=== PATIENT | female | born 1930 | race American Indian/Alaskan Native ===

== ENCOUNTER 2019-12-12 12:14 | Emergency (ER) | payer SELFPAY ==
[2019-12-12] MEDS ORDERED: ALUM-MAG HYDROXIDE-SIMETHICONE 200-200-20MG/5ML ORAL LIQD 30 ML PO ONE (13:33)
[2019-12-12] MEDS ORDERED: LIDOCAINE VISCOUS 2% 15 ML ORAL LIQD PO ONE (13:33)
--- NOTE | 2019-12-12 13:33 | Emergency Department Report ---
HPI <DARWIN ROSS - Last Filed: 12/12/19 18:13> - HPI HPI: This is an 89-year-old female who presents to the emergency department with complaint of some upper abdominal discomfort for the past 4 days that seems to worsen after eating or drinking. The patient describes her discomfort as "my abdomen feels low" and the patient also says that when it bothers her "it makes me feel short of breath." She denies any shortness of breath otherwise, any chest pain, fever, nausea, vomiting, constipation or diarrhea. When the patient eats or drinks food she started having some increased discomfort and also started having some burping. The patient denies any history of hypertension but does present with extremely elevated blood pressure. However, she does admit that she does not follow-up with any primary care physician. She has not taken anything for her symptoms prior to presentation today. No recent travel or sick contacts at home. <PANDA GARBER - Last Filed: 12/13/19 07:06> - General Chief Complaint: Abdominal Pain Time Seen by Provider: 12/12/19 13:08 ED Past Medical Hx <DARWIN ROSS - Last Filed: 12/12/19 18:13> - Past Medical History Hx Hypertension: Yes <PANDA GARBER - Last Filed: 12/13/19 07:06> - Medications Home Medications: Home Medications Medication Instructions Recorded Confirmed Last Taken Type Omeprazole 20 mg PO QDAY #20 capsule. 12/12/19 Unknown Rx amLODIPine 10 mg PO DAILY #30 tab 12/12/19 Unknown Rx ED Review of Systems ROS: Stated complaint: CHEST TIGHTNESS/HBP Other details as noted in HPI <DARWIN ROSS - Last Filed: 12/12/19 18:13> ROS: Stated complaint: CHEST TIGHTNESS/HBP Other details as noted in HPI Comment: All other systems reviewed and negative Constitutional: denies: chills, fever Eyes: denies: eye pain, vision change ENT: denies: ear pain, throat pain Respiratory: shortness of breath. denies: cough Cardiovascular: denies: chest pain, palpitations Gastrointestinal: abdominal pain. denies: vomiting Genitourinary: denies: dysuria, discharge Musculoskeletal: denies: back pain, arthralgia Skin: denies: rash, lesions Neurological: denies: headache, weakness <SHEAR,PANDA S - Last Filed: 12/13/19 07:06> Physical Exam - Physical Exam Vital Signs: Vital Signs 12/12/19 12/12/19 12/12/19 12:22 13:06 13:25 Temperature 98.6 F Pulse Rate 89 Respiratory 16 Rate Blood Pressure 205/94 233/99 O2 Sat by Pulse 98 100 Oximetry 12/12/19 12/12/19 12/12/19 13:30 13:39 14:00 Temperature Pulse Rate 76 70 Respiratory 14 16 Rate Blood Pressure 225/98 225/98 199/97 O2 Sat by Pulse 99 99 Oximetry 12/12/19 12/12/19 12/12/19 14:30 14:44 15:00 Temperature Pulse Rate 67 70 Respiratory 21 15 Rate Blood Pressure 190/83 213/96 214/80 O2 Sat by Pulse 99 100 Oximetry 12/12/19 12/12/19 12/12/19 15:30 15:59 16:00 Temperature Pulse Rate 59 L 63 62 Respiratory 22 15 Rate Blood Pressure 194/78 194/78 214/87 O2 Sat by Pulse 99 99 99 Oximetry 12/12/19 12/12/19 12/12/19 16:08 16:15 16:30 Temperature Pulse Rate 63 63 Respiratory 19 13 Rate Blood Pressure 214/87 191/75 178/80 O2 Sat by Pulse 99 99 Oximetry <DARWIN ROSS - Last Filed: 12/12/19 18:13> - Physical Exam Vital Signs: Vital Signs 12/12/19 13:25 O2 Sat by Pulse 100 Oximetry Physical Exam: GENERAL: The patient is well-developed well-nourished. HENT: Normocephalic. Atraumatic. Patient has moist mucous membranes. EYES: Extraocular motions are intact. NECK: Supple. Trachea is midline. CHEST/LUNGS: Clear to auscultation. There is no respiratory distress noted. HEART/CARDIOVASCULAR: Regular. There is no tachycardia. There is no murmur. ABDOMEN: Abdomen is soft. There is upper abdominal tenderness to palpation. No guarding. Patient has normal bowel sounds. There is no abdominal distention. SKIN: Skin is warm and dry. NEURO: The patient is awake, alert, and oriented. The patient is cooperative. Normal speech. MUSCULOSKELETAL: There is no tenderness or deformity. There is no limitation range of motion. <PANDA GARBER - Last Filed: 12/13/19 07:06> ED Course Vital Signs 12/12/19 12/12/19 12/12/19 12:22 13:06 13:25 Temperature 98.6 F Pulse Rate 89 Respiratory 16 Rate Blood Pressure 205/94 233/99 O2 Sat by Pulse 98 100 Oximetry 12/12/19 12/12/19 12/12/19 13:30 13:39 14:00 Temperature Pulse Rate 76 70 Respiratory 14 16 Rate Blood Pressure 225/98 225/98 199/97 O2 Sat by Pulse 99 99 Oximetry 12/12/19 12/12/19 12/12/19 14:30 14:44 15:00 Temperature Pulse Rate 67 70 Respiratory 21 15 Rate Blood Pressure 190/83 213/96 214/80 O2 Sat by Pulse 99 100 Oximetry 12/12/19 12/12/19 12/12/19 15:30 15:59 16:00 Temperature Pulse Rate 59 L 63 62 Respiratory 22 15 Rate Blood Pressure 194/78 194/78 214/87 O2 Sat by Pulse 99 99 99 Oximetry 12/12/19 12/12/19 12/12/19 16:08 16:15 16:30 Temperature Pulse Rate 63 63 Respiratory 19 13 Rate Blood Pressure 214/87 191/75 178/80 O2 Sat by Pulse 99 99 Oximetry <DARWIN RSOS - Last Filed: 12/12/19 18:13> Vital Signs 12/12/19 13:25 O2 Sat by Pulse 100 Oximetry <PANDA GARBER - Last Filed: 12/13/19 07:06> ED Medical Decision Making - Lab Data Result diagrams: 12/12/19 13:39 12/12/19 14:46 <DARWIN ROSS - Last Filed: 12/12/19 18:13> - Lab Data Result diagrams: 12/12/19 13:39 12/12/19 14:46 - EKG Data -: EKG Interpreted by Me EKG shows normal: sinus rhythm, axis, intervals, QRS complexes, ST-T waves Rate: normal - EKG Data When compared to previous EKG there are: previous EKG unavailable Interpretation: normal EKG - Radiology Data Radiology results: report reviewed, image reviewed interpreted by me: Chest x-ray does not show any acute process. There are no pleural effusions, obvious pneumonia and there is no pneumothorax. No significant cardiomegaly. Abdominal x-ray shows nonspecific nonobstructive bowel gas. CT abdomen pelvis w con INDICATION: Abdominal pain. TECHNIQUE: All CT scans at this location are performed using the following dose modulation technique: Automated exposure control. Helical slices were obtained through the abdomen and pelvis. 100 cc of Omnipaque 300 is administered. COMPARISON: None available. FINDINGS: Abdomen: No acute abnormality is seen in the lower chest. The liver, spleen, pancreas, adrenal glands, and kidneys show no acute abnormality. Atherosclerotic calcifications are noted in the aorta and iliac arteries. There is no adenopathy. No obstruction, inflammation, or free air. There is a large amount of stool noted throughout the colon. There is colonic diverticulosis. There is no CT evidence of diverticulitis. Pelvis: There is no obstruction or inflammation. There are no abnormal collections. On review of bone windows, no acute osseous abnormalities are seen. Degenerative changes are noted in the imaged spine and in the hips. IMPRESSION: There is a large amount of stool noted throughout the colon. There is no obstruction, inflammation, or free air. - Medical Decision Making This patient presents with a few days of some upper abdominal discomfort that worsens with eating or drinking. Labs have been unremarkable. Chest x-ray and abdominal x-ray did not show any acute processes. Patient had a CT scan of the abdomen pelvis with IV contrast that shows a large amount of stool showing some constipation otherwise no obstruction, inflammation, free air, or any other acut e processes. Patient presents with extremely elevated blood pressure. This is probably her baseline as she does not follow with a primary care physician. She was given a few doses of antihypertensive medications and she came down to a more reasonable level. Otherwise the rest of her vitals have been reassuring throughout her ED course. Patient says she is feeling well and both she and her son are asking for discharge home. She has been started on amlodipine for her blood pressure and has been given a prescription for omeprazole for what appears to be some level of acid reflux. Patient is also been given referrals for primary care. We discussed staying away from foods that are high in salt and caffeinated products and keeping a blood pressure log. She will return to the ER with any worsening of her symptoms or with any acute distress. <PANDA GARBER - Last Filed: 12/13/19 07:06> Critical care attestation.: If time is entered above; I have spent that time in minutes in the direct care of this critically ill patient, excluding procedure time. <DARWIN ROSS - Last Filed: 12/12/19 18:13> Critical Care Time: No Critical care attestation.: If time is entered above; I have spent that time in minutes in the direct care of this critically ill patient, excluding procedure time. <PANDA GARBER - Last Filed: 12/13/19 07:06> ED Disposition Is pt being admited?: No Does the pt Need Aspirin: No Time of Disposition: 18:13 <DARWIN ROSS - Last Filed: 12/12/19 18:13> Is pt being admited?: No <PANDA GARBER - Last Filed: 12/13/19 07:06> Clinical Impression: Asymptomatic hypertensive urgency, Upper abdominal pain Anemia Qualifiers: Anemia type: unspecified type Qualified Code(s): D64.9 - Anemia, unspecified Abdominal pain Qualifiers: Abdominal location: upper abdomen, unspecified Qualified Code(s): R10.10 - Upper abdominal pain, unspecified Hypertension Qualifiers: Hypertension type: essential hypertension Qualified Code(s): I10 - Essential (primary) hypertension Disposition: - TO HOME OR SELFCARE Condition: Stable Instructions: Abdominal Pain (ED), Hypertension (ED) Additional Instructions: Please follow-up with a primary care physician in the next few days. Return to the emergency department with any worsening of your symptoms or with any acute distress. Try to stay away from foods that are high in salt and caffeinated products to help with your blood pressure. Keep a blood pressure log. I am starting you on a blood pressure medication called amlodipine/Norvasc that is taken once per day, usually in the morning. Prescriptions: amLODIPine 10 mg PO DAILY #30 tab Omeprazole 20 mg PO QDAY #20 capsule.dr Referrals: CHRIS ALLEN MD [Staff Physician] - 3-5 Days JOSE FUENTES MD [Staff Physician] - 3-5 Days ISAMAR GARZA MD [Staff Physician] - 3-5 Days
--- NOTE | 2019-12-12 13:57 | XRay Report ---
ABDOMEN 3 VIEW(S) INDICATION / CLINICAL INFORMATION: Upper abd pain. COMPARISON: None available. FINDINGS: TUBES / LINES: None. BOWEL GAS PATTERN: Large volume of stool in the colon. No appreciable obstruction. FREE AIR / EXTRALUMINAL GAS: None seen. ADDITIONAL FINDINGS: Moderate generalized spondylosis in the thoracic and lumbar spine. LUNGS: Visualized lungs show no significant abnormality. IMPRESSION: 1. No acute findings. Large volume of stool in colon suggesting constipation. Signer Name: Joaquin Quiros MD Signed: 12/12/2019 1:53 PM Workstation Name: [id number]
[2019-12-12 14:27] LABS: Basophils % (Auto) 0.5 % (0.0-1.8); Eosinophils # (Auto) 0.3 K/mm3 (0.0-0.4); Hematocrit 25.4 % (30.3-42.9); Hemoglobin 8.7 gm/dl (10.1-14.3); Lymphocytes # (Auto) 2.3 K/mm3 (1.2-5.4); Lymphocytes % (Auto) 42.9 % (13.4-35.0); Mean Corpuscular HGB Conc 34 % (30-34); Mean Corpuscular Volume 92 fl (79-97); Monocytes # (Auto) 0.3 K/mm3 (0.0-0.8); Monocytes % (Auto) 5.4 % (0.0-7.3); Platelet Count 198 K/mm3 (140-440); Red Blood Count 2.76 M/mm3 (3.65-5.03); Red Cell Distribution Width 16.1 % (13.2-15.2)
[2019-12-12 14:36] LABS: INR 1.09 (0.87-1.13)
[2019-12-12] MEDS ORDERED: amLODIPine 5 MG TAB PO ONE (14:38)
[2019-12-12] MEDS ORDERED: hydrALAZINE 25 MG TAB PO ONE (15:38)
[2019-12-12 16:05] LABS: Calcium 9.9 mg/dL (8.4-10.2)
--- NOTE | 2019-12-12 17:27 | Cat Scan Report ---
CT abdomen pelvis w con INDICATION: Abdominal pain. TECHNIQUE: All CT scans at this location are performed using the following dose modulation technique: Automated exposure control. Helical slices were obtained through the abdomen and pelvis. 100 cc of Omnipaque 30 0 is administered. COMPARISON: None available. FINDINGS: Abdomen: No acute abnormality is seen in the lower chest. The liver, spleen, pancreas, adrenal glands , and kidneys show no acute abnormality. Atherosclerotic calcifications are noted in the aorta and il iac arteries. There is no adenopathy. No obstruction, inflammation, or free air. There is a large amount of stool noted throughout the colon. There is colonic diverticulosis. There i s no CT evidence of diverticulitis. Pelvis: There is no obstruction or inflammation. There are no abnormal collections. On review of bone windows, no acute osseous abnormalities are seen. Degenerative changes are noted in the imaged spine and in the hips. IMPRESSION: There is a large amount of stool noted throughout the colon. There is no obstruction, inflammation, or free air. Signer Name: Alex Odom MD Signed: 12/12/2019 5:23 PM Workstation Name: [id number]
[2019-12-12 18:17] VITALS: BP 180/77
== END 2019-12-12 18:36 | disposition home or self-care (01) ==
LOC: ED 12:14
DX: D64.9 Anemia, unspecified (principal); I10 Essential (primary) hypertension; R10.10 Upper abdominal pain, unspecified; Z79.899 Other long term (current) drug therapy
CPT/HCPCS: 36415; 74022; 74177; 80053; 83690; 84484; 85025; 85610; 93005; 96374; 99284; Q9967

== ENCOUNTER 2021-05-02 05:08 | Inpatient (IN) | payer SELFPAY ==
--- NOTE | 2021-05-02 05:25 | Emergency Department Report ---
ED General Adult HPI - General Stated complaint: AMS Time Seen by Provider: 05/02/21 05:15 Source: EMS - History of Present Illness Initial comments: Patient is 89 years old female with history of hypertension. Patient brought to the emergency room via EMS for evaluation of altered mental status and decreased responsiveness. EMS stated that when they arrived to the patient patient was altered and her heart rate showed 38 beats per minutes. EMS stated that they gave patient 0.5 mg of atropine and her heart rate went to 65 and then came down to 4 5 bpm. Upon arrival to the ER patient is alert however she is confused. Patient is hard hearing. Patient EKG showed sinus bradycardia with a rate of 41. Patient is taking amlodipine 10 mg for her hypertension. Patient also noticed to have distended abdomen. - Related Data Previous Rx's Medication Instructions Recorded Last Taken Type Omeprazole 20 mg PO QDAY #20 capsule. 12/12/19 Unknown Rx amLODIPine 10 mg PO DAILY #30 tab 12/12/19 Unknown Rx Allergies Allergy/AdvReac Type Severity Reaction Status Date / Time No Known Allergies Allergy Verified 05/02/21 06:02 ED Review of Systems ROS: Stated complaint: AMS Other details as noted in HPI Comment: Unobtainable due to pts medical conditions ED Past Medical Hx - Past Medical History Hx Hypertension: Yes - Medications Home Medications: Home Medications Medication Instructions Recorded Confirmed Last Taken Type Omeprazole 20 mg PO QDAY #20 capsule. 12/12/19 Unknown Rx amLODIPine 10 mg PO DAILY #30 tab 12/12/19 Unknown Rx ED Physical Exam - General General appearance: alert, in no apparent distress - Head Head exam: Present: atraumatic, normocephalic, normal inspection - Eye Eye exam: Present: normal appearance - Respiratory Respiratory exam: Present: normal lung sounds bilaterally - Cardiovascular Cardiovascular Exam: Present: bradycardia - GI/Abdominal GI/Abdominal exam: Present: soft, distended. Absent: tenderness, guarding, rebound, rigid, pulsatile mass - Extremities Exam Extremities exam: Present: normal inspection, normal capillary refill. Absent: calf tenderness - Back Exam Back exam: Absent: CVA tenderness (R), CVA tenderness (L) - Neurological Exam Neurological exam: Present: alert, altered - Skin Skin exam: Present: warm ED Course Vital Signs 05/02/21 05/02/21 05/02/21 05:23 05:50 06:25 Temperature 88.9 F L Pulse Rate 41 L 119 H Respiratory 20 20 20 Rate Blood Pressure Blood Pressure 138/71 134/73 [Left] O2 Sat by Pulse 100 99 100 Oximetry 05/02/21 05/02/21 05/02/21 06:53 07:11 07:30 Temperature Pulse Rate 60 60 60 Respiratory 25 H 20 Rate Blood Pressure 72/39 Blood Pressure 79/43 111/59 [Left] O2 Sat by Pulse 100 100 100 Oximetry 05/02/21 05/02/21 05/02/21 08:51 11:29 12:33 Temperature Pulse Rate 60 46 L 46 L Respiratory 20 20 Rate Blood Pressure 110/52 Blood Pressure 112/50 106/51 [Left] O2 Sat by Pulse 100 97 95 Oximetry 05/02/21 05/02/21 05/02/21 12:46 13:01 13:15 Temperature Pulse Rate 46 L 46 L 51 L Respiratory 22 20 21 Rate Blood Pressure 112/53 114/50 Blood Pressure [Left] O2 Sat by Pulse 85 88 93 Oximetry 05/02/21 05/02/21 05/02/21 13:31 13:45 14:01 Temperature Pulse Rate 47 L 45 L 43 L Respiratory 20 18 20 Rate Blood Pressure 111/42 117/45 102/51 Blood Pressure [Left] O2 Sat by Pulse 100 100 100 Oximetry 05/02/21 05/02/21 05/02/21 14:15 14:31 14:45 Temperature Pulse Rate 54 L 44 L 44 L Respiratory 18 20 20 Rate Blood Pressure 102/51 102/51 100/46 Blood Pressure [Left] O2 Sat by Pulse 100 99 98 Oximetry 05/02/21 05/02/21 05/02/21 15:01 15:15 15:31 Temperature Pulse Rate 44 L 43 L 45 L Respiratory 20 20 20 Rate Blood Pressure 105/46 99/46 99/42 Blood Pressure [Left] O2 Sat by Pulse 100 97 100 Oximetry 05/02/21 05/02/21 05/02/21 15:45 16:01 16:15 Temperature Pulse Rate 49 L 52 L 52 L Respiratory 21 20 20 Rate Blood Pressure 124/54 139/62 136/60 Blood Pressure [Left] O2 Sat by Pulse 72 L 100 100 Oximetry 05/02/21 05/02/21 05/02/21 16:31 16:45 17:01 Temperature Pulse Rate 54 L 51 L 50 L Respiratory 20 20 21 Rate Blood Pressure 131/58 136/62 126/59 Blood Pressure [Left] O2 Sat by Pulse 98 100 100 Oximetry 05/02/21 05/02/21 17:15 17:31 Temperature Pulse Rate 52 L 54 L Respiratory 20 21 Rate Blood Pressure 137/60 132/63 Blood Pressure [Left] O2 Sat by Pulse 98 98 Oximetry - Reevaluation(s) Reevaluation #1: 05/02/21 05:56 Patient heart rate dropped to 35 beats per minutes. Patient given atropine 1 mg IV and transcutaneous pacing started. ED Medical Decision Making - Lab Data Result diagrams: 05/04/21 09:41 05/04/21 09:41 Critical Care Time: Yes Critical care time in (mins) excluding proc time.: 35 Critical care attestation.: If time is entered above; I have spent that time in minutes in the direct care of this critically ill patient, excluding procedure time. ED Disposition Clinical Impression: Symptomatic bradycardia Disposition: ADMITTED INPATIENT Is pt being admited?: Yes Condition: Stable
--- NOTE | 2021-05-02 05:39 | XRay Report ---
CHEST 1 VIEW 05/02/2021 5:19 AM INDICATION / CLINICAL INFORMATION: Chest Pain. COMPARISON: 12/12/19 FINDINGS: SUPPORT DEVICES: None. HEART / MEDIASTINUM: Heart is moderately enlarged with slight increase since prior study. Increased r ight and left paratracheal soft tissue density in the superior mediastinum. LUNGS / PLEURA: No significant pulmonary or pleural abnormality. No pneumothorax. ADDITIONAL FINDINGS: No significant additional findings. IMPRESSION: 1. Moderate cardiomegaly but no acute pulmonary or pleural findings. 2. Right and left paratracheal soft tissue density in the superior mediastinum which could represent ectatic great vessels versus adenopathy. CT chest with contrast would be helpful for further evaluati on. Signer Name: Zach Cross MD Signed: 05/02/2021 5:34 AM Workstation Name: [id number]
[2021-05-02 05:53] LABS: INR 1.07 (0.87-1.13)
[2021-05-02 05:54] LABS: Partial Thromboplastin Time 41.7 Sec. (24.2-36.6)
[2021-05-02] MEDS ORDERED: ATROPINE 0.1% (1 MG/10 ML) CARDIAC SYRINGE IV ONE (05:54)
[2021-05-02] MEDS ORDERED: ATROPINE 0.1% (1 MG/10 ML) CARDIAC SYRINGE ONE (05:56)
[2021-05-02 06:05] LABS: Blood Urea Nitrogen 17 mg/dL (7-17); Calcium 8.8 mg/dL (8.4-10.2); Hemolysis Index 2
[2021-05-02 06:06] LABS: BUN/Creatinine Ratio 24
[2021-05-02 06:07] LABS: Alanine Aminotransferase 115 units/L (7-56); Albumin 2.9 g/dL (3.9-5)
[2021-05-02 06:08] LABS: Bilirubin,Direct < 0.2 mg/dL (0-0.2)
[2021-05-02 06:17] LABS: Basophils % (Auto) 0.3 % (0.0-1.8); Eosinophils % (Auto) 1.3 % (0.0-4.3); Hematocrit 22.2 % (30.3-42.9); Hemoglobin 7.4 gm/dl (10.1-14.3); Lymphocytes # (Auto) 0.5 K/mm3 (1.2-5.4); Lymphocytes % (Auto) 17.5 % (13.4-35.0); Mean Corpuscular HGB Conc 33 % (30-34); Mean Corpuscular Volume 94 fl (79-97); Monocytes # (Auto) 0.1 K/mm3 (0.0-0.8); Monocytes % (Auto) 4.4 % (0.0-7.3); Platelet Count 176 K/mm3 (140-440); Red Blood Count 2.36 M/mm3 (3.65-5.03); Red Cell Distribution Width 18.2 % (13.2-15.2)
[2021-05-02] MEDS ORDERED: EPINEPHrine 1 MG/10 ML SYRINGE ONE (06:19)
--- NOTE | 2021-05-02 06:35 | Event Note ---
Date: 05/02/21 EDWA intubation note Called to the room for CODE BLUE in progress. Intubation note Consent was unobtainable due to patient condition Preoxygenation with 100% oxygen A size 7.0 mm ET tube was inserted orally on first attempt using glidescope There was symmetric chest rise and bilateral breath sounds post intubation A CO2 indicator was used for confirmation and resulted in positive CO2 return Pulse oximetry post intubation was 100% ET tube was taped at 21 cm at the lips Post intubation chest x-ray confirmed good tube location The patient tolerated the procedure well There were no complications ROSC obtained after 1 round of epi
--- NOTE | 2021-05-02 07:03 | XRay Report ---
CHEST 1 VIEW 05/02/2021 6:45 AM INDICATION / CLINICAL INFORMATION: Status post cardiac arrest. COMPARISON: 05/02/21 5:19 AM FINDINGS: SUPPORT DEVICES: Endotracheal tube has been placed with the tip 4.9 cm above the estela. HEART / MEDIASTINUM: Enlarged but stable. LUNGS / PLEURA: Interval development of mild interstitial edema. No acute airspace disease. No pneumo thorax. ADDITIONAL FINDINGS: No significant additional findings. IMPRESSION: 1. Endotracheal tube in expected position. 2. Cardiomegaly with mild interstitial edema. Signer Name: Zach Cross MD Signed: 05/02/2021 6:58 AM Workstation Name: [id number]
[2021-05-02] MEDS ORDERED: DOPamine 800 MG/D5W 250ML 800 MG/250 ML BAG IV ONE (07:07)
[2021-05-02 07:20] LABS: Free T4 (Free Thyroxine) 0.61 ng/dL (0.76-1.46)
[2021-05-02] MEDS ORDERED: HEPARIN/NS 5000 UNIT/500ML 1,000 ML IR ONE (07:49)
[2021-05-02] MEDS ORDERED: MIDAZOLAM 2 MG/2 ML INJ ONE (07:49)
[2021-05-02] MEDS ORDERED: fentaNYL 100 MCG/2 ML INJ ONE (07:50)
[2021-05-02] MEDS ORDERED: LIDOCAINE (2%) 20 MG/1 ML VIAL 20 ML MDV INFILTRATI ONE (07:50)
[2021-05-02] MEDS ORDERED: SODIUM CHLORIDE 0.9% 500 ML 500 ML ONE (07:52)
[2021-05-02] MEDS ORDERED: ACETAMINOPHEN 325 MG/10.15 ML ORAL LIQD UNIT DOSE FEEDTUBE PRN (08:59)
[2021-05-02] MEDS ORDERED: MORPHINE 2 MG/1 ML INJ IV PRN (08:59)
[2021-05-02] MEDS ORDERED: ONDANSETRON 4 MG/2 ML INJ IV PRN (08:59)
--- NOTE | 2021-05-02 09:03 | History and Physical Report ---
History of Present Illness Date of examination: 05/02/21 Chief complaint: unresponsive, bradycardic. History of present illness: 89-year-old female with a past medical history of hyper tension presenting to our facility with altered mental status, decreased responsiveness, bradycardia noted by EMS provider 38 bpm. EMS gave 0.5 mg atropine and heart rate improved to 65 however patient shortly thereafter bradycardia down to 45 bpm. In the emergency department patient was confused she is hard of hearing. During this time. In the emergency department she lost the pulse and went into PEA arrest. ACLS protocol was initiated by ED staff and ROSC was achieved after 1 round of epi. Patient was immediately taken to the [facility] by cardiology for transvenous pacemaker maker placement. On my encounter the patient was intubated but not sedated. She is alert however does not appear to follow any commands. Again she appears to be hard of hearing so I advised the RN to see if we can allocate hearing aid. Patient is currently on dopamine drip. Heart rate appeared to be paced on monitor at 60 bpm. Additional history obtained from Hope Flood (daughter) and Cheko Flood (grandson) ([phone]). does not wear hearing aid. Per family, patient has not been speaking properly. She has been exhibiting mumbling/halluicination/strange paranoid behavior approximately 2 weeks ago. She was seen by her primary care physician who noticed her blood pressure to be extremely high in the office, documenting systolic of 240 mmHg. She was treated for high blood pressure and UTI at the time. She improved after this per family but subsequently worsened and regressed to same behavior exhibited two weeks ago. It was not until she became unresponsive that they became concerned and called EMS. Per family, patient has no cardiac history aside from hypertension and has had no major procedures. I also discussed advanced directives with family and they stated they would like for patient to be a full code. PMHx: Hypertension, legally blind, recent UTI PSHx: No recent surgery FHx: review SHx: Tobacco use- 40 years smoker ETOH Use- not drinking Recreational Drug Use-denied PCP- Dr. Hai Ahmadi Lives with daughter and grandson Full Code Medications and Allergies Allergies Allergy/AdvReac Type Severity Reaction Status Date / Time No Known Allergies Allergy Verified 05/02/21 06:02 Home Medications Medication Instructions Recorded Confirmed Last Taken Type Omeprazole 20 mg PO QDAY #20 capsule. 12/12/19 Unknown Rx amLODIPine 10 mg PO DAILY #30 tab 12/12/19 Unknown Rx Active Meds: Active Medications Dopamine HCl/Dextrose (Dopamine 800 Mg/D5w 250ml) 800 mg in 250 mls @ 4.495 mls/hr IV TITR ONE; Protocol Stop: 05/04/21 14:44 Last Admin: 05/02/21 07:38 Dose: 5 mcg/kg/min, 4.495 mls/hr Review of Systems ROS unobtainable: due to endotracheal tube, due to mental status Exam - Physical Exam Narrative exam: Physical Exam: VITAL SIGNS: Reviewed. GENERAL: The patient appears normally developed, Vital signs as documented. HEAD: No signs of head trauma. EYES: Pupils are equal. Extraocular motions intact. EARS: Hearing grossly intact. MOUTH: Oropharynx is normal. NECK: No adenopathy, no JVD. CHEST: Chest with clear breath sounds bilaterally. No wheezes, rales, or rhonchi. CARDIAC: paced, 60 bpm. S1 and S2, without murmurs, gallops, or rubs. VASCULAR: No Edema. Peripheral pulses normal and equal in all extremities. ABDOMEN: Soft, non tender and non distended. No rebound or guarding, and no masses palpated. Bowel Sounds normal. MUSCULOSKELETAL: Good range of motion of all major joints. Extremities without clubbing, cyanosis or edema. NEUROLOGIC EXAM: alert, oriented x 0. no focal sensory or strength deficits. PSYCHIATRIC: uanble to assess. SKIN: detail exam as documented in skin assessment - Constitutional Vitals: Temp Pulse Resp BP Pulse Ox 88.9 F L 60 20 112/50 100 05/02/21 05:23 05/02/21 08:51 05/02/21 08:51 05/02/21 08:51 05/02/21 08:51 HEART Score - HEART Score Troponin: Troponin T < 0.010 ng/mL (0.00-0.029) 05/02/21 05:16 Results - Labs CBC & Chem 7: 05/02/21 05:16 05/02/21 05:16 Labs: Laboratory Last Values WBC 2.9 K/mm3 (4.5-11.0) L 05/02/21 05:16 RBC 2.36 M/mm3 (3.65-5.03) L 05/02/21 05:16 Hgb 7.4 gm/dl (10.1-14.3) L 05/02/21 05:16 Hct 22.2 % (30.3-42.9) L 05/02/21 05:16 MCV 94 fl (79-97) 05/02/21 05:16 MCH 31 pg (28-32) 05/02/21 05:16 MCHC 33 % (30-34) 05/02/21 05:16 RDW 18.2 % (13.2-15.2) H 05/02/21 05:16 Plt Count 176 K/mm3 (140-440) 05/02/21 05:16 Lymph % (Auto) 17.5 % (13.4-35.0) 05/02/21 05:16 [place] % (Auto) 4.4 % (0.0-7.3) 05/02/21 05:16 Eos % (Auto) 1.3 % (0.0-4.3) 05/02/21 05:16 Baso % (Auto) 0.3 % (0.0-1.8) 05/02/21 05:16 Lymph # (Auto) 0.5 K/mm3 (1.2-5.4) L 05/02/21 05:16 [place] # (Auto) 0.1 K/mm3 (0.0-0.8) 05/02/21 05:16 Eos # (Auto) 0.0 K/mm3 (0.0-0.4) 05/02/21 05:16 Baso # (Auto) 0.0 K/mm3 (0.0-0.1) 05/02/21 05:16 Seg Neutrophils % 76.5 % (40.0-70.0) H 05/02/21 05:16 Seg Neutrophils # 2.2 K/mm3 (1.8-7.7) 05/02/21 05:16 PT 15.1 Sec. (12.2-14.9) H 05/02/21 05:16 INR 1.07 (0.87-1.13) 05/02/21 05:16 APTT 41.7 Sec. (24.2-36.6) H 05/02/21 05:16 Sodium 129 mmol/L (137-145) L 05/02/21 05:16 Potassium 6.2 mmol/L (3.6-5.0) H* 05/02/21 05:16 Chloride 97.0 mmol/L (98-107) L 05/02/21 05:16 Carbon Dioxide 23 mmol/L (22-30) 05/02/21 05:16 Anion Gap 15 mmol/L 05/02/21 05:16 BUN 17 mg/dL (7-17) 05/02/21 05:16 Creatinine 0.7 mg/dL (0.6-1.2) 05/02/21 05:16 Estimated GFR > 60 ml/min 05/02/21 05:16 BUN/Creatinine Ratio 24 % 05/02/21 05:16 Glucose 92 mg/dL (65-100) 05/02/21 05:16 Lactic Acid 0.80 mmol/L (0.7-2.0) 05/02/21 05:53 Calcium 8.8 mg/dL (8.4-10.2) 05/02/21 05:16 Total Bilirubin < 0.20 mg/dL (0.1-1.2) 05/02/21 05:17 Direct Bilirubin < 0.2 mg/dL (0-0.2) 05/02/21 05:17 Indirect Bilirubin 0.0 mg/dL 05/02/21 05:17 AST 144 units/L (5-40) H 05/02/21 05:17 ALT 115 units/L (7-56) H 05/02/21 05:17 Alkaline Phosphatase 106 units/L (35-129) 05/02/21 05:17 Total Creatine Kinase 189 units/L (30-135) H 05/02/21 05:53 Troponin T < 0.010 ng/mL (0.00-0.029) 05/02/21 05:16 NT-Pro-B Natriuret Pep 341.7 pg/mL (0-900) 05/02/21 05:17 Total Protein 9.6 g/dL (6.3-8.2) H 05/02/21 05:17 Albumin 2.9 g/dL (3.9-5) L 05/02/21 05:17 Albumin/Globulin Ratio 0.4 % 05/02/21 05:17 TSH 10.350 mlU/mL (0.270-4.200) H 05/02/21 06:41 Free T4 0.61 ng/dL (0.76-1.46) L 05/02/21 06:41 Assessment and Plan Assessment and plan: Family contact: Cheko Flood (grandson): [phone] - has requested you call him first. His Irish is better and concerned mother might not catch everything. Hope Flood (daughter): [phone] Dispo: ICU #Symptomatic bradycardia with subsequent PEA arrest status post ROSC - bradycardic [employer] 35bpm, given atropine x 1 with transient response, CPR in ED s/p epi x 1 - s/p transvenous pacemaker by cardiology, denis paced 60 bpm on my encounter - ECHO ordered - may need ischemic eval, will differ to cardiology - wean pressors and maintain MAP > 65. # Acute hypoxic respiratory failure - unresponsive, altered on admission, intubated for airway protection - MV settings: , MV management per [facility] - daily SAT/SBT - ABG/CXR q48hr - CCM consulted #Cardiogenic shock - management as above - improved after transvenous pacer placement - wean pressor for MAP > 65. - hollis for strict I/O #Hypertension Hold antihypertensive treatment at this time due to low pressures #Hyperkalemia - will initiate treatment with kionex, albuterol, insulin, D50, calcium gluconate. - repeat BMP this afternoon #Hypothermia - william hugger - serial temp monitoring #Transaminitis - possibly secondary to arrest, will trend #Acute metabolic encephalopathy - ddx: delirium from acute illness vs underlying psych - per family 2 wk history of odd behavior, mumbling, paranoid behavior - once patient is more alert may need to consider psych consult or at least recommend this is addressed as outpatient - UA pending, was tx as OP for UTI but unclear if patient finished abx rx. - Ct brain ordered. #Euthyroid sick syndrome - elevated thyroid markers in acute illness. will defer tx a this time. #DVT prophylaxis - lovenox 30 mg subq daily Full Code Advance care planning The high probability of a clinically significant, sudden or life threatening deterioration of the [multi] system(s) required my full and direct attention, intervention and personal management. The aggregate critical care time was [60] minutes. This time is in addition to time spent performing reported procedures but includes the following: [x] Data Review and interpretation [x] Patient assessment and monitoring of vital signs [x] Documentation [x] Medication orders and management
--- NOTE | 2021-05-02 09:28 | Consultation ---
History of Present Illness Consult date: 05/02/21 Requesting physician: АННА GARCIA Consult reason: bradycardia History of present illness: HPI obtained from chart. Pt intubated and minimally responsive during evaluation. Pt presented to ED with altered mental status and subsequently became asystolic and hypotensive. Pt urgently taken to [facility] for temporatry transvenous PPM. Past History Past Medical History: other (No previous records. No family at bedside) Medications and Allergies Allergies Allergy/AdvReac Type Severity Reaction Status Date / Time No Known Allergies Allergy Verified 05/02/21 06:02 Home Medications Medication Instructions Recorded Confirmed Last Taken Type Omeprazole 20 mg PO QDAY #20 capsule.dr 12/12/19 Unknown Rx amLODIPine 10 mg PO DAILY #30 tab 12/12/19 Unknown Rx Active Meds: Active Medications Acetaminophen (Acetaminophen 325 Mg/10.15 Ml Oral Liqd Unit Dose) 650 mg FEEDTUBE Q6H PRN PRN Reason: Pain MILD(1-3)/Fever >100.5/[place] Albuterol/Ipratropium (Ipratropium/Albuterol Sulfate 3 Ml Ampul.Neb) 1 ampul IH Q6HRT [facility] Budesonide (Budesonide 0.5 Mg/2 Ml Nebu) 0.5 mg IH Q12HRT [facility] Enoxaparin Sodium (Enoxaparin 30 Mg/0.3 Ml Inj) 30 mg SUB-Q QDAY [facility] Famotidine (Famotidine 20 Mg/2 Ml Inj) 10 mg IV BID [facility] Dopamine HCl/Dextrose (Dopamine 800 Mg/D5w 250ml) 800 mg in 250 mls @ 4.495 mls/hr IV TITR ONE; Protocol Stop: 05/04/21 14:44 Last Admin: 05/02/21 07:38 Dose: 5 mcg/kg/min, 4.495 mls/hr NORepinephrine/NS 8 MG-250 ML (Norepinephrine/Ns 8 Mg-250 Ml (Double Conc)) 8 mg in 250 mls @ 3.75 mls/hr IV TITRATE [facility]; Protocol Sodium Chloride (Nacl 0.9% 1000 Ml) 1,000 mls @ 999 mls/hr IV BOLUS ONE Stop: 05/02/21 10:58 Morphine Sulfate (Morphine 2 Mg/1 Ml Inj) 2 mg IV Q4H PRN PRN Reason: Pain, Moderate (4-6) Ondansetron HCl (Ondansetron 4 Mg/2 Ml Inj) 4 mg IV Q8H PRN PRN Reason: Nausea And Vomiting Sodium Chloride (Sodium Chloride 0.9% 10 Ml Flush Syringe) 10 ml IV BID [facility] Sodium Chloride (Sodium Chloride 0.9% 10 Ml Flush Syringe) 10 ml IV PRN PRN PRN Reason: LINE FLUSH Review of Systems ROS unobtainable: due to endotracheal tube, due to mental status Physical Examination Vital Signs Temp Pulse Resp BP Pulse Ox 88.9 F L 41 L 20 138/71 100 05/02/21 05:23 05/02/21 05:23 05/02/21 05:23 05/02/21 05:23 05/02/21 05:23 General appearance: mild distress HEENT: Positive: Mucus Membranes Moist Neck: Positive: neck supple, trachea midline Cardiac: Positive: Irregularly Regular Lungs: Positive: Ventilated Respirations, Other Neuro: Positive: Other (Pt intubated not following commands) Abdomen: Positive: Distended Skin: Negative: Rash Extremities: Present: Cool. Absent: edema Results 05/02/21 05:16 05/02/21 05:16 Cardiac Enzymes 05/02/21 Range/Units 05:17 AST 144 H (5-40) units/L Coagulation 05/02/21 Range/Units 05:16 PT 15.1 H (12.2-14.9) Sec. INR 1.07 (0.87-1.13) APTT 41.7 H (24.2-36.6) Sec. CBC 05/02/21 Range/Units 05:16 WBC 2.9 L (4.5-11.0) K/mm3 RBC 2.36 L (3.65-5.03) M/mm3 Hgb 7.4 L (10.1-14.3) gm/dl Hct 22.2 L (30.3-42.9) % Plt Count 176 (140-440) K/mm3 Lymph # (Auto) 0.5 L (1.2-5.4) K/mm3 [place] # (Auto) 0.1 (0.0-0.8) K/mm3 Eos # (Auto) 0.0 (0.0-0.4) K/mm3 Baso # (Auto) 0.0 (0.0-0.1) K/mm3 Comprehensive Metabolic Panel 05/02/21 05/02/21 Range/Units 05:16 05:17 Sodium 129 L (137-145) mmol/L Potassium 6.2 H* (3.6-5.0) mmol/L Chloride 97.0 L (98-107) mmol/L Carbon Dioxide 23 (22-30) mmol/L BUN 17 (7-17) mg/dL Creatinine 0.7 (0.6-1.2) mg/dL Glucose 92 (65-100) mg/dL Calcium 8.8 (8.4-10.2) mg/dL Direct Bilirubin < 0.2 (0-0.2) mg/dL Indirect Bilirubin 0.0 mg/dL AST 144 H (5-40) units/L ALT 115 H (7-56) units/L Alkaline Phosphatase 106 (35-129) units/L Total Protein 9.6 H (6.3-8.2) g/dL Albumin 2.9 L (3.9-5) g/dL - Imaging and Cardiology Echo: pending EKG interpretations - Telemetry EKG Rhythm: Sinus Rhythm Assessment and Plan Altered mental status Bradycardia ?asystolic arrest Leuckopenia Anemia Hyponatremia Hyperkalemia Elevated LFTs ? Hypothyroid/TSH 10.35 Transfer to [facility] for Temporary PPM Recommend Echo repeat BMP
[2021-05-02] MEDS ORDERED: SODIUM CHLORIDE 0.9% 1000 ML 1,000 ML IV ONE (09:58)
[2021-05-02] MEDS ORDERED: NORepinephrine/NS 8 MG-250 ML 8 MG/250 ML INFUS..BTL IV SCH (10:00)
[2021-05-02] MEDS: IPRATROPIUM/ALBUTEROL SULFATE 3 ML AMPUL.NEB IH SCH (11:27)
[2021-05-02] MEDS: BUDESONIDE 0.5 MG/2 ML NEBU IH SCH (11:28)
[2021-05-02] MEDS ORDERED: SODIUM POLYSTYRENE 15 GM/60 ML ORAL LIQD PR ONE (12:03)
[2021-05-02] MEDS ORDERED: INSULIN REGULAR, HUMAN 100 UNITS/1 ML IV ONE (12:03)
[2021-05-02] MEDS ORDERED: DEXTROSE 50% IN WATER (25GM) 50 ML SYRINGE IV ONE (12:04)
[2021-05-02] MEDS ORDERED: CALCIUM GLUCONATE 1,000 MG in SODIUM CHLORIDE 0.9% 100 ML IV ONE (12:04)
[2021-05-02 12:11] LABS: ABG Base Excess -1.4 mmol/L (-2.0-3.0); ABG HCO3 23.5 mmol/L (20.0-26.0); ABG Methemoglobin 0.5 % (0.0-1.5); ABG Oxygen Saturation 99.5 % (95.0-99.0); ABG PCO2 39.9 mm Hg; ABG PH 7.388 pH Units (7.350-7.450)
[2021-05-02 12:15] LABS: ABG PO2 352.4 mm Hg (80.0-90.0)
[2021-05-02] MEDS: ENOXAPARIN 30 MG/0.3 ML INJ SUB-Q SCH (12:37)
[2021-05-02] MEDS: FAMOTIDINE 20 MG/2 ML INJ IV SCH ×2 (12:37→22:09)
[2021-05-02] MEDS ORDERED: SODIUM BICARB 8.4% 50 MEQ/50 ML SYRINGE IV ONE (12:48)
--- NOTE | 2021-05-02 14:59 | Consultation ---
History of Present Illness Consult date: 05/02/21 Requesting physician: АННА GARCIA Reason for consult: other (Bradycardia, acute hypoxemic rsp failure, s/p cardiopulmoanry arrest with ROSC) History of present illness: HISTORY PER MEDICAL RECORDS. PATIENT IS ORALLY INTUBATED 89-year-old female with a past medical history of hyper tension presenting to our facility with altered mental status, decreased responsiveness, bradycardia noted by EMS provider 38 bpm. EMS gave 0.5 mg atropine and heart rate improved to 65 however patient shortly thereafter bradycardia down to 45 bpm. In the emergency department patient was confused she is hard of hearing. During this time. In the emergency department she lost the pulse and went into PEA arrest. ACLS protocol was initiated by ED staff and ROSC was achieved after 1 round of epi. Patient was immediately taken to the [facility] by cardiology for transvenous pacemaker maker placement. A critical care consult has been placed. Patient was seen and examined in the ED Vitals, labs, medications, chart and imaging reviewed. Discussed with respiratory and nursing care staff. She is orally intubated, transvenous pacemaker RIJ Not on any sedation- unresponsive Past History Past Medical History: hypertension, other (No previous records. No family at bedside) Social history: lives with family (Daughter and grandson), smoking (smoked for 40 years, now quit). denies: alcohol abuse Family history: no significant family history Medications and Allergies Allergies Allergy/AdvReac Type Severity Reaction Status Date / Time No Known Allergies Allergy Verified 05/02/21 06:02 Home Medications Medication Instructions Recorded Confirmed Last Taken Type Omeprazole 20 mg PO QDAY #20 gil. 12/12/19 Unknown Rx amLODIPine 10 mg PO DAILY #30 tab 12/12/19 Unknown Rx Active Meds: Active Medications Acetaminophen (Acetaminophen 325 Mg/10.15 Ml Oral Liqd Unit Dose) 650 mg FEEDTUBE Q6H PRN PRN Reason: Pain MILD(1-3)/Fever >100.5/[place] Albuterol/Ipratropium (Ipratropium/Albuterol Sulfate 3 Ml Ampul.Neb) 1 ampul IH Q6HRT [facility] Last Admin: 05/02/21 11:27 Dose: Not Given Budesonide (Budesonide 0.5 Mg/2 Ml Nebu) 0.5 mg IH Q12HRT [facility] Last Admin: 05/02/21 11:28 Dose: Not Given Enoxaparin Sodium (Enoxaparin 30 Mg/0.3 Ml Inj) 30 mg SUB-Q QDAY [facility] Last Admin: 05/02/21 12:37 Dose: 30 mg Famotidine (Famotidine 20 Mg/2 Ml Inj) 10 mg IV BID [facility] Last Admin: 05/02/21 12:37 Dose: 10 mg Dopamine HCl/Dextrose (Dopamine 800 Mg/D5w 250ml) 800 mg in 250 mls @ 4.495 mls/hr IV TITR ONE; Protocol Stop: 05/04/21 14:44 Last Admin: 05/02/21 07:38 Dose: 5 mcg/kg/min, 4.495 mls/hr NORepinephrine/NS 8 MG-250 ML (Norepinephrine/Ns 8 Mg-250 Ml (Double Conc)) 8 mg in 250 mls @ 3.75 mls/hr IV TITRATE [facility]; Protocol Levothyroxine Sodium (Levothyroxine 100 Mcg Inj) 25 mcg IV DAILY@0600 [facility] Morphine Sulfate (Morphine 2 Mg/1 Ml Inj) 2 mg IV Q4H PRN PRN Reason: Pain, Moderate (4-6) Ondansetron HCl (Ondansetron 4 Mg/2 Ml Inj) 4 mg IV Q8H PRN PRN Reason: Nausea And Vomiting Sodium Chloride (Sodium Chloride 0.9% 10 Ml Flush Syringe) 10 ml IV BID [facility] Last Admin: 05/02/21 12:37 Dose: 10 ml Sodium Chloride (Sodium Chloride 0.9% 10 Ml Flush Syringe) 10 ml IV PRN PRN PRN Reason: LINE FLUSH Review of Systems ROS unobtainable: due to endotracheal tube, due to mental status Physical Examination Vital signs: Vital Signs Temp Pulse Resp BP Pulse Ox 88.9 F L 41 L 20 138/71 100 05/02/21 05:23 05/02/21 05:23 05/02/21 05:23 05/02/21 05:23 05/02/21 05:23 General appearance: no acute distress, other (unresponsive) Eyes: non-icteric ENT: oropharynx dry Neck: supple, no lymphadenopathy, other (RIJ transvenous pacemaker) Effort: normal Ascultation: Bilateral: diminished breath sounds, rales Cardiovascular: other (paced) Gastrointestinal: normoactive bowel sounds, soft, other (distended suprapubic area- possibly bladder) Extremities: no edema, pulses normal Musculoskeletal: no deformities unable to assess Results - Laboratory Findings CBC and BMP: 05/02/21 05:16 05/02/21 15:56 ABG ABG pH 7.388 pH Units (7.350-7.450) 05/02/21 11:50 ABG pCO2 39.9 mm Hg 05/02/21 11:50 ABG pO2 352.4 mm Hg (80.0-90.0) H 05/02/21 11:50 ABG O2 Saturation 99.5 % (95.0-99.0) H 05/02/21 11:50 PT/INR, D-dimer PT 15.1 Sec. (12.2-14.9) H 05/02/21 05:16 INR 1.07 (0.87-1.13) 05/02/21 05:16 Abnormal lab findings: Abnormal Labs 05/02/21 05/02/21 05/02/21 05:16 05:16 05:16 WBC 2.9 L RBC 2.36 L Hgb 7.4 L Hct 22.2 L RDW 18.2 H Lymph # (Auto) 0.5 L Seg Neutrophils % 76.5 H PT 15.1 H APTT 41.7 H ABG pO2 ABG O2 Saturation ABG Hemoglobin Sodium 129 L Potassium 6.2 H* Chloride 97.0 L AST ALT Total Creatine Kinase Total Protein Albumin TSH Free T4 05/02/21 05/02/21 05/02/21 05:17 05:53 06:41 WBC RBC Hgb Hct RDW Lymph # (Auto) Seg Neutrophils % PT APTT ABG pO2 ABG O2 Saturation ABG Hemoglobin Sodium Potassium Chloride AST 144 H ALT 115 H Total Creatine Kinase 189 H Total Protein 9.6 H Albumin 2.9 L TSH 10.350 H Free T4 0.61 L 05/02/21 11:50 WBC RBC Hgb Hct RDW Lymph # (Auto) Seg Neutrophils % PT APTT ABG pO2 352.4 H ABG O2 Saturation 99.5 H ABG Hemoglobin 6.9 L Sodium Potassium Chloride AST ALT Total Creatine Kinase Total Protein Albumin TSH Free T4 - Diagnostic Findings Chest x-ray: image reviewed Assessment and Plan Symptomatic bradycardia with subsequent PEA arrest status post ROSC Acute hypoxic respiratory failure Cardiogenic shock Hypothyroidism Acute metabolic encephalopathy Leukopenia Anemia Transaminitis Hypothermia Hyperkalemia -Continue with dopamine -Titrate supplemental oxygen to keep SpO2 88-90% -VAP bundle addressed, aspiration precautions -In view of severity of illness, will recommend that we treat her like a severe hypothyroidism. -ABG, CXR as clinically indicated -remains minimally responsive, no indication for sedation -Prn Fentanyl for analgesia - s/p transvenous pacemaker by cardiology, currently paced 40 bpm -Trend liver enzymes- suspect the transaminitis is secondary to ischemic hepatitis from hypotension in the setting of cardiac arrest -VTE prophylaxis- on Enoxaparin -Address nutritional support in the next 24 hours -Supportive transfusions as clinically indicated, keep HgB>7g/dL -Blood cultures, get urine culture and tracheal aspirate fro culture. -Treat with empiric antibiotics, de-escalate once culture data is available -Get procalcitonin level -Medical management of hyperkalemia Full Code The high probability of a clinically significant, sudden or life threatening deterioration of the [multi] system(s) required my full and direct attention, intervention and personal management. The aggregate critical care time was [45] minutes. This time is in addition to time spent performing reported procedures but includes the following: [x] Data Review and interpretation [x] Patient assessment and monitoring of vital signs [x] Documentation [x] Medication orders and management
[2021-05-02] MEDS: LEVOTHYROXINE 100 MCG INJ IV SCH (15:13)
[2021-05-03] MEDS ORDERED: CEFEPIME 0.5 GM in SODIUM CHLORIDE 0.9% 100 ML IV SCH ×2 (00:15→04:00)
[2021-05-03] MEDS ORDERED: HYDROCORTISONE SOD SUCC 100 MG/2 ML VIAL IV SCH (01:00)
[2021-05-03] MEDS: D5W/0.9% NACL 1,000 ML IV SCH ×2 (03:47→19:31)
[2021-05-03 05:23] LABS: Hematocrit 20.6 % (30.3-42.9); Hemoglobin 6.8 gm/dl (10.1-14.3); Mean Corpuscular HGB Conc 33 % (30-34); Mean Corpuscular Volume 94 fl (79-97); Platelet Count 140 K/mm3 (140-440); Red Cell Distribution Width 18.4 % (13.2-15.2)
[2021-05-03] MEDS: HYDROCORTISONE SOD SUCC 100 MG/2 ML VIAL IV SCH ×4 (05:23→21:04)
[2021-05-03 05:32] LABS: Alanine Aminotransferase 127 units/L (7-56); Albumin 2.6 g/dL (3.9-5); BUN/Creatinine Ratio 21; Blood Urea Nitrogen 25 mg/dL (7-17); Hemolysis Index 1
[2021-05-03 06:45] LABS: Band Neutrophils # (Manual) 0.4 K/mm3; Basophils % (Manual) 0 % (0.0-1.8); Total Cells Counted 100
[2021-05-03 06:46] LABS: Anisocytosis 1+; Hypochromasia 2+; Macrocytosis Few; Ovalocytes Few; Platelet Estimate Consistent w Auto
[2021-05-03] MEDS: FAMOTIDINE 20 MG/2 ML INJ IV SCH ×2 (09:17→21:11)
[2021-05-03] MEDS: ENOXAPARIN 30 MG/0.3 ML INJ SUB-Q SCH (09:17)
[2021-05-03] MEDS: BUDESONIDE 0.5 MG/2 ML NEBU IH SCH ×2 (09:27→14:04)
[2021-05-03] MEDS: IPRATROPIUM/ALBUTEROL SULFATE 3 ML AMPUL.NEB IH SCH ×2 (09:28→14:04)
[2021-05-03 10:33] LABS: ABG Methemoglobin 0.7 % (0.0-1.5); ABG Oxygen Saturation 99.1 % (95.0-99.0); ABG PCO2 34.9 mm Hg; ABG PH 7.438 pH Units (7.350-7.450); ABG PO2 177.2 mm Hg (80.0-90.0)
[2021-05-03] MEDS ORDERED: DEXTROSE 50% IN WATER (25GM) 50 ML SYRINGE IV ONE ×2 (11:13→13:00)
[2021-05-03] MEDS ORDERED: SODIUM BICARB 8.4% 50 MEQ/50 ML SYRINGE IV NR (11:13)
[2021-05-03] MEDS ORDERED: INSULIN REGULAR, HUMAN 100 UNITS/1 ML IV NR (11:13)
[2021-05-03] MEDS ORDERED: DEXTROSE 50% IN WATER (25GM) 50 ML SYRINGE IV PRN ×2 (11:15→21:52)
[2021-05-03] MEDS ORDERED: SODIUM CHLORIDE 0.9% 500 ML 500 ML IV NR (11:19)
--- NOTE | 2021-05-03 11:28 | Progress Note ---
Assessment and Plan Assessment and plan: This is a 89-year-old female with known history of HTN, legally blind, and recent UTI initially admitted for bradycardia and AMS. Patient subsequently PEA arrested with ROSC in the ED was intubated and placed on ventilatory support. Then was taken to [facility] for emergent transvenous pacemaker placement by Cardio. Hospital Course to Date: 05/03: s/p cardiac arrest, remains unresponsive, not on any sedation. +gag/cough and corneal reflex, pending CT head/brain. Patient H&H also dropped this am, 1unit of PRBCs ordered. Hyperkalemia was treated per protoocl, repeat BMP at 16 00. BR was initiated for severe constipation, TF was initiated. 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, given atropine x 1 with transient response - PEA arrested- CPR in ED s/p epi x 1, ROSC achieved - s/p transvenous pacemaker by cardiologym, Pacer current on Back up rate of 30 - SR noted on the monitor, HR in the 70 - Remains on dopamine gtt - Cardiology on consult, appreciated recommendations - ECHO pending - Titrate pressors for a MAP goal above 65 - Continue blood pressure monitor per protocol Hold antihypertensive treatment for now #Acute Hypoxic Respiratory Failure - Coded in the ED, intubated on 05/02 - Vent Setting:PRVC-40%,6,20,350 - This am ABG noted - COVID PCR pending - CCM consulted, appreciate recommendations - VAP bundle addressed - Aspiration precaution HOB above 30 - Daily SBT and SAT trials as tolerated - Daily ABG and CXR - Continue SPO2 monitoring for SPO2 goal above 92% #GI: Severe Constipation #Transaminitis - Abdominal distention noted - KUB with moderate to severe constipation - BR and reglan added - Will initiate eneteral feeding - On PPI - Presented with elevated LFTs, unclear etiology - Will continue to trend LFTs #Hyperkalemia - Treated with insulin, D50, calcium gluconate, & bcarb - repeat BMP this afternoon - Strict intake and output - Monitor and replace electrolytes as needed - Trend BMP #Euthyroid sick syndrome - The TFT pattern is not consistent with myxedema coma - levothyroxine 25 mcg IV - Recheck TFT's in 3-4 days #DVT prophylaxis - Lovenox 30 mg subq daily - SCDs to bilateral lower extremities while in bed Family contact: Cheko Flood (grandson): [phone] - has requested you call him first. His [place] is better and concerned mother might not catch everything. Hope Flood (daughter): [phone] The high probability of a clinically significant, sudden or life threatening deterioration of the [multi] system(s) required my full and direct attention, intervention and personal management. The aggregate critical care time was [60] minutes. This time is in addition to time spent performing reported procedures but includes the following: [x] Data Review and interpretation [x] Patient assessment and monitoring of vital signs [x] Documentation [x] Medication orders and management Disposition Plan: ICU Total Time Spent with Patient (Minutes): 60 History Interval history: Patient seen and examined at the bedside. Intubated, not on any sedation. Remains on dopamine gtt, transvenous pacer noted at back up rate of 30. Patient is current in SR, HR in the 70s. ADALID overnight Hospitalist Physical - Constitutional Vitals: Temp Pulse Resp BP Pulse Ox 98.3 F 70 21 118/50 100 05/03/21 08:58 05/03/21 10:00 05/03/21 08:50 05/03/21 10:00 05/03/21 10:00 General appearance: Present: no acute distress, other (On the vent) - EENT Eyes: Present: irregular pupil - Respiratory Respiratory effort: normal Respiratory: bilateral: rhonchi - Cardiovascular Rhythm: regular Heart Sounds: Present: S1 & S2 - Extremities Extremities: no ischemia, pulses intact, pulses symmetrical Extremity abnormal: edema - Peripheral Assessment Generalized Edema Type: Non-pitting Edema Degree: 1+ Capillary Refill: < 3 seconds Skin Temperature: Warm Peripheral Pulses: within normal limits - Abdominal General gastrointestinal: soft, non-distended, hypoactive bowel sounds - Integumentary Integumentary: Present: warm, dry - Psychiatric Psychiatric: other (FRANK- Unresponsive, not on any sedation) - Neurologic Neurologic: other (FRANK- Unresponsive, not on any sedation) - Allied Health Allied health notes reviewed: nursing HEART Score - HEART Score Troponin: Troponin T < 0.010 ng/mL (0.00-0.029) 05/02/21 05:16 Results - Labs CBC & Chem 7: 05/03/21 04:52 05/03/21 04:52 Labs: Laboratory Last Values WBC 4.5 K/mm3 (4.5-11.0) 05/03/21 04:52 RBC 2.20 M/mm3 (3.65-5.03) L 05/03/21 04:52 Hgb 6.8 gm/dl (10.1-14.3) L 05/03/21 04:52 Hct 20.6 % (30.3-42.9) L 05/03/21 04:52 MCV 94 fl (79-97) 05/03/21 04:52 MCH 31 pg (28-32) 05/03/21 04:52 MCHC 33 % (30-34) 05/03/21 04:52 RDW 18.4 % (13.2-15.2) H 05/03/21 04:52 Plt Count 140 K/mm3 (140-440) 05/03/21 04:52 Lymph % (Auto) 17.5 % (13.4-35.0) 05/02/21 05:16 Daniels % (Auto) 4.4 % (0.0-7.3) 05/02/21 05:16 Eos % (Auto) 1.3 % (0.0-4.3) 05/02/21 05:16 Baso % (Auto) 0.3 % (0.0-1.8) 05/02/21 05:16 Lymph # (Auto) 0.5 K/mm3 (1.2-5.4) L 05/02/21 05:16 Daniels # (Auto) 0.1 K/mm3 (0.0-0.8) 05/02/21 05:16 Eos # (Auto) 0.0 K/mm3 (0.0-0.4) 05/02/21 05:16 Baso # (Auto) 0.0 K/mm3 (0.0-0.1) 05/02/21 05:16 Add Manual Diff Complete 05/03/21 04:52 Total Counted 100 05/03/21 04:52 Seg Neutrophils % Electroplater 05/03/21 04:52 Seg Neuts % (Manual) 86.0 % (40.0-70.0) H 05/03/21 04:52 Band Neutrophils % 8.0 % 05/03/21 04:52 Lymphocytes % (Manual) 3.0 % (13.4-35.0) L 05/03/21 04:52 Reactive Lymphs % (Man) 0 % 05/03/21 04:52 Monocytes % (Manual) 2.0 % (0.0-7.3) 05/03/21 04:52 Eosinophils % (Manual) 1.0 % (0.0-4.3) 05/03/21 04:52 Basophils % (Manual) 0 % (0.0-1.8) 05/03/21 04:52 Metamyelocytes % 0 % 05/03/21 04:52 Myelocytes % 0 % 05/03/21 04:52 Promyelocytes % 0 % 05/03/21 04:52 Blast Cells % 0 % 05/03/21 04:52 Nucleated RBC % Not Reportable 05/03/21 04:52 Seg Neutrophils # 2.2 K/mm3 (1.8-7.7) 05/02/21 05:16 Seg Neutrophils # Man 3.9 K/mm3 (1.8-7.7) 05/03/21 04:52 Band Neutrophils # 0.4 K/mm3 05/03/21 04:52 Lymphocytes # (Manual) 0.1 K/mm3 (1.2-5.4) L 05/03/21 04:52 Abs React Lymphs (Man) 0.0 K/mm3 05/03/21 04:52 Monocytes # (Manual) 0.1 K/mm3 (0.0-0.8) 05/03/21 04:52 Eosinophils # (Manual) 0.0 K/mm3 (0.0-0.4) 05/03/21 04:52 Basophils # (Manual) 0.0 K/mm3 (0.0-0.1) 05/03/21 04:52 Metamyelocytes # 0.0 K/mm3 05/03/21 04:52 Myelocytes # 0.0 K/mm3 05/03/21 04:52 Promyelocytes # 0.0 K/mm3 05/03/21 04:52 Blast Cells # 0.0 K/mm3 05/03/21 04:52 WBC Morphology Not Reportable 05/03/21 04:52 Hypersegmented Neuts Not Reportable 05/03/21 04:52 Hyposegmented Neuts Not Reportable 05/03/21 04:52 Hypogranular Neuts Not Reportable 05/03/21 04:52 Smudge Cells Not Reportable 05/03/21 04:52 Toxic Granulation Not Reportable 05/03/21 04:52 Toxic Vacuolation Not Reportable 05/03/21 04:52 Dohle Bodies Not Reportable 05/03/21 04:52 Pelger-Huet Anomaly Not Reportable 05/03/21 04:52 Shanti Rods Not Reportable 05/03/21 04:52 Platelet Estimate Consistent w auto 05/03/21 04:52 Clumped Platelets Not Reportable 05/03/21 04:52 Plt Clumps, EDTA Not Reportable 05/03/21 04:52 Large Platelets Not Reportable 05/03/21 04:52 Giant Platelets Not Reportable 05/03/21 04:52 Platelet Satelliting Not Reportable 05/03/21 04:52 Plt Morphology Comment Not Reportable 05/03/21 04:52 RBC Morphology Not Reportable 05/03/21 04:52 Dimorphic RBCs Not Reportable 05/03/21 04:52 Polychromasia Not Reportable 05/03/21 04:52 Hypochromasia 2+ 05/03/21 04:52 Poikilocytosis Not Reportable 05/03/21 04:52 Anisocytosis 1+ 05/03/21 04:52 Microcytosis Not Reportable 05/03/21 04:52 Macrocytosis Few 05/03/21 04:52 Spherocytes Not Reportable 05/03/21 04:52 Pappenheimer Bodies Not Reportable 05/03/21 04:52 Sickle Cells Not Reportable 05/03/21 04:52 Target Cells Not Reportable 05/03/21 04:52 Tear Drop Cells Not Reportable 05/03/21 04:52 Ovalocytes Few 05/03/21 04:52 Helmet Cells Not Reportable 05/03/21 04:52 [place] Bodies Not Reportable 05/03/21 04:52 [place] Rings Not Reportable 05/03/21 04:52 Jossue Cells Not Reportable 05/03/21 04:52 Bite Cells Not Reportable 05/03/21 04:52 Crenated Cell Not Reportable 05/03/21 04:52 Elliptocytes Not Reportable 05/03/21 04:52 Acanthocytes (Spur) Not Reportable 05/03/21 04:52 Rouleaux Not Reportable 05/03/21 04:52 Hemoglobin C Crystals Not Reportable 05/03/21 04:52 Schistocytes Not Reportable 05/03/21 04:52 Malaria parasites Not Reportable 05/03/21 04:52 Anatoly Bodies Not Reportable 05/03/21 04:52 Hem Pathologist Commnt No 05/03/21 04:52 PT 15.1 Sec. (12.2-14.9) H 05/02/21 05:16 INR 1.07 (0.87-1.13) 05/02/21 05:16 APTT 41.7 Sec. (24.2-36.6) H 05/02/21 05:16 ABG pH 7.438 pH Units (7.350-7.450) 05/03/21 10:10 ABG pCO2 34.9 mm Hg 05/03/21 10:10 ABG pO2 177.2 mm Hg (80.0-90.0) H 05/03/21 10:10 ABG HCO3 23.0 mmol/L (20.0-26.0) 05/03/21 10:10 ABG O2 Saturation 99.1 % (95.0-99.0) H 05/03/21 10:10 ABG O2 Content 10.1 (0.0-44) 05/03/21 10:10 ABG Base Excess -1.0 mmol/L (-2.0-3.0) 05/03/21 10:10 ABG Hemoglobin 7.1 gm/dl (12.0-16.0) L 05/03/21 10:10 ABG Carboxyhemoglobin 1.2 % (0.0-5.0) 05/03/21 10:10 ABG Methemoglobin 0.7 % (0.0-1.5) 05/03/21 10:10 Oxyhemoglobin 97.3 % (95.0-99.0) 05/03/21 10:10 FiO2 40 % 05/03/21 10:10 Sodium 129 mmol/L (137-145) L 05/03/21 04:52 Potassium 6.2 mmol/L (3.6-5.0) H* 05/03/21 04:52 Chloride 97.0 mmol/L (98-107) L 05/03/21 04:52 Carbon Dioxide 22 mmol/L (22-30) 05/03/21 04:52 Anion Gap 16 mmol/L 05/03/21 04:52 BUN 25 mg/dL (7-17) H 05/03/21 04:52 Creatinine 1.2 mg/dL (0.6-1.2) D 05/03/21 04:52 Estimated GFR 51 ml/min 05/03/21 04:52 BUN/Creatinine Ratio 21 % 05/03/21 04:52 Glucose 85 mg/dL (65-100) 05/03/21 04:52 POC Glucose 106 mg/dL (70-105) H 05/03/21 10:23 Lactic Acid 0.80 mmol/L (0.7-2.0) 05/02/21 05:53 Calcium 9.0 mg/dL (8.4-10.2) 05/03/21 04:52 Total Bilirubin < 0.20 mg/dL (0.1-1.2) 05/03/21 04:52 Direct Bilirubin < 0.2 mg/dL (0-0.2) 05/02/21 05:17 Indirect Bilirubin 0.0 mg/dL 05/02/21 05:17 AST 152 units/L (5-40) H 05/03/21 04:52 ALT 127 units/L (7-56) H 05/03/21 04:52 Alkaline Phosphatase 85 units/L (35-129) 05/03/21 04:52 Total Creatine Kinase 189 units/L (30-135) H 05/02/21 05:53 Troponin T < 0.010 ng/mL (0.00-0.029) 05/02/21 05:16 NT-Pro-B Natriuret Pep 341.7 pg/mL (0-900) 05/02/21 05:17 Total Protein 8.6 g/dL (6.3-8.2) H 05/03/21 04:52 Albumin 2.6 g/dL (3.9-5) L 05/03/21 04:52 Albumin/Globulin Ratio 0.4 % 05/03/21 04:52 Procalcitonin 0.74 ng/mL (<0.15) 05/03/21 04:52 TSH 10.350 mlU/mL (0.270-4.200) H 05/02/21 06:41 Free T4 0.61 ng/dL (0.76-1.46) L 05/02/21 06:41 Microbiology: Microbiology 05/02/21 16:04 Peripheral/Venous Blood Culture - Preliminary Culture in Progress 05/02/21 15:56 Peripheral/Venous Blood Culture - Preliminary Culture in Progress Peoples/IV: Voiding Method Indwelling Catheter Active Medications - Current Medications Current Medications: Generic Name Dose Route Start Last Admin Trade Name Freq PRN Reason Stop Dose Admin Acetaminophen 650 mg 05/02/21 08:59 Acetaminophen 325 Mg/10.15 Ml Oral Liqd Unit Dose FEEDTUBE Q6H PRN Pain MILD(1-3)/Fever >100.5/[place] Albuterol/Ipratropium 1 ampul 05/02/21 10:00 05/03/21 09:28 Ipratropium/Albuterol Sulfate 3 Ml Ampul.Neb IH 1 ampul Q6HRT JHON Administration Budesonide 0.5 mg 05/02/21 10:00 05/03/21 09:27 Budesonide 0.5 Mg/2 Ml Nebu IH 0.5 mg Q12HRT JHON Administration Dextrose 0 ml 05/03/21 11:20 Dextrose 10% *Hypoglycemia IV PRN PRN Hypoglycemia Docusate Sodium 100 mg 05/03/21 12:00 Docusate Sodium 100 Mg/10 Ml Oral Liqd PO BID JHON Enoxaparin Sodium 30 mg 05/02/21 10:00 05/03/21 09:17 Enoxaparin 30 Mg/0.3 Ml Inj SUB-Q 30 mg QDAY JHON Administration Famotidine 10 mg 05/02/21 10:00 05/03/21 09:17 Famotidine 20 Mg/2 Ml Inj IV 10 mg BID JHON Administration Fentanyl 50 mcg 05/03/21 11:30 Fentanyl 100 Mcg/2 Ml Inj IV Q10MIN PRN ANALGESIA Hydrocortisone Sodium Succinate 50 mg 05/03/21 04:00 05/03/21 09:17 Hydrocortisone Sod Succ 100 Mg/2 Ml Vial IV 50 mg Q6H JHON Administration Dopamine HCl/Dextrose 800 mg in 250 mls @ 4.495 mls/hr 05/02/21 07:07 04/14 05/04 11:07 Dopamine 800 Mg/D5w 250ml IV 05/04/21 14:44 2 mcg/kg/min TITR ONE 1.798 mls/hr Titration Protocol 5 MCG/KG/MIN NORepinephrine/NS 8 MG-250 ML 8 mg in 250 mls @ 3.75 mls/hr 05/02/21 10:00 Norepinephrine/Ns 8 Mg-250 Ml (Double Conc) IV TITRATE JHON Protocol 2 MCG/MIN Dextrose/Sodium Chloride 1,000 mls @ 75 mls/hr 05/03/21 03:00 05/03/21 03:47 D5ns IV 75 mls/hr DIRECT JHON Administration Cefepime HCl 1 gm in 100 mls @ 200 mls/hr 05/03/21 22:00 Cefepime/Ns 1 Gm/100 Ml IV Q24H JHON Protocol Fentanyl Citrate 2,000 mcg in 100 mls @ 2.397 mls/hr 05/03/21 12:00 Fentanyl Drip Premix IV TITR JHON Protocol 1 MCG/KG/HR Calcium Gluconate 2,000 mg/ 120 mls @ 660 mls/hr 05/03/21 12:00 Sodium Chloride IV 05/03/21 12:10 ONCE ONE Sodium Chloride 500 mls @ 0 mls/hr 05/03/21 11:19 Nacl 0.9% 500 Ml IV 05/03/21 11:20 ONCE ONE As Directed Insulin Human Regular 10 units 05/03/21 11:13 Insulin Regular, Human 100 Units/1 Ml IV 05/03/21 13:00 ONCE NR Levothyroxine Sodium 25 mcg 05/02/21 06:00 05/02/21 15:13 Levothyroxine 100 Mcg Inj IV 25 mcg DAILY@0600 JHON Administration Metoclopramide HCl 5 mg 05/03/21 14:00 Metoclopramide 10 Mg/2 Ml Inj IV 05/04/21 14:01 Q8HR JHON Morphine Sulfate 2 mg 05/02/21 08:59 Morphine 2 Mg/1 Ml Inj IV Q4H PRN Pain, Moderate (4-6) Ondansetron HCl 4 mg 05/02/21 08:59 Ondansetron 4 Mg/2 Ml Inj IV Q8H PRN Nausea And Vomiting Polyethylene Glycol 17 gm 05/03/21 12:00 Polyethylene Glycol 3350 17 Gm Powder PO QDAY JHON Senna 17.6 mg 05/03/21 12:00 Sennosides Oral Liqd 8.8 Mg/5 Ml Oral Liqd PO Q12HR JHON Sodium Bicarbonate 50 meq 05/03/21 11:13 Sodium Bicarb 8.4% 50 Meq/50 Ml Syringe IV 05/03/21 13:00 ONCE NR Sodium Chloride 10 ml 05/02/21 10:00 05/03/21 09:18 Sodium Chloride 0.9% 10 Ml Flush Syringe IV 10 ml BID JHON Administration Sodium Chloride 10 ml 05/02/21 08:59 Sodium Chloride 0.9% 10 Ml Flush Syringe IV PRN PRN LINE FLUSH
--- NOTE | 2021-05-03 11:32 | XRay Report ---
ABDOMEN 1 VIEW(S) INDICATION / CLINICAL INFORMATION: OGT placement. COMPARISON: None available. FINDINGS: TUBES / LINES: The nasogastric tube is in good position terminating in the distal stomach. BOWEL GAS PATTERN: There is a large amount of fecal matter throughout the colon. No dilated bowel loo ps are appreciated. FREE AIR / EXTRALUMINAL GAS: None seen. ADDITIONAL FINDINGS: No significant additional findings. IMPRESSION: Good placement of the nasogastric tube. Moderate to severe constipation. Signer Name: Medardo Cobos Jr, MD Signed: 05/03/2021 11:27 AM Workstation Name: [id number]
--- NOTE | 2021-05-03 11:58 | XRay Report ---
CHEST - 1 VIEW INDICATION: Pacemaker placement COMPARISON: Yesterday FINDINGS: SUPPORT DEVICES: An NG tube has been placed with tip below the [id number] in the region of the up per abdomen. Otherwise stable support device positioning. HEART: Stable cardiomediastinal silhouette. LUNGS/PLEURA: Mild central predominant interstitial prominence again noted with no consolidation or significant effusion. ADDITIONAL FINDINGS: None. IMPRESSION: NGT as above. Otherwise largely unchanged exam. Signer Name: Ziyad Best MD Signed: 05/03/2021 11:53 AM Workstation Name: [id number]
[2021-05-03] MEDS ORDERED: CALCIUM GLUCONATE 2,000 MG in SODIUM CHLORIDE 0.9% 100 ML IV ONE (12:00)
[2021-05-03] MEDS: fentaNYL DRIP Premix 2,000 MCG/100 ML BAG IV SCH (12:36)
[2021-05-03] MEDS: LEVOTHYROXINE 100 MCG INJ IV SCH (12:41)
[2021-05-03] MEDS: POLYETHYLENE GLYCOL 3350 17 GM POWDER PO SCH (12:42)
[2021-05-03] MEDS: SENNOSIDES ORAL LIQD 8.8 MG/5 ML ORAL LIQD PO SCH ×2 (12:42→21:03)
[2021-05-03] MEDS ORDERED: CALC GLUCONATE 1GM/NS 100 ML 1 GM/100 ML BAG IV ONE ×2 (13:00→13:20)
--- NOTE | 2021-05-03 13:02 | Progress Note ---
Assessment and Plan Symptomatic bradycardia with subsequent PEA arrest status post ROSC Acute hypoxic respiratory failure Cardiogenic shock Hypothyroidism Acute metabolic encephalopathy Leukopenia Anemia Transaminitis Hypothermia Hyperkalemia Transfuse 1 unit PRBC for Hemoglobin<7 Medical management of hyperkalemia She is being treated for hypothyroidism which can also cause constipation however, if it does not improve, plan to get GI involved. She has ongoing anemia with constipation. Continue to titrate off dopamine Continue to monitor mental status she is slowly improving Follow cultures and deescalate based on culture data. Procalcitonin still pending Blood and tracheal aspirate cultures from 05/02- NGTD -Continue with dopamine -Titrate supplemental oxygen to keep SpO2 88-90% -VAP bundle addressed, aspiration precautions -ABG, CXR as clinically indicated -Prn Fentanyl for analgesia - s/p transvenous pacemaker by cardiology, currently paced 40 bpm -Continue to Trend liver enzymes -VTE prophylaxis- on Enoxaparin -Supportive transfusions as clinically indicated, keep HgB>7g/dL -Treat with empiric antibiotics, de-escalate once culture data is available Full Code The high probability of a clinically significant, sudden or life threatening deterioration of the [multi] system(s) required my full and direct attention, intervention and personal management. The aggregate critical care time was [35] minutes. This time is in addition to time spent performing reported procedures but includes the following: [x] Data Review and interpretation [x] Patient assessment and monitoring of vital signs [x] Documentation [x] Medication orders and management Subjective Date of service: 05/03/21 Interval history: Follow up :Symptomatic bradycardia with subsequent PEA arrest status post ROSC; Acute hypoxic respiratory failure on MVS; Cardiogenic shock; Hypothyroidism; Acute metabolic encephalopathy Seen and examined with RN at the bedside. Vitals, labs, medications, chart and imaging reviewed. No adverse events reported. Remains on dopamine but low dose Remains on MVS, minimal settings Discussed with respiratory care. Objective Vital Signs - 12hr 05/03/21 05/03/21 05/03/21 01:10 01:20 01:30 Temperature Pulse Rate 71 72 75 Pulse Rate [ Anterior Bilateral Throughout] Pulse Rate [ From Monitor] Respiratory Rate Respiratory Rate [Anterior Bilateral Throughout] Blood Pressure 104/52 104/52 104/52 O2 Sat by Pulse 100 100 100 Oximetry 05/03/21 05/03/21 05/03/21 01:40 01:50 02:00 Temperature Pulse Rate 74 72 76 Pulse Rate [ Anterior Bilateral Throughout] Pulse Rate [ From Monitor] Respiratory Rate Respiratory Rate [Anterior Bilateral Throughout] Blood Pressure 104/52 104/52 104/52 O2 Sat by Pulse 100 100 100 Oximetry 05/03/21 05/03/21 05/03/21 02:10 02:20 02:30 Temperature Pulse Rate 75 76 71 Pulse Rate [ Anterior Bilateral Throughout] Pulse Rate [ From Monitor] Respiratory Rate Respiratory Rate [Anterior Bilateral Throughout] Blood Pressure 100/44 100/44 100/44 O2 Sat by Pulse 100 100 100 Oximetry 05/03/21 05/03/21 05/03/21 02:40 02:50 03:00 Temperature Pulse Rate 74 74 85 Pulse Rate [ Anterior Bilateral Throughout] Pulse Rate [ From Monitor] Respiratory Rate Respiratory Rate [Anterior Bilateral Throughout] Blood Pressure 100/44 100/44 100/44 O2 Sat by Pulse 100 100 100 Oximetry 05/03/21 05/03/21 05/03/21 03:11 03:17 03:21 Temperature Pulse Rate 75 77 79 Pulse Rate [ Anterior Bilateral Throughout] Pulse Rate [ From Monitor] Respiratory Rate Respiratory Rate [Anterior Bilateral Throughout] Blood Pressure 100/44 115/48 115/48 O2 Sat by Pulse 100 100 100 Oximetry 05/03/21 05/03/21 05/03/21 03:31 03:41 03:45 Temperature 98.4 F Pulse Rate 77 79 Pulse Rate [ Anterior Bilateral Throughout] Pulse Rate [ From Monitor] Respiratory Rate Respiratory Rate [Anterior Bilateral Throughout] Blood Pressure 115/48 115/48 O2 Sat by Pulse 100 100 Oximetry 05/03/21 05/03/21 05/03/21 03:51 04:00 04:11 Temperature Pulse Rate 79 79 81 Pulse Rate [ Anterior Bilateral Throughout] Pulse Rate [ From Monitor] Respiratory Rate Respiratory Rate [Anterior Bilateral Throughout] Blood Pressure 115/48 106/46 106/46 O2 Sat by Pulse 100 100 100 Oximetry 05/03/21 05/03/21 05/03/21 04:21 04:31 04:41 Temperature Pulse Rate 76 80 77 Pulse Rate [ Anterior Bilateral Throughout] Pulse Rate [ From Monitor] Respiratory Rate Respiratory Rate [Anterior Bilateral Throughout] Blood Pressure 106/46 106/46 106/46 O2 Sat by Pulse 100 100 100 Oximetry 05/03/21 05/03/21 05/03/21 04:51 05:00 05:11 Temperature Pulse Rate 75 75 80 Pulse Rate [ Anterior Bilateral Throughout] Pulse Rate [ From Monitor] Respiratory Rate Respiratory Rate [Anterior Bilateral Throughout] Blood Pressure 106/46 117/48 109/54 O2 Sat by Pulse 100 100 100 Oximetry 05/03/21 05/03/21 05/03/21 05:21 05:31 05:41 Temperature Pulse Rate 84 77 78 Pulse Rate [ Anterior Bilateral Throughout] Pulse Rate [ From Monitor] Respiratory Rate Respiratory Rate [Anterior Bilateral Throughout] Blood Pressure 109/54 109/54 109/54 O2 Sat by Pulse 100 100 100 Oximetry 05/03/21 05/03/21 05/03/21 05:51 06:00 06:11 Temperature Pulse Rate 81 76 78 Pulse Rate [ Anterior Bilateral Throughout] Pulse Rate [ From Monitor] Respiratory Rate Respiratory Rate [Anterior Bilateral Throughout] Blood Pressure 109/54 110/51 110/51 O2 Sat by Pulse 100 100 100 Oximetry 05/03/21 05/03/21 05/03/21 06:21 06:31 06:41 Temperature Pulse Rate 79 78 81 Pulse Rate [ Anterior Bilateral Throughout] Pulse Rate [ From Monitor] Respiratory Rate Respiratory Rate [Anterior Bilateral Throughout] Blood Pressure 110/51 110/51 110/51 O2 Sat by Pulse 100 100 100 Oximetry 05/03/21 05/03/21 05/03/21 06:51 07:00 07:11 Temperature Pulse Rate 80 80 77 Pulse Rate [ Anterior Bilateral Throughout] Pulse Rate [ From Monitor] Respiratory Rate Respiratory Rate [Anterior Bilateral Throughout] Blood Pressure 110/51 112/53 112/53 O2 Sat by Pulse 100 100 100 Oximetry 05/03/21 05/03/21 05/03/21 07:21 07:31 07:41 Temperature Pulse Rate 79 75 78 Pulse Rate [ Anterior Bilateral Throughout] Pulse Rate [ From Monitor] Respiratory Rate Respiratory Rate [Anterior Bilateral Throughout] Blood Pressure 112/53 112/53 112/53 O2 Sat by Pulse 100 100 100 Oximetry 05/03/21 05/03/21 05/03/21 07:47 07:51 08:00 Temperature Pulse Rate 76 72 75 Pulse Rate [ Anterior Bilateral Throughout] Pulse Rate [ 76 From Monitor] Respiratory 21 Rate Respiratory Rate [Anterior Bilateral Throughout] Blood Pressure 112/53 106/54 O2 Sat by Pulse 100 100 Oximetry 05/03/21 05/03/21 05/03/21 08:11 08:21 08:31 Temperature Pulse Rate 84 81 73 Pulse Rate [ Anterior Bilateral Throughout] Pulse Rate [ From Monitor] Respiratory Rate Respiratory Rate [Anterior Bilateral Throughout] Blood Pressure 106/54 106/54 106/54 O2 Sat by Pulse 100 100 100 Oximetry 05/03/21 05/03/21 05/03/21 08:40 08:50 08:51 Temperature Pulse Rate 72 78 Pulse Rate [ 90 Anterior Bilateral Throughout] Pulse Rate [ From Monitor] Respiratory Rate Respiratory 21 Rate [Anterior Bilateral Throughout] Blood Pressure 106/54 112/53 O2 Sat by Pulse 100 100 Oximetry 05/03/21 05/03/21 05/03/21 08:58 09:00 09:11 Temperature 98.3 F Pulse Rate 72 75 Pulse Rate [ Anterior Bilateral Throughout] Pulse Rate [ From Monitor] Respiratory Rate Respiratory Rate [Anterior Bilateral Throughout] Blood Pressure 108/51 108/51 O2 Sat by Pulse 100 100 Oximetry 05/03/21 05/03/21 05/03/21 09:16 09:21 09:31 Temperature Pulse Rate 70 78 68 Pulse Rate [ Anterior Bilateral Throughout] Pulse Rate [ From Monitor] Respiratory Rate Respiratory Rate [Anterior Bilateral Throughout] Blood Pressure 108/51 108/51 108/51 O2 Sat by Pulse 100 100 100 Oximetry 05/03/21 05/03/21 05/03/21 09:41 09:51 10:00 Temperature Pulse Rate 73 78 70 Pulse Rate [ Anterior Bilateral Throughout] Pulse Rate [ From Monitor] Respiratory Rate Respiratory Rate [Anterior Bilateral Throughout] Blood Pressure 108/51 108/51 118/50 O2 Sat by Pulse 100 100 100 Oximetry 05/03/21 05/03/21 05/03/21 10:11 10:21 10:31 Temperature Pulse Rate 83 91 H 75 Pulse Rate [ Anterior Bilateral Throughout] Pulse Rate [ From Monitor] Respiratory Rate Respiratory Rate [Anterior Bilateral Throughout] Blood Pressure 118/50 118/50 118/50 O2 Sat by Pulse 100 100 100 Oximetry 05/03/21 05/03/21 05/03/21 10:41 10:51 11:01 Temperature Pulse Rate 79 72 79 Pulse Rate [ Anterior Bilateral Throughout] Pulse Rate [ From Monitor] Respiratory Rate Respiratory Rate [Anterior Bilateral Throughout] Blood Pressure 118/50 118/50 113/51 O2 Sat by Pulse 97 84 Oximetry 05/03/21 05/03/21 05/03/21 11:11 11:21 11:31 Temperature Pulse Rate 72 78 72 Pulse Rate [ Anterior Bilateral Throughout] Pulse Rate [ From Monitor] Respiratory Rate Respiratory Rate [Anterior Bilateral Throughout] Blood Pressure 113/51 113/51 113/51 O2 Sat by Pulse 98 95 99 Oximetry 05/03/21 05/03/21 05/03/21 11:36 11:37 12:19 Temperature Pulse Rate 76 73 Pulse Rate [ Anterior Bilateral Throughout] Pulse Rate [ 76 From Monitor] Respiratory 20 Rate Respiratory Rate [Anterior Bilateral Throughout] Blood Pressure 112/53 O2 Sat by Pulse 100 100 Oximetry Constitutional: no acute distress, other (Elderly AAW) Eyes: non-icteric ENT: oropharynx dry Neck: supple, no lymphadenopathy, other (RIJ transvenous pacemaker) Effort: normal Ascultation: Bilateral: diminished breath sounds, rales Cardiovascular: other (paced) Gastrointestinal: normoactive bowel sounds, soft, other (distended ) Extremities: no edema, pulses normal Neurologic: pupils equal and round, other CBC and BMP: 05/05/21 04:35 05/06/21 04:56 ABG, PT/INR, D-dimer: ABG ABG pH 7.438 pH Units (7.350-7.450) 05/03/21 10:10 ABG pCO2 34.9 mm Hg 05/03/21 10:10 ABG pO2 177.2 mm Hg (80.0-90.0) H 05/03/21 10:10 ABG O2 Saturation 99.1 % (95.0-99.0) H 05/03/21 10:10 PT/INR, D-dimer PT 15.1 Sec. (12.2-14.9) H 05/02/21 05:16 INR 1.07 (0.87-1.13) 05/02/21 05:16 Abnormal lab findings: Abnormal Labs 05/02/21 05/02/21 05/02/21 05:16 05:16 05:16 WBC 2.9 L RBC 2.36 L Hgb 7.4 L Hct 22.2 L RDW 18.2 H Lymph # (Auto) 0.5 L Seg Neutrophils % 76.5 H Seg Neuts % (Manual) Lymphocytes % (Manual) Lymphocytes # (Manual) PT 15.1 H APTT 41.7 H ABG pO2 ABG O2 Saturation ABG Hemoglobin Sodium 129 L Potassium 6.2 H* Chloride 97.0 L BUN POC Glucose AST ALT Total Creatine Kinase Total Protein Albumin TSH Free T4 05/02/21 05/02/21 05/02/21 05:17 05:53 06:41 WBC RBC Hgb Hct RDW Lymph # (Auto) Seg Neutrophils % Seg Neuts % (Manual) Lymphocytes % (Manual) Lymphocytes # (Manual) PT APTT ABG pO2 ABG O2 Saturation ABG Hemoglobin Sodium Potassium Chloride BUN POC Glucose AST 144 H ALT 115 H Total Creatine Kinase 189 H Total Protein 9.6 H Albumin 2.9 L TSH 10.350 H Free T4 0.61 L 05/02/21 05/02/21 05/03/21 11:50 15:56 04:52 WBC RBC 2.20 L Hgb 6.8 L Hct 20.6 L RDW 18.4 H Lymph # (Auto) Seg Neutrophils % Seg Neuts % (Manual) 86.0 H Lymphocytes % (Manual) 3.0 L Lymphocytes # (Manual) 0.1 L PT APTT ABG pO2 352.4 H ABG O2 Saturation 99.5 H ABG Hemoglobin 6.9 L Sodium Potassium 5.8 H Chloride BUN POC Glucose AST ALT Total Creatine Kinase Total Protein Albumin TSH Free T4 05/03/21 05/03/21 05/03/21 04:52 10:10 10:23 WBC RBC Hgb Hct RDW Lymph # (Auto) Seg Neutrophils % Seg Neuts % (Manual) Lymphocytes % (Manual) Lymphocytes # (Manual) PT APTT ABG pO2 177.2 H ABG O2 Saturation 99.1 H ABG Hemoglobin 7.1 L Sodium 129 L Potassium 6.2 H* Chloride 97.0 L BUN 25 H POC Glucose 106 H AST 152 H ALT 127 H Total Creatine Kinase Total Protein 8.6 H Albumin 2.6 L TSH Free T4 Chest x-ray: image reviewed Allied health notes reviewed: RT
[2021-05-03] MEDS: METOCLOPRAMIDE 10 MG/2 ML INJ IV SCH ×2 (13:14→21:03)
--- NOTE | 2021-05-03 14:25 | Electrophysiological Studies ---
DATE OF SERVICE: 05/02/2021 PREPROCEDURE DIAGNOSIS: Asystolic. PROCEDURES PERFORMED: 1. Transvenous temporary pacemaker. 2. Fluoroscopy. DESCRIPTION OF PROCEDURE: The patient was brought to the catheterization laboratory. The patient was prepped and draped in the usual sterile fashion. Venous access was obtained via the right internal jugular. A 6-Swedish sheath was advanced over a wire and a 5-Swedish balloon-tipped pacing wire was advanced to the right ventricular apex under fluoroscopy. The pacing threshold was adequate. The area was dressed with sterile gauze and covered with a plastic dressing. COMPLICATIONS: None. ESTIMATED BLOOD LOSS: 10 mL. ASSESSMENT: Successful transvenous temporary pacemaker placement. PLAN: Admit to the ICU. Recommend echocardiogram. TID: [id number] RECEIPT: [id number] MMW/MARIA DOLORES
[2021-05-03] MEDS: DOCUSATE SODIUM 100 MG/10 ML ORAL LIQD PO SCH ×2 (14:32→21:03)
--- NOTE | 2021-05-03 15:44 | Progress Note ---
Assessment and Plan 89-year-old female with a past medical history of hyper tension presenting to our facility with altered mental status, decreased responsiveness, bradycardia brought to the ED who 1 and then went to PEA arrest. ACLS protocol initiated with ROSC achieved. Patient taken to [facility] for temporary PPM Altered mental status Bradycardia ?asystolic arrest Leuckopenia Anemia Hyponatremia Hyperkalemia Elevated LFTs ? Hypothyroid/TSH 10.35 COVID-19 Echo 05/02/2021-EF 65 to 70%. Severe concentric LVH. Mild diastolic dysfunction is present impaired relaxation pattern. Moderate mitral regurgitation. Right ventricle is dilated. Right ventricular systolic function is normal device lead is present in right ventricle. Right atrium is dilated. No pericardial effusion Plan: Repeat EKG pending Patient tested positive for COVID-19 Patient previously trending sinus 70s this a.m and dopamine was weaned down. Received page from RN that this afternoon patient heart rate dropped into 30s and became hemodynamically unstable with systolic blood pressure in the 80s Increased patient's temporary PPM rate to 60 Dopamine rate increase. Patient blood pressure improved Patient seen in conjunction with Dr. Enriquez who agrees with this plan of care 30 minutes of critical care time spent in care and coordination of patient - Patient Problems (1) Symptomatic bradycardia Current Visit: Yes Status: Acute Subjective Date of service: 05/03/21 Principal diagnosis: Symptomatic bradycardia Interval history: Patient remains intubated and sedated Patient was trending sinus 70s throughout most of the day Patient became bradycardic later in the afternoon to heart rate of 30s Objective Vital Signs Temp Pulse Pulse Pulse Resp Resp BP 05/03/21 15:01 74 112/73 05/03/21 14:51 83 113/71 05/03/21 14:41 76 113/71 05/03/21 14:31 71 113/71 05/03/21 14:21 61 83/43 05/03/21 14:10 51 L 83/41 05/03/21 14:00 41 L 76/36 05/03/21 13:51 52 L 113/47 05/03/21 13:41 59 L 113/47 05/03/21 13:31 65 113/47 05/03/21 13:21 69 113/47 05/03/21 13:11 80 113/47 05/03/21 13:00 73 113/47 05/03/21 12:51 74 112/53 05/03/21 12:41 70 112/53 05/03/21 12:31 76 112/53 05/03/21 12:21 73 112/53 05/03/21 12:19 73 112/53 05/03/21 12:11 77 112/53 05/03/21 12:00 77 112/53 05/03/21 11:51 72 113/51 05/03/21 11:41 75 113/51 05/03/21 11:37 76 20 05/03/21 11:36 76 05/03/21 11:31 72 113/51 05/03/21 11:21 78 113/51 05/03/21 11:11 72 113/51 05/03/21 11:01 79 113/51 05/03/21 10:51 72 118/50 05/03/21 10:41 79 118/50 05/03/21 10:31 75 118/50 05/03/21 10:21 91 H 118/50 05/03/21 10:11 83 118/50 05/03/21 10:00 70 118/50 05/03/21 09:51 78 108/51 05/03/21 09:41 73 108/51 05/03/21 09:31 68 108/51 05/03/21 09:21 78 108/51 05/03/21 09:16 70 108/51 05/03/21 09:11 75 108/51 05/03/21 09:00 72 108/51 05/03/21 08:58 98.3 F 05/03/21 08:51 78 112/53 05/03/21 08:50 90 21 05/03/21 08:40 72 106/54 05/03/21 08:31 73 106/54 05/03/21 08:21 81 106/54 05/03/21 08:11 84 106/54 05/03/21 08:00 75 76 21 106/54 05/03/21 07:51 72 112/53 05/03/21 07:47 76 05/03/21 07:41 78 112/53 05/03/21 07:31 75 112/53 05/03/21 07:21 79 112/53 05/03/21 07:11 77 112/53 05/03/21 07:00 80 112/53 05/03/21 06:51 80 110/51 05/03/21 06:41 81 110/51 05/03/21 06:31 78 110/51 05/03/21 06:21 79 110/51 05/03/21 06:11 78 110/51 05/03/21 06:00 76 110/51 05/03/21 05:51 81 109/54 05/03/21 05:41 78 109/54 05/03/21 05:31 77 109/54 05/03/21 05:21 84 109/54 05/03/21 05:11 80 109/54 05/03/21 05:00 75 117/48 05/03/21 04:51 75 106/46 05/03/21 04:41 77 106/46 05/03/21 04:31 80 106/46 05/03/21 04:21 76 106/46 05/03/21 04:11 81 106/46 05/03/21 04:00 79 106/46 05/03/21 03:51 79 115/48 05/03/21 03:45 98.4 F 05/03/21 03:41 79 115/48 05/03/21 03:31 77 115/48 05/03/21 03:21 79 115/48 05/03/21 03:17 77 115/48 05/03/21 03:11 75 100/44 05/03/21 03:00 85 100/44 05/03/21 02:50 74 100/44 05/03/21 02:40 74 100/44 05/03/21 02:30 71 100/44 05/03/21 02:20 76 100/44 05/03/21 02:10 75 100/44 05/03/21 02:00 76 104/52 05/03/21 01:50 72 104/52 05/03/21 01:40 74 104/52 05/03/21 01:30 75 104/52 05/03/21 01:20 72 104/52 05/03/21 01:10 71 104/52 05/03/21 01:00 79 111/52 05/03/21 00:50 70 111/52 05/03/21 00:40 71 111/52 05/03/21 00:30 71 111/52 01/21/22 00:20 71 111/52 05/03/21 00:10 72 111/52 05/03/21 00:00 71 73 20 109/56 05/02/21 23:50 72 109/56 05/02/21 23:40 71 109/56 05/02/21 23:37 97.6 F 05/02/21 23:30 71 109/56 05/02/21 23:20 71 109/56 05/02/21 23:10 72 109/56 05/02/21 23:09 72 109/56 05/02/21 22:00 97.5 F L 74 05/02/21 20:00 73 20 05/02/21 19:00 97.5 F L 05/02/21 18:24 50 L 05/02/21 17:45 93.0 F L 50 L 20 127/55 05/02/21 17:31 54 L 21 132/63 05/02/21 17:15 52 L 20 137/60 05/02/21 17:01 50 L 21 126/59 05/02/21 16:45 51 L 20 136/62 05/02/21 16:31 54 L 20 131/58 05/02/21 16:15 52 L 20 136/60 05/02/21 16:01 52 L 20 139/62 05/02/21 15:45 49 L 21 124/54 Pulse Ox 05/03/21 15:01 100 05/03/21 14:51 100 05/03/21 14:41 100 05/03/21 14:31 99 05/03/21 14:21 98 05/03/21 14:10 97 05/03/21 14:00 94 05/03/21 13:51 100 05/03/21 13:41 100 05/03/21 13:31 05/03/21 13:21 100 05/03/21 13:11 100 05/03/21 13:00 05/03/21 12:51 100 05/03/21 12:41 100 05/03/21 12:31 92 05/03/21 12:21 100 05/03/21 12:19 100 05/03/21 12:11 100 05/03/21 12:00 100 05/03/21 11:51 100 05/03/21 11:41 95 05/03/21 11:37 100 05/03/21 11:36 05/03/21 11:31 99 05/03/21 11:21 95 05/03/21 11:11 98 05/03/21 11:01 84 05/03/21 10:51 05/03/21 10:41 97 05/03/21 10:31 100 05/03/21 10:21 100 05/03/21 10:11 100 05/03/21 10:00 100 05/03/21 09:51 100 05/03/21 09:41 100 05/03/21 09:31 100 05/03/21 09:21 100 05/03/21 09:16 100 05/03/21 09:11 100 05/03/21 09:00 100 05/03/21 08:58 05/03/21 08:51 100 05/03/21 08:50 05/03/21 08:40 100 05/03/21 08:31 100 05/03/21 08:21 100 05/03/21 08:11 100 05/03/21 08:00 100 05/03/21 07:51 100 05/03/21 07:47 05/03/21 07:41 100 05/03/21 07:31 100 05/03/21 07:21 100 05/03/21 07:11 100 05/03/21 07:00 100 05/03/21 06:51 100 05/03/21 06:41 100 05/03/21 06:31 100 05/03/21 06:21 100 05/03/21 06:11 100 05/03/21 06:00 100 05/03/21 05:51 100 05/03/21 05:41 100 05/03/21 05:31 100 05/03/21 05:21 100 05/03/21 05:11 100 05/03/21 05:00 100 05/03/21 04:51 100 05/03/21 04:41 100 05/03/21 04:31 100 05/03/21 04:21 100 05/03/21 04:11 100 05/03/21 04:00 100 05/03/21 03:51 100 05/03/21 03:45 05/03/21 03:41 100 05/03/21 03:31 100 05/03/21 03:21 100 05/03/21 03:17 100 05/03/21 03:11 05/03/21 03:00 05/03/21 02:50 05/03/21 02:40 05/03/21 02:30 05/03/21 02:20 05/03/21 02:10 05/03/21 02:00 05/03/21 01:50 05/03/21 01:40 05/03/21 01:30 05/03/21 01:20 05/03/21 01:10 05/03/21 01:00 05/03/21 00:50 05/03/21 00:40 05/03/21 00:30 05/03/21 00:20 05/03/21 00:10 05/03/21 00:00 05/02/21 23:50 05/02/21 23:40 05/02/21 23:37 05/02/21 23:30 05/02/21 23:20 100 05/02/21 23:10 100 05/02/21 23:09 100 05/02/21 22:00 05/02/21 20:00 05/02/21 19:00 05/02/21 18:24 98 05/02/21 17:45 98 05/02/21 17:31 98 05/02/21 17:15 98 05/02/21 17:01 05/02/21 16:45 05/02/21 16:31 98 05/02/21 16:15 100 05/02/21 16:01 05/02/21 15:45 72 L - Physical Examination General: Other (Intubated and sedated) HEENT: Positive: Mucus Membranes Moist Neck: Positive: neck supple, trachea midline Cardiac: Positive: Bradycardia Lungs: Positive: Ventilated Respirations Neuro: Positive: Other (Pt intubated not following commands) Abdomen: Positive: Soft, Distended Skin: Negative: Rash Extremities: Present: Cool. Absent: edema - Labs and Meds Cardiac Enzymes 05/03/21 Range/Units 04:52 AST 152 H (5-40) units/L CBC 05/03/21 Range/Units 04:52 WBC 4.5 (4.5-11.0) K/mm3 RBC 2.20 L (3.65-5.03) M/mm3 Hgb 6.8 L (10.1-14.3) gm/dl Hct 20.6 L (30.3-42.9) % Plt Count 140 (140-440) K/mm3 Comprehensive Metabolic Panel 05/02/21 05/03/21 Range/Units 15:56 04:52 Sodium 129 L (137-145) mmol/L Potassium 5.8 H 6.2 H* (3.6-5.0) mmol/L Chloride 97.0 L (98-107) mmol/L Carbon Dioxide 22 (22-30) mmol/L BUN 25 H (7-17) mg/dL Creatinine 1.2 D (0.6-1.2) mg/dL Glucose 85 (65-100) mg/dL Calcium 9.0 (8.4-10.2) mg/dL AST 152 H (5-40) units/L ALT 127 H (7-56) units/L Alkaline Phosphatase 85 (35-129) units/L Total Protein 8.6 H (6.3-8.2) g/dL Albumin 2.6 L (3.9-5) g/dL - Imaging and Cardiology EKG: pending, report reviewed Echo: report reviewed - Telemetry EKG Rhythm: Sinus Bradycardia - EKG Sinus rhythms and dysrhythmias: sinus bradycardia
[2021-05-03] MEDS ORDERED: DOPamine 800 MG in DEXTROSE 5% IN WATER 230 ML IV SCH (16:00)
[2021-05-03] MEDS: DEXTROSE 10% *Hypoglycemia IV PRN (17:02)
[2021-05-03] MEDS: fentaNYL 100 MCG/2 ML INJ IV PRN (17:23)
[2021-05-03 20:57] LABS: Calcium 8.8 mg/dL (8.4-10.2)
[2021-05-03] MEDS: INSULIN LISPRO 100 UNIT/ML SUB-Q SCH (21:00)
[2021-05-03] MEDS: CEFEPIME/NS 1 GM/100 ML 1 GM/100 ML BAG IV SCH (21:11)
[2021-05-04] MEDS: INSULIN LISPRO 100 UNIT/ML SUB-Q SCH ×6 (02:22→21:42)
[2021-05-04] MEDS: fentaNYL 100 MCG/2 ML INJ IV PRN ×2 (03:02→18:18)
[2021-05-04 03:38] LABS: ABG Base Excess -1.8 mmol/L (-2.0-3.0); ABG HCO3 22.6 mmol/L (20.0-26.0); ABG Methemoglobin 0.7 % (0.0-1.5); ABG PCO2 36.3 mm Hg; ABG PH 7.412 pH Units (7.350-7.450); ABG PO2 82.2 mm Hg (80.0-90.0)
[2021-05-04] MEDS: HYDROCORTISONE SOD SUCC 100 MG/2 ML VIAL IV SCH ×4 (05:54→21:09)
[2021-05-04] MEDS: METOCLOPRAMIDE 10 MG/2 ML INJ IV SCH ×2 (05:55→15:44)
[2021-05-04] MEDS: LEVOTHYROXINE 100 MCG INJ IV SCH (05:58)
--- NOTE | 2021-05-04 06:05 | Progress Note ---
Assessment and Plan Symptomatic bradycardia with subsequent PEA arrest status post ROSC Acute hypoxic respiratory failure Cardiogenic shock Hypothyroidism Acute metabolic encephalopathy Leukopenia Anemia Transaminitis Hypothermia Hyperkalemia Medical management of hyperkalemia Deescalate antibiotics Blood and tracheal aspirate cultures from 05/02- NGTD Bowel regimen Stop VTE prophylaxis, SCDs. She has required supportive blood transfusions and has thrombocytopenia Will discuss with cardiology, if no plans for PPM- start SBT with goal to liberate from MVS. Avoid delirium Maintain sleep-wake cycle -Off dopamine -Titrate supplemental oxygen to keep SpO2 88-90% -VAP bundle addressed, aspiration precautions -ABG, CXR as clinically indicated -Prn Fentanyl for analgesia - s/p transvenous pacemaker by cardiology -Continue to Trend liver enzymes -VTE prophylaxis- on Enoxaparin -Supportive transfusions as clinically indicated, keep HgB>7g/dL -Treat with empiric antibiotics, de-escalate once culture data is available Full Code The high probability of a clinically significant, sudden or life threatening deterioration of the [multi] system(s) required my full and direct attention, intervention and personal management. The aggregate critical care time was [35] minutes. This time is in addition to time spent performing reported procedures but includes the following: [x] Data Review and interpretation [x] Patient assessment and monitoring of vital signs [x] Documentation [x] Medication orders and management Subjective Date of service: 05/04/21 Principal diagnosis: Symptomatic bradycardia Interval history: Follow up :Symptomatic bradycardia with subsequent PEA arrest status post ROSC; Acute hypoxic respiratory failure on MVS; Cardiogenic shock; Hypothyroidism; Acute metabolic encephalopathy Seen and examined with RN at the bedside. Vitals, labs, medications, chart and imaging reviewed. No adverse events reported. Off dopamine She is awake and alert Remains on MVS, minimal settings Discussed with respiratory care. Objective Vital Signs - 12hr 05/03/21 05/03/21 05/03/21 18:11 18:18 18:21 Temperature 96.1 F L Pulse Rate 66 71 75 Pulse Rate [ From Monitor] Respiratory 22 Rate Blood Pressure 108/48 136/62 108/48 O2 Sat by Pulse 99 Oximetry 05/03/21 05/03/21 05/03/21 18:31 18:41 18:48 Temperature 96.6 F L Pulse Rate 68 68 68 Pulse Rate [ From Monitor] Respiratory 22 Rate Blood Pressure 108/48 108/48 O2 Sat by Pulse 100 100 Oximetry 05/03/21 05/03/21 05/03/21 18:51 19:00 19:11 Temperature Pulse Rate 72 70 74 Pulse Rate [ From Monitor] Respiratory Rate Blood Pressure 108/48 100/55 100/55 O2 Sat by Pulse 100 100 Oximetry 05/03/21 05/03/21 05/03/21 19:21 19:31 19:41 Temperature Pulse Rate 73 74 73 Pulse Rate [ From Monitor] Respiratory Rate Blood Pressure 100/55 100/55 100/55 O2 Sat by Pulse 100 97 100 Oximetry 05/03/21 05/03/21 05/03/21 19:51 20:00 20:11 Temperature 98.4 F Pulse Rate 80 84 81 Pulse Rate [ 84 From Monitor] Respiratory 22 Rate Blood Pressure 100/55 122/45 122/45 O2 Sat by Pulse 98 100 Oximetry 05/03/21 05/03/21 05/03/21 20:20 20:21 20:31 Temperature Pulse Rate 95 H 80 77 Pulse Rate [ From Monitor] Respiratory 5 L Rate Blood Pressure 119/56 122/45 122/45 O2 Sat by Pulse 100 100 100 Oximetry 05/03/21 05/03/21 05/03/21 20:41 20:51 21:00 Temperature Pulse Rate 79 88 77 Pulse Rate [ From Monitor] Respiratory Rate Blood Pressure 122/45 122/45 110/49 O2 Sat by Pulse 100 100 100 Oximetry 05/03/21 05/03/21 05/03/21 21:11 21:21 21:31 Temperature Pulse Rate 76 83 85 Pulse Rate [ From Monitor] Respiratory Rate Blood Pressure 110/49 110/49 110/49 O2 Sat by Pulse 100 100 100 Oximetry 05/03/21 05/03/21 05/03/21 21:41 21:51 22:00 Temperature Pulse Rate 83 83 84 Pulse Rate [ From Monitor] Respiratory Rate Blood Pressure 110/49 110/49 120/50 O2 Sat by Pulse 100 100 100 Oximetry 05/03/21 05/03/21 05/03/21 22:11 22:21 22:31 Temperature Pulse Rate 84 89 92 H Pulse Rate [ From Monitor] Respiratory Rate Blood Pressure 120/50 120/50 120/50 O2 Sat by Pulse 100 100 100 Oximetry 05/03/21 05/03/21 05/03/21 22:41 22:51 23:00 Temperature Pulse Rate 90 86 95 H Pulse Rate [ From Monitor] Respiratory Rate Blood Pressure 120/50 120/50 119/56 O2 Sat by Pulse 100 100 100 Oximetry 05/03/21 05/03/21 05/03/21 23:03 23:10 23:11 Temperature Pulse Rate 82 95 H 91 H Pulse Rate [ From Monitor] Respiratory 4 L Rate Blood Pressure 119/56 119/56 119/56 O2 Sat by Pulse 100 100 100 Oximetry 05/03/21 05/03/21 05/03/21 23:21 23:31 23:41 Temperature Pulse Rate 90 75 85 Pulse Rate [ From Monitor] Respiratory Rate Blood Pressure 119/56 119/56 119/56 O2 Sat by Pulse 100 100 100 Oximetry 05/03/21 05/04/21 05/04/21 23:51 00:00 00:11 Temperature 100.2 F H Pulse Rate 82 78 83 Pulse Rate [ 84 From Monitor] Respiratory 22 Rate Blood Pressure 119/56 119/47 119/47 O2 Sat by Pulse 100 98 100 Oximetry 05/04/21 05/04/21 05/04/21 00:21 00:31 00:41 Temperature Pulse Rate 87 77 79 Pulse Rate [ From Monitor] Respiratory Rate Blood Pressure 119/47 119/47 119/47 O2 Sat by Pulse 100 100 100 Oximetry 05/04/21 05/04/21 05/04/21 00:51 01:00 01:11 Temperature Pulse Rate 73 79 83 Pulse Rate [ From Monitor] Respiratory Rate Blood Pressure 119/47 116/50 116/50 O2 Sat by Pulse 100 100 Oximetry 05/04/21 05/04/21 05/04/21 01:21 01:31 01:41 Temperature Pulse Rate 82 82 90 Pulse Rate [ From Monitor] Respiratory Rate Blood Pressure 116/50 116/50 116/50 O2 Sat by Pulse 100 99 98 Oximetry 05/04/21 05/04/21 05/04/21 01:51 02:00 02:11 Temperature Pulse Rate 89 75 89 Pulse Rate [ From Monitor] Respiratory Rate Blood Pressure 116/50 135/50 135/50 O2 Sat by Pulse 100 100 100 Oximetry 05/04/21 05/04/21 05/04/21 02:21 02:31 02:41 Temperature Pulse Rate 84 86 92 H Pulse Rate [ From Monitor] Respiratory Rate Blood Pressure 135/50 135/50 135/50 O2 Sat by Pulse 100 100 100 Oximetry 05/04/21 05/04/21 05/04/21 02:51 03:00 03:02 Temperature Pulse Rate 92 H 89 Pulse Rate [ From Monitor] Respiratory 23 Rate Blood Pressure 135/50 131/47 O2 Sat by Pulse 100 100 Oximetry 05/04/21 05/04/21 05/04/21 03:11 03:21 03:31 Temperature Pulse Rate 74 80 74 Pulse Rate [ From Monitor] Respiratory Rate Blood Pressure 131/47 131/47 131/47 O2 Sat by Pulse 100 100 100 Oximetry 05/04/21 05/04/21 05/04/21 03:41 03:55 04:00 Temperature 100.6 F H Pulse Rate 79 94 H 70 Pulse Rate [ 84 From Monitor] Respiratory 4 L 22 Rate Blood Pressure 131/47 O2 Sat by Pulse 97 98 Oximetry Constitutional: no acute distress, alert Eyes: non-icteric ENT: oropharynx dry Neck: supple, no lymphadenopathy, other (RIJ transvenous pacemaker) Effort: normal Ascultation: Bilateral: diminished breath sounds, rales Cardiovascular: regular rate and rhythm, other (S1,S2) Gastrointestinal: normoactive bowel sounds, soft, other (distended suprapubic area- possibly bladder) Extremities: no edema, pulses normal Neurologic: non-focal exam, pupils equal and round Psychiatric: anxious CBC and BMP: 05/05/21 04:35 05/06/21 04:56 ABG, PT/INR, D-dimer: ABG ABG pH 7.412 pH Units (7.350-7.450) 05/04/21 03:15 ABG pCO2 36.3 mm Hg 05/04/21 03:15 ABG pO2 82.2 mm Hg (80.0-90.0) 05/04/21 03:15 ABG O2 Saturation 97.0 % (95.0-99.0) 05/04/21 03:15 PT/INR, D-dimer PT 15.1 Sec. (12.2-14.9) H 05/02/21 05:16 INR 1.07 (0.87-1.13) 05/02/21 05:16 Abnormal lab findings: Abnormal Labs 05/02/21 05/02/21 05/02/21 05:16 05:16 05:16 WBC 2.9 L RBC 2.36 L Hgb 7.4 L Hct 22.2 L RDW 18.2 H Lymph # (Auto) 0.5 L Seg Neutrophils % 76.5 H Seg Neuts % (Manual) Lymphocytes % (Manual) Lymphocytes # (Manual) PT 15.1 H APTT 41.7 H ABG pO2 ABG O2 Saturation ABG Hemoglobin Oxyhemoglobin Sodium 129 L Potassium 6.2 H* Chloride 97.0 L Carbon Dioxide BUN Creatinine Glucose POC Glucose AST ALT Total Creatine Kinase Total Protein Albumin TSH Free T4 Coronavirus (PCR) Crossmatch 05/02/21 05/02/21 05/02/21 05:17 05:53 06:41 WBC RBC Hgb Hct RDW Lymph # (Auto) Seg Neutrophils % Seg Neuts % (Manual) Lymphocytes % (Manual) Lymphocytes # (Manual) PT APTT ABG pO2 ABG O2 Saturation ABG Hemoglobin Oxyhemoglobin Sodium Potassium Chloride Carbon Dioxide BUN Creatinine Glucose POC Glucose AST 144 H ALT 115 H Total Creatine Kinase 189 H Total Protein 9.6 H Albumin 2.9 L TSH 10.350 H Free T4 0.61 L Coronavirus (PCR) Crossmatch 05/02/21 05/02/21 05/03/21 11:50 15:56 04:52 WBC RBC 2.20 L Hgb 6.8 L Hct 20.6 L RDW 18.4 H Lymph # (Auto) Seg Neutrophils % Seg Neuts % (Manual) 86.0 H Lymphocytes % (Manual) 3.0 L Lymphocytes # (Manual) 0.1 L PT APTT ABG pO2 352.4 H ABG O2 Saturation 99.5 H ABG Hemoglobin 6.9 L Oxyhemoglobin Sodium Potassium 5.8 H Chloride Carbon Dioxide BUN Creatinine Glucose POC Glucose AST ALT Total Creatine Kinase Total Protein Albumin TSH Free T4 Coronavirus (PCR) Crossmatch 05/03/21 05/03/21 05/03/21 04:52 10:10 10:23 WBC RBC Hgb Hct RDW Lymph # (Auto) Seg Neutrophils % Seg Neuts % (Manual) Lymphocytes % (Manual) Lymphocytes # (Manual) PT APTT ABG pO2 177.2 H ABG O2 Saturation 99.1 H ABG Hemoglobin 7.1 L Oxyhemoglobin Sodium 129 L Potassium 6.2 H* Chloride 97.0 L Carbon Dioxide BUN 25 H Creatinine Glucose POC Glucose 106 H AST 152 H ALT 127 H Total Creatine Kinase Total Protein 8.6 H Albumin 2.6 L TSH Free T4 Coronavirus (PCR) Crossmatch 05/03/21 05/03/21 05/03/21 13:11 14:13 16:49 WBC RBC Hgb Hct RDW Lymph # (Auto) Seg Neutrophils % Seg Neuts % (Manual) Lymphocytes % (Manual) Lymphocytes # (Manual) PT APTT ABG pO2 ABG O2 Saturation ABG Hemoglobin Oxyhemoglobin Sodium Potassium Chloride Carbon Dioxide BUN Creatinine Glucose POC Glucose 116 H 58 L AST ALT Total Creatine Kinase Total Protein Albumin TSH Free T4 Coronavirus (PCR) Crossmatch See Detail 05/03/21 05/03/21 05/03/21 17:34 19:58 20:07 WBC RBC Hgb Hct RDW Lymph # (Auto) Seg Neutrophils % Seg Neuts % (Manual) Lymphocytes % (Manual) Lymphocytes # (Manual) PT APTT ABG pO2 ABG O2 Saturation ABG Hemoglobin Oxyhemoglobin Sodium 131 L Potassium 5.7 H Chloride 97.7 L Carbon Dioxide 21 L BUN 28 H Creatinine 1.4 H Glucose 130 H POC Glucose 123 H 122 H AST ALT Total Creatine Kinase Total Protein Albumin TSH Free T4 Coronavirus (PCR) Crossmatch 05/03/21 05/03/21 05/04/21 Unknown 23:59 02:59 WBC RBC Hgb Hct RDW Lymph # (Auto) Seg Neutrophils % Seg Neuts % (Manual) Lymphocytes % (Manual) Lymphocytes # (Manual) PT APTT ABG pO2 ABG O2 Saturation ABG Hemoglobin Oxyhemoglobin Sodium Potassium Chloride Carbon Dioxide BUN Creatinine Glucose POC Glucose 117 H 142 H AST ALT Total Creatine Kinase Total Protein Albumin TSH Free T4 Coronavirus (PCR) Positive A Crossmatch 05/04/21 03:15 WBC RBC Hgb Hct RDW Lymph # (Auto) Seg Neutrophils % Seg Neuts % (Manual) Lymphocytes % (Manual) Lymphocytes # (Manual) PT APTT ABG pO2 ABG O2 Saturation ABG Hemoglobin 6.9 L Oxyhemoglobin 94.9 L Sodium Potassium Chloride Carbon Dioxide BUN Creatinine Glucose POC Glucose AST ALT Total Creatine Kinase Total Protein Albumin TSH Free T4 Coronavirus (PCR) Crossmatch Allied health notes reviewed: RT
[2021-05-04] MEDS: BUDESONIDE 0.5 MG/2 ML NEBU IH SCH ×3 (08:37→20:56)
[2021-05-04] MEDS: IPRATROPIUM/ALBUTEROL SULFATE 3 ML AMPUL.NEB IH SCH ×6 (08:37→20:55)
[2021-05-04] MEDS ORDERED: SODIUM CHLORIDE 0.9% 500 ML 500 ML IV ONE (09:15)
[2021-05-04 10:14] LABS: Hematocrit 21.4 % (30.3-42.9); Hemoglobin 7.1 gm/dl (10.1-14.3); Lymphocytes # (Auto) 0.6 K/mm3 (1.2-5.4); Lymphocytes % (Auto) 10.4 % (13.4-35.0); Mean Corpuscular HGB Conc 33 % (30-34); Mean Corpuscular Volume 94 fl (79-97); Monocytes # (Auto) 0.3 K/mm3 (0.0-0.8); Monocytes % (Auto) 4.9 % (0.0-7.3); Red Blood Count 2.28 M/mm3 (3.65-5.03); Red Cell Distribution Width 18.5 % (13.2-15.2)
[2021-05-04] MEDS: SENNOSIDES ORAL LIQD 8.8 MG/5 ML ORAL LIQD PO SCH ×2 (10:16→21:08)
[2021-05-04] MEDS: POLYETHYLENE GLYCOL 3350 17 GM POWDER PO SCH (10:16)
[2021-05-04] MEDS: ENOXAPARIN 30 MG/0.3 ML INJ SUB-Q SCH (10:16)
[2021-05-04] MEDS: DOCUSATE SODIUM 100 MG/10 ML ORAL LIQD PO SCH ×2 (10:16→21:08)
[2021-05-04] MEDS: FAMOTIDINE 20 MG/2 ML INJ IV SCH ×2 (10:17→21:09)
[2021-05-04 10:18] LABS: Platelet Count 97 K/mm3 (140-440)
[2021-05-04 10:37] LABS: Calcium 9.3 mg/dL (8.4-10.2)
--- NOTE | 2021-05-04 11:29 | Progress Note ---
Assessment and Plan Assessment and plan: This is a 89-year-old female with known history of HTN, legally blind, and recent UTI initially admitted for bradycardia and AMS. Patient subsequently PEA arrested with ROSC in the ED was intubated and placed on ventilatory support. Then was taken to [facility] for emergent transvenous pacemaker placement by Cardio. Hospital Course to Date: 05/03: s/p cardiac arrest, remains unresponsive, not on any sedation. +gag/cough and corneal reflex, pending CT head/brain. Patient H&H also dropped this am, 1unit of PRBCs ordered. Hyperkalemia was treated per protoocl, repeat BMP at 16 00. BR was initiated for severe constipation, TF was initiated. 05/04: Patient is awake this am, following simple commands. Off dopamine gtt and Transvenous pacer at a back rate of 60. COVID PCR +, patient is on IV Abx and IV steroids. Awaiting cardio recommendation, if no plan for PPM insertion, plan for PST for possible extubation. 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 #Acute Hypoxic Respiratory Failure - Coded in the ED, intubated on 05/02 - Vent Setting:PRVC-30%,6,20,350 - This am ABG noted - COVID PCR pending - CCM consulted, appreciate recommendations - VAP bundle addressed - Aspiration precaution HOB above 30 - Daily SBT and SAT trials as tolerated - Daily ABG and CXR - Continue SPO2 monitoring for SPO2 goal above 92% #GI: Severe Constipation #Transaminitis - Abdominal distention noted - KUB with moderate to severe constipation - BR and reglan added - Will initiate eneteral feeding - On PPI - Presented with elevated LFTs, unclear etiology - Will continue to trend LFTs #Hyperkalemia - Treated with insulin, D50, calcium gluconate, & bcarb - repeat BMP this afternoon - Strict intake and output - Monitor and replace electrolytes as needed - Trend BMP #Euthyroid sick syndrome - The TFT pattern is not consistent with myxedema coma - levothyroxine 25 mcg IV - Recheck TFT's in 3-4 days #DVT prophylaxis - Lovenox 30 mg subq daily - SCDs to bilateral lower extremities while in bed Family contact: Cheko Aleena (grandson): [phone] - has requested you call him first. His Albanian is better and concerned mother might not catch everything. Hope Flood (daughter): [phone] The high probability of a clinically significant, sudden or life threatening deterioration of the [multi] system(s) required my full and direct attention, intervention and personal management. The aggregate critical care time was [60] minutes. This time is in addition to time spent performing reported procedures but includes the following: [x] Data Review and interpretation [x] Patient assessment and monitoring of vital signs [x] Documentation [x] Medication orders and management Disposition Plan: ICU Total Time Spent with Patient (Minutes): 60 History Interval history: Patient seen and examined at the bedside. Intubated and awake this am, following simple commands. Still with transvenous pacer, back up rate of 60, on dopamine gtt. Patient is SR on the monitor, HR 60 to 70s. ADALID overnight Hospitalist Physical - Constitutional Vitals: Temp Pulse Resp BP Pulse Ox 98.0 F 67 20 131/54 98 05/04/21 08:00 05/04/21 08:53 05/04/21 08:53 05/04/21 08:21 05/04/21 08:21 General appearance: Present: no acute distress, other (On the vent) - EENT Eyes: Present: PERRL ENT: hearing intact - Neck Neck: Present: normal ROM - Respiratory Respiratory effort: normal Respiratory: bilateral: rhonchi - Cardiovascular Rhythm: regular Heart Sounds: Present: S1 & S2 - Extremities Extremities: no ischemia, pulses intact, pulses symmetrical Extremity abnormal: edema - Peripheral Assessment Generalized Edema Type: Non-pitting Edema Degree: 1+ Capillary Refill: < 3 seconds Skin Temperature: Warm Peripheral Pulses: within normal limits - Abdominal General gastrointestinal: soft, non-distended, normal bowel sounds - Integumentary Integumentary: Present: warm, dry - Psychiatric Psychiatric: cooperative, other (On the vent) - Neurologic Neurologic: other (Awake and following commands) - Allied Health Allied health notes reviewed: nursing HEART Score - HEART Score Troponin: Troponin T < 0.010 ng/mL (0.00-0.029) 05/02/21 05:16 Results - Labs CBC & Chem 7: 05/04/21 09:41 05/04/21 09:41 Labs: Laboratory Last Values WBC 5.5 K/mm3 (4.5-11.0) 05/04/21 09:41 RBC 2.28 M/mm3 (3.65-5.03) L 05/04/21 09:41 Hgb 7.1 gm/dl (10.1-14.3) L 05/04/21 09:41 Hct 21.4 % (30.3-42.9) L 05/04/21 09:41 MCV 94 fl (79-97) 05/04/21 09:41 MCH 31 pg (28-32) 05/04/21 09:41 MCHC 33 % (30-34) 05/04/21 09:41 RDW 18.5 % (13.2-15.2) H 05/04/21 09:41 Plt Count 97 K/mm3 (140-440) L 05/04/21 09:41 Lymph % (Auto) 10.4 % (13.4-35.0) L 05/04/21 09:41 [place] % (Auto) 4.9 % (0.0-7.3) 05/04/21 09:41 Eos % (Auto) 0.0 % (0.0-4.3) 05/04/21 09:41 Baso % (Auto) 0.0 % (0.0-1.8) 05/04/21 09:41 Lymph # (Auto) 0.6 K/mm3 (1.2-5.4) L 05/04/21 09:41 [place] # (Auto) 0.3 K/mm3 (0.0-0.8) 05/04/21 09:41 Eos # (Auto) 0.0 K/mm3 (0.0-0.4) 05/04/21 09:41 Baso # (Auto) 0.0 K/mm3 (0.0-0.1) 05/04/21 09:41 Add Manual Diff Complete 05/03/21 04:52 Total Counted 100 05/03/21 04:52 Seg Neutrophils % 84.7 % (40.0-70.0) H 05/04/21 09:41 Seg Neuts % (Manual) 86.0 % (40.0-70.0) H 05/03/21 04:52 Band Neutrophils % 8.0 % 05/03/21 04:52 Lymphocytes % (Manual) 3.0 % (13.4-35.0) L 05/03/21 04:52 Reactive Lymphs % (Man) 0 % 05/03/21 04:52 Monocytes % (Manual) 2.0 % (0.0-7.3) 05/03/21 04:52 Eosinophils % (Manual) 1.0 % (0.0-4.3) 05/03/21 04:52 Basophils % (Manual) 0 % (0.0-1.8) 05/03/21 04:52 Metamyelocytes % 0 % 05/03/21 04:52 Myelocytes % 0 % 05/03/21 04:52 Promyelocytes % 0 % 05/03/21 04:52 Blast Cells % 0 % 05/03/21 04:52 Nucleated RBC % Not Reportable 05/03/21 04:52 Seg Neutrophils # 4.6 K/mm3 (1.8-7.7) 05/04/21 09:41 Seg Neutrophils # Man 3.9 K/mm3 (1.8-7.7) 05/03/21 04:52 Band Neutrophils # 0.4 K/mm3 05/03/21 04:52 Lymphocytes # (Manual) 0.1 K/mm3 (1.2-5.4) L 05/03/21 04:52 Abs React Lymphs (Man) 0.0 K/mm3 05/03/21 04:52 Monocytes # (Manual) 0.1 K/mm3 (0.0-0.8) 05/03/21 04:52 Eosinophils # (Manual) 0.0 K/mm3 (0.0-0.4) 05/03/21 04:52 Basophils # (Manual) 0.0 K/mm3 (0.0-0.1) 05/03/21 04:52 Metamyelocytes # 0.0 K/mm3 05/03/21 04:52 Myelocytes # 0.0 K/mm3 05/03/21 04:52 Promyelocytes # 0.0 K/mm3 05/03/21 04:52 Blast Cells # 0.0 K/mm3 05/03/21 04:52 WBC Morphology Not Reportable 05/03/21 04:52 Hypersegmented Neuts Not Reportable 05/03/21 04:52 Hyposegmented Neuts Not Reportable 05/03/21 04:52 Hypogranular Neuts Not Reportable 05/03/21 04:52 Smudge Cells Not Reportable 05/03/21 04:52 Toxic Granulation Not Reportable 05/03/21 04:52 Toxic Vacuolation Not Reportable 05/03/21 04:52 Dohle Bodies Not Reportable 05/03/21 04:52 Pelger-Huet Anomaly Not Reportable 05/03/21 04:52 Shanti Rods Not Reportable 05/03/21 04:52 Platelet Estimate Consistent w auto 05/03/21 04:52 Clumped Platelets Not Reportable 05/03/21 04:52 Plt Clumps, EDTA Not Reportable 05/03/21 04:52 Large Platelets Not Reportable 05/03/21 04:52 Giant Platelets Not Reportable 05/03/21 04:52 Platelet Satelliting Not Reportable 05/03/21 04:52 Plt Morphology Comment Not Reportable 05/03/21 04:52 RBC Morphology Not Reportable 05/03/21 04:52 Dimorphic RBCs Not Reportable 05/03/21 04:52 Polychromasia Not Reportable 05/03/21 04:52 Hypochromasia 2+ 05/03/21 04:52 Poikilocytosis Not Reportable 05/03/21 04:52 Anisocytosis 1+ 05/03/21 04:52 Microcytosis Not Reportable 05/03/21 04:52 Macrocytosis Few 05/03/21 04:52 Spherocytes Not Reportable 05/03/21 04:52 Pappenheimer Bodies Not Reportable 05/03/21 04:52 Sickle Cells Not Reportable 05/03/21 04:52 Target Cells Not Reportable 05/03/21 04:52 Tear Drop Cells Not Reportable 05/03/21 04:52 Ovalocytes Few 05/03/21 04:52 Helmet Cells Not Reportable 05/03/21 04:52 Marcelino-Calpine Bodies Not Reportable 05/03/21 04:52 [place] Rings Not Reportable 05/03/21 04:52 [place] Cells Not Reportable 05/03/21 04:52 Bite Cells Not Reportable 05/03/21 04:52 Crenated Cell Not Reportable 05/03/21 04:52 Elliptocytes Not Reportable 05/03/21 04:52 Acanthocytes (Spur) Not Reportable 05/03/21 04:52 Rouleaux Not Reportable 05/03/21 04:52 Hemoglobin C Crystals Not Reportable 05/03/21 04:52 Schistocytes Not Reportable 05/03/21 04:52 Malaria parasites Not Reportable 05/03/21 04:52 Anatoly Bodies Not Reportable 05/03/21 04:52 Hem Pathologist Commnt No 05/03/21 04:52 PT 15.1 Sec. (12.2-14.9) H 05/02/21 05:16 INR 1.07 (0.87-1.13) 05/02/21 05:16 APTT 41.7 Sec. (24.2-36.6) H 05/02/21 05:16 ABG pH 7.412 pH Units (7.350-7.450) 05/04/21 03:15 ABG pCO2 36.3 mm Hg 05/04/21 03:15 ABG pO2 82.2 mm Hg (80.0-90.0) 05/04/21 03:15 ABG HCO3 22.6 mmol/L (20.0-26.0) 05/04/21 03:15 ABG O2 Saturation 97.0 % (95.0-99.0) 05/04/21 03:15 ABG O2 Content 9.4 (0.0-44) 05/04/21 03:15 ABG Base Excess -1.8 mmol/L (-2.0-3.0) 05/04/21 03:15 ABG Hemoglobin 6.9 gm/dl (12.0-16.0) L 05/04/21 03:15 ABG Carboxyhemoglobin 1.5 % (0.0-5.0) 05/04/21 03:15 ABG Methemoglobin 0.7 % (0.0-1.5) 05/04/21 03:15 Oxyhemoglobin 94.9 % (95.0-99.0) L 05/04/21 03:15 FiO2 30 % 05/04/21 03:15 Sodium 132 mmol/L (137-145) L 05/04/21 09:41 Potassium 5.0 mmol/L (3.6-5.0) 05/04/21 09:41 Chloride 98.7 mmol/L (98-107) 05/04/21 09:41 Carbon Dioxide 21 mmol/L (22-30) L 05/04/21 09:41 Anion Gap 17 mmol/L 05/04/21 09:41 BUN 33 mg/dL (7-17) H 05/04/21 09:41 Creatinine 1.4 mg/dL (0.6-1.2) H 05/04/21 09:41 Estimated GFR 43 ml/min 05/04/21 09:41 BUN/Creatinine Ratio 24 % 05/04/21 09:41 Glucose 143 mg/dL (65-100) H 05/04/21 09:41 POC Glucose 142 mg/dL (70-105) H 05/04/21 02:59 Lactic Acid 0.80 mmol/L (0.7-2.0) 05/02/21 05:53 Calcium 9.3 mg/dL (8.4-10.2) 05/04/21 09:41 Total Bilirubin < 0.20 mg/dL (0.1-1.2) 05/03/21 04:52 Direct Bilirubin < 0.2 mg/dL (0-0.2) 05/02/21 05:17 Indirect Bilirubin 0.0 mg/dL 05/02/21 05:17 AST 152 units/L (5-40) H 05/03/21 04:52 ALT 127 units/L (7-56) H 05/03/21 04:52 Alkaline Phosphatase 85 units/L (35-129) 05/03/21 04:52 Total Creatine Kinase 189 units/L (30-135) H 05/02/21 05:53 Troponin T < 0.010 ng/mL (0.00-0.029) 05/02/21 05:16 NT-Pro-B Natriuret Pep 341.7 pg/mL (0-900) 05/02/21 05:17 Total Protein 8.6 g/dL (6.3-8.2) H 05/03/21 04:52 Albumin 2.6 g/dL (3.9-5) L 05/03/21 04:52 Albumin/Globulin Ratio 0.4 % 05/03/21 04:52 Procalcitonin 0.74 ng/mL (<0.15) 05/03/21 04:52 TSH 10.350 mlU/mL (0.270-4.200) H 05/02/21 06:41 Free T4 0.61 ng/dL (0.76-1.46) L 05/02/21 06:41 Coronavirus (PCR) Positive (Negative) A 05/03/21 Unknown Blood Type O POSITIVE 05/03/21 14:13 Antibody Screen Negative 05/03/21 14:13 Crossmatch See Detail 05/03/21 14:13 Microbiology: Microbiology 05/02/21 11:50 Sputum - Expectorated Sputum Sputum Culture - Preliminary 05/02/21 16:04 Peripheral/Venous Blood Culture - Preliminary NO GROWTH AFTER 24 HOURS 05/02/21 15:56 Peripheral/Venous Blood Culture - Preliminary NO GROWTH AFTER 24 HOURS Peoples/IV: Voiding Method Indwelling Catheter Active Medications - Current Medications Current Medications: Generic Name Dose Route Start Last Admin Trade Name Freq PRN Reason Stop Dose Admin Acetaminophen 650 mg 05/02/21 08:59 Acetaminophen 325 Mg/10.15 Ml Oral Liqd Unit Dose FEEDTUBE Q6H PRN Pain MILD(1-3)/Fever >100.5/[place] Albuterol/Ipratropium 1 ampul 05/02/21 10:00 05/04/21 10:46 Ipratropium/Albuterol Sulfate 3 Ml Ampul.Neb IH Not Given Q6HRT JHON Albuterol/Ipratropium 1 ampul 05/04/21 08:00 05/04/21 10:47 Ipratropium/Albuterol Sulfate 3 Ml Ampul.Neb IH Not Given TIDRT JHON Budesonide 0.5 mg 05/02/21 10:00 05/04/21 10:47 Budesonide 0.5 Mg/2 Ml Nebu IH Not Given Q12HRT JHON Dextrose 0 ml 05/03/21 11:20 05/03/21 17:02 Dextrose 10% *Hypoglycemia IV 100 ml PRN PRN Administration Hypoglycemia Dextrose 50 ml 05/03/21 21:52 Dextrose 50% In Water (25gm) 50 Ml Syringe IV Q30MIN PRN Hypoglycemia Protocol Docusate Sodium 100 mg 05/03/21 12:00 05/03/21 21:03 Docusate Sodium 100 Mg/10 Ml Oral Liqd PO 100 mg BID JHON Administration Enoxaparin Sodium 30 mg 05/02/21 10:00 05/04/21 10:16 Enoxaparin 30 Mg/0.3 Ml Inj SUB-Q 30 mg QDAY JHON Administration Famotidine 10 mg 05/02/21 10:00 05/04/21 10:17 Famotidine 20 Mg/2 Ml Inj IV 10 mg BID JHON Administration Fentanyl 50 mcg 05/03/21 11:30 05/04/21 03:02 Fentanyl 100 Mcg/2 Ml Inj IV 50 mcg Q10MIN PRN Administration ANALGESIA Hydrocortisone Sodium Succinate 50 mg 05/03/21 04:00 05/04/21 10:16 Hydrocortisone Sod Succ 100 Mg/2 Ml Vial IV 50 mg Q6H JHON Administration NORepinephrine/NS 8 MG-250 ML 8 mg in 250 mls @ 3.75 mls/hr 05/02/21 10:00 Norepinephrine/Ns 8 Mg-250 Ml (Double Conc) IV TITRATE JHON Protocol 2 MCG/MIN Dextrose/Sodium Chloride 1,000 mls @ 75 mls/hr 05/03/21 03:00 05/03/21 19:31 D5ns IV 75 mls/hr DIRECT JHON Administration Cefepime HCl 1 gm in 100 mls @ 200 mls/hr 05/03/21 22:00 05/03/21 21:11 Cefepime/Ns 1 Gm/100 Ml IV 200 mls/hr Q24H JHON Administration Protocol Fentanyl Citrate 2,000 mcg in 100 mls @ 2.397 mls/hr 05/03/21 12:00 05/03/21 17:32 Fentanyl Drip Premix IV 0 mcg/kg/hr TITR JHON 0 mls/hr Titration Protocol 1 MCG/KG/HR Dopamine HCl 800 mg/ Dextrose 250 mls @ 4.494 mls/hr 05/03/21 16:00 05/04/21 05:56 IV 05/04/21 14:44 2 mcg/kg/min TITR JHON 1.798 mls/hr Titration Protocol 5 MCG/KG/MIN Insulin Human Lispro 0 unit 05/03/21 22:00 05/04/21 05:00 Insulin Lispro 100 Unit/Ml SUB-Q Not Given Q4HR [facility]1983 Protocol Levothyroxine Sodium 25 mcg 05/02/21 06:00 05/04/21 05:58 Levothyroxine 100 Mcg Inj IV 25 mcg DAILY@0600 JHON Administration Metoclopramide HCl 5 mg 05/03/21 14:00 05/04/21 05:55 Metoclopramide 10 Mg/2 Ml Inj IV 05/04/21 14:01 5 mg Q8HR JHON Administration Morphine Sulfate 2 mg 05/02/21 08:59 Morphine 2 Mg/1 Ml Inj IV Q4H PRN Pain, Moderate (4-6) Ondansetron HCl 4 mg 05/02/21 08:59 Ondansetron 4 Mg/2 Ml Inj IV Q8H PRN Nausea And Vomiting Polyethylene Glycol 17 gm 05/03/21 12:00 05/04/21 10:16 Polyethylene Glycol 3350 17 Gm Powder PO 17 gm QDAY JHON Administration Senna 17.6 mg 05/03/21 12:00 05/04/21 10:16 Sennosides Oral Liqd 8.8 Mg/5 Ml Oral Liqd PO 17.6 mg Q12HR JHON Administration Sodium Chloride 10 ml 05/02/21 10:00 05/04/21 10:17 Sodium Chloride 0.9% 10 Ml Flush Syringe IV 10 ml BID JHON Administration Sodium Chloride 10 ml 05/02/21 08:59 Sodium Chloride 0.9% 10 Ml Flush Syringe IV PRN PRN LINE FLUSH Nutrition/Malnutrition Assess - Dietary Evaluation Nutrition/Malnutrition Findings: Nutrition Notes Start: 05/03/21 14:27 Freq: Status: Active Protocol: Document 05/03/21 14:28 [facility] (Rec: 05/03/21 14:43 [facility] [id number]) Nutrition Notes Need for Assessment generated from: MD Order,home theater expert,MST Initial or Follow up Assessment Current Diagnosis Hypertension,Respiratory Failure Other Pertinent Diagnosis AMS, Bradycardia Current Diet NPO Labs/Tests Na 129 K 6.2 BUN 25 Pertinent Medications Ca gluconate x 1 dose, D5NS at 75ml/hr, Colace, Solucortef, Reglan, Levophed gtt, Miralax, Senokot Height 5 ft 6 in Weight 47.94 kg [facility] Body Weight (kg) 59.09 BMI 17.0 Weight Status Underweight Subjective/Other Information RD consulted for TF; pt also screened for low BMI, malnutrition risk, chewing difficulty and skin risk ( Joby score: 16). Pt intubated. Burn Absent Trauma Absent GI Symptoms Constipation Skin Integrity/Comment No skin breakdown reported Minimum of two criteria No #1 Nutrition Diagnosis Inadequate oral intake Etiology mech ventilation As Evidenced by Signs and Symptoms pt NPO Is patient on ventilator? Yes Is Patient Ambulatory and/or Out of Bed No REE-([facility]-confined to bed) 1119.252 Kcal/Kg value to use for calculation 30 Approximate Energy Requirements Using 1438 kcal/Kg Calculation Used for Recommendations Kcal/kg Additional Notes Pro needs 1.2-2g/k-96g/ day Fluid needs per MD. Nutrition Intervention Nutrition Support: Osmolite 1.5 at 40ml/hr with 120ml water flush q4h. (provides 1344mg Na and 1728mg K) Kcal 1,440 Protein (gm) 60 Carbohydrates (gm) 195 Fat (gm) 47 Fluid (mL) 732 Fiber (gm) 0 Goal #1 TF tolerance Goal #2 TF to meet 100% energy and pro needs Goal #3 Wt maintenance and/or gain Anticipated Discharge Needs: Unable to identify Follow-Up By: 05/06/21 Additional Comments F/U: new TF, need for low K formula, Na lab
--- NOTE | 2021-05-04 17:47 | Progress Note ---
Assessment and Plan Acute Encephalopathy Acute Respiratory Failure COVID-19 Infection Symptomatic Bradycardia (TVP in situ) S/p PEA Arrest S/p Cardiogenic Shock Moderate MR MICHEAL Hyponatremia Hyperkalemia (resolved) Anemia Thrombocytopenia Elevated LFTs HTN Euthyroid Sick Syndrome Plan: Dopamine gtt discontinued this AM. Temporary pacemaker rate decreased to 50bpm. Continue tele monitoring. May be able to remove TVP tomorrow. Pt seen in conjunction with Dr. Salazar, who agrees with the assessment and plan of care. - Patient Problems (1) Symptomatic bradycardia Current Visit: Yes Status: Acute Subjective Date of service: 05/04/21 Principal diagnosis: Symptomatic Bradycardia Interval history: In SR in the 70bpm range on telemetry today. Objective Last Vital Signs Temp 98.4 F 05/04/21 16:00 Pulse 64 05/04/21 17:31 Resp 20 05/04/21 08:53 BP 159/66 05/04/21 17:31 Pulse Ox 99 05/04/21 17:31 - Physical Examination Cardiac: Positive: Reg Rate and Rhythm - Labs and Meds CBC 05/04/21 Range/Units 09:41 WBC 5.5 (4.5-11.0) K/mm3 RBC 2.28 L (3.65-5.03) M/mm3 Hgb 7.1 L (10.1-14.3) gm/dl Hct 21.4 L (30.3-42.9) % Plt Count 97 L (140-440) K/mm3 Lymph # (Auto) 0.6 L (1.2-5.4) K/mm3 [place] # (Auto) 0.3 (0.0-0.8) K/mm3 Eos # (Auto) 0.0 (0.0-0.4) K/mm3 Baso # (Auto) 0.0 (0.0-0.1) K/mm3 Comprehensive Metabolic Panel 05/03/21 05/04/21 Range/Units 20:07 09:41 Sodium 131 L 132 L (137-145) mmol/L Potassium 5.7 H 5.0 (3.6-5.0) mmol/L Chloride 97.7 L 98.7 (98-107) mmol/L Carbon Dioxide 21 L 21 L (22-30) mmol/L BUN 28 H 33 H (7-17) mg/dL Creatinine 1.4 H 1.4 H (0.6-1.2) mg/dL Glucose 130 H 143 H (65-100) mg/dL Calcium 8.8 9.3 (8.4-10.2) mg/dL - Imaging and Cardiology EKG: report reviewed, image reviewed Echo: report reviewed - Telemetry EKG Rhythm: Sinus Rhythm - EKG Sinus rhythms and dysrhythmias: sinus bradycardia Repolarization changes or abnormalities: nonspecific abnormality, ST segment, and/or T wave - Allied health notes Allied health notes reviewed: nursing
[2021-05-04] MEDS: fentaNYL DRIP Premix 2,000 MCG/100 ML BAG IV SCH (21:00)
[2021-05-04] MEDS: CEFEPIME/NS 1 GM/100 ML 1 GM/100 ML BAG IV SCH (21:11)
[2021-05-05] MEDS: INSULIN LISPRO 100 UNIT/ML SUB-Q SCH ×5 (01:35→22:00)
[2021-05-05] MEDS: HYDROCORTISONE SOD SUCC 100 MG/2 ML VIAL IV SCH ×4 (03:00→22:00)
[2021-05-05 03:42] LABS: ABG Base Excess -1.3 mmol/L (-2.0-3.0); ABG Methemoglobin 0.4 % (0.0-1.5); ABG Oxygen Saturation 98.3 % (95.0-99.0); ABG PCO2 43.2 mm Hg; ABG PH 7.362 pH Units (7.350-7.450); ABG PO2 123.1 mm Hg (80.0-90.0)
[2021-05-05] MEDS: LEVOTHYROXINE 100 MCG INJ IV SCH (05:07)
[2021-05-05 05:22] LABS: Hemoglobin 6.3 gm/dl (10.1-14.3); Mean Corpuscular HGB Conc 33 % (30-34); Mean Corpuscular Volume 94 fl (79-97); Red Blood Count 2.04 M/mm3 (3.65-5.03); Red Cell Distribution Width 18.3 % (13.2-15.2)
[2021-05-05 05:48] LABS: Calcium 9.5 mg/dL (8.4-10.2)
[2021-05-05 06:00] LABS: Hematocrit 19.1 % (30.3-42.9); Platelet Count 77 K/mm3 (140-440)
[2021-05-05] MEDS ORDERED: SODIUM CHLORIDE 0.9% 500 ML 500 ML IV ONE (06:07)
[2021-05-05] MEDS: IPRATROPIUM/ALBUTEROL SULFATE 3 ML AMPUL.NEB IH SCH ×3 (09:49→20:32)
[2021-05-05] MEDS: BUDESONIDE 0.5 MG/2 ML NEBU IH SCH ×2 (09:49→20:32)
[2021-05-05] MEDS: FAMOTIDINE 20 MG/2 ML INJ IV SCH ×2 (10:03→22:00)
[2021-05-05] MEDS: POLYETHYLENE GLYCOL 3350 17 GM POWDER PO SCH (10:03)
[2021-05-05] MEDS: SENNOSIDES ORAL LIQD 8.8 MG/5 ML ORAL LIQD PO SCH ×2 (10:03→22:00)
[2021-05-05] MEDS: DOCUSATE SODIUM 100 MG/10 ML ORAL LIQD PO SCH ×2 (10:03→22:00)
--- NOTE | 2021-05-05 11:24 | Progress Note ---
<DELANO DIAZ - Last Filed: 05/05/21 17:51> Assessment and Plan Assessment and plan: This is a 89-year-old female with known history of HTN, legally blind, and recent UTI initially admitted for bradycardia and AMS. Patient subsequently PEA arrested with ROSC in the ED was intubated and placed on ventilatory support. Th en was taken to [facility] for emergent transvenous pacemaker placement by Cardio. Hospital Course to Date: 05/03: s/p cardiac arrest, remains unresponsive, not on any sedation. +gag/cough and corneal reflex, pending CT head/brain. Patient H&H also dropped this am, 1unit of PRBCs ordered. Hyperkalemia was treated per protoocl, repeat BMP at 1600. BR was initiated for severe constipation, TF was initiated. 05/04: Patient is awake this am, following simple commands. Off dopamine gtt and Transvenous pacer at a back rate of 60. COVID PCR +, patient is on IV Abx and IV steroids. Awaiting cardio recommendation, if no plan for PPM insertion, plan for PST for possible extubation. 05/05: On sedation this am due to increase agitation. Patient failed SAT this am. 1unit ordered for low H&H this am with worsening in thrombocytopenia, AC held and stool occult ordered. Transvenous pacer still present at a back up rate of 50, patient SR on the monitor this am, HR in the 60s. Plan for possible TVP removal tomorrow by Cardio. Assessment and Plan #Acute Metabolic Encephalopathy - ddx: delirium from acute illness vs underlying psych - per family 2 wk history of odd behavior, mumbling, paranoid behavior - On sedation this am, still following commands this am - Titrate sedation for a RASS goal of 0 to -1 - CT head/Brain pending - Avoid benzodiazepine to reduce the possibility of delirium - PRN analgesia for CPOT greater than 3 - Maintenance of sleep-wake cycle #Symptomatic Bradycardia #PEA Arrest Status post ROSC #Cardiogenic Shock #H/o Hypertension - bradycardic [employer] 35bpm, given atropine x 1 with transient response - PEA arrested- CPR in ED s/p epi x 1, ROSC achieved - s/p transvenous pacemaker by cardiology, Pacer current on Back up rate of 50 - SR noted on the monitor, HR in the 60s - Dopamine gtt off - Cardiology on consult, appreciated recommendations - 05/02 ECHO- EF 65-70% - Continue blood pressure monitor per protocol - Maintain MAP above 65 Hold antihypertensive treatment for now - Plan for possible TVP removal tomorrow by Cardio. #Acute Hypoxic Respiratory Failure - Coded in the ED, intubated on 05/02 - Vent Setting:PRVC-30%,6,20,350 - This am ABG noted - COVID PCR pending - CCM consulted, appreciate recommendations - VAP bundle addressed - Aspiration precaution HOB above 30 - Daily SBT and SAT trials as tolerated - Daily ABG and CXR - Continue SPO2 monitoring for SPO2 goal above 92% #GI: Severe Constipation #Transaminitis - Abdominal distention noted - KUB with moderate to severe constipation - BR and reglan added - Will initiate eneteral feeding - On PPI - Presented with elevated LFTs, unclear etiology - Will continue to trend LFTs #Hyponatremia #Hyperkalemia-resolved - K and Na improving - Strict intake and output - Monitor and replace electrolytes as needed - Trend BMP #Euthyroid sick syndrome - The TFT pattern is not consistent with myxedema coma - levothyroxine 25 mcg IV - Recheck TFT's in 3-4 days #DVT prophylaxis - Lovenox 30 mg subq daily - SCDs to bilateral lower extremities while in bed Family contact: Cheko Aleena (grandson): [phone] - has requested you call him first. His Eng tavares is better and concerned mother might not catch everything. Hope Flood (daughter): [phone] The high probability of a clinically significant, sudden or life threatening deterioration of the [multi] system(s) required my full and direct attention, intervention and personal management. The aggregate critical care time was [60] minutes. This time is in addition to time spent performing reported procedures but includes the following: [x] Data Review and interpretation [x] Patient assessment and monitoring of vital signs [x] Documentation [x] Medication orders and management Disposition Plan: ICU Total Time Spent with Patient (Minutes): 60 History Interval history: Patient seen and examined at the bedside. Intubated and on sedation this am, RASS 0 to -1, still following simple commands. Per RN patient got really agitated and combative overnight and was placed on sedation. SAT attempted this am and patient failed due to increase agitation. TVP still in place at a back up rate of 50, HR is the 60s on the monitor this am. Hospitalist Physical - Constitutional Vitals: Temp Pulse Resp BP Pulse Ox 96.8 F L 68 20 142/62 100 05/05/21 10:02 05/05/21 10:02 05/05/21 10:02 05/05/21 10:02 05/05/21 10:02 General appearance: Present: no acute distress, other (Intubated and sedated) - EENT Eyes: Present: PERRL ENT: hearing intact - Neck Neck: Present: normal ROM - Respiratory Respiratory effort: normal Respiratory: bilateral: rhonchi - Cardiovascular Rhythm: regular Heart Sounds: Present: S1 & S2 - Extremities Extremities: no ischemia, pulses intact, pulses symmetrical Extremity abnormal: edema - Peripheral Assessment Generalized Edema Type: Non-pitting Edema Degree: 1+ Capillary Refill: < 3 seconds Skin Temperature: Warm Peripheral Pulses: within normal limits - Abdominal General gastrointestinal: soft, non-distended, normal bowel sounds - Integumentary Integumentary: Present: warm, dry - Psychiatric Psychiatric: other (Intubated and sedated) - Neurologic Neurologic: moves all extremities, other (On sedation, RASS 0 to -1, following simple commands) - Allied Health Allied health notes reviewed: nursing HEART Score - HEART Score Troponin: Troponin T < 0.010 ng/mL (0.00-0.029) 05/02/21 05:16 Results - Labs CBC & Chem 7: 05/05/21 04:35 05/05/21 04:35 Labs: Laboratory Last Values WBC 4.4 K/mm3 (4.5-11.0) L 05/05/21 04:35 RBC 2.04 M/mm3 (3.65-5.03) L 05/05/21 04:35 Hgb 6.3 gm/dl (10.1-14.3) L 05/05/21 04:35 Hct 19.1 % (30.3-42.9) L* 05/05/21 04:35 MCV 94 fl (79-97) 05/05/21 04:35 MCH 31 pg (28-32) 05/05/21 04:35 MCHC 33 % (30-34) 05/05/21 04:35 RDW 18.3 % (13.2-15.2) H 05/05/21 04:35 Plt Count 77 K/mm3 (140-440) L 05/05/21 04:35 Lymph % (Auto) 10.4 % (13.4-35.0) L 05/04/21 09:41 [place] % (Auto) 4.9 % (0.0-7.3) 05/04/21 09:41 Eos % (Auto) 0.0 % (0.0-4.3) 05/04/21 09:41 Baso % (Auto) 0.0 % (0.0-1.8) 05/04/21 09:41 Lymph # (Auto) 0.6 K/mm3 (1.2-5.4) L 05/04/21 09:41 [place] # (Auto) 0.3 K/mm3 (0.0-0.8) 05/04/21 09:41 Eos # (Auto) 0.0 K/mm3 (0.0-0.4) 05/04/21 09:41 Baso # (Auto) 0.0 K/mm3 (0.0-0.1) 05/04/21 09:41 Add Manual Diff Complete 05/03/21 04:52 Total Counted 100 05/03/21 04:52 Seg Neutrophils % 84.7 % (40.0-70.0) H 05/04/21 09:41 Seg Neuts % (Manual) 86.0 % (40.0-70.0) H 05/03/21 04:52 Band Neutrophils % 8.0 % 05/03/21 04:52 Lymphocytes % (Manual) 3.0 % (13.4-35.0) L 05/03/21 04:52 Reactive Lymphs % (Man) 0 % 05/03/21 04:52 Monocytes % (Manual) 2.0 % (0.0-7.3) 05/03/21 04:52 Eosinophils % (Manual) 1.0 % (0.0-4.3) 05/03/21 04:52 Basophils % (Manual) 0 % (0.0-1.8) 05/03/21 04:52 Metamyelocytes % 0 % 05/03/21 04:52 Myelocytes % 0 % 05/03/21 04:52 Promyelocytes % 0 % 05/03/21 04:52 Blast Cells % 0 % 05/03/21 04:52 Nucleated RBC % Not Reportable 05/03/21 04:52 Seg Neutrophils # 4.6 K/mm3 (1.8-7.7) 05/04/21 09:41 Seg Neutrophils # Man 3.9 K/mm3 (1.8-7.7) 05/03/21 04:52 Band Neutrophils # 0.4 K/mm3 05/03/21 04:52 Lymphocytes # (Manual) 0.1 K/mm3 (1.2-5.4) L 05/03/21 04:52 Abs React Lymphs (Man) 0.0 K/mm3 05/03/21 04:52 Monocytes # (Manual) 0.1 K/mm3 (0.0-0.8) 05/03/21 04:52 Eosinophils # (Manual) 0.0 K/mm3 (0.0-0.4) 05/03/21 04:52 Basophils # (Manual) 0.0 K/mm3 (0.0-0.1) 05/03/21 04:52 Metamyelocytes # 0.0 K/mm3 05/03/21 04:52 Myelocytes # 0.0 K/mm3 05/03/21 04:52 Promyelocytes # 0.0 K/mm3 05/03/21 04:52 Blast Cells # 0.0 K/mm3 05/03/21 04:52 WBC Morphology Not Reportable 05/03/21 04:52 Hypersegmented Neuts Not Reportable 05/03/21 04:52 Hyposegmented Neuts Not Reportable 05/03/21 04:52 Hypogranular Neuts Not Reportable 05/03/21 04:52 Smudge Cells Not Reportable 05/03/21 04:52 Toxic Granulation Not Reportable 05/03/21 04:52 Toxic Vacuolation Not Reportable 05/03/21 04:52 Dohle Bodies Not Reportable 05/03/21 04:52 Pelger-Huet Anomaly Not Reportable 05/03/21 04:52 Shanti Rods Not Reportable 05/03/21 04:52 Platelet Estimate Consistent w auto 05/03/21 04:52 Clumped Platelets Not Reportable 05/03/21 04:52 Plt Clumps, EDTA Not Reportable 05/03/21 04:52 Large Platelets Not Reportable 05/03/21 04:52 Giant Platelets Not Reportable 05/03/21 04:52 Platelet Satelliting Not Reportable 05/03/21 04:52 Plt Morphology Comment Not Reportable 05/03/21 04:52 RBC Morphology Not Reportable 05/03/21 04:52 Dimorphic RBCs Not Reportable 05/03/21 04:52 Polychromasia Not Reportable 05/03/21 04:52 Hypochromasia 2+ 05/03/21 04:52 Poikilocytosis Not Reportable 05/03/21 04:52 Anisocytosis 1+ 05/03/21 04:52 Microcytosis Not Reportable 05/03/21 04:52 Macrocytosis Few 05/03/21 04:52 Spherocytes Not Reportable 05/03/21 04:52 Pappenheimer Bodies Not Reportable 05/03/21 04:52 Sickle Cells Not Reportable 05/03/21 04:52 Target Cells Not Reportable 05/03/21 04:52 Tear Drop Cells Not Reportable 05/03/21 04:52 Ovalocytes Few 05/03/21 04:52 Helmet Cells Not Reportable 05/03/21 04:52 [place] Bodies Not Reportable 05/03/21 04:52 [place] Rings Not Reportable 05/03/21 04:52 [place] Cells Not Reportable 05/03/21 04:52 Bite Cells Not Reportable 05/03/21 04:52 Crenated Cell Not Reportable 05/03/21 04:52 Elliptocytes Not Reportable 05/03/21 04:52 Acanthocytes (Spur) Not Reportable 05/03/21 04:52 Rouleaux Not Reportable 05/03/21 04:52 Hemoglobin C Crystals Not Reportable 05/03/21 04:52 Schistocytes Not Reportable 05/03/21 04:52 Malaria parasites Not Reportable 05/03/21 04:52 Anatoly Bodies Not Reportable 05/03/21 04:52 Hem Pathologist Commnt No 05/03/21 04:52 PT 15.1 Sec. (12.2-14.9) H 05/02/21 05:16 INR 1.07 (0.87-1.13) 05/02/21 05:16 APTT 41.7 Sec. (24.2-36.6) H 05/02/21 05:16 ABG pH 7.362 pH Units (7.350-7.450) 05/05/21 02:30 ABG pCO2 43.2 mm Hg 05/05/21 02:30 ABG pO2 123.1 mm Hg (80.0-90.0) H 05/05/21 02:30 ABG HCO3 24.0 mmol/L (20.0-26.0) 05/05/21 02:30 ABG O2 Saturation 98.3 % (95.0-99.0) 05/05/21 02:30 ABG O2 Content 8.3 (0.0-44) 05/05/21 02:30 ABG Base Excess -1.3 mmol/L (-2.0-3.0) 05/05/21 02:30 ABG Hemoglobin 5.9 gm/dl (12.0-16.0) L 05/05/21 02:30 ABG Carboxyhemoglobin 1.5 % (0.0-5.0) 05/05/21 02:30 ABG Methemoglobin 0.4 % (0.0-1.5) 05/05/21 02:30 Oxyhemoglobin 96.5 % (95.0-99.0) 05/05/21 02:30 FiO2 30 % 05/05/21 02:30 Sodium 131 mmol/L (137-145) L 05/05/21 04:35 Potassium 4.7 mmol/L (3.6-5.0) 05/05/21 04:35 Chloride 98.7 mmol/L (98-107) 05/05/21 04:35 Carbon Dioxide 21 mmol/L (22-30) L 05/05/21 04:35 Anion Gap 16 mmol/L 05/05/21 04:35 BUN 31 mg/dL (7-17) H 05/05/21 04:35 Creatinine 1.1 mg/dL (0.6-1.2) 05/05/21 04:35 Estimated GFR 57 ml/min 05/05/21 04:35 BUN/Creatinine Ratio 28 % 05/05/21 04:35 Glucose 158 mg/dL (65-100) H 05/05/21 04:35 POC Glucose 152 mg/dL (70-105) H 05/05/21 07:20 Lactic Acid 0.80 mmol/L (0.7-2.0) 05/02/21 05:53 Calcium 9.5 mg/dL (8.4-10.2) 05/05/21 04:35 Phosphorus 3.80 mg/dL (2.5-4.5) 05/05/21 04:35 Magnesium 2.40 mg/dL (1.7-2.3) H 05/05/21 04:35 Total Bilirubin < 0.20 mg/dL (0.1-1.2) 05/03/21 04:52 Direct Bilirubin < 0.2 mg/dL (0-0.2) 05/02/21 05:17 Indirect Bilirubin 0.0 mg/dL 05/02/21 05:17 AST 152 units/L (5-40) H 05/03/21 04:52 ALT 127 units/L (7-56) H 05/03/21 04:52 Alkaline Phosphatase 85 units/L (35-129) 05/03/21 04:52 Total Creatine Kinase 189 units/L (30-135) H 05/02/21 05:53 Troponin T < 0.010 ng/mL (0.00-0.029) 05/02/21 05:16 NT-Pro-B Natriuret Pep 341.7 pg/mL (0-900) 05/02/21 05:17 Total Protein 8.6 g/dL (6.3-8.2) H 05/03/21 04:52 Albumin 2.6 g/dL (3.9-5) L 05/03/21 04:52 Albumin/Globulin Ratio 0.4 % 05/03/21 04:52 Procalcitonin 0.74 ng/mL (<0.15) 05/03/21 04:52 TSH 10.350 mlU/mL (0.270-4.200) H 05/02/21 06:41 Free T4 0.61 ng/dL (0.76-1.46) L 05/02/21 06:41 Coronavirus (PCR) Positive (Negative) A 05/03/21 Unknown Blood Type O POSITIVE 05/03/21 14:13 Antibody Screen Negative 05/03/21 14:13 Crossmatch See Detail 05/03/21 14:13 Microbiology: Microbiology 05/02/21 16:04 Peripheral/Venous Blood Culture - Preliminary NO GROWTH AFTER 48 HOURS 05/02/21 15:56 Peripheral/Venous Blood Culture - Preliminary NO GROWTH AFTER 48 HOURS 05/02/21 11:50 Sputum - Expectorated Sputum Sputum Culture - Final Peoples/IV: Voiding Method Indwelling Catheter Active Medications - Current Medications Current Medications: Generic Name Dose Route Start Last Admin Trade Name Freq PRN Reason Stop Dose Admin Acetaminophen 650 mg 05/02/21 08:59 Acetaminophen 325 Mg/10.15 Ml Oral Liqd Unit Dose FEEDTUBE Q6H PRN Pain MILD(1-3)/Fever >100.5/[place] Albuterol/Ipratropium 1 ampul 05/04/21 08:00 05/05/21 09:49 Ipratropium/Albuterol Sulfate 3 Ml Ampul.Neb IH 1 ampul TIDRT JHON Administration Budesonide 0.5 mg 05/02/21 10:00 05/05/21 09:49 Budesonide 0.5 Mg/2 Ml Nebu IH 0.5 mg Q12HRT JHON Administration Dextrose 0 ml 05/03/21 11:20 05/03/21 17:02 Dextrose 10% *Hypoglycemia IV 100 ml PRN PRN Administration Hypoglycemia Docusate Sodium 100 mg 05/03/21 12:00 05/05/21 10:03 Docusate Sodium 100 Mg/10 Ml Oral Liqd PO 100 mg BID JHON Administration Famotidine 10 mg 05/02/21 10:00 05/05/21 10:03 Famotidine 20 Mg/2 Ml Inj IV 10 mg BID JHON Administration Fentanyl 50 mcg 05/03/21 11:30 05/04/21 18:18 Fentanyl 100 Mcg/2 Ml Inj IV 50 mcg Q10MIN PRN Administration ANALGESIA Hydrocortisone Sodium Succinate 50 mg 05/03/21 04:00 05/05/21 03:00 Hydrocortisone Sod Succ 100 Mg/2 Ml Vial IV 50 mg Q6H JHON Administration NORepinephrine/NS 8 MG-250 ML 8 mg in 250 mls @ 3.75 mls/hr 05/02/21 10:00 Norepinephrine/Ns 8 Mg-250 Ml (Double Conc) IV TITRATE JHON Protocol 2 MCG/MIN Dextrose/Sodium Chloride 1,000 mls @ 75 mls/hr 05/03/21 03:00 05/03/21 19:31 D5ns IV 75 mls/hr DIRECT JHON Administration Fentanyl Citrate 2,000 mcg in 100 mls @ 2.397 mls/hr 05/03/21 12:00 05/05/21 04:21 Fentanyl Drip Premix IV 0 mcg/kg/hr TITR JHON 0 mls/hr Titration Protocol 1 MCG/KG/HR Propofol 1,000 mg in 100 mls @ 1.438 mls/hr 05/04/21 22:00 05/04/21 23:51 Diprivan 10 Mg/Ml IV 15 mcg/kg/min TITR JHON 4.315 mls/hr Titration Protocol 5 MCG/KG/MIN Cefepime HCl 1 gm in 100 mls @ 200 mls/hr 05/05/21 12:00 Cefepime/Ns 1 Gm/100 Ml IV Q12H [facility] Protocol Insulin Human Lispro 0 unit 05/03/21 22:00 05/05/21 06:18 Insulin Lispro 100 Unit/Ml SUB-Q 1 unit Q4HR JHON Administration Protocol Levothyroxine Sodium 25 mcg 05/02/21 06:00 05/05/21 05:07 Levothyroxine 100 Mcg Inj IV 25 mcg DAILY@0600 [facility] Administration Morphine Sulfate 2 mg 05/02/21 08:59 Morphine 2 Mg/1 Ml Inj IV Q4H PRN Pain, Moderate (4-6) Ondansetron HCl 4 mg 05/02/21 08:59 Ondansetron 4 Mg/2 Ml Inj IV Q8H PRN Nausea And Vomiting Polyethylene Glycol 17 gm 05/03/21 12:00 05/05/21 10:03 Polyethylene Glycol 3350 17 Gm Powder PO 17 gm QDAY JHON Administration Senna 17.6 mg 05/03/21 12:00 05/05/21 10:03 Sennosides Oral Liqd 8.8 Mg/5 Ml Oral Liqd PO 17.6 mg Q12HR JHON Administration Sodium Chloride 10 ml 05/02/21 10:00 05/04/21 21:12 Sodium Chloride 0.9% 10 Ml Flush Syringe IV 10 ml BID JHON Administration Sodium Chloride 10 ml 05/02/21 08:59 Sodium Chloride 0.9% 10 Ml Flush Syringe IV PRN PRN LINE FLUSH Nutrition/Malnutrition Assess - Dietary Evaluation Nutrition/Malnutrition Findings: Nutrition Notes Start: 05/03/21 14:27 Freq: Status: Active Protocol: Document 05/03/21 14:28 MEKA (Rec: 05/03/21 14:43 [facility] [id number]) Nutrition Notes Need for Assessment generated from: MD Order,equine dentist,MST Initial or Follow up Assessment Current Diagnosis Hypertension,Respiratory Failure Other Pertinent Diagnosis AMS, Bradycardia Current Diet NPO Labs/Tests Na 129 K 6.2 BUN 25 Pertinent Medications Ca gluconate x 1 dose, D5NS at 75ml/hr, Colace, Solucortef, Reglan, Levophed gtt, Miralax, Senokot Height 5 ft 6 in Weight 47.94 kg [place] Body Weight (kg) 59.09 BMI 17.0 Weight Status Underweight Subjective/Other Information RD consulted for TF; pt also screened for low BMI, malnutrition risk, chewing difficulty and skin risk ( Joby score: 16). Pt intubated. Burn Absent Trauma Absent GI Symptoms Constipation Skin Integrity/Comment No skin breakdown reported Minimum of two criteria No #1 Nutrition Diagnosis Inadequate oral intake Etiology mech ventilation As Evidenced by Signs and Symptoms pt NPO Is patient on ventilator? Yes Is Patient Ambulatory and/or Out of Bed No REE-([facility]-confined to bed) 1119.252 Kcal/Kg value to use for calculation 30 Approximate Energy Requirements Using 1438 kcal/Kg Calculation Used for Recommendations Kcal/kg Additional Notes Pro needs 1.2-2g/k-96g/ day Fluid needs per MD. Nutrition Intervention Nutrition Support: Osmolite 1.5 at 40ml/hr with 120ml water flush q4h. (provides 1344mg Na and 1728mg K) Kcal 1,440 Protein (gm) 60 Carbohydrates (gm) 195 Fat (gm) 47 Fluid (mL) 732 Fiber (gm) 0 Goal #1 TF tolerance Goal #2 TF to meet 100% energy and pro needs Goal #3 Wt maintenance and/or gain Anticipated Discharge Needs: Unable to identify Follow-Up By: 05/06/21 Additional Comments F/U: new TF, need for low K formula, Na lab <SHERYL WHITEHEAD - Last Filed: 05/06/21 07:15> Assessment and Plan Assessment and plan: I saw and evaluated the patient. I agree with the findings and the plan of care as documented in the Nurse Practitioner's~note, with the following corrections and additions. Hospitalist Physical - Constitutional Vitals: Temp Pulse Resp BP Pulse Ox 99 F 83 24 171/64 100 05/06/21 06:47 05/06/21 06:30 05/06/21 04:00 05/06/21 06:30 05/06/21 06:30 HEART Score - HEART Score Troponin: Troponin T < 0.010 ng/mL (0.00-0.029) 05/02/21 05:16 Results - Labs CBC & Chem 7: 05/05/21 04:35 05/06/21 04:56 Labs: Laboratory Last Values WBC 4.4 K/mm3 (4.5-11.0) L 05/05/21 04:35 RBC 2.04 M/mm3 (3.65-5.03) L 05/05/21 04:35 Hgb 6.3 gm/dl (10.1-14.3) L 05/05/21 04:35 Hct 19.1 % (30.3-42.9) L* 05/05/21 04:35 MCV 94 fl (79-97) 05/05/21 04:35 MCH 31 pg (28-32) 05/05/21 04:35 MCHC 33 % (30-34) 05/05/21 04:35 RDW 18.3 % (13.2-15.2) H 05/05/21 04:35 Plt Count 77 K/mm3 (140-440) L 05/05/21 04:35 Lymph % (Auto) 10.4 % (13.4-35.0) L 05/04/21 09:41 [place] % (Auto) 4.9 % (0.0-7.3) 05/04/21 09:41 Eos % (Auto) 0.0 % (0.0-4.3) 05/04/21 09:41 Baso % (Auto) 0.0 % (0.0-1.8) 05/04/21 09:41 Lymph # (Auto) 0.6 K/mm3 (1.2-5.4) L 05/04/21 09:41 [place] # (Auto) 0.3 K/mm3 (0.0-0.8) 05/04/21 09:41 Eos # (Auto) 0.0 K/mm3 (0.0-0.4) 05/04/21 09:41 Baso # (Auto) 0.0 K/mm3 (0.0-0.1) 05/04/21 09:41 Add Manual Diff Complete 05/03/21 04:52 Total Counted 100 05/03/21 04:52 Seg Neutrophils % 84.7 % (40.0-70.0) H 05/04/21 09:41 Seg Neuts % (Manual) 86.0 % (40.0-70.0) H 05/03/21 04:52 Band Neutrophils % 8.0 % 05/03/21 04:52 Lymphocytes % (Manual) 3.0 % (13.4-35.0) L 05/03/21 04:52 Reactive Lymphs % (Man) 0 % 05/03/21 04:52 Monocytes % (Manual) 2.0 % (0.0-7.3) 05/03/21 04:52 Eosinophils % (Manual) 1.0 % (0.0-4.3) 05/03/21 04:52 Basophils % (Manual) 0 % (0.0-1.8) 05/03/21 04:52 Metamyelocytes % 0 % 05/03/21 04:52 Myelocytes % 0 % 05/03/21 04:52 Promyelocytes % 0 % 05/03/21 04:52 Blast Cells % 0 % 05/03/21 04:52 Nucleated RBC % Not Reportable 05/03/21 04:52 Seg Neutrophils # 4.6 K/mm3 (1.8-7.7) 05/04/21 09:41 Seg Neutrophils # Man 3.9 K/mm3 (1.8-7.7) 05/03/21 04:52 Band Neutrophils # 0.4 K/mm3 05/03/21 04:52 Lymphocytes # (Manual) 0.1 K/mm3 (1.2-5.4) L 05/03/21 04:52 Abs React Lymphs (Man) 0.0 K/mm3 05/03/21 04:52 Monocytes # (Manual) 0.1 K/mm3 (0.0-0.8) 05/03/21 04:52 Eosinophils # (Manual) 0.0 K/mm3 (0.0-0.4) 05/03/21 04:52 Basophils # (Manual) 0.0 K/mm3 (0.0-0.1) 05/03/21 04:52 Metamyelocytes # 0.0 K/mm3 05/03/21 04:52 Myelocytes # 0.0 K/mm3 05/03/21 04:52 Promyelocytes # 0.0 K/mm3 05/03/21 04:52 Blast Cells # 0.0 K/mm3 05/03/21 04:52 WBC Morphology Not Reportable 05/03/21 04:52 Hypersegmented Neuts Not Reportable 05/03/21 04:52 Hyposegmented Neuts Not Reportable 05/03/21 04:52 Hypogranular Neuts Not Reportable 05/03/21 04:52 Smudge Cells Not Reportable 05/03/21 04:52 Toxic Granulation Not Reportable 05/03/21 04:52 Toxic Vacuolation Not Reportable 05/03/21 04:52 Dohle Bodies Not Reportable 05/03/21 04:52 Pel[place]uet Anomaly Not Reportable 05/03/21 04:52 Shanti Rods Not Reportable 05/03/21 04:52 Platelet Estimate Consistent w auto 05/03/21 04:52 Clumped Platelets Not Reportable 05/03/21 04:52 Plt Clumps, EDTA Not Reportable 05/03/21 04:52 Large Platelets Not Reportable 05/03/21 04:52 Giant Platelets Not Reportable 05/03/21 04:52 Platelet Satelliting Not Reportable 05/03/21 04:52 Plt Morphology Comment Not Reportable 05/03/21 04:52 RBC Morphology Not Reportable 05/03/21 04:52 Dimorphic RBCs Not Reportable 05/03/21 04:52 Polychromasia Not Reportable 05/03/21 04:52 Hypochromasia 2+ 05/03/21 04:52 Poikilocytosis Not Reportable 05/03/21 04:52 Anisocytosis 1+ 05/03/21 04:52 Microcytosis Not Reportable 05/03/21 04:52 Macrocytosis Few 05/03/21 04:52 Spherocytes Not Reportable 05/03/21 04:52 Pappenheimer Bodies Not Reportable 05/03/21 04:52 Sickle Cells Not Reportable 05/03/21 04:52 Target Cells Not Reportable 05/03/21 04:52 Tear Drop Cells Not Reportable 05/03/21 04:52 Ovalocytes Few 05/03/21 04:52 Helmet Cells Not Reportable 05/03/21 04:52 [place] Bodies Not Reportable 05/03/21 04:52 [place] Rings Not Reportable 05/03/21 04:52 [place] Cells Not Reportable 05/03/21 04:52 Bite Cells Not Reportable 05/03/21 04:52 Crenated Cell Not Reportable 05/03/21 04:52 Elliptocytes Not Reportable 05/03/21 04:52 Acanthocytes (Spur) Not Reportable 05/03/21 04:52 Rouleaux Not Reportable 05/03/21 04:52 Hemoglobin C Crystals Not Reportable 05/03/21 04:52 Schistocytes Not Reportable 05/03/21 04:52 Malaria parasites Not Reportable 05/03/21 04:52 Anatoly Bodies Not Reportable 05/03/21 04:52 Hem Pathologist Commnt No 05/03/21 04:52 PT 15.1 Sec. (12.2-14.9) H 05/02/21 05:16 INR 1.07 (0.87-1.13) 05/02/21 05:16 APTT 41.7 Sec. (24.2-36.6) H 05/02/21 05:16 ABG pH 7.362 pH Units (7.350-7.450) 05/05/21 02:30 ABG pCO2 43.2 mm Hg 05/05/21 02:30 ABG pO2 123.1 mm Hg (80.0-90.0) H 05/05/21 02:30 ABG HCO3 24.0 mmol/L (20.0-26.0) 05/05/21 02:30 ABG O2 Saturation 98.3 % (95.0-99.0) 05/05/21 02:30 ABG O2 Content 8.3 (0.0-44) 05/05/21 02:30 ABG Base Excess -1.3 mmol/L (-2.0-3.0) 05/05/21 02:30 ABG Hemoglobin 5.9 gm/dl (12.0-16.0) L 05/05/21 02:30 ABG Carboxyhemoglobin 1.5 % (0.0-5.0) 05/05/21 02:30 ABG Methemoglobin 0.4 % (0.0-1.5) 05/05/21 02:30 Oxyhemoglobin 96.5 % (95.0-99.0) 05/05/21 02:30 FiO2 30 % 05/05/21 02:30 Sodium 134 mmol/L (137-145) L 05/06/21 04:56 Potassium 5.1 mmol/L (3.6-5.0) H 05/06/21 04:56 Chloride 98.6 mmol/L (98-107) 05/06/21 04:56 Carbon Dioxide 24 mmol/L (22-30) 05/06/21 04:56 Anion Gap 17 mmol/L 05/06/21 04:56 BUN 30 mg/dL (7-17) H 05/06/21 04:56 Creatinine 1.0 mg/dL (0.6-1.2) 05/06/21 04:56 Estimated GFR > 60 ml/min 05/06/21 04:56 BUN/Creatinine Ratio 30 % 05/06/21 04:56 Glucose 133 mg/dL (65-100) H 05/06/21 04:56 POC Glucose 120 mg/dL (70-105) H 05/06/21 05:37 Lactic Acid 0.80 mmol/L (0.7-2.0) 05/02/21 05:53 Calcium 9.4 mg/dL (8.4-10.2) 05/06/21 04:56 Phosphorus 2.90 mg/dL (2.5-4.5) D 05/06/21 04:56 Magnesium 2.30 mg/dL (1.7-2.3) 05/06/21 04:56 Total Bilirubin 0.20 mg/dL (0.1-1.2) 05/05/21 04:35 Direct Bilirubin < 0.2 mg/dL (0-0.2) 05/05/21 04:35 Indirect Bilirubin 0.0 mg/dL 05/05/21 04:35 AST 54 units/L (5-40) H 05/05/21 04:35 ALT 70 units/L (7-56) H 05/05/21 04:35 Alkaline Phosphatase 96 units/L (35-129) 05/05/21 04:35 Total Creatine Kinase 189 units/L (30-135) H 05/02/21 05:53 Troponin T < 0.010 ng/mL (0.00-0.029) 05/02/21 05:16 NT-Pro-B Natriuret Pep 341.7 pg/mL (0-900) 05/02/21 05:17 Total Protein 8.4 g/dL (6.3-8.2) H 05/05/21 04:35 Albumin 2.5 g/dL (3.9-5) L 05/05/21 04:35 Albumin/Globulin Ratio 0.4 % 05/05/21 04:35 Procalcitonin 0.74 ng/mL (<0.15) 05/03/21 04:52 TSH 10.350 mlU/mL (0.270-4.200) H 05/02/21 06:41 Free T4 0.61 ng/dL (0.76-1.46) L 05/02/21 06:41 Coronavirus (PCR) Positive (Negative) A 05/03/21 Unknown Blood Type O POSITIVE 05/03/21 14:13 Antibody Screen Negative 05/03/21 14:13 Crossmatch See Detail 05/03/21 14:13 Microbiology: Microbiology 05/02/21 16:04 Peripheral/Venous Blood Culture - Preliminary NO GROWTH AFTER 72 HOURS 05/02/21 15:56 Peripheral/Venous Blood Culture - Preliminary NO GROWTH AFTER 72 HOURS Peoples/IV: Voiding Method Indwelling Catheter Active Medications - Current Medications Current Medications: Generic Name Dose Route Start Last Admin Trade Name Freq PRN Reason Stop Dose Admin Acetaminophen 650 mg 05/02/21 08:59 Acetaminophen 325 Mg/10.15 Ml Oral Liqd Unit Dose FEEDTUBE Q6H PRN Pain MILD(1-3)/Fever >100.5/[place] Albuterol/Ipratropium 1 ampul 05/04/21 08:00 05/05/21 20:32 Ipratropium/Albuterol Sulfate 3 Ml Ampul.Neb IH 1 ampul TIDRT JHON Administration Budesonide 0.5 mg 05/02/21 10:00 05/05/21 20:32 Budesonide 0.5 Mg/2 Ml Nebu IH 0.5 mg Q12HRT JHON Administration Dextrose 0 ml 05/03/21 11:20 05/03/21 17:02 Dextrose 10% *Hypoglycemia IV 100 ml PRN PRN Administration Hypoglycemia Docusate Sodium 100 mg 05/03/21 12:00 05/05/21 22:00 Docusate Sodium 100 Mg/10 Ml Oral Liqd PO 100 mg BID JHON Administration Famotidine 10 mg 05/02/21 10:00 05/05/21 22:00 Famotidine 20 Mg/2 Ml Inj IV 10 mg BID JHON Administration Fentanyl 50 mcg 05/03/21 11:30 05/04/21 18:18 Fentanyl 100 Mcg/2 Ml Inj IV 50 mcg Q10MIN PRN Administration ANALGESIA Hydrocortisone Sodium Succinate 50 mg 05/03/21 04:00 05/06/21 05:09 Hydrocortisone Sod Succ 100 Mg/2 Ml Vial IV 50 mg Q6H JHON Administration NORepinephrine/NS 8 MG-250 ML 8 mg in 250 mls @ 3.75 mls/hr 05/02/21 10:00 Norepinephrine/Ns 8 Mg-250 Ml (Double Conc) IV TITRATE JHON Protocol 2 MCG/MIN Dextrose/Sodium Chloride 1,000 mls @ 75 mls/hr 05/03/21 03:00 05/03/21 19:31 D5ns IV 75 mls/hr DIRECT JHON Administration Fentanyl Citrate 2,000 mcg in 100 mls @ 2.397 mls/hr 05/03/21 12:00 05/05/21 10:30 Fentanyl Drip Premix IV 0 mcg/kg/hr TITR JHON 0 mls/hr Titration Protocol 1 MCG/KG/HR Propofol 1,000 mg in 100 mls @ 1.438 mls/hr 05/04/21 22:00 05/06/21 06:44 Diprivan 10 Mg/Ml IV 25 mcg/kg/min TITR JHON 7.191 mls/hr Administration Protocol 5 MCG/KG/MIN Cefepime HCl 1 gm in 100 mls @ 200 mls/hr 05/05/21 12:00 05/06/21 06:43 Cefepime/Ns 1 Gm/100 Ml IV 200 mls/hr Q12H JHON Administration Protocol Insulin Human Lispro 0 unit 05/03/21 22:00 05/06/21 06:42 Insulin Lispro 100 Unit/Ml SUB-Q Not Given Q4HR [facility] Protocol Levothyroxine Sodium 25 mcg 05/02/21 06:00 05/06/21 06:41 Levothyroxine 100 Mcg Inj IV 25 mcg DAILY@0600 JHON Administration Morphine Sulfate 2 mg 05/02/21 08:59 Morphine 2 Mg/1 Ml Inj IV Q4H PRN Pain, Moderate (4-6) Ondansetron HCl 4 mg 05/02/21 08:59 Ondansetron 4 Mg/2 Ml Inj IV Q8H PRN Nausea And Vomiting Polyethylene Glycol 17 gm 05/03/21 12:00 05/05/21 10:03 Polyethylene Glycol 3350 17 Gm Powder PO 17 gm QDAY JHON Administration Senna 17.6 mg 05/03/21 12:00 05/05/21 22:00 Sennosides Oral Liqd 8.8 Mg/5 Ml Oral Liqd PO 17.6 mg Q12HR JHON Administration Sodium Chloride 10 ml 05/02/21 10:00 05/05/21 22:00 Sodium Chloride 0.9% 10 Ml Flush Syringe IV 10 ml BID JHON Administration Sodium Chloride 10 ml 05/02/21 08:59 Sodium Chloride 0.9% 10 Ml Flush Syringe IV PRN PRN LINE FLUSH Nutrition/Malnutrition Assess - Dietary Evaluation Nutrition/Malnutrition Findings: Nutrition Notes Start: 05/03/21 14:27 Freq: Status: Active Protocol: Document 05/03/21 14:28 MEKA (Rec: 05/03/21 14:43 MEKA [id number]) Nutrition Notes Need for Assessment generated from: MD Order,equine dentist,MST Initial or Follow up Assessment Current Diagnosis Hypertension,Respiratory Failure Other Pertinent Diagnosis AMS, Bradycardia Current Diet NPO Labs/Tests Na 129 K 6.2 BUN 25 Pertinent Medications Ca gluconate x 1 dose, D5NS at 75ml/hr, Colace, Solucortef, Reglan, Levophed gtt, Miralax, Senokot Height 5 ft 6 in Weight 47.94 kg [place] Body Weight (kg) 59.09 BMI 17.0 Weight Status Underweight Subjective/Other Information RD consulted for TF; pt also screened for low BMI, malnutrition risk, chewing difficulty and skin risk ( Joby score: 16). Pt intubated. Burn Absent Trauma Absent GI Symptoms Constipation Skin Integrity/Comment No skin breakdown reported Minimum of two criteria No #1 Nutrition Diagnosis Inadequate oral intake Etiology mech ventilation As Evidenced by Signs and Symptoms pt NPO Is patient on ventilator? Yes Is Patient Ambulatory and/or Out of Bed No REE-([facility]-confined to bed) 1119.252 Kcal/Kg value to use for calculation 30 Approximate Energy Requirements Using 1438 kcal/Kg Calculation Used for Recommendations Kcal/kg Additional Notes Pro needs 1.2-2g/k-96g/ day Fluid needs per MD. Nutrition Intervention Nutrition Support: Osmolite 1.5 at 40ml/hr with 120ml water flush q4h. (provides 1344mg Na and 1728mg K) Kcal 1,440 Protein (gm) 60 Carbohydrates (gm) 195 Fat (gm) 47 Fluid (mL) 732 Fiber (gm) 0 Goal #1 TF tolerance Goal #2 TF to meet 100% energy and pro needs Goal #3 Wt maintenance and/or gain Anticipated Discharge Needs: Unable to identify Follow-Up By: 05/06/21 Additional Comments F/U: new TF, need for low K formula, Na lab
[2021-05-05 12:07] LABS: Alanine Aminotransferase 70 units/L (7-56); Albumin 2.5 g/dL (3.9-5)
[2021-05-05 12:46] LABS: Bilirubin,Direct < 0.2 mg/dL (0-0.2)
[2021-05-05] MEDS: CEFEPIME/NS 1 GM/100 ML 1 GM/100 ML BAG IV SCH (17:32)
--- NOTE | 2021-05-05 18:34 | Progress Note ---
Assessment and Plan Acute Encephalopathy Acute Respiratory Failure COVID-19 Infection Symptomatic Bradycardia (TVP in situ) S/p PEA Arrest S/p Cardiogenic Shock Moderate MR MICHEAL (resolved) Hyponatremia Hyperkalemia (resolved) Anemia Thrombocytopenia Elevated LFTs HTN Euthyroid Sick Syndrome Plan: Dopamine gtt discontinued yesterday. Temporary pacemaker rate @ 50bpm. Not capturing. In SR 60-70s on tele. May start Hydralazine for BP optimization if needed. Possible TVP removal in the next 1-2 days when clinically stable. Pt seen in conjunction with Dr. Salazar, who agrees with the assessment and plan of care. - Patient Problems (1) Symptomatic bradycardia Current Visit: Yes Status: Acute Subjective Date of service: 05/05/21 Principal diagnosis: Symptomatic Bradycardia Interval history: On sedation for agitation today. Drop in Hgb/Plts noted. Remains in SR 60-70s on tele. Pacer not capturing. Objective Last Vital Signs Temp 97.9 F 05/05/21 12:00 Pulse 68 05/05/21 16:10 Resp 24 05/05/21 16:00 BP 154/61 05/05/21 16:10 Pulse Ox 98 05/05/21 16:10 - Physical Examination General: Other (intubated and sedated) Cardiac: Positive: Reg Rate and Rhythm - Labs and Meds Cardiac Enzymes 05/05/21 Range/Units 04:35 AST 54 H (5-40) units/L CBC 05/05/21 Range/Units 04:35 WBC 4.4 L (4.5-11.0) K/mm3 RBC 2.04 L (3.65-5.03) M/mm3 Hgb 6.3 L (10.1-14.3) gm/dl Hct 19.1 L* (30.3-42.9) % Plt Count 77 L (140-440) K/mm3 Comprehensive Metabolic Panel 05/05/21 05/05/21 Range/Units 04:35 04:35 Sodium 131 L (137-145) mmol/L Potassium 4.7 (3.6-5.0) mmol/L Chloride 98.7 (98-107) mmol/L Carbon Dioxide 21 L (22-30) mmol/L BUN 31 H (7-17) mg/dL Creatinine 1.1 (0.6-1.2) mg/dL Glucose 158 H (65-100) mg/dL Calcium 9.5 (8.4-10.2) mg/dL Direct Bilirubin < 0.2 (0-0.2) mg/dL Indirect Bilirubin 0.0 mg/dL AST 54 H (5-40) units/L ALT 70 H (7-56) units/L Alkaline Phosphatase 96 (35-129) units/L Total Protein 8.4 H (6.3-8.2) g/dL Albumin 2.5 L (3.9-5) g/dL - Imaging and Cardiology EKG: report reviewed, image reviewed Echo: report reviewed - Telemetry EKG Rhythm: Sinus Rhythm - EKG Sinus rhythms and dysrhythmias: sinus rhythm AV and intraventricular conduction: 1 AV block - Allied health notes Allied health notes reviewed: nursing
--- NOTE | 2021-05-05 18:53 | Progress Note ---
Assessment and Plan Symptomatic bradycardia with subsequent PEA arrest status post ROSC Acute hypoxic respiratory failure Cardiogenic shock Hypothyroidism Acute metabolic encephalopathy Leukopenia Anemia Transaminitis Hypothermia Hyperkalemia Medical management of hyperkalemia Deescalate antibiotics Blood and tracheal aspirate cultures from 05/02- NGTD Bowel regimen Stop VTE prophylaxis, SCDs. She has required supportive blood transfusions and has thrombocytopenia Will discuss with cardiology, if no plans for PPM- start SBT with goal to liberate from MVS. Avoid delirium Maintain sleep-wake cycle Supportive trasnfusion today to keep hgB >7g/dL -Off dopamine -Titrate supplemental oxygen to keep SpO2 88-90% -VAP bundle addressed, aspiration precautions -ABG, CXR as clinically indicated -Prn Fentanyl for analgesia - s/p transvenous pacemaker by cardiology -Continue to Trend liver enzymes -VTE prophylaxis- on Enoxaparin -Supportive transfusions as clinically indicated, keep HgB>7g/dL -Treat with empiric antibiotics, de-escalate once culture data is available Full Code The high probability of a clinically significant, sudden or life threatening deterioration of the [multi] system(s) required my full and direct attention, intervention and personal management. The aggregate critical care time was [35] minutes. This time is in addition to time spent performing reported procedures but includes the following: [x] Data Review and interpretation [x] Patient assessment and monitoring of vital signs [x] Documentation [x] Medication orders and management Subjective Date of service: 05/05/21 Principal diagnosis: Symptomatic Bradycardia Interval history: Follow up :Symptomatic bradycardia with subsequent PEA arrest status post ROSC; Acute hypoxic respiratory failure on MVS; Cardiogenic shock; Hypothyroidism; Acute metabolic encephalopathy Seen and examined with RN at the bedside. Vitals, labs, medications, chart and imaging reviewed. No adverse events reported. Remains off dopamine She is awake and alert Remains on MVS, minimal settings Discussed with respiratory care. 05/05: On sedation this am due to increase agitation. Patient failed SAT this am. 1unit ordered for low H&H this am with worsening in thrombocytopenia, AC held and stool occult ordered. Transvenous pacer still present at a back up rate of 50, patient SR on the monitor this am, HR in the 60s. Plan for possible TVP removal tomorrow by Cardio. Objective Vital Signs - 12hr 05/05/21 05/05/21 05/05/21 07:00 07:10 07:20 Temperature Pulse Rate 60 57 L 65 Pulse Rate [ Anterior Bilateral Throughout] Respiratory Rate Respiratory Rate [Anterior Bilateral Throughout] Blood Pressure 123/44 123/44 123/46 O2 Sat by Pulse 100 100 100 Oximetry 05/05/21 05/05/21 05/05/21 07:30 07:40 07:50 Temperature Pulse Rate 64 59 L 71 Pulse Rate [ Anterior Bilateral Throughout] Respiratory Rate Respiratory Rate [Anterior Bilateral Throughout] Blood Pressure 133/46 133/46 129/51 O2 Sat by Pulse 100 100 Oximetry 05/05/21 05/05/21 05/05/21 08:00 08:10 08:20 Temperature 99.3 F Pulse Rate 68 66 65 Pulse Rate [ Anterior Bilateral Throughout] Respiratory 24 Rate Respiratory Rate [Anterior Bilateral Throughout] Blood Pressure 121/55 121/55 91/69 O2 Sat by Pulse 98 100 99 Oximetry 05/05/21 05/05/21 05/05/21 08:30 08:40 08:50 Temperature Pulse Rate 69 80 71 Pulse Rate [ Anterior Bilateral Throughout] Respiratory Rate Respiratory Rate [Anterior Bilateral Throughout] Blood Pressure 147/57 147/57 118/55 O2 Sat by Pulse 98 99 100 Oximetry 05/05/21 05/05/21 05/05/21 09:00 09:10 09:20 Temperature Pulse Rate 68 74 65 Pulse Rate [ Anterior Bilateral Throughout] Respiratory Rate Respiratory Rate [Anterior Bilateral Throughout] Blood Pressure 125/55 125/55 124/48 O2 Sat by Pulse 100 100 100 Oximetry 05/05/21 05/05/21 05/05/21 09:30 09:40 09:45 Temperature Pulse Rate 72 66 60 Pulse Rate [ Anterior Bilateral Throughout] Respiratory Rate Respiratory Rate [Anterior Bilateral Throughout] Blood Pressure 127/49 127/49 123/44 O2 Sat by Pulse 100 100 100 Oximetry 05/05/21 05/05/21 05/05/21 09:50 09:53 10:00 Temperature Pulse Rate 71 73 Pulse Rate [ 69 Anterior Bilateral Throughout] Respiratory Rate Respiratory 20 Rate [Anterior Bilateral Throughout] Blood Pressure 126/50 142/62 O2 Sat by Pulse 100 Oximetry 05/05/21 05/05/21 05/05/21 10:02 10:06 10:10 Temperature 96.8 F L 97.9 F Pulse Rate 68 76 73 Pulse Rate [ Anterior Bilateral Throughout] Respiratory 20 20 Rate Respiratory Rate [Anterior Bilateral Throughout] Blood Pressure 142/62 159/71 142/62 O2 Sat by Pulse 100 98 100 Oximetry 05/05/21 05/05/21 05/05/21 10:20 10:30 10:40 Temperature Pulse Rate 76 84 95 H Pulse Rate [ Anterior Bilateral Throughout] Respiratory Rate Respiratory Rate [Anterior Bilateral Throughout] Blood Pressure 160/66 160/66 166/82 O2 Sat by Pulse 97 96 96 Oximetry 05/05/21 05/05/21 05/05/21 10:50 11:00 11:10 Temperature Pulse Rate 81 76 84 Pulse Rate [ Anterior Bilateral Throughout] Respiratory Rate Respiratory Rate [Anterior Bilateral Throughout] Blood Pressure 165/70 154/54 154/54 O2 Sat by Pulse 93 95 94 Oximetry 05/05/21 05/05/21 05/05/21 11:20 11:30 11:40 Temperature Pulse Rate 83 77 84 Pulse Rate [ Anterior Bilateral Throughout] Respiratory Rate Respiratory Rate [Anterior Bilateral Throughout] Blood Pressure 174/65 151/69 165/71 O2 Sat by Pulse 93 94 94 Oximetry 05/05/21 05/05/21 05/05/21 11:50 12:00 12:10 Temperature 97.9 F Pulse Rate 68 73 76 Pulse Rate [ Anterior Bilateral Throughout] Respiratory 24 Rate Respiratory Rate [Anterior Bilateral Throughout] Blood Pressure 159/71 172/78 172/78 O2 Sat by Pulse 99 93 99 Oximetry 05/05/21 05/05/21 05/05/21 12:20 12:30 12:40 Temperature Pulse Rate 66 74 72 Pulse Rate [ Anterior Bilateral Throughout] Respiratory 20 Rate Respiratory Rate [Anterior Bilateral Throughout] Blood Pressure 168/68 162/75 162/75 O2 Sat by Pulse 98 97 100 Oximetry 05/05/21 05/05/21 05/05/21 12:50 13:00 13:10 Temperature Pulse Rate 76 70 76 Pulse Rate [ Anterior Bilateral Throughout] Respiratory Rate Respiratory Rate [Anterior Bilateral Throughout] Blood Pressure 159/68 172/70 172/70 O2 Sat by Pulse 99 98 94 Oximetry 05/05/21 05/05/21 05/05/21 13:20 13:30 13:40 Temperature Pulse Rate 83 81 75 Pulse Rate [ Anterior Bilateral Throughout] Respiratory Rate Respiratory Rate [Anterior Bilateral Throughout] Blood Pressure 182/76 182/76 164/98 O2 Sat by Pulse 99 97 100 Oximetry 05/05/21 05/05/21 05/05/21 13:50 14:00 14:10 Temperature Pulse Rate 65 73 73 Pulse Rate [ Anterior Bilateral Throughout] Respiratory Rate Respiratory Rate [Anterior Bilateral Throughout] Blood Pressure 167/92 166/66 166/66 O2 Sat by Pulse 100 98 97 Oximetry 05/05/21 05/05/21 05/05/21 14:20 14:30 14:40 Temperature Pulse Rate 82 76 82 Pulse Rate [ 88 Anterior Bilateral Throughout] Respiratory Rate Respiratory 26 H Rate [Anterior Bilateral Throughout] Blood Pressure 161/67 171/70 171/70 O2 Sat by Pulse 96 98 97 Oximetry 05/05/21 05/05/21 05/05/21 14:50 15:00 15:10 Temperature Pulse Rate 81 83 95 H Pulse Rate [ Anterior Bilateral Throughout] Respiratory Rate Respiratory Rate [Anterior Bilateral Throughout] Blood Pressure 173/62 169/76 169/76 O2 Sat by Pulse 95 98 97 Oximetry 05/05/21 05/05/21 05/05/21 15:13 15:20 15:30 Temperature Pulse Rate 82 72 71 Pulse Rate [ Anterior Bilateral Throughout] Respiratory Rate Respiratory Rate [Anterior Bilateral Throughout] Blood Pressure 169/76 183/112 167/62 O2 Sat by Pulse 95 98 98 Oximetry 05/05/21 05/05/21 05/05/21 15:40 15:50 16:00 Temperature 98.4 F Pulse Rate 72 70 71 Pulse Rate [ Anterior Bilateral Throughout] Respiratory 24 Rate Respiratory Rate [Anterior Bilateral Throughout] Blood Pressure 167/62 166/72 154/61 O2 Sat by Pulse 99 98 99 Oximetry 05/05/21 16:10 Temperature Pulse Rate 68 Pulse Rate [ Anterior Bilateral Throughout] Respiratory Rate Respiratory Rate [Anterior Bilateral Throughout] Blood Pressure 154/61 O2 Sat by Pulse 98 Oximetry Constitutional: no acute distress, alert Eyes: non-icteric ENT: oropharynx moist, other (orally intubated) Neck: supple, no lymphadenopathy, no JVD, other (RIJ transvenous pacemaker) Effort: normal Ascultation: Bilateral: diminished breath sounds, rales Cardiovascular: regular rate and rhythm, other (paced) Gastrointestinal: normoactive bowel sounds, soft, other (distended suprapubic area- possibly bladder) Extremities: no edema, pulses normal Neurologic: non-focal exam, pupils equal and round, other (tracks voice) CBC and BMP: 05/14/21 05:15 05/14/21 05:15 ABG, PT/INR, D-dimer: ABG ABG pH 7.362 pH Units (7.350-7.450) 05/05/21 02:30 ABG pCO2 43.2 mm Hg 05/05/21 02:30 ABG pO2 123.1 mm Hg (80.0-90.0) H 05/05/21 02:30 ABG O2 Saturation 98.3 % (95.0-99.0) 05/05/21 02:30 PT/INR, D-dimer PT 15.1 Sec. (12.2-14.9) H 05/02/21 05:16 INR 1.07 (0.87-1.13) 05/02/21 05:16 Abnormal lab findings: Abnormal Labs 05/02/21 05/02/21 05/02/21 05:16 05:16 05:16 WBC 2.9 L RBC 2.36 L Hgb 7.4 L Hct 22.2 L RDW 18.2 H Plt Count Lymph % (Auto) Lymph # (Auto) 0.5 L Seg Neutrophils % 76.5 H Seg Neuts % (Manual) Lymphocytes % (Manual) Lymphocytes # (Manual) PT 15.1 H APTT 41.7 H ABG pO2 ABG O2 Saturation ABG Hemoglobin Oxyhemoglobin Sodium 129 L Potassium 6.2 H* Chloride 97.0 L Carbon Dioxide BUN Creatinine Glucose POC Glucose Magnesium AST ALT Total Creatine Kinase Total Protein Albumin TSH Free T4 Coronavirus (PCR) Crossmatch 05/02/21 05/02/21 05/02/21 05:17 05:53 06:41 WBC RBC Hgb Hct RDW Plt Count Lymph % (Auto) Lymph # (Auto) Seg Neutrophils % Seg Neuts % (Manual) Lymphocytes % (Manual) Lymphocytes # (Manual) PT APTT ABG pO2 ABG O2 Saturation ABG Hemoglobin Oxyhemoglobin Sodium Potassium Chloride Carbon Dioxide BUN Creatinine Glucose POC Glucose Magnesium AST 144 H ALT 115 H Total Creatine Kinase 189 H Total Protein 9.6 H Albumin 2.9 L TSH 10.350 H Free T4 0.61 L Coronavirus (PCR) Crossmatch 05/02/21 05/02/21 05/03/21 11:50 15:56 04:52 WBC RBC 2.20 L Hgb 6.8 L Hct 20.6 L RDW 18.4 H Plt Count Lymph % (Auto) Lymph # (Auto) Seg Neutrophils % Seg Neuts % (Manual) 86.0 H Lymphocytes % (Manual) 3.0 L Lymphocytes # (Manual) 0.1 L PT APTT ABG pO2 352.4 H ABG O2 Saturation 99.5 H ABG Hemoglobin 6.9 L Oxyhemoglobin Sodium Potassium 5.8 H Chloride Carbon Dioxide BUN Creatinine Glucose POC Glucose Magnesium AST ALT Total Creatine Kinase Total Protein Albumin TSH Free T4 Coronavirus (PCR) Crossmatch 05/03/21 05/03/21 05/03/21 04:52 10:10 10:23 WBC RBC Hgb Hct RDW Plt Count Lymph % (Auto) Lymph # (Auto) Seg Neutrophils % Seg Neuts % (Manual) Lymphocytes % (Manual) Lymphocytes # (Manual) PT APTT ABG pO2 177.2 H ABG O2 Saturation 99.1 H ABG Hemoglobin 7.1 L Oxyhemoglobin Sodium 129 L Potassium 6.2 H* Chloride 97.0 L Carbon Dioxide BUN 25 H Creatinine Glucose POC Glucose 106 H Magnesium AST 152 H ALT 127 H Total Creatine Kinase Total Protein 8.6 H Albumin 2.6 L TSH Free T4 Coronavirus (PCR) Crossmatch 05/03/21 05/03/21 05/03/21 13:11 14:13 16:49 WBC RBC Hgb Hct RDW Plt Count Lymph % (Auto) Lymph # (Auto) Seg Neutrophils % Seg Neuts % (Manual) Lymphocytes % (Manual) Lymphocytes # (Manual) PT APTT ABG pO2 ABG O2 Saturation ABG Hemoglobin Oxyhemoglobin Sodium Potassium Chloride Carbon Dioxide BUN Creatinine Glucose POC Glucose 116 H 58 L Magnesium AST ALT Total Creatine Kinase Total Protein Albumin TSH Free T4 Coronavirus (PCR) Crossmatch See Detail 05/03/21 05/03/21 05/03/21 17:34 19:58 20:07 WBC RBC Hgb Hct RDW Plt Count Lymph % (Auto) Lymph # (Auto) Seg Neutrophils % Seg Neuts % (Manual) Lymphocytes % (Manual) Lymphocytes # (Manual) PT APTT ABG pO2 ABG O2 Saturation ABG Hemoglobin Oxyhemoglobin Sodium 131 L Potassium 5.7 H Chloride 97.7 L Carbon Dioxide 21 L BUN 28 H Creatinine 1.4 H Glucose 130 H POC Glucose 123 H 122 H Magnesium AST ALT Total Creatine Kinase Total Protein Albumin TSH Free T4 Coronavirus (PCR) Crossmatch 05/03/21 05/03/21 05/04/21 Unknown 23:59 02:59 WBC RBC Hgb Hct RDW Plt Count Lymph % (Auto) Lymph # (Auto) Seg Neutrophils % Seg Neuts % (Manual) Lymphocytes % (Manual) Lymphocytes # (Manual) PT APTT ABG pO2 ABG O2 Saturation ABG Hemoglobin Oxyhemoglobin Sodium Potassium Chloride Carbon Dioxide BUN Creatinine Glucose POC Glucose 117 H 142 H Magnesium AST ALT Total Creatine Kinase Total Protein Albumin TSH Free T4 Coronavirus (PCR) Positive A Crossmatch 05/04/21 05/04/21 05/04/21 03:15 09:41 09:41 WBC RBC 2.28 L Hgb 7.1 L Hct 21.4 L RDW 18.5 H Plt Count 97 L Lymph % (Auto) 10.4 L Lymph # (Auto) 0.6 L Seg Neutrophils % 84.7 H Seg Neuts % (Manual) Lymphocytes % (Manual) Lymphocytes # (Manual) PT APTT ABG pO2 ABG O2 Saturation ABG Hemoglobin 6.9 L Oxyhemoglobin 94.9 L Sodium 132 L Potassium Chloride Carbon Dioxide 21 L BUN 33 H Creatinine 1.4 H Glucose 143 H POC Glucose Magnesium AST ALT Total Creatine Kinase Total Protein Albumin TSH Free T4 Coronavirus (PCR) Crossmatch 05/04/21 05/04/21 05/04/21 11:43 16:48 21:31 WBC RBC Hgb Hct RDW Plt Count Lymph % (Auto) Lymph # (Auto) Seg Neutrophils % Seg Neuts % (Manual) Lymphocytes % (Manual) Lymphocytes # (Manual) PT APTT ABG pO2 ABG O2 Saturation ABG Hemoglobin Oxyhemoglobin Sodium Potassium Chloride Carbon Dioxide BUN Creatinine Glucose POC Glucose 125 H 129 H 124 H Magnesium AST ALT Total Creatine Kinase Total Protein Albumin TSH Free T4 Coronavirus (PCR) Crossmatch 05/05/21 05/05/21 05/05/21 01:32 02:30 04:35 WBC RBC Hgb Hct RDW Plt Count Lymph % (Auto) Lymph # (Auto) Seg Neutrophils % Seg Neuts % (Manual) Lymphocytes % (Manual) Lymphocytes # (Manual) PT APTT ABG pO2 123.1 H ABG O2 Saturation ABG Hemoglobin 5.9 L Oxyhemoglobin Sodium Potassium Chloride Carbon Dioxide BUN Creatinine Glucose POC Glucose 128 H Magnesium AST 54 H ALT 70 H Total Creatine Kinase Total Protein 8.4 H Albumin 2.5 L TSH Free T4 Coronavirus (PCR) Crossmatch 05/05/21 05/05/21 05/05/21 04:35 04:35 06:11 WBC 4.4 L RBC 2.04 L Hgb 6.3 L Hct 19.1 L* RDW 18.3 H Plt Count 77 L Lymph % (Auto) Lymph # (Auto) Seg Neutrophils % Seg Neuts % (Manual) Lymphocytes % (Manual) Lymphocytes # (Manual) PT APTT ABG pO2 ABG O2 Saturation ABG Hemoglobin Oxyhemoglobin Sodium 131 L Potassium Chloride Carbon Dioxide 21 L BUN 31 H Creatinine Glucose 158 H POC Glucose 165 H Magnesium 2.40 H AST ALT Total Creatine Kinase Total Protein Albumin TSH Free T4 Coronavirus (PCR) Crossmatch 05/05/21 07:20 WBC RBC Hgb Hct RDW Plt Count Lymph % (Auto) Lymph # (Auto) Seg Neutrophils % Seg Neuts % (Manual) Lymphocytes % (Manual) Lymphocytes # (Manual) PT APTT ABG pO2 ABG O2 Saturation ABG Hemoglobin Oxyhemoglobin Sodium Potassium Chloride Carbon Dioxide BUN Creatinine Glucose POC Glucose 152 H Magnesium AST ALT Total Creatine Kinase Total Protein Albumin TSH Free T4 Coronavirus (PCR) Crossmatch Chest x-ray: image reviewed Allied health notes reviewed: RT
[2021-05-06] MEDS: INSULIN LISPRO 100 UNIT/ML SUB-Q SCH ×6 (02:00→22:00)
[2021-05-06] MEDS: HYDROCORTISONE SOD SUCC 100 MG/2 ML VIAL IV SCH ×2 (05:09→11:08)
[2021-05-06 05:51] LABS: BUN/Creatinine Ratio 30; Blood Urea Nitrogen 30 mg/dL (7-17); Calcium 9.4 mg/dL (8.4-10.2); Hemolysis Index 1
[2021-05-06] MEDS: LEVOTHYROXINE 100 MCG INJ IV SCH (06:41)
[2021-05-06] MEDS: CEFEPIME/NS 1 GM/100 ML 1 GM/100 ML BAG IV SCH ×2 (06:43→11:09)
[2021-05-06 07:44] LABS: Hematocrit 23.2 % (30.3-42.9); Hemoglobin 7.7 gm/dl (10.1-14.3); Mean Corpuscular HGB Conc 33 % (30-34); Mean Corpuscular Volume 91 fl (79-97); Red Blood Count 2.54 M/mm3 (3.65-5.03); Red Cell Distribution Width 18.1 % (13.2-15.2)
[2021-05-06 07:45] LABS: Platelet Count 73 K/mm3 (140-440)
[2021-05-06] MEDS: BUDESONIDE 0.5 MG/2 ML NEBU IH SCH ×2 (08:55→19:53)
[2021-05-06] MEDS: IPRATROPIUM/ALBUTEROL SULFATE 3 ML AMPUL.NEB IH SCH ×3 (08:55→19:53)
[2021-05-06] MEDS: POLYETHYLENE GLYCOL 3350 17 GM POWDER PO SCH (10:32)
[2021-05-06] MEDS: SODIUM CHLORIDE 0.9% 50 ML IVPB IV PRN (10:33)
[2021-05-06] MEDS: FAMOTIDINE 20 MG/2 ML INJ IV SCH (10:33)
[2021-05-06] MEDS: DOCUSATE SODIUM 100 MG/10 ML ORAL LIQD PO SCH ×2 (10:33→21:59)
[2021-05-06] MEDS: SENNOSIDES ORAL LIQD 8.8 MG/5 ML ORAL LIQD PO SCH ×2 (10:33→21:59)
--- NOTE | 2021-05-06 12:30 | Progress Note ---
Assessment and Plan Symptomatic bradycardia with subsequent PEA arrest status post ROSC Acute hypoxic respiratory failure Cardiogenic shock Hypothyroidism Thrombocytopenia Acute metabolic encephalopathy Leukopenia Anemia Transaminitis Hypothermia Hyperkalemia - get CXR and address - hold Propofol; begin Fentanyl - begin SBT and get ABG after 2 hours - trentative trial of extubation in am and in conjunction with PPM decision - received Kayexalate - change Solucortef to Dexamethasone for COVID-19 - get HIT assay re: thrombocytopenia (received Heparinoids this admission) - de-escalate antibiotics per ID recommendations - continue care as below otherwise; - PPM decision per cardiology team - wean vasopressors for target MAP > 65 mmHg - continue Daily SAT and SBT assessment as tolerated - continue bronchodilators with pulmonary hygiene per RT - continue to wean supplemental oxygen for target O2 sat's > 90% acutely - VAP bundle addressed - continue lung protective strategies - continue bronchodilators with pulmonary hygiene per RT - wean per pulmonary driven protocols otherwise - sedation prn for target RASS 0 to -1 - continue accuchecks with glycemic control per SSI (While critically ill target blood glucose of 140-180 mg/dL; avoid hypoglycemia) - avoid nephrotoxins, renally dose all medications - continue to avoid benzodiazepine's, reduce the possibility of delirium - prn analgesia per CPOT score - Maintenance of sleep-wake cycle, avoid delirium - continue enteral nutritional support at goal rate as tolerated - G.I. & VTE prophylaxis (VTE prophylaxis with SCDs; She has required supportive blood transfusions and has thrombocytopenia) - PT/OT/ROM exercises - mobility protocols for pressure ulcer prophylaxis - Monitor hemodynamics closely - continue other care per attending / other consultants - discharge planning ongoing concurrently COVID SPECIFIC INTERVENTIONS - Remdesivir as per ID/Pulmonary developed protocols - continue systemic steroids for severe COVID-19 infection empirically (D examethasone) - follow repeat COVID tests results - zinc and vitamin C supplementation - Monitor inflammatory markers per facility protocol - ferritin, Ddimer, CRP - therapeutic anticoagulation per system Protocol based on d-dimer and clinical considerations - Continue contact and airborne isolation .... Re-evaluate in am & prn CONDITION: CRITICAL PROGNOSIS: GUARDED CODE STATUS: FULL CODE The high probability of a clinically significant, sudden or life-threatening deterioration of the [respiratory, cardiovascular & neurologic] system(s) required my full and direct attention, intervention and personal management. The aggregate critical care time was [35] minutes without overlap. Time includes spent on; [x] Data Review and interpretation [x] Patient assessment and monitoring of vital signs [x] Documentation [x] Medication orders and management Subjective Date of service: 05/06/21 Principal diagnosis: Symptomatic bradycardia; AHRF; Cardiogenic shock; Thrombocytopenia; AMS Interval history: Patient is seen today for: Symptomatic bradycardia; Acute hypoxic respiratory failure; Cardiogenic shock; Hypothyroidism; Thrombocytopenia; AMS; Hyperkalemia Seen and examined at bedside; 24hour events reviewed; nursing and respiratory care staff consulted; no adverse overnight events reported to me; resting in bed; agitated earlier during SAT; on full MVS; no emesis or overt aspiration; TPM remains in place; on emperic COVID-19 therapy; + hyperkalemia Objective Vital Signs - 12hr 05/06/21 05/06/21 05/06/21 00:40 00:50 01:00 Temperature Pulse Rate 62 61 62 Respiratory Rate Blood Pressure 128/52 134/53 136/56 O2 Sat by Pulse 100 100 100 Oximetry 05/06/21 05/06/21 05/06/21 01:10 01:20 01:30 Temperature Pulse Rate 78 65 64 Respiratory Rate Blood Pressure 136/56 161/69 138/60 O2 Sat by Pulse 100 100 100 Oximetry 05/06/21 05/06/21 05/06/21 01:40 01:50 02:00 Temperature Pulse Rate 62 61 59 L Respiratory Rate Blood Pressure 138/60 137/57 133/53 O2 Sat by Pulse 100 100 100 Oximetry 05/06/21 05/06/21 05/06/21 02:10 02:20 02:30 Temperature Pulse Rate 61 62 69 Respiratory Rate Blood Pressure 133/53 138/55 138/55 O2 Sat by Pulse 100 100 100 Oximetry 05/06/21 05/06/21 05/06/21 02:40 02:50 03:00 Temperature Pulse Rate 68 70 73 Respiratory Rate Blood Pressure 157/72 148/60 163/74 O2 Sat by Pulse 100 100 99 Oximetry 05/06/21 05/06/21 05/06/21 03:10 03:20 03:30 Temperature Pulse Rate 71 72 70 Respiratory Rate Blood Pressure 163/74 154/64 145/56 O2 Sat by Pulse 97 100 100 Oximetry 05/06/21 05/06/21 05/06/21 03:40 03:50 04:00 Temperature 95 F L Pulse Rate 78 82 82 Respiratory 24 Rate Blood Pressure 145/56 167/73 173/71 O2 Sat by Pulse 97 97 99 Oximetry 05/06/21 05/06/21 05/06/21 04:10 04:20 04:30 Temperature Pulse Rate 80 85 82 Respiratory Rate Blood Pressure 173/71 159/69 163/67 O2 Sat by Pulse 96 97 98 Oximetry 05/06/21 05/06/21 05/06/21 04:40 04:50 05:00 Temperature Pulse Rate 85 82 86 Respiratory Rate Blood Pressure 163/67 154/74 165/71 O2 Sat by Pulse 97 98 97 Oximetry 05/06/21 05/06/21 05/06/21 05:10 05:20 05:30 Temperature Pulse Rate 83 82 85 Respiratory Rate Blood Pressure 165/71 159/62 158/61 O2 Sat by Pulse 100 99 96 Oximetry 05/06/21 05/06/21 05/06/21 05:40 05:50 06:00 Temperature Pulse Rate 86 83 80 Respiratory Rate Blood Pressure 158/61 167/63 166/63 O2 Sat by Pulse 99 100 93 Oximetry 05/06/21 05/06/21 05/06/21 06:11 06:21 06:30 Temperature Pulse Rate 87 87 83 Respiratory Rate Blood Pressure 167/63 174/70 171/64 O2 Sat by Pulse 99 98 100 Oximetry 05/06/21 05/06/21 05/06/21 06:41 06:47 06:51 Temperature 99 F Pulse Rate 76 76 Respiratory Rate Blood Pressure 171/64 168/68 O2 Sat by Pulse 100 100 Oximetry 05/06/21 05/06/21 05/06/21 07:00 07:11 07:21 Temperature Pulse Rate 77 80 73 Respiratory Rate Blood Pressure 170/66 170/66 175/67 O2 Sat by Pulse 100 100 100 Oximetry 05/06/21 05/06/21 05/06/21 07:30 07:41 07:51 Temperature Pulse Rate 78 74 86 Respiratory Rate Blood Pressure 173/69 173/69 163/69 O2 Sat by Pulse 100 100 98 Oximetry 05/06/21 05/06/21 05/06/21 07:55 08:00 08:11 Temperature 99 F Pulse Rate 81 89 76 Respiratory 27 H Rate Blood Pressure 163/69 172/139 172/139 O2 Sat by Pulse 99 99 98 Oximetry 05/06/21 05/06/21 05/06/21 08:20 08:30 08:41 Temperature Pulse Rate 67 65 63 Respiratory Rate Blood Pressure 135/52 137/56 137/56 O2 Sat by Pulse 98 100 100 Oximetry 05/06/21 05/06/21 05/06/21 08:51 09:00 09:11 Temperature Pulse Rate 75 79 76 Respiratory Rate Blood Pressure 158/66 168/66 168/66 O2 Sat by Pulse 100 100 Oximetry 05/06/21 11:25 Temperature Pulse Rate 81 Respiratory Rate Blood Pressure 164/71 O2 Sat by Pulse 98 Oximetry Constitutional: appears uncomfortable, other (elderly female with mildly increased respiratory effort at rest on MVS) Eyes: non-icteric ENT: oropharynx moist, other (ETT 24 cm HIMANSHU) Neck: supple, no lymphadenopathy, no JVD, other (RIJ transvenous pacemaker) Effort: mildly labored Ascultation: Bilateral: diminished breath sounds, rales Percussion: Bilateral: not dull Cardiovascular: regular rate and rhythm, other (S1,S2) Gastrointestinal: normoactive bowel sounds, soft, non-distended, other (distended suprapubic area- possibly bladder) Integumentary: normal Extremities: no cyanosis, no edema, pulses normal, no ischemia or petechiae Neurologic: non-focal exam (grossly), pupils equal and round, unable to assess, other (sedated) Psychiatric: anxious CBC and BMP: 05/06/21 04:56 05/06/21 04:56 ABG, PT/INR, D-dimer: ABG ABG pH 7.362 pH Units (7.350-7.450) 05/05/21 02:30 ABG pCO2 43.2 mm Hg 05/05/21 02:30 ABG pO2 123.1 mm Hg (80.0-90.0) H 05/05/21 02:30 ABG O2 Saturation 98.3 % (95.0-99.0) 05/05/21 02:30 PT/INR, D-dimer PT 15.1 Sec. (12.2-14.9) H 05/02/21 05:16 INR 1.07 (0.87-1.13) 05/02/21 05:16 Abnormal lab findings: Abnormal Labs 05/02/21 05/02/2122 05:16 05:16 05:16 WBC 2.9 L RBC 2.36 L Hgb 7.4 L Hct 22.2 L RDW 18.2 H Plt Count Lymph % (Auto) Lymph # (Auto) 0.5 L Seg Neutrophils % 76.5 H Seg Neuts % (Manual) Lymphocytes % (Manual) Lymphocytes # (Manual) PT 15.1 H APTT 41.7 H ABG pO2 ABG O2 Saturation ABG Hemoglobin Oxyhemoglobin Sodium 129 L Potassium 6.2 H* Chloride 97.0 L Carbon Dioxide BUN Creatinine Glucose POC Glucose Magnesium AST ALT Total Creatine Kinase Total Protein Albumin TSH Free T4 Coronavirus (PCR) Crossmatch 05/02/21 05/02/21 05/02/21 05:17 05:53 06:41 WBC RBC Hgb Hct RDW Plt Count Lymph % (Auto) Lymph # (Auto) Seg Neutrophils % Seg Neuts % (Manual) Lymphocytes % (Manual) Lymphocytes # (Manual) PT APTT ABG pO2 ABG O2 Saturation ABG Hemoglobin Oxyhemoglobin Sodium Potassium Chloride Carbon Dioxide BUN Creatinine Glucose POC Glucose Magnesium AST 144 H ALT 115 H Total Creatine Kinase 189 H Total Protein 9.6 H Albumin 2.9 L TSH 10.350 H Free T4 0.61 L Coronavirus (PCR) Crossmatch 05/02/21 05/02/21 05/03/21 11:50 15:56 04:52 WBC RBC 2.20 L Hgb 6.8 L Hct 20.6 L RDW 18.4 H Plt Count Lymph % (Auto) Lymph # (Auto) Seg Neutrophils % Seg Neuts % (Manual) 86.0 H Lymphocytes % (Manual) 3.0 L Lymphocytes # (Manual) 0.1 L PT APTT ABG pO2 352.4 H ABG O2 Saturation 99.5 H ABG Hemoglobin 6.9 L Oxyhemoglobin Sodium Potassium 5.8 H Chloride Carbon Dioxide BUN Creatinine Glucose POC Glucose Magnesium AST ALT Total Creatine Kinase Total Protein Albumin TSH Free T4 Coronavirus (PCR) Crossmatch 05/03/21 05/03/21 05/03/21 04:52 10:10 10:23 WBC RBC Hgb Hct RDW Plt Count Lymph % (Auto) Lymph # (Auto) Seg Neutrophils % Seg Neuts % (Manual) Lymphocytes % (Manual) Lymphocytes # (Manual) PT APTT ABG pO2 177.2 H ABG O2 Saturation 99.1 H ABG Hemoglobin 7.1 L Oxyhemoglobin Sodium 129 L Potassium 6.2 H* Chloride 97.0 L Carbon Dioxide BUN 25 H Creatinine Glucose POC Glucose 106 H Magnesium AST 152 H ALT 127 H Total Creatine Kinase Total Protein 8.6 H Albumin 2.6 L TSH Free T4 Coronavirus (PCR) Crossmatch 05/03/21 05/03/21 05/03/21 13:11 14:13 16:49 WBC RBC Hgb Hct RDW Plt Count Lymph % (Auto) Lymph # (Auto) Seg Neutrophils % Seg Neuts % (Manual) Lymphocytes % (Manual) Lymphocytes # (Manual) PT APTT ABG pO2 ABG O2 Saturation ABG Hemoglobin Oxyhemoglobin Sodium Potassium Chloride Carbon Dioxide BUN Creatinine Glucose POC Glucose 116 H 58 L Magnesium AST ALT Total Creatine Kinase Total Protein Albumin TSH Free T4 Coronavirus (PCR) Crossmatch See Detail 05/03/21 05/03/21 05/03/21 17:34 19:58 20:07 WBC RBC Hgb Hct RDW Plt Count Lymph % (Auto) Lymph # (Auto) Seg Neutrophils % Seg Neuts % (Manual) Lymphocytes % (Manual) Lymphocytes # (Manual) PT APTT ABG pO2 ABG O2 Saturation ABG Hemoglobin Oxyhemoglobin Sodium 131 L Potassium 5.7 H Chloride 97.7 L Carbon Dioxide 21 L BUN 28 H Creatinine 1.4 H Glucose 130 H POC Glucose 123 H 122 H Magnesium AST ALT Total Creatine Kinase Total Protein Albumin TSH Free T4 Coronavirus (PCR) Crossmatch 05/03/21 05/03/21 05/04/21 Unknown 23:59 02:59 WBC RBC Hgb Hct RDW Plt Count Lymph % (Auto) Lymph # (Auto) Seg Neutrophils % Seg Neuts % (Manual) Lymphocytes % (Manual) Lymphocytes # (Manual) PT APTT ABG pO2 ABG O2 Saturation ABG Hemoglobin Oxyhemoglobin Sodium Potassium Chloride Carbon Dioxide BUN Creatinine Glucose POC Glucose 117 H 142 H Magnesium AST ALT Total Creatine Kinase Total Protein Albumin TSH Free T4 Coronavirus (PCR) Positive A Crossmatch 05/04/21 05/04/21 05/04/21 03:15 09:41 09:41 WBC RBC 2.28 L Hgb 7.1 L Hct 21.4 L RDW 18.5 H Plt Count 97 L Lymph % (Auto) 10.4 L Lymph # (Auto) 0.6 L Seg Neutrophils % 84.7 H Seg Neuts % (Manual) Lymphocytes % (Manual) Lymphocytes # (Manual) PT APTT ABG pO2 ABG O2 Saturation ABG Hemoglobin 6.9 L Oxyhemoglobin 94.9 L Sodium 132 L Potassium Chloride Carbon Dioxide 21 L BUN 33 H Creatinine 1.4 H Glucose 143 H POC Glucose Magnesium AST ALT Total Creatine Kinase Total Protein Albumin TSH Free T4 Coronavirus (PCR) Crossmatch 05/04/21 05/04/21 05/04/21 11:43 16:48 21:31 WBC RBC Hgb Hct RDW Plt Count Lymph % (Auto) Lymph # (Auto) Seg Neutrophils % Seg Neuts % (Manual) Lymphocytes % (Manual) Lymphocytes # (Manual) PT APTT ABG pO2 ABG O2 Saturation ABG Hemoglobin Oxyhemoglobin Sodium Potassium Chloride Carbon Dioxide BUN Creatinine Glucose POC Glucose 125 H 129 H 124 H Magnesium AST ALT Total Creatine Kinase Total Protein Albumin TSH Free T4 Coronavirus (PCR) Crossmatch 05/05/21 05/05/21 05/05/21 01:32 02:30 04:35 WBC RBC Hgb Hct RDW Plt Count Lymph % (Auto) Lymph # (Auto) Seg Neutrophils % Seg Neuts % (Manual) Lymphocytes % (Manual) Lymphocytes # (Manual) PT APTT ABG pO2 123.1 H ABG O2 Saturation ABG Hemoglobin 5.9 L Oxyhemoglobin Sodium Potassium Chloride Carbon Dioxide BUN Creatinine Glucose POC Glucose 128 H Magnesium AST 54 H ALT 70 H Total Creatine Kinase Total Protein 8.4 H Albumin 2.5 L TSH Free T4 Coronavirus (PCR) Crossmatch 05/05/21 05/05/21 05/05/21 04:35 04:35 06:11 WBC 4.4 L RBC 2.04 L Hgb 6.3 L Hct 19.1 L* RDW 18.3 H Plt Count 77 L Lymph % (Auto) Lymph # (Auto) Seg Neutrophils % Seg Neuts % (Manual) Lymphocytes % (Manual) Lymphocytes # (Manual) PT APTT ABG pO2 ABG O2 Saturation ABG Hemoglobin Oxyhemoglobin Sodium 131 L Potassium Chloride Carbon Dioxide 21 L BUN 31 H Creatinine Glucose 158 H POC Glucose 165 H Magnesium 2.40 H AST ALT Total Creatine Kinase Total Protein Albumin TSH Free T4 Coronavirus (PCR) Crossmatch 05/05/21 05/05/2122 07:20 17:01 23:25 WBC RBC Hgb Hct RDW Plt Count Lymph % (Auto) Lymph # (Auto) Seg Neutrophils % Seg Neuts % (Manual) Lymphocytes % (Manual) Lymphocytes # (Manual) PT APTT ABG pO2 ABG O2 Saturation ABG Hemoglobin Oxyhemoglobin Sodium Potassium Chloride Carbon Dioxide BUN Creatinine Glucose POC Glucose 152 H 114 H 148 H Magnesium AST ALT Total Creatine Kinase Total Protein Albumin TSH Free T4 Coronavirus (PCR) Crossmatch 05/06/21 05/06/21 05/06/21 04:56 04:56 05:37 WBC RBC 2.54 L Hgb 7.7 L Hct 23.2 L RDW 18.1 H Plt Count 73 L Lymph % (Auto) Lymph # (Auto) Seg Neutrophils % Seg Neuts % (Manual) Lymphocytes % (Manual) Lymphocytes # (Manual) PT APTT ABG pO2 ABG O2 Saturation ABG Hemoglobin Oxyhemoglobin Sodium 134 L Potassium 5.1 H Chloride Carbon Dioxide BUN 30 H Creatinine Glucose 133 H POC Glucose 120 H Magnesium AST ALT Total Creatine Kinase Total Protein Albumin TSH Free T4 Coronavirus (PCR) Crossmatch Chest x-ray: pending Allied health notes reviewed: nursing
[2021-05-06] MEDS ORDERED: hydrALAZINE 20 MG/1 ML INJ IV PRN (12:39)
[2021-05-06] MEDS ORDERED: amLODIPine 10 MG TAB FEEDTUBE SCH (13:00)
--- NOTE | 2021-05-06 14:14 | Progress Note ---
Assessment and Plan 89-year-old female with a past medical history of hyper tension presenting to our facility with altered mental status, decreased responsiveness, bradycardia brought to the ED who 1 and then went to PEA arrest. ACLS protocol initiated with ROSC achieved. Patient taken to Reimbursement Manager for temporary PPM Acute Encephalopathy Acute Respiratory Failure COVID-19 Infection Symptomatic Bradycardia (TVP in situ) S/p PEA Arrest S/p Cardiogenic Shock Moderate MR MICHEAL (resolved) Hyponatremia Hyperkalemia (resolved) Anemia Thrombocytopenia Elevated LFTs HTN Euthyroid Sick Syndrome Echo 05/02/2021-EF 65 to 70%. Severe concentric LVH. Mild diastolic dysfunction is present impaired relaxation pattern. Moderate mitral regurgitation. Right ventricle is dilated. Right ventricular systolic function is normal device lead is present in right ventricle. Right atrium is dilated. No pericardial effusion Plan: Patient heart rate trending sinus 70s. Decrease patient's temporary PPM rate to 40 Possible TVP removal when clinically stable. Patient seen in conjunction with Dr. Dalton who agrees with this plan of care - Patient Problems (1) Symptomatic bradycardia Current Visit: Yes Status: Acute Subjective Date of service: 05/06/21 Principal diagnosis: Symptomatic bradycardia; AHRF; Cardiogenic shock; Thrombocytopenia; AMS Interval history: Patient remains intubated and sedated Patient was trending sinus 70s Objective Vital Signs Temp Pulse Pulse Resp Resp BP Pulse Ox 05/06/21 13:11 76 168/73 100 05/06/21 13:04 74 168/73 05/06/21 13:01 78 183/121 99 05/06/21 12:58 97.7 F 05/06/21 12:51 72 183/121 100 05/06/21 12:41 73 184/82 05/06/21 12:30 67 184/82 100 05/06/21 12:21 69 165/76 100 05/06/21 12:11 76 185/80 05/06/21 12:00 72 185/80 100 05/06/21 11:51 78 186/86 89 05/06/21 11:41 83 174/74 98 05/06/21 11:31 77 174/74 100 05/06/21 11:25 81 164/71 98 05/06/21 11:21 62 164/71 100 05/06/21 11:11 79 138/114 100 05/06/21 11:01 80 176/72 92 05/06/21 10:51 76 176/72 94 05/06/21 10:41 64 170/74 100 05/06/21 10:31 77 189/100 92 05/06/21 10:21 73 175/81 99 05/06/21 10:11 73 185/75 05/06/21 10:01 75 185/75 99 05/06/21 09:51 68 171/70 100 05/06/21 09:41 70 178/76 100 05/06/21 09:30 71 178/76 99 05/06/21 09:21 76 163/75 100 05/06/21 09:11 76 168/66 100 05/06/21 09:00 79 168/66 05/06/21 08:51 75 158/66 100 05/06/21 08:41 63 137/56 100 05/06/21 08:30 65 137/56 100 05/06/21 08:20 67 135/52 98 05/06/21 08:11 76 172/139 98 05/06/21 08:00 99 F 89 27 H 172/139 99 05/06/21 07:55 81 163/69 99 05/06/21 07:51 86 163/69 98 05/06/21 07:41 74 173/69 100 05/06/21 07:30 78 173/69 100 05/06/21 07:21 73 175/67 100 05/06/21 07:11 80 170/66 100 05/06/21 07:00 77 170/66 100 05/06/21 06:51 76 168/68 100 05/06/21 06:47 99 F 05/06/21 06:41 76 171/64 100 05/06/21 06:30 83 171/64 100 05/06/21 06:21 87 174/70 98 05/06/21 06:11 87 167/63 99 05/06/21 06:00 80 166/63 93 05/06/21 05:50 83 167/63 100 05/06/21 05:40 86 158/61 99 05/06/21 05:30 85 158/61 96 05/06/21 05:20 82 159/62 99 05/06/21 05:10 83 165/71 100 05/06/21 05:00 86 165/71 97 01/24/22 04:50 82 154/74 98 01/24/22 04:40 85 163/67 97 05/06/21 04:30 82 163/67 98 05/06/21 04:20 85 159/69 97 05/06/21 04:10 80 173/71 96 05/06/21 04:00 95 F L 82 24 173/71 99 05/06/21 03:50 82 167/73 97 05/06/21 03:40 78 145/56 97 05/06/21 03:30 70 145/56 100 05/06/21 03:20 72 154/64 100 05/06/21 03:10 71 163/74 97 05/06/21 03:00 73 163/74 99 05/06/21 02:50 70 148/60 100 05/06/21 02:40 68 157/72 100 05/06/21 02:30 69 138/55 100 05/06/21 02:20 62 138/55 100 05/06/21 02:10 61 133/53 100 05/06/21 02:00 59 L 133/53 100 05/06/21 01:50 61 137/57 100 05/06/21 01:40 62 138/60 100 05/06/21 01:30 64 138/60 100 05/06/21 01:20 65 161/69 100 05/06/21 01:10 78 136/56 100 05/06/21 01:00 62 136/56 100 05/06/21 00:50 61 134/53 100 22 00:40 62 128/52 100 05/06/21 00:30 61 128/52 100 22 00:20 62 135/60 100 22 00:10 63 132/57 100 05/06/21 00:00 96.6 F L 74 24 132/57 99 22 23:50 66 137/50 100 23/22 23:40 66 150/62 100 23/22 23:30 68 150/62 100 0123/22 23:20 70 152/57 100 23/22 23:10 75 141/59 100 /23/22 23:00 67 141/59 100 23/22 22:50 66 137/54 100 2322 22:40 70 153/60 100 01/23/22 22:30 68 153/60 100 05/05/21 22:20 69 154/75 100 05/05/21 20:00 97.8 F 64 71 24 20 162/69 99 05/05/21 16:10 68 154/61 98 05/05/21 16:00 98.4 F 71 24 154/61 99 05/05/21 15:50 70 166/72 98 05/05/21 15:40 72 167/62 99 05/05/21 15:30 71 167/62 98 05/05/21 15:20 72 183/112 98 05/05/21 15:13 82 169/76 95 05/05/21 15:10 95 H 169/76 97 05/05/21 15:00 83 169/76 98 05/05/21 14:50 81 173/62 95 05/05/21 14:40 82 171/70 97 05/05/21 14:30 76 88 26 H 171/70 98 05/05/21 14:20 82 161/67 96 - Physical Examination General: Other (intubated and sedated) HEENT: Positive: Mucus Membranes Moist Neck: Positive: neck supple, trachea midline Cardiac: Positive: Reg Rate and Rhythm Lungs: Positive: Ventilated Respirations Neuro: Positive: Other (Pt intubated not following commands) Abdomen: Positive: Soft, Distended Skin: Negative: Rash Extremities: Present: Cool. Absent: edema - Labs and Meds CBC 05/06/21 Range/Units 04:56 WBC 6.7 (4.5-11.0) K/mm3 RBC 2.54 L (3.65-5.03) M/mm3 Hgb 7.7 L (10.1-14.3) gm/dl Hct 23.2 L (30.3-42.9) % Plt Count 73 L (140-440) K/mm3 Comprehensive Metabolic Panel 05/06/21 Range/Units 04:56 Sodium 134 L (137-145) mmol/L Potassium 5.1 H (3.6-5.0) mmol/L Chloride 98.6 (98-107) mmol/L Carbon Dioxide 24 (22-30) mmol/L BUN 30 H (7-17) mg/dL Creatinine 1.0 (0.6-1.2) mg/dL Glucose 133 H (65-100) mg/dL Calcium 9.4 (8.4-10.2) mg/dL - Imaging and Cardiology EKG: report reviewed, image reviewed Echo: report reviewed - Telemetry EKG Rhythm: Sinus Rhythm - EKG Sinus rhythms and dysrhythmias: sinus rhythm AV and intraventricular conduction: 1 AV block Repolarization changes or abnormalities: nonspecific abnormality, ST segment, and/or T wave - Allied health notes Allied health notes reviewed: nursing
[2021-05-06] MEDS: fentaNYL DRIP Premix 2,000 MCG/100 ML BAG IV SCH (14:50)
--- NOTE | 2021-05-06 15:19 | XRay Report ---
CHEST 1 VIEW 05/06/2021 1:53 PM INDICATION / CLINICAL INFORMATION: Aspiration. COMPARISON: 05/03/2021 FINDINGS: SUPPORT DEVICES: Tip of endotracheal tube is positioned approximately 4 cm above the estela. Nasogast wilson tube descends into the stomach. HEART / MEDIASTINUM: Unchanged LUNGS / PLEURA: There is increased interstitial disease centrally there is venous congestion. No pneu mothorax. There is focal airspace opacity noted in the left lung base. ADDITIONAL FINDINGS: No significant additional findings. IMPRESSION: 1. 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 2. There is focal airspace opacity noted in the left base. 3. No pneumothorax is seen. Signer Name: Alex Odom MD Signed: 05/06/2021 3:15 PM Workstation Name: [id number]
--- NOTE | 2021-05-06 15:19 | Consultation ---
History of Present Illness - Reason for Consult Consult date: 05/06/21 - History of Present Illness 89-year-old female past medical history hypertension presented to hospital with mental status, bradycardia. Has not taken to the emergency room she lost pulse and went to a PEA arrest. ROSC was achieved to 1 round of epi. She was taken to the [facility] for transvenous pacemaker. Afebrile with some low temperatures, white count 6.7. Covid positive. Normal renal function. Procalcitonin mildly elevated. Blood cultures no growth so far. Currently on cefepime, dexamethasone. Remains on vent. Imaging personally reviewed: Chest x-ray: No acute consolidation. Past History Past Medical History: hypertension, other (No previous records. No family at bedside) Social history: lives with family (Daughter and grandson), smoking (smoked for 40 years, now quit). denies: alcohol abuse Family history: no significant family history Medications and Allergies Allergies Allergy/AdvReac Type Severity Reaction Status Date / Time No Known Allergies Allergy Verified 05/02/21 06:02 Home Medications Medication Instructions Recorded Confirmed Last Taken Type amLODIPine 10 mg PO DAILY #30 tab 12/12/19 Unknown Rx Omeprazole 20 mg PO QDAY 05/05/21 05/05/21 Unknown History Active Meds: Active Medications Acetaminophen (Acetaminophen 325 Mg/10.15 Ml Oral Liqd Unit Dose) 650 mg FEEDTU BE Q6H PRN PRN Reason: Pain MILD(1-3)/Fever >100.5/[place] Albuterol/Ipratropium (Ipratropium/Albuterol Sulfate 3 Ml Ampul.Neb) 1 ampul IH TIDRT [facility] Last Admin: 05/06/21 14:19 Dose: Not Given Budesonide (Budesonide 0.5 Mg/2 Ml Nebu) 0.5 mg IH Q12HRT [facility] Last Admin: 05/06/21 08:55 Dose: Not Given Dexamethasone (Dexamethasone 4 Mg/Ml Vial) 6 mg IV Q24HR [facility] Stop: 05/12/21 10:01 Dextrose (Dextrose 10% *Hypoglycemia) 0 ml IV PRN PRN PRN Reason: Hypoglycemia Last Admin: 05/03/21 17:02 Dose: 100 ml Docusate Sodium (Docusate Sodium 100 Mg/10 Ml Oral Liqd) 100 mg PO BID [facility] Last Admin: 05/06/21 10:33 Dose: 100 mg Famotidine (Famotidine 10 Mg Tab) 10 mg FEEDTUBE BID J[facility]ON Fentanyl (Fentanyl 100 Mcg/2 Ml Inj) 50 mcg IV Q10MIN PRN PRN Reason: ANALGESIA Last Admin: 05/04/21 18:18 Dose: 50 mcg Hydralazine HCl (Hydralazine 25 Mg Tab) 25 mg PO Q8HR JHON NORepinephrine/NS 8 MG-250 ML (Norepinephrine/Ns 8 Mg-250 Ml (Double Conc)) 8 mg in 250 mls @ 3.75 mls/hr IV TITRATE JHON; Protocol Fentanyl Citrate (Fentanyl Drip Premix) 2,000 mcg in 100 mls @ 2.397 mls/hr IV TITR JHON; Protocol Last Admin: 05/06/21 14:50 Dose: 1 mcg/kg/hr, 2.397 mls/hr Propofol (Diprivan 10 Mg/Ml) 1,000 mg in 100 mls @ 1.438 mls/hr IV TITR JHON; Protocol Last Titration: 05/06/21 13:05 Dose: 0 mcg/kg/min, 0 mls/hr Cefepime HCl (Cefepime/Ns 1 Gm/100 Ml) 1 gm in 100 mls @ 200 mls/hr IV Q12H JHON ; Protocol Stop: 05/07/21 00:29 Last Admin: 05/06/21 11:09 Dose: 200 mls/hr Insulin Human Lispro (Insulin Lispro 100 Unit/Ml) 0 unit SUB-Q Q4HR JHON; Protocol Last Admin: 05/06/21 12:52 Dose: Not Given Labetalol HCl (Labetalol 20 Mg/4 Ml Inj) 10 mg IV Q4HR PRN PRN Reason: Hypertension Last Admin: 05/06/21 13:04 Dose: 10 mg Levothyroxine Sodium (Levothyroxine 100 Mcg Inj) 25 mcg IV DAILY@0600 [facility] Last Admin: 05/06/21 06:41 Dose: 25 mcg Ondansetron HCl (Ondansetron 4 Mg/2 Ml Inj) 4 mg IV Q8H PRN PRN Reason: Nausea And Vomiting Polyethylene Glycol (Polyethylene Glycol 3350 17 Gm Powder) 17 gm PO QDAY JOHN Last Admin: 05/06/21 10:32 Dose: 17 gm Senna (Sennosides Oral Liqd 8.8 Mg/5 Ml Oral Liqd) 17.6 mg PO Q12HR JHON Last Admin: 05/06/21 10:33 Dose: 17.6 mg Sodium Chloride (Sodium Chloride 0.9% 10 Ml Flush Syringe) 10 ml IV BID JHON Last Admin: 05/06/21 12:52 Dose: Not Given Sodium Chloride (Sodium Chloride 0.9% 10 Ml Flush Syringe) 10 ml IV PRN PRN PRN Reason: LINE FLUSH Sodium Chloride (Sodium Chloride 0.9% 50 Ml Ivpb) 10 ml IV PRN PRN PRN Reason: FLUSH Last Admin: 05/06/21 10:33 Dose: 10 ml Review of Systems ROS unobtainable: due to endotracheal tube Physical Examination - Physical Exam Narrative exam: Physical exam deferred to reduce risk of transmission of COVID-19. Please refer to primary team's note. - Constitutional Vitals: Vital Signs Temp Pulse Resp BP Pulse Ox 97.7 F 76 27 H 168/73 100 05/06/21 12:58 05/06/21 13:11 05/06/21 08:00 05/06/21 13:11 05/06/21 13:11 Temperature -Last 24 Hours Temperature 97.7 F Temperature 99 F Temperature 99 F Temperature 95 F Temperature 96.6 F Temperature 97.8 F Temperature 98.4 F Results - Labs CBC & Chem 7: 05/06/21 04:56 05/06/21 04:56 Labs: Abnormal lab results 05/05/21 05/05/21 05/06/21 Range/Units 17:01 23:25 04:56 RBC 2.54 L (3.65-5.03) M/mm3 Hgb 7.7 L (10.1-14.3) gm/dl Hct 23.2 L (30.3-42.9) % RDW 18.1 H (13.2-15.2) % Plt Count 73 L (140-440) K/mm3 Sodium (137-145) mmol/L Potassium (3.6-5.0) mmol/L BUN (7-17) mg/dL Glucose (65-100) mg/dL POC Glucose 114 H 148 H (70-105) mg/dL C-Reactive Protein (0.00-1.30) mg/dL 05/06/21 05/06/21 05/06/21 Range/Units 04:56 05:37 14:14 RBC (3.65-5.03) M/mm3 Hgb (10.1-14.3) gm/dl Hct (30.3-42.9) % RDW (13.2-15.2) % Plt Count (140-440) K/mm3 Sodium 134 L (137-145) mmol/L Potassium 5.1 H (3.6-5.0) mmol/L BUN 30 H (7-17) mg/dL Glucose 133 H (65-100) mg/dL POC Glucose 120 H (70-105) mg/dL C-Reactive Protein 7.30 H (0.00-1.30) mg/dL Assessment and Plan Cultures: Blood culture 05/02/2021 no growth Sputum culture 05/02/2021 no growth A/P: 89-year-old female past medical history hypertension now with: #Severe COVID-19 pneumonia: Patient presented with a week of symptoms, chest x- ray with diffuse bilateral infiltrates, admission O2 sats on room air. Inflammatory markers elevated #Acute hypoxemic respiratory failure: Likely secondary to COVID-19 infection. Currently on the vent #PEA arrest: ROSC achieved after 1 round of epi Recommendations: -Dexamethasone 6 mg IV/PO daily for 10 days -Obtain q48-72h inflammatory markers - ferritin, Ddimer, CRP, LDH -Complete 5 days cefepime -Anticoagulation per hospital protocol -Proning as able Thank you for the consult, we will continue to follow. MD Munira Barrera [facility] O: [phone] F: [phone]
[2021-05-06 16:10] LABS: ABG Base Excess 3.6 mmol/L (-2.0-3.0); ABG Methemoglobin 0.4 % (0.0-1.5); ABG Oxygen Saturation 97.4 % (95.0-99.0); ABG PCO2 42.1 mm Hg; ABG PH 7.441 pH Units (7.350-7.450); ABG PO2 72.2 mm Hg (80.0-90.0)
[2021-05-06] MEDS ORDERED: SODIUM POLYSTYRENE 15 GM/60 ML ORAL LIQD PO ONE ×2 (17:50→20:00)
--- NOTE | 2021-05-06 20:31 | Progress Note ---
<AR VICK - Last Filed: 05/06/21 20:30> Assessment and Plan Assessment and plan: Assessment and Plan This is a 89-year-old female HTN, legally blind, nicotine abuse, [place] and recent UTI initially admitted for bradycardia and AMS. Patient subsequently PEA arrested with ROSC in the ED was intubated and placed on ventilatory support. Then was taken to [facility]ing Control Officer for emergent transvenous pacemaker placement by Madhavi porras. Symptomatic bradycardia, s/p PEA arrest, cardiogenic shock, h/o hypertension -S/p transvenous pacemaker -Cardiology consulted, appreciate recommendations -S/p atropine with transient response-> PEA arrest -S/p dopamine drip -05/02 echocardiogram shows EF of 65 to 70% -Started on p.o. hydralazine for hypertension -Blood pressure monitor per protocol Acute hypoxic respiratory failure -Intubated on 05/02 with 7.0 ETT at 22 at the lips -CCM consulted, appreciate recommendations -A.m. vent settings AC tidal volume 350, rate 20, PEEP 6, 30% FiO2 -See RT notes for titration -ABG and CXR per [facility] -VAP bundle -Continuous SPO2 monitoring Severe COVID-19 pneumonia -CXR showed diffuse bilateral infiltrates, hypoxia on admission -Infectious disease consulted, patient recommendations -Dexamethasone for 10 days -Complete cefepime for 5 days -Anticoagulation per protocol -Trend COVID-19 inflammatory markers -Droplet/isolation precautions Acute metabolic encephalopathy, h/o legally blind -Avoid delirium -Maintain sleep-wake cycle -Sedated with fentanyl and propofol -Hold propofol due to transfusions pacer in place -RASS goal 0 to -1 Severe constipation, transaminitis -24 hours +1547 mL -No BM recorded since admit -05/03 KUB shows moderate to severe constipation -BR: Colace, Senokot -PPI -Trend LFT Thrombocytopenia, anemia, leukopenia -HIT panel pending -Platelets noted 73 K -SCD to bilateral lower extremity while in bed -Trend CBC -Transfuse hemoglobin less than 7 -Hold chemical anticoagulation for now Hyperkalemia -Kayexalate -Trend potassium Sick thyroid syndrome -Levothyroxine -TSH 10.35, free T4 0.61 The high probability of a clinically significant, sudden or life threatening deterioration of the [multi] system(s) required my full and direct attention, intervention and personal management. The aggregate critical care time was [60] minutes. This time is in addition to time spent performing reported procedures but includes the following: [x] Data Review and interpretation [x] Patient assessment and monitoring of vital signs [x] Documentation [x] Medication orders and management Disposition Plan: icu Total Time Spent with Patient (Minutes): 60 History Interval history: This is a 89-year-old female with hypertension, legally blind, recent UTI, nicotine abuse hard of hearing who presented to the emergency department on 05/02 with AMS, decreased p.o. of note, bradycardia via EMS. Per family patient has been exhibiting mumbling/hallucination/strange paranoid behavior approximately 2 weeks prior to presentation and was seen by her PCP who noticed that her blood pressure was extremely elevated in the office documented systolic of 240 and she was treated for high blood pressure and UTI at that time. She improved after this per family but subsequently worsened and request to same behavior exhibited 2 weeks ago and became unresponsive prior to arrival. Per EMS patient was noted to be bradycardic to 38 bpm and given atropine with improvement in heart rate to 65 however the patient shortly thereafter bradyed down to 45 bpm. In the emergency department patient was confused. The emergency department patient lost a pulse and went into PEA arrest and ACLS was initiated by ED staff and ROSC was achieved after 1 round of epinephrine. Patient was taken immediately to the Parking Control Officer by cardiology for transvenous pacemaker placement and was intubated. Patient was admitted to the hospitalist service with symptomatic bradycardia, s/p cardiac arrest, acute hypoxic respiratory failure, cardiogenic shock, electrode imbalances, hypothermia, acute metabolic encephalopathy, euthyroid sick syndrome, transaminitis with consults to cardiology, pulmonology and eventually infectious disease. Hospital Course to Date: 05/03: s/p cardiac arrest, remains unresponsive, not on any sedation. +gag/cough and corneal reflex, pending CT head/brain. Patient H&H also dropped this am, 1unit of PRBCs ordered. Hyperkalemia was treated per protoocl, repeat BMP at 1600. BR was initiated for severe constipation, TF was initiated. 05/04: Patient is awake this am, following simple commands. Off dopamine gtt and Transvenous pacer at a back rate of 60. COVID PCR +, patient is on IV Abx and IV steroids. Awaiting cardio recommendation, if no plan for PPM insertion, plan for PST for possible extubation. 05/05: On sedation this am due to increase agitation. Patient failed SAT this am. 1unit ordered for low H&H this am with worsening in thrombocytopenia, AC held and stool occult ordered. Transvenous pacer still present at a back up rate of 50, patient SR on the monitor this am, HR in the 60s. Plan for possible TVP removal tomorrow by Cardio. 05/06: Patient tried on PSV today, hydralazine p.o. for hypertension (initial DCCV but discontinued due to transvenous pacemaker in place), HIT panel ordered. Hospitalist Physical - Constitutional Vitals: Temp Pulse Resp BP Pulse Ox 97.3 F L 75 14 168/61 97 05/06/21 20:00 05/06/21 19:42 05/06/21 15:46 05/06/21 19:42 05/06/21 19:42 General appearance: Present: no acute distress, other (Intubated and sedated) - EENT Eyes: Present: PERRL, EOM intact ENT: hearing intact, clear oral mucosa, dentition normal - Neck Neck: Present: normal ROM - Respiratory Respiratory effort: normal Respiratory: bilateral: diminished - Cardiovascular Rhythm: regular Heart Sounds: Present: S1 & S2. Absent: systolic murmur, diastolic murmur - Extremities Extremities: no ischemia, pulses intact, pulses symmetrical, No edema, normal temperature, normal color Peripheral Pulses: within normal limits - Abdominal General gastrointestinal: soft, non-tender, non-distended, normal bowel sounds - Integumentary Integumentary: Present: warm, dry - Psychiatric Psychiatric: cooperative - Neurologic Neurologic: CNII-XII intact, moves all extremities - Allied Health Allied health notes reviewed: nursing, RT, social work HEART Score - HEART Score Troponin: Troponin T < 0.010 ng/mL (0.00-0.029) 05/02/21 05:16 Results - Labs CBC & Chem 7: 05/06/21 04:56 05/06/21 04:56 Labs: Laboratory Last Values WBC 6.7 K/mm3 (4.5-11.0) 05/06/21 04:56 RBC 2.54 M/mm3 (3.65-5.03) L 05/06/21 04:56 Hgb 7.7 gm/dl (10.1-14.3) L 05/06/21 04:56 Hct 23.2 % (30.3-42.9) L 05/06/21 04:56 MCV 91 fl (79-97) 05/06/21 04:56 MCH 30 pg (28-32) 05/06/21 04:56 MCHC 33 % (30-34) 05/06/21 04:56 RDW 18.1 % (13.2-15.2) H 05/06/21 04:56 Plt Count 73 K/mm3 (140-440) L 05/06/21 04:56 Lymph % (Auto) 10.4 % (13.4-35.0) L 05/04/21 09:41 [place] % (Auto) 4.9 % (0.0-7.3) 05/04/21 09:41 Eos % (Auto) 0.0 % (0.0-4.3) 05/04/21 09:41 Baso % (Auto) 0.0 % (0.0-1.8) 05/04/21 09:41 Lymph # (Auto) 0.6 K/mm3 (1.2-5.4) L 05/04/21 09:41 [place] # (Auto) 0.3 K/mm3 (0.0-0.8) 05/04/21 09:41 Eos # (Auto) 0.0 K/mm3 (0.0-0.4) 05/04/21 09:41 Baso # (Auto) 0.0 K/mm3 (0.0-0.1) 05/04/21 09:41 Add Manual Diff Complete 05/03/21 04:52 Total Counted 100 05/03/21 04:52 Seg Neutrophils % 84.7 % (40.0-70.0) H 05/04/21 09:41 Seg Neuts % (Manual) 86.0 % (40.0-70.0) H 05/03/21 04:52 Band Neutrophils % 8.0 % 05/03/21 04:52 Lymphocytes % (Manual) 3.0 % (13.4-35.0) L 05/03/21 04:52 Reactive Lymphs % (Man) 0 % 05/03/21 04:52 Monocytes % (Manual) 2.0 % (0.0-7.3) 05/03/21 04:52 Eosinophils % (Manual) 1.0 % (0.0-4.3) 05/03/21 04:52 Basophils % (Manual) 0 % (0.0-1.8) 05/03/21 04:52 Metamyelocytes % 0 % 05/03/21 04:52 Myelocytes % 0 % 05/03/21 04:52 Promyelocytes % 0 % 05/03/21 04:52 Blast Cells % 0 % 05/03/21 04:52 Nucleated RBC % Not Reportable 05/03/21 04:52 Seg Neutrophils # 4.6 K/mm3 (1.8-7.7) 05/04/21 09:41 Seg Neutrophils # Man 3.9 K/mm3 (1.8-7.7) 05/03/21 04:52 Band Neutrophils # 0.4 K/mm3 05/03/21 04:52 Lymphocytes # (Manual) 0.1 K/mm3 (1.2-5.4) L 05/03/21 04:52 Abs React Lymphs (Man) 0.0 K/mm3 05/03/21 04:52 Monocytes # (Manual) 0.1 K/mm3 (0.0-0.8) 05/03/21 04:52 Eosinophils # (Manual) 0.0 K/mm3 (0.0-0.4) 05/03/21 04:52 Basophils # (Manual) 0.0 K/mm3 (0.0-0.1) 05/03/21 04:52 Metamyelocytes # 0.0 K/mm3 05/03/21 04:52 Myelocytes # 0.0 K/mm3 05/03/21 04:52 Promyelocytes # 0.0 K/mm3 05/03/21 04:52 Blast Cells # 0.0 K/mm3 05/03/21 04:52 WBC Morphology Not Reportable 05/03/21 04:52 Hypersegmented Neuts Not Reportable 05/03/21 04:52 Hyposegmented Neuts Not Reportable 05/03/21 04:52 Hypogranular Neuts Not Reportable 05/03/21 04:52 Smudge Cells Not Reportable 05/03/21 04:52 Toxic Granulation Not Reportable 05/03/21 04:52 Toxic Vacuolation Not Reportable 05/03/21 04:52 Dohle Bodies Not Reportable 05/03/21 04:52 Pelger-Huet Anomaly Not Reportable 05/03/21 04:52 Shanti Rods Not Reportable 05/03/21 04:52 Platelet Estimate Consistent w auto 05/03/21 04:52 Clumped Platelets Not Reportable 05/03/21 04:52 Plt Clumps, EDTA Not Reportable 05/03/21 04:52 Large Platelets Not Reportable 05/03/21 04:52 Giant Platelets Not Reportable 05/03/21 04:52 Platelet Satelliting Not Reportable 05/03/21 04:52 Plt Morphology Comment Not Reportable 05/03/21 04:52 RBC Morphology Not Reportable 05/03/21 04:52 Dimorphic RBCs Not Reportable 05/03/21 04:52 Polychromasia Not Reportable 05/03/21 04:52 Hypochromasia 2+ 05/03/21 04:52 Poikilocytosis Not Reportable 05/03/21 04:52 Anisocytosis 1+ 05/03/21 04:52 Microcytosis Not Reportable 05/03/21 04:52 Macrocytosis Few 05/03/21 04:52 Spherocytes Not Reportable 05/03/21 04:52 Pappenheimer Bodies Not Reportable 05/03/21 04:52 Sickle Cells Not Reportable 05/03/21 04:52 Target Cells Not Reportable 05/03/21 04:52 Tear Drop Cells Not Reportable 05/03/21 04:52 Ovalocytes Few 05/03/21 04:52 Helmet Cells Not Reportable 05/03/21 04:52 Marcelino-Renovo Bodies Not Reportable 05/03/21 04:52 [place] Rings Not Reportable 05/03/21 04:52 [place] Cells Not Reportable 05/03/21 04:52 Bite Cells Not Reportable 05/03/21 04:52 Crenated Cell Not Reportable 05/03/21 04:52 Elliptocytes Not Reportable 05/03/21 04:52 Acanthocytes (Spur) Not Reportable 05/03/21 04:52 Rouleaux Not Reportable 05/03/21 04:52 Hemoglobin C Crystals Not Reportable 05/03/21 04:52 Schistocytes Not Reportable 05/03/21 04:52 Malaria parasites Not Reportable 05/03/21 04:52 Anatoly Bodies Not Reportable 05/03/21 04:52 Hem Pathologist Commnt No 05/03/21 04:52 PT 15.1 Sec. (12.2-14.9) H 05/02/21 05:16 INR 1.07 (0.87-1.13) 05/02/21 05:16 APTT 41.7 Sec. (24.2-36.6) H 05/02/21 05:16 ABG pH 7.441 pH Units (7.350-7.450) 05/06/21 15:40 ABG pCO2 42.1 mm Hg 05/06/21 15:40 ABG pO2 72.2 mm Hg (80.0-90.0) L 05/06/21 15:40 ABG HCO3 28.0 mmol/L (20.0-26.0) H 05/06/21 15:40 ABG O2 Saturation 97.4 % (95.0-99.0) 05/06/21 15:40 ABG O2 Content 7.7 (0.0-44) 05/06/21 15:40 ABG Base Excess 3.6 mmol/L (-2.0-3.0) H 05/06/21 15:40 ABG Hemoglobin 5.6 gm/dl (12.0-16.0) L 05/06/21 15:40 ABG Carboxyhemoglobin 1.4 % (0.0-5.0) 05/06/21 15:40 ABG Methemoglobin 0.4 % (0.0-1.5) 05/06/21 15:40 Oxyhemoglobin 95.6 % (95.0-99.0) 05/06/21 15:40 FiO2 30 % 05/06/21 15:40 Sodium 134 mmol/L (137-145) L 05/06/21 04:56 Potassium 5.1 mmol/L (3.6-5.0) H 05/06/21 04:56 Chloride 98.6 mmol/L (98-107) 05/06/21 04:56 Carbon Dioxide 24 mmol/L (22-30) 05/06/21 04:56 Anion Gap 17 mmol/L 05/06/21 04:56 BUN 30 mg/dL (7-17) H 05/06/21 04:56 Creatinine 1.0 mg/dL (0.6-1.2) 05/06/21 04:56 Estimated GFR > 60 ml/min 05/06/21 04:56 BUN/Creatinine Ratio 30 % 05/06/21 04:56 Glucose 133 mg/dL (65-100) H 05/06/21 04:56 POC Glucose 96 mg/dL (70-105) 05/06/21 17:57 Lactic Acid 0.80 mmol/L (0.7-2.0) 05/02/21 05:53 Calcium 9.4 mg/dL (8.4-10.2) 05/06/21 04:56 Phosphorus 2.90 mg/dL (2.5-4.5) D 05/06/21 04:56 Magnesium 2.30 mg/dL (1.7-2.3) 05/06/21 04:56 Total Bilirubin 0.20 mg/dL (0.1-1.2) 05/05/21 04:35 Direct Bilirubin < 0.2 mg/dL (0-0.2) 05/05/21 04:35 Indirect Bilirubin 0.0 mg/dL 05/05/21 04:35 AST 54 units/L (5-40) H 05/05/21 04:35 ALT 70 units/L (7-56) H 05/05/21 04:35 Alkaline Phosphatase 96 units/L (35-129) 05/05/21 04:35 Total Creatine Kinase 189 units/L (30-135) H 05/02/21 05:53 Troponin T < 0.010 ng/mL (0.00-0.029) 05/02/21 05:16 C-Reactive Protein 7.30 mg/dL (0.00-1.30) H 05/06/21 14:14 NT-Pro-B Natriuret Pep 341.7 pg/mL (0-900) 05/02/21 05:17 Total Protein 8.4 g/dL (6.3-8.2) H 05/05/21 04:35 Albumin 2.5 g/dL (3.9-5) L 05/05/21 04:35 Albumin/Globulin Ratio 0.4 % 05/05/21 04:35 Procalcitonin 0.74 ng/mL (<0.15) 05/03/21 04:52 TSH 10.350 mlU/mL (0.270-4.200) H 05/02/21 06:41 Free T4 0.61 ng/dL (0.76-1.46) L 05/02/21 06:41 Coronavirus (PCR) Positive (Negative) A 05/03/21 Unknown Blood Type O POSITIVE 05/03/21 14:13 Antibody Screen Negative 05/03/21 14:13 Crossmatch See Detail 05/03/21 14:13 Microbiology: Microbiology 05/02/21 16:04 Peripheral/Venous Blood Culture - Preliminary NO GROWTH AFTER 4 DAYS 05/02/21 15:56 Peripheral/Venous Blood Culture - Preliminary NO GROWTH AFTER 4 DAYS Peoples/IV: Voiding Method Indwelling Catheter Active Medications - Current Medications Current Medications: Generic Name Dose Route Start Last Admin Trade Name Freq PRN Reason Stop Dose Admin Acetaminophen 650 mg 05/02/21 08:59 Acetaminophen 325 Mg/10.15 Ml Oral Liqd Unit Dose FEEDTUBE Q6H PRN Pain MILD(1-3)/Fever >100.5/[place] Albuterol/Ipratropium 1 ampul 05/04/21 08:00 05/06/21 19:53 Ipratropium/Albuterol Sulfate 3 Ml Ampul.Neb IH Not Given TIDRT JHON Budesonide 0.5 mg 05/02/21 10:00 05/06/21 19:53 Budesonide 0.5 Mg/2 Ml Nebu IH Not Given Q12HRT [facility] Dexamethasone 6 mg 05/07/21 10:00 Dexamethasone 4 Mg/Ml Vial IV 05/12/21 10:01 Q24HR JHON Dextrose 0 ml 05/03/21 11:20 05/03/21 17:02 Dextrose 10% *Hypoglycemia IV 100 ml PRN PRN Administration Hypoglycemia Docusate Sodium 100 mg 05/03/21 12:00 05/06/21 10:33 Docusate Sodium 100 Mg/10 Ml Oral Liqd PO 100 mg BID JHON Administration Famotidine 10 mg 05/06/21 22:00 Famotidine 10 Mg Tab FEEDTUBE BID JHON Fentanyl 50 mcg 05/03/21 11:30 05/04/21 18:18 Fentanyl 100 Mcg/2 Ml Inj IV 50 mcg Q10MIN PRN Administration ANALGESIA Hydralazine HCl 25 mg 05/06/21 22:00 Hydralazine 25 Mg Tab PO Q8HR JHON NORepinephrine/NS 8 MG-250 ML 8 mg in 250 mls @ 3.75 mls/hr 05/02/21 10:00 Norepinephrine/Ns 8 Mg-250 Ml (Double Conc) IV TITRATE JHON Protocol 2 MCG/MIN Fentanyl Citrate 2,000 mcg in 100 mls @ 2.397 mls/hr 05/03/21 12:00 05/06/21 19:30 Fentanyl Drip Premix IV 2 mcg/kg/hr TITR JHON 4.794 mls/hr Titration Protocol 1 MCG/KG/HR Propofol 1,000 mg in 100 mls @ 1.438 mls/hr 05/04/21 22:00 05/06/21 13:05 Diprivan 10 Mg/Ml IV 0 mcg/kg/min TITR JHON 0 mls/hr Titration Protocol 5 MCG/KG/MIN Cefepime HCl 1 gm in 100 mls @ 200 mls/hr 05/05/21 12:00 05/06/21 11:09 Cefepime/Ns 1 Gm/100 Ml IV 05/07/21 00:29 200 mls/hr Q12H JHON Administration Protocol Insulin Human Lispro 0 unit 05/03/21 22:00 05/06/21 19:21 Insulin Lispro 100 Unit/Ml SUB-Q Not Given Q4HR [facility] Protocol Labetalol HCl 10 mg 05/06/21 12:44 05/06/21 13:04 Labetalol 20 Mg/4 Ml Inj IV 10 mg Q4HR PRN Administration Hypertension Levothyroxine Sodium 25 mcg 05/02/21 06:00 05/06/21 06:41 Levothyroxine 100 Mcg Inj IV 25 mcg DAILY@0600 [facility] Administration Ondansetron HCl 4 mg 05/02/21 08:59 Ondansetron 4 Mg/2 Ml Inj IV Q8H PRN Nausea And Vomiting Polyethylene Glycol 17 gm 05/03/21 12:00 05/06/21 10:32 Polyethylene Glycol 3350 17 Gm Powder PO 17 gm QDAY JHON Administration Senna 17.6 mg 05/03/21 12:00 05/06/21 10:33 Sennosides Oral Liqd 8.8 Mg/5 Ml Oral Liqd PO 17.6 mg Q12HR JHON Administration Sodium Chloride 10 ml 05/02/21 10:00 05/06/21 12:52 Sodium Chloride 0.9% 10 Ml Flush Syringe IV Not Given BID JHON Sodium Chloride 10 ml 05/02/21 08:59 Sodium Chloride 0.9% 10 Ml Flush Syringe IV PRN PRN LINE FLUSH Sodium Chloride 10 ml 05/06/21 09:58 05/06/21 10:33 Sodium Chloride 0.9% 50 Ml Ivpb IV 10 ml PRN PRN Administration FLUSH Nutrition/Malnutrition Assess - Dietary Evaluation Nutrition/Malnutrition Findings: Nutrition Notes Start: 05/03/21 14:27 Freq: Status: Active Protocol: Document 05/06/21 14:58 NATHALIE (Rec: 05/06/21 15:25 NATHALIE [id number]) Nutrition Notes Initial or Follow up Brief Note Current Diagnosis Hypertension,Respiratory Failure Other Pertinent Diagnosis COVID-19, Bradycardia/PEA arrest/ROSC, Cardiogenic shock , Acute Metabolic E Current Diet TF-Osmolite 1.5 Nando @ 40 ml/hr (since D 05/03). Height 5 ft 6 in Weight 47.94 kg [place] Body Weight (kg) 59.09 BMI 17.0 Weight change and time frame NO body weight changed in 3 days reported. Weight Status Underweight Subjective/Other Information RD consult for routine F/U on TF tolerance and Low BMI assessment. Pt continues on mechanical ventilation, according to Physical Assessment History notes. Pt is tolerating TF, but very combative when weaned off propofol and attempts to pull the tube every time. Pt's Low BMI seems to correspond to a natural body composition, and not related to a sudden loss of body weight nor chronic malnutrition, since none were mentioned in the Physical Assessment History or the Progress notes. Percent of energy/protein needs met: Prescribed Osmolite 1.5 Nando @ 40 ml/hr provides for energy/ protein needs (1440 Kcal/60 g) during LOS, 100% Kcal; 100%AA . #1 Nutrition Diagnosis Inadequate oral intake Diagnosis Progress(for reassessment Continues documentation) Is patient on ventilator? Yes Is Patient Ambulatory and/or Out of Bed No REE-([place]-confined to bed) 1119.252 Kcal/Kg value to use for calculation 30 Approximate Energy Requirements Using 1438 kcal/Kg Calculation Used for Recommendations 70-80% of EEN Additional Notes 15-20 Kcal/Kg ABW. Protein: 1.2-2 g/Kg; 58-96 g/ day. Fluids: 1 ml/Kcal, or as per MD. Nutrition Intervention Nutrition Support: Continue Osmolite 1.5 Nando @ 40 ml/hr. Flush: 120 ml water Q 4 hr, or as per MD. Kcal 1,440 Protein (gm) 60 Carbohydrates (gm) 195 Fat (gm) 47 Fluid (mL) 732 Fiber (gm) 0 % RDI: 100% Kcal; 100%AA. Goal #1 Provide at least 75% of energy /protein needs through Enteral Feeding during LOS. Goal #2 Maintain body weight within +/ -3% of admission body weight during LOS. Follow-Up By: 05/13/21 Additional Comments Continue monitoring TF tolerance and BM. <SHERYL WHITEHEAD - Last Filed: 05/10/21 09:42> Assessment and Plan Assessment and plan: I saw and evaluated the patient. I agree with the findings and the plan of care as documented in the Nurse Practitioner's~note, with the following corrections and additions. Hospitalist Physical - Constitutional Vitals: Temp Pulse Resp BP Pulse Ox 98.6 F 91 H 20 160/79 96 05/10/21 08:00 05/10/21 09:10 05/10/21 09:10 05/10/21 09:00 05/10/21 09:00 HEART Score - HEART Score Troponin: Troponin T < 0.010 ng/mL (0.00-0.029) 05/02/21 05:16 Results - Labs CBC & Chem 7: 05/10/21 04:51 05/10/21 04:51 Labs: Laboratory Last Values WBC 9.1 K/mm3 (4.5-11.0) 05/10/21 04:51 RBC 2.59 M/mm3 (3.65-5.03) L 05/10/21 04:51 Hgb 7.9 gm/dl (10.1-14.3) L 05/10/21 04:51 Hct 24.0 % (30.3-42.9) L 05/10/21 04:51 MCV 92 fl (79-97) 05/10/21 04:51 MCH 30 pg (28-32) 05/10/21 04:51 MCHC 33 % (30-34) 05/10/21 04:51 RDW 17.7 % (13.2-15.2) H 05/10/21 04:51 Plt Count 159 K/mm3 (140-440) 05/10/21 04:51 Lymph % (Auto) 10.4 % (13.4-35.0) L 05/04/21 09:41 [place] % (Auto) 4.9 % (0.0-7.3) 05/04/21 09:41 Eos % (Auto) 0.0 % (0.0-4.3) 05/04/21 09:41 Baso % (Auto) 0.0 % (0.0-1.8) 05/04/21 09:41 Lymph # (Auto) 0.6 K/mm3 (1.2-5.4) L 05/04/21 09:41 [facility] # (Auto) 0.3 K/mm3 (0.0-0.8) 05/04/21 09:41 Eos # (Auto) 0.0 K/mm3 (0.0-0.4) 05/04/21 09:41 Baso # (Auto) 0.0 K/mm3 (0.0-0.1) 05/04/21 09:41 Add Manual Diff Complete 05/03/21 04:52 Total Counted 100 05/03/21 04:52 Seg Neutrophils % 84.7 % (40.0-70.0) H 05/04/21 09:41 Seg Neuts % (Manual) 86.0 % (40.0-70.0) H 05/03/21 04:52 Band Neutrophils % 8.0 % 05/03/21 04:52 Lymphocytes % (Manual) 3.0 % (13.4-35.0) L 05/03/21 04:52 Reactive Lymphs % (Man) 0 % 05/03/21 04:52 Monocytes % (Manual) 2.0 % (0.0-7.3) 05/03/21 04:52 Eosinophils % (Manual) 1.0 % (0.0-4.3) 05/03/21 04:52 Basophils % (Manual) 0 % (0.0-1.8) 05/03/21 04:52 Metamyelocytes % 0 % 05/03/21 04:52 Myelocytes % 0 % 05/03/21 04:52 Promyelocytes % 0 % 05/03/21 04:52 Blast Cells % 0 % 05/03/21 04:52 Nucleated RBC % Not Reportable 05/03/21 04:52 Seg Neutrophils # 4.6 K/mm3 (1.8-7.7) 05/04/21 09:41 Seg Neutrophils # Man 3.9 K/mm3 (1.8-7.7) 05/03/21 04:52 Band Neutrophils # 0.4 K/mm3 05/03/21 04:52 Lymphocytes # (Manual) 0.1 K/mm3 (1.2-5.4) L 05/03/21 04:52 Abs React Lymphs (Man) 0.0 K/mm3 05/03/21 04:52 Monocytes # (Manual) 0.1 K/mm3 (0.0-0.8) 05/03/21 04:52 Eosinophils # (Manual) 0.0 K/mm3 (0.0-0.4) 05/03/21 04:52 Basophils # (Manual) 0.0 K/mm3 (0.0-0.1) 05/03/21 04:52 Metamyelocytes # 0.0 K/mm3 05/03/21 04:52 Myelocytes # 0.0 K/mm3 05/03/21 04:52 Promyelocytes # 0.0 K/mm3 05/03/21 04:52 Blast Cells # 0.0 K/mm3 05/03/21 04:52 WBC Morphology Not Reportable 05/03/21 04:52 Hypersegmented Neuts Not Reportable 05/03/21 04:52 Hyposegmented Neuts Not Reportable 05/03/21 04:52 Hypogranular Neuts Not Reportable 05/03/21 04:52 Smudge Cells Not Reportable 05/03/21 04:52 Toxic Granulation Not Reportable 05/03/21 04:52 Toxic Vacuolation Not Reportable 05/03/21 04:52 Dohle Bodies Not Reportable 05/03/21 04:52 Pelger-Huet Anomaly Not Reportable 05/03/21 04:52 Shanti Rods Not Reportable 05/03/21 04:52 Platelet Estimate Consistent w auto 05/03/21 04:52 Clumped Platelets Not Reportable 05/03/21 04:52 Plt Clumps, EDTA Not Reportable 05/03/21 04:52 Large Platelets Not Reportable 05/03/21 04:52 Giant Platelets Not Reportable 05/03/21 04:52 Platelet Satelliting Not Reportable 05/03/21 04:52 Plt Morphology Comment Not Reportable 05/03/21 04:52 RBC Morphology Not Reportable 05/03/21 04:52 Dimorphic RBCs Not Reportable 05/03/21 04:52 Polychromasia Not Reportable 05/03/21 04:52 Hypochromasia 2+ 05/03/21 04:52 Poikilocytosis Not Reportable 05/03/21 04:52 Anisocytosis 1+ 05/03/21 04:52 Microcytosis Not Reportable 05/03/21 04:52 Macrocytosis Few 05/03/21 04:52 Spherocytes Not Reportable 05/03/21 04:52 Pappenheimer Bodies Not Reportable 05/03/21 04:52 Sickle Cells Not Reportable 05/03/21 04:52 Target Cells Not Reportable 05/03/21 04:52 Tear Drop Cells Not Reportable 05/03/21 04:52 Ovalocytes Few 05/03/21 04:52 Helmet Cells Not Reportable 05/03/21 04:52 Marcelino-Renovo Bodies Not Reportable 05/03/21 04:52 [place] Rings Not Reportable 05/03/21 04:52 [place] Cells Not Reportable 05/03/21 04:52 Bite Cells Not Reportable 05/03/21 04:52 Crenated Cell Not Reportable 05/03/21 04:52 Elliptocytes Not Reportable 05/03/21 04:52 Acanthocytes (Spur) Not Reportable 05/03/21 04:52 Rouleaux Not Reportable 05/03/21 04:52 Hemoglobin C Crystals Not Reportable 05/03/21 04:52 Schistocytes Not Reportable 05/03/21 04:52 Malaria parasites Not Reportable 05/03/21 04:52 Anatoly Bodies Not Reportable 05/03/21 04:52 Hem Pathologist Commnt No 05/03/21 04:52 PT 15.1 Sec. (12.2-14.9) H 05/02/21 05:16 INR 1.07 (0.87-1.13) 05/02/21 05:16 APTT 41.7 Sec. (24.2-36.6) H 05/02/21 05:16 D-Dimer 2342.13 ng/mlDDU (0-234) H 05/09/21 06:47 ABG pH 7.467 pH Units (7.350-7.450) H 05/09/21 15:20 ABG pCO2 44.6 mm Hg 05/09/21 15:20 ABG pO2 58.7 mm Hg (80.0-90.0) L 05/09/21 15:20 ABG HCO3 31.5 mmol/L (20.0-26.0) H 05/09/21 15:20 ABG O2 Saturation 99.3 % (95.0-99.0) H 05/09/21 15:20 ABG O2 Content 5.7 (0.0-44) 05/09/21 15:20 ABG Base Excess 7.2 mmol/L (-2.0-3.0) H 05/09/21 15:20 ABG Hemoglobin Not Reportable 05/09/21 15:20 ABG Carboxyhemoglobin 2.0 % (0.0-5.0) 05/09/21 15:20 ABG Methemoglobin 0.2 % (0.0-1.5) 05/09/21 15:20 Oxyhemoglobin 97.1 % (95.0-99.0) 05/09/21 15:20 FiO2 35 % 05/09/21 15:20 Sodium 139 mmol/L (137-145) 05/10/21 04:51 Potassium 5.0 mmol/L (3.6-5.0) 05/10/21 04:51 Chloride 98.8 mmol/L (98-107) 05/10/21 04:51 Carbon Dioxide 29 mmol/L (22-30) 05/10/21 04:51 Anion Gap 16 mmol/L 05/10/21 04:51 BUN 47 mg/dL (7-17) H 05/10/21 04:51 Creatinine 1.0 mg/dL (0.6-1.2) 05/10/21 04:51 Estimated GFR > 60 ml/min 05/10/21 04:51 BUN/Creatinine Ratio 47 % 05/10/21 04:51 Glucose 125 mg/dL (65-100) H 05/10/21 04:51 POC Glucose 142 mg/dL (70-105) H 05/10/21 08:10 Lactic Acid 0.80 mmol/L (0.7-2.0) 05/02/21 05:53 Calcium 9.4 mg/dL (8.4-10.2) 05/10/21 04:51 Phosphorus 2.90 mg/dL (2.5-4.5) D 05/06/21 04:56 Magnesium 2.30 mg/dL (1.7-2.3) 05/06/21 04:56 Ferritin 500.1 ng/mL (10.0-200.0) H 05/09/21 06:47 Total Bilirubin 0.20 mg/dL (0.1-1.2) 05/09/21 13:16 Direct Bilirubin < 0.2 mg/dL (0-0.2) 05/09/21 13:16 Indirect Bilirubin 0.0 mg/dL 05/09/21 13:16 AST 28 units/L (5-40) 05/09/21 13:16 ALT 37 units/L (7-56) 05/09/21 13:16 Alkaline Phosphatase 100 units/L (35-129) 05/09/21 13:16 Lactate Dehydrogenase 212 units/L (91-180) H 05/09/21 06:47 Total Creatine Kinase 189 units/L (30-135) H 05/02/21 05:53 Troponin T < 0.010 ng/mL (0.00-0.029) 05/02/21 05:16 C-Reactive Protein 12.90 mg/dL (0.00-1.30) H 05/09/21 06:47 NT-Pro-B Natriuret Pep 341.7 pg/mL (0-900) 05/02/21 05:17 Total Protein 8.3 g/dL (6.3-8.2) H 05/09/21 13:16 Albumin 2.6 g/dL (3.9-5) L 05/09/21 13:16 Albumin/Globulin Ratio 0.5 % 05/09/21 13:16 Triglycerides 62 mg/dL (2-149) 05/07/21 04:34 Procalcitonin 0.74 ng/mL (<0.15) 05/03/21 04:52 TSH 9.910 mlU/mL (0.270-4.200) H 05/07/21 04:34 Free T4 0.61 ng/dL (0.76-1.46) L 05/07/21 04:34 Coronavirus (PCR) Positive (Negative) A 05/03/21 Unknown Blood Type O POSITIVE 05/03/21 14:13 Antibody Screen Negative 05/03/21 14:13 Crossmatch See Detail 05/03/21 14:13 Peoples/IV: Voiding Method Indwelling Catheter Active Medications - Current Medications Current Medications: Generic Name Dose Route Start Last Admin Trade Name Freq PRN Reason Stop Dose Admin Acetaminophen 650 mg 05/02/21 08:59 Acetaminophen 325 Mg/10.15 Ml Oral Liqd Unit Dose FEEDTUBE Q6H PRN Pain MILD(1-3)/Fever >100.5/[place] Albuterol/Ipratropium 1 ampul 05/04/21 08:00 05/10/21 09:10 Ipratropium/Albuterol Sulfate 3 Ml Ampul.Neb IH 1 ampul TIDRT JHON Administration Budesonide 0.5 mg 05/02/21 10:00 05/10/21 09:10 Budesonide 0.5 Mg/2 Ml Nebu IH 0.5 mg Q12HRT JHON Administration Dexamethasone 6 mg 05/07/21 10:00 05/09/21 09:33 Dexamethasone 4 Mg/Ml Vial IV 05/12/21 10:01 6 mg Q24HR JHON Administration Dextrose 0 ml 05/03/21 11:20 05/07/21 05:45 Dextrose 10% *Hypoglycemia IV 50 ml PRN PRN Administration Hypoglycemia Docusate Sodium 100 mg 05/03/21 12:00 05/09/21 21:57 Docusate Sodium 100 Mg/10 Ml Oral Liqd PO 100 mg BID JHON Administration Famotidine 10 mg 05/06/21 22:00 05/09/21 21:58 Famotidine 10 Mg Tab FEEDTUBE 10 mg BID JHON Administration Fentanyl 50 mcg 05/03/21 11:30 05/04/21 18:18 Fentanyl 100 Mcg/2 Ml Inj IV 50 mcg Q10MIN PRN Administration ANALGESIA Furosemide 20 mg 05/08/21 14:00 01/27/22 09:33 Furosemide 20 Mg/2 Ml Inj IV 05/10/21 10:01 20 mg QDAY JHON Administration Hydralazine HCl 25 mg 05/06/21 22:00 05/10/21 06:17 Hydralazine 25 Mg Tab PO 25 mg Q8HR JHON Administration Hydralazine HCl 10 mg 05/07/21 19:25 05/09/21 23:10 Hydralazine 20 Mg/1 Ml Inj IV 10 mg Q4HR PRN Administration Hypertension Hydrophilic Ointment 1 applic 05/07/21 20:35 Lip Therapy Vaseline TP Q2HR PRN Dry Lips NORepinephrine/NS 8 MG-250 ML 8 mg in 250 mls @ 3.75 mls/hr 05/02/21 10:00 Norepinephrine/Ns 8 Mg-250 Ml (Double Conc) IV TITRATE [facility] Protocol 2 MCG/MIN Fentanyl Citrate 2,000 mcg in 100 mls @ 2.397 mls/hr 05/03/21 12:00 05/09/21 20:00 Fentanyl Drip Premix IV 3 mcg/kg/hr TITR JHON 7.191 mls/hr Administration Protocol 1 MCG/KG/HR Propofol 1,000 mg in 100 mls @ 1.438 mls/hr 05/04/21 22:00 05/08/21 06:17 Diprivan 10 Mg/Ml IV 0 mcg/kg/min TITR JHON 0 mls/hr Titration Protocol 5 MCG/KG/MIN Insulin Human Lispro 0 unit 05/09/21 00:00 05/10/21 06:17 Insulin Lispro 100 Unit/Ml SUB-Q Not Given Q6HR [facility] Protocol Levothyroxine Sodium 25 mcg 05/02/21 06:00 05/10/21 06:17 Levothyroxine 100 Mcg Inj IV 25 mcg DAILY@0600 [facility] Administration Multi-Ingred Cream/Lotion/Oil/Oint 1 applic 05/07/21 20:35 Mineral Oil/Petrolatum, White Ophth Oint 3.5 Gm OU Q4HR PRN Dry Eye(s) Ondansetron HCl 4 mg 05/02/21 08:59 Ondansetron 4 Mg/2 Ml Inj IV Q8H PRN Nausea And Vomiting Polyethylene Glycol 17 gm 05/03/21 12:00 05/09/21 09:33 Polyethylene Glycol 3350 17 Gm Powder PO 17 gm QDAY [facility] Administration Quetiapine Fumarate 100 mg 05/08/21 14:00 05/09/21 21:57 Quetiapine 100 Mg Tab PO 100 mg BID JHON Administration Scopolamine 1 each 05/09/21 14:00 05/09/21 14:51 Scopolamine Transdermal Patch 72 Hr TD 1 each Q3D JHON Administration Senna/Docusate Sodium 1 tab 05/07/21 22:00 05/09/21 21:58 Sennosides/Docusate Sodium 8.6/50 Mg Tab FEEDTUBE 1 tab BID JHON Administration Sodium Chloride 10 ml 05/02/21 10:00 05/09/21 21:59 Sodium Chloride 0.9% 10 Ml Flush Syringe IV 10 ml BID JHON Administration Sodium Chloride 10 ml 05/02/21 08:59 Sodium Chloride 0.9% 10 Ml Flush Syringe IV PRN PRN LINE FLUSH Sodium Chloride 10 ml 05/06/21 09:58 05/08/21 21:30 Sodium Chloride 0.9% 50 Ml Ivpb IV 10 ml PRN PRN Administration FLUSH Nutrition/Malnutrition Assess - Dietary Evaluation Nutrition/Malnutrition Findings: Nutrition Notes Start: 05/03/21 14:27 Freq: Status: Active Protocol: Document 05/08/21 09:54 NATHALIE (Rec: 05/08/21 10:21 NATHALIE [id number]) Nutrition Notes Initial or Follow up Reassessment Current Diagnosis Hypertension,Respiratory Failure Other Pertinent Diagnosis COVID-19, Pneumonia, Bradycardia/PEA arrest, Constipation, Transaminitis, M Current Diet TF-Osmolite 1.5 Nando @ 40 ml/hr (since L 05/08). Labs/Tests 05/07: BUN 25. Pertinent Medications 05/08: Levothyroxine, others nutritionally unremarkable. Height 5 ft 6 in Weight 47.94 kg [place] Body Weight (kg) 59.09 BMI 17.0 Weight change and time frame No body weight changed in 2 days reported. Weight Status Underweight Subjective/Other Information RD consult for write/manage TF . Pt was extubated 05/07, and reintubated later, due to respiratory distress. TF prescription resumed. Percent of energy/protein needs met: Prescribed Osmolite 1.5 Nando @ 40 ml/hr provides for energy/ protein needs (1440 Kcal/60 g) during LOS, 100% Kcal; 100%AA . Burn Absent Trauma Absent GI Symptoms Constipation Food Allergy No Skin Integrity/Comment No skin breakdown reported Current % PO Other Minimum of two criteria No #1 Nutrition Diagnosis Inadequate oral intake Diagnosis Progress(for reassessment Continues documentation) Is patient on ventilator? Yes Is Patient Ambulatory and/or Out of Bed No REE-([facility]-confined to bed) 1119.252 Kcal/Kg value to use for calculation 30 Approximate Energy Requirements Using 1438 kcal/Kg Calculation Used for Recommendations 70-80% of EEN Additional Notes 15-20 Kcal/Kg ABW. Protein: 1.2-2 g/Kg; 58-96 g/ day. Fluids: 1 ml/Kcal, or as per MD. Nutrition Intervention Nutrition Support: Resume Osmolite 1.5 Nando @ 40 ml/hr. Flush: 120 ml water Q 4 hr, or as per MD. Kcal 1,440 Protein (gm) 60 Carbohydrates (gm) 195 Fat (gm) 47 Fluid (mL) 732 Fiber (gm) 0 % RDI: 100% Kcal; 100%AA. Goal #1 Provide at least 75% of energy /protein needs through Enteral Feeding during LOS. Goal #2 Maintain body weight within +/ -3% of admission body weight during LOS. Follow-Up By: 05/13/21 Additional Comments Continue monitoring TF tolerance and BM.
[2021-05-06] MEDS: hydrALAZINE 25 MG TAB PO SCH (21:59)
[2021-05-06] MEDS: FAMOTIDINE 10 MG TAB FEEDTUBE SCH (21:59)
[2021-05-07] MEDS: CEFEPIME/NS 1 GM/100 ML 1 GM/100 ML BAG IV SCH (00:13)
[2021-05-07] MEDS: INSULIN LISPRO 100 UNIT/ML SUB-Q SCH ×5 (01:02→22:18)
[2021-05-07] MEDS: fentaNYL DRIP Premix 2,000 MCG/100 ML BAG IV SCH (05:09)
[2021-05-07] MEDS: LEVOTHYROXINE 100 MCG INJ IV SCH (05:10)
[2021-05-07] MEDS: hydrALAZINE 25 MG TAB PO SCH ×3 (05:10→22:24)
[2021-05-07 05:14] LABS: Hematocrit 24.7 % (30.3-42.9); Hemoglobin 8.2 gm/dl (10.1-14.3); Mean Corpuscular HGB Conc 33 % (30-34); Mean Corpuscular Volume 92 fl (79-97); Red Blood Count 2.69 M/mm3 (3.65-5.03); Red Cell Distribution Width 18.3 % (13.2-15.2)
[2021-05-07 05:22] LABS: Platelet Count 80 K/mm3 (140-440)
[2021-05-07 05:41] LABS: BUN/Creatinine Ratio 31; Blood Urea Nitrogen 25 mg/dL (7-17); Calcium 9.5 mg/dL (8.4-10.2); Hemolysis Index 2
[2021-05-07] MEDS: DEXTROSE 10% *Hypoglycemia IV PRN (05:45)
[2021-05-07] MEDS: DOCUSATE SODIUM 100 MG/10 ML ORAL LIQD PO SCH ×2 (10:35→22:24)
[2021-05-07] MEDS: SENNOSIDES ORAL LIQD 8.8 MG/5 ML ORAL LIQD PO SCH ×2 (10:35→22:34)
[2021-05-07] MEDS: FAMOTIDINE 10 MG TAB FEEDTUBE SCH ×2 (10:35→21:48)
[2021-05-07] MEDS: POLYETHYLENE GLYCOL 3350 17 GM POWDER PO SCH (10:35)
[2021-05-07] MEDS: dexAMETHasone 4 MG/ML VIAL IV SCH (10:36)
--- NOTE | 2021-05-07 13:14 | Progress Note ---
Assessment and Plan Symptomatic bradycardia with subsequent PEA arrest status post ROSC Acute hypoxic respiratory failure Cardiogenic shock Hypothyroidism Thrombocytopenia Acute metabolic encephalopathy Leukopenia Anemia Transaminitis Hypothermia Hyperkalemia - TPM removed by cardiology team - placed on SBT - get ABG after 2 hours - extubate if acceptable - follow HIT assay - continue care as below otherwise; - wean vasopressors for target MAP > 65 mmHg - continue Daily SAT and SBT assessment as tolerated - continue bronchodilators with pulmonary hygiene per RT - continue to wean supplemental oxygen for target O2 sat's > 90% acutely - VAP bundle addressed - continue lung protective strategies - continue bronchodilators with pulmonary hygiene per RT - wean per pulmonary driven protocols otherwise - sedation prn for target RASS 0 to -1 - AB's per ID recommendations - continue accuchecks with glycemic control per SSI (While critically ill target blood glucose of 140-180 mg/dL; avoid hypoglycemia) - avoid nephrotoxins, renally dose all medications - continue to avoid benzodiazepine's, reduce the possibility of delirium - prn analgesia per CPOT score - Maintenance of sleep-wake cycle, avoid delirium - continue enteral nutritional support at goal rate as tolerated - G.I. & VTE prophylaxis (VTE prophylaxis with SCDs; She has required supportive blood transfusions and has thrombocytopenia) - PT/OT/ROM exercises - mobility protocols for pressure ulcer prophylaxis - Monitor hemodynamics closely - continue other care per attending / other consultants - discharge planning ongoing concurrently COVID SPECIFIC INTERVENTIONS - Remdesivir as per ID/Pulmonary developed protocols - continue systemic steroids for severe COVID-19 infection empirically (Dexamethasone) - follow repeat COVID tests results - zinc and vitamin C supplementation - Monitor inflammatory markers per facility protocol - ferritin, Ddimer, CRP - therapeutic anticoagulation per system Protocol based on d-dimer and clinical considerations - Continue contact and airborne isolation .... Re-evaluate in am & prn CONDITION: CRITICAL PROGNOSIS: GUARDED CODE STATUS: FULL CODE The high probability of a clinically significant, sudden or life-threatening deterioration of the [respiratory, cardiovascular & neurologic] system(s) required my full and direct attention, intervention and personal management. The aggregate critical care time was [32] minutes without overlap. Time includes spent on; [x] Data Review and interpretation [x] Patient assessment and monitoring of vital signs [x] Documentation [x] Medication orders and management Subjective Date of service: 05/07/21 Principal diagnosis: Symptomatic bradycardia; AHRF; Cardiogenic shock; Thrombocytopenia; AMS Interval history: Patient is seen today for: Symptomatic bradycardia; Acute hypoxic respiratory failure; Cardiogenic shock; Hypothyroidism; Thrombocytopenia; AMS; Hyperkalemia Seen and examined at bedside; 24hour events reviewed; nursing and respiratory care staff consulted; no adverse overnight events reported to me; resting in bed; remains on full MVS; less agitated; TPM has been removed and no nichelle- arrhythmia's; no emesis or overt aspiration; alert and afebrile Objective Vital Signs - 12hr 05/07/21 05/07/21 05/07/21 02:01 03:01 03:49 Temperature 98.9 F Pulse Rate 82 76 Pulse Rate [ From Monitor] Respiratory Rate Blood Pressure 164/136 139/51 O2 Sat by Pulse 97 96 Oximetry 05/07/21 05/07/21 05/07/21 04:00 05:00 05:10 Temperature Pulse Rate 61 74 74 Pulse Rate [ 61 From Monitor] Respiratory 22 Rate Blood Pressure 148/63 185/116 185/114 O2 Sat by Pulse 100 97 Oximetry 05/07/21 05/07/21 05/07/21 06:00 06:45 07:01 Temperature Pulse Rate 71 72 75 Pulse Rate [ From Monitor] Respiratory Rate Blood Pressure 153/73 162/72 171/80 O2 Sat by Pulse 100 98 96 Oximetry 05/07/21 05/07/21 05/07/21 08:00 08:50 12:50 Temperature 97.3 F L Pulse Rate 69 69 Pulse Rate [ From Monitor] Respiratory Rate Blood Pressure 163/79 163/79 O2 Sat by Pulse 96 96 Oximetry Constitutional: appears uncomfortable, other (elderly female with mildly inc reased respiratory effort at rest on MVS) Eyes: non-icteric ENT: oropharynx moist, other (ETT 24 cm HIMANSHU) Neck: supple, no lymphadenopathy, no JVD, other (RIJ transvenous pacemaker) Effort: mildly labored Ascultation: Bilateral: diminished breath sounds, rales Percussion: Bilateral: not dull Cardiovascular: regular rate and rhythm, other (S1,S2) Gastrointestinal: normoactive bowel sounds, soft, non-distended, other (distended suprapubic area- possibly bladder) Integumentary: normal Extremities: no cyanosis, no edema, pulses normal, no ischemia or petechiae Neurologic: non-focal exam (grossly), pupils equal and round, unable to assess, other (sedated) Psychiatric: mood appropriate, affect normal CBC and BMP: 05/07/21 04:34 05/07/21 04:34 ABG, PT/INR, D-dimer: ABG ABG pH 7.441 pH Units (7.350-7.450) 05/06/21 15:40 ABG pCO2 42.1 mm Hg 05/06/21 15:40 ABG pO2 72.2 mm Hg (80.0-90.0) L 05/06/21 15:40 ABG O2 Saturation 97.4 % (95.0-99.0) 05/06/21 15:40 PT/INR, D-dimer PT 15.1 Sec. (12.2-14.9) H 05/02/21 05:16 INR 1.07 (0.87-1.13) 05/02/21 05:16 D-Dimer 1661.00 ng/mlDDU (0-234) H 05/07/21 04:34 Abnormal lab findings: Abnormal Labs 05/02/21 05/02/21 05/02/21 05:16 05:16 05:16 WBC 2.9 L RBC 2.36 L Hgb 7.4 L Hct 22.2 L RDW 18.2 H Plt Count Lymph % (Auto) Lymph # (Auto) 0.5 L Seg Neutrophils % 76.5 H Seg Neuts % (Manual) Lymphocytes % (Manual) Lymphocytes # (Manual) PT 15.1 H APTT 41.7 H D-Dimer ABG pO2 ABG HCO3 ABG O2 Saturation ABG Base Excess ABG Hemoglobin Oxyhemoglobin Sodium 129 L Potassium 6.2 H* Chloride 97.0 L Carbon Dioxide BUN Creatinine Glucose POC Glucose Magnesium Ferritin AST ALT Lactate Dehydrogenase Total Creatine Kinase C-Reactive Protein Total Protein Albumin TSH Free T4 Coronavirus (PCR) Crossmatch 05/02/21 05/02/21 05/02/21 05:17 05:53 06:41 WBC RBC Hgb Hct RDW Plt Count Lymph % (Auto) Lymph # (Auto) Seg Neutrophils % Seg Neuts % (Manual) Lymphocytes % (Manual) Lymphocytes # (Manual) PT APTT D-Dimer ABG pO2 ABG HCO3 ABG O2 Saturation ABG Base Excess ABG Hemoglobin Oxyhemoglobin Sodium Potassium Chloride Carbon Dioxide BUN Creatinine Glucose POC Glucose Magnesium Ferritin AST 144 H ALT 115 H Lactate Dehydrogenase Total Creatine Kinase 189 H C-Reactive Protein Total Protein 9.6 H Albumin 2.9 L TSH 10.350 H Free T4 0.61 L Coronavirus (PCR) Crossmatch 05/02/21 05/02/21 05/03/21 11:50 15:56 04:52 WBC RBC 2.20 L Hgb 6.8 L Hct 20.6 L RDW 18.4 H Plt Count Lymph % (Auto) Lymph # (Auto) Seg Neutrophils % Seg Neuts % (Manual) 86.0 H Lymphocytes % (Manual) 3.0 L Lymphocytes # (Manual) 0.1 L PT APTT D-Dimer ABG pO2 352.4 H ABG HCO3 ABG O2 Saturation 99.5 H ABG Base Excess ABG Hemoglobin 6.9 L Oxyhemoglobin Sodium Potassium 5.8 H Chloride Carbon Dioxide BUN Creatinine Glucose POC Glucose Magnesium Ferritin AST ALT Lactate Dehydrogenase Total Creatine Kinase C-Reactive Protein Total Protein Albumin TSH Free T4 Coronavirus (PCR) Crossmatch 05/03/21 05/03/21 05/03/21 04:52 10:10 10:23 WBC RBC Hgb Hct RDW Plt Count Lymph % (Auto) Lymph # (Auto) Seg Neutrophils % Seg Neuts % (Manual) Lymphocytes % (Manual) Lymphocytes # (Manual) PT APTT D-Dimer ABG pO2 177.2 H ABG HCO3 ABG O2 Saturation 99.1 H ABG Base Excess ABG Hemoglobin 7.1 L Oxyhemoglobin Sodium 129 L Potassium 6.2 H* Chloride 97.0 L Carbon Dioxide BUN 25 H Creatinine Glucose POC Glucose 106 H Magnesium Ferritin AST 152 H ALT 127 H Lactate Dehydrogenase Total Creatine Kinase C-Reactive Protein Total Protein 8.6 H Albumin 2.6 L TSH Free T4 Coronavirus (PCR) Crossmatch 05/03/21 05/03/21 05/03/21 13:11 14:13 16:49 WBC RBC Hgb Hct RDW Plt Count Lymph % (Auto) Lymph # (Auto) Seg Neutrophils % Seg Neuts % (Manual) Lymphocytes % (Manual) Lymphocytes # (Manual) PT APTT D-Dimer ABG pO2 ABG HCO3 ABG O2 Saturation ABG Base Excess ABG Hemoglobin Oxyhemoglobin Sodium Potassium Chloride Carbon Dioxide BUN Creatinine Glucose POC Glucose 116 H 58 L Magnesium Ferritin AST ALT Lactate Dehydrogenase Total Creatine Kinase C-Reactive Protein Total Protein Albumin TSH Free T4 Coronavirus (PCR) Crossmatch See Detail 05/03/21 05/03/21 05/03/21 17:34 19:58 20:07 WBC RBC Hgb Hct RDW Plt Count Lymph % (Auto) Lymph # (Auto) Seg Neutrophils % Seg Neuts % (Manual) Lymphocytes % (Manual) Lymphocytes # (Manual) PT APTT D-Dimer ABG pO2 ABG HCO3 ABG O2 Saturation ABG Base Excess ABG Hemoglobin Oxyhemoglobin Sodium 131 L Potassium 5.7 H Chloride 97.7 L Carbon Dioxide 21 L BUN 28 H Creatinine 1.4 H Glucose 130 H POC Glucose 123 H 122 H Magnesium Ferritin AST ALT Lactate Dehydrogenase Total Creatine Kinase C-Reactive Protein Total Protein Albumin TSH Free T4 Coronavirus (PCR) Crossmatch 05/03/21 05/03/21 05/04/21 Unknown 23:59 02:59 WBC RBC Hgb Hct RDW Plt Count Lymph % (Auto) Lymph # (Auto) Seg Neutrophils % Seg Neuts % (Manual) Lymphocytes % (Manual) Lymphocytes # (Manual) PT APTT D-Dimer ABG pO2 ABG HCO3 ABG O2 Saturation ABG Base Excess ABG Hemoglobin Oxyhemoglobin Sodium Potassium Chloride Carbon Dioxide BUN Creatinine Glucose POC Glucose 117 H 142 H Magnesium Ferritin AST ALT Lactate Dehydrogenase Total Creatine Kinase C-Reactive Protein Total Protein Albumin TSH Free T4 Coronavirus (PCR) Positive A Crossmatch 05/04/21 05/04/21 05/04/21 03:15 09:41 09:41 WBC RBC 2.28 L Hgb 7.1 L Hct 21.4 L RDW 18.5 H Plt Count 97 L Lymph % (Auto) 10.4 L Lymph # (Auto) 0.6 L Seg Neutrophils % 84.7 H Seg Neuts % (Manual) Lymphocytes % (Manual) Lymphocytes # (Manual) PT APTT D-Dimer ABG pO2 ABG HCO3 ABG O2 Saturation ABG Base Excess ABG Hemoglobin 6.9 L Oxyhemoglobin 94.9 L Sodium 132 L Potassium Chloride Carbon Dioxide 21 L BUN 33 H Creatinine 1.4 H Glucose 143 H POC Glucose Magnesium Ferritin AST ALT Lactate Dehydrogenase Total Creatine Kinase C-Reactive Protein Total Protein Albumin TSH Free T4 Coronavirus (PCR) Crossmatch 05/04/21 05/04/21 05/04/21 11:43 16:48 21:31 WBC RBC Hgb Hct RDW Plt Count Lymph % (Auto) Lymph # (Auto) Seg Neutrophils % Seg Neuts % (Manual) Lymphocytes % (Manual) Lymphocytes # (Manual) PT APTT D-Dimer ABG pO2 ABG HCO3 ABG O2 Saturation ABG Base Excess ABG Hemoglobin Oxyhemoglobin Sodium Potassium Chloride Carbon Dioxide BUN Creatinine Glucose POC Glucose 125 H 129 H 124 H Magnesium Ferritin AST ALT Lactate Dehydrogenase Total Creatine Kinase C-Reactive Protein Total Protein Albumin TSH Free T4 Coronavirus (PCR) Crossmatch 05/05/21 05/05/21 05/05/21 01:32 02:30 04:35 WBC RBC Hgb Hct RDW Plt Count Lymph % (Auto) Lymph # (Auto) Seg Neutrophils % Seg Neuts % (Manual) Lymphocytes % (Manual) Lymphocytes # (Manual) PT APTT D-Dimer ABG pO2 123.1 H ABG HCO3 ABG O2 Saturation ABG Base Excess ABG Hemoglobin 5.9 L Oxyhemoglobin Sodium Potassium Chloride Carbon Dioxide BUN Creatinine Glucose POC Glucose 128 H Magnesium Ferritin AST 54 H ALT 70 H Lactate Dehydrogenase Total Creatine Kinase C-Reactive Protein Total Protein 8.4 H Albumin 2.5 L TSH Free T4 Coronavirus (PCR) Crossmatch 05/05/21 05/05/21 05/05/21 04:35 04:35 06:11 WBC 4.4 L RBC 2.04 L Hgb 6.3 L Hct 19.1 L* RDW 18.3 H Plt Count 77 L Lymph % (Auto) Lymph # (Auto) Seg Neutrophils % Seg Neuts % (Manual) Lymphocytes % (Manual) Lymphocytes # (Manual) PT APTT D-Dimer ABG pO2 ABG HCO3 ABG O2 Saturation ABG Base Excess ABG Hemoglobin Oxyhemoglobin Sodium 131 L Potassium Chloride Carbon Dioxide 21 L BUN 31 H Creatinine Glucose 158 H POC Glucose 165 H Magnesium 2.40 H Ferritin AST ALT Lactate Dehydrogenase Total Creatine Kinase C-Reactive Protein Total Protein Albumin TSH Free T4 Coronavirus (PCR) Crossmatch 05/05/21 05/05/21 05/05/21 07:20 17:01 23:25 WBC RBC Hgb Hct RDW Plt Count Lymph % (Auto) Lymph # (Auto) Seg Neutrophils % Seg Neuts % (Manual) Lymphocytes % (Manual) Lymphocytes # (Manual) PT APTT D-Dimer ABG pO2 ABG HCO3 ABG O2 Saturation ABG Base Excess ABG Hemoglobin Oxyhemoglobin Sodium Potassium Chloride Carbon Dioxide BUN Creatinine Glucose POC Glucose 152 H 114 H 148 H Magnesium Ferritin AST ALT Lactate Dehydrogenase Total Creatine Kinase C-Reactive Protein Total Protein Albumin TSH Free T4 Coronavirus (PCR) Crossmatch 05/06/21 05/06/21 05/06/21 04:56 04:56 05:37 WBC RBC 2.54 L Hgb 7.7 L Hct 23.2 L RDW 18.1 H Plt Count 73 L Lymph % (Auto) Lymph # (Auto) Seg Neutrophils % Seg Neuts % (Manual) Lymphocytes % (Manual) Lymphocytes # (Manual) PT APTT D-Dimer ABG pO2 ABG HCO3 ABG O2 Saturation ABG Base Excess ABG Hemoglobin Oxyhemoglobin Sodium 134 L Potassium 5.1 H Chloride Carbon Dioxide BUN 30 H Creatinine Glucose 133 H POC Glucose 120 H Magnesium Ferritin AST ALT Lactate Dehydrogenase Total Creatine Kinase C-Reactive Protein Total Protein Albumin TSH Free T4 Coronavirus (PCR) Crossmatch 05/06/21 05/06/21 05/07/21 14:14 15:40 04:34 WBC RBC 2.69 L Hgb 8.2 L Hct 24.7 L RDW 18.3 H Plt Count 80 L Lymph % (Auto) Lymph # (Auto) Seg Neutrophils % Seg Neuts % (Manual) Lymphocytes % (Manual) Lymphocytes # (Manual) PT APTT D-Dimer ABG pO2 72.2 L ABG HCO3 28.0 H ABG O2 Saturation ABG Base Excess 3.6 H ABG Hemoglobin 5.6 L Oxyhemoglobin Sodium Potassium Chloride Carbon Dioxide BUN Creatinine Glucose POC Glucose Magnesium Ferritin AST ALT Lactate Dehydrogenase Total Creatine Kinase C-Reactive Protein 7.30 H Total Protein Albumin TSH Free T4 Coronavirus (PCR) Crossmatch 05/07/21 05/07/21 05/07/21 04:34 04:34 04:34 WBC RBC Hgb Hct RDW Plt Count Lymph % (Auto) Lymph # (Auto) Seg Neutrophils % Seg Neuts % (Manual) Lymphocytes % (Manual) Lymphocytes # (Manual) PT APTT D-Dimer 1661.00 H ABG pO2 ABG HCO3 ABG O2 Saturation ABG Base Excess ABG Hemoglobin Oxyhemoglobin Sodium Potassium Chloride Carbon Dioxide BUN 25 H Creatinine Glucose POC Glucose Magnesium Ferritin 410.1 H AST ALT Lactate Dehydrogenase 184 H Total Creatine Kinase C-Reactive Protein 10.70 H Total Protein Albumin TSH Free T4 Coronavirus (PCR) Crossmatch 05/07/21 05/07/21 05/07/21 04:34 04:34 06:14 WBC RBC Hgb Hct RDW Plt Count Lymph % (Auto) Lymph # (Auto) Seg Neutrophils % Seg Neuts % (Manual) Lymphocytes % (Manual) Lymphocytes # (Manual) PT APTT D-Dimer ABG pO2 ABG HCO3 ABG O2 Saturation ABG Base Excess ABG Hemoglobin Oxyhemoglobin Sodium Potassium Chloride Carbon Dioxide BUN Creatinine Glucose POC Glucose 134 H Magnesium Ferritin AST ALT Lactate Dehydrogenase Total Creatine Kinase C-Reactive Protein Total Protein Albumin TSH 9.910 H Free T4 0.61 L Coronavirus (PCR) Crossmatch 05/07/21 12:42 WBC RBC Hgb Hct RDW Plt Count Lymph % (Auto) Lymph # (Auto) Seg Neutrophils % Seg Neuts % (Manual) Lymphocytes % (Manual) Lymphocytes # (Manual) PT APTT D-Dimer ABG pO2 ABG HCO3 ABG O2 Saturation ABG Base Excess ABG Hemoglobin Oxyhemoglobin Sodium Potassium Chloride Carbon Dioxide BUN Creatinine Glucose POC Glucose 121 H Magnesium Ferritin AST ALT Lactate Dehydrogenase Total Creatine Kinase C-Reactive Protein Total Protein Albumin TSH Free T4 Coronavirus (PCR) Crossmatch Chest x-ray: pending Allied health notes reviewed: nursing
--- NOTE | 2021-05-07 13:30 | Progress Note ---
Assessment and Plan 89-year-old female with a past medical history of hyper tension presenting to our facility with altered mental status, decreased responsiveness, bradycardia brought to the ED who 1 and then went to PEA arrest. ACLS protocol initiated with ROSC achieved. Patient taken to [facility] for temporary PPM Acute Encephalopathy Acute Respiratory Failure COVID-19 Infection Symptomatic Bradycardia (TVP removed) S/p PEA Arrest S/p Cardiogenic Shock Moderate MR MICHEAL (resolved) Hyponatremia Hyperkalemia (resolved) Anemia Thrombocytopenia Elevated LFTs HTN Euthyroid Sick Syndrome Echo 05/02/2021-EF 65 to 70%. Severe concentric LVH. Mild diastolic dysfunction is present impaired relaxation pattern. Moderate mitral regurgitation. Right ventricle is dilated. Right ventricular systolic function is normal device lead is present in right ventricle. Right atrium is dilated. No pericardial effusion Plan: Patient heart rate trending sinus 70s and not needing to be paced Removed patient's temporary pacemaker Agree with hydralazine for hypertension Patient seen in conjunction with Dr. Dalton who agrees with this plan of care - Patient Problems (1) Symptomatic bradycardia Current Visit: Yes Status: Acute Subjective Date of service: 05/07/21 Principal diagnosis: Symptomatic bradycardia; AHRF; Cardiogenic shock; Thrombocytopenia; AMS Interval history: Patient remains intubated and sedated Patient was trending sinus 70s Objective Vital Signs Temp Pulse Pulse Resp BP Pulse Ox 05/07/21 13:15 69 150/65 93 05/07/21 13:00 71 157/71 95 05/07/21 12:50 69 163/79 96 05/07/21 12:45 69 170/71 95 05/07/21 12:31 67 167/58 98 05/07/21 12:15 69 173/99 97 05/07/21 12:00 78 173/99 97 05/07/21 11:45 82 156/70 98 05/07/21 11:30 69 156/70 98 05/07/21 11:15 70 164/59 98 05/07/21 11:01 70 164/59 98 05/07/21 10:45 71 167/72 97 05/07/21 10:31 81 167/72 95 05/07/21 10:15 69 180/66 97 05/07/21 10:00 69 164/66 98 05/07/21 09:45 66 163/79 97 05/07/21 09:31 87 163/79 96 05/07/21 09:15 69 163/79 95 05/07/21 09:01 85 207/100 94 05/07/21 08:50 69 163/79 96 05/07/21 08:45 76 167/81 95 05/07/21 08:30 78 156/80 93 05/07/21 08:15 78 158/73 95 05/07/21 08:01 75 158/73 95 05/07/21 08:00 97.3 F L 72 05/07/21 07:45 80 172/84 96 05/07/21 07:31 74 172/84 97 05/07/21 07:15 76 171/80 96 05/07/21 07:01 75 171/80 96 05/07/21 06:45 72 162/72 98 05/07/21 06:00 71 153/73 100 05/07/21 05:10 74 185/114 05/07/21 05:00 74 185/116 97 05/07/21 04:00 61 61 22 148/63 100 05/07/21 03:49 98.9 F 05/07/21 03:01 76 139/51 96 05/07/21 02:01 82 164/136 97 05/07/21 01:00 55 L 131/54 98 05/07/21 00:01 65 173/62 94 05/07/21 00:00 98.7 F 65 65 20 94 05/06/21 23:51 80 133/51 92 05/06/21 23:01 66 146/58 94 05/06/21 22:20 60 154/64 94 05/06/21 22:00 63 143/53 94 05/06/21 21:59 66 137/53 05/06/21 21:00 60 143/56 95 05/06/21 20:01 70 140/66 96 05/06/21 20:00 97.3 F L 70 70 22 96 05/06/21 19:42 75 168/61 97 05/06/21 19:01 74 145/62 95 05/06/21 18:00 64 147/51 97 05/06/21 17:01 65 135/51 100 05/06/21 16:00 63 160/59 96 05/06/21 15:46 85 14 98 05/06/21 15:01 72 161/67 96 05/06/21 14:01 79 173/152 94 - Physical Examination General: Other (intubated and sedated) HEENT: Positive: Mucus Membranes Moist Neck: Positive: neck supple, trachea midline Cardiac: Positive: Reg Rate and Rhythm Lungs: Positive: Ventilated Respirations Neuro: Positive: Other (Pt intubated not following commands) Abdomen: Positive: Soft, Distended Skin: Negative: Rash Extremities: Present: Cool. Absent: edema - Labs and Meds Cardiac Enzymes 05/07/21 Range/Units 04:34 Lactate Dehydrogenase 184 H (91-180) units/L Lipids 05/07/21 Range/Units 04:34 Triglycerides 62 (2-149) mg/dL CBC 05/07/21 Range/Units 04:34 WBC 8.4 (4.5-11.0) K/mm3 RBC 2.69 L (3.65-5.03) M/mm3 Hgb 8.2 L (10.1-14.3) gm/dl Hct 24.7 L (30.3-42.9) % Plt Count 80 L (140-440) K/mm3 Comprehensive Metabolic Panel 05/07/21 Range/Units 04:34 Sodium 138 (137-145) mmol/L Potassium 4.6 (3.6-5.0) mmol/L Chloride 100.0 (98-107) mmol/L Carbon Dioxide 25 (22-30) mmol/L BUN 25 H (7-17) mg/dL Creatinine 0.8 (0.6-1.2) mg/dL Glucose 93 (65-100) mg/dL Calcium 9.5 (8.4-10.2) mg/dL - Imaging and Cardiology EKG: report reviewed, image reviewed Echo: report reviewed - Telemetry EKG Rhythm: Sinus Rhythm - EKG Sinus rhythms and dysrhythmias: sinus rhythm AV and intraventricular conduction: 1 AV block Repolarization changes or abnormalities: nonspecific abnormality, ST segment, and/or T wave - Allied health notes Allied health notes reviewed: nursing
[2021-05-07 15:14] LABS: Alanine Aminotransferase 52 units/L (7-56)
[2021-05-07 15:17] LABS: Bilirubin,Direct < 0.2 mg/dL (0-0.2)
--- NOTE | 2021-05-07 16:19 | Progress Note ---
Assessment and Plan Cultures: Blood culture 05/02/2021 no growth Sputum culture 05/02/2021 no growth A/P: 89-year-old female past medical history hypertension now with: #Severe COVID-19 pneumonia: Patient presented with a week of symptoms, chest x- ray with diffuse bilateral infiltrates, admission O2 sats on room air. Inflammatory markers elevated #Acute hypoxemic respiratory failure: Likely secondary to COVID-19 infection. Currently on the vent #PEA arrest: ROSC achieved after 1 round of epi Recommendations: -Dexamethasone 6 mg IV/PO daily for 10 days -Obtain q48-72h inflammatory markers - ferritin, Ddimer, CRP, LDH -Complete 5 days cefepime -Anticoagulation per hospital protocol -Proning as able Thank you for the consult, we will continue to follow. Rhianna Gallagher MD [facility] O: [phone] F: [phone] Subjective Date of service: 05/07/21 Principal diagnosis: Symptomatic bradycardia; AHRF; Cardiogenic shock; Thrombocytopenia; AMS Interval history: Afebrile, normal white count. Objective - Exam Narrative Exam: Physical exam deferred to reduce risk of transmission of COVID-19. Please refer to primary team's note. - Constitutional Vitals: Vital Signs Temp Pulse Resp BP Pulse Ox 98.2 F 79 22 166/113 97 05/07/21 12:00 05/07/21 14:06 05/07/21 12:00 05/07/21 14:06 05/07/21 13:42 Temperature -Last 24 Hours Temperature 98.2 F Temperature 97.3 F Temperature 98.9 F Temperature 98.7 F Temperature 97.3 F - Labs CBC & Chem 7: 05/07/21 04:34 05/07/21 04:34 Labs: Abnormal lab results 05/07/21 05/07/21 05/07/21 Range/Units 04:34 04:34 04:34 RBC 2.69 L (3.65-5.03) M/mm3 Hgb 8.2 L (10.1-14.3) gm/dl Hct 24.7 L (30.3-42.9) % RDW 18.3 H (13.2-15.2) % Plt Count 80 L (140-440) K/mm3 D-Dimer 1661.00 H (0-234) ng/mlDDU BUN 25 H (7-17) mg/dL POC Glucose (70-105) mg/dL Ferritin (10.0-200.0) ng/mL Lactate Dehydrogenase 184 H (91-180) units/L C-Reactive Protein 10.70 H (0.00-1.30) mg/dL Total Protein (6.3-8.2) g/dL Albumin (3.9-5) g/dL TSH (0.270-4.200) mlU/mL Free T4 (0.76-1.46) ng/dL 05/07/21 05/07/21 05/07/21 Range/Units 04:34 04:34 04:34 RBC (3.65-5.03) M/mm3 Hgb (10.1-14.3) gm/dl Hct (30.3-42.9) % RDW (13.2-15.2) % Plt Count (140-440) K/mm3 D-Dimer (0-234) ng/mlDDU BUN (7-17) mg/dL POC Glucose (70-105) mg/dL Ferritin 410.1 H (10.0-200.0) ng/mL Lactate Dehydrogenase (91-180) units/L C-Reactive Protein (0.00-1.30) mg/dL Total Protein (6.3-8.2) g/dL Albumin (3.9-5) g/dL TSH 9.910 H (0.270-4.200) mlU/mL Free T4 0.61 L (0.76-1.46) ng/dL 05/07/21 05/07/21 05/07/21 Range/Units 06:14 12:42 14:29 RBC (3.65-5.03) M/mm3 Hgb (10.1-14.3) gm/dl Hct (30.3-42.9) % RDW (13.2-15.2) % Plt Count (140-440) K/mm3 D-Dimer (0-234) ng/mlDDU BUN (7-17) mg/dL POC Glucose 134 H 121 H (70-105) mg/dL Ferritin (10.0-200.0) ng/mL Lactate Dehydrogenase (91-180) units/L C-Reactive Protein (0.00-1.30) mg/dL Total Protein 8.6 H (6.3-8.2) g/dL Albumin 3.0 L (3.9-5) g/dL TSH (0.270-4.200) mlU/mL Free T4 (0.76-1.46) ng/dL
[2021-05-07 16:27] LABS: ABG HCO3 27.6 mmol/L (20.0-26.0); ABG Methemoglobin 0.4 % (0.0-1.5); ABG Oxygen Saturation 97.1 % (95.0-99.0); ABG PCO2 42.5 mm Hg; ABG PH 7.43 pH Units (7.350-7.450); ABG PO2 86.6 mm Hg (80.0-90.0)
--- NOTE | 2021-05-07 16:59 | Progress Note ---
Assessment and Plan Assessment and plan: Assessment and Plan This is a 89-year-old female HTN, legally blind, nicotine abuse, [place] [facility] and recent UTI initially admitted for bradycardia and AMS. Patient subsequently PEA arrested with ROSC in the ED was intubated and placed on ventilatory support. Then was taken to [facility] for emergent transvenous pacemaker placement by Cardio. Symptomatic bradycardia, s/p PEA arrest, cardiogenic shock, h/o hypertension -S/p transvenous pacemaker (05/02-05/07) -Cardiology consulted, appreciate recommendations -S/p atropine with transient response-> PEA arrest -S/p dopamine drip -05/02 echocardiogram shows EF of 65 to 70% -Started on p.o. hydralazine for hypertension -Blood pressure monitor per protocol Acute hypoxic respiratory failure -Intubated on 05/02 with 7.0 ETT at 22 at the [facility] consulted, appreciate recommendations -A.m. vent settings AC tidal volume 350, rate 20, PEEP 6, 30% FiO2 -placed on PSV this afternoon -See RT notes for titration -ABG and CXR per [facility] -VAP bundle -Continuous SPO2 monitoring Severe COVID-19 pneumonia -CXR showed diffuse bilateral infiltrates, hypoxia on admission -Infectious disease consulted, appreciate recommendations -Dexamethasone for 10 days -Complete cefepime for 5 days -Anticoagulation per protocol -Trend COVID-19 inflammatory markers -Droplet/isolation precautions Acute metabolic encephalopathy, h/o legally blind -Avoid delirium -Maintain sleep-wake cycle -Sedated with fentanyl -RASS goal 0 to -1 Severe constipation, transaminitis -24 hours +709 mL -No BM recorded since admit -ducolax suppository -05/03 KUB shows moderate to severe constipation -BR: Colace, Senokot -PPI -Trend LFT Thrombocytopenia, anemia, leukopenia -HIT panel pending -Platelets noted 73 K 05/06 -SCD to bilateral lower extremity while in bed -Trend CBC -Transfuse hemoglobin less than 7 -Hold chemical anticoagulation for now Hyperkalemia (resolved) -Kayexalate -Trend potassium Sick thyroid syndrome -Levothyroxine -TSH 10.35, free T4 0.61 -Repeat TSH 9.9/FT 4 0.61 The high probability of a clinically significant, sudden or life threatening deterioration of the [multi] system(s) required my full and direct attention, intervention and personal management. The aggregate critical care time was [60] minutes. This time is in addition to time spent performing reported procedures but includes the following: [x] Data Review and interpretation [x] Patient assessment and monitoring of vital signs [x] Documentation [x] Medication orders and management Disposition Plan: icu Total Time Spent with Patient (Minutes): 60 History Interval history: This is a 89-year-old female with hypertension, legally blind, recent UTI, nicotine abuse hard of hearing who presented to the emergency department on 05/02 with AMS, decreased p.o. of note, bradycardia via EMS. Per family patient has been exhibiting mumbling/hallucination/strange paranoid behavior approximately 2 weeks prior to presentation and was seen by her PCP who noticed that her blood pressure was extremely elevated in the office documented systolic of 240 and she was treated for high blood pressure and UTI at that time. She improved after this per family but subsequently worsened and request to same behavior exhibited 2 weeks ago and became unresponsive prior to arrival. Per EMS patient was noted to be bradycardic to 38 bpm and given atropine with improvement in heart rate to 65 however the patient shortly thereafter bradyed down to 45 bpm. In the emergency department patient was confused. The emergency department patient lost a pulse and went into PEA arrest and ACLS was initiated by ED staff and ROSC was achieved after 1 round of epinephrine. Patient was taken immediately to the [facility] by cardiology for transvenous pacemaker placement and was intubated. Patient was admitted to the hospitalist service with symptomatic bradycardia, s/p cardiac arrest, acute hypoxic respiratory failure, cardiogenic shock, electrode imbalances, hypothermia, acute metabolic encephalopathy, euthyroid sick syndrome, transaminitis with consults to cardiology, pulmonology and eventually infectious disease. Hospital Course to Date: 05/03: s/p cardiac arrest, remains unresponsive, not on any sedation. +gag/cough and corneal reflex, pending CT head/brain. Patient H&H also dropped this am, 1unit of PRBCs ordered. Hyperkalemia was treated per protoocl, repeat BMP at 1600. BR was initiated for severe constipation, TF was initiated. 05/04: Patient is awake this am, following simple commands. Off dopamine gtt and Transvenous pacer at a back rate of 60. COVID PCR +, patient is on IV Abx and IV steroids. Awaiting cardio recommendation, if no plan for PPM insertion, plan for PST for possible extubation. 05/05: On sedation this am due to increase agitation. Patient failed SAT this am. 1unit ordered for low H&H this am with worsening in thrombocytopenia, AC held and stool occult ordered. Transvenous pacer still present at a back up rate of 50, patient SR on the monitor this am, HR in the 60s. Plan for possible TVP removal tomorrow by Cardio. 05/06: Patient tried on PSV today, hydralazine p.o. for hypertension (initial DCCV but discontinued due to transvenous pacemaker in place), HIT panel ordered. 05/07: Transvenous catheter removed by cardiology, placed on SBT. Head still pending. Repeat thyroid studies show slight improvement. No acute events reported overnight. Home Norvasc changed to hydralazine today Hospitalist Physical - Constitutional Vitals: Temp Pulse Resp BP Pulse Ox 98.8 F 79 22 166/113 97 05/07/21 16:00 05/07/21 14:06 05/07/21 12:00 05/07/21 14:06 05/07/21 13:42 General appearance: Present: no acute distress, other (Intubated and sedated) - EENT Eyes: Present: PERRL, EOM intact - Neck Neck: Present: normal ROM - Respiratory Respiratory effort: normal Respiratory: bilateral: diminished - Cardiovascular Rhythm: regular Heart Sounds: Present: S1 & S2. Absent: systolic murmur, diastolic murmur - Extremities Extremities: no ischemia, pulses intact, pulses symmetrical, No edema, normal temperature, normal color Peripheral Pulses: within normal limits - Abdominal General gastrointestinal: soft, non-tender, non-distended, normal bowel sounds - Integumentary Integumentary: Present: warm, dry - Psychiatric Psychiatric: cooperative - Neurologic Neurologic: CNII-XII intact - Allied Health Allied health notes reviewed: nursing, RT, social work HEART Score - HEART Score Troponin: Troponin T < 0.010 ng/mL (0.00-0.029) 05/02/21 05:16 Results - Labs CBC & Chem 7: 05/07/21 04:34 05/07/21 04:34 Labs: Laboratory Last Values WBC 8.4 K/mm3 (4.5-11.0) 05/07/21 04:34 RBC 2.69 M/mm3 (3.65-5.03) L 05/07/21 04:34 Hgb 8.2 gm/dl (10.1-14.3) L 05/07/21 04:34 Hct 24.7 % (30.3-42.9) L 05/07/21 04:34 MCV 92 fl (79-97) 05/07/21 04:34 MCH 30 pg (28-32) 05/07/21 04:34 MCHC 33 % (30-34) 05/07/21 04:34 RDW 18.3 % (13.2-15.2) H 05/07/21 04:34 Plt Count 80 K/mm3 (140-440) L 05/07/21 04:34 Lymph % (Auto) 10.4 % (13.4-35.0) L 05/04/21 09:41 Clark % (Auto) 4.9 % (0.0-7.3) 05/04/21 09:41 Eos % (Auto) 0.0 % (0.0-4.3) 05/04/21 09:41 Baso % (Auto) 0.0 % (0.0-1.8) 05/04/21 09:41 Lymph # (Auto) 0.6 K/mm3 (1.2-5.4) L 05/04/21 09:41 Clark # (Auto) 0.3 K/mm3 (0.0-0.8) 05/04/21 09:41 Eos # (Auto) 0.0 K/mm3 (0.0-0.4) 05/04/21 09:41 Baso # (Auto) 0.0 K/mm3 (0.0-0.1) 05/04/21 09:41 Add Manual Diff Complete 05/03/21 04:52 Total Counted 100 05/03/21 04:52 Seg Neutrophils % 84.7 % (40.0-70.0) H 05/04/21 09:41 Seg Neuts % (Manual) 86.0 % (40.0-70.0) H 05/03/21 04:52 Band Neutrophils % 8.0 % 05/03/21 04:52 Lymphocytes % (Manual) 3.0 % (13.4-35.0) L 05/03/21 04:52 Reactive Lymphs % (Man) 0 % 05/03/21 04:52 Monocytes % (Manual) 2.0 % (0.0-7.3) 05/03/21 04:52 Eosinophils % (Manual) 1.0 % (0.0-4.3) 05/03/21 04:52 Basophils % (Manual) 0 % (0.0-1.8) 05/03/21 04:52 Metamyelocytes % 0 % 05/03/21 04:52 Myelocytes % 0 % 05/03/21 04:52 Promyelocytes % 0 % 05/03/21 04:52 Blast Cells % 0 % 05/03/21 04:52 Nucleated RBC % Not Reportable 05/03/21 04:52 Seg Neutrophils # 4.6 K/mm3 (1.8-7.7) 05/04/21 09:41 Seg Neutrophils # Man 3.9 K/mm3 (1.8-7.7) 05/03/21 04:52 Band Neutrophils # 0.4 K/mm3 05/03/21 04:52 Lymphocytes # (Manual) 0.1 K/mm3 (1.2-5.4) L 05/03/21 04:52 Abs React Lymphs (Man) 0.0 K/mm3 05/03/21 04:52 Monocytes # (Manual) 0.1 K/mm3 (0.0-0.8) 05/03/21 04:52 Eosinophils # (Manual) 0.0 K/mm3 (0.0-0.4) 05/03/21 04:52 Basophils # (Manual) 0.0 K/mm3 (0.0-0.1) 05/03/21 04:52 Metamyelocytes # 0.0 K/mm3 05/03/21 04:52 Myelocytes # 0.0 K/mm3 05/03/21 04:52 Promyelocytes # 0.0 K/mm3 05/03/21 04:52 Blast Cells # 0.0 K/mm3 05/03/21 04:52 WBC Morphology Not Reportable 05/03/21 04:52 Hypersegmented Neuts Not Reportable 05/03/21 04:52 Hyposegmented Neuts Not Reportable 05/03/21 04:52 Hypogranular Neuts Not Reportable 05/03/21 04:52 Smudge Cells Not Reportable 05/03/21 04:52 Toxic Granulation Not Reportable 05/03/21 04:52 Toxic Vacuolation Not Reportable 05/03/21 04:52 Dohle Bodies Not Reportable 05/03/21 04:52 Pelger-Huet Anomaly Not Reportable 05/03/21 04:52 Shanti Rods Not Reportable 05/03/21 04:52 Platelet Estimate Consistent w auto 05/03/21 04:52 Clumped Platelets Not Reportable 05/03/21 04:52 Plt Clumps, EDTA Not Reportable 05/03/21 04:52 Large Platelets Not Reportable 05/03/21 04:52 Giant Platelets Not Reportable 05/03/21 04:52 Platelet Satelliting Not Reportable 05/03/21 04:52 Plt Morphology Comment Not Reportable 05/03/21 04:52 RBC Morphology Not Reportable 05/03/21 04:52 Dimorphic RBCs Not Reportable 05/03/21 04:52 Polychromasia Not Reportable 05/03/21 04:52 Hypochromasia 2+ 05/03/21 04:52 Poikilocytosis Not Reportable 05/03/21 04:52 Anisocytosis 1+ 05/03/21 04:52 Microcytosis Not Reportable 05/03/21 04:52 Macrocytosis Few 05/03/21 04:52 Spherocytes Not Reportable 05/03/21 04:52 Pappenheimer Bodies Not Reportable 05/03/21 04:52 Sickle Cells Not Reportable 05/03/21 04:52 Target Cells Not Reportable 05/03/21 04:52 Tear Drop Cells Not Reportable 05/03/21 04:52 Ovalocytes Few 05/03/21 04:52 Helmet Cells Not Reportable 05/03/21 04:52 Marcelino[place] Bodies Not Reportable 05/03/21 04:52 [place] Rings Not Reportable 05/03/21 04:52 Jossue Cells Not Reportable 05/03/21 04:52 Bite Cells Not Reportable 05/03/21 04:52 Crenated Cell Not Reportable 05/03/21 04:52 Elliptocytes Not Reportable 05/03/21 04:52 Acanthocytes (Spur) Not Reportable 05/03/21 04:52 Rouleaux Not Reportable 05/03/21 04:52 Hemoglobin C Crystals Not Reportable 05/03/21 04:52 Schistocytes Not Reportable 05/03/21 04:52 Malaria parasites Not Reportable 05/03/21 04:52 Anatoly Bodies Not Reportable 05/03/21 04:52 Hem Pathologist Commnt No 05/03/21 04:52 PT 15.1 Sec. (12.2-14.9) H 05/02/21 05:16 INR 1.07 (0.87-1.13) 05/02/21 05:16 APTT 41.7 Sec. (24.2-36.6) H 05/02/21 05:16 D-Dimer 1661.00 ng/mlDDU (0-234) H 05/07/21 04:34 ABG pH 7.430 pH Units (7.350-7.450) 05/07/21 16:08 ABG pCO2 42.5 mm Hg 05/07/21 16:08 ABG pO2 86.6 mm Hg (80.0-90.0) 05/07/21 16:08 ABG HCO3 27.6 mmol/L (20.0-26.0) H 05/07/21 16:08 ABG O2 Saturation 97.1 % (95.0-99.0) 05/07/21 16:08 ABG O2 Content 11.9 (0.0-44) 05/07/21 16:08 ABG Base Excess 3.0 mmol/L (-2.0-3.0) 05/07/21 16:08 ABG Hemoglobin 8.8 gm/dl (12.0-16.0) L 05/07/21 16:08 ABG Carboxyhemoglobin 1.6 % (0.0-5.0) 05/07/21 16:08 ABG Methemoglobin 0.4 % (0.0-1.5) 05/07/21 16:08 Oxyhemoglobin 95.1 % (95.0-99.0) 05/07/21 16:08 FiO2 30 % 05/07/21 16:08 Sodium 138 mmol/L (137-145) 05/07/21 04:34 Potassium 4.6 mmol/L (3.6-5.0) 05/07/21 04:34 Chloride 100.0 mmol/L (98-107) 05/07/21 04:34 Carbon Dioxide 25 mmol/L (22-30) 05/07/21 04:34 Anion Gap 18 mmol/L 05/07/21 04:34 BUN 25 mg/dL (7-17) H 05/07/21 04:34 Creatinine 0.8 mg/dL (0.6-1.2) 05/07/21 04:34 Estimated GFR > 60 ml/min 05/07/21 04:34 BUN/Creatinine Ratio 31 % 05/07/21 04:34 Glucose 93 mg/dL (65-100) 05/07/21 04:34 POC Glucose 121 mg/dL (70-105) H 05/07/21 12:42 Lactic Acid 0.80 mmol/L (0.7-2.0) 05/02/21 05:53 Calcium 9.5 mg/dL (8.4-10.2) 05/07/21 04:34 Phosphorus 2.90 mg/dL (2.5-4.5) D 05/06/21 04:56 Magnesium 2.30 mg/dL (1.7-2.3) 05/06/21 04:56 Ferritin 410.1 ng/mL (10.0-200.0) H 05/07/21 04:34 Total Bilirubin 0.30 mg/dL (0.1-1.2) 05/07/21 14:29 Direct Bilirubin < 0.2 mg/dL (0-0.2) 05/07/21 14:29 Indirect Bilirubin 0.1 mg/dL 05/07/21 14:29 AST 32 units/L (5-40) 05/07/21 14:29 ALT 52 units/L (7-56) 05/07/21 14:29 Alkaline Phosphatase 98 units/L (35-129) 05/07/21 14:29 Lactate Dehydrogenase 184 units/L (91-180) H 05/07/21 04:34 Total Creatine Kinase 189 units/L (30-135) H 05/02/21 05:53 Troponin T < 0.010 ng/mL (0.00-0.029) 05/02/21 05:16 C-Reactive Protein 10.70 mg/dL (0.00-1.30) H 05/07/21 04:34 NT-Pro-B Natriuret Pep 341.7 pg/mL (0-900) 05/02/21 05:17 Total Protein 8.6 g/dL (6.3-8.2) H 05/07/21 14:29 Albumin 3.0 g/dL (3.9-5) L 05/07/21 14:29 Albumin/Globulin Ratio 0.5 % 05/07/21 14:29 Triglycerides 62 mg/dL (2-149) 05/07/21 04:34 Procalcitonin 0.74 ng/mL (<0.15) 05/03/21 04:52 TSH 9.910 mlU/mL (0.270-4.200) H 05/07/21 04:34 Free T4 0.61 ng/dL (0.76-1.46) L 05/07/21 04:34 Coronavirus (PCR) Positive (Negative) A 05/03/21 Unknown Blood Type O POSITIVE 05/03/21 14:13 Antibody Screen Negative 05/03/21 14:13 Crossmatch See Detail 05/03/21 14:13 Microbiology: Microbiology 05/02/21 16:04 Peripheral/Venous Blood Culture - Final NO GROWTH AFTER 5 DAYS 05/02/21 15:56 Peripheral/Venous Blood Culture - Final NO GROWTH AFTER 5 DAYS Peoples/IV: Voiding Method Indwelling Catheter Active Medications - Current Medications Current Medications: Generic Name Dose Route Start Last Admin Trade Name Freq PRN Reason Stop Dose Admin Acetaminophen 650 mg 05/02/21 08:59 Acetaminophen 325 Mg/10.15 Ml Oral Liqd Unit Dose FEEDTUBE Q6H PRN Pain MILD(1-3)/Fever >100.5/[place] Albuterol/Ipratropium 1 ampul 05/04/21 08:00 05/06/21 19:53 Ipratropium/Albuterol Sulfate 3 Ml Ampul.Neb IH Not Given TIDRT JHON Budesonide 0.5 mg 05/02/21 10:00 05/06/21 19:53 Budesonide 0.5 Mg/2 Ml Nebu IH Not Given Q12HRT JHON Dexamethasone 6 mg 05/07/21 10:00 05/07/21 10:36 Dexamethasone 4 Mg/Ml Vial IV 05/12/21 10:01 6 mg Q24HR JHON Administration Dextrose 0 ml 05/03/21 11:20 05/07/21 05:45 Dextrose 10% *Hypoglycemia IV 50 ml PRN PRN Administration Hypoglycemia Docusate Sodium 100 mg 05/03/21 12:00 05/07/21 10:35 Docusate Sodium 100 Mg/10 Ml Oral Liqd PO 100 mg BID JHON Administration Famotidine 10 mg 05/06/21 22:00 05/07/21 10:35 Famotidine 10 Mg Tab FEEDTUBE 10 mg BID JHON Administration Fentanyl 50 mcg 05/03/21 11:30 05/04/21 18:18 Fentanyl 100 Mcg/2 Ml Inj IV 50 mcg Q10MIN PRN Administration ANALGESIA Hydralazine HCl 25 mg 05/06/21 22:00 05/07/21 14:06 Hydralazine 25 Mg Tab PO 25 mg Q8HR JHON Administration NORepinephrine/NS 8 MG-250 ML 8 mg in 250 mls @ 3.75 mls/hr 05/02/21 10:00 Norepinephrine/Ns 8 Mg-250 Ml (Double Conc) IV TITRATE JHON Protocol 2 MCG/MIN Fentanyl Citrate 2,000 mcg in 100 mls @ 2.397 mls/hr 05/03/21 12:00 05/07/21 08:00 Fentanyl Drip Premix IV 3 mcg/kg/hr TITR JHON 7.191 mls/hr Titration Protocol 1 MCG/KG/HR Propofol 1,000 mg in 100 mls @ 1.438 mls/hr 05/04/21 22:00 05/06/21 13:05 Diprivan 10 Mg/Ml IV 0 mcg/kg/min TITR JHON 0 mls/hr Titration Protocol 5 MCG/KG/MIN Insulin Human Lispro 0 unit 05/03/21 22:00 05/07/21 14:07 Insulin Lispro 100 Unit/Ml SUB-Q Not Given Q4HR [facility] Protocol Levothyroxine Sodium 25 mcg 05/02/21 06:00 05/07/21 05:10 Levothyroxine 100 Mcg Inj IV 25 mcg DAILY@0600 JHON Administration Ondansetron HCl 4 mg 05/02/21 08:59 Ondansetron 4 Mg/2 Ml Inj IV Q8H PRN Nausea And Vomiting Polyethylene Glycol 17 gm 05/03/21 12:00 05/07/21 10:35 Polyethylene Glycol 3350 17 Gm Powder PO 17 gm QDAY JHON Administration Senna 17.6 mg 05/03/21 12:00 05/07/21 10:35 Sennosides Oral Liqd 8.8 Mg/5 Ml Oral Liqd PO 17.6 mg Q12HR JHON Administration Sodium Chloride 10 ml 05/02/21 10:00 05/06/21 22:00 Sodium Chloride 0.9% 10 Ml Flush Syringe IV 10 ml BID JHON Administration Sodium Chloride 10 ml 05/02/21 08:59 Sodium Chloride 0.9% 10 Ml Flush Syringe IV PRN PRN LINE FLUSH Sodium Chloride 10 ml 05/06/21 09:58 05/06/21 10:33 Sodium Chloride 0.9% 50 Ml Ivpb IV 10 ml PRN PRN Administration FLUSH Nutrition/Malnutrition Assess - Dietary Evaluation Nutrition/Malnutrition Findings: Nutrition Notes Start: 05/03/21 14:27 Freq: Status: Active Protocol: Document 05/06/21 14:58 NATHALIE (Rec: 05/06/21 15:25 NATHALIE [id number]) Nutrition Notes Initial or Follow up Brief Note Current Diagnosis Hypertension,Respiratory Failure Other Pertinent Diagnosis COVID-19, Bradycardia/PEA arrest/ROSC, Cardiogenic shock , Acute Metabolic E Current Diet TF-Osmolite 1.5 Nando @ 40 ml/hr (since D 05/03). Height 5 ft 6 in Weight 47.94 kg [place] Body Weight (kg) 59.09 BMI 17.0 Weight change and time frame NO body weight changed in 3 days reported. Weight Status Underweight Subjective/Other Information RD consult for routine F/U on TF tolerance and Low BMI assessment. Pt continues on mechanical ventilation, according to Physical Assessment History notes. Pt is tolerating TF, but very combative when weaned off propofol and attempts to pull the tube every time. Pt's Low BMI seems to correspond to a natural body composition, and not related to a sudden loss of body weight nor chronic malnutrition, since none were mentioned in the Physical Assessment History or the Progress notes. Percent of energy/protein needs met: Prescribed Osmolite 1.5 Nando @ 40 ml/hr provides for energy/ protein needs (1440 Kcal/60 g) during LOS, 100% Kcal; 100%AA . #1 Nutrition Diagnosis Inadequate oral intake Diagnosis Progress(for reassessment Continues documentation) Is patient on ventilator? Yes Is Patient Ambulatory and/or Out of Bed No REE-([facility]-confined to bed) 1119.252 Kcal/Kg value to use for calculation 30 Approximate Energy Requirements Using 1438 kcal/Kg Calculation Used for Recommendations 70-80% of EEN Additional Notes 15-20 Kcal/Kg ABW. Protein: 1.2-2 g/Kg; 58-96 g/ day. Fluids: 1 ml/Kcal, or as per MD. Nutrition Intervention Nutrition Support: Continue Osmolite 1.5 Nando @ 40 ml/hr. Flush: 120 ml water Q 4 hr, or as per MD. Kcal 1,440 Protein (gm) 60 Carbohydrates (gm) 195 Fat (gm) 47 Fluid (mL) 732 Fiber (gm) 0 % RDI: 100% Kcal; 100%AA. Goal #1 Provide at least 75% of energy /protein needs through Enteral Feeding during LOS. Goal #2 Maintain body weight within +/ -3% of admission body weight during LOS. Follow-Up By: 05/13/21 Additional Comments Continue monitoring TF tolerance and BM.
[2021-05-07] MEDS ORDERED: EPINEPHrine RACEMIC 2.25% 0.5ML NEBU IH ONE (18:35)
[2021-05-07] MEDS ORDERED: dexAMETHasone 4 MG/ML VIAL IV ONE (19:33)
[2021-05-07] MEDS: hydrALAZINE 20 MG/1 ML INJ IV PRN (19:45)
[2021-05-07] MEDS ORDERED: LIP THERAPY VASELINE TP PRN (20:35)
[2021-05-07] MEDS ORDERED: MINERAL OIL/PETROLATUM, WHITE OPHTH OINT 3.5 GM OU PRN (20:35)
[2021-05-07 21:35] LABS: ABG Base Excess 1.9 mmol/L (-2.0-3.0); ABG HCO3 28.6 mmol/L (20.0-26.0); ABG Methemoglobin 0.6 % (0.0-1.5); ABG Oxygen Saturation 97.1 % (95.0-99.0); ABG PH 7.311 pH Units (7.350-7.450); ABG PO2 95.5 mm Hg (80.0-90.0)
--- NOTE | 2021-05-07 21:35 | XRay Report ---
ABDOMEN 1 VIEW(S) 05/07/2021 8:25 PM INDICATION / CLINICAL INFORMATION: Gastric tube Placement. COMPARISON: 05/03/2021 FINDINGS: The tip of an esophagogastric tube projects over the body of the stomach in expected position. Signer Name: Herrera Evans MD Signed: 05/07/2021 9:31 PM Workstation Name: [id number]
--- NOTE | 2021-05-07 21:37 | XRay Report ---
CHEST 1 VIEW INDICATION / CLINICAL INFORMATION: ETT placement. COMPARISON: 05/06/2021 FINDINGS: SUPPORT DEVICES: Endotracheal tube noted with tip approximately 2.8 cm above the estela. Enteric tube noted with in the stomach. HEART / MEDIASTINUM: Stable. LUNGS / PLEURA: Interval worsening in bilateral perihilar airspace disease. No significant effusion. No pneumothorax. ADDITIONAL FINDINGS: No significant additional findings. IMPRESSION: 1. Endotracheal tube with tip approximately 2.8 cm above the estela. 2. Interval worsening of bilateral perihilar airspace disease. Signer Name: Hererra Evans MD Signed: 05/07/2021 9:32 PM Workstation Name: [id number]
[2021-05-07] MEDS: SENNOSIDES/DOCUSATE SODIUM 8.6/50 MG TAB FEEDTUBE SCH ×2 (21:49→22:34)
[2021-05-07] MEDS ORDERED: FAMOTIDINE 20 MG/2 ML INJ IV SCH (22:00)
[2021-05-07] MEDS ORDERED: propofoL 200 MG/20 ML VIAL IV ONE (23:30)
[2021-05-07] MEDS ORDERED: SUCCINYLCHOLINE CHLORIDE 200 MG/10 ML INJ MDV IV ONE (23:30)
[2021-05-08] MEDS: INSULIN LISPRO 100 UNIT/ML SUB-Q SCH ×6 (02:35→23:56)
[2021-05-08] MEDS: LEVOTHYROXINE 100 MCG INJ IV SCH (06:04)
[2021-05-08] MEDS: hydrALAZINE 25 MG TAB PO SCH ×3 (06:05→21:31)
--- NOTE | 2021-05-08 09:18 | XRay Report ---
CHEST 1 VIEW 05/08/2021 7:54 AM INDICATION / CLINICAL INFORMATION: follow up respiratory failure. COMPARISON: 05/07/2021 FINDINGS: SUPPORT DEVICES: Stable, satisfactory device positioning. HEART / MEDIASTINUM: Stable. LUNGS / PLEURA: Stable perihilar pulmonary opacities. No pneumothorax. ADDITIONAL FINDINGS: No significant additional findings. IMPRESSION: 1. No adverse change from the prior exam. Signer Name: Joaquin Quiros MD Signed: 05/08/2021 9:13 AM Workstation Name: [email or web address]
[2021-05-08] MEDS: dexAMETHasone 4 MG/ML VIAL IV SCH (09:32)
[2021-05-08 09:33] LABS: ABG Base Excess 5.5 mmol/L (-2.0-3.0); ABG HCO3 29.3 mmol/L (20.0-26.0); ABG Methemoglobin 0.4 % (0.0-1.5); ABG Oxygen Saturation 96.1 % (95.0-99.0); ABG PCO2 39.7 mm Hg; ABG PH 7.487 pH Units (7.350-7.450)
[2021-05-08] MEDS: POLYETHYLENE GLYCOL 3350 17 GM POWDER PO SCH (09:33)
[2021-05-08] MEDS: FAMOTIDINE 10 MG TAB FEEDTUBE SCH ×2 (09:33→21:30)
[2021-05-08] MEDS: DOCUSATE SODIUM 100 MG/10 ML ORAL LIQD PO SCH ×2 (09:33→21:30)
[2021-05-08] MEDS: SENNOSIDES/DOCUSATE SODIUM 8.6/50 MG TAB FEEDTUBE SCH ×2 (09:33→22:19)
--- NOTE | 2021-05-08 12:08 | Progress Note ---
Assessment and Plan Symptomatic bradycardia with subsequent PEA arrest status post ROSC Acute hypoxic respiratory failure Cardiogenic shock Hypothyroidism Thrombocytopenia Acute metabolic encephalopathy Leukopenia Anemia Transaminitis Hypothermia Hyperkalemia - add Seroquel re: agitated delirium - systemic steroids for laryngeal edema - keep set rate at 20/min for now - repeat ABG in am - Lasix 20 mg IV daily X 3 days - am labs ordered - continue care as below otherwise; - wean vasopressors for target MAP > 65 mmHg - continue Daily SAT and SBT assessment as tolerated - continue bronchodilators with pulmonary hygiene per RT - continue to wean supplemental oxygen for target O2 sat's > 90% acutely - VAP bundle addressed - continue lung protective strategies - continue bronchodilators with pulmonary hygiene per RT - wean per pulmonary driven protocols otherwise - sedation prn for target RASS 0 to -1 - AB's per ID recommendations - continue accuchecks with glycemic control per SSI (While critically ill target blood glucose of 140-180 mg/dL; avoid hypoglycemia) - avoid nephrotoxins, renally dose all medications - continue to avoid benzodiazepine's, reduce the possibility of delirium - prn analgesia per CPOT score - Maintenance of sleep-wake cycle, avoid delirium - continue enteral nutritional support at goal rate as tolerated - G.I. & VTE prophylaxis (VTE prophylaxis with SCDs; She has required supportive blood transfusions and has thrombocytopenia) - PT/OT/ROM exercises - mobility protocols for pressure ulcer prophylaxis - Monitor hemodynamics closely - continue other care per attending / other consultants - discharge planning ongoing concurrently COVID SPECIFIC INTERVENTIONS - Remdesivir as per ID/Pulmonary developed protocols - continue systemic steroids for severe COVID-19 infection empirically (Dexamethasone) - follow repeat COVID tests results - zinc and vitamin C supplementation - Monitor inflammatory markers per facility protocol - ferritin, Ddimer, CRP - therapeutic anticoagulation per system Protocol based on d-dimer and clinical considerations - Continue contact and airborne isolation .... Re-evaluate in am & prn CONDITION: CRITICAL PROGNOSIS: GUARDED CODE STATUS: FULL CODE The high probability of a clinically significant, sudden or life-threatening deterioration of the [respiratory, cardiovascular & neurologic] system(s) requir ed my full and direct attention, intervention and personal management. The aggregate critical care time was [34] minutes without overlap. Time includes spent on; [x] Data Review and interpretation [x] Patient assessment and monitoring of vital signs [x] Documentation [x] Medication orders and management Subjective Date of service: 05/08/21 Principal diagnosis: Symptomatic bradycardia; AHRF; Cardiogenic shock; Thrombocytopenia; AMS Interval history: Patient is seen today for: Symptomatic bradycardia; Acute hypoxic respiratory failure; Cardiogenic shock; Hypothyroidism; Thrombocytopenia; AMS; Hyperkalemia Seen and examined at bedside; 24hour events reviewed; nursing and respiratory care staff consulted; no adverse overnight events reported to me; resting in bed; extubated yesterday but developed stridor that failed to respond to racemic epinephrine and BIPAP therapy so re-intubated overnight; intermittently agitated most of this morning; no emesis or overt aspiration and no nichelle- arrhythmia's Objective Vital Signs - 12hr 05/08/21 05/08/21 05/08/21 00:15 00:30 00:45 Temperature Pulse Rate 68 67 65 Pulse Rate [ From Monitor] Respiratory Rate Blood Pressure 133/61 130/65 131/63 O2 Sat by Pulse 99 100 100 Oximetry 05/08/21 05/08/21 05/08/21 01:00 01:15 01:30 Temperature Pulse Rate 67 67 65 Pulse Rate [ From Monitor] Respiratory Rate Blood Pressure 138/62 140/62 145/62 O2 Sat by Pulse 100 100 100 Oximetry 05/08/21 05/08/21 05/08/21 01:45 02:00 02:15 Temperature Pulse Rate 70 67 69 Pulse Rate [ From Monitor] Respiratory Rate Blood Pressure 139/62 141/61 142/68 O2 Sat by Pulse 100 100 100 Oximetry 05/08/21 05/08/21 05/08/21 02:30 02:45 03:00 Temperature Pulse Rate 68 68 76 Pulse Rate [ From Monitor] Respiratory Rate Blood Pressure 146/63 161/65 161/65 O2 Sat by Pulse 100 100 100 Oximetry 05/08/21 05/08/21 05/08/21 03:15 03:30 03:46 Temperature Pulse Rate 79 82 78 Pulse Rate [ From Monitor] Respiratory Rate Blood Pressure 164/70 179/70 163/66 O2 Sat by Pulse 100 100 100 Oximetry 05/08/21 05/08/21 05/08/21 04:00 04:16 04:30 Temperature 98.4 F Pulse Rate 88 86 89 Pulse Rate [ 88 From Monitor] Respiratory 22 Rate Blood Pressure 163/66 174/66 167/76 O2 Sat by Pulse 100 100 100 Oximetry 05/08/21 05/08/21 05/08/21 04:45 05:00 05:15 Temperature Pulse Rate 88 87 79 Pulse Rate [ From Monitor] Respiratory Rate Blood Pressure 171/70 173/86 129/57 O2 Sat by Pulse 100 100 100 Oximetry 05/08/21 05/08/21 05/08/21 05:30 05:45 06:00 Temperature Pulse Rate 83 77 94 H Pulse Rate [ From Monitor] Respiratory Rate Blood Pressure 129/57 156/73 156/73 O2 Sat by Pulse 100 100 100 Oximetry 05/08/21 05/08/21 05/08/21 06:05 06:16 06:30 Temperature Pulse Rate 76 74 87 Pulse Rate [ From Monitor] Respiratory Rate Blood Pressure 171/79 151/69 151/69 O2 Sat by Pulse 100 100 Oximetry 05/08/21 08:20 Temperature Pulse Rate 87 Pulse Rate [ From Monitor] Respiratory Rate Blood Pressure 151/69 O2 Sat by Pulse 100 Oximetry Constitutional: appears uncomfortable, other (elderly female with mildly increased respiratory effort at rest on MVS) Eyes: non-icteric ENT: oropharynx moist, other (ETT 24 cm HIMANSHU) Neck: supple, no lymphadenopathy, no JVD Effort: mildly labored Ascultation: Bilateral: diminished breath sounds, rales (bilateral) Percussion: Bilateral: not dull Cardiovascular: regular rate and rhythm, other (S1,S2) Gastrointestinal: normoactive bowel sounds, soft, non-distended, other (distended suprapubic area- possibly bladder) Integumentary: normal Extremities: no cyanosis, no edema, pulses normal, no ischemia or petechiae Neurologic: non-focal exam (grossly), pupils equal and round, unable to assess, other (sedated) Psychiatric: other (delirious) CBC and BMP: 05/07/21 04:34 05/07/21 04:34 ABG, PT/INR, D-dimer: ABG ABG pH 7.487 pH Units (7.350-7.450) H 05/08/21 09:20 ABG pCO2 39.7 mm Hg 05/08/21 09:20 ABG pO2 70.0 mm Hg (80.0-90.0) L 05/08/21 09:20 ABG O2 Saturation 96.1 % (95.0-99.0) 05/08/21 09:20 PT/INR, D-dimer PT 15.1 Sec. (12.2-14.9) H 05/02/21 05:16 INR 1.07 (0.87-1.13) 05/02/21 05:16 D-Dimer 1661.00 ng/mlDDU (0-234) H 05/07/21 04:34 Abnormal lab findings: Abnormal Labs 05/02/21 05/02/21 05/02/21 05:16 05:16 05:16 WBC 2.9 L RBC 2.36 L Hgb 7.4 L Hct 22.2 L RDW 18.2 H Plt Count Lymph % (Auto) Lymph # (Auto) 0.5 L Seg Neutrophils % 76.5 H Seg Neuts % (Manual) Lymphocytes % (Manual) Lymphocytes # (Manual) PT 15.1 H APTT 41.7 H D-Dimer ABG pH ABG pO2 ABG HCO3 ABG O2 Saturation ABG Base Excess ABG Hemoglobin Oxyhemoglobin Sodium 129 L Potassium 6.2 H* Chloride 97.0 L Carbon Dioxide BUN Creatinine Glucose POC Glucose Magnesium Ferritin AST ALT Lactate Dehydrogenase Total Creatine Kinase C-Reactive Protein Total Protein Albumin TSH Free T4 Coronavirus (PCR) Crossmatch 05/02/21 05/02/21 05/02/21 05:17 05:53 06:41 WBC RBC Hgb Hct RDW Plt Count Lymph % (Auto) Lymph # (Auto) Seg Neutrophils % Seg Neuts % (Manual) Lymphocytes % (Manual) Lymphocytes # (Manual) PT APTT D-Dimer ABG pH ABG pO2 ABG HCO3 ABG O2 Saturation ABG Base Excess ABG Hemoglobin Oxyhemoglobin Sodium Potassium Chloride Carbon Dioxide BUN Creatinine Glucose POC Glucose Magnesium Ferritin AST 144 H ALT 115 H Lactate Dehydrogenase Total Creatine Kinase 189 H C-Reactive Protein Total Protein 9.6 H Albumin 2.9 L TSH 10.350 H Free T4 0.61 L Coronavirus (PCR) Crossmatch 05/02/21 05/02/21 05/03/21 11:50 15:56 04:52 WBC RBC 2.20 L Hgb 6.8 L Hct 20.6 L RDW 18.4 H Plt Count Lymph % (Auto) Lymph # (Auto) Seg Neutrophils % Seg Neuts % (Manual) 86.0 H Lymphocytes % (Manual) 3.0 L Lymphocytes # (Manual) 0.1 L PT APTT D-Dimer ABG pH ABG pO2 352.4 H ABG HCO3 ABG O2 Saturation 99.5 H ABG Base Excess ABG Hemoglobin 6.9 L Oxyhemoglobin Sodium Potassium 5.8 H Chloride Carbon Dioxide BUN Creatinine Glucose POC Glucose Magnesium Ferritin AST ALT Lactate Dehydrogenase Total Creatine Kinase C-Reactive Protein Total Protein Albumin TSH Free T4 Coronavirus (PCR) Crossmatch 05/03/21 05/03/21 05/03/21 04:52 10:10 10:23 WBC RBC Hgb Hct RDW Plt Count Lymph % (Auto) Lymph # (Auto) Seg Neutrophils % Seg Neuts % (Manual) Lymphocytes % (Manual) Lymphocytes # (Manual) PT APTT D-Dimer ABG pH ABG pO2 177.2 H ABG HCO3 ABG O2 Saturation 99.1 H ABG Base Excess ABG Hemoglobin 7.1 L Oxyhemoglobin Sodium 129 L Potassium 6.2 H* Chloride 97.0 L Carbon Dioxide BUN 25 H Creatinine Glucose POC Glucose 106 H Magnesium Ferritin AST 152 H ALT 127 H Lactate Dehydrogenase Total Creatine Kinase C-Reactive Protein Total Protein 8.6 H Albumin 2.6 L TSH Free T4 Coronavirus (PCR) Crossmatch 05/03/21 05/03/21 05/03/21 13:11 14:13 16:49 WBC RBC Hgb Hct RDW Plt Count Lymph % (Auto) Lymph # (Auto) Seg Neutrophils % Seg Neuts % (Manual) Lymphocytes % (Manual) Lymphocytes # (Manual) PT APTT D-Dimer ABG pH ABG pO2 ABG HCO3 ABG O2 Saturation ABG Base Excess ABG Hemoglobin Oxyhemoglobin Sodium Potassium Chloride Carbon Dioxide BUN Creatinine Glucose POC Glucose 116 H 58 L Magnesium Ferritin AST ALT Lactate Dehydrogenase Total Creatine Kinase C-Reactive Protein Total Protein Albumin TSH Free T4 Coronavirus (PCR) Crossmatch See Detail 05/03/21 05/03/21 05/03/21 17:34 19:58 20:07 WBC RBC Hgb Hct RDW Plt Count Lymph % (Auto) Lymph # (Auto) Seg Neutrophils % Seg Neuts % (Manual) Lymphocytes % (Manual) Lymphocytes # (Manual) PT APTT D-Dimer ABG pH ABG pO2 ABG HCO3 ABG O2 Saturation ABG Base Excess ABG Hemoglobin Oxyhemoglobin Sodium 131 L Potassium 5.7 H Chloride 97.7 L Carbon Dioxide 21 L BUN 28 H Creatinine 1.4 H Glucose 130 H POC Glucose 123 H 122 H Magnesium Ferritin AST ALT Lactate Dehydrogenase Total Creatine Kinase C-Reactive Protein Total Protein Albumin TSH Free T4 Coronavirus (PCR) Crossmatch 05/03/21 05/03/21 05/04/21 Unknown 23:59 02:59 WBC RBC Hgb Hct RDW Plt Count Lymph % (Auto) Lymph # (Auto) Seg Neutrophils % Seg Neuts % (Manual) Lymphocytes % (Manual) Lymphocytes # (Manual) PT APTT D-Dimer ABG pH ABG pO2 ABG HCO3 ABG O2 Saturation ABG Base Excess ABG Hemoglobin Oxyhemoglobin Sodium Potassium Chloride Carbon Dioxide BUN Creatinine Glucose POC Glucose 117 H 142 H Magnesium Ferritin AST ALT Lactate Dehydrogenase Total Creatine Kinase C-Reactive Protein Total Protein Albumin TSH Free T4 Coronavirus (PCR) Positive A Crossmatch 05/04/21 05/04/21 05/04/21 03:15 09:41 09:41 WBC RBC 2.28 L Hgb 7.1 L Hct 21.4 L RDW 18.5 H Plt Count 97 L Lymph % (Auto) 10.4 L Lymph # (Auto) 0.6 L Seg Neutrophils % 84.7 H Seg Neuts % (Manual) Lymphocytes % (Manual) Lymphocytes # (Manual) PT APTT D-Dimer ABG pH ABG pO2 ABG HCO3 ABG O2 Saturation ABG Base Excess ABG Hemoglobin 6.9 L Oxyhemoglobin 94.9 L Sodium 132 L Potassium Chloride Carbon Dioxide 21 L BUN 33 H Creatinine 1.4 H Glucose 143 H POC Glucose Magnesium Ferritin AST ALT Lactate Dehydrogenase Total Creatine Kinase C-Reactive Protein Total Protein Albumin TSH Free T4 Coronavirus (PCR) Crossmatch 05/04/21 05/04/21 05/04/21 11:43 16:48 21:31 WBC RBC Hgb Hct RDW Plt Count Lymph % (Auto) Lymph # (Auto) Seg Neutrophils % Seg Neuts % (Manual) Lymphocytes % (Manual) Lymphocytes # (Manual) PT APTT D-Dimer ABG pH ABG pO2 ABG HCO3 ABG O2 Saturation ABG Base Excess ABG Hemoglobin Oxyhemoglobin Sodium Potassium Chloride Carbon Dioxide BUN Creatinine Glucose POC Glucose 125 H 129 H 124 H Magnesium Ferritin AST ALT Lactate Dehydrogenase Total Creatine Kinase C-Reactive Protein Total Protein Albumin TSH Free T4 Coronavirus (PCR) Crossmatch 0105/05/21 05/05/21 01:32 02:30 04:35 WBC RBC Hgb Hct RDW Plt Count Lymph % (Auto) Lymph # (Auto) Seg Neutrophils % Seg Neuts % (Manual) Lymphocytes % (Manual) Lymphocytes # (Manual) PT APTT D-Dimer ABG pH ABG pO2 123.1 H ABG HCO3 ABG O2 Saturation ABG Base Excess ABG Hemoglobin 5.9 L Oxyhemoglobin Sodium Potassium Chloride Carbon Dioxide BUN Creatinine Glucose POC Glucose 128 H Magnesium Ferritin AST 54 H ALT 70 H Lactate Dehydrogenase Total Creatine Kinase C-Reactive Protein Total Protein 8.4 H Albumin 2.5 L TSH Free T4 Coronavirus (PCR) Crossmatch 05/05/21 05/05/21 05/05/21 04:35 04:35 06:11 WBC 4.4 L RBC 2.04 L Hgb 6.3 L Hct 19.1 L* RDW 18.3 H Plt Count 77 L Lymph % (Auto) Lymph # (Auto) Seg Neutrophils % Seg Neuts % (Manual) Lymphocytes % (Manual) Lymphocytes # (Manual) PT APTT D-Dimer ABG pH ABG pO2 ABG HCO3 ABG O2 Saturation ABG Base Excess ABG Hemoglobin Oxyhemoglobin Sodium 131 L Potassium Chloride Carbon Dioxide 21 L BUN 31 H Creatinine Glucose 158 H POC Glucose 165 H Magnesium 2.40 H Ferritin AST ALT Lactate Dehydrogenase Total Creatine Kinase C-Reactive Protein Total Protein Albumin TSH Free T4 Coronavirus (PCR) Crossmatch 05/05/21 05/05/21 05/05/21 07:20 17:01 23:25 WBC RBC Hgb Hct RDW Plt Count Lymph % (Auto) Lymph # (Auto) Seg Neutrophils % Seg Neuts % (Manual) Lymphocytes % (Manual) Lymphocytes # (Manual) PT APTT D-Dimer ABG pH ABG pO2 ABG HCO3 ABG O2 Saturation ABG Base Excess ABG Hemoglobin Oxyhemoglobin Sodium Potassium Chloride Carbon Dioxide BUN Creatinine Glucose POC Glucose 152 H 114 H 148 H Magnesium Ferritin AST ALT Lactate Dehydrogenase Total Creatine Kinase C-Reactive Protein Total Protein Albumin TSH Free T4 Coronavirus (PCR) Crossmatch 05/06/21 05/06/21 05/06/21 04:56 04:56 05:37 WBC RBC 2.54 L Hgb 7.7 L Hct 23.2 L RDW 18.1 H Plt Count 73 L Lymph % (Auto) Lymph # (Auto) Seg Neutrophils % Seg Neuts % (Manual) Lymphocytes % (Manual) Lymphocytes # (Manual) PT APTT D-Dimer ABG pH ABG pO2 ABG HCO3 ABG O2 Saturation ABG Base Excess ABG Hemoglobin Oxyhemoglobin Sodium 134 L Potassium 5.1 H Chloride Carbon Dioxide BUN 30 H Creatinine Glucose 133 H POC Glucose 120 H Magnesium Ferritin AST ALT Lactate Dehydrogenase Total Creatine Kinase C-Reactive Protein Total Protein Albumin TSH Free T4 Coronavirus (PCR) Crossmatch 05/06/21 05/06/21 05/07/21 14:14 15:40 04:34 WBC RBC 2.69 L Hgb 8.2 L Hct 24.7 L RDW 18.3 H Plt Count 80 L Lymph % (Auto) Lymph # (Auto) Seg Neutrophils % Seg Neuts % (Manual) Lymphocytes % (Manual) Lymphocytes # (Manual) PT APTT D-Dimer ABG pH ABG pO2 72.2 L ABG HCO3 28.0 H ABG O2 Saturation ABG Base Excess 3.6 H ABG Hemoglobin 5.6 L Oxyhemoglobin Sodium Potassium Chloride Carbon Dioxide BUN Creatinine Glucose POC Glucose Magnesium Ferritin AST ALT Lactate Dehydrogenase Total Creatine Kinase C-Reactive Protein 7.30 H Total Protein Albumin TSH Free T4 Coronavirus (PCR) Crossmatch 05/07/21 05/07/21 05/07/21 04:34 04:34 04:34 WBC RBC Hgb Hct RDW Plt Count Lymph % (Auto) Lymph # (Auto) Seg Neutrophils % Seg Neuts % (Manual) Lymphocytes % (Manual) Lymphocytes # (Manual) PT APTT D-Dimer 1661.00 H ABG pH ABG pO2 ABG HCO3 ABG O2 Saturation ABG Base Excess ABG Hemoglobin Oxyhemoglobin Sodium Potassium Chloride Carbon Dioxide BUN 25 H Creatinine Glucose POC Glucose Magnesium Ferritin 410.1 H AST ALT Lactate Dehydrogenase 184 H Total Creatine Kinase C-Reactive Protein 10.70 H Total Protein Albumin TSH Free T4 Coronavirus (PCR) Crossmatch 05/07/21 05/07/21 05/07/21 04:34 04:34 06:14 WBC RBC Hgb Hct RDW Plt Count Lymph % (Auto) Lymph # (Auto) Seg Neutrophils % Seg Neuts % (Manual) Lymphocytes % (Manual) Lymphocytes # (Manual) PT APTT D-Dimer ABG pH ABG pO2 ABG HCO3 ABG O2 Saturation ABG Base Excess ABG Hemoglobin Oxyhemoglobin Sodium Potassium Chloride Carbon Dioxide BUN Creatinine Glucose POC Glucose 134 H Magnesium Ferritin AST ALT Lactate Dehydrogenase Total Creatine Kinase C-Reactive Protein Total Protein Albumin TSH 9.910 H Free T4 0.61 L Coronavirus (PCR) Crossmatch 05/07/21 05/07/21 05/07/21 12:42 14:29 16:08 WBC RBC Hgb Hct RDW Plt Count Lymph % (Auto) Lymph # (Auto) Seg Neutrophils % Seg Neuts % (Manual) Lymphocytes % (Manual) Lymphocytes # (Manual) PT APTT D-Dimer ABG pH ABG pO2 ABG HCO3 27.6 H ABG O2 Saturation ABG Base Excess ABG Hemoglobin 8.8 L Oxyhemoglobin Sodium Potassium Chloride Carbon Dioxide BUN Creatinine Glucose POC Glucose 121 H Magnesium Ferritin AST ALT Lactate Dehydrogenase Total Creatine Kinase C-Reactive Protein Total Protein 8.6 H Albumin 3.0 L TSH Free T4 Coronavirus (PCR) Crossmatch 05/07/21 05/07/21 05/07/21 18:19 21:17 21:25 WBC RBC Hgb Hct RDW Plt Count Lymph % (Auto) Lymph # (Auto) Seg Neutrophils % Seg Neuts % (Manual) Lymphocytes % (Manual) Lymphocytes # (Manual) PT APTT D-Dimer ABG pH 7.311 L ABG pO2 95.5 H ABG HCO3 28.6 H ABG O2 Saturation ABG Base Excess ABG Hemoglobin 7.8 L Oxyhemoglobin Sodium Potassium Chloride Carbon Dioxide BUN Creatinine Glucose POC Glucose 149 H 143 H Magnesium Ferritin AST ALT Lactate Dehydrogenase Total Creatine Kinase C-Reactive Protein Total Protein Albumin TSH Free T4 Coronavirus (PCR) Crossmatch 05/08/21 05/08/21 05/08/21 06:33 07:29 09:20 WBC RBC Hgb Hct RDW Plt Count Lymph % (Auto) Lymph # (Auto) Seg Neutrophils % Seg Neuts % (Manual) Lymphocytes % (Manual) Lymphocytes # (Manual) PT APTT D-Dimer ABG pH 7.487 H ABG pO2 70.0 L ABG HCO3 29.3 H ABG O2 Saturation ABG Base Excess 5.5 H ABG Hemoglobin 7.6 L Oxyhemoglobin 94.3 L Sodium Potassium Chloride Carbon Dioxide BUN Creatinine Glucose POC Glucose 148 H 151 H Magnesium Ferritin AST ALT Lactate Dehydrogenase Total Creatine Kinase C-Reactive Protein Total Protein Albumin TSH Free T4 Coronavirus (PCR) Crossmatch 05/08/21 11:23 WBC RBC Hgb Hct RDW Plt Count Lymph % (Auto) Lymph # (Auto) Seg Neutrophils % Seg Neuts % (Manual) Lymphocytes % (Manual) Lymphocytes # (Manual) PT APTT D-Dimer ABG pH ABG pO2 ABG HCO3 ABG O2 Saturation ABG Base Excess ABG Hemoglobin Oxyhemoglobin Sodium Potassium Chloride Carbon Dioxide BUN Creatinine Glucose POC Glucose 124 H Magnesium Ferritin AST ALT Lactate Dehydrogenase Total Creatine Kinase C-Reactive Protein Total Protein Albumin TSH Free T4 Coronavirus (PCR) Crossmatch Chest x-ray: image reviewed (increased bilateral and amber-hilar infiltrates; suspect flash pulmonary edema) Allied health notes reviewed: nursing
[2021-05-08] MEDS ORDERED: methylPREDNISolone Sod Succinate 40 MG/1 ML INJ IV SCH (13:00)
--- NOTE | 2021-05-08 13:27 | Progress Note ---
Assessment and Plan 89-year-old female with a past medical history of hyper tension presenting to our facility with altered mental status, decreased responsiveness, bradycardia brought to the ED who 1 and then went to PEA arrest. ACLS protocol initiated with ROSC achieved. Patient taken to [facility] for temporary PPM Acute Encephalopathy Acute Respiratory Failure COVID-19 Infection Symptomatic Bradycardia (TVP removed) S/p PEA Arrest S/p Cardiogenic Shock Moderate MR MICHEAL (resolved) Hyponatremia Hyperkalemia (resolved) Anemia Thrombocytopenia Elevated LFTs HTN Euthyroid Sick Syndrome Echo 05/02/2021-EF 65 to 70%. Severe concentric LVH. Mild diastolic dysfunction is present impaired relaxation pattern. Moderate mitral regurgitation. Right ventricle is dilated. Right ventricular systolic function is normal device lead is present in right ventricle. Right atrium is dilated. No pericardial effusion Plan: Patient heart rate trending 70s to 80s Continue present management Agree with hydralazine for hypertension Patient seen in conjunction with Dr. Dalton who agrees with this plan of care - Patient Problems (1) Symptomatic bradycardia Current Visit: Yes Status: Acute Subjective Date of service: 05/08/21 Principal diagnosis: Symptomatic bradycardia; AHRF; Cardiogenic shock; Thrombocytopenia; AMS Interval history: Patient was previously extubated yes but then had to be reintubated. At time of exam patient remains intubated and sedated Patient was trending sinus 70s-80s Objective Vital Signs Temp Pulse Pulse Pulse Resp Resp BP 05/08/21 13:00 81 128/55 05/08/21 12:46 74 156/57 05/08/21 12:30 72 143/61 05/08/21 12:16 76 143/61 05/08/21 12:15 68 151/69 05/08/21 12:00 98.4 F 68 161/65 05/08/21 11:46 74 161/65 05/08/21 11:30 73 165/62 05/08/21 11:16 75 165/62 05/08/21 11:00 76 167/70 05/08/21 10:46 83 164/72 05/08/21 10:30 80 159/72 05/08/21 10:15 88 166/70 05/08/21 10:00 85 172/72 05/08/21 09:46 105 H 172/72 05/08/21 09:30 93 H 221/77 05/08/21 09:15 98 H 221/77 05/08/21 09:00 115 H 190/88 05/08/21 08:46 95 H 190/88 05/08/21 08:30 96 H 182/76 05/08/21 08:20 87 151/69 05/08/21 08:16 94 H 182/76 05/08/21 08:00 95 H 95 H 175/74 05/08/21 07:46 95 H 175/74 05/08/21 07:30 92 H 169/71 05/08/21 07:16 89 169/71 05/08/21 07:00 91 H 165/83 05/08/21 06:45 75 124/59 05/08/21 06:30 87 151/69 05/08/21 06:16 74 151/69 05/08/21 06:05 76 171/79 05/08/21 06:00 94 H 156/73 05/08/21 05:45 77 156/73 05/08/21 05:30 83 129/57 05/08/21 05:15 79 129/57 05/08/21 05:00 87 173/86 05/08/21 04:45 88 171/70 05/08/21 04:30 89 167/76 05/08/21 04:16 86 174/66 05/08/21 04:00 98.4 F 88 88 22 163/66 05/08/21 03:46 78 163/66 05/08/21 03:30 82 179/70 05/08/21 03:15 79 164/70 05/08/21 03:00 76 161/65 05/08/21 02:45 68 161/65 05/08/21 02:30 68 146/63 05/08/21 02:15 69 142/68 05/08/21 02:00 67 141/61 05/08/21 01:45 70 139/62 05/08/21 01:30 65 145/62 05/08/21 01:15 67 140/62 05/08/21 01:00 67 138/62 05/08/21 00:45 65 131/63 05/08/21 00:30 67 130/65 05/08/21 00:15 68 133/61 05/08/21 00:00 97.5 F L 67 67 22 135/58 05/07/21 23:45 67 127/63 05/07/21 23:30 71 143/67 05/07/21 23:15 76 05/07/21 23:07 74 143/67 05/07/21 23:00 70 143/67 05/07/21 22:45 77 163/73 05/07/21 22:30 76 163/73 05/07/21 22:24 75 150/72 05/07/21 22:15 79 150/72 05/07/21 22:00 77 141/61 05/07/21 21:46 82 171/66 05/07/21 21:45 80 171/66 05/07/21 21:31 91 H 123/67 05/07/21 21:30 90 123/67 05/07/21 21:15 85 123/67 05/07/21 21:00 88 109/50 05/07/21 20:45 87 109/50 05/07/21 20:31 103 H 157/80 05/07/21 20:30 110 H 153/63 05/07/21 20:16 101 H 163/71 05/07/21 20:15 106 H 163/71 05/07/21 20:00 97.0 F L 99 H 102 H 12 176/72 05/07/21 19:46 100 H 210/84 05/07/21 19:45 102 H 210/84 05/07/21 19:31 105 H 210/84 05/07/21 19:30 113 H 213/99 05/07/21 19:16 108 H 05/07/21 19:15 123 H 197/92 05/07/21 19:01 124 H 196/88 05/07/21 19:00 111 H 27 H 196/88 05/07/21 18:45 117 H 176/153 05/07/21 18:41 127 H 28 H 05/07/21 18:31 116 H 176/153 05/07/21 18:15 110 H 192/98 05/07/21 18:01 101 H 192/98 05/07/21 17:45 107 H 187/82 05/07/21 17:40 05/07/21 17:31 89 187/82 05/07/21 17:15 85 165/61 05/07/21 17:00 81 165/61 05/07/21 16:45 96 H 182/82 05/07/21 16:30 87 182/82 05/07/21 16:15 89 188/71 05/07/21 16:01 85 188/71 05/07/21 16:00 98.8 F 05/07/21 15:45 88 176/69 05/07/21 15:30 78 176/69 05/07/21 15:15 73 153/60 05/07/21 15:00 76 169/70 05/07/21 14:45 76 155/65 05/07/21 14:31 77 154/71 05/07/21 14:15 76 174/74 05/07/21 14:06 79 166/113 05/07/21 14:00 85 166/113 05/07/21 13:45 81 185/63 05/07/21 13:42 05/07/21 13:30 72 181/77 Pulse Ox 05/08/21 13:00 97 05/08/21 12:46 98 05/08/21 12:30 98 05/08/21 12:16 98 05/08/21 12:15 98 05/08/21 12:00 98 05/08/21 11:46 100 05/08/21 11:30 100 05/08/21 11:16 98 05/08/21 11:00 99 05/08/21 10:46 98 05/08/21 10:30 99 05/08/21 10:15 98 05/08/21 10:00 98 05/08/21 09:46 98 05/08/21 09:30 97 05/08/21 09:15 95 05/08/21 09:00 94 05/08/21 08:46 98 05/08/21 08:30 100 05/08/21 08:20 100 05/08/21 08:16 98 05/08/21 08:00 98 05/08/21 07:46 99 05/08/21 07:30 100 05/08/21 07:16 100 05/08/21 07:00 100 05/08/21 06:45 99 05/08/21 06:30 100 05/08/21 06:16 100 05/08/21 06:05 05/08/21 06:00 100 05/08/21 05:45 100 05/08/21 05:30 100 05/08/21 05:15 100 05/08/21 05:00 100 05/08/21 04:45 100 05/08/21 04:30 100 05/08/21 04:16 100 05/08/21 04:00 100 05/08/21 03:46 100 05/08/21 03:30 100 05/08/21 03:15 100 05/08/21 03:00 100 05/08/21 02:45 100 05/08/21 02:30 100 05/08/21 02:15 100 05/08/21 02:00 100 05/08/21 01:45 100 05/08/21 01:30 100 05/08/21 01:15 100 05/08/21 01:00 100 05/08/21 00:45 100 05/08/21 00:30 100 05/08/21 00:15 99 05/08/21 00:00 99 05/07/21 23:45 97 05/07/21 23:30 97 05/07/21 23:15 97 05/07/21 23:07 97 05/07/21 23:00 100 05/07/21 22:45 99 05/07/21 22:30 98 05/07/21 22:24 05/07/21 22:15 99 05/07/21 22:00 99 05/07/21 21:46 99 05/07/21 21:45 99 05/07/21 21:31 97 05/07/21 21:30 97 05/07/21 21:15 98 05/07/21 21:00 97 05/07/21 20:45 94 05/07/21 20:31 86 05/07/21 20:30 86 05/07/21 20:16 89 05/07/21 20:15 88 05/07/21 20:00 89 05/07/21 19:46 88 05/07/21 19:45 88 05/07/21 19:31 87 05/07/21 19:30 87 05/07/21 19:16 92 05/07/21 19:15 92 05/07/21 19:01 92 05/07/21 19:00 92 05/07/21 18:45 71 L 05/07/21 18:41 05/07/21 18:31 84 05/07/21 18:15 66 L 05/07/21 18:01 95 05/07/21 17:45 96 05/07/21 17:40 97 05/07/21 17:31 98 05/07/21 17:15 99 05/07/21 17:00 97 05/07/21 16:45 97 05/07/21 16:30 98 05/07/21 16:15 97 05/07/21 16:01 96 05/07/21 16:00 05/07/21 15:45 97 05/07/21 15:30 99 05/07/21 15:15 99 05/07/21 15:00 97 05/07/21 14:45 98 05/07/21 14:31 98 05/07/21 14:15 98 05/07/21 14:06 05/07/21 14:00 95 05/07/21 13:45 96 05/07/21 13:42 97 05/07/21 13:30 96 - Physical Examination General: Other (intubated and sedated) HEENT: Positive: Mucus Membranes Moist Neck: Positive: neck supple, trachea midline Cardiac: Positive: Reg Rate and Rhythm Lungs: Positive: Ventilated Respirations Neuro: Positive: Other (Pt intubated not following commands) Abdomen: Positive: Soft, Distended Skin: Negative: Rash Extremities: Present: Cool. Absent: edema - Labs and Meds Cardiac Enzymes 05/07/21 Range/Units 14:29 AST 32 (5-40) units/L Comprehensive Metabolic Panel 05/07/21 Range/Units 14:29 Direct Bilirubin < 0.2 (0-0.2) mg/dL Indirect Bilirubin 0.1 mg/dL AST 32 (5-40) units/L ALT 52 (7-56) units/L Alkaline Phosphatase 98 (35-129) units/L Total Protein 8.6 H (6.3-8.2) g/dL Albumin 3.0 L (3.9-5) g/dL - Imaging and Cardiology EKG: report reviewed, image reviewed Echo: report reviewed - EKG Sinus rhythms and dysrhythmias: sinus rhythm AV and intraventricular conduction: 1 AV block Repolarization changes or abnormalities: nonspecific abnormality, ST segment, and/or T wave - Allied health notes Allied health notes reviewed: nursing
--- NOTE | 2021-05-08 13:38 | Progress Note ---
Assessment and Plan Cultures: Blood culture 05/02/2021 no growth Sputum culture 05/02/2021 no growth A/P: 89-year-old female past medical history hypertension now with: #Severe COVID-19 pneumonia: Patient presented with a week of symptoms, chest x- ray with diffuse bilateral infiltrates, admission O2 sats on room air. Inflammatory markers elevated #Acute hypoxemic respiratory failure: Likely secondary to COVID-19 infection. Currently on the vent #PEA arrest: ROSC achieved after 1 round of epi Recommendations: -Dexamethasone 6 mg IV/PO daily for 10 days -Obtain q48-72h inflammatory markers - ferritin, Ddimer, CRP, LDH -Complete 5 days cefepime -Anticoagulation per hospital protocol -Proning as able Thank you for the consult, we will continue to follow. Rhianna Gallagher MD [facility] ([facility] O: [phone] F: [phone] Subjective Date of service: 05/08/21 Principal diagnosis: Symptomatic bradycardia; AHRF; Cardiogenic shock; Thrombocytopenia; AMS Interval history: Afebrile, no acute change. Imaging personally reviewed: Chest x-ray: No change. Objective - Exam Narrative Exam: Physical exam deferred to reduce risk of transmission of COVID-19. Please refer to primary team's note. - Constitutional Vitals: Vital Signs Temp Pulse Resp BP Pulse Ox 98.4 F 81 22 128/55 97 05/08/21 12:00 05/08/21 13:00 05/08/21 04:00 05/08/21 13:00 05/08/21 13:00 Temperature -Last 24 Hours Temperature 98.4 F Temperature 98.4 F Temperature 97.5 F Temperature 97.0 F Temperature 98.8 F - Labs CBC & Chem 7: 05/07/21 04:34 05/07/21 04:34 Labs: Abnormal lab results 05/07/21 05/07/21 05/07/21 Range/Units 14:29 16:08 18:19 ABG pH (7.350-7.450) pH Units ABG pO2 (80.0-90.0) mm Hg ABG HCO3 27.6 H (20.0-26.0) mmol/L ABG Base Excess (-2.0-3.0) mmol/L ABG Hemoglobin 8.8 L (12.0-16.0) gm/dl Oxyhemoglobin (95.0-99.0) % POC Glucose 149 H (70-105) mg/dL Total Protein 8.6 H (6.3-8.2) g/dL Albumin 3.0 L (3.9-5) g/dL 05/07/21 05/07/21 05/08/21 Range/Units 21:17 21:25 06:33 ABG pH 7.311 L (7.350-7.450) pH Units ABG pO2 95.5 H (80.0-90.0) mm Hg ABG HCO3 28.6 H (20.0-26.0) mmol/L ABG Base Excess (-2.0-3.0) mmol/L ABG Hemoglobin 7.8 L (12.0-16.0) gm/dl Oxyhemoglobin (95.0-99.0) % POC Glucose 143 H 148 H (70-105) mg/dL Total Protein (6.3-8.2) g/dL Albumin (3.9-5) g/dL 05/08/21 05/08/21 05/08/21 Range/Units 07:29 09:20 11:23 ABG pH 7.487 H (7.350-7.450) pH Units ABG pO2 70.0 L (80.0-90.0) mm Hg ABG HCO3 29.3 H (20.0-26.0) mmol/L ABG Base Excess 5.5 H (-2.0-3.0) mmol/L ABG Hemoglobin 7.6 L (12.0-16.0) gm/dl Oxyhemoglobin 94.3 L (95.0-99.0) % POC Glucose 151 H 124 H (70-105) mg/dL Total Protein (6.3-8.2) g/dL Albumin (3.9-5) g/dL
[2021-05-08] MEDS: FUROSEMIDE 20 MG/2 ML INJ IV SCH (14:54)
[2021-05-08] MEDS: QUEtiapine 100 MG TAB PO SCH ×2 (14:54→21:30)
[2021-05-08] MEDS: fentaNYL DRIP Premix 2,000 MCG/100 ML BAG IV SCH (15:12)
[2021-05-08 15:22] LABS: Hemoglobin 7.7 gm/dl (10.1-14.3); Mean Corpuscular HGB Conc 32 % (30-34); Mean Corpuscular Volume 93 fl (79-97); Platelet Count 113 K/mm3 (140-440); Red Blood Count 2.57 M/mm3 (3.65-5.03); Red Cell Distribution Width 17.9 % (13.2-15.2)
[2021-05-08 15:33] LABS: Calcium 9.3 mg/dL (8.4-10.2)
--- NOTE | 2021-05-08 18:44 | Progress Note ---
Assessment and Plan Assessment and plan: Assessment and Plan This is a 89-year-old female HTN, legally blind, nicotine abuse, EKWOK and recent UTI initially admitted for bradycardia and AMS. Patient subsequently PEA arrested with ROSC in the ED was intubated and placed on ventilatory support. Then was taken to [facility] for emergent transvenous pacemaker placement by Cardio. Symptomatic bradycardia, s/p PEA arrest, cardiogenic shock, h/o hypertension -S/p transvenous pacemaker (05/02-05/07) -Cardiology consulted, appreciate recommendations -S/p atropine with transient response-> PEA arrest -S/p dopamine drip -05/02 echocardiogram shows EF of 65 to 70% -Started on p.o. hydralazine for hypertension -Blood pressure monitor per protocol Acute hypoxic respiratory failure -Intubated on 05/02 and extubated 05/08 with a 7.00 ETT at 22 at the lips -Noted to have increased work of breathing and reintubated on 05/08 with 7.50 ETT at -CCM consulted, appreciate recommendations -A.m. vent settings AC rate 20, tidal volume 400, PEEP 8, FiO2 50% -See RT notes for titration -Decrease in respiratory rate -ABG and CXR per [facility] -VAP bundle -Continuous SPO2 monitoring -Started on steroids due to low angioedema Severe COVID-19 pneumonia -CXR showed diffuse bilateral infiltrates, hypoxia on admission -Infectious disease consulted, appreciate recommendations -s/p Dexamethasone for 10 days -s/p cefepime for 5 days -Anticoagulation per protocol -Trend COVID-19 inflammatory markers -Droplet/isolation precautions Acute metabolic encephalopathy, h/o legally blind -Avoid delirium -Maintain sleep-wake cycle -Sedated with fentanyl -RASS goal 0 to -1 -Started on Seroquel Severe constipation, transaminitis -24 hours -51 mL -No BM recorded since admit -ducolax suppository given this morning -04/14 25 KUB shows constipation -BR: Colace, Senokot -PPI -Trend LFT Thrombocytopenia, anemia, leukopenia -HIT panel pending -Platelets noted 73 K 05/06 Now slowly improving -SCD to bilateral lower extremity while in bed -Trend CBC -Transfuse hemoglobin less than 7 -Hold chemical anticoagulation for now Sick thyroid syndrome -Levothyroxine -TSH 10.35, free T4 0.61 -Repeat TSH 9.9/FT 4 0.61 The high probability of a clinically significant, sudden or life threatening deterioration of the [multi] system(s) required my full and direct attention, intervention and personal management. The aggregate critical care time was [60] minutes. This time is in addition to time spent performing reported procedures but includes the following: [x] Data Review and interpretation [x] Patient assessment and monitoring of vital signs [x] Documentation [x] Medication orders and management Disposition Plan: icu Total Time Spent with Patient (Minutes): 60 History Interval history: This is a 89-year-old female with hypertension, legally blind, recent UTI, nicotine abuse hard of hearing who presented to the emergency department on 05/02 with AMS, decreased p.o. of note, bradycardia via EMS. Per family patient has been exhibiting mumbling/hallucination/strange paranoid behavior approximately 2 weeks prior to presentation and was seen by her PCP who noticed that her blood pressure was extremely elevated in the office documented systolic of 240 and she was treated for high blood pressure and UTI at that time. She improved after this per family but subsequently worsened and request to same behavior exhibited 2 weeks ago and became unresponsive prior to arrival. Per EMS patient was noted to be bradycardic to 38 bpm and given atropine with improvement in heart rate to 65 however the patient shortly thereafter bradyed down to 45 bpm. In the emergency department patient was confused. The emergency department patient lost a pulse and went into PEA arrest and ACLS was initiated by ED staff and ROSC was achieved after 1 round of epinephrine. Patient was taken immediately to the [facility] by cardiology for transvenous pacemaker placement and was intubated. Patient was admitted to the hospitalist service with symptomatic bradycardia, s/p cardiac arrest, acute hypoxic respiratory failure, cardiogenic shock, electrode imbalances, hypothermia, acute metabolic encephalopathy, e uthyroid sick syndrome, transaminitis with consults to cardiology, pulmonology and eventually infectious disease. Hospital Course to Date: 05/03: s/p cardiac arrest, remains unresponsive, not on any sedation. +gag/cough and corneal reflex, pending CT head/brain. Patient H&H also dropped this am, 1un it of PRBCs ordered. Hyperkalemia was treated per protoocl, repeat BMP at 1600. BR was initiated for severe constipation, TF was initiated. 05/04: Patient is awake this am, following simple commands. Off dopamine gtt and Transvenous pacer at a back rate of 60. COVID PCR +, patient is on IV Abx and IV steroids. Awaiting cardio recommendation, if no plan for PPM insertion, plan for PST for possible extubation. 05/05: On sedation this am due to increase agitation. Patient failed SAT this am. 1unit ordered for low H&H this am with worsening in thrombocytopenia, AC held and stool occult ordered. Transvenous pacer still present at a back up rate of 50, patient SR on the monitor this am, HR in the 60s. Plan for possible TVP removal tomorrow by Cardio. 05/06: Patient tried on PSV today, hydralazine p.o. for hypertension (initial DCCV but discontinued due to transvenous pacemaker in place), HIT panel ordered. 05/07: Transvenous catheter removed by cardiology, placed on SBT. Head still pending. Repeat thyroid studies show slight improvement. No acute events reported overnight. Home Norvasc changed to hydralazine today 05/08: Added Seroquel per [facility], systemic steroids started for laryngeal edema and patient started on IV Lasix for 3 days. Drop in H/H from 8.2/24.7-7.7/24 noted, will repeat CBC in the a.m. Thrombocytopenia has improved. Patient was extubated yesterday afternoon however she had to be reintubated late evening due to increased work of breathing. Given Dulcolax suppository today Hospitalist Physical - Physical exam Narrative exam: General appearance: Present: no acute distress, other (Intubated and sedated) - EENT Eyes: Present: PERRL, EOM intact - Neck Neck: Present: normal ROM - Respiratory Respiratory effort: normal Respiratory: bilateral: diminished - Cardiovascular Rhythm: regular Heart Sounds: Present: S1 & S2. Absent: systolic murmur, diastolic murmur - Extremities Extremities: no ischemia, pulses intact, pulses symmetrical, No edema, normal temperature, normal color Peripheral Pulses: within normal limits - Abdominal General gastrointestinal: soft, non-tender, non-distended, normal bowel sounds - Integumentary Integumentary: Present: warm, dry - Psychiatric Psychiatric: cooperative - Neurologic Neurologic: CNII-XII intact - Allied Health Allied health notes reviewed: nursing, RT, social work - Constitutional Vitals: Temp Pulse Resp BP Pulse Ox 98.4 F 63 22 111/44 99 05/08/21 12:00 05/08/21 16:40 05/08/21 04:00 05/08/21 16:40 05/08/21 16:40 General appearance: Present: no acute distress, other (Intubated and sedated) HEART Score - HEART Score Troponin: Troponin T < 0.010 ng/mL (0.00-0.029) 05/02/21 05:16 Results - Labs CBC & Chem 7: 05/08/21 14:47 05/08/21 14:47 Labs: Laboratory Last Values WBC 7.5 K/mm3 (4.5-11.0) 05/08/21 14:47 RBC 2.57 M/mm3 (3.65-5.03) L 05/08/21 14:47 Hgb 7.7 gm/dl (10.1-14.3) L 05/08/21 14:47 Hct 24.0 % (30.3-42.9) L 05/08/21 14:47 MCV 93 fl (79-97) 05/08/21 14:47 MCH 30 pg (28-32) 05/08/21 14:47 MCHC 32 % (30-34) 05/08/21 14:47 RDW 17.9 % (13.2-15.2) H 05/08/21 14:47 Plt Count 113 K/mm3 (140-440) L 05/08/21 14:47 Lymph % (Auto) 10.4 % (13.4-35.0) L 05/04/21 09:41 [place] % (Auto) 4.9 % (0.0-7.3) 05/04/21 09:41 Eos % (Auto) 0.0 % (0.0-4.3) 05/04/21 09:41 Baso % (Auto) 0.0 % (0.0-1.8) 05/04/21 09:41 Lymph # (Auto) 0.6 K/mm3 (1.2-5.4) L 05/04/21 09:41 [place] # (Auto) 0.3 K/mm3 (0.0-0.8) 05/04/21 09:41 Eos # (Auto) 0.0 K/mm3 (0.0-0.4) 05/04/21 09:41 Baso # (Auto) 0.0 K/mm3 (0.0-0.1) 05/04/21 09:41 Add Manual Diff Complete 05/03/21 04:52 Total Counted 100 05/03/21 04:52 Seg Neutrophils % 84.7 % (40.0-70.0) H 05/04/21 09:41 Seg Neuts % (Manual) 86.0 % (40.0-70.0) H 05/03/21 04:52 Band Neutrophils % 8.0 % 05/03/21 04:52 Lymphocytes % (Manual) 3.0 % (13.4-35.0) L 05/03/21 04:52 Reactive Lymphs % (Man) 0 % 05/03/21 04:52 Monocytes % (Manual) 2.0 % (0.0-7.3) 05/03/21 04:52 Eosinophils % (Manual) 1.0 % (0.0-4.3) 05/03/21 04:52 Basophils % (Manual) 0 % (0.0-1.8) 05/03/21 04:52 Metamyelocytes % 0 % 05/03/21 04:52 Myelocytes % 0 % 05/03/21 04:52 Promyelocytes % 0 % 05/03/21 04:52 Blast Cells % 0 % 05/03/21 04:52 Nucleated RBC % Not Reportable 05/03/21 04:52 Seg Neutrophils # 4.6 K/mm3 (1.8-7.7) 05/04/21 09:41 Seg Neutrophils # Man 3.9 K/mm3 (1.8-7.7) 05/03/21 04:52 Band Neutrophils # 0.4 K/mm3 05/03/21 04:52 Lymphocytes # (Manual) 0.1 K/mm3 (1.2-5.4) L 05/03/21 04:52 Abs React Lymphs (Man) 0.0 K/mm3 05/03/21 04:52 Monocytes # (Manual) 0.1 K/mm3 (0.0-0.8) 05/03/21 04:52 Eosinophils # (Manual) 0.0 K/mm3 (0.0-0.4) 05/03/21 04:52 Basophils # (Manual) 0.0 K/mm3 (0.0-0.1) 05/03/21 04:52 Metamyelocytes # 0.0 K/mm3 05/03/21 04:52 Myelocytes # 0.0 K/mm3 05/03/21 04:52 Promyelocytes # 0.0 K/mm3 05/03/21 04:52 Blast Cells # 0.0 K/mm3 05/03/21 04:52 WBC Morphology Not Reportable 05/03/21 04:52 Hypersegmented Neuts Not Reportable 05/03/21 04:52 Hyposegmented Neuts Not Reportable 05/03/21 04:52 Hypogranular Neuts Not Reportable 05/03/21 04:52 Smudge Cells Not Reportable 05/03/21 04:52 Toxic Granulation Not Reportable 05/03/21 04:52 Toxic Vacuolation Not Reportable 05/03/21 04:52 Dohle Bodies Not Reportable 05/03/21 04:52 Pelger-Huet Anomaly Not Reportable 05/03/21 04:52 Shanti Rods Not Reportable 05/03/21 04:52 Platelet Estimate Consistent w auto 05/03/21 04:52 Clumped Platelets Not Reportable 05/03/21 04:52 Plt Clumps, EDTA Not Reportable 05/03/21 04:52 Large Platelets Not Reportable 05/03/21 04:52 Giant Platelets Not Reportable 05/03/21 04:52 Platelet Satelliting Not Reportable 05/03/21 04:52 Plt Morphology Comment Not Reportable 05/03/21 04:52 RBC Morphology Not Reportable 05/03/21 04:52 Dimorphic RBCs Not Reportable 05/03/21 04:52 Polychromasia Not Reportable 05/03/21 04:52 Hypochromasia 2+ 05/03/21 04:52 Poikilocytosis Not Reportable 05/03/21 04:52 Anisocytosis 1+ 05/03/21 04:52 Microcytosis Not Reportable 05/03/21 04:52 Macrocytosis Few 05/03/21 04:52 Spherocytes Not Reportable 05/03/21 04:52 Pappenheimer Bodies Not Reportable 05/03/21 04:52 Sickle Cells Not Reportable 05/03/21 04:52 Target Cells Not Reportable 05/03/21 04:52 Tear Drop Cells Not Reportable 05/03/21 04:52 Ovalocytes Few 05/03/21 04:52 Helmet Cells Not Reportable 05/03/21 04:52 Marcelino-Chamberlain Bodies Not Reportable 05/03/21 04:52 [place] Rings Not Reportable 05/03/21 04:52 Diller Cells Not Reportable 05/03/21 04:52 Bite Cells Not Reportable 05/03/21 04:52 Crenated Cell Not Reportable 05/03/21 04:52 Elliptocytes Not Reportable 05/03/21 04:52 Acanthocytes (Spur) Not Reportable 05/03/21 04:52 Rouleaux Not Reportable 05/03/21 04:52 Hemoglobin C Crystals Not Reportable 05/03/21 04:52 Schistocytes Not Reportable 05/03/21 04:52 Malaria parasites Not Reportable 05/03/21 04:52 Anatoly Bodies Not Reportable 05/03/21 04:52 Hem Pathologist Commnt No 05/03/21 04:52 PT 15.1 Sec. (12.2-14.9) H 05/02/21 05:16 INR 1.07 (0.87-1.13) 05/02/21 05:16 APTT 41.7 Sec. (24.2-36.6) H 05/02/21 05:16 D-Dimer 1661.00 ng/mlDDU (0-234) H 05/07/21 04:34 ABG pH 7.487 pH Units (7.350-7.450) H 05/08/21 09:20 ABG pCO2 39.7 mm Hg 05/08/21 09:20 ABG pO2 70.0 mm Hg (80.0-90.0) L 05/08/21 09:20 ABG HCO3 29.3 mmol/L (20.0-26.0) H 05/08/21 09:20 ABG O2 Saturation 96.1 % (95.0-99.0) 05/08/21 09:20 ABG O2 Content 10.2 (0.0-44) 05/08/21 09:20 ABG Base Excess 5.5 mmol/L (-2.0-3.0) H 05/08/21 09:20 ABG Hemoglobin 7.6 gm/dl (12.0-16.0) L 05/08/21 09:20 ABG Carboxyhemoglobin 1.5 % (0.0-5.0) 05/08/21 09:20 ABG Methemoglobin 0.4 % (0.0-1.5) 05/08/21 09:20 Oxyhemoglobin 94.3 % (95.0-99.0) L 05/08/21 09:20 FiO2 50 % 05/08/21 09:20 Sodium 135 mmol/L (137-145) L 05/08/21 14:47 Potassium 4.8 mmol/L (3.6-5.0) 05/08/21 14:47 Chloride 98.3 mmol/L (98-107) 05/08/21 14:47 Carbon Dioxide 26 mmol/L (22-30) 05/08/21 14:47 Anion Gap 16 mmol/L 05/08/21 14:47 BUN 35 mg/dL (7-17) H 05/08/21 14:47 Creatinine 1.1 mg/dL (0.6-1.2) 05/08/21 14:47 Estimated GFR 57 ml/min 05/08/21 14:47 BUN/Creatinine Ratio 32 % 05/08/21 14:47 Glucose 145 mg/dL (65-100) H 05/08/21 14:47 POC Glucose 151 mg/dL (70-105) H 05/08/21 17:08 Lactic Acid 0.80 mmol/L (0.7-2.0) 05/02/21 05:53 Calcium 9.3 mg/dL (8.4-10.2) 05/08/21 14:47 Phosphorus 2.90 mg/dL (2.5-4.5) D 05/06/21 04:56 Magnesium 2.30 mg/dL (1.7-2.3) 05/06/21 04:56 Ferritin 410.1 ng/mL (10.0-200.0) H 05/07/21 04:34 Total Bilirubin 0.30 mg/dL (0.1-1.2) 05/07/21 14:29 Direct Bilirubin < 0.2 mg/dL (0-0.2) 05/07/21 14:29 Indirect Bilirubin 0.1 mg/dL 05/07/21 14:29 AST 32 units/L (5-40) 05/07/21 14:29 ALT 52 units/L (7-56) 05/07/21 14:29 Alkaline Phosphatase 98 units/L (35-129) 05/07/21 14:29 Lactate Dehydrogenase 184 units/L (91-180) H 05/07/21 04:34 Total Creatine Kinase 189 units/L (30-135) H 05/02/21 05:53 Troponin T < 0.010 ng/mL (0.00-0.029) 05/02/21 05:16 C-Reactive Protein 10.70 mg/dL (0.00-1.30) H 05/07/21 04:34 NT-Pro-B Natriuret Pep 341.7 pg/mL (0-900) 05/02/21 05:17 Total Protein 8.6 g/dL (6.3-8.2) H 05/07/21 14:29 Albumin 3.0 g/dL (3.9-5) L 05/07/21 14:29 Albumin/Globulin Ratio 0.5 % 05/07/21 14:29 Triglycerides 62 mg/dL (2-149) 05/07/21 04:34 Procalcitonin 0.74 ng/mL (<0.15) 05/03/21 04:52 TSH 9.910 mlU/mL (0.270-4.200) H 05/07/21 04:34 Free T4 0.61 ng/dL (0.76-1.46) L 05/07/21 04:34 Coronavirus (PCR) Positive (Negative) A 05/03/21 Unknown Blood Type O POSITIVE 05/03/21 14:13 Antibody Screen Negative 05/03/21 14:13 Crossmatch See Detail 05/03/21 14:13 Microbiology: Microbiology 05/02/21 16:04 Peripheral/Venous Blood Culture - Final NO GROWTH AFTER 5 DAYS 05/02/21 15:56 Peripheral/Venous Blood Culture - Final NO GROWTH AFTER 5 DAYS Peoples/IV: Voiding Method Indwelling Catheter Active Medications - Current Medications Current Medications: Generic Name Dose Route Start Last Admin Trade Name Freq PRN Reason Stop Dose Admin Acetaminophen 650 mg 05/02/21 08:59 Acetaminophen 325 Mg/10.15 Ml Oral Liqd Unit Dose FEEDTUBE Q6H PRN Pain MILD(1-3)/Fever >100.5/[place] Albuterol/Ipratropium 1 ampul 05/04/21 08:00 05/06/21 19:53 Ipratropium/Albuterol Sulfate 3 Ml Ampul.Neb IH Not Given TIDRT JHON Budesonide 0.5 mg 05/02/21 10:00 05/06/21 19:53 Budesonide 0.5 Mg/2 Ml Nebu IH Not Given Q12HRT JHON Dexamethasone 6 mg 05/07/21 10:00 05/08/21 09:32 Dexamethasone 4 Mg/Ml Vial IV 05/12/21 10:01 6 mg Q24HR JHON Administration Dextrose 0 ml 05/03/21 11:20 05/07/21 05:45 Dextrose 10% *Hypoglycemia IV 50 ml PRN PRN Administration Hypoglycemia Docusate Sodium 100 mg 05/03/21 12:00 05/08/21 09:33 Docusate Sodium 100 Mg/10 Ml Oral Liqd PO 100 mg BID JHON Administration Famotidine 10 mg 05/06/21 22:00 05/08/21 09:33 Famotidine 10 Mg Tab FEEDTUBE 10 mg BID JHON Administration Fentanyl 50 mcg 05/03/21 11:30 05/04/21 18:18 Fentanyl 100 Mcg/2 Ml Inj IV 50 mcg Q10MIN PRN Administration ANALGESIA Furosemide 20 mg 05/08/21 14:00 05/08/21 14:54 Furosemide 20 Mg/2 Ml Inj IV 05/10/21 10:01 20 mg QDAY JHON Administration Hydralazine HCl 25 mg 05/06/21 22:00 05/08/21 14:54 Hydralazine 25 Mg Tab PO 25 mg Q8HR JHON Administration Hydralazine HCl 10 mg 05/07/21 19:25 05/07/21 19:45 Hydralazine 20 Mg/1 Ml Inj IV 10 mg Q4HR PRN Administration Hypertension Hydrophilic Ointment 1 applic 05/07/21 20:35 Lip Therapy Vaseline TP Q2HR PRN Dry Lips NORepinephrine/NS 8 MG-250 ML 8 mg in 250 mls @ 3.75 mls/hr 05/02/21 10:00 Norepinephrine/Ns 8 Mg-250 Ml (Double Conc) IV TITRATE JHON Protocol 2 MCG/MIN Fentanyl Citrate 2,000 mcg in 100 mls @ 2.397 mls/hr 05/03/21 12:00 05/08/21 17:30 Fentanyl Drip Premix IV 1 mcg/kg/hr TITR JHON 2.397 mls/hr Titration Protocol 1 MCG/KG/HR Propofol 1,000 mg in 100 mls @ 1.438 mls/hr 05/04/21 22:00 05/08/21 06:17 Diprivan 10 Mg/Ml IV 0 mcg/kg/min TITR JHON 0 mls/hr Titration Protocol 5 MCG/KG/MIN Insulin Human Lispro 0 unit 05/03/21 22:00 05/08/21 17:56 Insulin Lispro 100 Unit/Ml SUB-Q 1 unit Q4HR JHON Administration Protocol Levothyroxine Sodium 25 mcg 05/02/21 06:00 05/08/21 06:04 Levothyroxine 100 Mcg Inj IV 25 mcg DAILY@0600 JHON Administration Multi-Ingred Cream/Lotion/Oil/Oint 1 applic 05/07/21 20:35 Mineral Oil/Petrolatum, White Ophth Oint 3.5 Gm OU Q4HR PRN Dry Eye(s) Ondansetron HCl 4 mg 05/02/21 08:59 Ondansetron 4 Mg/2 Ml Inj IV Q8H PRN Nausea And Vomiting Polyethylene Glycol 17 gm 05/03/21 12:00 05/08/21 09:33 Polyethylene Glycol 3350 17 Gm Powder PO 17 gm QDAY JHON Administration Quetiapine Fumarate 100 mg 05/08/21 14:00 05/08/21 14:54 Quetiapine 100 Mg Tab PO 100 mg BID JHON Administration Senna/Docusate Sodium 1 tab 05/07/21 22:00 05/08/21 09:33 Sennosides/Docusate Sodium 8.6/50 Mg Tab FEEDTUBE 1 tab BID JHON Administration Sodium Chloride 10 ml 05/02/21 10:00 05/08/21 09:33 Sodium Chloride 0.9% 10 Ml Flush Syringe IV 10 ml BID JHON Administration Sodium Chloride 10 ml 05/02/21 08:59 Sodium Chloride 0.9% 10 Ml Flush Syringe IV PRN PRN LINE FLUSH Sodium Chloride 10 ml 05/06/21 09:58 05/06/21 10:33 Sodium Chloride 0.9% 50 Ml Ivpb IV 10 ml PRN PRN Administration FLUSH Nutrition/Malnutrition Assess - Dietary Evaluation Nutrition/Malnutrition Findings: Nutrition Notes Start: 05/03/21 14:27 Freq: Status: Active Protocol: Document 05/08/21 09:54 NATHALIE (Rec: 05/08/21 10:21 NATHALIE [id number]) Nutrition Notes Initial or Follow up Reassessment Current Diagnosis Hypertension,Respiratory Failure Other Pertinent Diagnosis COVID-19, Pneumonia, Bradycardia/PEA arrest, Constipation, Transaminitis, M Current Diet TF-Osmolite 1.5 Nando @ 40 ml/hr (since L 05/08). Labs/Tests 05/07: BUN 25. Pertinent Medications 05/08: Levothyroxine, others nutritionally unremarkable. Height 5 ft 6 in Weight 47.94 kg [place] Body Weight (kg) 59.09 BMI 17.0 Weight change and time frame No body weight changed in 2 days reported. Weight Status Underweight Subjective/Other Information RD consult for write/manage TF . Pt was extubated 05/07, and reintubated later, due to respiratory distress. TF prescription resumed. Percent of energy/protein needs met: Prescribed Osmolite 1.5 [place] @ 40 ml/hr provides for energy/ protein needs (1440 Kcal/60 g) during LOS, 100% Kcal; 100%AA . Burn Absent Trauma Absent GI Symptoms Constipation Food Allergy No Skin Integrity/Comment No skin breakdown reported Current % PO Other Minimum of two criteria No #1 Nutrition Diagnosis Inadequate oral intake Diagnosis Progress(for reassessment Continues documentation) Is patient on ventilator? Yes Is Patient Ambulatory and/or Out of Bed No REE-([facility]-confined to bed) 1119.252 Kcal/Kg value to use for calculation 30 Approximate Energy Requirements Using 1438 kcal/Kg Calculation Used for Recommendations 70-80% of EEN Additional Notes 15-20 Kcal/Kg ABW. Protein: 1.2-2 g/Kg; 58-96 g/ day. Fluids: 1 ml/Kcal, or as per MD. Nutrition Intervention Nutrition Support: Resume Osmolite 1.5 Nando @ 40 ml/hr. Flush: 120 ml water Q 4 hr, or as per MD. Kcal 1,440 Protein (gm) 60 Carbohydrates (gm) 195 Fat (gm) 47 Fluid (mL) 732 Fiber (gm) 0 % RDI: 100% Kcal; 100%AA. Goal #1 Provide at least 75% of energy /protein needs through Enteral Feeding during LOS. Goal #2 Maintain body weight within +/ -3% of admission body weight during LOS. Follow-Up By: 05/13/21 Additional Comments Continue monitoring TF tolerance and BM.
[2021-05-08] MEDS: BUDESONIDE 0.5 MG/2 ML NEBU IH SCH (20:11)
[2021-05-08] MEDS: IPRATROPIUM/ALBUTEROL SULFATE 3 ML AMPUL.NEB IH SCH (20:11)
[2021-05-08] MEDS: SODIUM CHLORIDE 0.9% 50 ML IVPB IV PRN (21:30)
--- NOTE | 2021-05-09 02:39 | XRay Report ---
CHEST 1 VIEW 05/09/2021 1:26 AM INDICATION / CLINICAL INFORMATION: follow up respiratory failure. COMPARISON: 05/08/2021 FINDINGS: SUPPORT DEVICES: Stable, satisfactory device positioning. HEART / MEDIASTINUM: No significant abnormality. LUNGS / PLEURA: Diffuse bilateral pulmonary opacities No pneumothorax. ADDITIONAL FINDINGS: No significant additional findings. IMPRESSION: 1. No significant change Signer Name: Wyatt Morillo MD Signed: 05/09/2021 2:35 AM Workstation Name: [facility]
[2021-05-09] MEDS: hydrALAZINE 25 MG TAB PO SCH ×3 (05:13→21:58)
[2021-05-09] MEDS: LEVOTHYROXINE 100 MCG INJ IV SCH (05:14)
[2021-05-09] MEDS: INSULIN LISPRO 100 UNIT/ML SUB-Q SCH ×3 (06:50→18:11)
[2021-05-09 07:27] LABS: Hematocrit 22.2 % (30.3-42.9); Hemoglobin 7.3 gm/dl (10.1-14.3); Mean Corpuscular HGB Conc 33 % (30-34); Mean Corpuscular Volume 93 fl (79-97); Platelet Count 109 K/mm3 (140-440); Red Blood Count 2.39 M/mm3 (3.65-5.03); Red Cell Distribution Width 17.7 % (13.2-15.2)
[2021-05-09] MEDS: IPRATROPIUM/ALBUTEROL SULFATE 3 ML AMPUL.NEB IH SCH ×4 (07:27→20:40)
[2021-05-09] MEDS: BUDESONIDE 0.5 MG/2 ML NEBU IH SCH ×3 (07:27→20:40)
[2021-05-09 08:46] LABS: Calcium 9.1 mg/dL (8.4-10.2)
[2021-05-09] MEDS: DOCUSATE SODIUM 100 MG/10 ML ORAL LIQD PO SCH ×2 (09:32→21:57)
[2021-05-09] MEDS: SENNOSIDES/DOCUSATE SODIUM 8.6/50 MG TAB FEEDTUBE SCH ×2 (09:32→21:58)
[2021-05-09] MEDS: FUROSEMIDE 20 MG/2 ML INJ IV SCH (09:33)
[2021-05-09] MEDS: POLYETHYLENE GLYCOL 3350 17 GM POWDER PO SCH (09:33)
[2021-05-09] MEDS: FAMOTIDINE 10 MG TAB FEEDTUBE SCH ×2 (09:33→21:58)
[2021-05-09] MEDS: QUEtiapine 100 MG TAB PO SCH ×2 (09:33→21:57)
[2021-05-09] MEDS: dexAMETHasone 4 MG/ML VIAL IV SCH (09:33)
--- NOTE | 2021-05-09 11:59 | Progress Note ---
Assessment and Plan 89-year-old female with a past medical history of hyper tension presenting to our facility with altered mental status, decreased responsiveness, bradycardia brought to the ED who 1 and then went to PEA arrest. ACLS protocol initiated with ROSC achieved. Patient taken to [facility] for temporary PPM Acute Encephalopathy Acute Respiratory Failure COVID-19 Infection Symptomatic Bradycardia (TVP removed) S/p PEA Arrest S/p Cardiogenic Shock Moderate MR MICHEAL (resolved) Hyponatremia Hyperkalemia (resolved) Anemia Thrombocytopenia Elevated LFTs HTN Euthyroid Sick Syndrome Echo 05/02/2021-EF 65 to 70%. Severe concentric LVH. Mild diastolic dysfunction is present impaired relaxation pattern. Moderate mitral regurgitation. Right ventricle is dilated. Right ventricular systolic function is normal device lead is present in right ventricle. Right atrium is dilated. No pericardial effusion Plan: Patient heart rate trending 90s Continue present management Agree with hydralazine for hypertension Patient seen in conjunction with Dr. Dalton who agrees with this plan of care - Patient Problems (1) Symptomatic bradycardia Current Visit: Yes Status: Acute Subjective Date of service: 05/09/21 Principal diagnosis: Symptomatic bradycardia; AHRF; Cardiogenic shock; Thrombocytopenia; AMS Interval history: At time of exam patient remains intubated and sedated Patient was trending sinus 90s with PACs Objective Vital Signs Temp Pulse Pulse Resp BP Pulse Ox 05/09/21 11:45 98.4 F 05/09/21 10:31 94 H 131/69 95 05/09/21 10:15 100 H 144/108 96 05/09/21 10:01 99 H 138/51 96 05/09/21 09:45 93 H 158/83 97 05/09/21 09:31 102 H 171/68 98 05/09/21 09:16 99 H 163/66 97 05/09/21 09:01 90 165/70 97 05/09/21 08:45 99 H 136/62 98 05/09/21 08:31 88 136/62 97 05/09/21 08:15 96 H 144/64 97 05/09/21 08:01 81 156/57 98 05/09/21 08:00 97.9 F 96 H 81 136/62 98 05/09/21 07:45 92 H 133/56 98 05/09/21 07:30 86 148/55 97 05/09/21 07:15 87 143/89 98 05/09/21 07:00 90 178/60 97 05/09/21 06:45 95 H 147/62 98 05/09/21 06:31 86 147/62 97 05/09/21 06:15 85 157/38 97 05/09/21 06:01 100 H 157/38 98 05/09/21 05:45 103 H 161/53 97 05/09/21 05:31 92 H 161/53 96 05/09/21 05:15 85 158/60 96 05/09/21 05:13 81 150/49 05/09/21 05:01 93 H 150/49 96 05/09/21 04:45 79 147/118 96 05/09/21 04:31 98 H 147/118 96 05/09/21 04:15 88 153/54 97 05/09/21 04:01 89 153/54 98 05/09/21 04:00 98.2 F 89 22 98 05/09/21 03:58 96 H 05/09/21 03:57 83 151/62 98 05/09/21 03:45 99 H 147/63 97 05/09/21 03:31 86 147/63 97 05/09/21 03:15 82 152/60 97 05/09/21 03:01 81 143/51 96 05/09/21 02:45 74 153/53 96 05/09/21 02:31 90 153/59 98 05/09/21 02:15 94 H 143/78 98 05/09/21 02:01 94 H 143/78 98 05/09/21 01:45 81 152/59 96 05/09/21 01:31 89 160/52 95 05/09/21 01:15 103 H 168/58 97 05/09/21 01:01 86 153/44 98 05/09/21 00:45 86 121/98 97 05/09/21 00:31 97 H 121/98 96 05/09/21 00:15 95 H 163/60 98 05/09/21 00:03 98 H 163/60 97 05/09/21 00:01 77 163/60 97 05/09/21 00:00 98.1 F 79 77 22 97 05/08/21 23:45 81 160/68 97 05/08/21 23:31 95 H 160/68 98 05/08/21 23:15 83 155/59 98 05/08/21 23:01 85 145/68 99 05/08/21 22:45 78 137/58 98 05/08/21 22:31 89 160/77 100 05/08/21 22:15 76 150/73 99 05/08/21 22:01 71 143/71 99 05/08/21 22:00 77 143/71 99 05/08/21 21:45 70 144/66 99 05/08/21 21:31 78 139/49 99 05/08/21 21:15 61 120/52 99 05/08/21 21:00 60 119/51 99 05/08/21 20:45 60 119/51 100 05/08/21 20:30 59 L 111/52 100 05/08/21 20:15 58 L 119/49 100 05/08/21 20:06 59 L 114/64 100 05/08/21 20:00 97.9 F 65 65 22 114/64 100 05/08/21 19:45 61 117/50 99 05/08/21 19:30 60 119/49 100 05/08/21 19:15 63 116/51 99 05/08/21 19:00 62 117/51 99 05/08/21 18:45 59 L 112/49 99 05/08/21 18:30 62 116/51 99 05/08/21 18:15 63 119/51 99 05/08/21 18:00 64 117/52 99 05/08/21 17:45 64 127/51 100 05/08/21 17:30 64 118/44 99 05/08/21 17:15 65 122/44 99 05/08/21 17:00 63 111/41 99 05/08/21 16:45 65 109/42 99 05/08/21 16:40 63 111/44 99 05/08/21 16:30 66 112/41 99 05/08/21 16:15 67 107/41 99 05/08/21 16:00 98.4 F 69 69 114/41 99 05/08/21 15:45 72 116/45 98 05/08/21 15:30 71 113/44 97 05/08/21 15:16 87 160/105 95 05/08/21 15:00 70 139/66 96 05/08/21 14:54 81 139/66 01/26/22 14:46 81 139/66 97 05/08/21 14:30 75 133/79 97 05/08/21 14:16 82 133/79 96 05/08/21 14:00 83 129/93 97 05/08/21 13:46 88 156/86 97 05/08/21 13:30 78 145/106 98 05/08/21 13:15 77 145/106 98 05/08/21 13:00 81 128/55 97 05/08/21 12:46 74 156/57 98 05/08/21 12:30 72 143/61 98 05/08/21 12:16 76 143/61 98 05/08/21 12:15 68 151/69 98 05/08/21 12:00 98.4 F 79 68 161/65 98 - Physical Examination General: Other (intubated and sedated) HEENT: Positive: Mucus Membranes Moist Neck: Positive: neck supple, trachea midline Cardiac: Positive: Reg Rate and Rhythm Lungs: Positive: Ventilated Respirations Neuro: Positive: Other (Pt intubated not following commands) Abdomen: Positive: Soft, Distended Skin: Negative: Rash Extremities: Present: Cool. Absent: edema - Labs and Meds CBC 05/08/21 05/09/21 Range/Units 14:47 06:47 WBC 7.5 6.7 (4.5-11.0) K/mm3 RBC 2.57 L 2.39 L (3.65-5.03) M/mm3 Hgb 7.7 L 7.3 L (10.1-14.3) gm/dl Hct 24.0 L 22.2 L (30.3-42.9) % Plt Count 113 L 109 L (140-440) K/mm3 Comprehensive Metabolic Panel 05/08/21 05/09/21 Range/Units 14:47 06:47 Sodium 135 L 137 (137-145) mmol/L Potassium 4.8 4.6 (3.6-5.0) mmol/L Chloride 98.3 98.2 (98-107) mmol/L Carbon Dioxide 26 28 (22-30) mmol/L BUN 35 H 44 H (7-17) mg/dL Creatinine 1.1 1.3 H (0.6-1.2) mg/dL Glucose 145 H 122 H (65-100) mg/dL Calcium 9.3 9.1 (8.4-10.2) mg/dL - Imaging and Cardiology EKG: report reviewed, image reviewed Echo: report reviewed - Telemetry EKG Rhythm: Sinus Rhythm - EKG Sinus rhythms and dysrhythmias: sinus rhythm Supraventricular dysrhythmia: atrial premature complexe AV and intraventricular conduction: 1 AV block Repolarization changes or abnormalities: nonspecific abnormality, ST segment, and/or T wave - Allied health notes Allied health notes reviewed: nursing
[2021-05-09 12:26] LABS: C-Reactive Protein 12.9 mg/dL (0.00-1.30)
--- NOTE | 2021-05-09 12:40 | Electrocardiograph Report ---
[facility] Test Date: 2021-05-02 Test Time: 06:42:24 Pat Name: CARYL TOWNSEND Department: Room: A263 Gender: F Acid Cutter: DILSHAD : 1930 Requested By: LIDIA TRACEY Order Number: [id number] Reading MD: Lima Sanders Measurements Intervals [place] Rate: 54 P: -33 MO: 140 QRS: 46 QRSD: 102 T: 215 QT: 486 QTc: 461 Interpretive Statements Sinus bradycardia Repol abnrm suggests ischemia, lateral leads Compared to ECG 05/02/2021 05:14:15 No significant change Electronically Signed On 05-09-2021 12:40:35 EST by Lima Sanders
--- NOTE | 2021-05-09 12:40 | Electrocardiograph Report ---
[facility] Test Date: 2021-05-02 Test Time: 05:14:15 Pat Name: CARYL TOWNSEND Department: Room: A263 Gender: F Contract Administrator: Rhoda : 1930 Requested By: LIDIA TRACEY Order Number: [id number] Reading MD: Liam Sanders Measurements Intervals [place] Rate: 41 P: 5 OR: 257 QRS: 17 QRSD: 110 T: 88 QT: 516 QTc: 429 Interpretive Statements Marked sinus bradycardia Prolonged OR interval Nonspecific T abnormalities, lateral leads No previous ECG available for comparison Electronically Signed On 05-09-2021 12:40:07 EST by Lima Sanders
--- NOTE | 2021-05-09 12:58 | Electrocardiograph Report ---
[facility] Test Date: 2021-05-03 Test Time: 13:02:56 Pat Name: CARYL TOWNSEND Department: Room: A263 Gender: F Prescription Clerk: BRUCE : 1930 Requested By: DELANO DIAZ Order Number: [id number] Reading MD: Lima Sanders Measurements Intervals [place] Rate: 68 P: 31 OR: 238 QRS: 18 QRSD: 86 T: 82 QT: 368 QTc: 391 Interpretive Statements Sinus rhythm Prolonged OR interval Compared to ECG 05/02/2021 06:42:[address] and T wave abnormalities less prominent Electronically Signed On 05-09-2021 12:57:22 EST by Lima Sanders
--- NOTE | 2021-05-09 13:16 | Progress Note ---
Assessment and Plan Symptomatic bradycardia with subsequent PEA arrest status post ROSC Acute hypoxic respiratory failure Cardiogenic shock Hypothyroidism Thrombocytopenia Acute metabolic encephalopathy Leukopenia Anemia Transaminitis Hypothermia Hyperkalemia - repeat BMP in am re: Azotemia - continue Seroquel re: agitated delirium - begin Scopolamine patch for secretion control - reduced set rate to 12/min - repeat ABG in am - Lasix 20 mg IV daily X 1 more day - am labs ordered - continue care as below otherwise; - wean vasopressors for target MAP > 65 mmHg - continue Daily SAT and SBT assessment as tolerated - continue bronchodilators with pulmonary hygiene per RT - continue to wean supplemental oxygen for target O2 sat's > 90% acutely - VAP bundle addressed - continue lung protective strategies - continue bronchodilators with pulmonary hygiene per RT - wean per pulmonary driven protocols otherwise - sedation prn for target RASS 0 to -1 - AB's per ID recommendations - continue accuchecks with glycemic control per SSI (While critically ill target blood glucose of 140-180 mg/dL; avoid hypoglycemia) - avoid nephrotoxins, renally dose all medications - continue to avoid benzodiazepine's, reduce the possibility of delirium - prn analgesia per CPOT score - Maintenance of sleep-wake cycle, avoid delirium - continue enteral nutritional support at goal rate as tolerated - G.I. & VTE prophylaxis (VTE prophylaxis with SCDs; She has required supportive blood transfusions and has thrombocytopenia) - PT/OT/ROM exercises - mobility protocols for pressure ulcer prophylaxis - Monitor hemodynamics closely - continue other care per attending / other consultants - discharge planning ongoing concurrently COVID SPECIFIC INTERVENTIONS - Remdesivir as per ID/Pulmonary developed protocols - continue systemic steroids for severe COVID-19 infection empirically (Dexamethasone) - follow repeat COVID tests results - zinc and vitamin C supplementation - Monitor inflammatory markers per facility protocol - ferritin, Ddimer, CRP - therapeutic anticoagulation per system Protocol based on d-dimer and clinical considerations - Continue contact and airborne isolation .... Re-evaluate in am & prn CONDITION: CRITICAL PROGNOSIS: GUARDED CODE STATUS: FULL CODE The high probability of a clinically significant, sudden or life-threatening deterioration of the [respiratory, cardiovascular & neurologic] system(s) required my full and direct attention, intervention and personal management. The aggregate critical care time was [36] minutes without overlap. Time includes spe nt on; [x] Data Review and interpretation [x] Patient assessment and monitoring of vital signs [x] Documentation [x] Medication orders and management Subjective Date of service: 05/09/21 Principal diagnosis: Symptomatic bradycardia; AHRF; Cardiogenic shock; Thrombocytopenia; AMS Interval history: Patient is seen today for: Symptomatic bradycardia; Acute hypoxic respiratory failure; Cardiogenic shock; Hypothyroidism; Thrombocytopenia; AMS; Hyperkalemia Seen and examined at bedside; 24hour events reviewed; nursing and respiratory care staff consulted; no adverse overnight events reported to me; resting in bed; remains on MVS; ETT secretions moderate to large; no emesis or overt aspiration; constipated; afebrile Objective Vital Signs - 12hr 05/09/21 05/09/21 05/09/21 01:31 01:45 02:01 Temperature Pulse Rate 89 81 94 H Pulse Rate [ From Monitor] Respiratory Rate Blood Pressure 160/52 152/59 143/78 O2 Sat by Pulse 95 96 98 Oximetry 05/09/21 05/09/21 05/09/21 02:15 02:31 02:45 Temperature Pulse Rate 94 H 90 74 Pulse Rate [ From Monitor] Respiratory Rate Blood Pressure 143/78 153/59 153/53 O2 Sat by Pulse 98 98 96 Oximetry 05/09/21 05/09/21 05/09/21 03:01 03:15 03:31 Temperature Pulse Rate 81 82 86 Pulse Rate [ From Monitor] Respiratory Rate Blood Pressure 143/51 152/60 147/63 O2 Sat by Pulse 96 97 97 Oximetry 05/09/21 05/09/21 05/09/21 03:45 03:57 03:58 Temperature Pulse Rate 99 H 83 96 H Pulse Rate [ From Monitor] Respiratory Rate Blood Pressure 147/63 151/62 O2 Sat by Pulse 97 98 Oximetry 05/09/21 05/09/21 05/09/21 04:00 04:01 04:15 Temperature 98.2 F Pulse Rate 89 88 Pulse Rate [ 89 From Monitor] Respiratory 22 Rate Blood Pressure 153/54 153/54 O2 Sat by Pulse 98 98 97 Oximetry 05/09/21 05/09/21 05/09/21 04:31 04:45 05:01 Temperature Pulse Rate 98 H 79 93 H Pulse Rate [ From Monitor] Respiratory Rate Blood Pressure 147/118 147/118 150/49 O2 Sat by Pulse 96 96 96 Oximetry 05/09/21 05/09/21 05/09/21 05:13 05:15 05:31 Temperature Pulse Rate 81 85 92 H Pulse Rate [ From Monitor] Respiratory Rate Blood Pressure 150/49 158/60 161/53 O2 Sat by Pulse 96 96 Oximetry 05/09/21 05/09/21 05/09/21 05:45 06:01 06:15 Temperature Pulse Rate 103 H 100 H 85 Pulse Rate [ From Monitor] Respiratory Rate Blood Pressure 161/53 157/38 157/38 O2 Sat by Pulse 97 98 97 Oximetry 05/09/21 05/09/21 05/09/21 06:31 06:45 07:00 Temperature Pulse Rate 86 95 H 90 Pulse Rate [ From Monitor] Respiratory Rate Blood Pressure 147/62 147/62 178/60 O2 Sat by Pulse 97 98 97 Oximetry 05/09/21 05/09/21 05/09/21 07:15 07:30 07:45 Temperature Pulse Rate 87 86 92 H Pulse Rate [ From Monitor] Respiratory Rate Blood Pressure 143/89 148/55 133/56 O2 Sat by Pulse 98 97 98 Oximetry 05/09/21 05/09/21 05/09/21 08:00 08:01 08:15 Temperature 97.9 F Pulse Rate 96 H 81 96 H Pulse Rate [ 81 From Monitor] Respiratory Rate Blood Pressure 136/62 156/57 144/64 O2 Sat by Pulse 98 98 97 Oximetry 05/09/21 05/09/21 05/09/21 08:31 08:45 09:01 Temperature Pulse Rate 88 99 H 90 Pulse Rate [ From Monitor] Respiratory Rate Blood Pressure 136/62 136/62 165/70 O2 Sat by Pulse 97 98 97 Oximetry 05/09/21 05/09/21 05/09/21 09:16 09:31 09:45 Temperature Pulse Rate 99 H 102 H 93 H Pulse Rate [ From Monitor] Respiratory Rate Blood Pressure 163/66 171/68 158/83 O2 Sat by Pulse 97 98 97 Oximetry 05/09/21 05/09/21 05/09/21 10:01 10:15 10:31 Temperature Pulse Rate 99 H 100 H 94 H Pulse Rate [ From Monitor] Respiratory Rate Blood Pressure 138/51 144/108 131/69 O2 Sat by Pulse 96 96 95 Oximetry 05/09/21 05/09/21 11:45 12:00 Temperature 98.4 F Pulse Rate 86 Pulse Rate [ From Monitor] Respiratory Rate Blood Pressure 131/69 O2 Sat by Pulse 96 Oximetry Constitutional: appears uncomfortable, other (elderly female with mildly increased respiratory effort at rest on MVS) Eyes: non-icteric ENT: oropharynx moist, other (ETT 24 cm HIMANSHU) Neck: supple, no lymphadenopathy, no JVD Effort: mildly labored Ascultation: Bilateral: diminished breath sounds, rales (bilateral) Percussion: Bilateral: not dull Cardiovascular: regular rate and rhythm, other (S1,S2) Gastrointestinal: normoactive bowel sounds, soft, non-distended, other (distended suprapubic area- possibly bladder) Integumentary: normal Extremities: no cyanosis, no edema, pulses normal, no ischemia or petechiae Neurologic: non-focal exam (grossly), pupils equal and round, unable to assess, other (sedated) Psychiatric: anxious, other (delirious) CBC and BMP: 05/09/21 06:47 05/09/21 06:47 ABG, PT/INR, D-dimer: ABG ABG pH 7.487 pH Units (7.350-7.450) H 05/08/21 09:20 ABG pCO2 39.7 mm Hg 05/08/21 09:20 ABG pO2 70.0 mm Hg (80.0-90.0) L 05/08/21 09:20 ABG O2 Saturation 96.1 % (95.0-99.0) 05/08/21 09:20 PT/INR, D-dimer PT 15.1 Sec. (12.2-14.9) H 05/02/21 05:16 INR 1.07 (0.87-1.13) 05/02/21 05:16 D-Dimer 2342.13 ng/mlDDU (0-234) H 05/09/21 06:47 Abnormal lab findings: Abnormal Labs 05/02/21 05/02/21 05/02/21 05:16 05:16 05:16 WBC 2.9 L RBC 2.36 L Hgb 7.4 L Hct 22.2 L RDW 18.2 H Plt Count Lymph % (Auto) Lymph # (Auto) 0.5 L Seg Neutrophils % 76.5 H Seg Neuts % (Manual) Lymphocytes % (Manual) Lymphocytes # (Manual) PT 15.1 H APTT 41.7 H D-Dimer ABG pH ABG pO2 ABG HCO3 ABG O2 Saturation ABG Base Excess ABG Hemoglobin Oxyhemoglobin Sodium 129 L Potassium 6.2 H* Chloride 97.0 L Carbon Dioxide BUN Creatinine Glucose POC Glucose Magnesium Ferritin AST ALT Lactate Dehydrogenase Total Creatine Kinase C-Reactive Protein Total Protein Albumin TSH Free T4 Coronavirus (PCR) Crossmatch 05/02/21 05/02/21 05/02/21 05:17 05:53 06:41 WBC RBC Hgb Hct RDW Plt Count Lymph % (Auto) Lymph # (Auto) Seg Neutrophils % Seg Neuts % (Manual) Lymphocytes % (Manual) Lymphocytes # (Manual) PT APTT D-Dimer ABG pH ABG pO2 ABG HCO3 ABG O2 Saturation ABG Base Excess ABG Hemoglobin Oxyhemoglobin Sodium Potassium Chloride Carbon Dioxide BUN Creatinine Glucose POC Glucose Magnesium Ferritin AST 144 H ALT 115 H Lactate Dehydrogenase Total Creatine Kinase 189 H C-Reactive Protein Total Protein 9.6 H Albumin 2.9 L TSH 10.350 H Free T4 0.61 L Coronavirus (PCR) Crossmatch 05/02/21 05/02/21 05/03/21 11:50 15:56 04:52 WBC RBC 2.20 L Hgb 6.8 L Hct 20.6 L RDW 18.4 H Plt Count Lymph % (Auto) Lymph # (Auto) Seg Neutrophils % Seg Neuts % (Manual) 86.0 H Lymphocytes % (Manual) 3.0 L Lymphocytes # (Manual) 0.1 L PT APTT D-Dimer ABG pH ABG pO2 352.4 H ABG HCO3 ABG O2 Saturation 99.5 H ABG Base Excess ABG Hemoglobin 6.9 L Oxyhemoglobin Sodium Potassium 5.8 H Chloride Carbon Dioxide BUN Creatinine Glucose POC Glucose Magnesium Ferritin AST ALT Lactate Dehydrogenase Total Creatine Kinase C-Reactive Protein Total Protein Albumin TSH Free T4 Coronavirus (PCR) Crossmatch 05/03/21 05/03/21 05/03/21 04:52 10:10 10:23 WBC RBC Hgb Hct RDW Plt Count Lymph % (Auto) Lymph # (Auto) Seg Neutrophils % Seg Neuts % (Manual) Lymphocytes % (Manual) Lymphocytes # (Manual) PT APTT D-Dimer ABG pH ABG pO2 177.2 H ABG HCO3 ABG O2 Saturation 99.1 H ABG Base Excess ABG Hemoglobin 7.1 L Oxyhemoglobin Sodium 129 L Potassium 6.2 H* Chloride 97.0 L Carbon Dioxide BUN 25 H Creatinine Glucose POC Glucose 106 H Magnesium Ferritin AST 152 H ALT 127 H Lactate Dehydrogenase Total Creatine Kinase C-Reactive Protein Total Protein 8.6 H Albumin 2.6 L TSH Free T4 Coronavirus (PCR) Crossmatch 05/03/21 05/03/21 05/03/21 13:11 14:13 16:49 WBC RBC Hgb Hct RDW Plt Count Lymph % (Auto) Lymph # (Auto) Seg Neutrophils % Seg Neuts % (Manual) Lymphocytes % (Manual) Lymphocytes # (Manual) PT APTT D-Dimer ABG pH ABG pO2 ABG HCO3 ABG O2 Saturation ABG Base Excess ABG Hemoglobin Oxyhemoglobin Sodium Potassium Chloride Carbon Dioxide BUN Creatinine Glucose POC Glucose 116 H 58 L Magnesium Ferritin AST ALT Lactate Dehydrogenase Total Creatine Kinase C-Reactive Protein Total Protein Albumin TSH Free T4 Coronavirus (PCR) Crossmatch See Detail 05/03/21 05/03/21 05/03/21 17:34 19:58 20:07 WBC RBC Hgb Hct RDW Plt Count Lymph % (Auto) Lymph # (Auto) Seg Neutrophils % Seg Neuts % (Manual) Lymphocytes % (Manual) Lymphocytes # (Manual) PT APTT D-Dimer ABG pH ABG pO2 ABG HCO3 ABG O2 Saturation ABG Base Excess ABG Hemoglobin Oxyhemoglobin Sodium 131 L Potassium 5.7 H Chloride 97.7 L Carbon Dioxide 21 L BUN 28 H Creatinine 1.4 H Glucose 130 H POC Glucose 123 H 122 H Magnesium Ferritin AST ALT Lactate Dehydrogenase Total Creatine Kinase C-Reactive Protein Total Protein Albumin TSH Free T4 Coronavirus (PCR) Crossmatch 05/03/21 05/03/21 05/04/21 Unknown 23:59 02:59 WBC RBC Hgb Hct RDW Plt Count Lymph % (Auto) Lymph # (Auto) Seg Neutrophils % Seg Neuts % (Manual) Lymphocytes % (Manual) Lymphocytes # (Manual) PT APTT D-Dimer ABG pH ABG pO2 ABG HCO3 ABG O2 Saturation ABG Base Excess ABG Hemoglobin Oxyhemoglobin Sodium Potassium Chloride Carbon Dioxide BUN Creatinine Glucose POC Glucose 117 H 142 H Magnesium Ferritin AST ALT Lactate Dehydrogenase Total Creatine Kinase C-Reactive Protein Total Protein Albumin TSH Free T4 Coronavirus (PCR) Positive A Crossmatch 05/04/21 05/04/21 05/04/21 03:15 09:41 09:41 WBC RBC 2.28 L Hgb 7.1 L Hct 21.4 L RDW 18.5 H Plt Count 97 L Lymph % (Auto) 10.4 L Lymph # (Auto) 0.6 L Seg Neutrophils % 84.7 H Seg Neuts % (Manual) Lymphocytes % (Manual) Lymphocytes # (Manual) PT APTT D-Dimer ABG pH ABG pO2 ABG HCO3 ABG O2 Saturation ABG Base Excess ABG Hemoglobin 6.9 L Oxyhemoglobin 94.9 L Sodium 132 L Potassium Chloride Carbon Dioxide 21 L BUN 33 H Creatinine 1.4 H Glucose 143 H POC Glucose Magnesium Ferritin AST ALT Lactate Dehydrogenase Total Creatine Kinase C-Reactive Protein Total Protein Albumin TSH Free T4 Coronavirus (PCR) Crossmatch 05/04/21 05/04/21 05/04/21 11:43 16:48 21:31 WBC RBC Hgb Hct RDW Plt Count Lymph % (Auto) Lymph # (Auto) Seg Neutrophils % Seg Neuts % (Manual) Lymphocytes % (Manual) Lymphocytes # (Manual) PT APTT D-Dimer ABG pH ABG pO2 ABG HCO3 ABG O2 Saturation ABG Base Excess ABG Hemoglobin Oxyhemoglobin Sodium Potassium Chloride Carbon Dioxide BUN Creatinine Glucose POC Glucose 125 H 129 H 124 H Magnesium Ferritin AST ALT Lactate Dehydrogenase Total Creatine Kinase C-Reactive Protein Total Protein Albumin TSH Free T4 Coronavirus (PCR) Crossmatch 05/05/21 05/05/21 05/05/21 01:32 02:30 04:35 WBC RBC Hgb Hct RDW Plt Count Lymph % (Auto) Lymph # (Auto) Seg Neutrophils % Seg Neuts % (Manual) Lymphocytes % (Manual) Lymphocytes # (Manual) PT APTT D-Dimer ABG pH ABG pO2 123.1 H ABG HCO3 ABG O2 Saturation ABG Base Excess ABG Hemoglobin 5.9 L Oxyhemoglobin Sodium Potassium Chloride Carbon Dioxide BUN Creatinine Glucose POC Glucose 128 H Magnesium Ferritin AST 54 H ALT 70 H Lactate Dehydrogenase Total Creatine Kinase C-Reactive Protein Total Protein 8.4 H Albumin 2.5 L TSH Free T4 Coronavirus (PCR) Crossmatch 05/05/21 05/05/21 05/05/21 04:35 04:35 06:11 WBC 4.4 L RBC 2.04 L Hgb 6.3 L Hct 19.1 L* RDW 18.3 H Plt Count 77 L Lymph % (Auto) Lymph # (Auto) Seg Neutrophils % Seg Neuts % (Manual) Lymphocytes % (Manual) Lymphocytes # (Manual) PT APTT D-Dimer ABG pH ABG pO2 ABG HCO3 ABG O2 Saturation ABG Base Excess ABG Hemoglobin Oxyhemoglobin Sodium 131 L Potassium Chloride Carbon Dioxide 21 L BUN 31 H Creatinine Glucose 158 H POC Glucose 165 H Magnesium 2.40 H Ferritin AST ALT Lactate Dehydrogenase Total Creatine Kinase C-Reactive Protein Total Protein Albumin TSH Free T4 Coronavirus (PCR) Crossmatch 05/05/21 05/05/21 05/05/21 07:20 17:01 23:25 WBC RBC Hgb Hct RDW Plt Count Lymph % (Auto) Lymph # (Auto) Seg Neutrophils % Seg Neuts % (Manual) Lymphocytes % (Manual) Lymphocytes # (Manual) PT APTT D-Dimer ABG pH ABG pO2 ABG HCO3 ABG O2 Saturation ABG Base Excess ABG Hemoglobin Oxyhemoglobin Sodium Potassium Chloride Carbon Dioxide BUN Creatinine Glucose POC Glucose 152 H 114 H 148 H Magnesium Ferritin AST ALT Lactate Dehydrogenase Total Creatine Kinase C-Reactive Protein Total Protein Albumin TSH Free T4 Coronavirus (PCR) Crossmatch 05/06/21 05/06/21 05/06/21 04:56 04:56 05:37 WBC RBC 2.54 L Hgb 7.7 L Hct 23.2 L RDW 18.1 H Plt Count 73 L Lymph % (Auto) Lymph # (Auto) Seg Neutrophils % Seg Neuts % (Manual) Lymphocytes % (Manual) Lymphocytes # (Manual) PT APTT D-Dimer ABG pH ABG pO2 ABG HCO3 ABG O2 Saturation ABG Base Excess ABG Hemoglobin Oxyhemoglobin Sodium 134 L Potassium 5.1 H Chloride Carbon Dioxide BUN 30 H Creatinine Glucose 133 H POC Glucose 120 H Magnesium Ferritin AST ALT Lactate Dehydrogenase Total Creatine Kinase C-Reactive Protein Total Protein Albumin TSH Free T4 Coronavirus (PCR) Crossmatch 05/06/21 05/06/21 05/07/21 14:14 15:40 04:34 WBC RBC 2.69 L Hgb 8.2 L Hct 24.7 L RDW 18.3 H Plt Count 80 L Lymph % (Auto) Lymph # (Auto) Seg Neutrophils % Seg Neuts % (Manual) Lymphocytes % (Manual) Lymphocytes # (Manual) PT APTT D-Dimer ABG pH ABG pO2 72.2 L ABG HCO3 28.0 H ABG O2 Saturation ABG Base Excess 3.6 H ABG Hemoglobin 5.6 L Oxyhemoglobin Sodium Potassium Chloride Carbon Dioxide BUN Creatinine Glucose POC Glucose Magnesium Ferritin AST ALT Lactate Dehydrogenase Total Creatine Kinase C-Reactive Protein 7.30 H Total Protein Albumin TSH Free T4 Coronavirus (PCR) Crossmatch 05/07/21 05/07/21 05/07/21 04:34 04:34 04:34 WBC RBC Hgb Hct RDW Plt Count Lymph % (Auto) Lymph # (Auto) Seg Neutrophils % Seg Neuts % (Manual) Lymphocytes % (Manual) Lymphocytes # (Manual) PT APTT D-Dimer 1661.00 H ABG pH ABG pO2 ABG HCO3 ABG O2 Saturation ABG Base Excess ABG Hemoglobin Oxyhemoglobin Sodium Potassium Chloride Carbon Dioxide BUN 25 H Creatinine Glucose POC Glucose Magnesium Ferritin 410.1 H AST ALT Lactate Dehydrogenase 184 H Total Creatine Kinase C-Reactive Protein 10.70 H Total Protein Albumin TSH Free T4 Coronavirus (PCR) Crossmatch 05/07/21 05/07/21 05/07/21 04:34 04:34 06:14 WBC RBC Hgb Hct RDW Plt Count Lymph % (Auto) Lymph # (Auto) Seg Neutrophils % Seg Neuts % (Manual) Lymphocytes % (Manual) Lymphocytes # (Manual) PT APTT D-Dimer ABG pH ABG pO2 ABG HCO3 ABG O2 Saturation ABG Base Excess ABG Hemoglobin Oxyhemoglobin Sodium Potassium Chloride Carbon Dioxide BUN Creatinine Glucose POC Glucose 134 H Magnesium Ferritin AST ALT Lactate Dehydrogenase Total Creatine Kinase C-Reactive Protein Total Protein Albumin TSH 9.910 H Free T4 0.61 L Coronavirus (PCR) Crossmatch 05/07/21 05/07/21 05/07/21 12:42 14:29 16:08 WBC RBC Hgb Hct RDW Plt Count Lymph % (Auto) Lymph # (Auto) Seg Neutrophils % Seg Neuts % (Manual) Lymphocytes % (Manual) Lymphocytes # (Manual) PT APTT D-Dimer ABG pH ABG pO2 ABG HCO3 27.6 H ABG O2 Saturation ABG Base Excess ABG Hemoglobin 8.8 L Oxyhemoglobin Sodium Potassium Chloride Carbon Dioxide BUN Creatinine Glucose POC Glucose 121 H Magnesium Ferritin AST ALT Lactate Dehydrogenase Total Creatine Kinase C-Reactive Protein Total Protein 8.6 H Albumin 3.0 L TSH Free T4 Coronavirus (PCR) Crossmatch 05/07/21 05/07/21 05/07/21 18:19 21:17 21:25 WBC RBC Hgb Hct RDW Plt Count Lymph % (Auto) Lymph # (Auto) Seg Neutrophils % Seg Neuts % (Manual) Lymphocytes % (Manual) Lymphocytes # (Manual) PT APTT D-Dimer ABG pH 7.311 L ABG pO2 95.5 H ABG HCO3 28.6 H ABG O2 Saturation ABG Base Excess ABG Hemoglobin 7.8 L Oxyhemoglobin Sodium Potassium Chloride Carbon Dioxide BUN Creatinine Glucose POC Glucose 149 H 143 H Magnesium Ferritin AST ALT Lactate Dehydrogenase Total Creatine Kinase C-Reactive Protein Total Protein Albumin TSH Free T4 Coronavirus (PCR) Crossmatch 05/08/21 05/08/21 05/08/21 06:33 07:29 09:20 WBC RBC Hgb Hct RDW Plt Count Lymph % (Auto) Lymph # (Auto) Seg Neutrophils % Seg Neuts % (Manual) Lymphocytes % (Manual) Lymphocytes # (Manual) PT APTT D-Dimer ABG pH 7.487 H ABG pO2 70.0 L ABG HCO3 29.3 H ABG O2 Saturation ABG Base Excess 5.5 H ABG Hemoglobin 7.6 L Oxyhemoglobin 94.3 L Sodium Potassium Chloride Carbon Dioxide BUN Creatinine Glucose POC Glucose 148 H 151 H Magnesium Ferritin AST ALT Lactate Dehydrogenase Total Creatine Kinase C-Reactive Protein Total Protein Albumin TSH Free T4 Coronavirus (PCR) Crossmatch 05/08/21 05/08/21 05/08/21 11:23 14:47 14:47 WBC RBC 2.57 L Hgb 7.7 L Hct 24.0 L RDW 17.9 H Plt Count 113 L Lymph % (Auto) Lymph # (Auto) Seg Neutrophils % Seg Neuts % (Manual) Lymphocytes % (Manual) Lymphocytes # (Manual) PT APTT D-Dimer ABG pH ABG pO2 ABG HCO3 ABG O2 Saturation ABG Base Excess ABG Hemoglobin Oxyhemoglobin Sodium 135 L Potassium Chloride Carbon Dioxide BUN 35 H Creatinine Glucose 145 H POC Glucose 124 H Magnesium Ferritin AST ALT Lactate Dehydrogenase Total Creatine Kinase C-Reactive Protein Total Protein Albumin TSH Free T4 Coronavirus (PCR) Crossmatch 05/08/21 05/08/21 05/09/21 17:08 23:23 05:37 WBC RBC Hgb Hct RDW Plt Count Lymph % (Auto) Lymph # (Auto) Seg Neutrophils % Seg Neuts % (Manual) Lymphocytes % (Manual) Lymphocytes # (Manual) PT APTT D-Dimer ABG pH ABG pO2 ABG HCO3 ABG O2 Saturation ABG Base Excess ABG Hemoglobin Oxyhemoglobin Sodium Potassium Chloride Carbon Dioxide BUN Creatinine Glucose POC Glucose 151 H 127 H 118 H Magnesium Ferritin AST ALT Lactate Dehydrogenase Total Creatine Kinase C-Reactive Protein Total Protein Albumin TSH Free T4 Coronavirus (PCR) Crossmatch 05/09/21 05/09/21 05/09/21 06:47 06:47 06:47 WBC RBC Hgb Hct RDW Plt Count Lymph % (Auto) Lymph # (Auto) Seg Neutrophils % Seg Neuts % (Manual) Lymphocytes % (Manual) Lymphocytes # (Manual) PT APTT D-Dimer 2342.13 H ABG pH ABG pO2 ABG HCO3 ABG O2 Saturation ABG Base Excess ABG Hemoglobin Oxyhemoglobin Sodium Potassium Chloride Carbon Dioxide BUN 44 H Creatinine 1.3 H Glucose 122 H POC Glucose Magnesium Ferritin 500.1 H AST ALT Lactate Dehydrogenase 212 H Total Creatine Kinase C-Reactive Protein 12.90 H Total Protein Albumin TSH Free T4 Coronavirus (PCR) Crossmatch 05/09/21 05/09/21 06:47 09:53 WBC RBC 2.39 L Hgb 7.3 L Hct 22.2 L RDW 17.7 H Plt Count 109 L Lymph % (Auto) Lymph # (Auto) Seg Neutrophils % Seg Neuts % (Manual) Lymphocytes % (Manual) Lymphocytes # (Manual) PT APTT D-Dimer ABG pH ABG pO2 ABG HCO3 ABG O2 Saturation ABG Base Excess ABG Hemoglobin Oxyhemoglobin Sodium Potassium Chloride Carbon Dioxide BUN Creatinine Glucose POC Glucose 132 H Magnesium Ferritin AST ALT Lactate Dehydrogenase Total Creatine Kinase C-Reactive Protein Total Protein Albumin TSH Free T4 Coronavirus (PCR) Crossmatch Chest x-ray: image reviewed (no changes last 24 hours) Allied health notes reviewed: nursing
[2021-05-09] MEDS ORDERED: MAGNESIUM CITRATE 300 ML ORAL LIQD PO ONE (14:00)
[2021-05-09 14:01] LABS: Alanine Aminotransferase 37 units/L (7-56); Albumin 2.6 g/dL (3.9-5)
[2021-05-09 14:05] LABS: Bilirubin,Direct < 0.2 mg/dL (0-0.2)
--- NOTE | 2021-05-09 14:06 | Progress Note ---
Assessment and Plan Cultures: Blood culture 05/02/2021 no growth Sputum culture 05/02/2021 no growth A/P: 89-year-old female past medical history hypertension now with: #Severe COVID-19 pneumonia: Patient presented with a week of symptoms, chest x- ray with diffuse bilateral infiltrates, admission O2 sats on room air. Inflammatory markers elevated #Acute hypoxemic respiratory failure: Likely secondary to COVID-19 infection. Currently on the vent #PEA arrest: ROSC achieved after 1 round of epi Recommendations: -Dexamethasone 6 mg IV/PO daily for 10 days -Obtain q48-72h inflammatory markers - ferritin, Ddimer, CRP, LDH -Complete 5 days cefepime -Anticoagulation per hospital protocol -Proning as able Thank you for the consult, we will continue to follow. Rhianna Gallagher MD [facility] ([facility] O: [phone] F: [phone] Subjective Date of service: 05/09/21 Principal diagnosis: Symptomatic bradycardia; AHRF; Cardiogenic shock; Thrombocytopenia; AMS Interval history: Afebrile, normal white count. Imaging personally reviewed: Chest x-ray: No significant change. Objective - Exam Narrative Exam: Physical exam deferred to reduce risk of transmission of COVID-19. Please refer to primary team's note. - Constitutional Vitals: Vital Signs Temp Pulse Resp BP Pulse Ox 98.4 F 86 22 131/69 96 05/09/21 11:45 05/09/21 12:00 05/09/21 04:00 05/09/21 12:00 05/09/21 12:00 Temperature -Last 24 Hours Temperature 98.4 F Temperature 97.9 F Temperature 98.2 F Temperature 98.1 F Temperature 97.9 F Temperature 98.4 F - Labs CBC & Chem 7: 05/09/21 06:47 05/09/21 06:47 Labs: Abnormal lab results 05/08/21 05/08/21 05/08/21 Range/Units 14:47 14:47 17:08 RBC 2.57 L (3.65-5.03) M/mm3 Hgb 7.7 L (10.1-14.3) gm/dl Hct 24.0 L (30.3-42.9) % RDW 17.9 H (13.2-15.2) % Plt Count 113 L (140-440) K/mm3 D-Dimer (0-234) ng/mlDDU Sodium 135 L (137-145) mmol/L BUN 35 H (7-17) mg/dL Creatinine (0.6-1.2) mg/dL Glucose 145 H (65-100) mg/dL POC Glucose 151 H (70-105) mg/dL Ferritin (10.0-200.0) ng/mL Lactate Dehydrogenase (91-180) units/L C-Reactive Protein (0.00-1.30) mg/dL Total Protein (6.3-8.2) g/dL Albumin (3.9-5) g/dL 05/08/21 05/09/21 05/09/21 Range/Units 23:23 05:37 06:47 RBC (3.65-5.03) M/mm3 Hgb (10.1-14.3) gm/dl Hct (30.3-42.9) % RDW (13.2-15.2) % Plt Count (140-440) K/mm3 D-Dimer 2342.13 H (0-234) ng/mlDDU Sodium (137-145) mmol/L BUN (7-17) mg/dL Creatinine (0.6-1.2) mg/dL Glucose (65-100) mg/dL POC Glucose 127 H 118 H (70-105) mg/dL Ferritin (10.0-200.0) ng/mL Lactate Dehydrogenase (91-180) units/L C-Reactive Protein (0.00-1.30) mg/dL Total Protein (6.3-8.2) g/dL Albumin (3.9-5) g/dL 05/09/21 05/09/21 05/09/21 Range/Units 06:47 06:47 06:47 RBC 2.39 L (3.65-5.03) M/mm3 Hgb 7.3 L (10.1-14.3) gm/dl Hct 22.2 L (30.3-42.9) % RDW 17.7 H (13.2-15.2) % Plt Count 109 L (140-440) K/mm3 D-Dimer (0-234) ng/mlDDU Sodium (137-145) mmol/L BUN 44 H (7-17) mg/dL Creatinine 1.3 H (0.6-1.2) mg/dL Glucose 122 H (65-100) mg/dL POC Glucose (70-105) mg/dL Ferritin 500.1 H (10.0-200.0) ng/mL Lactate Dehydrogenase 212 H (91-180) units/L C-Reactive Protein 12.90 H (0.00-1.30) mg/dL Total Protein (6.3-8.2) g/dL Albumin (3.9-5) g/dL 05/09/21 05/09/21 Range/Units 09:53 13:16 RBC (3.65-5.03) M/mm3 Hgb (10.1-14.3) gm/dl Hct (30.3-42.9) % RDW (13.2-15.2) % Plt Count (140-440) K/mm3 D-Dimer (0-234) ng/mlDDU Sodium (137-145) mmol/L BUN (7-17) mg/dL Creatinine (0.6-1.2) mg/dL Glucose (65-100) mg/dL POC Glucose 132 H (70-105) mg/dL Ferritin (10.0-200.0) ng/mL Lactate Dehydrogenase (91-180) units/L C-Reactive Protein (0.00-1.30) mg/dL Total Protein 8.3 H (6.3-8.2) g/dL Albumin 2.6 L (3.9-5) g/dL
[2021-05-09] MEDS: SCOPOLAMINE TRANSDERMAL PATCH 72 HR TD SCH (14:51)
--- NOTE | 2021-05-09 15:59 | Progress Note ---
Assessment and Plan Assessment and plan: Assessment and Plan This is a 89-year-old female HTN, legally blind, nicotine abuse, [place] and recent UTI initially admitted for bradycardia and AMS. Patient subsequently PEA arrested with ROSC in the ED was intubated and placed on ventilatory support. Then was taken to [facility] for emergent transvenous pacemaker placement by Cardio. Symptomatic bradycardia, s/p PEA arrest, cardiogenic shock, h/o hypertension -S/p transvenous pacemaker (05/02-05/07) -Cardiology consulted, appreciate recommendations -S/p atropine with transient response-> PEA arrest -S/p dopamine drip -05/02 echocardiogram shows EF of 65 to 70% -Started on p.o. hydralazine for hypertension -Blood pressure monitor per protocol Acute hypoxic respiratory failure -Intubated on 05/02 and extubated 05/08 with a 7.00 ETT at 22 at the lips -Noted to have increased work of breathing and reintubated on 05/08 with 7.50 ETT at -CCM consulted, appreciate recommendations -A.m. vent settings AC rate 20, tidal volume 400, PEEP 8, FiO2 30% -See RT notes for titration -ABG and CXR per [facility] -VAP bundle -Continuous SPO2 monitoring -Started on steroids due to low angioedema Severe COVID-19 pneumonia -CXR showed diffuse bilateral infiltrates, hypoxia on admission -Infectious disease consulted, appreciate recommendations -s/p Dexamethasone for 10 days -s/p cefepime for 5 days -Anticoagulation per protocol -Trend COVID-19 inflammatory markers -Droplet/isolation precautions Acute metabolic encephalopathy, h/o legally blind -Avoid delirium -Maintain sleep-wake cycle -Sedated with fentanyl -RASS goal 0 to -1 -Started on Seroquel Severe constipation, transaminitis -24 hours 460 mL -No BM recorded since admit -ducolax suppository given with no response -04/14 25 KUB shows constipation -will give mag citrate -BR: Colace, Senokot -PPI -Trend LFT Thrombocytopenia, anemia, leukopenia (resolved) -HIT panel pending -Platelets noted 73 K 05/06 Now slowly improving -SCD to bilateral lower extremity while in bed -Trend CBC -Transfuse hemoglobin less than 7 -Hold chemical anticoagulation for now Sick thyroid syndrome -Levothyroxine -TSH 10.35, free T4 0.61 -Repeat TSH 9.9/FT 4 0.61 The high probability of a clinically significant, sudden or life threatening de terioration of the [multi] system(s) required my full and direct attention, intervention and personal management. The aggregate critical care time was [60] minutes. This time is in addition to time spent performing reported procedures but includes the following: [x] Data Review and interpretation [x] Patient assessment and monitoring of vital signs [x] Documentation [x] Medication orders and management Disposition Plan: icu Total Time Spent with Patient (Minutes): 60 History Interval history: This is a 89-year-old female with hypertension, legally blind, recent UTI, nicotine abuse hard of hearing who presented to the emergency department on 05/02 with AMS, decreased p.o. of note, bradycardia via EMS. Per family patient has been exhibiting mumbling/hallucination/strange paranoid behavior approximately 2 weeks prior to presentation and was seen by her PCP who noticed that her blood pressure was extremely elevated in the office documented systolic of 240 and she was treated for high blood pressure and UTI at that time. She improved after this per family but subsequently worsened and request to same behavior exhibited 2 weeks ago and became unresponsive prior to arrival. Per EMS patient was noted to be bradycardic to 38 bpm and given atropine with improvement in heart rate to 65 however the patient shortly thereafter bradyed down to 45 bpm. In the emergency department patient was confused. The emergency department patient lost a pulse and went into PEA arrest and ACLS was initiated by ED staff and ROSC was achieved after 1 round of epinephrine. Patient was taken immediately to the [facility] by cardiology for transvenous pacemaker placement and was intubated. Patient was admitted to the hospitalist service with symptomatic bradycardia, s/p cardiac arrest, acute hypoxic respiratory failure, cardiogenic shock, electrode imbalances, hypothermia, acute metabolic encephalopathy, euthyroid sick syndrome, transaminitis with consults to cardiology, pulmonology and eventually infectious disease. Hospital Course to Date: 05/03: s/p cardiac arrest, remains unresponsive, not on any sedation. +gag/cough and corneal reflex, pending CT head/brain. Patient H&H also dropped this am, 1unit of PRBCs ordered. Hyperkalemia was treated per protoocl, repeat BMP at 1600. BR was initiated for severe constipation, TF was initiated. 05/04: Patient is awake this am, following simple commands. Off dopamine gtt and Transvenous pacer at a back rate of 60. COVID PCR +, patient is on IV Abx and IV steroids. Awaiting cardio recommendation, if no plan for PPM insertion, plan for PST for possible extubation. 05/05: On sedation this am due to increase agitation. Patient failed SAT this am. 1unit ordered for low H&H this am with worsening in thrombocytopenia, AC held and stool occult ordered. Transvenous pacer still present at a back up rate of 50, patient SR on the monitor this am, HR in the 60s. Plan for possible TVP removal tomorrow by Cardio. 05/06: Patient tried on PSV today, hydralazine p.o. for hypertension (initial DCCV but discontinued due to transvenous pacemaker in place), HIT panel ordered. 05/07: Transvenous catheter removed by cardiology, placed on SBT. Head still pending. Repeat thyroid studies show slight improvement. No acute events reported overnight. Home Norvasc changed to hydralazine today 05/08: Added Seroquel per CCM, systemic steroids started for laryngeal edema and patient started on IV Lasix for 3 days. Drop in H/H from 8.2/24.7-7.7/24 noted, will repeat CBC in the a.m. Thrombocytopenia has improved. Patient was extubated yesterday afternoon however she had to be reintubated late evening due to increased work of breathing. Given Dulcolax suppository today 05/09: Continue Seroquel, begin scopolamine for secretion control, CCM and vent changes and will continue Lasix for 1 more day. Given mag citrate Hospitalist Physical - Constitutional Vitals: Temp Pulse Resp BP Pulse Ox 98.4 F 86 22 135/72 96 05/09/21 11:45 05/09/21 15:01 05/09/21 04:00 05/09/21 15:01 05/09/21 15:01 General appearance: Present: no acute distress, other (Intubated and sedated) - EENT Eyes: Present: PERRL, EOM intact ENT: hearing intact, clear oral mucosa, dentition normal - Neck Neck: Present: normal ROM - Respiratory Respiratory effort: normal Respiratory: bilateral: diminished - Cardiovascular Rhythm: regular Heart Sounds: Present: S1 & S2. Absent: systolic murmur, diastolic murmur - Extremities Extremities: no ischemia, pulses intact, pulses symmetrical, No edema, normal temperature, normal color Peripheral Pulses: within normal limits - Abdominal General gastrointestinal: soft, non-tender, non-distended, normal bowel sounds - Integumentary Integumentary: Present: warm, dry - Psychiatric Psychiatric: cooperative - Neurologic Neurologic: CNII-XII intact, no focal deficits, moves all extremities - Allied Health Allied health notes reviewed: nursing, RT, social work HEART Score - HEART Score Troponin: Troponin T < 0.010 ng/mL (0.00-0.029) 05/02/21 05:16 Results - Labs CBC & Chem 7: 05/09/21 06:47 05/09/21 06:47 Labs: Laboratory Last Values WBC 6.7 K/mm3 (4.5-11.0) 05/09/21 06:47 RBC 2.39 M/mm3 (3.65-5.03) L 05/09/21 06:47 Hgb 7.3 gm/dl (10.1-14.3) L 05/09/21 06:47 Hct 22.2 % (30.3-42.9) L 05/09/21 06:47 MCV 93 fl (79-97) 05/09/21 06:47 MCH 31 pg (28-32) 05/09/21 06:47 MCHC 33 % (30-34) 05/09/21 06:47 RDW 17.7 % (13.2-15.2) H 05/09/21 06:47 Plt Count 109 K/mm3 (140-440) L 05/09/21 06:47 Lymph % (Auto) 10.4 % (13.4-35.0) L 05/04/21 09:41 [place] % (Auto) 4.9 % (0.0-7.3) 05/04/21 09:41 Eos % (Auto) 0.0 % (0.0-4.3) 05/04/21 09:41 Baso % (Auto) 0.0 % (0.0-1.8) 05/04/21 09:41 Lymph # (Auto) 0.6 K/mm3 (1.2-5.4) L 05/04/21 09:41 [place] # (Auto) 0.3 K/mm3 (0.0-0.8) 05/04/21 09:41 Eos # (Auto) 0.0 K/mm3 (0.0-0.4) 05/04/21 09:41 Baso # (Auto) 0.0 K/mm3 (0.0-0.1) 05/04/21 09:41 Add Manual Diff Complete 05/03/21 04:52 Total Counted 100 05/03/21 04:52 Seg Neutrophils % 84.7 % (40.0-70.0) H 05/04/21 09:41 Seg Neuts % (Manual) 86.0 % (40.0-70.0) H 05/03/21 04:52 Band Neutrophils % 8.0 % 05/03/21 04:52 Lymphocytes % (Manual) 3.0 % (13.4-35.0) L 05/03/21 04:52 Reactive Lymphs % (Man) 0 % 05/03/21 04:52 Monocytes % (Manual) 2.0 % (0.0-7.3) 05/03/21 04:52 Eosinophils % (Manual) 1.0 % (0.0-4.3) 05/03/21 04:52 Basophils % (Manual) 0 % (0.0-1.8) 05/03/21 04:52 Metamyelocytes % 0 % 05/03/21 04:52 Myelocytes % 0 % 05/03/21 04:52 Promyelocytes % 0 % 05/03/21 04:52 Blast Cells % 0 % 05/03/21 04:52 Nucleated RBC % Not Reportable 05/03/21 04:52 Seg Neutrophils # 4.6 K/mm3 (1.8-7.7) 05/04/21 09:41 Seg Neutrophils # Man 3.9 K/mm3 (1.8-7.7) 05/03/21 04:52 Band Neutrophils # 0.4 K/mm3 05/03/21 04:52 Lymphocytes # (Manual) 0.1 K/mm3 (1.2-5.4) L 05/03/21 04:52 Abs React Lymphs (Man) 0.0 K/mm3 05/03/21 04:52 Monocytes # (Manual) 0.1 K/mm3 (0.0-0.8) 05/03/21 04:52 Eosinophils # (Manual) 0.0 K/mm3 (0.0-0.4) 05/03/21 04:52 Basophils # (Manual) 0.0 K/mm3 (0.0-0.1) 05/03/21 04:52 Metamyelocytes # 0.0 K/mm3 05/03/21 04:52 Myelocytes # 0.0 K/mm3 05/03/21 04:52 Promyelocytes # 0.0 K/mm3 05/03/21 04:52 Blast Cells # 0.0 K/mm3 05/03/21 04:52 WBC Morphology Not Reportable 05/03/21 04:52 Hypersegmented Neuts Not Reportable 05/03/21 04:52 Hyposegmented Neuts Not Reportable 05/03/21 04:52 Hypogranular Neuts Not Reportable 05/03/21 04:52 Smudge Cells Not Reportable 05/03/21 04:52 Toxic Granulation Not Reportable 05/03/21 04:52 Toxic Vacuolation Not Reportable 05/03/21 04:52 Dohle Bodies Not Reportable 05/03/21 04:52 Pelger-Huet Anomaly Not Reportable 05/03/21 04:52 Shanti Rods Not Reportable 05/03/21 04:52 Platelet Estimate Consistent w auto 05/03/21 04:52 Clumped Platelets Not Reportable 05/03/21 04:52 Plt Clumps, EDTA Not Reportable 05/03/21 04:52 Large Platelets Not Reportable 05/03/21 04:52 Giant Platelets Not Reportable 05/03/21 04:52 Platelet Satelliting Not Reportable 05/03/21 04:52 Plt Morphology Comment Not Reportable 05/03/21 04:52 RBC Morphology Not Reportable 05/03/21 04:52 Dimorphic RBCs Not Reportable 05/03/21 04:52 Polychromasia Not Reportable 05/03/21 04:52 Hypochromasia 2+ 05/03/21 04:52 Poikilocytosis Not Reportable 05/03/21 04:52 Anisocytosis 1+ 05/03/21 04:52 Microcytosis Not Reportable 05/03/21 04:52 Macrocytosis Few 05/03/21 04:52 Spherocytes Not Reportable 05/03/21 04:52 Pappenheimer Bodies Not Reportable 05/03/21 04:52 Sickle Cells Not Reportable 05/03/21 04:52 Target Cells Not Reportable 05/03/21 04:52 Tear Drop Cells Not Reportable 05/03/21 04:52 Ovalocytes Few 05/03/21 04:52 Helmet Cells Not Reportable 05/03/21 04:52 [place] Bodies Not Reportable 05/03/21 04:52 [place] Rings Not Reportable 05/03/21 04:52 Jossue Cells Not Reportable 05/03/21 04:52 Bite Cells Not Reportable 05/03/21 04:52 Crenated Cell Not Reportable 05/03/21 04:52 Elliptocytes Not Reportable 05/03/21 04:52 Acanthocytes (Spur) Not Reportable 05/03/21 04:52 Rouleaux Not Reportable 05/03/21 04:52 Hemoglobin C Crystals Not Reportable 05/03/21 04:52 Schistocytes Not Reportable 05/03/21 04:52 Malaria parasites Not Reportable 05/03/21 04:52 Anatoly Bodies Not Reportable 05/03/21 04:52 Hem Pathologist Commnt No 05/03/21 04:52 PT 15.1 Sec. (12.2-14.9) H 05/02/21 05:16 INR 1.07 (0.87-1.13) 05/02/21 05:16 APTT 41.7 Sec. (24.2-36.6) H 05/02/21 05:16 D-Dimer 2342.13 ng/mlDDU (0-234) H 05/09/21 06:47 ABG pH 7.487 pH Units (7.350-7.450) H 05/08/21 09:20 ABG pCO2 39.7 mm Hg 05/08/21 09:20 ABG pO2 70.0 mm Hg (80.0-90.0) L 05/08/21 09:20 ABG HCO3 29.3 mmol/L (20.0-26.0) H 05/08/21 09:20 ABG O2 Saturation 96.1 % (95.0-99.0) 05/08/21 09:20 ABG O2 Content 10.2 (0.0-44) 05/08/21 09:20 ABG Base Excess 5.5 mmol/L (-2.0-3.0) H 05/08/21 09:20 ABG Hemoglobin 7.6 gm/dl (12.0-16.0) L 05/08/21 09:20 ABG Carboxyhemoglobin 1.5 % (0.0-5.0) 05/08/21 09:20 ABG Methemoglobin 0.4 % (0.0-1.5) 05/08/21 09:20 Oxyhemoglobin 94.3 % (95.0-99.0) L 05/08/21 09:20 FiO2 50 % 05/08/21 09:20 Sodium 137 mmol/L (137-145) 05/09/21 06:47 Potassium 4.6 mmol/L (3.6-5.0) 05/09/21 06:47 Chloride 98.2 mmol/L (98-107) 05/09/21 06:47 Carbon Dioxide 28 mmol/L (22-30) 05/09/21 06:47 Anion Gap 15 mmol/L 05/09/21 06:47 BUN 44 mg/dL (7-17) H 05/09/21 06:47 Creatinine 1.3 mg/dL (0.6-1.2) H 05/09/21 06:47 Estimated GFR 47 ml/min 05/09/21 06:47 BUN/Creatinine Ratio 34 % 05/09/21 06:47 Glucose 122 mg/dL (65-100) H 05/09/21 06:47 POC Glucose 163 mg/dL (70-105) H 05/09/21 14:17 Lactic Acid 0.80 mmol/L (0.7-2.0) 05/02/21 05:53 Calcium 9.1 mg/dL (8.4-10.2) 05/09/21 06:47 Phosphorus 2.90 mg/dL (2.5-4.5) D 05/06/21 04:56 Magnesium 2.30 mg/dL (1.7-2.3) 05/06/21 04:56 Ferritin 500.1 ng/mL (10.0-200.0) H 05/09/21 06:47 Total Bilirubin 0.20 mg/dL (0.1-1.2) 05/09/21 13:16 Direct Bilirubin < 0.2 mg/dL (0-0.2) 05/09/21 13:16 Indirect Bilirubin 0.0 mg/dL 05/09/21 13:16 AST 28 units/L (5-40) 05/09/21 13:16 ALT 37 units/L (7-56) 05/09/21 13:16 Alkaline Phosphatase 100 units/L (35-129) 05/09/21 13:16 Lactate Dehydrogenase 212 units/L (91-180) H 05/09/21 06:47 Total Creatine Kinase 189 units/L (30-135) H 05/02/21 05:53 Troponin T < 0.010 ng/mL (0.00-0.029) 05/02/21 05:16 C-Reactive Protein 12.90 mg/dL (0.00-1.30) H 05/09/21 06:47 NT-Pro-B Natriuret Pep 341.7 pg/mL (0-900) 05/02/21 05:17 Total Protein 8.3 g/dL (6.3-8.2) H 05/09/21 13:16 Albumin 2.6 g/dL (3.9-5) L 05/09/21 13:16 Albumin/Globulin Ratio 0.5 % 05/09/21 13:16 Triglycerides 62 mg/dL (2-149) 05/07/21 04:34 Procalcitonin 0.74 ng/mL (<0.15) 05/03/21 04:52 TSH 9.910 mlU/mL (0.270-4.200) H 05/07/21 04:34 Free T4 0.61 ng/dL (0.76-1.46) L 05/07/21 04:34 Coronavirus (PCR) Positive (Negative) A 05/03/21 Unknown Blood Type O POSITIVE 05/03/21 14:13 Antibody Screen Negative 05/03/21 14:13 Crossmatch See Detail 05/03/21 14:13 Peoples/IV: Voiding Method Indwelling Catheter Active Medications - Current Medications Current Medications: Generic Name Dose Route Start Last Admin Trade Name Freq PRN Reason Stop Dose Admin Acetaminophen 650 mg 05/02/21 08:59 Acetaminophen 325 Mg/10.15 Ml Oral Liqd Unit Dose FEEDTUBE Q6H PRN Pain MILD(1-3)/Fever >100.5/[place] Albuterol/Ipratropium 1 ampul 05/04/21 08:00 05/09/21 08:37 Ipratropium/Albuterol Sulfate 3 Ml Ampul.Neb IH Not Given TIDRT JHON Budesonide 0.5 mg 05/02/21 10:00 05/09/21 08:37 Budesonide 0.5 Mg/2 Ml Nebu IH Not Given Q12HRT JHON Dexamethasone 6 mg 05/07/21 10:00 05/09/21 09:33 Dexamethasone 4 Mg/Ml Vial IV 05/12/21 10:01 6 mg Q24HR JHNO Administration Dextrose 0 ml 05/03/21 11:20 05/07/21 05:45 Dextrose 10% *Hypoglycemia IV 50 ml PRN PRN Administration Hypoglycemia Docusate Sodium 100 mg 05/03/21 12:00 05/09/21 09:32 Docusate Sodium 100 Mg/10 Ml Oral Liqd PO 100 mg BID JHON Administration Famotidine 10 mg 05/06/21 22:00 05/09/21 09:33 Famotidine 10 Mg Tab FEEDTUBE 10 mg BID JHON Administration Fentanyl 50 mcg 05/03/21 11:30 05/04/21 18:18 Fentanyl 100 Mcg/2 Ml Inj IV 50 mcg Q10MIN PRN Administration ANALGESIA Furosemide 20 mg 05/08/21 14:00 05/09/21 09:33 Furosemide 20 Mg/2 Ml Inj IV 05/10/21 10:01 20 mg QDAY JHON Administration Hydralazine HCl 25 mg 05/06/21 22:00 05/09/21 14:51 Hydralazine 25 Mg Tab PO 25 mg Q8HR JHON Administration Hydralazine HCl 10 mg 05/07/21 19:25 05/07/21 19:45 Hydralazine 20 Mg/1 Ml Inj IV 10 mg Q4HR PRN Administration Hypertension Hydrophilic Ointment 1 applic 05/07/21 20:35 Lip Therapy Vaseline TP Q2HR PRN Dry Lips NORepinephrine/NS 8 MG-250 ML 8 mg in 250 mls @ 3.75 mls/hr 05/02/21 10:00 Norepinephrine/Ns 8 Mg-250 Ml (Double Conc) IV TITRATE JHON Protocol 2 MCG/MIN Fentanyl Citrate 2,000 mcg in 100 mls @ 2.397 mls/hr 05/03/21 12:00 05/09/21 13:06 Fentanyl Drip Premix IV 2 mcg/kg/hr TITR JHON 4.794 mls/hr Titration Protocol 1 MCG/KG/HR Propofol 1,000 mg in 100 mls @ 1.438 mls/hr 05/04/21 22:00 05/08/21 06:17 Diprivan 10 Mg/Ml IV 0 mcg/kg/min TITR JHON 0 mls/hr Titration Protocol 5 MCG/KG/MIN Insulin Human Lispro 0 unit 05/09/21 00:00 05/09/21 11:54 Insulin Lispro 100 Unit/Ml SUB-Q Not Given Q6HR [facility] Protocol Levothyroxine Sodium 25 mcg 05/02/21 06:00 05/09/21 05:14 Levothyroxine 100 Mcg Inj IV 25 mcg DAILY@0600 JHON Administration Multi-Ingred Cream/Lotion/Oil/Oint 1 applic 05/07/21 20:35 Mineral Oil/Petrolatum, White Ophth Oint 3.5 Gm OU Q4HR PRN Dry Eye(s) Ondansetron HCl 4 mg 05/02/21 08:59 Ondansetron 4 Mg/2 Ml Inj IV Q8H PRN Nausea And Vomiting Polyethylene Glycol 17 gm 05/03/21 12:00 05/09/21 09:33 Polyethylene Glycol 3350 17 Gm Powder PO 17 gm QDAY JHON Administration Quetiapine Fumarate 100 mg 05/08/21 14:00 05/09/21 09:33 Quetiapine 100 Mg Tab PO 100 mg BID JHON Administration Scopolamine 1 each 05/09/21 14:00 05/09/21 14:51 Scopolamine Transdermal Patch 72 Hr TD 1 each Q3D JHON Administration Senna/Docusate Sodium 1 tab 05/07/21 22:00 05/09/21 09:32 Sennosides/Docusate Sodium 8.6/50 Mg Tab FEEDTUBE 1 tab BID JHON Administration Sodium Chloride 10 ml 05/02/21 10:00 05/09/21 10:34 Sodium Chloride 0.9% 10 Ml Flush Syringe IV Not Given BID JHON Sodium Chloride 10 ml 05/02/21 08:59 Sodium Chloride 0.9% 10 Ml Flush Syringe IV PRN PRN LINE FLUSH Sodium Chloride 10 ml 05/06/21 09:58 05/08/21 21:30 Sodium Chloride 0.9% 50 Ml Ivpb IV 10 ml PRN PRN Administration FLUSH Nutrition/Malnutrition Assess - Dietary Evaluation Nutrition/Malnutrition Findings: Nutrition Notes Start: 05/03/21 14:27 Freq: Status: Active Protocol: Document 05/08/21 09:54 NATHALIE (Rec: 05/08/21 10:21 NATHALIE [id number]) Nutrition Notes Initial or Follow up Reassessment Current Diagnosis Hypertension,Respiratory Failure Other Pertinent Diagnosis COVID-19, Pneumonia, Bradycardia/PEA arrest, Constipation, Transaminitis, M Current Diet TF-Osmolite 1.5 Nando @ 40 ml/hr (since L 05/08). Labs/Tests 05/07: BUN 25. Pertinent Medications 05/08: Levothyroxine, others nutritionally unremarkable. Height 5 ft 6 in Weight 47.94 kg [place] Body Weight (kg) 59.09 BMI 17.0 Weight change and time frame No body weight changed in 2 days reported. Weight Status Underweight Subjective/Other Information RD consult for write/manage TF . Pt was extubated 05/07, and reintubated later, due to respiratory distress. TF prescription resumed. Percent of energy/protein needs met: Prescribed Osmolite 1.5 Nando @ 40 ml/hr provides for energy/ protein needs (1440 Kcal/60 g) during LOS, 100% Kcal; 100%AA . Burn Absent Trauma Absent GI Symptoms Constipation Food Allergy No Skin Integrity/Comment No skin breakdown reported Current % PO Other Minimum of two criteria No #1 Nutrition Diagnosis Inadequate oral intake Diagnosis Progress(for reassessment Continues documentation) Is patient on ventilator? Yes Is Patient Ambulatory and/or Out of Bed No REE-([facility]-confined to bed) 1119.252 Kcal/Kg value to use for calculation 30 Approximate Energy Requirements Using 1438 kcal/Kg Calculation Used for Recommendations 70-80% of EEN Additional Notes 15-20 Kcal/Kg ABW. Protein: 1.2-2 g/Kg; 58-96 g/ day. Fluids: 1 ml/Kcal, or as per MD. Nutrition Intervention Nutrition Support: Resume Osmolite 1.5 Nando @ 40 ml/hr. Flush: 120 ml water Q 4 hr, or as per MD. Kcal 1,440 Protein (gm) 60 Carbohydrates (gm) 195 Fat (gm) 47 Fluid (mL) 732 Fiber (gm) 0 % RDI: 100% Kcal; 100%AA. Goal #1 Provide at least 75% of energy /protein needs through Enteral Feeding during LOS. Goal #2 Maintain body weight within +/ -3% of admission body weight during LOS. Follow-Up By: 05/13/21 Additional Comments Continue monitoring TF tolerance and BM.
[2021-05-09 17:27] LABS: ABG Base Excess 7.2 mmol/L (-2.0-3.0); ABG HCO3 31.5 mmol/L (20.0-26.0); ABG Methemoglobin 0.2 % (0.0-1.5); ABG Oxygen Saturation 99.3 % (95.0-99.0); ABG PCO2 44.6 mm Hg; ABG PH 7.467 pH Units (7.350-7.450); ABG PO2 58.7 mm Hg (80.0-90.0)
[2021-05-09] MEDS: hydrALAZINE 20 MG/1 ML INJ IV PRN ×2 (18:11→23:10)
[2021-05-09] MEDS: fentaNYL DRIP Premix 2,000 MCG/100 ML BAG IV SCH (20:00)
[2021-05-10] MEDS: INSULIN LISPRO 100 UNIT/ML SUB-Q SCH ×5 (00:23→23:07)
--- NOTE | 2021-05-10 04:03 | XRay Report ---
CHEST 1 VIEW 05/10/2021 2:35 AM INDICATION / CLINICAL INFORMATION: follow up respiratory failure. COMPARISON: 05/09/2021 FINDINGS: SUPPORT DEVICES: Stable, satisfactory device positioning. HEART / MEDIASTINUM: No significant abnormality. LUNGS / PLEURA: Diffuse opacities in bilateral lungs No pneumothorax. Signer Name: Wyatt Morillo MD Signed: 05/10/2021 3:59 AM Workstation Name: [email or web address]
[2021-05-10 05:21] LABS: Hemoglobin 7.9 gm/dl (10.1-14.3); Mean Corpuscular HGB Conc 33 % (30-34); Mean Corpuscular Volume 92 fl (79-97); Platelet Count 159 K/mm3 (140-440); Red Blood Count 2.59 M/mm3 (3.65-5.03); Red Cell Distribution Width 17.7 % (13.2-15.2)
[2021-05-10 05:40] LABS: BUN/Creatinine Ratio 47; Blood Urea Nitrogen 47 mg/dL (7-17); Calcium 9.4 mg/dL (8.4-10.2); Hemolysis Index 5
[2021-05-10] MEDS: LEVOTHYROXINE 100 MCG INJ IV SCH (06:17)
[2021-05-10] MEDS: hydrALAZINE 25 MG TAB PO SCH ×3 (06:17→21:05)
[2021-05-10] MEDS: IPRATROPIUM/ALBUTEROL SULFATE 3 ML AMPUL.NEB IH SCH ×5 (09:10→20:52)
[2021-05-10] MEDS: BUDESONIDE 0.5 MG/2 ML NEBU IH SCH ×3 (09:10→21:02)
[2021-05-10] MEDS: POLYETHYLENE GLYCOL 3350 17 GM POWDER PO SCH (09:52)
[2021-05-10] MEDS: FAMOTIDINE 10 MG TAB FEEDTUBE SCH ×2 (09:52→21:06)
[2021-05-10] MEDS: SENNOSIDES/DOCUSATE SODIUM 8.6/50 MG TAB FEEDTUBE SCH ×2 (09:53→21:06)
[2021-05-10] MEDS: dexAMETHasone 4 MG/ML VIAL IV SCH (09:53)
[2021-05-10] MEDS: DOCUSATE SODIUM 100 MG/10 ML ORAL LIQD PO SCH ×2 (09:53→21:06)
[2021-05-10] MEDS: QUEtiapine 100 MG TAB PO SCH ×3 (09:53→21:06)
[2021-05-10] MEDS: FUROSEMIDE 20 MG/2 ML INJ IV SCH (10:13)
--- NOTE | 2021-05-10 10:28 | Electrocardiograph Report ---
[facility] Test Date: 2021-05-10 Test Time: 07:19:01 Pat Name: CARYL TOWNSEND Department: Room: A263 1 Gender: F Calliope Player: SAULO : 1930 Requested By: AR VICK Order Number: [id number] Reading MD: Garfield Dalton Measurements Intervals [place] Rate: 79 P: 50 NM: 183 QRS: -63 QRSD: 84 T: 86 QT: 337 QTc: 376 Interpretive Statements Sinus rhythm Atrial premature complexes Left anterior fascicular block nonspecific st-t Compared to ECG 05/03/2021 13:02:56 Electronically Signed On 05-10-2021 10:27:53 EST by Garfield Dalton
--- NOTE | 2021-05-10 11:30 | Progress Note ---
Assessment and Plan 89-year-old female with a past medical history of hyper tension presenting to our facility with altered mental status, decreased responsiveness, bradycardia brought to the ED who 1 and then went to PEA arrest. ACLS protocol initiated with ROSC achieved. Patient taken to [facility] for temporary PPM Acute Encephalopathy Acute Respiratory Failure COVID-19 Infection Symptomatic Bradycardia (TVP removed) S/p PEA Arrest S/p Cardiogenic Shock Moderate MR MICHEAL (resolved) Hyponatremia Hyperkalemia (resolved) Anemia Thrombocytopenia Elevated LFTs HTN Euthyroid Sick Syndrome Echo 05/02/2021-EF 65 to 70%. Severe concentric LVH. Mild diastolic dysfunction is present impaired relaxation pattern. Moderate mitral regurgitation. Right ventricle is dilated. Right ventricular systolic function is normal device lead is present in right ventricle. Right atrium is dilated. No pericardial effusion Plan: Patient heart rate trending 90s Continue present management Agree with hydralazine for hypertension Will see as needed over weekened Patient seen in conjunction with Dr. Dalton who agrees with this plan of care - Patient Problems (1) Symptomatic bradycardia Current Visit: Yes Status: Acute Subjective Date of service: 05/10/21 Principal diagnosis: Symptomatic bradycardia; AHRF; Cardiogenic shock; Thrombocytopenia; AMS Interval history: At time of exam patient remains intubated and sedated Patient was trending sinus 80-90s with PACs Objective Vital Signs Temp Pulse Pulse Pulse Resp Resp BP 05/10/21 10:01 68 162/67 05/10/21 09:31 84 169/65 05/10/21 09:10 91 H 20 05/10/21 09:01 81 160/79 05/10/21 09:00 91 H 160/79 05/10/21 08:31 85 186/75 05/10/21 08:01 83 167/70 05/10/21 08:00 98.6 F 05/10/21 07:31 102 H 168/76 05/10/21 07:00 96 H 170/116 05/10/21 06:31 81 171/70 05/10/21 06:17 87 165/77 05/10/21 06:01 95 H 165/77 05/10/21 05:31 103 H 166/73 05/10/21 05:01 89 166/73 05/10/21 04:50 89 0 L 170/80 05/10/21 04:31 91 H 185/78 05/10/21 04:01 80 185/78 05/10/21 04:00 97.5 F L 05/10/21 03:53 87 05/10/21 03:44 87 14 05/10/21 03:31 77 164/61 05/10/21 03:01 83 159/71 05/10/21 02:30 65 117/51 05/10/21 02:01 78 126/63 05/10/21 01:31 97 H 164/100 05/10/21 01:01 97 H 156/76 05/10/21 00:40 102 H 0 L 149/67 05/10/21 00:31 83 156/76 05/10/21 00:01 89 149/67 05/10/21 00:00 89 89 19 05/09/21 23:31 90 162/79 05/09/21 23:17 82 188/81 05/09/21 23:10 81 188/81 05/09/21 23:01 88 188/81 05/09/21 22:31 89 152/126 05/09/21 22:01 86 152/126 05/09/21 21:58 95 H 174/85 05/09/21 21:31 109 H 174/85 05/09/21 21:01 87 172/73 05/09/21 20:45 85 110 H 20 159/66 05/09/21 20:35 87 172/73 05/09/21 20:31 84 159/66 05/09/21 20:15 90 188/74 05/09/21 20:01 100 H 188/74 05/09/21 20:00 98.3 F 100 H 100 H 17 05/09/21 19:45 86 169/82 05/09/21 19:31 92 H 169/82 05/09/21 19:15 99 H 173/78 05/09/21 19:01 112 H 173/78 05/09/21 18:45 93 H 165/74 05/09/21 18:31 87 165/74 05/09/21 18:15 88 188/81 05/09/21 18:11 78 185/156 05/09/21 18:01 96 H 185/156 05/09/21 17:45 95 H 173/85 05/09/21 17:31 86 173/85 05/09/21 17:15 92 H 166/58 05/09/21 17:01 82 166/58 05/09/21 16:45 84 152/63 05/09/21 16:31 86 152/63 05/09/21 16:15 91 H 157/66 05/09/21 16:01 85 157/66 05/09/21 16:00 89 78 173/85 05/09/21 15:45 81 139/53 05/09/21 15:31 89 139/53 05/09/21 15:15 91 H 135/72 05/09/21 15:01 86 135/72 05/09/21 15:00 98.4 F 05/09/21 14:51 95 H 138/62 05/09/21 14:45 84 138/62 05/09/21 14:31 95 H 138/62 05/09/21 14:15 85 158/80 05/09/21 14:01 90 158/80 05/09/21 13:45 85 163/48 05/09/21 13:31 82 163/48 05/09/21 13:15 82 155/102 05/09/21 13:01 101 H 154/49 05/09/21 12:45 88 154/49 05/09/21 12:31 85 154/49 05/09/21 12:15 80 151/50 05/09/21 12:01 82 151/50 05/09/21 12:00 86 82 131/69 05/09/21 11:45 98.4 F 86 165/50 05/09/21 11:31 88 165/50 Pulse Ox 05/10/21 10:01 100 05/10/21 09:31 94 05/10/21 09:10 05/10/21 09:01 95 05/10/21 09:00 96 05/10/21 08:31 96 05/10/21 08:01 96 05/10/21 08:00 05/10/21 07:31 96 05/10/21 07:00 98 05/10/21 06:31 96 05/10/21 06:17 05/10/21 06:01 96 05/10/21 05:31 94 05/10/21 05:01 95 05/10/21 04:50 97 05/10/21 04:31 96 05/10/21 04:01 97 05/10/21 04:00 05/10/21 03:53 05/10/21 03:44 97 05/10/21 03:31 97 05/10/21 03:01 95 05/10/21 02:30 96 05/10/21 02:01 95 05/10/21 01:31 94 05/10/21 01:01 94 05/10/21 00:40 98 05/10/21 00:31 94 05/10/21 00:01 96 05/10/21 00:00 96 05/09/21 23:31 96 05/09/21 23:17 96 05/09/21 23:10 05/09/21 23:01 95 05/09/21 22:31 95 05/09/21 22:01 95 05/09/21 21:58 05/09/21 21:31 95 05/09/21 21:01 95 05/09/21 20:45 95 05/09/21 20:35 97 05/09/21 20:31 95 05/09/21 20:15 94 05/09/21 20:01 93 05/09/21 20:00 99 05/09/21 19:45 05/09/21 19:31 05/09/21 19:15 05/09/21 19:01 97 05/09/21 18:45 99 05/09/21 18:31 99 05/09/21 18:15 98 05/09/21 18:11 05/09/21 18:01 99 05/09/21 17:45 100 05/09/21 17:31 99 05/09/21 17:15 97 05/09/21 17:01 97 05/09/21 16:45 96 05/09/21 16:31 97 05/09/21 16:15 97 05/09/21 16:01 97 05/09/21 16:00 99 05/09/21 15:45 96 05/09/21 15:31 96 05/09/21 15:15 96 05/09/21 15:01 96 05/09/21 15:00 05/09/21 14:51 05/09/21 14:45 97 05/09/21 14:31 96 05/09/21 14:15 97 05/09/21 14:01 97 05/09/21 13:45 97 05/09/21 13:31 97 05/09/21 13:15 97 05/09/21 13:01 99 05/09/21 12:45 96 05/09/21 12:31 97 05/09/21 12:15 97 05/09/21 12:01 97 05/09/21 12:00 97 05/09/21 11:45 97 05/09/21 11:31 96 - Physical Examination General: Other (intubated and sedated) HEENT: Positive: Mucus Membranes Moist Neck: Positive: neck supple, trachea midline Cardiac: Positive: Reg Rate and Rhythm Lungs: Positive: Ventilated Respirations Neuro: Positive: Other (Pt intubated not following commands) Abdomen: Positive: Soft, Distended Skin: Negative: Rash Extremities: Present: Cool. Absent: edema - Labs and Meds Cardiac Enzymes 05/09/21 05/09/21 Range/Units 06:47 13:16 AST 28 (5-40) units/L Lactate Dehydrogenase 212 H (91-180) units/L CBC 05/10/21 Range/Units 04:51 WBC 9.1 (4.5-11.0) K/mm3 RBC 2.59 L (3.65-5.03) M/mm3 Hgb 7.9 L (10.1-14.3) gm/dl Hct 24.0 L (30.3-42.9) % Plt Count 159 (140-440) K/mm3 Comprehensive Metabolic Panel 05/09/21 05/10/21 Range/Units 13:16 04:51 Sodium 139 (137-145) mmol/L Potassium 5.0 (3.6-5.0) mmol/L Chloride 98.8 (98-107) mmol/L Carbon Dioxide 29 (22-30) mmol/L BUN 47 H (7-17) mg/dL Creatinine 1.0 (0.6-1.2) mg/dL Glucose 125 H (65-100) mg/dL Calcium 9.4 (8.4-10.2) mg/dL Direct Bilirubin < 0.2 (0-0.2) mg/dL Indirect Bilirubin 0.0 mg/dL AST 28 (5-40) units/L ALT 37 (7-56) units/L Alkaline Phosphatase 100 (35-129) units/L Total Protein 8.3 H (6.3-8.2) g/dL Albumin 2.6 L (3.9-5) g/dL - Imaging and Cardiology EKG: report reviewed, image reviewed Echo: report reviewed - Telemetry EKG Rhythm: Sinus Rhythm - EKG Sinus rhythms and dysrhythmias: sinus rhythm Supraventricular dysrhythmia: atrial premature complexe AV and intraventricular conduction: 1 AV block Repolarization changes or abnormalities: nonspecific abnormality, ST segment, and/or T wave - Allied health notes Allied health notes reviewed: nursing
[2021-05-10] MEDS: fentaNYL DRIP Premix 2,000 MCG/100 ML BAG IV SCH (13:48)
--- NOTE | 2021-05-10 13:53 | Progress Note ---
Assessment and Plan Symptomatic bradycardia with subsequent PEA arrest status post ROSC Acute hypoxic respiratory failure Cardiogenic shock Hypothyroidism Thrombocytopenia Acute metabolic encephalopathy Leukopenia Anemia Transaminitis Hypothermia Hyperkalemia - add Robinul and Mucomyst for better secretion control - suspect persistent element of diastolic dysfunction with pulmonary edema; will continue Lasix X 2 more days and target megative fluid balance - serum creatinine improved - increase Seroquel dose by 25 mg each re: agitated delirium - continue SBT; tentative trial of extubation next 24-48 hours once pulmonary edema better - continue care as below otherwise; - wean vasopressors for target MAP > 65 mmHg - continue Daily SAT and SBT assessment as tolerated - continue bronchodilators with pulmonary hygiene per RT - continue to wean supplemental oxygen for target O2 sat's > 90% acutely - VAP bundle addressed - continue lung protective strategies - continue bronchodilators with pulmonary hygiene per RT - wean per pulmonary driven protocols otherwise - sedation prn for target RASS 0 to -1 - AB's per ID recommendations - continue accuchecks with glycemic control per SSI (While critically ill target blood glucose of 140-180 mg/dL; avoid hypoglycemia) - avoid nephrotoxins, renally dose all medications - continue to avoid benzodiazepine's, reduce the possibility of delirium - prn analgesia per CPOT score - Maintenance of sleep-wake cycle, avoid delirium - continue enteral nutritional support at goal rate as tolerated - G.I. & VTE prophylaxis (VTE prophylaxis with SCDs; She has required supportive blood transfusions and has thrombocytopenia) - PT/OT/ROM exercises - mobility protocols for pressure ulcer prophylaxis - Monitor hemodynamics closely - continue other care per attending / other consultants - discharge planning ongoing concurrently COVID SPECIFIC INTERVENTIONS - Remdesivir as per ID/Pulmonary developed protocols - continue systemic steroids for severe COVID-19 infection empirically (Dexamethasone) - follow repeat COVID tests results - zinc and vitamin C supplementation - Monitor inflammatory markers per facility protocol - ferritin, Ddimer, CRP - therapeutic anticoagulation per system Protocol based on d-dimer and clinical considerations - Continue contact and airborne isolation .... Re-evaluate in am & prn CONDITION: CRITICAL PROGNOSIS: GUARDED CODE STATUS: FULL CODE The high probability of a clinically significant, sudden or life-threatening deterioration of the [respiratory, cardiovascular & neurologic] system(s) requi red my full and direct attention, intervention and personal management. The aggregate critical care time was [32] minutes without overlap. Time includes spent on; [x] Data Review and interpretation [x] Patient assessment and monitoring of vital signs [x] Documentation [x] Medication orders and management Subjective Date of service: 05/10/21 Principal diagnosis: Symptomatic bradycardia; AHRF; Cardiogenic shock; Thrombocytopenia; AMS Interval history: Patient is seen today for: Symptomatic bradycardia; Acute hypoxic respiratory failure; Cardiogenic shock; Hypothyroidism; Thrombocytopenia; AMS; Hyperkalemia Seen and examined at bedside; 24hour events reviewed; nursing and respiratory care staff consulted; no adverse overnight events reported to me; resting in bed; remains on MVS; on SBT via PSV but with intermittent agitation; secretions still moderate at times; no emesis or overt aspiration Objective Vital Signs - 12hr 05/10/21 05/10/21 05/10/21 02:01 02:30 03:01 Temperature Pulse Rate 78 65 83 Pulse Rate [ Anterior Bilateral Throughout] Pulse Rate [ From Monitor] Respiratory Rate Respiratory Rate [Anterior Bilateral Throughout] Blood Pressure 126/63 117/51 159/71 O2 Sat by Pulse 95 96 95 Oximetry 05/10/21 05/10/21 05/10/21 03:31 03:44 03:53 Temperature Pulse Rate 77 87 Pulse Rate [ Anterior Bilateral Throughout] Pulse Rate [ 87 From Monitor] Respiratory 14 Rate Respiratory Rate [Anterior Bilateral Throughout] Blood Pressure 164/61 O2 Sat by Pulse 97 97 Oximetry 05/10/21 05/10/21 05/10/21 04:00 04:01 04:31 Temperature 97.5 F L Pulse Rate 80 91 H Pulse Rate [ Anterior Bilateral Throughout] Pulse Rate [ From Monitor] Respiratory Rate Respiratory Rate [Anterior Bilateral Throughout] Blood Pressure 185/78 185/78 O2 Sat by Pulse 97 96 Oximetry 05/10/21 05/10/21 05/10/21 04:50 05:01 05:31 Temperature Pulse Rate 89 89 103 H Pulse Rate [ Anterior Bilateral Throughout] Pulse Rate [ From Monitor] Respiratory 0 L Rate Respiratory Rate [Anterior Bilateral Throughout] Blood Pressure 170/80 166/73 166/73 O2 Sat by Pulse 97 95 94 Oximetry 05/10/21 05/10/21 05/10/21 06:01 06:17 06:31 Temperature Pulse Rate 95 H 87 81 Pulse Rate [ Anterior Bilateral Throughout] Pulse Rate [ From Monitor] Respiratory Rate Respiratory Rate [Anterior Bilateral Throughout] Blood Pressure 165/77 165/77 171/70 O2 Sat by Pulse 96 96 Oximetry 05/10/21 05/10/21 05/10/21 07:00 07:31 08:00 Temperature 98.6 F Pulse Rate 96 H 102 H Pulse Rate [ Anterior Bilateral Throughout] Pulse Rate [ From Monitor] Respiratory Rate Respiratory Rate [Anterior Bilateral Throughout] Blood Pressure 170/116 168/76 O2 Sat by Pulse 98 96 Oximetry 05/10/21 05/10/21 05/10/21 08:01 08:31 09:00 Temperature Pulse Rate 83 85 91 H Pulse Rate [ Anterior Bilateral Throughout] Pulse Rate [ From Monitor] Respiratory Rate Respiratory Rate [Anterior Bilateral Throughout] Blood Pressure 167/70 186/75 160/79 O2 Sat by Pulse 96 96 96 Oximetry 05/10/21 05/10/21 05/10/21 09:01 09:10 09:31 Temperature Pulse Rate 81 84 Pulse Rate [ 91 H Anterior Bilateral Throughout] Pulse Rate [ From Monitor] Respiratory Rate Respiratory 20 Rate [Anterior Bilateral Throughout] Blood Pressure 160/79 169/65 O2 Sat by Pulse 95 94 Oximetry 05/10/21 05/10/21 05/10/21 10:01 10:31 11:01 Temperature Pulse Rate 68 80 77 Pulse Rate [ Anterior Bilateral Throughout] Pulse Rate [ From Monitor] Respiratory Rate Respiratory Rate [Anterior Bilateral Throughout] Blood Pressure 162/67 146/68 159/51 O2 Sat by Pulse 100 98 99 Oximetry 05/10/21 05/10/21 05/10/21 11:31 12:00 12:01 Temperature 98.6 F Pulse Rate 76 75 Pulse Rate [ Anterior Bilateral Throughout] Pulse Rate [ From Monitor] Respiratory Rate Respiratory Rate [Anterior Bilateral Throughout] Blood Pressure 159/51 159/51 O2 Sat by Pulse 96 100 Oximetry 05/10/21 05/10/21 05/10/21 12:31 13:01 13:08 Temperature Pulse Rate 80 84 80 Pulse Rate [ Anterior Bilateral Throughout] Pulse Rate [ From Monitor] Respiratory 19 Rate Respiratory Rate [Anterior Bilateral Throughout] Blood Pressure 159/51 159/51 159/51 O2 Sat by Pulse 99 100 99 Oximetry 05/10/21 13:49 Temperature Pulse Rate 88 Pulse Rate [ Anterior Bilateral Throughout] Pulse Rate [ From Monitor] Respiratory Rate Respiratory Rate [Anterior Bilateral Throughout] Blood Pressure 166/74 O2 Sat by Pulse Oximetry Constitutional: appears uncomfortable, other (elderly female with mildly increased respiratory effort at rest on MVS) Eyes: non-icteric ENT: oropharynx moist, other (ETT 24 cm HIMANSHU) Neck: supple, no lymphadenopathy, no JVD Effort: mildly labored Ascultation: Bilateral: diminished breath sounds, rales (bilateral) Percussion: Bilateral: not dull Cardiovascular: regular rate and rhythm, other (S1,S2) Gastrointestinal: normoactive bowel sounds, soft, non-distended, other (distended suprapubic area- possibly bladder) Integumentary: normal Extremities: no cyanosis, no edema, pulses normal, no ischemia or petechiae Neurologic: non-focal exam (grossly), pupils equal and round, unable to assess, other (sedated) Psychiatric: anxious, other (delirious) CBC and BMP: 05/10/21 04:51 05/10/21 04:51 ABG, PT/INR, D-dimer: ABG ABG pH 7.467 pH Units (7.350-7.450) H 05/09/21 15:20 ABG pCO2 44.6 mm Hg 05/09/21 15:20 ABG pO2 58.7 mm Hg (80.0-90.0) L 05/09/21 15:20 ABG O2 Saturation 99.3 % (95.0-99.0) H 05/09/21 15:20 PT/INR, D-dimer PT 15.1 Sec. (12.2-14.9) H 05/02/21 05:16 INR 1.07 (0.87-1.13) 05/02/21 05:16 D-Dimer 2342.13 ng/mlDDU (0-234) H 05/09/21 06:47 Abnormal lab findings: Abnormal Labs 05/02/21 05/02/21 05/02/21 05:16 05:16 05:16 WBC 2.9 L RBC 2.36 L Hgb 7.4 L Hct 22.2 L RDW 18.2 H Plt Count Lymph % (Auto) Lymph # (Auto) 0.5 L Seg Neutrophils % 76.5 H Seg Neuts % (Manual) Lymphocytes % (Manual) Lymphocytes # (Manual) PT 15.1 H APTT 41.7 H D-Dimer ABG pH ABG pO2 ABG HCO3 ABG O2 Saturation ABG Base Excess ABG Hemoglobin Oxyhemoglobin Sodium 129 L Potassium 6.2 H* Chloride 97.0 L Carbon Dioxide BUN Creatinine Glucose POC Glucose Magnesium Ferritin AST ALT Lactate Dehydrogenase Total Creatine Kinase C-Reactive Protein Total Protein Albumin TSH Free T4 Coronavirus (PCR) Crossmatch 05/02/21 05/02/21 05/02/21 05:17 05:53 06:41 WBC RBC Hgb Hct RDW Plt Count Lymph % (Auto) Lymph # (Auto) Seg Neutrophils % Seg Neuts % (Manual) Lymphocytes % (Manual) Lymphocytes # (Manual) PT APTT D-Dimer ABG pH ABG pO2 ABG HCO3 ABG O2 Saturation ABG Base Excess ABG Hemoglobin Oxyhemoglobin Sodium Potassium Chloride Carbon Dioxide BUN Creatinine Glucose POC Glucose Magnesium Ferritin AST 144 H ALT 115 H Lactate Dehydrogenase Total Creatine Kinase 189 H C-Reactive Protein Total Protein 9.6 H Albumin 2.9 L TSH 10.350 H Free T4 0.61 L Coronavirus (PCR) Crossmatch 05/02/21 05/02/21 05/03/21 11:50 15:56 04:52 WBC RBC 2.20 L Hgb 6.8 L Hct 20.6 L RDW 18.4 H Plt Count Lymph % (Auto) Lymph # (Auto) Seg Neutrophils % Seg Neuts % (Manual) 86.0 H Lymphocytes % (Manual) 3.0 L Lymphocytes # (Manual) 0.1 L PT APTT D-Dimer ABG pH ABG pO2 352.4 H ABG HCO3 ABG O2 Saturation 99.5 H ABG Base Excess ABG Hemoglobin 6.9 L Oxyhemoglobin Sodium Potassium 5.8 H Chloride Carbon Dioxide BUN Creatinine Glucose POC Glucose Magnesium Ferritin AST ALT Lactate Dehydrogenase Total Creatine Kinase C-Reactive Protein Total Protein Albumin TSH Free T4 Coronavirus (PCR) Crossmatch 05/03/21 05/03/21 05/03/21 04:52 10:10 10:23 WBC RBC Hgb Hct RDW Plt Count Lymph % (Auto) Lymph # (Auto) Seg Neutrophils % Seg Neuts % (Manual) Lymphocytes % (Manual) Lymphocytes # (Manual) PT APTT D-Dimer ABG pH ABG pO2 177.2 H ABG HCO3 ABG O2 Saturation 99.1 H ABG Base Excess ABG Hemoglobin 7.1 L Oxyhemoglobin Sodium 129 L Potassium 6.2 H* Chloride 97.0 L Carbon Dioxide BUN 25 H Creatinine Glucose POC Glucose 106 H Magnesium Ferritin AST 152 H ALT 127 H Lactate Dehydrogenase Total Creatine Kinase C-Reactive Protein Total Protein 8.6 H Albumin 2.6 L TSH Free T4 Coronavirus (PCR) Crossmatch 05/03/21 05/03/21 05/03/21 13:11 14:13 16:49 WBC RBC Hgb Hct RDW Plt Count Lymph % (Auto) Lymph # (Auto) Seg Neutrophils % Seg Neuts % (Manual) Lymphocytes % (Manual) Lymphocytes # (Manual) PT APTT D-Dimer ABG pH ABG pO2 ABG HCO3 ABG O2 Saturation ABG Base Excess ABG Hemoglobin Oxyhemoglobin Sodium Potassium Chloride Carbon Dioxide BUN Creatinine Glucose POC Glucose 116 H 58 L Magnesium Ferritin AST ALT Lactate Dehydrogenase Total Creatine Kinase C-Reactive Protein Total Protein Albumin TSH Free T4 Coronavirus (PCR) Crossmatch See Detail 05/03/21 05/03/21 05/03/21 17:34 19:58 20:07 WBC RBC Hgb Hct RDW Plt Count Lymph % (Auto) Lymph # (Auto) Seg Neutrophils % Seg Neuts % (Manual) Lymphocytes % (Manual) Lymphocytes # (Manual) PT APTT D-Dimer ABG pH ABG pO2 ABG HCO3 ABG O2 Saturation ABG Base Excess ABG Hemoglobin Oxyhemoglobin Sodium 131 L Potassium 5.7 H Chloride 97.7 L Carbon Dioxide 21 L BUN 28 H Creatinine 1.4 H Glucose 130 H POC Glucose 123 H 122 H Magnesium Ferritin AST ALT Lactate Dehydrogenase Total Creatine Kinase C-Reactive Protein Total Protein Albumin TSH Free T4 Coronavirus (PCR) Crossmatch 05/03/21 05/03/21 05/04/21 Unknown 23:59 02:59 WBC RBC Hgb Hct RDW Plt Count Lymph % (Auto) Lymph # (Auto) Seg Neutrophils % Seg Neuts % (Manual) Lymphocytes % (Manual) Lymphocytes # (Manual) PT APTT D-Dimer ABG pH ABG pO2 ABG HCO3 ABG O2 Saturation ABG Base Excess ABG Hemoglobin Oxyhemoglobin Sodium Potassium Chloride Carbon Dioxide BUN Creatinine Glucose POC Glucose 117 H 142 H Magnesium Ferritin AST ALT Lactate Dehydrogenase Total Creatine Kinase C-Reactive Protein Total Protein Albumin TSH Free T4 Coronavirus (PCR) Positive A Crossmatch 05/04/21 05/04/21 05/04/21 03:15 09:41 09:41 WBC RBC 2.28 L Hgb 7.1 L Hct 21.4 L RDW 18.5 H Plt Count 97 L Lymph % (Auto) 10.4 L Lymph # (Auto) 0.6 L Seg Neutrophils % 84.7 H Seg Neuts % (Manual) Lymphocytes % (Manual) Lymphocytes # (Manual) PT APTT D-Dimer ABG pH ABG pO2 ABG HCO3 ABG O2 Saturation ABG Base Excess ABG Hemoglobin 6.9 L Oxyhemoglobin 94.9 L Sodium 132 L Potassium Chloride Carbon Dioxide 21 L BUN 33 H Creatinine 1.4 H Glucose 143 H POC Glucose Magnesium Ferritin AST ALT Lactate Dehydrogenase Total Creatine Kinase C-Reactive Protein Total Protein Albumin TSH Free T4 Coronavirus (PCR) Crossmatch 05/04/21 05/04/21 05/04/21 11:43 16:48 21:31 WBC RBC Hgb Hct RDW Plt Count Lymph % (Auto) Lymph # (Auto) Seg Neutrophils % Seg Neuts % (Manual) Lymphocytes % (Manual) Lymphocytes # (Manual) PT APTT D-Dimer ABG pH ABG pO2 ABG HCO3 ABG O2 Saturation ABG Base Excess ABG Hemoglobin Oxyhemoglobin Sodium Potassium Chloride Carbon Dioxide BUN Creatinine Glucose POC Glucose 125 H 129 H 124 H Magnesium Ferritin AST ALT Lactate Dehydrogenase Total Creatine Kinase C-Reactive Protein Total Protein Albumin TSH Free T4 Coronavirus (PCR) Crossmatch 05/05/21 05/05/21 05/05/21 01:32 02:30 04:35 WBC RBC Hgb Hct RDW Plt Count Lymph % (Auto) Lymph # (Auto) Seg Neutrophils % Seg Neuts % (Manual) Lymphocytes % (Manual) Lymphocytes # (Manual) PT APTT D-Dimer ABG pH ABG pO2 123.1 H ABG HCO3 ABG O2 Saturation ABG Base Excess ABG Hemoglobin 5.9 L Oxyhemoglobin Sodium Potassium Chloride Carbon Dioxide BUN Creatinine Glucose POC Glucose 128 H Magnesium Ferritin AST 54 H ALT 70 H Lactate Dehydrogenase Total Creatine Kinase C-Reactive Protein Total Protein 8.4 H Albumin 2.5 L TSH Free T4 Coronavirus (PCR) Crossmatch 05/05/21 05/05/21 05/05/21 04:35 04:35 06:11 WBC 4.4 L RBC 2.04 L Hgb 6.3 L Hct 19.1 L* RDW 18.3 H Plt Count 77 L Lymph % (Auto) Lymph # (Auto) Seg Neutrophils % Seg Neuts % (Manual) Lymphocytes % (Manual) Lymphocytes # (Manual) PT APTT D-Dimer ABG pH ABG pO2 ABG HCO3 ABG O2 Saturation ABG Base Excess ABG Hemoglobin Oxyhemoglobin Sodium 131 L Potassium Chloride Carbon Dioxide 21 L BUN 31 H Creatinine Glucose 158 H POC Glucose 165 H Magnesium 2.40 H Ferritin AST ALT Lactate Dehydrogenase Total Creatine Kinase C-Reactive Protein Total Protein Albumin TSH Free T4 Coronavirus (PCR) Crossmatch 05/05/21 05/05/21 05/05/21 07:20 17:01 23:25 WBC RBC Hgb Hct RDW Plt Count Lymph % (Auto) Lymph # (Auto) Seg Neutrophils % Seg Neuts % (Manual) Lymphocytes % (Manual) Lymphocytes # (Manual) PT APTT D-Dimer ABG pH ABG pO2 ABG HCO3 ABG O2 Saturation ABG Base Excess ABG Hemoglobin Oxyhemoglobin Sodium Potassium Chloride Carbon Dioxide BUN Creatinine Glucose POC Glucose 152 H 114 H 148 H Magnesium Ferritin AST ALT Lactate Dehydrogenase Total Creatine Kinase C-Reactive Protein Total Protein Albumin TSH Free T4 Coronavirus (PCR) Crossmatch 05/06/21 05/06/21 05/06/21 04:56 04:56 05:37 WBC RBC 2.54 L Hgb 7.7 L Hct 23.2 L RDW 18.1 H Plt Count 73 L Lymph % (Auto) Lymph # (Auto) Seg Neutrophils % Seg Neuts % (Manual) Lymphocytes % (Manual) Lymphocytes # (Manual) PT APTT D-Dimer ABG pH ABG pO2 ABG HCO3 ABG O2 Saturation ABG Base Excess ABG Hemoglobin Oxyhemoglobin Sodium 134 L Potassium 5.1 H Chloride Carbon Dioxide BUN 30 H Creatinine Glucose 133 H POC Glucose 120 H Magnesium Ferritin AST ALT Lactate Dehydrogenase Total Creatine Kinase C-Reactive Protein Total Protein Albumin TSH Free T4 Coronavirus (PCR) Crossmatch 05/06/21 05/06/21 05/07/21 14:14 15:40 04:34 WBC RBC 2.69 L Hgb 8.2 L Hct 24.7 L RDW 18.3 H Plt Count 80 L Lymph % (Auto) Lymph # (Auto) Seg Neutrophils % Seg Neuts % (Manual) Lymphocytes % (Manual) Lymphocytes # (Manual) PT APTT D-Dimer ABG pH ABG pO2 72.2 L ABG HCO3 28.0 H ABG O2 Saturation ABG Base Excess 3.6 H ABG Hemoglobin 5.6 L Oxyhemoglobin Sodium Potassium Chloride Carbon Dioxide BUN Creatinine Glucose POC Glucose Magnesium Ferritin AST ALT Lactate Dehydrogenase Total Creatine Kinase C-Reactive Protein 7.30 H Total Protein Albumin TSH Free T4 Coronavirus (PCR) Crossmatch 05/07/21 05/07/21 05/07/21 04:34 04:34 04:34 WBC RBC Hgb Hct RDW Plt Count Lymph % (Auto) Lymph # (Auto) Seg Neutrophils % Seg Neuts % (Manual) Lymphocytes % (Manual) Lymphocytes # (Manual) PT APTT D-Dimer 1661.00 H ABG pH ABG pO2 ABG HCO3 ABG O2 Saturation ABG Base Excess ABG Hemoglobin Oxyhemoglobin Sodium Potassium Chloride Carbon Dioxide BUN 25 H Creatinine Glucose POC Glucose Magnesium Ferritin 410.1 H AST ALT Lactate Dehydrogenase 184 H Total Creatine Kinase C-Reactive Protein 10.70 H Total Protein Albumin TSH Free T4 Coronavirus (PCR) Crossmatch 05/07/21 05/07/21 05/07/21 04:34 04:34 06:14 WBC RBC Hgb Hct RDW Plt Count Lymph % (Auto) Lymph # (Auto) Seg Neutrophils % Seg Neuts % (Manual) Lymphocytes % (Manual) Lymphocytes # (Manual) PT APTT D-Dimer ABG pH ABG pO2 ABG HCO3 ABG O2 Saturation ABG Base Excess ABG Hemoglobin Oxyhemoglobin Sodium Potassium Chloride Carbon Dioxide BUN Creatinine Glucose POC Glucose 134 H Magnesium Ferritin AST ALT Lactate Dehydrogenase Total Creatine Kinase C-Reactive Protein Total Protein Albumin TSH 9.910 H Free T4 0.61 L Coronavirus (PCR) Crossmatch 05/07/21 05/07/21 05/07/21 12:42 14:29 16:08 WBC RBC Hgb Hct RDW Plt Count Lymph % (Auto) Lymph # (Auto) Seg Neutrophils % Seg Neuts % (Manual) Lymphocytes % (Manual) Lymphocytes # (Manual) PT APTT D-Dimer ABG pH ABG pO2 ABG HCO3 27.6 H ABG O2 Saturation ABG Base Excess ABG Hemoglobin 8.8 L Oxyhemoglobin Sodium Potassium Chloride Carbon Dioxide BUN Creatinine Glucose POC Glucose 121 H Magnesium Ferritin AST ALT Lactate Dehydrogenase Total Creatine Kinase C-Reactive Protein Total Protein 8.6 H Albumin 3.0 L TSH Free T4 Coronavirus (PCR) Crossmatch 05/07/21 05/07/21 05/07/21 18:19 21:17 21:25 WBC RBC Hgb Hct RDW Plt Count Lymph % (Auto) Lymph # (Auto) Seg Neutrophils % Seg Neuts % (Manual) Lymphocytes % (Manual) Lymphocytes # (Manual) PT APTT D-Dimer ABG pH 7.311 L ABG pO2 95.5 H ABG HCO3 28.6 H ABG O2 Saturation ABG Base Excess ABG Hemoglobin 7.8 L Oxyhemoglobin Sodium Potassium Chloride Carbon Dioxide BUN Creatinine Glucose POC Glucose 149 H 143 H Magnesium Ferritin AST ALT Lactate Dehydrogenase Total Creatine Kinase C-Reactive Protein Total Protein Albumin TSH Free T4 Coronavirus (PCR) Crossmatch 05/08/21 05/08/21 05/08/21 06:33 07:29 09:20 WBC RBC Hgb Hct RDW Plt Count Lymph % (Auto) Lymph # (Auto) Seg Neutrophils % Seg Neuts % (Manual) Lymphocytes % (Manual) Lymphocytes # (Manual) PT APTT D-Dimer ABG pH 7.487 H ABG pO2 70.0 L ABG HCO3 29.3 H ABG O2 Saturation ABG Base Excess 5.5 H ABG Hemoglobin 7.6 L Oxyhemoglobin 94.3 L Sodium Potassium Chloride Carbon Dioxide BUN Creatinine Glucose POC Glucose 148 H 151 H Magnesium Ferritin AST ALT Lactate Dehydrogenase Total Creatine Kinase C-Reactive Protein Total Protein Albumin TSH Free T4 Coronavirus (PCR) Crossmatch 05/08/21 05/08/21 05/08/21 11:23 14:47 14:47 WBC RBC 2.57 L Hgb 7.7 L Hct 24.0 L RDW 17.9 H Plt Count 113 L Lymph % (Auto) Lymph # (Auto) Seg Neutrophils % Seg Neuts % (Manual) Lymphocytes % (Manual) Lymphocytes # (Manual) PT APTT D-Dimer ABG pH ABG pO2 ABG HCO3 ABG O2 Saturation ABG Base Excess ABG Hemoglobin Oxyhemoglobin Sodium 135 L Potassium Chloride Carbon Dioxide BUN 35 H Creatinine Glucose 145 H POC Glucose 124 H Magnesium Ferritin AST ALT Lactate Dehydrogenase Total Creatine Kinase C-Reactive Protein Total Protein Albumin TSH Free T4 Coronavirus (PCR) Crossmatch 05/08/21 05/08/21 05/09/21 17:08 23:23 05:37 WBC RBC Hgb Hct RDW Plt Count Lymph % (Auto) Lymph # (Auto) Seg Neutrophils % Seg Neuts % (Manual) Lymphocytes % (Manual) Lymphocytes # (Manual) PT APTT D-Dimer ABG pH ABG pO2 ABG HCO3 ABG O2 Saturation ABG Base Excess ABG Hemoglobin Oxyhemoglobin Sodium Potassium Chloride Carbon Dioxide BUN Creatinine Glucose POC Glucose 151 H 127 H 118 H Magnesium Ferritin AST ALT Lactate Dehydrogenase Total Creatine Kinase C-Reactive Protein Total Protein Albumin TSH Free T4 Coronavirus (PCR) Crossmatch 05/09/21 05/09/21 05/09/21 06:47 06:47 06:47 WBC RBC Hgb Hct RDW Plt Count Lymph % (Auto) Lymph # (Auto) Seg Neutrophils % Seg Neuts % (Manual) Lymphocytes % (Manual) Lymphocytes # (Manual) PT APTT D-Dimer 2342.13 H ABG pH ABG pO2 ABG HCO3 ABG O2 Saturation ABG Base Excess ABG Hemoglobin Oxyhemoglobin Sodium Potassium Chloride Carbon Dioxide BUN 44 H Creatinine 1.3 H Glucose 122 H POC Glucose Magnesium Ferritin 500.1 H AST ALT Lactate Dehydrogenase 212 H Total Creatine Kinase C-Reactive Protein 12.90 H Total Protein Albumin TSH Free T4 Coronavirus (PCR) Crossmatch 05/09/21 05/09/21 05/09/21 06:47 09:53 13:16 WBC RBC 2.39 L Hgb 7.3 L Hct 22.2 L RDW 17.7 H Plt Count 109 L Lymph % (Auto) Lymph # (Auto) Seg Neutrophils % Seg Neuts % (Manual) Lymphocytes % (Manual) Lymphocytes # (Manual) PT APTT D-Dimer ABG pH ABG pO2 ABG HCO3 ABG O2 Saturation ABG Base Excess ABG Hemoglobin Oxyhemoglobin Sodium Potassium Chloride Carbon Dioxide BUN Creatinine Glucose POC Glucose 132 H Magnesium Ferritin AST ALT Lactate Dehydrogenase Total Creatine Kinase C-Reactive Protein Total Protein 8.3 H Albumin 2.6 L TSH Free T4 Coronavirus (PCR) Crossmatch 05/09/21 05/09/21 05/09/21 14:17 15:20 16:57 WBC RBC Hgb Hct RDW Plt Count Lymph % (Auto) Lymph # (Auto) Seg Neutrophils % Seg Neuts % (Manual) Lymphocytes % (Manual) Lymphocytes # (Manual) PT APTT D-Dimer ABG pH 7.467 H ABG pO2 58.7 L ABG HCO3 31.5 H ABG O2 Saturation 99.3 H ABG Base Excess 7.2 H ABG Hemoglobin Oxyhemoglobin Sodium Potassium Chloride Carbon Dioxide BUN Creatinine Glucose POC Glucose 163 H 159 H Magnesium Ferritin AST ALT Lactate Dehydrogenase Total Creatine Kinase C-Reactive Protein Total Protein Albumin TSH Free T4 Coronavirus (PCR) Crossmatch 05/09/21 05/09/21 05/10/21 21:31 23:53 04:13 WBC RBC Hgb Hct RDW Plt Count Lymph % (Auto) Lymph # (Auto) Seg Neutrophils % Seg Neuts % (Manual) Lymphocytes % (Manual) Lymphocytes # (Manual) PT APTT D-Dimer ABG pH ABG pO2 ABG HCO3 ABG O2 Saturation ABG Base Excess ABG Hemoglobin Oxyhemoglobin Sodium Potassium Chloride Carbon Dioxide BUN Creatinine Glucose POC Glucose 136 H 138 H 110 H Magnesium Ferritin AST ALT Lactate Dehydrogenase Total Creatine Kinase C-Reactive Protein Total Protein Albumin TSH Free T4 Coronavirus (PCR) Crossmatch 05/10/21 05/10/21 05/10/21 04:51 04:51 08:10 WBC RBC 2.59 L Hgb 7.9 L Hct 24.0 L RDW 17.7 H Plt Count Lymph % (Auto) Lymph # (Auto) Seg Neutrophils % Seg Neuts % (Manual) Lymphocytes % (Manual) Lymphocytes # (Manual) PT APTT D-Dimer ABG pH ABG pO2 ABG HCO3 ABG O2 Saturation ABG Base Excess ABG Hemoglobin Oxyhemoglobin Sodium Potassium Chloride Carbon Dioxide BUN 47 H Creatinine Glucose 125 H POC Glucose 142 H Magnesium Ferritin AST ALT Lactate Dehydrogenase Total Creatine Kinase C-Reactive Protein Total Protein Albumin TSH Free T4 Coronavirus (PCR) Crossmatch 05/10/21 11:41 WBC RBC Hgb Hct RDW Plt Count Lymph % (Auto) Lymph # (Auto) Seg Neutrophils % Seg Neuts % (Manual) Lymphocytes % (Manual) Lymphocytes # (Manual) PT APTT D-Dimer ABG pH ABG pO2 ABG HCO3 ABG O2 Saturation ABG Base Excess ABG Hemoglobin Oxyhemoglobin Sodium Potassium Chloride Carbon Dioxide BUN Creatinine Glucose POC Glucose 163 H Magnesium Ferritin AST ALT Lactate Dehydrogenase Total Creatine Kinase C-Reactive Protein Total Protein Albumin TSH Free T4 Coronavirus (PCR) Crossmatch Chest x-ray: image reviewed (persistent bilateral and amber-hilar infiltrates) Allied health notes reviewed: nursing
--- NOTE | 2021-05-10 14:10 | Progress Note ---
Assessment and Plan Cultures: Blood culture 05/02/2021 no growth Sputum culture 05/02/2021 no growth A/P: 89-year-old female past medical history hypertension now with: #Severe COVID-19 pneumonia: Patient presented with a week of symptoms, chest x- ray with diffuse bilateral infiltrates, admission O2 sats on room air. Inflammatory markers elevated #Acute hypoxemic respiratory failure: Likely secondary to COVID-19 infection. Currently on the vent #PEA arrest: ROSC achieved after 1 round of epi Recommendations: -Dexamethasone 6 mg IV/PO daily for 10 days -Obtain q48-72h inflammatory markers - ferritin, Ddimer, CRP, LDH -Complete 5 days cefepime -Anticoagulation per hospital protocol -Proning as able Thank you for the consult, we will continue to follow. Rhianna Gallagher MD [facility] ([facility] O: [phone] F: [phone] Subjective Date of service: 05/10/21 Principal diagnosis: Symptomatic bradycardia; AHRF; Cardiogenic shock; Thrombocytopenia; AMS Interval history: Afebrile, normal white count. Imaging personally reviewed: Chest x-ray: Diffuse opacities bilateral lungs. Objective - Exam Narrative Exam: Physical exam deferred to reduce risk of transmission of COVID-19. Please refer to primary team's note. - Constitutional Vitals: Vital Signs Temp Pulse Resp BP Pulse Ox 98.6 F 88 19 166/74 99 05/10/21 12:00 05/10/21 13:49 05/10/21 13:08 05/10/21 13:49 05/10/21 13:08 Temperature -Last 24 Hours Temperature 98.6 F Temperature 98.6 F Temperature 97.5 F Temperature 98.3 F Temperature 98.4 F - Labs CBC & Chem 7: 05/10/21 04:51 05/10/21 04:51 Labs: Abnormal lab results 05/09/21 05/09/21 05/09/21 Range/Units 14:17 15:20 16:57 RBC (3.65-5.03) M/mm3 Hgb (10.1-14.3) gm/dl Hct (30.3-42.9) % RDW (13.2-15.2) % ABG pH 7.467 H (7.350-7.450) pH Units ABG pO2 58.7 L (80.0-90.0) mm Hg ABG HCO3 31.5 H (20.0-26.0) mmol/L ABG O2 Saturation 99.3 H (95.0-99.0) % ABG Base Excess 7.2 H (-2.0-3.0) mmol/L BUN (7-17) mg/dL Glucose (65-100) mg/dL POC Glucose 163 H 159 H (70-105) mg/dL 05/09/21 05/09/21 05/10/21 Range/Units 21:31 23:53 04:13 RBC (3.65-5.03) M/mm3 Hgb (10.1-14.3) gm/dl Hct (30.3-42.9) % RDW (13.2-15.2) % ABG pH (7.350-7.450) pH Units ABG pO2 (80.0-90.0) mm Hg ABG HCO3 (20.0-26.0) mmol/L ABG O2 Saturation (95.0-99.0) % ABG Base Excess (-2.0-3.0) mmol/L BUN (7-17) mg/dL Glucose (65-100) mg/dL POC Glucose 136 H 138 H 110 H (70-105) mg/dL 05/10/21 05/10/21 05/10/21 Range/Units 04:51 04:51 08:10 RBC 2.59 L (3.65-5.03) M/mm3 Hgb 7.9 L (10.1-14.3) gm/dl Hct 24.0 L (30.3-42.9) % RDW 17.7 H (13.2-15.2) % ABG pH (7.350-7.450) pH Units ABG pO2 (80.0-90.0) mm Hg ABG HCO3 (20.0-26.0) mmol/L ABG O2 Saturation (95.0-99.0) % ABG Base Excess (-2.0-3.0) mmol/L BUN 47 H (7-17) mg/dL Glucose 125 H (65-100) mg/dL POC Glucose 142 H (70-105) mg/dL 05/10/21 Range/Units 11:41 RBC (3.65-5.03) M/mm3 Hgb (10.1-14.3) gm/dl Hct (30.3-42.9) % RDW (13.2-15.2) % ABG pH (7.350-7.450) pH Units ABG pO2 (80.0-90.0) mm Hg ABG HCO3 (20.0-26.0) mmol/L ABG O2 Saturation (95.0-99.0) % ABG Base Excess (-2.0-3.0) mmol/L BUN (7-17) mg/dL Glucose (65-100) mg/dL POC Glucose 163 H (70-105) mg/dL
[2021-05-10] MEDS ORDERED: QUEtiapine 25 MG TAB PO SCH (15:00)
[2021-05-10] MEDS ORDERED: QUEtiapine 25 MG TAB PO STA (15:30)
[2021-05-10 15:41] LABS: ABG Base Excess 10.2 mmol/L (-2.0-3.0); ABG HCO3 34.7 mmol/L (20.0-26.0); ABG Methemoglobin 0.4 % (0.0-1.5); ABG Oxygen Saturation 97.1 % (95.0-99.0); ABG PCO2 49.5 mm Hg; ABG PH 7.464 pH Units (7.350-7.450); ABG PO2 77.1 mm Hg (80.0-90.0)
[2021-05-10] MEDS: QUEtiapine 25 MG TAB PO SCH ×2 (16:29→21:07)
[2021-05-10 16:46] LABS: Heparin-Induced Platelet Antib Negative (Negative); Unfractionated Heparin Negative (Negative)
--- NOTE | 2021-05-10 18:11 | Progress Note ---
<CLAYZachARSatnam - Last Filed: 05/10/21 18:18> Assessment and Plan Assessment and plan: This is a 89-year-old female HTN, legally blind, nicotine abuse, VENETIE and recent UTI initially admitted for bradycardia and AMS. Patient subsequently PEA arrested with ROSC in the ED was intubated and placed on ventilatory support. T dee was taken to [facility] for emergent transvenous pacemaker placement by Cardio. Assessment and Plan Symptomatic bradycardia, s/p PEA arrest, cardiogenic shock, h/o hypertension -S/p transvenous pacemaker (05/02-05/07) -Cardiology consulted, appreciate recommendations -S/p atropine with transient response-> PEA arrest -S/p dopamine drip -05/02 echocardiogram shows EF of 65 to 70% -Started on p.o. hydralazine for hypertension -Blood pressure monitor per protocol Acute hypoxic respiratory failure -Intubated on 05/02 and extubated 05/08 with a 7.00 ETT at 22 at the lips -Noted to have increased work of breathing and reintubated on 05/08 with 7.50 ETT at -CCM consulted, appreciate recommendations -A.m. vent settings AC rate 20, tidal volume 400, PEEP 8, FiO2 30% -See RT notes for titration -CPAP trial -ABG and CXR per [facility] -VAP bundle -Continuous SPO2 monitoring -Started on steroids due to angioedema Severe COVID-19 pneumonia -CXR showed diffuse bilateral infiltrates, hypoxia on admission -Infectious disease consulted, appreciate recommendations -s/p Dexamethasone for 10 days -s/p cefepime for 5 days -Anticoagulation per protocol -Trend COVID-19 inflammatory markers -Droplet/isolation precautions Acute metabolic encephalopathy, h/o legally blind -Avoid delirium -Maintain sleep-wake cycle -Sedated with fentanyl -RASS goal 0 to -1 -Started on Seroquel -dose increased Severe constipation, transaminitis -24 hours -312 mL -No BM recorded since admit -ducolax suppository given with no response -04/14 25 KUB shows constipation -will give mag citrate -bm 05/10 -BR: Colace, Senokot -PPI -Trend LFT Thrombocytopenia, anemia, leukopenia (resolved) -HIT panel pending -Platelets noted 73 K 05/06 Now slowly improving -SCD to bilateral lower extremity while in bed -Trend CBC -Transfuse hemoglobin less than 7 -Hold chemical anticoagulation for now Sick thyroid syndrome -Levothyroxine -TSH 10.35, free T4 0.61 -Repeat TSH 9.9/FT 4 0.61 The high probability of a clinically significant, sudden or life threatening deterioration of the [multi] system(s) required my full and direct attention, intervention and personal management. The aggregate critical care time was [60] minutes. This time is in addition to time spent performing reported procedures but includes the following: [x] Data Review and interpretation [x] Patient assessment and monitoring of vital signs [x] Documentation [x] Medication orders and management Disposition Plan: icu Total Time Spent with Patient (Minutes): 60 History Interval history: This is a 89-year-old female with hypertension, legally blind, recent UTI, nicotine abuse hard of hearing who presented to the emergency department on 05/02 with AMS, decreased p.o. of note, bradycardia via EMS. Per family patient has been exhibiting mumbling/hallucination/strange paranoid behavior approximately 2 weeks prior to presentation and was seen by her PCP who noticed that her blood pressure was extremely elevated in the office documented systolic of 240 and she was treated for high blood pressure and UTI at that time. She improved after this per family but subsequently worsened and request to same behavior exhibited 2 weeks ago and became unresponsive prior to arrival. Per EMS patient was noted to be bradycardic to 38 bpm and given atropine with improvement in heart rate to 65 however the patient shortly thereafter bradyed down to 45 bpm. In the emergency department patient was confused. The emergency department patient lost a pulse and went into PEA arrest and ACLS was initiated by ED staff and ROSC was achieved after 1 round of epinephrine. Patient was taken immediately to the [facility] by cardiology for transvenous pacemaker placement and was intubated. Patient was admitted to the hospitalist service with symptomatic bradycardia, s/p cardiac arrest, acute hypoxic respiratory failure, cardiogenic shock, electrode imbalances, hypothermia, acute metabolic encephalopathy, euthyroid sick syndrome, transaminitis with consults to cardiology, pulmonology and eventually infectious disease. Hospital Course to Date: 05/03: s/p cardiac arrest, remains unresponsive, not on any sedation. +gag/cough and corneal reflex, pending CT head/brain. Patient H&H also dropped this am, 1unit of PRBCs ordered. Hyperkalemia was treated per protoocl, repeat BMP at 1600. BR was initiated for severe constipation, TF was initiated. 05/04: Patient is awake this am, following simple commands. Off dopamine gtt and Transvenous pacer at a back rate of 60. COVID PCR +, patient is on IV Abx and IV steroids. Awaiting cardio recommendation, if no plan for PPM insertion, plan for PST for possible extubation. 05/05: On sedation this am due to increase agitation. Patient failed SAT this am. 1unit ordered for low H&H this am with worsening in thrombocytopenia, AC held and stool occult ordered. Transvenous pacer still present at a back up rate of 50, patient SR on the monitor this am, HR in the 60s. Plan for possible TVP removal tomorrow by Cardio. 05/06: Patient tried on PSV today, hydralazine p.o. for hypertension (initial DCCV but discontinued due to transvenous pacemaker in place), HIT panel ordered. 05/07: Transvenous catheter removed by cardiology, placed on SBT. Head still pending. Repeat thyroid studies show slight improvement. No acute events reported overnight. Home Norvasc changed to hydralazine today 05/08: Added Seroquel per CCM, systemic steroids started for laryngeal edema and patient started on IV Lasix for 3 days. Drop in H/H from 8.2/24.7-7.7/24 noted, will repeat CBC in the a.m. Thrombocytopenia has improved. Patient was extubated yesterday afternoon however she had to be reintubated late evening due to increased work of breathing. Given Dulcolax suppository today 05/09: Continue Seroquel, begin scopolamine for secretion control, CCM and vent changes and will continue Lasix for 1 more day. Given mag citrate 05/10: Patient on CPAP trial, started on Robinul and Mucomyst, CCM will continue Lasix for 2 more days and Seroquel increased to 25 mg due to agitation. Hospitalist Physical - Constitutional Vitals: Temp Pulse Resp BP Pulse Ox 98.6 F 76 20 169/97 97 05/10/21 12:00 05/10/21 17:00 05/10/21 17:00 05/10/21 17:00 05/10/21 17:00 General appearance: Present: no acute distress, other (Intubated and sedated) - EENT Eyes: Present: PERRL, EOM intact ENT: hearing intact, clear oral mucosa, dentition normal - Neck Neck: Present: normal ROM - Respiratory Respiratory effort: normal Respiratory: bilateral: diminished - Cardiovascular Rhythm: regular Heart Sounds: Present: S1 & S2 - Extremities Extremities: no ischemia, pulses intact, pulses symmetrical, No edema, normal temperature, normal color Peripheral Pulses: within normal limits - Abdominal General gastrointestinal: soft, non-tender, non-distended, normal bowel sounds - Integumentary Integumentary: Present: warm, dry - Psychiatric Psychiatric: cooperative - Neurologic Neurologic: CNII-XII intact, moves all extremities - Allied Health Allied health notes reviewed: nursing, RT, social work HEART Score - HEART Score Troponin: Troponin T < 0.010 ng/mL (0.00-0.029) 05/02/21 05:16 Results - Labs CBC & Chem 7: 05/10/21 04:51 05/10/21 04:51 Labs: Laboratory Last Values WBC 9.1 K/mm3 (4.5-11.0) 05/10/21 04:51 RBC 2.59 M/mm3 (3.65-5.03) L 05/10/21 04:51 Hgb 7.9 gm/dl (10.1-14.3) L 05/10/21 04:51 Hct 24.0 % (30.3-42.9) L 05/10/21 04:51 MCV 92 fl (79-97) 05/10/21 04:51 MCH 30 pg (28-32) 05/10/21 04:51 MCHC 33 % (30-34) 05/10/21 04:51 RDW 17.7 % (13.2-15.2) H 05/10/21 04:51 Plt Count 159 K/mm3 (140-440) 05/10/21 04:51 Lymph % (Auto) 10.4 % (13.4-35.0) L 05/04/21 09:41 [place] % (Auto) 4.9 % (0.0-7.3) 05/04/21 09:41 Eos % (Auto) 0.0 % (0.0-4.3) 05/04/21 09:41 Baso % (Auto) 0.0 % (0.0-1.8) 05/04/21 09:41 Lymph # (Auto) 0.6 K/mm3 (1.2-5.4) L 05/04/21 09:41 [place] # (Auto) 0.3 K/mm3 (0.0-0.8) 05/04/21 09:41 Eos # (Auto) 0.0 K/mm3 (0.0-0.4) 05/04/21 09:41 Baso # (Auto) 0.0 K/mm3 (0.0-0.1) 05/04/21 09:41 Add Manual Diff Complete 05/03/21 04:52 Total Counted 100 05/03/21 04:52 Seg Neutrophils % 84.7 % (40.0-70.0) H 05/04/21 09:41 Seg Neuts % (Manual) 86.0 % (40.0-70.0) H 05/03/21 04:52 Band Neutrophils % 8.0 % 05/03/21 04:52 Lymphocytes % (Manual) 3.0 % (13.4-35.0) L 05/03/21 04:52 Reactive Lymphs % (Man) 0 % 05/03/21 04:52 Monocytes % (Manual) 2.0 % (0.0-7.3) 05/03/21 04:52 Eosinophils % (Manual) 1.0 % (0.0-4.3) 05/03/21 04:52 Basophils % (Manual) 0 % (0.0-1.8) 05/03/21 04:52 Metamyelocytes % 0 % 05/03/21 04:52 Myelocytes % 0 % 05/03/21 04:52 Promyelocytes % 0 % 05/03/21 04:52 Blast Cells % 0 % 05/03/21 04:52 Nucleated RBC % Not Reportable 05/03/21 04:52 Seg Neutrophils # 4.6 K/mm3 (1.8-7.7) 05/04/21 09:41 Seg Neutrophils # Man 3.9 K/mm3 (1.8-7.7) 05/03/21 04:52 Band Neutrophils # 0.4 K/mm3 05/03/21 04:52 Lymphocytes # (Manual) 0.1 K/mm3 (1.2-5.4) L 05/03/21 04:52 Abs React Lymphs (Man) 0.0 K/mm3 05/03/21 04:52 Monocytes # (Manual) 0.1 K/mm3 (0.0-0.8) 05/03/21 04:52 Eosinophils # (Manual) 0.0 K/mm3 (0.0-0.4) 05/03/21 04:52 Basophils # (Manual) 0.0 K/mm3 (0.0-0.1) 05/03/21 04:52 Metamyelocytes # 0.0 K/mm3 05/03/21 04:52 Myelocytes # 0.0 K/mm3 05/03/21 04:52 Promyelocytes # 0.0 K/mm3 05/03/21 04:52 Blast Cells # 0.0 K/mm3 05/03/21 04:52 WBC Morphology Not Reportable 05/03/21 04:52 Hypersegmented Neuts Not Reportable 05/03/21 04:52 Hyposegmented Neuts Not Reportable 05/03/21 04:52 Hypogranular Neuts Not Reportable 05/03/21 04:52 Smudge Cells Not Reportable 05/03/21 04:52 Toxic Granulation Not Reportable 05/03/21 04:52 Toxic Vacuolation Not Reportable 05/03/21 04:52 Dohle Bodies Not Reportable 05/03/21 04:52 Pelger-Huet Anomaly Not Reportable 05/03/21 04:52 Shanti Rods Not Reportable 05/03/21 04:52 Platelet Estimate Consistent w auto 05/03/21 04:52 Clumped Platelets Not Reportable 05/03/21 04:52 Plt Clumps, EDTA Not Reportable 05/03/21 04:52 Large Platelets Not Reportable 05/03/21 04:52 Giant Platelets Not Reportable 05/03/21 04:52 Platelet Satelliting Not Reportable 05/03/21 04:52 Plt Morphology Comment Not Reportable 05/03/21 04:52 RBC Morphology Not Reportable 05/03/21 04:52 Dimorphic RBCs Not Reportable 05/03/21 04:52 Polychromasia Not Reportable 05/03/21 04:52 Hypochromasia 2+ 05/03/21 04:52 Poikilocytosis Not Reportable 05/03/21 04:52 Anisocytosis 1+ 05/03/21 04:52 Microcytosis Not Reportable 05/03/21 04:52 Macrocytosis Few 05/03/21 04:52 Spherocytes Not Reportable 05/03/21 04:52 Pappenheimer Bodies Not Reportable 05/03/21 04:52 Sickle Cells Not Reportable 05/03/21 04:52 Target Cells Not Reportable 05/03/21 04:52 Tear Drop Cells Not Reportable 05/03/21 04:52 Ovalocytes Few 05/03/21 04:52 Helmet Cells Not Reportable 05/03/21 04:52 [place] Bodies Not Reportable 05/03/21 04:52 [place] Rings Not Reportable 05/03/21 04:52 Melvin Cells Not Reportable 05/03/21 04:52 Bite Cells Not Reportable 05/03/21 04:52 Crenated Cell Not Reportable 05/03/21 04:52 Elliptocytes Not Reportable 05/03/21 04:52 Acanthocytes (Spur) Not Reportable 05/03/21 04:52 Rouleaux Not Reportable 05/03/21 04:52 Hemoglobin C Crystals Not Reportable 05/03/21 04:52 Schistocytes Not Reportable 05/03/21 04:52 Malaria parasites Not Reportable 05/03/21 04:52 Anatoly Bodies Not Reportable 05/03/21 04:52 Hem Pathologist Commnt No 05/03/21 04:52 PT 15.1 Sec. (12.2-14.9) H 05/02/21 05:16 INR 1.07 (0.87-1.13) 05/02/21 05:16 APTT 41.7 Sec. (24.2-36.6) H 05/02/21 05:16 D-Dimer 2342.13 ng/mlDDU (0-234) H 05/09/21 06:47 Heparin Anti-Xa, Unfract Negative (Negative) 05/06/21 14:14 ABG pH 7.464 pH Units (7.350-7.450) H 05/10/21 15:12 ABG pCO2 49.5 mm Hg 05/10/21 15:12 ABG pO2 77.1 mm Hg (80.0-90.0) L 05/10/21 15:12 ABG HCO3 34.7 mmol/L (20.0-26.0) H 05/10/21 15:12 ABG O2 Saturation 97.1 % (95.0-99.0) 05/10/21 15:12 ABG O2 Content 6.2 (0.0-44) 05/10/21 15:12 ABG Base Excess 10.2 mmol/L (-2.0-3.0) H 05/10/21 15:12 ABG Hemoglobin 9.4 gm/dl (12.0-16.0) L 05/10/21 15:12 ABG Carboxyhemoglobin 1.6 % (0.0-5.0) 05/10/21 15:12 ABG Methemoglobin 0.4 % (0.0-1.5) 05/10/21 15:12 Oxyhemoglobin 95.1 % (95.0-99.0) 05/10/21 15:12 FiO2 35 % 05/10/21 15:12 Sodium 139 mmol/L (137-145) 05/10/21 04:51 Potassium 5.0 mmol/L (3.6-5.0) 05/10/21 04:51 Chloride 98.8 mmol/L (98-107) 05/10/21 04:51 Carbon Dioxide 29 mmol/L (22-30) 05/10/21 04:51 Anion Gap 16 mmol/L 05/10/21 04:51 BUN 47 mg/dL (7-17) H 05/10/21 04:51 Creatinine 1.0 mg/dL (0.6-1.2) 05/10/21 04:51 Estimated GFR > 60 ml/min 05/10/21 04:51 BUN/Creatinine Ratio 47 % 05/10/21 04:51 Glucose 125 mg/dL (65-100) H 05/10/21 04:51 POC Glucose 147 mg/dL (70-105) H 05/10/21 16:51 Lactic Acid 0.80 mmol/L (0.7-2.0) 05/02/21 05:53 Calcium 9.4 mg/dL (8.4-10.2) 05/10/21 04:51 Phosphorus 2.90 mg/dL (2.5-4.5) D 05/06/21 04:56 Magnesium 2.30 mg/dL (1.7-2.3) 05/06/21 04:56 Ferritin 500.1 ng/mL (10.0-200.0) H 05/09/21 06:47 Total Bilirubin 0.20 mg/dL (0.1-1.2) 05/09/21 13:16 Direct Bilirubin < 0.2 mg/dL (0-0.2) 05/09/21 13:16 Indirect Bilirubin 0.0 mg/dL 05/09/21 13:16 AST 28 units/L (5-40) 05/09/21 13:16 ALT 37 units/L (7-56) 05/09/21 13:16 Alkaline Phosphatase 100 units/L (35-129) 05/09/21 13:16 Lactate Dehydrogenase 212 units/L (91-180) H 05/09/21 06:47 Total Creatine Kinase 189 units/L (30-135) H 05/02/21 05:53 Troponin T < 0.010 ng/mL (0.00-0.029) 05/02/21 05:16 C-Reactive Protein 12.90 mg/dL (0.00-1.30) H 05/09/21 06:47 NT-Pro-B Natriuret Pep 341.7 pg/mL (0-900) 05/02/21 05:17 Total Protein 8.3 g/dL (6.3-8.2) H 05/09/21 13:16 Albumin 2.6 g/dL (3.9-5) L 05/09/21 13:16 Albumin/Globulin Ratio 0.5 % 05/09/21 13:16 Triglycerides 62 mg/dL (2-149) 05/07/21 04:34 Procalcitonin 0.74 ng/mL (<0.15) 05/03/21 04:52 TSH 9.910 mlU/mL (0.270-4.200) H 05/07/21 04:34 Free T4 0.61 ng/dL (0.76-1.46) L 05/07/21 04:34 Heparin-induced Plt Ab Negative (Negative) 05/06/21 14:14 UF Heparin High Dose 0 % Release 05/06/21 14:14 ALEXEY UFH Low Dose 0.1 0 % Release 05/06/21 14:14 ALEXEY UFH Low Dose 0.5 0 % Release 05/06/21 14:14 Coronavirus (PCR) Positive (Negative) A 05/03/21 Unknown Blood Type O POSITIVE 05/03/21 14:13 Antibody Screen Negative 05/03/21 14:13 Crossmatch See Detail 05/03/21 14:13 Peoples/IV: Voiding Method Indwelling Catheter Active Medications - Current Medications Current Medications: Generic Name Dose Route Start Last Admin Trade Name Freq PRN Reason Stop Dose Admin Acetaminophen 650 mg 05/02/21 08:59 Acetaminophen 325 Mg/10.15 Ml Oral Liqd Unit Dose FEEDTUBE Q6H PRN Pain MILD(1-3)/Fever >100.5/[place] Acetylcysteine 200 mg 05/10/21 20:00 Acetylcysteine 20% 200 Mg/1 Ml *For Inhalation Use* INHALATION Q6HRT JHON Albuterol/Ipratropium 1 ampul 05/04/21 08:00 05/10/21 15:06 Ipratropium/Albuterol Sulfate 3 Ml Ampul.Neb IH 1 ampul TIDRT JHON Administration Budesonide 0.5 mg 05/02/21 10:00 05/10/21 09:10 Budesonide 0.5 Mg/2 Ml Nebu IH 0.5 mg Q12HRT JHON Administration Dexamethasone 6 mg 05/07/21 10:00 05/10/21 09:53 Dexamethasone 4 Mg/Ml Vial IV 05/12/21 10:01 6 mg Q24HR JHON Administration Dextrose 0 ml 05/03/21 11:20 05/07/21 05:45 Dextrose 10% *Hypoglycemia IV 50 ml PRN PRN Administration Hypoglycemia Docusate Sodium 100 mg 05/03/21 12:00 05/10/21 09:53 Docusate Sodium 100 Mg/10 Ml Oral Liqd PO 100 mg BID JHON Administration Famotidine 10 mg 05/06/21 22:00 05/10/21 09:52 Famotidine 10 Mg Tab FEEDTUBE 10 mg BID JHON Administration Fentanyl 50 mcg 05/03/21 11:30 05/04/21 18:18 Fentanyl 100 Mcg/2 Ml Inj IV 50 mcg Q10MIN PRN Administration ANALGESIA Furosemide 20 mg 05/11/21 15:00 Furosemide 20 Mg/2 Ml Inj IV 05/12/21 10:01 QDAY [facility] Glycopyrrolate 1 mg 05/10/21 20:00 Glycopyrrolate 1 Mg Tab PO TID [facility] Hydralazine HCl 25 mg 05/06/21 22:00 05/10/21 13:49 Hydralazine 25 Mg Tab PO 25 mg Q8HR JHON Administration Hydralazine HCl 10 mg 05/07/21 19:25 05/09/21 23:10 Hydralazine 20 Mg/1 Ml Inj IV 10 mg Q4HR PRN Administration Hypertension Hydrophilic Ointment 1 applic 05/07/21 20:35 Lip Therapy Vaseline TP Q2HR PRN Dry Lips NORepinephrine/NS 8 MG-250 ML 8 mg in 250 mls @ 3.75 mls/hr 05/02/21 10:00 Norepinephrine/Ns 8 Mg-250 Ml (Double Conc) IV TITRATE [facility] Protocol 2 MCG/MIN Fentanyl Citrate 2,000 mcg in 100 mls @ 2.397 mls/hr 05/03/21 12:00 05/10/21 13:48 Fentanyl Drip Premix IV 1 mcg/kg/hr TITR JHON 2.397 mls/hr Administration Protocol 1 MCG/KG/HR Propofol 1,000 mg in 100 mls @ 1.438 mls/hr 05/04/21 22:00 05/08/21 06:17 Diprivan 10 Mg/Ml IV 0 mcg/kg/min TITR JHON 0 mls/hr Titration Protocol 5 MCG/KG/MIN Insulin Human Lispro 0 unit 05/09/21 00:00 05/10/21 12:47 Insulin Lispro 100 Unit/Ml SUB-Q 1 unit Q6HR [facility] Administration Protocol Levothyroxine Sodium 25 mcg 05/02/21 06:00 05/10/21 06:17 Levothyroxine 100 Mcg Inj IV 25 mcg DAILY@0600 [facility] Administration Multi-Ingred Cream/Lotion/Oil/Oint 1 applic 05/07/21 20:35 Mineral Oil/Petrolatum, White Ophth Oint 3.5 Gm OU Q4HR PRN Dry Eye(s) Ondansetron HCl 4 mg 05/02/21 08:59 Ondansetron 4 Mg/2 Ml Inj IV Q8H PRN Nausea And Vomiting Polyethylene Glycol 17 gm 05/03/21 12:00 05/10/21 09:52 Polyethylene Glycol 3350 17 Gm Powder PO 17 gm QDAY JHON Administration Quetiapine Fumarate 100 mg 05/10/21 15:00 05/10/21 16:29 Quetiapine 100 Mg Tab PO 100 mg BID JHON Administration Quetiapine Fumarate 50 mg 05/10/21 16:00 05/10/21 16:29 Quetiapine 25 Mg Tab PO 50 mg BID JHON Administration Scopolamine 1 each 05/09/21 14:00 05/09/21 14:51 Scopolamine Transdermal Patch 72 Hr TD 1 each Q3D JHON Administration Senna/Docusate Sodium 1 tab 05/07/21 22:00 05/10/21 09:53 Sennosides/Docusate Sodium 8.6/50 Mg Tab FEEDTUBE 1 tab BID JHON Administration Sodium Chloride 10 ml 05/02/21 10:00 05/10/21 09:52 Sodium Chloride 0.9% 10 Ml Flush Syringe IV 10 ml BID JHON Administration Sodium Chloride 10 ml 05/02/21 08:59 Sodium Chloride 0.9% 10 Ml Flush Syringe IV PRN PRN LINE FLUSH Sodium Chloride 10 ml 05/06/21 09:58 05/08/21 21:30 Sodium Chloride 0.9% 50 Ml Ivpb IV 10 ml PRN PRN Administration FLUSH Nutrition/Malnutrition Assess - Dietary Evaluation Nutrition/Malnutrition Findings: Nutrition Notes Start: 05/03/21 14:27 Freq: Status: Active Protocol: Document 05/08/21 09:54 NATHALIE (Rec: 05/08/21 10:21 NATHALIE [id number]) Nutrition Notes Initial or Follow up Reassessment Current Diagnosis Hypertension,Respiratory Failure Other Pertinent Diagnosis COVID-19, Pneumonia, Bradycardia/PEA arrest, Constipation, Transaminitis, M Current Diet TF-Osmolite 1.5 Nando @ 40 ml/hr (since L 05/08). Labs/Tests 05/07: BUN 25. Pertinent Medications 05/08: Levothyroxine, others nutritionally unremarkable. Height 5 ft 6 in Weight 47.94 kg [place] Body Weight (kg) 59.09 BMI 17.0 Weight change and time frame No body weight changed in 2 days reported. Weight Status Underweight Subjective/Other Information RD consult for write/manage TF . Pt was extubated 05/07, and reintubated later, due to respiratory distress. TF prescription resumed. Percent of energy/protein needs met: Prescribed Osmolite 1.5 Nando @ 40 ml/hr provides for energy/ protein needs (1440 Kcal/60 g) during LOS, 100% Kcal; 100%AA . Burn Absent Trauma Absent GI Symptoms Constipation Food Allergy No Skin Integrity/Comment No skin breakdown reported Current % PO Other Minimum of two criteria No #1 Nutrition Diagnosis Inadequate oral intake Diagnosis Progress(for reassessment Continues documentation) Is patient on ventilator? Yes Is Patient Ambulatory and/or Out of Bed No REE-([facility]-confined to bed) 1119.252 Kcal/Kg value to use for calculation 30 Approximate Energy Requirements Using 1438 kcal/Kg Calculation Used for Recommendations 70-80% of EEN Additional Notes 15-20 Kcal/Kg ABW. Protein: 1.2-2 g/Kg; 58-96 g/ day. Fluids: 1 ml/Kcal, or as per MD. Nutrition Intervention Nutrition Support: Resume Osmolite 1.5 Nando @ 40 ml/hr. Flush: 120 ml water Q 4 hr, or as per MD. Kcal 1,440 Protein (gm) 60 Carbohydrates (gm) 195 Fat (gm) 47 Fluid (mL) 732 Fiber (gm) 0 % RDI: 100% Kcal; 100%AA. Goal #1 Provide at least 75% of energy /protein needs through Enteral Feeding during LOS. Goal #2 Maintain body weight within +/ -3% of admission body weight during LOS. Follow-Up By: 05/13/21 Additional Comments Continue monitoring TF tolerance and BM. <АННА GARCIA - Last Filed: 05/16/21 13:21> Assessment and Plan Assessment and plan: I saw and evaluated the patient. Discussed with the nurse practitioner and agree with their findings and plan as documented in this note. Hospitalist Physical - Constitutional Vitals: Temp Pulse Resp BP Pulse Ox 97.9 F 66 12 157/71 70 L 05/14/21 12:00 05/14/21 14:00 05/14/21 14:00 05/14/21 14:00 05/14/21 14:38 HEART Score - HEART Score Troponin: Troponin T < 0.010 ng/mL (0.00-0.029) 05/02/21 05:16 Results - Labs CBC & Chem 7: 05/14/21 05:15 05/14/21 05:15 Labs: Laboratory Last Values WBC 6.5 K/mm3 (4.5-11.0) 05/14/21 05:15 RBC 2.73 M/mm3 (3.65-5.03) L 05/14/21 05:15 Hgb 7.9 gm/dl (10.1-14.3) L 05/14/21 05:15 Hct 25.0 % (30.3-42.9) L 05/14/21 05:15 MCV 92 fl (79-97) 05/14/21 05:15 MCH 29 pg (28-32) 05/14/21 05:15 MCHC 32 % (30-34) 05/14/21 05:15 RDW 17.0 % (13.2-15.2) H 05/14/21 05:15 Plt Count 295 K/mm3 (140-440) 05/14/21 05:15 Lymph % (Auto) 10.4 % (13.4-35.0) L 05/04/21 09:41 [place] % (Auto) 4.9 % (0.0-7.3) 05/04/21 09:41 Eos % (Auto) 0.0 % (0.0-4.3) 05/04/21 09:41 Baso % (Auto) 0.0 % (0.0-1.8) 05/04/21 09:41 Lymph # (Auto) 0.6 K/mm3 (1.2-5.4) L 05/04/21 09:41 [place] # (Auto) 0.3 K/mm3 (0.0-0.8) 05/04/21 09:41 Eos # (Auto) 0.0 K/mm3 (0.0-0.4) 05/04/21 09:41 Baso # (Auto) 0.0 K/mm3 (0.0-0.1) 05/04/21 09:41 Add Manual Diff Complete 05/03/21 04:52 Total Counted 100 05/03/21 04:52 Seg Neutrophils % 84.7 % (40.0-70.0) H 05/04/21 09:41 Seg Neuts % (Manual) 86.0 % (40.0-70.0) H 05/03/21 04:52 Band Neutrophils % 8.0 % 05/03/21 04:52 Lymphocytes % (Manual) 3.0 % (13.4-35.0) L 05/03/21 04:52 Reactive Lymphs % (Man) 0 % 05/03/21 04:52 Monocytes % (Manual) 2.0 % (0.0-7.3) 05/03/21 04:52 Eosinophils % (Manual) 1.0 % (0.0-4.3) 05/03/21 04:52 Basophils % (Manual) 0 % (0.0-1.8) 05/03/21 04:52 Metamyelocytes % 0 % 05/03/21 04:52 Myelocytes % 0 % 05/03/21 04:52 Promyelocytes % 0 % 05/03/21 04:52 Blast Cells % 0 % 05/03/21 04:52 Nucleated RBC % Not Reportable 05/03/21 04:52 Seg Neutrophils # 4.6 K/mm3 (1.8-7.7) 05/04/21 09:41 Seg Neutrophils # Man 3.9 K/mm3 (1.8-7.7) 05/03/21 04:52 Band Neutrophils # 0.4 K/mm3 05/03/21 04:52 Lymphocytes # (Manual) 0.1 K/mm3 (1.2-5.4) L 05/03/21 04:52 Abs React Lymphs (Man) 0.0 K/mm3 05/03/21 04:52 Monocytes # (Manual) 0.1 K/mm3 (0.0-0.8) 05/03/21 04:52 Eosinophils # (Manual) 0.0 K/mm3 (0.0-0.4) 05/03/21 04:52 Basophils # (Manual) 0.0 K/mm3 (0.0-0.1) 05/03/21 04:52 Metamyelocytes # 0.0 K/mm3 05/03/21 04:52 Myelocytes # 0.0 K/mm3 05/03/21 04:52 Promyelocytes # 0.0 K/mm3 05/03/21 04:52 Blast Cells # 0.0 K/mm3 05/03/21 04:52 WBC Morphology Not Reportable 05/03/21 04:52 Hypersegmented Neuts Not Reportable 05/03/21 04:52 Hyposegmented Neuts Not Reportable 05/03/21 04:52 Hypogranular Neuts Not Reportable 05/03/21 04:52 Smudge Cells Not Reportable 05/03/21 04:52 Toxic Granulation Not Reportable 05/03/21 04:52 Toxic Vacuolation Not Reportable 05/03/21 04:52 Dohle Bodies Not Reportable 05/03/21 04:52 Pelger-Huet Anomaly Not Reportable 05/03/21 04:52 Shanti Rods Not Reportable 05/03/21 04:52 Platelet Estimate Consistent w auto 05/03/21 04:52 Clumped Platelets Not Reportable 05/03/21 04:52 Plt Clumps, EDTA Not Reportable 05/03/21 04:52 Large Platelets Not Reportable 05/03/21 04:52 Giant Platelets Not Reportable 05/03/21 04:52 Platelet Satelliting Not Reportable 05/03/21 04:52 Plt Morphology Comment Not Reportable 05/03/21 04:52 RBC Morphology Not Reportable 05/03/21 04:52 Dimorphic RBCs Not Reportable 05/03/21 04:52 Polychromasia Not Reportable 05/03/21 04:52 Hypochromasia 2+ 05/03/21 04:52 Poikilocytosis Not Reportable 05/03/21 04:52 Anisocytosis 1+ 05/03/21 04:52 Microcytosis Not Reportable 05/03/21 04:52 Macrocytosis Few 05/03/21 04:52 Spherocytes Not Reportable 05/03/21 04:52 Pappenheimer Bodies Not Reportable 05/03/21 04:52 Sickle Cells Not Reportable 05/03/21 04:52 Target Cells Not Reportable 05/03/21 04:52 Tear Drop Cells Not Reportable 05/03/21 04:52 Ovalocytes Few 05/03/21 04:52 Helmet Cells Not Reportable 05/03/21 04:52 [place] Bodies Not Reportable 05/03/21 04:52 [place] Rings Not Reportable 05/03/21 04:52 [place] Cells Not Reportable 05/03/21 04:52 Bite Cells Not Reportable 05/03/21 04:52 Crenated Cell Not Reportable 05/03/21 04:52 Elliptocytes Not Reportable 05/03/21 04:52 Acanthocytes (Spur) Not Reportable 05/03/21 04:52 Rouleaux Not Reportable 05/03/21 04:52 Hemoglobin C Crystals Not Reportable 05/03/21 04:52 Schistocytes Not Reportable 05/03/21 04:52 Malaria parasites Not Reportable 05/03/21 04:52 Anatoly Bodies Not Reportable 05/03/21 04:52 Hem Pathologist Commnt No 05/03/21 04:52 PT 15.1 Sec. (12.2-14.9) H 05/02/21 05:16 INR 1.07 (0.87-1.13) 05/02/21 05:16 APTT 41.7 Sec. (24.2-36.6) H 05/02/21 05:16 D-Dimer 2342.13 ng/mlDDU (0-234) H 05/09/21 06:47 Heparin Anti-Xa, Unfract Negative (Negative) 05/06/21 14:14 ABG pH 7.502 pH Units (7.350-7.450) H 05/12/21 08:25 ABG pCO2 45.2 mm Hg 05/12/21 08:25 ABG pO2 223.9 mm Hg (80.0-90.0) H 05/12/21 08:25 ABG HCO3 34.6 mmol/L (20.0-26.0) H 05/12/21 08:25 ABG O2 Saturation 99.4 % (95.0-99.0) H 05/12/21 08:25 ABG O2 Content 7.9 (0.0-44) 05/12/21 08:25 ABG Base Excess 10.5 mmol/L (-2.0-3.0) H 05/12/21 08:25 ABG Hemoglobin 5.3 gm/dl (12.0-16.0) L 05/12/21 08:25 ABG Carboxyhemoglobin 1.8 % (0.0-5.0) 05/12/21 08:25 ABG Methemoglobin 0.5 % (0.0-1.5) 05/12/21 08:25 Oxyhemoglobin 97.1 % (95.0-99.0) 05/12/21 08:25 FiO2 40 % 05/12/21 08:25 Sodium 142 mmol/L (137-145) 05/14/21 05:15 Potassium 4.2 mmol/L (3.6-5.0) 05/14/21 05:15 Chloride 100.2 mmol/L (98-107) 05/14/21 05:15 Carbon Dioxide 31 mmol/L (22-30) H 05/14/21 05:15 Anion Gap 15 mmol/L 05/14/21 05:15 BUN 40 mg/dL (7-17) H 05/14/21 05:15 Creatinine 0.9 mg/dL (0.6-1.2) 05/14/21 05:15 Estimated GFR > 60 ml/min 05/14/21 05:15 BUN/Creatinine Ratio 44 % 05/14/21 05:15 Glucose 114 mg/dL (65-100) H 05/14/21 05:15 POC Glucose 113 mg/dL (70-105) H 05/14/21 11:48 Lactic Acid 0.80 mmol/L (0.7-2.0) 05/02/21 05:53 Calcium 9.4 mg/dL (8.4-10.2) 05/14/21 05:15 Phosphorus 2.90 mg/dL (2.5-4.5) D 05/06/21 04:56 Magnesium 2.70 mg/dL (1.7-2.3) H 05/11/21 04:43 Ferritin 500.1 ng/mL (10.0-200.0) H 05/09/21 06:47 Total Bilirubin 0.20 mg/dL (0.1-1.2) 05/09/21 13:16 Direct Bilirubin < 0.2 mg/dL (0-0.2) 05/09/21 13:16 Indirect Bilirubin 0.0 mg/dL 05/09/21 13:16 AST 28 units/L (5-40) 05/09/21 13:16 ALT 37 units/L (7-56) 05/09/21 13:16 Alkaline Phosphatase 100 units/L (35-129) 05/09/21 13:16 Lactate Dehydrogenase 212 units/L (91-180) H 05/09/21 06:47 Total Creatine Kinase 189 units/L (30-135) H 05/02/21 05:53 Troponin T < 0.010 ng/mL (0.00-0.029) 05/02/21 05:16 C-Reactive Protein 12.90 mg/dL (0.00-1.30) H 05/09/21 06:47 NT-Pro-B Natriuret Pep 341.7 pg/mL (0-900) 05/02/21 05:17 Total Protein 8.3 g/dL (6.3-8.2) H 05/09/21 13:16 Albumin 2.6 g/dL (3.9-5) L 05/09/21 13:16 Albumin/Globulin Ratio 0.5 % 05/09/21 13:16 Triglycerides 62 mg/dL (2-149) 05/07/21 04:34 Serotonin Release Assay See scanned result 05/06/21 14:14 Procalcitonin 0.74 ng/mL (<0.15) 05/03/21 04:52 TSH 9.910 mlU/mL (0.270-4.200) H 05/07/21 04:34 Free T4 0.61 ng/dL (0.76-1.46) L 05/07/21 04:34 Heparin-induced Plt Ab Negative (Negative) 05/06/21 14:14 UF Heparin High Dose 0 % Release 05/06/21 14:14 ALEXEY UFH Low Dose 0.1 0 % Release 05/06/21 14:14 ALEXEY UFH Low Dose 0.5 0 % Release 05/06/21 14:14 Coronavirus (PCR) Positive (Negative) A 05/03/21 Unknown Blood Type O POSITIVE 05/11/21 17:20 Antibody Screen Negative 05/11/21 17:20 Crossmatch See Detail 05/11/21 17:20 Peoples/IV: Voiding Method Incontinent Nutrition/Malnutrition Assess - Dietary Evaluation Nutrition/Malnutrition Findings: Nutrition Notes Start: 05/03/21 14:27 Freq: Status: Discharge Protocol: Document 05/13/21 15:28 MEKA (Rec: 05/13/21 15:35 MEKA [id number]) Nutrition Notes Initial or Follow up Reassessment Current Diagnosis Hypertension,Respiratory Failure Other Pertinent Diagnosis COVID-19, Pneumonia, Bradycardia/PEA arrest, Constipation, Transaminitis, M Current Diet TF - Osmolite 1.5 at 40ml/hr Labs/Tests BUN 59 Cr 1.3 Pertinent Medications Reviewed Height 5 ft 6 in Weight 47.94 kg [place] Body Weight (kg) 59.09 BMI 17.0 Weight Status Underweight Subjective/Other Information Pt remains on vent support. Pt scheduled for trach/PEG placement tomorrow. Per RN, pt tolerating TF; last BM was 05/10. Pt receives colace, senokot, and miralax daily. Percent of energy/protein needs met: 100% energy and pro Burn Absent Trauma Absent GI Symptoms Constipation #1 Nutrition Diagnosis Inadequate oral intake Diagnosis Progress(for reassessment Continues documentation) Is patient on ventilator? Yes Is Patient Ambulatory and/or Out of Bed No REE-([facility]-confined to bed) 1119.252 Kcal/Kg value to use for calculation 30 Approximate Energy Requirements Using 1438 kcal/Kg Calculation Used for Recommendations Kcal/kg Additional Notes Pro needs 1.2-2g/k-96g/ day Fluid needs 1ml/kcal Nutrition Intervention Nutrition Support: Continue Osmolite 1.5 at 40ml/ hr with scheduled water flushes. Kcal 1,440 Protein (gm) 60 Carbohydrates (gm) 195 Fat (gm) 47 Fluid (mL) 732 Fiber (gm) 0 Goal #1 TF tolerance Goal #2 TF to meet 100% energy and pro needs Goal #3 Wt maintenance and/or gain Follow-Up By: 05/17/21 Additional Comments F/U: Trach/PEG placement, BM, vent status
[2021-05-10] MEDS ORDERED: ACETYLCYSTEINE 20% SOLN 4ML (200 MG/ML) IH SCH (20:00)
[2021-05-10] MEDS: ACETYLCYSTEINE 20% 200 MG/1 ML *FOR INHALATION USE INHALATION SCH (20:52)
[2021-05-10] MEDS: GLYCOPYRROLATE 1 MG TAB PO SCH (21:05)
[2021-05-11] MEDS: ACETYLCYSTEINE 20% 200 MG/1 ML *FOR INHALATION USE INHALATION SCH ×4 (02:45→21:58)
[2021-05-11] MEDS: IPRATROPIUM/ALBUTEROL SULFATE 3 ML AMPUL.NEB IH SCH ×4 (02:45→21:58)
[2021-05-11] MEDS: hydrALAZINE 25 MG TAB PO SCH ×3 (05:18→21:51)
[2021-05-11 05:19] LABS: Hemoglobin 6.9 gm/dl (10.1-14.3); Mean Corpuscular HGB Conc 33 % (30-34); Mean Corpuscular Volume 93 fl (79-97); Platelet Count 168 K/mm3 (140-440); Red Blood Count 2.26 M/mm3 (3.65-5.03); Red Cell Distribution Width 17.7 % (13.2-15.2)
[2021-05-11 05:30] LABS: Calcium 9.2 mg/dL (8.4-10.2)
[2021-05-11] MEDS: INSULIN LISPRO 100 UNIT/ML SUB-Q SCH ×3 (05:43→21:49)
[2021-05-11] MEDS: LEVOTHYROXINE 100 MCG INJ IV SCH (08:35)
--- NOTE | 2021-05-11 08:35 | Progress Note ---
<CLAYZachARSatnam - Last Filed: 05/11/21 15:03> Assessment and Plan Assessment and plan: This is a 89-year-old female HTN, legally blind, nicotine abuse, [place] and recent UTI initially admitted for bradycardia and AMS. Patient subsequently PEA arrested with ROSC in the ED was intubated and placed on ventilatory support. T dee was taken to [facility] for emergent transvenous pacemaker placement by Cardio. Assessment and Plan Symptomatic bradycardia, s/p PEA arrest, cardiogenic shock, h/o hypertension -S/p transvenous pacemaker (05/02-05/07) -Cardiology consulted, appreciate recommendations -S/p atropine with transient response-> PEA arrest -S/p dopamine drip -05/02 echocardiogram shows EF of 65 to 70% -Started on p.o. hydralazine for hypertension -Blood pressure monitor per protocol Acute hypoxic respiratory failure -Intubated on 05/02 and extubated 05/08 with a 7.00 ETT at 22 at the lips -Noted to have increased work of breathing and reintubated on 05/08 with 7.50 ETT at -CCM consulted, appreciate recommendations -A.m. vent settings AC rate 20, tidal volume 400, PEEP 8, FiO2 30% -See RT notes for titration -CPAP trial -ABG and CXR per [facility] -VAP bundle -Continuous SPO2 monitoring -Started on steroids due to angioedema Severe COVID-19 pneumonia -CXR showed diffuse bilateral infiltrates, hypoxia on admission -Infectious disease consulted, appreciate recommendations -s/p Dexamethasone for 10 days -s/p cefepime for 5 days -Anticoagulation per protocol -Trend COVID-19 inflammatory markers -Droplet/isolation precautions Acute metabolic encephalopathy, h/o legally blind -Avoid delirium -Maintain sleep-wake cycle -Sedated with fentanyl -RASS goal 0 to -1 -Started on Seroquel -dose increased Severe constipation, transaminitis -24 hours -312 mL -No BM recorded since admit -ducolax suppository given with no response -04/14 25 KUB shows constipation -bm 05/10 -BR: Colace, Senokot -PPI -Trend LFT Thrombocytopenia, anemia, leukopenia (resolved) -HIT panel pending -Platelets noted 73 K 05/06 Now slowly improving -SCD to bilateral lower extremity while in bed -Trend CBC -Transfuse hemoglobin less than 7 -Hold chemical anticoagulation for now Sick thyroid syndrome -Levothyroxine -TSH 10.35, free T4 0.61 -Repeat TSH 9.9/FT 4 0.61 The high probability of a clinically significant, sudden or life threatening deterioration of the [multi] system(s) required my full and direct attention, intervention and personal management. The aggregate critical care time was [60] minutes. This time is in addition to time spent performing reported procedures but includes the following: [x] Data Review and interpretation [x] Patient assessment and monitoring of vital signs [x] Documentation [x] Medication orders and management Disposition Plan: icu Total Time Spent with Patient (Minutes): 60 History Interval history: This is a 89-year-old female with hypertension, legally blind, recent UTI, nicotine abuse hard of hearing who presented to the emergency department on 05/02 with AMS, decreased p.o. of note, bradycardia via EMS. Per family patient has been exhibiting mumbling/hallucination/strange paranoid behavior approximately 2 weeks prior to presentation and was seen by her PCP who noticed that her blood pressure was extremely elevated in the office documented systolic of 240 and she was treated for high blood pressure and UTI at that time. She improved after this per family but subsequently worsened and request to same behavior exhibited 2 weeks ago and became unresponsive prior to arrival. Per EMS patient was noted to be bradycardic to 38 bpm and given atropine with improvement in heart rate to 65 however the patient shortly thereafter bradyed down to 45 bpm. In the emergency department patient was confused. The emergency department patient lost a pulse and went into PEA arrest and ACLS was initiated by ED staff and ROSC was achieved after 1 round of epinephrine. Patient was taken immediately to the [facility] by cardiology for transvenous pacemaker placement and was intubated. Patient was admitted to the hospitalist service with symptomatic bradycardia, s/p cardiac arrest, acute hypoxic respiratory failure, cardiogenic shock, electrode imbalances, hypothermia, acute metabolic encephalopathy, euthyroid sick syndrome, transaminitis with consults to cardiology, pulmonology and eventually infectious disease. Hospital Course to Date: 05/03: s/p cardiac arrest, remains unresponsive, not on any sedation. +gag/cough and corneal reflex, pending CT head/brain. Patient H&H also dropped this am, 1unit of PRBCs ordered. Hyperkalemia was treated per protoocl, repeat BMP at 1600. BR was initiated for severe constipation, TF was initiated. 05/04: Patient is awake this am, following simple commands. Off dopamine gtt and Transvenous pacer at a back rate of 60. COVID PCR +, patient is on IV Abx and IV steroids. Awaiting cardio recommendation, if no plan for PPM insertion, plan for PST for possible extubation. 05/05: On sedation this am due to increase agitation. Patient failed SAT this am. 1unit ordered for low H&H this am with worsening in thrombocytopenia, AC held and stool occult ordered. Transvenous pacer still present at a back up rate of 50, patient SR on the monitor this am, HR in the 60s. Plan for possible TVP removal tomorrow by Cardio. 05/06: Patient tried on PSV today, hydralazine p.o. for hypertension (initial DCCV but discontinued due to transvenous pacemaker in place), HIT panel ordered. 05/07: Transvenous catheter removed by cardiology, placed on SBT. Head still pending. Repeat thyroid studies show slight improvement. No acute events reported overnight. Home Norvasc changed to hydralazine today 05/08: Added Seroquel per CCM, systemic steroids started for laryngeal edema and patient started on IV Lasix for 3 days. Drop in H/H from 8.2/24.7-7.7/24 noted, will repeat CBC in the a.m. Thrombocytopenia has improved. Patient was extubated yesterday afternoon however she had to be reintubated late evening due to increased work of breathing. Given Dulcolax suppository today 05/09: Continue Seroquel, begin scopolamine for secretion control, CCM and vent changes and will continue Lasix for 1 more day. Given mag citrate 05/10: Patient on CPAP trial, started on Robinul and Mucomyst, CCM will continue Lasix for 2 more days and Seroquel increased to 25 mg due to agitation. Hospitalist Physical - Physical exam Narrative exam: General appearance: Present: no acute distress, other (Intubated and sedated) - EENT Eyes: Present: PERRL, EOM intact ENT: hearing intact, clear oral mucosa, dentition normal - Neck Neck: Present: normal ROM - Respiratory Respiratory effort: normal Respiratory: bilateral: diminished - Cardiovascular Rhythm: regular Heart Sounds: Present: S1 & S2 - Extremities Extremities: no ischemia, pulses intact, pulses symmetrical, No edema, normal temperature, normal color Peripheral Pulses: within normal limits - Abdominal General gastrointestinal: soft, non-tender, non-distended, normal bowel sounds - Integumentary Integumentary: Present: warm, dry - Psychiatric Psychiatric: cooperative - Neurologic Neurologic: CNII-XII intact, moves all extremities - Allied Health Allied health notes reviewed: nursing, RT, social work - Constitutional Vitals: Temp Pulse Resp BP Pulse Ox 99.3 F 72 18 115/48 98 05/11/21 03:58 05/11/21 08:31 05/11/21 04:00 05/11/21 08:31 05/11/21 08:31 General appearance: Present: no acute distress, other (Intubated and sedated) HEART Score - HEART Score Troponin: Troponin T < 0.010 ng/mL (0.00-0.029) 05/02/21 05:16 Results - Labs CBC & Chem 7: 05/11/21 04:43 05/11/21 04:43 Labs: Laboratory Last Values WBC 7.2 K/mm3 (4.5-11.0) 05/11/21 04:43 RBC 2.26 M/mm3 (3.65-5.03) L 05/11/21 04:43 Hgb 6.9 gm/dl (10.1-14.3) L 05/11/21 04:43 Hct 21.0 % (30.3-42.9) L 05/11/21 04:43 MCV 93 fl (79-97) 05/11/21 04:43 MCH 31 pg (28-32) 05/11/21 04:43 MCHC 33 % (30-34) 05/11/21 04:43 RDW 17.7 % (13.2-15.2) H 05/11/21 04:43 Plt Count 168 K/mm3 (140-440) 05/11/21 04:43 Lymph % (Auto) 10.4 % (13.4-35.0) L 05/04/21 09:41 [place] % (Auto) 4.9 % (0.0-7.3) 05/04/21 09:41 Eos % (Auto) 0.0 % (0.0-4.3) 05/04/21 09:41 Baso % (Auto) 0.0 % (0.0-1.8) 05/04/21 09:41 Lymph # (Auto) 0.6 K/mm3 (1.2-5.4) L 05/04/21 09:41 [place] # (Auto) 0.3 K/mm3 (0.0-0.8) 05/04/21 09:41 Eos # (Auto) 0.0 K/mm3 (0.0-0.4) 05/04/21 09:41 Baso # (Auto) 0.0 K/mm3 (0.0-0.1) 05/04/21 09:41 Add Manual Diff Complete 05/03/21 04:52 Total Counted 100 05/03/21 04:52 Seg Neutrophils % 84.7 % (40.0-70.0) H 05/04/21 09:41 Seg Neuts % (Manual) 86.0 % (40.0-70.0) H 05/03/21 04:52 Band Neutrophils % 8.0 % 05/03/21 04:52 Lymphocytes % (Manual) 3.0 % (13.4-35.0) L 05/03/21 04:52 Reactive Lymphs % (Man) 0 % 05/03/21 04:52 Monocytes % (Manual) 2.0 % (0.0-7.3) 05/03/21 04:52 Eosinophils % (Manual) 1.0 % (0.0-4.3) 05/03/21 04:52 Basophils % (Manual) 0 % (0.0-1.8) 05/03/21 04:52 Metamyelocytes % 0 % 05/03/21 04:52 Myelocytes % 0 % 05/03/21 04:52 Promyelocytes % 0 % 05/03/21 04:52 Blast Cells % 0 % 05/03/21 04:52 Nucleated RBC % Not Reportable 05/03/21 04:52 Seg Neutrophils # 4.6 K/mm3 (1.8-7.7) 05/04/21 09:41 Seg Neutrophils # Man 3.9 K/mm3 (1.8-7.7) 05/03/21 04:52 Band Neutrophils # 0.4 K/mm3 05/03/21 04:52 Lymphocytes # (Manual) 0.1 K/mm3 (1.2-5.4) L 05/03/21 04:52 Abs React Lymphs (Man) 0.0 K/mm3 05/03/21 04:52 Monocytes # (Manual) 0.1 K/mm3 (0.0-0.8) 05/03/21 04:52 Eosinophils # (Manual) 0.0 K/mm3 (0.0-0.4) 05/03/21 04:52 Basophils # (Manual) 0.0 K/mm3 (0.0-0.1) 05/03/21 04:52 Metamyelocytes # 0.0 K/mm3 05/03/21 04:52 Myelocytes # 0.0 K/mm3 05/03/21 04:52 Promyelocytes # 0.0 K/mm3 05/03/21 04:52 Blast Cells # 0.0 K/mm3 05/03/21 04:52 WBC Morphology Not Reportable 05/03/21 04:52 Hypersegmented Neuts Not Reportable 05/03/21 04:52 Hyposegmented Neuts Not Reportable 05/03/21 04:52 Hypogranular Neuts Not Reportable 05/03/21 04:52 Smudge Cells Not Reportable 05/03/21 04:52 Toxic Granulation Not Reportable 05/03/21 04:52 Toxic Vacuolation Not Reportable 05/03/21 04:52 Dohle Bodies Not Reportable 05/03/21 04:52 Pelger-Huet Anomaly Not Reportable 05/03/21 04:52 Shanti Rods Not Reportable 05/03/21 04:52 Platelet Estimate Consistent w auto 05/03/21 04:52 Clumped Platelets Not Reportable 05/03/21 04:52 Plt Clumps, EDTA Not Reportable 05/03/21 04:52 Large Platelets Not Reportable 05/03/21 04:52 Giant Platelets Not Reportable 05/03/21 04:52 Platelet Satelliting Not Reportable 05/03/21 04:52 Plt Morphology Comment Not Reportable 05/03/21 04:52 RBC Morphology Not Reportable 05/03/21 04:52 Dimorphic RBCs Not Reportable 05/03/21 04:52 Polychromasia Not Reportable 05/03/21 04:52 Hypochromasia 2+ 05/03/21 04:52 Poikilocytosis Not Reportable 05/03/21 04:52 Anisocytosis 1+ 05/03/21 04:52 Microcytosis Not Reportable 05/03/21 04:52 Macrocytosis Few 05/03/21 04:52 Spherocytes Not Reportable 05/03/21 04:52 Pappenheimer Bodies Not Reportable 05/03/21 04:52 Sickle Cells Not Reportable 05/03/21 04:52 Target Cells Not Reportable 05/03/21 04:52 Tear Drop Cells Not Reportable 05/03/21 04:52 Ovalocytes Few 05/03/21 04:52 Helmet Cells Not Reportable 05/03/21 04:52 [place] Bodies Not Reportable 05/03/21 04:52 [place] Rings Not Reportable 05/03/21 04:52 Jossue Cells Not Reportable 05/03/21 04:52 Bite Cells Not Reportable 05/03/21 04:52 Crenated Cell Not Reportable 05/03/21 04:52 Elliptocytes Not Reportable 05/03/21 04:52 Acanthocytes (Spur) Not Reportable 05/03/21 04:52 Rouleaux Not Reportable 05/03/21 04:52 Hemoglobin C Crystals Not Reportable 05/03/21 04:52 Schistocytes Not Reportable 05/03/21 04:52 Malaria parasites Not Reportable 05/03/21 04:52 Anatoly Bodies Not Reportable 05/03/21 04:52 Hem Pathologist Commnt No 05/03/21 04:52 PT 15.1 Sec. (12.2-14.9) H 05/02/21 05:16 INR 1.07 (0.87-1.13) 05/02/21 05:16 APTT 41.7 Sec. (24.2-36.6) H 05/02/21 05:16 D-Dimer 2342.13 ng/mlDDU (0-234) H 05/09/21 06:47 Heparin Anti-Xa, Unfract Negative (Negative) 05/06/21 14:14 ABG pH 7.464 pH Units (7.350-7.450) H 05/10/21 15:12 ABG pCO2 49.5 mm Hg 05/10/21 15:12 ABG pO2 77.1 mm Hg (80.0-90.0) L 05/10/21 15:12 ABG HCO3 34.7 mmol/L (20.0-26.0) H 05/10/21 15:12 ABG O2 Saturation 97.1 % (95.0-99.0) 05/10/21 15:12 ABG O2 Content 6.2 (0.0-44) 05/10/21 15:12 ABG Base Excess 10.2 mmol/L (-2.0-3.0) H 05/10/21 15:12 ABG Hemoglobin 9.4 gm/dl (12.0-16.0) L 05/10/21 15:12 ABG Carboxyhemoglobin 1.6 % (0.0-5.0) 05/10/21 15:12 ABG Methemoglobin 0.4 % (0.0-1.5) 05/10/21 15:12 Oxyhemoglobin 95.1 % (95.0-99.0) 05/10/21 15:12 FiO2 35 % 05/10/21 15:12 Sodium 132 mmol/L (137-145) L D 05/11/21 04:43 Potassium 5.1 mmol/L (3.6-5.0) H 05/11/21 04:43 Chloride 95.1 mmol/L (98-107) L 05/11/21 04:43 Carbon Dioxide 31 mmol/L (22-30) H 05/11/21 04:43 Anion Gap 11 mmol/L 05/11/21 04:43 BUN 46 mg/dL (7-17) H 05/11/21 04:43 Creatinine 1.2 mg/dL (0.6-1.2) 05/11/21 04:43 Estimated GFR 51 ml/min 05/11/21 04:43 BUN/Creatinine Ratio 38 % 05/11/21 04:43 Glucose 135 mg/dL (65-100) H 05/11/21 04:43 POC Glucose 122 mg/dL (70-105) H 05/11/21 07:47 Lactic Acid 0.80 mmol/L (0.7-2.0) 05/02/21 05:53 Calcium 9.2 mg/dL (8.4-10.2) 05/11/21 04:43 Phosphorus 2.90 mg/dL (2.5-4.5) D 05/06/21 04:56 Magnesium 2.70 mg/dL (1.7-2.3) H 05/11/21 04:43 Ferritin 500.1 ng/mL (10.0-200.0) H 05/09/21 06:47 Total Bilirubin 0.20 mg/dL (0.1-1.2) 05/09/21 13:16 Direct Bilirubin < 0.2 mg/dL (0-0.2) 05/09/21 13:16 Indirect Bilirubin 0.0 mg/dL 05/09/21 13:16 AST 28 units/L (5-40) 05/09/21 13:16 ALT 37 units/L (7-56) 05/09/21 13:16 Alkaline Phosphatase 100 units/L (35-129) 05/09/21 13:16 Lactate Dehydrogenase 212 units/L (91-180) H 05/09/21 06:47 Total Creatine Kinase 189 units/L (30-135) H 05/02/21 05:53 Troponin T < 0.010 ng/mL (0.00-0.029) 05/02/21 05:16 C-Reactive Protein 12.90 mg/dL (0.00-1.30) H 05/09/21 06:47 NT-Pro-B Natriuret Pep 341.7 pg/mL (0-900) 05/02/21 05:17 Total Protein 8.3 g/dL (6.3-8.2) H 05/09/21 13:16 Albumin 2.6 g/dL (3.9-5) L 05/09/21 13:16 Albumin/Globulin Ratio 0.5 % 05/09/21 13:16 Triglycerides 62 mg/dL (2-149) 05/07/21 04:34 Procalcitonin 0.74 ng/mL (<0.15) 05/03/21 04:52 TSH 9.910 mlU/mL (0.270-4.200) H 05/07/21 04:34 Free T4 0.61 ng/dL (0.76-1.46) L 05/07/21 04:34 Heparin-induced Plt Ab Negative (Negative) 05/06/21 14:14 UF Heparin High Dose 0 % Release 05/06/21 14:14 ALEXEY UFH Low Dose 0.1 0 % Release 05/06/21 14:14 ALEXEY UFH Low Dose 0.5 0 % Release 05/06/21 14:14 Coronavirus (PCR) Positive (Negative) A 05/03/21 Unknown Blood Type O POSITIVE 05/03/21 14:13 Antibody Screen Negative 05/03/21 14:13 Crossmatch See Detail 05/03/21 14:13 Peoples/IV: Voiding Method Indwelling Catheter Active Medications - Current Medications Current Medications: Generic Name Dose Route Start Last Admin Trade Name Freq PRN Reason Stop Dose Admin Acetaminophen 650 mg 05/02/21 08:59 Acetaminophen 325 Mg/10.15 Ml Oral Liqd Unit Dose FEEDTUBE Q6H PRN Pain MILD(1-3)/Fever >100.5/[place] Acetylcysteine 200 mg 05/10/21 20:00 05/11/21 02:45 Acetylcysteine 20% 200 Mg/1 Ml *For Inhalation Use* INHALATION 200 mg Q6HRT JHON Administration Albuterol/Ipratropium 1 ampul 05/04/21 08:00 05/11/21 02:45 Ipratropium/Albuterol Sulfate 3 Ml Ampul.Neb IH 1 ampul TIDRT JHON Administration Budesonide 0.5 mg 05/02/21 10:00 05/10/21 21:02 Budesonide 0.5 Mg/2 Ml Nebu IH Not Given Q12HRT JHON Dexamethasone 6 mg 05/07/21 10:00 05/10/21 09:53 Dexamethasone 4 Mg/Ml Vial IV 05/12/21 10:01 6 mg Q24HR JHON Administration Dextrose 0 ml 05/03/21 11:20 05/07/21 05:45 Dextrose 10% *Hypoglycemia IV 50 ml PRN PRN Administration Hypoglycemia Docusate Sodium 100 mg 05/03/21 12:00 05/10/21 21:06 Docusate Sodium 100 Mg/10 Ml Oral Liqd PO 100 mg BID JHON Administration Famotidine 10 mg 05/06/21 22:00 05/10/21 21:06 Famotidine 10 Mg Tab FEEDTUBE 10 mg BID JHON Administration Fentanyl 50 mcg 05/03/21 11:30 05/04/21 18:18 Fentanyl 100 Mcg/2 Ml Inj IV 50 mcg Q10MIN PRN Administration ANALGESIA Furosemide 20 mg 05/11/21 15:00 Furosemide 20 Mg/2 Ml Inj IV 05/12/21 10:01 QDAY [facility] Glycopyrrolate 1 mg 05/10/21 20:00 05/10/21 21:05 Glycopyrrolate 1 Mg Tab PO 1 mg TID [facility] Administration Hydralazine HCl 25 mg 05/06/21 22:00 05/11/21 05:18 Hydralazine 25 Mg Tab PO 25 mg Q8HR [facility] Administration Hydralazine HCl 10 mg 05/07/21 19:25 05/09/21 23:10 Hydralazine 20 Mg/1 Ml Inj IV 10 mg Q4HR PRN Administration Hypertension Hydrophilic Ointment 1 applic 05/07/21 20:35 Lip Therapy Vaseline TP Q2HR PRN Dry Lips NORepinephrine/NS 8 MG-250 ML 8 mg in 250 mls @ 3.75 mls/hr 05/02/21 10:00 Norepinephrine/Ns 8 Mg-250 Ml (Double Conc) IV TITRATE [facility] Protocol 2 MCG/MIN Fentanyl Citrate 2,000 mcg in 100 mls @ 2.397 mls/hr 05/03/21 12:00 05/10/21 13:48 Fentanyl Drip Premix IV 1 mcg/kg/hr TITR JHON 2.397 mls/hr Administration Protocol 1 MCG/KG/HR Propofol 1,000 mg in 100 mls @ 1.438 mls/hr 05/04/21 22:00 05/08/21 06:17 Diprivan 10 Mg/Ml IV 0 mcg/kg/min TITR JHON 0 mls/hr Titration Protocol 5 MCG/KG/MIN Insulin Human Lispro 0 unit 05/09/21 00:00 05/11/21 05:43 Insulin Lispro 100 Unit/Ml SUB-Q Not Given Q6HR [facility] Protocol Levothyroxine Sodium 25 mcg 05/02/21 06:00 05/10/21 06:17 Levothyroxine 100 Mcg Inj IV 25 mcg DAILY@0600 [facility] Administration Multi-Ingred Cream/Lotion/Oil/Oint 1 applic 05/07/21 20:35 Mineral Oil/Petrolatum, White Ophth Oint 3.5 Gm OU Q4HR PRN Dry Eye(s) Ondansetron HCl 4 mg 05/02/21 08:59 Ondansetron 4 Mg/2 Ml Inj IV Q8H PRN Nausea And Vomiting Polyethylene Glycol 17 gm 05/03/21 12:00 05/10/21 09:52 Polyethylene Glycol 3350 17 Gm Powder PO 17 gm QDAY JHON Administration Quetiapine Fumarate 100 mg 05/10/21 15:00 05/10/21 21:06 Quetiapine 100 Mg Tab PO 100 mg BID JHON Administration Quetiapine Fumarate 50 mg 05/10/21 16:00 05/10/21 21:07 Quetiapine 25 Mg Tab PO 50 mg BID JHON Administration Scopolamine 1 each 05/09/21 14:00 05/09/21 14:51 Scopolamine Transdermal Patch 72 Hr TD 1 each Q3D JHON Administration Senna/Docusate Sodium 1 tab 05/07/21 22:00 05/10/21 21:06 Sennosides/Docusate Sodium 8.6/50 Mg Tab FEEDTUBE 1 tab BID JHON Administration Sodium Chloride 10 ml 05/02/21 10:00 05/10/21 21:07 Sodium Chloride 0.9% 10 Ml Flush Syringe IV 10 ml BID JHON Administration Sodium Chloride 10 ml 05/02/21 08:59 Sodium Chloride 0.9% 10 Ml Flush Syringe IV PRN PRN LINE FLUSH Sodium Chloride 10 ml 05/06/21 09:58 05/08/21 21:30 Sodium Chloride 0.9% 50 Ml Ivpb IV 10 ml PRN PRN Administration FLUSH Nutrition/Malnutrition Assess - Dietary Evaluation Nutrition/Malnutrition Findings: Nutrition Notes Start: 05/03/21 14:27 Freq: Status: Active Protocol: Document 05/08/21 09:54 NATHALIE (Rec: 05/08/21 10:21 NATHALIE [id number]) Nutrition Notes Initial or Follow up Reassessment Current Diagnosis Hypertension,Respiratory Failure Other Pertinent Diagnosis COVID-19, Pneumonia, Bradycardia/PEA arrest, Constipation, Transaminitis, M Current Diet TF-Osmolite 1.5 Nando @ 40 ml/hr (since L 05/08). Labs/Tests 05/07: BUN 25. Pertinent Medications 05/08: Levothyroxine, others nutritionally unremarkable. Height 5 ft 6 in Weight 47.94 kg [place] Body Weight (kg) 59.09 BMI 17.0 Weight change and time frame No body weight changed in 2 days reported. Weight Status Underweight Subjective/Other Information RD consult for write/manage TF . Pt was extubated 05/07, and reintubated later, due to respiratory distress. TF prescription resumed. Percent of energy/protein needs met: Prescribed Osmolite 1.5 Nando @ 40 ml/hr provides for energy/ protein needs (1440 Kcal/60 g) during LOS, 100% Kcal; 100%AA . Burn Absent Trauma Absent GI Symptoms Constipation Food Allergy No Skin Integrity/Comment No skin breakdown reported Current % PO Other Minimum of two criteria No #1 Nutrition Diagnosis Inadequate oral intake Diagnosis Progress(for reassessment Continues documentation) Is patient on ventilator? Yes Is Patient Ambulatory and/or Out of Bed No REE-([facility]-confined to bed) 1119.252 Kcal/Kg value to use for calculation 30 Approximate Energy Requirements Using 1438 kcal/Kg Calculation Used for Recommendations 70-80% of EEN Additional Notes 15-20 Kcal/Kg ABW. Protein: 1.2-2 g/Kg; 58-96 g/ day. Fluids: 1 ml/Kcal, or as per MD. Nutrition Intervention Nutrition Support: Resume Osmolite 1.5 Nando @ 40 ml/hr. Flush: 120 ml water Q 4 hr, or as per MD. Kcal 1,440 Protein (gm) 60 Carbohydrates (gm) 195 Fat (gm) 47 Fluid (mL) 732 Fiber (gm) 0 % RDI: 100% Kcal; 100%AA. Goal #1 Provide at least 75% of energy /protein needs through Enteral Feeding during LOS. Goal #2 Maintain body weight within +/ -3% of admission body weight during LOS. Follow-Up By: 05/13/21 Additional Comments Continue monitoring TF tolerance and BM. <АННА GARCIA - Last Filed: 05/16/21 13:14> Assessment and Plan Assessment and plan: I saw and evaluated the patient. Discussed with the nurse practitioner and agree with their findings and plan as documented in this note. Hospitalist Physical - Constitutional Vitals: Temp Pulse Resp BP Pulse Ox 97.9 F 66 12 157/71 70 L 05/14/21 12:00 05/14/21 14:00 05/14/21 14:00 05/14/21 14:00 05/14/21 14:38 HEART Score - HEART Score Troponin: Troponin T < 0.010 ng/mL (0.00-0.029) 05/02/21 05:16 Results - Labs CBC & Chem 7: 05/14/21 05:15 05/14/21 05:15 Labs: Laboratory Last Values WBC 6.5 K/mm3 (4.5-11.0) 05/14/21 05:15 RBC 2.73 M/mm3 (3.65-5.03) L 05/14/21 05:15 Hgb 7.9 gm/dl (10.1-14.3) L 05/14/21 05:15 Hct 25.0 % (30.3-42.9) L 05/14/21 05:15 MCV 92 fl (79-97) 05/14/21 05:15 MCH 29 pg (28-32) 05/14/21 05:15 MCHC 32 % (30-34) 05/14/21 05:15 RDW 17.0 % (13.2-15.2) H 05/14/21 05:15 Plt Count 295 K/mm3 (140-440) 05/14/21 05:15 Lymph % (Auto) 10.4 % (13.4-35.0) L 05/04/21 09:41 [place] % (Auto) 4.9 % (0.0-7.3) 05/04/21 09:41 Eos % (Auto) 0.0 % (0.0-4.3) 05/04/21 09:41 Baso % (Auto) 0.0 % (0.0-1.8) 05/04/21 09:41 Lymph # (Auto) 0.6 K/mm3 (1.2-5.4) L 05/04/21 09:41 [place] # (Auto) 0.3 K/mm3 (0.0-0.8) 05/04/21 09:41 Eos # (Auto) 0.0 K/mm3 (0.0-0.4) 05/04/21 09:41 Baso # (Auto) 0.0 K/mm3 (0.0-0.1) 05/04/21 09:41 Add Manual Diff Complete 05/03/21 04:52 Total Counted 100 05/03/21 04:52 Seg Neutrophils % 84.7 % (40.0-70.0) H 05/04/21 09:41 Seg Neuts % (Manual) 86.0 % (40.0-70.0) H 05/03/21 04:52 Band Neutrophils % 8.0 % 05/03/21 04:52 Lymphocytes % (Manual) 3.0 % (13.4-35.0) L 05/03/21 04:52 Reactive Lymphs % (Man) 0 % 05/03/21 04:52 Monocytes % (Manual) 2.0 % (0.0-7.3) 05/03/21 04:52 Eosinophils % (Manual) 1.0 % (0.0-4.3) 05/03/21 04:52 Basophils % (Manual) 0 % (0.0-1.8) 05/03/21 04:52 Metamyelocytes % 0 % 05/03/21 04:52 Myelocytes % 0 % 05/03/21 04:52 Promyelocytes % 0 % 05/03/21 04:52 Blast Cells % 0 % 05/03/21 04:52 Nucleated RBC % Not Reportable 05/03/21 04:52 Seg Neutrophils # 4.6 K/mm3 (1.8-7.7) 05/04/21 09:41 Seg Neutrophils # Man 3.9 K/mm3 (1.8-7.7) 05/03/21 04:52 Band Neutrophils # 0.4 K/mm3 05/03/21 04:52 Lymphocytes # (Manual) 0.1 K/mm3 (1.2-5.4) L 05/03/21 04:52 Abs React Lymphs (Man) 0.0 K/mm3 05/03/21 04:52 Monocytes # (Manual) 0.1 K/mm3 (0.0-0.8) 05/03/21 04:52 Eosinophils # (Manual) 0.0 K/mm3 (0.0-0.4) 05/03/21 04:52 Basophils # (Manual) 0.0 K/mm3 (0.0-0.1) 05/03/21 04:52 Metamyelocytes # 0.0 K/mm3 05/03/21 04:52 Myelocytes # 0.0 K/mm3 05/03/21 04:52 Promyelocytes # 0.0 K/mm3 05/03/21 04:52 Blast Cells # 0.0 K/mm3 05/03/21 04:52 WBC Morphology Not Reportable 05/03/21 04:52 Hypersegmented Neuts Not Reportable 05/03/21 04:52 Hyposegmented Neuts Not Reportable 05/03/21 04:52 Hypogranular Neuts Not Reportable 05/03/21 04:52 Smudge Cells Not Reportable 05/03/21 04:52 Toxic Granulation Not Reportable 05/03/21 04:52 Toxic Vacuolation Not Reportable 05/03/21 04:52 Dohle Bodies Not Reportable 05/03/21 04:52 Pelger-Huet Anomaly Not Reportable 05/03/21 04:52 Shanti Rods Not Reportable 05/03/21 04:52 Platelet Estimate Consistent w auto 05/03/21 04:52 Clumped Platelets Not Reportable 05/03/21 04:52 Plt Clumps, EDTA Not Reportable 05/03/21 04:52 Large Platelets Not Reportable 05/03/21 04:52 Giant Platelets Not Reportable 05/03/21 04:52 Platelet Satelliting Not Reportable 05/03/21 04:52 Plt Morphology Comment Not Reportable 05/03/21 04:52 RBC Morphology Not Reportable 05/03/21 04:52 Dimorphic RBCs Not Reportable 05/03/21 04:52 Polychromasia Not Reportable 05/03/21 04:52 Hypochromasia 2+ 05/03/21 04:52 Poikilocytosis Not Reportable 05/03/21 04:52 Anisocytosis 1+ 05/03/21 04:52 Microcytosis Not Reportable 05/03/21 04:52 Macrocytosis Few 05/03/21 04:52 Spherocytes Not Reportable 05/03/21 04:52 Pappenheimer Bodies Not Reportable 05/03/21 04:52 Sickle Cells Not Reportable 05/03/21 04:52 Target Cells Not Reportable 05/03/21 04:52 Tear Drop Cells Not Reportable 05/03/21 04:52 Ovalocytes Few 05/03/21 04:52 Helmet Cells Not Reportable 05/03/21 04:52 [place] Bodies Not Reportable 05/03/21 04:52 [place] Rings Not Reportable 05/03/21 04:52 Arnett Cells Not Reportable 05/03/21 04:52 Bite Cells Not Reportable 05/03/21 04:52 Crenated Cell Not Reportable 05/03/21 04:52 Elliptocytes Not Reportable 05/03/21 04:52 Acanthocytes (Spur) Not Reportable 05/03/21 04:52 Rouleaux Not Reportable 05/03/21 04:52 Hemoglobin C Crystals Not Reportable 05/03/21 04:52 Schistocytes Not Reportable 05/03/21 04:52 Malaria parasites Not Reportable 05/03/21 04:52 Anatoly Bodies Not Reportable 05/03/21 04:52 Hem Pathologist Commnt No 05/03/21 04:52 PT 15.1 Sec. (12.2-14.9) H 05/02/21 05:16 INR 1.07 (0.87-1.13) 05/02/21 05:16 APTT 41.7 Sec. (24.2-36.6) H 05/02/21 05:16 D-Dimer 2342.13 ng/mlDDU (0-234) H 05/09/21 06:47 Heparin Anti-Xa, Unfract Negative (Negative) 05/06/21 14:14 ABG pH 7.502 pH Units (7.350-7.450) H 05/12/21 08:25 ABG pCO2 45.2 mm Hg 05/12/21 08:25 ABG pO2 223.9 mm Hg (80.0-90.0) H 05/12/21 08:25 ABG HCO3 34.6 mmol/L (20.0-26.0) H 05/12/21 08:25 ABG O2 Saturation 99.4 % (95.0-99.0) H 05/12/21 08:25 ABG O2 Content 7.9 (0.0-44) 05/12/21 08:25 ABG Base Excess 10.5 mmol/L (-2.0-3.0) H 05/12/21 08:25 ABG Hemoglobin 5.3 gm/dl (12.0-16.0) L 05/12/21 08:25 ABG Carboxyhemoglobin 1.8 % (0.0-5.0) 05/12/21 08:25 ABG Methemoglobin 0.5 % (0.0-1.5) 05/12/21 08:25 Oxyhemoglobin 97.1 % (95.0-99.0) 05/12/21 08:25 FiO2 40 % 05/12/21 08:25 Sodium 142 mmol/L (137-145) 05/14/21 05:15 Potassium 4.2 mmol/L (3.6-5.0) 05/14/21 05:15 Chloride 100.2 mmol/L (98-107) 05/14/21 05:15 Carbon Dioxide 31 mmol/L (22-30) H 05/14/21 05:15 Anion Gap 15 mmol/L 05/14/21 05:15 BUN 40 mg/dL (7-17) H 05/14/21 05:15 Creatinine 0.9 mg/dL (0.6-1.2) 05/14/21 05:15 Estimated GFR > 60 ml/min 05/14/21 05:15 BUN/Creatinine Ratio 44 % 05/14/21 05:15 Glucose 114 mg/dL (65-100) H 05/14/21 05:15 POC Glucose 113 mg/dL (70-105) H 05/14/21 11:48 Lactic Acid 0.80 mmol/L (0.7-2.0) 05/02/21 05:53 Calcium 9.4 mg/dL (8.4-10.2) 05/14/21 05:15 Phosphorus 2.90 mg/dL (2.5-4.5) D 05/06/21 04:56 Magnesium 2.70 mg/dL (1.7-2.3) H 05/11/21 04:43 Ferritin 500.1 ng/mL (10.0-200.0) H 05/09/21 06:47 Total Bilirubin 0.20 mg/dL (0.1-1.2) 05/09/21 13:16 Direct Bilirubin < 0.2 mg/dL (0-0.2) 05/09/21 13:16 Indirect Bilirubin 0.0 mg/dL 05/09/21 13:16 AST 28 units/L (5-40) 05/09/21 13:16 ALT 37 units/L (7-56) 05/09/21 13:16 Alkaline Phosphatase 100 units/L (35-129) 05/09/21 13:16 Lactate Dehydrogenase 212 units/L (91-180) H 05/09/21 06:47 Total Creatine Kinase 189 units/L (30-135) H 05/02/21 05:53 Troponin T < 0.010 ng/mL (0.00-0.029) 05/02/21 05:16 C-Reactive Protein 12.90 mg/dL (0.00-1.30) H 05/09/21 06:47 NT-Pro-B Natriuret Pep 341.7 pg/mL (0-900) 05/02/21 05:17 Total Protein 8.3 g/dL (6.3-8.2) H 05/09/21 13:16 Albumin 2.6 g/dL (3.9-5) L 05/09/21 13:16 Albumin/Globulin Ratio 0.5 % 05/09/21 13:16 Triglycerides 62 mg/dL (2-149) 05/07/21 04:34 Serotonin Release Assay See scanned result 05/06/21 14:14 Procalcitonin 0.74 ng/mL (<0.15) 05/03/21 04:52 TSH 9.910 mlU/mL (0.270-4.200) H 05/07/21 04:34 Free T4 0.61 ng/dL (0.76-1.46) L 05/07/21 04:34 Heparin-induced Plt Ab Negative (Negative) 05/06/21 14:14 UF Heparin High Dose 0 % Release 05/06/21 14:14 ALEXEY UFH Low Dose 0.1 0 % Release 05/06/21 14:14 ALEXEY UFH Low Dose 0.5 0 % Release 05/06/21 14:14 Coronavirus (PCR) Positive (Negative) A 05/03/21 Unknown Blood Type O POSITIVE 05/11/21 17:20 Antibody Screen Negative 05/11/21 17:20 Crossmatch See Detail 05/11/21 17:20 Peoples/IV: Voiding Method Incontinent Nutrition/Malnutrition Assess - Dietary Evaluation Nutrition/Malnutrition Findings: Nutrition Notes Start: 05/03/21 14:27 Freq: Status: Discharge Protocol: Document 05/13/21 15:28 MEKA (Rec: 05/13/21 15:35 MEKA [id number]) Nutrition Notes Initial or Follow up Reassessment Current Diagnosis Hypertension,Respiratory Failure Other Pertinent Diagnosis COVID-19, Pneumonia, Bradycardia/PEA arrest, Constipation, Transaminitis, M Current Diet TF - Osmolite 1.5 at 40ml/hr Labs/Tests BUN 59 Cr 1.3 Pertinent Medications Reviewed Height 5 ft 6 in Weight 47.94 kg [place] Body Weight (kg) 59.09 BMI 17.0 Weight Status Underweight Subjective/Other Information Pt remains on vent support. Pt scheduled for trach/PEG placement tomorrow. Per RN, pt tolerating TF; last BM was 05/10. Pt receives colace, senokot, and miralax daily. Percent of energy/protein needs met: 100% energy and pro Burn Absent Trauma Absent GI Symptoms Constipation #1 Nutrition Diagnosis Inadequate oral intake Diagnosis Progress(for reassessment Continues documentation) Is patient on ventilator? Yes Is Patient Ambulatory and/or Out of Bed No REE-([place]-confined to bed) 1119.252 Kcal/Kg value to use for calculation 30 Approximate Energy Requirements Using 1438 kcal/Kg Calculation Used for Recommendations Kcal/kg Additional Notes Pro needs 1.2-2g/k-96g/ day Fluid needs 1ml/kcal Nutrition Intervention Nutrition Support: Continue Osmolite 1.5 at 40ml/ hr with scheduled water flushes. Kcal 1,440 Protein (gm) 60 Carbohydrates (gm) 195 Fat (gm) 47 Fluid (mL) 732 Fiber (gm) 0 Goal #1 TF tolerance Goal #2 TF to meet 100% energy and pro needs Goal #3 Wt maintenance and/or gain Follow-Up By: 05/17/21 Additional Comments F/U: Trach/PEG placement, BM, vent status
[2021-05-11] MEDS: BUDESONIDE 0.5 MG/2 ML NEBU IH SCH ×3 (08:38→21:56)
[2021-05-11] MEDS: GLYCOPYRROLATE 1 MG TAB PO SCH ×3 (08:54→20:45)
[2021-05-11] MEDS: DOCUSATE SODIUM 100 MG/10 ML ORAL LIQD PO SCH ×2 (09:57→21:51)
[2021-05-11] MEDS: FAMOTIDINE 10 MG TAB FEEDTUBE SCH ×2 (09:58→22:52)
[2021-05-11] MEDS: dexAMETHasone 4 MG/ML VIAL IV SCH (09:58)
[2021-05-11] MEDS: SENNOSIDES/DOCUSATE SODIUM 8.6/50 MG TAB FEEDTUBE SCH ×2 (09:58→22:52)
[2021-05-11] MEDS: QUEtiapine 100 MG TAB PO SCH ×2 (09:58→21:51)
[2021-05-11] MEDS: POLYETHYLENE GLYCOL 3350 17 GM POWDER PO SCH (09:58)
[2021-05-11] MEDS: QUEtiapine 25 MG TAB PO SCH ×2 (09:59→22:53)
--- NOTE | 2021-05-11 14:06 | Progress Note ---
Assessment and Plan Symptomatic bradycardia with subsequent PEA arrest status post ROSC Acute hypoxic respiratory failure Cardiogenic shock Hypothyroidism Thrombocytopenia Acute metabolic encephalopathy Leukopenia Anemia Transaminitis Hypothermia Hyperkalemia - PRBC transfusion for serum Hb < 7.0 - Hold tube feeds - hold Fentanyl drip - trial of extubation (good cuff leak) - extubate direct to BIPAP 16/8 rate 20 then transition to qhs as tolerated - if fails again will need tracheostomy - continue Robinul and Mucomyst for better secretion control - continue Lasix X 1 more days post PRBC transfusion - continue Seroquel dose - continue SBT; tentative trial of extubation next 24-48 hours once pulmonary edema better - continue care as below otherwise; - wean vasopressors for target MAP > 65 mmHg - continue Daily SAT and SBT assessment as tolerated - continue bronchodilators with pulmonary hygiene per RT - continue to wean supplemental oxygen for target O2 sat's > 90% acutely - VAP bundle addressed - continue lung protective strategies - continue bronchodilators with pulmonary hygiene per RT - wean per pulmonary driven protocols otherwise - sedation prn for target RASS 0 to -1 - AB's per ID recommendations - continue accuchecks with glycemic control per SSI (While critically ill target blood glucose of 140-180 mg/dL; avoid hypoglycemia) - avoid nephrotoxins, renally dose all medications - continue to avoid benzodiazepine's, reduce the possibility of delirium - prn analgesia per CPOT score - Maintenance of sleep-wake cycle, avoid delirium - continue enteral nutritional support at goal rate as tolerated - G.I. & VTE prophylaxis (VTE prophylaxis with SCDs; She has required supportive blood transfusions and has thrombocytopenia) - PT/OT/ROM exercises - mobility protocols for pressure ulcer prophylaxis - Monitor hemodynamics closely - continue other care per attending / other consultants - discharge planning ongoing concurrently COVID SPECIFIC INTERVENTIONS - Remdesivir as per ID/Pulmonary developed protocols - continue systemic steroids for severe COVID-19 infection empirically (Dexamethasone) - follow repeat COVID tests results - zinc and vitamin C supplementation - Monitor inflammatory markers per facility protocol - ferritin, Ddimer, CRP - therapeutic anticoagulation per system Protocol based on d-dimer and clinical considerations - Continue contact and airborne isolation .... Re-evaluate in am & prn CONDITION: CRITICAL PROGNOSIS: GUARDED CODE STATUS: FULL CODE The high probability of a clinically significant, sudden or life-threatening deterioration of the [respiratory, cardiovascular & neurologic] system(s) required my full and direct attention, intervention and personal management. The aggregate critical care time was [32] minutes without overlap. Time includes spent on; [x] Data Review and interpretation [x] Patient assessment and monitoring of vital signs [x] Documentation [x] Medication orders and management Subjective Date of service: 05/11/21 Principal diagnosis: Symptomatic bradycardia; AHRF; Cardiogenic shock; Throm bocytopenia; AMS Interval history: Patient is seen today for: Symptomatic bradycardia; Acute hypoxic respiratory failure; Cardiogenic shock; Hypothyroidism; Thrombocytopenia; AMS; Hyperkalemia Seen and examined at bedside; 24hour events reviewed; nursing and respiratory care staff consulted; no adverse overnight events reported to me; resting in bed; remains on MVS; secretions better; on SBT via PSV with p-supp @ 10 cm H2O and tolerating well; No N/V/F/C Objective Vital Signs - 12hr 05/11/21 05/11/21 05/11/21 02:00 02:30 02:46 Temperature Pulse Rate 68 63 Pulse Rate [ 73 Anterior Bilateral Throughout] Respiratory Rate Respiratory 20 Rate [Anterior Bilateral Throughout] Blood Pressure 134/54 132/49 O2 Sat by Pulse 98 97 Oximetry 05/11/21 05/11/21 05/11/21 03:01 03:30 03:58 Temperature 99.3 F Pulse Rate 64 66 69 Pulse Rate [ Anterior Bilateral Throughout] Respiratory Rate Respiratory Rate [Anterior Bilateral Throughout] Blood Pressure 127/51 131/56 131/56 O2 Sat by Pulse 98 97 97 Oximetry 05/11/21 05/11/21 05/11/21 04:00 04:01 04:31 Temperature Pulse Rate 69 76 Pulse Rate [ Anterior Bilateral Throughout] Respiratory 18 Rate Respiratory Rate [Anterior Bilateral Throughout] Blood Pressure 133/46 135/53 O2 Sat by Pulse 97 97 96 Oximetry 05/11/21 05/11/21 05/11/21 05:00 05:19 05:30 Temperature Pulse Rate 73 72 70 Pulse Rate [ Anterior Bilateral Throughout] Respiratory Rate Respiratory Rate [Anterior Bilateral Throughout] Blood Pressure 134/59 122/48 O2 Sat by Pulse 95 97 Oximetry 05/11/21 05/11/21 05/11/21 06:01 06:30 07:00 Temperature Pulse Rate 68 67 66 Pulse Rate [ Anterior Bilateral Throughout] Respiratory Rate Respiratory Rate [Anterior Bilateral Throughout] Blood Pressure 121/49 116/47 113/50 O2 Sat by Pulse 96 96 96 Oximetry 05/11/21 05/11/21 05/11/21 07:30 08:00 08:30 Temperature 98.7 F Pulse Rate 64 65 85 Pulse Rate [ Anterior Bilateral Throughout] Respiratory 18 Rate Respiratory Rate [Anterior Bilateral Throughout] Blood Pressure 112/52 115/48 135/57 O2 Sat by Pulse 96 97 98 Oximetry 05/11/21 05/11/21 05/11/21 08:31 08:39 09:01 Temperature Pulse Rate 72 98 H Pulse Rate [ 77 Anterior Bilateral Throughout] Respiratory Rate Respiratory 22 Rate [Anterior Bilateral Throughout] Blood Pressure 115/48 183/88 O2 Sat by Pulse 98 99 Oximetry 05/11/21 05/11/21 05/11/21 09:31 10:00 10:30 Temperature Pulse Rate 85 80 76 Pulse Rate [ Anterior Bilateral Throughout] Respiratory Rate Respiratory Rate [Anterior Bilateral Throughout] Blood Pressure 147/55 127/53 132/49 O2 Sat by Pulse 96 94 Oximetry 05/11/21 05/11/21 05/11/21 11:01 11:30 12:00 Temperature 98.5 F Pulse Rate 76 73 67 Pulse Rate [ Anterior Bilateral Throughout] Respiratory 18 Rate Respiratory Rate [Anterior Bilateral Throughout] Blood Pressure 140/49 113/41 121/49 O2 Sat by Pulse 96 Oximetry 05/11/21 05/11/21 05/11/21 12:10 12:30 13:01 Temperature Pulse Rate 72 72 69 Pulse Rate [ Anterior Bilateral Throughout] Respiratory 9 L Rate Respiratory Rate [Anterior Bilateral Throughout] Blood Pressure 124/73 124/43 116/42 O2 Sat by Pulse 97 97 98 Oximetry Constitutional: no acute distress, other (elderly female with mildly increased respiratory effort at rest on MVS) Eyes: non-icteric ENT: oropharynx moist, other (ETT 24 cm HIMANSHU) Neck: supple, no lymphadenopathy, no JVD Effort: mildly labored Ascultation: Bilateral: diminished breath sounds, rales (bilateral) Percussion: Bilateral: not dull Cardiovascular: regular rate and rhythm, other (S1,S2) Gastrointestinal: normoactive bowel sounds, soft, non-distended, other (distended suprapubic area- possibly bladder) Integumentary: normal Extremities: no cyanosis, no edema, pulses normal, no ischemia or petechiae Neurologic: non-focal exam (grossly), pupils equal and round, unable to assess, other (sedated) Psychiatric: anxious, other (delirious) CBC and BMP: 05/11/21 04:43 05/11/21 04:43 ABG, PT/INR, D-dimer: ABG ABG pH 7.464 pH Units (7.350-7.450) H 05/10/21 15:12 ABG pCO2 49.5 mm Hg 05/10/21 15:12 ABG pO2 77.1 mm Hg (80.0-90.0) L 05/10/21 15:12 ABG O2 Saturation 97.1 % (95.0-99.0) 05/10/21 15:12 PT/INR, D-dimer PT 15.1 Sec. (12.2-14.9) H 05/02/21 05:16 INR 1.07 (0.87-1.13) 05/02/21 05:16 D-Dimer 2342.13 ng/mlDDU (0-234) H 05/09/21 06:47 Abnormal lab findings: Abnormal Labs 05/02/21 05/02/21 05/02/21 05:16 05:16 05:16 WBC 2.9 L RBC 2.36 L Hgb 7.4 L Hct 22.2 L RDW 18.2 H Plt Count Lymph % (Auto) Lymph # (Auto) 0.5 L Seg Neutrophils % 76.5 H Seg Neuts % (Manual) Lymphocytes % (Manual) Lymphocytes # (Manual) PT 15.1 H APTT 41.7 H D-Dimer ABG pH ABG pO2 ABG HCO3 ABG O2 Saturation ABG Base Excess ABG Hemoglobin Oxyhemoglobin Sodium 129 L Potassium 6.2 H* Chloride 97.0 L Carbon Dioxide BUN Creatinine Glucose POC Glucose Magnesium Ferritin AST ALT Lactate Dehydrogenase Total Creatine Kinase C-Reactive Protein Total Protein Albumin TSH Free T4 Coronavirus (PCR) Crossmatch 05/02/21 05/02/21 05/02/21 05:17 05:53 06:41 WBC RBC Hgb Hct RDW Plt Count Lymph % (Auto) Lymph # (Auto) Seg Neutrophils % Seg Neuts % (Manual) Lymphocytes % (Manual) Lymphocytes # (Manual) PT APTT D-Dimer ABG pH ABG pO2 ABG HCO3 ABG O2 Saturation ABG Base Excess ABG Hemoglobin Oxyhemoglobin Sodium Potassium Chloride Carbon Dioxide BUN Creatinine Glucose POC Glucose Magnesium Ferritin AST 144 H ALT 115 H Lactate Dehydrogenase Total Creatine Kinase 189 H C-Reactive Protein Total Protein 9.6 H Albumin 2.9 L TSH 10.350 H Free T4 0.61 L Coronavirus (PCR) Crossmatch 05/02/21 05/02/21 05/03/21 11:50 15:56 04:52 WBC RBC 2.20 L Hgb 6.8 L Hct 20.6 L RDW 18.4 H Plt Count Lymph % (Auto) Lymph # (Auto) Seg Neutrophils % Seg Neuts % (Manual) 86.0 H Lymphocytes % (Manual) 3.0 L Lymphocytes # (Manual) 0.1 L PT APTT D-Dimer ABG pH ABG pO2 352.4 H ABG HCO3 ABG O2 Saturation 99.5 H ABG Base Excess ABG Hemoglobin 6.9 L Oxyhemoglobin Sodium Potassium 5.8 H Chloride Carbon Dioxide BUN Creatinine Glucose POC Glucose Magnesium Ferritin AST ALT Lactate Dehydrogenase Total Creatine Kinase C-Reactive Protein Total Protein Albumin TSH Free T4 Coronavirus (PCR) Crossmatch 05/03/21 05/03/21 05/03/21 04:52 10:10 10:23 WBC RBC Hgb Hct RDW Plt Count Lymph % (Auto) Lymph # (Auto) Seg Neutrophils % Seg Neuts % (Manual) Lymphocytes % (Manual) Lymphocytes # (Manual) PT APTT D-Dimer ABG pH ABG pO2 177.2 H ABG HCO3 ABG O2 Saturation 99.1 H ABG Base Excess ABG Hemoglobin 7.1 L Oxyhemoglobin Sodium 129 L Potassium 6.2 H* Chloride 97.0 L Carbon Dioxide BUN 25 H Creatinine Glucose POC Glucose 106 H Magnesium Ferritin AST 152 H ALT 127 H Lactate Dehydrogenase Total Creatine Kinase C-Reactive Protein Total Protein 8.6 H Albumin 2.6 L TSH Free T4 Coronavirus (PCR) Crossmatch 05/03/21 05/03/21 05/03/21 13:11 14:13 16:49 WBC RBC Hgb Hct RDW Plt Count Lymph % (Auto) Lymph # (Auto) Seg Neutrophils % Seg Neuts % (Manual) Lymphocytes % (Manual) Lymphocytes # (Manual) PT APTT D-Dimer ABG pH ABG pO2 ABG HCO3 ABG O2 Saturation ABG Base Excess ABG Hemoglobin Oxyhemoglobin Sodium Potassium Chloride Carbon Dioxide BUN Creatinine Glucose POC Glucose 116 H 58 L Magnesium Ferritin AST ALT Lactate Dehydrogenase Total Creatine Kinase C-Reactive Protein Total Protein Albumin TSH Free T4 Coronavirus (PCR) Crossmatch See Detail 05/03/21 05/03/21 05/03/21 17:34 19:58 20:07 WBC RBC Hgb Hct RDW Plt Count Lymph % (Auto) Lymph # (Auto) Seg Neutrophils % Seg Neuts % (Manual) Lymphocytes % (Manual) Lymphocytes # (Manual) PT APTT D-Dimer ABG pH ABG pO2 ABG HCO3 ABG O2 Saturation ABG Base Excess ABG Hemoglobin Oxyhemoglobin Sodium 131 L Potassium 5.7 H Chloride 97.7 L Carbon Dioxide 21 L BUN 28 H Creatinine 1.4 H Glucose 130 H POC Glucose 123 H 122 H Magnesium Ferritin AST ALT Lactate Dehydrogenase Total Creatine Kinase C-Reactive Protein Total Protein Albumin TSH Free T4 Coronavirus (PCR) Crossmatch 05/03/21 05/03/21 05/04/21 Unknown 23:59 02:59 WBC RBC Hgb Hct RDW Plt Count Lymph % (Auto) Lymph # (Auto) Seg Neutrophils % Seg Neuts % (Manual) Lymphocytes % (Manual) Lymphocytes # (Manual) PT APTT D-Dimer ABG pH ABG pO2 ABG HCO3 ABG O2 Saturation ABG Base Excess ABG Hemoglobin Oxyhemoglobin Sodium Potassium Chloride Carbon Dioxide BUN Creatinine Glucose POC Glucose 117 H 142 H Magnesium Ferritin AST ALT Lactate Dehydrogenase Total Creatine Kinase C-Reactive Protein Total Protein Albumin TSH Free T4 Coronavirus (PCR) Positive A Crossmatch 05/04/21 05/04/21 05/04/21 03:15 09:41 09:41 WBC RBC 2.28 L Hgb 7.1 L Hct 21.4 L RDW 18.5 H Plt Count 97 L Lymph % (Auto) 10.4 L Lymph # (Auto) 0.6 L Seg Neutrophils % 84.7 H Seg Neuts % (Manual) Lymphocytes % (Manual) Lymphocytes # (Manual) PT APTT D-Dimer ABG pH ABG pO2 ABG HCO3 ABG O2 Saturation ABG Base Excess ABG Hemoglobin 6.9 L Oxyhemoglobin 94.9 L Sodium 132 L Potassium Chloride Carbon Dioxide 21 L BUN 33 H Creatinine 1.4 H Glucose 143 H POC Glucose Magnesium Ferritin AST ALT Lactate Dehydrogenase Total Creatine Kinase C-Reactive Protein Total Protein Albumin TSH Free T4 Coronavirus (PCR) Crossmatch 05/04/21 05/04/21 05/04/21 11:43 16:48 21:31 WBC RBC Hgb Hct RDW Plt Count Lymph % (Auto) Lymph # (Auto) Seg Neutrophils % Seg Neuts % (Manual) Lymphocytes % (Manual) Lymphocytes # (Manual) PT APTT D-Dimer ABG pH ABG pO2 ABG HCO3 ABG O2 Saturation ABG Base Excess ABG Hemoglobin Oxyhemoglobin Sodium Potassium Chloride Carbon Dioxide BUN Creatinine Glucose POC Glucose 125 H 129 H 124 H Magnesium Ferritin AST ALT Lactate Dehydrogenase Total Creatine Kinase C-Reactive Protein Total Protein Albumin TSH Free T4 Coronavirus (PCR) Crossmatch 05/05/21 05/05/21 05/05/21 01:32 02:30 04:35 WBC RBC Hgb Hct RDW Plt Count Lymph % (Auto) Lymph # (Auto) Seg Neutrophils % Seg Neuts % (Manual) Lymphocytes % (Manual) Lymphocytes # (Manual) PT APTT D-Dimer ABG pH ABG pO2 123.1 H ABG HCO3 ABG O2 Saturation ABG Base Excess ABG Hemoglobin 5.9 L Oxyhemoglobin Sodium Potassium Chloride Carbon Dioxide BUN Creatinine Glucose POC Glucose 128 H Magnesium Ferritin AST 54 H ALT 70 H Lactate Dehydrogenase Total Creatine Kinase C-Reactive Protein Total Protein 8.4 H Albumin 2.5 L TSH Free T4 Coronavirus (PCR) Crossmatch 05/05/21 05/05/21 05/05/21 04:35 04:35 06:11 WBC 4.4 L RBC 2.04 L Hgb 6.3 L Hct 19.1 L* RDW 18.3 H Plt Count 77 L Lymph % (Auto) Lymph # (Auto) Seg Neutrophils % Seg Neuts % (Manual) Lymphocytes % (Manual) Lymphocytes # (Manual) PT APTT D-Dimer ABG pH ABG pO2 ABG HCO3 ABG O2 Saturation ABG Base Excess ABG Hemoglobin Oxyhemoglobin Sodium 131 L Potassium Chloride Carbon Dioxide 21 L BUN 31 H Creatinine Glucose 158 H POC Glucose 165 H Magnesium 2.40 H Ferritin AST ALT Lactate Dehydrogenase Total Creatine Kinase C-Reactive Protein Total Protein Albumin TSH Free T4 Coronavirus (PCR) Crossmatch 05/05/21 05/05/21 05/05/21 07:20 17:01 23:25 WBC RBC Hgb Hct RDW Plt Count Lymph % (Auto) Lymph # (Auto) Seg Neutrophils % Seg Neuts % (Manual) Lymphocytes % (Manual) Lymphocytes # (Manual) PT APTT D-Dimer ABG pH ABG pO2 ABG HCO3 ABG O2 Saturation ABG Base Excess ABG Hemoglobin Oxyhemoglobin Sodium Potassium Chloride Carbon Dioxide BUN Creatinine Glucose POC Glucose 152 H 114 H 148 H Magnesium Ferritin AST ALT Lactate Dehydrogenase Total Creatine Kinase C-Reactive Protein Total Protein Albumin TSH Free T4 Coronavirus (PCR) Crossmatch 05/06/21 05/06/21 05/06/21 04:56 04:56 05:37 WBC RBC 2.54 L Hgb 7.7 L Hct 23.2 L RDW 18.1 H Plt Count 73 L Lymph % (Auto) Lymph # (Auto) Seg Neutrophils % Seg Neuts % (Manual) Lymphocytes % (Manual) Lymphocytes # (Manual) PT APTT D-Dimer ABG pH ABG pO2 ABG HCO3 ABG O2 Saturation ABG Base Excess ABG Hemoglobin Oxyhemoglobin Sodium 134 L Potassium 5.1 H Chloride Carbon Dioxide BUN 30 H Creatinine Glucose 133 H POC Glucose 120 H Magnesium Ferritin AST ALT Lactate Dehydrogenase Total Creatine Kinase C-Reactive Protein Total Protein Albumin TSH Free T4 Coronavirus (PCR) Crossmatch 05/06/21 05/06/21 05/07/21 14:14 15:40 04:34 WBC RBC 2.69 L Hgb 8.2 L Hct 24.7 L RDW 18.3 H Plt Count 80 L Lymph % (Auto) Lymph # (Auto) Seg Neutrophils % Seg Neuts % (Manual) Lymphocytes % (Manual) Lymphocytes # (Manual) PT APTT D-Dimer ABG pH ABG pO2 72.2 L ABG HCO3 28.0 H ABG O2 Saturation ABG Base Excess 3.6 H ABG Hemoglobin 5.6 L Oxyhemoglobin Sodium Potassium Chloride Carbon Dioxide BUN Creatinine Glucose POC Glucose Magnesium Ferritin AST ALT Lactate Dehydrogenase Total Creatine Kinase C-Reactive Protein 7.30 H Total Protein Albumin TSH Free T4 Coronavirus (PCR) Crossmatch 05/07/21 05/07/21 05/07/21 04:34 04:34 04:34 WBC RBC Hgb Hct RDW Plt Count Lymph % (Auto) Lymph # (Auto) Seg Neutrophils % Seg Neuts % (Manual) Lymphocytes % (Manual) Lymphocytes # (Manual) PT APTT D-Dimer 1661.00 H ABG pH ABG pO2 ABG HCO3 ABG O2 Saturation ABG Base Excess ABG Hemoglobin Oxyhemoglobin Sodium Potassium Chloride Carbon Dioxide BUN 25 H Creatinine Glucose POC Glucose Magnesium Ferritin 410.1 H AST ALT Lactate Dehydrogenase 184 H Total Creatine Kinase C-Reactive Protein 10.70 H Total Protein Albumin TSH Free T4 Coronavirus (PCR) Crossmatch 05/07/21 05/07/21 05/07/21 04:34 04:34 06:14 WBC RBC Hgb Hct RDW Plt Count Lymph % (Auto) Lymph # (Auto) Seg Neutrophils % Seg Neuts % (Manual) Lymphocytes % (Manual) Lymphocytes # (Manual) PT APTT D-Dimer ABG pH ABG pO2 ABG HCO3 ABG O2 Saturation ABG Base Excess ABG Hemoglobin Oxyhemoglobin Sodium Potassium Chloride Carbon Dioxide BUN Creatinine Glucose POC Glucose 134 H Magnesium Ferritin AST ALT Lactate Dehydrogenase Total Creatine Kinase C-Reactive Protein Total Protein Albumin TSH 9.910 H Free T4 0.61 L Coronavirus (PCR) Crossmatch 05/07/21 05/07/21 05/07/21 12:42 14:29 16:08 WBC RBC Hgb Hct RDW Plt Count Lymph % (Auto) Lymph # (Auto) Seg Neutrophils % Seg Neuts % (Manual) Lymphocytes % (Manual) Lymphocytes # (Manual) PT APTT D-Dimer ABG pH ABG pO2 ABG HCO3 27.6 H ABG O2 Saturation ABG Base Excess ABG Hemoglobin 8.8 L Oxyhemoglobin Sodium Potassium Chloride Carbon Dioxide BUN Creatinine Glucose POC Glucose 121 H Magnesium Ferritin AST ALT Lactate Dehydrogenase Total Creatine Kinase C-Reactive Protein Total Protein 8.6 H Albumin 3.0 L TSH Free T4 Coronavirus (PCR) Crossmatch 05/07/21 05/07/21 05/07/21 18:19 21:17 21:25 WBC RBC Hgb Hct RDW Plt Count Lymph % (Auto) Lymph # (Auto) Seg Neutrophils % Seg Neuts % (Manual) Lymphocytes % (Manual) Lymphocytes # (Manual) PT APTT D-Dimer ABG pH 7.311 L ABG pO2 95.5 H ABG HCO3 28.6 H ABG O2 Saturation ABG Base Excess ABG Hemoglobin 7.8 L Oxyhemoglobin Sodium Potassium Chloride Carbon Dioxide BUN Creatinine Glucose POC Glucose 149 H 143 H Magnesium Ferritin AST ALT Lactate Dehydrogenase Total Creatine Kinase C-Reactive Protein Total Protein Albumin TSH Free T4 Coronavirus (PCR) Crossmatch 05/08/21 05/08/21 05/08/21 06:33 07:29 09:20 WBC RBC Hgb Hct RDW Plt Count Lymph % (Auto) Lymph # (Auto) Seg Neutrophils % Seg Neuts % (Manual) Lymphocytes % (Manual) Lymphocytes # (Manual) PT APTT D-Dimer ABG pH 7.487 H ABG pO2 70.0 L ABG HCO3 29.3 H ABG O2 Saturation ABG Base Excess 5.5 H ABG Hemoglobin 7.6 L Oxyhemoglobin 94.3 L Sodium Potassium Chloride Carbon Dioxide BUN Creatinine Glucose POC Glucose 148 H 151 H Magnesium Ferritin AST ALT Lactate Dehydrogenase Total Creatine Kinase C-Reactive Protein Total Protein Albumin TSH Free T4 Coronavirus (PCR) Crossmatch 05/08/21 05/08/21 05/08/21 11:23 14:47 14:47 WBC RBC 2.57 L Hgb 7.7 L Hct 24.0 L RDW 17.9 H Plt Count 113 L Lymph % (Auto) Lymph # (Auto) Seg Neutrophils % Seg Neuts % (Manual) Lymphocytes % (Manual) Lymphocytes # (Manual) PT APTT D-Dimer ABG pH ABG pO2 ABG HCO3 ABG O2 Saturation ABG Base Excess ABG Hemoglobin Oxyhemoglobin Sodium 135 L Potassium Chloride Carbon Dioxide BUN 35 H Creatinine Glucose 145 H POC Glucose 124 H Magnesium Ferritin AST ALT Lactate Dehydrogenase Total Creatine Kinase C-Reactive Protein Total Protein Albumin TSH Free T4 Coronavirus (PCR) Crossmatch 05/08/21 05/08/21 05/09/21 17:08 23:23 05:37 WBC RBC Hgb Hct RDW Plt Count Lymph % (Auto) Lymph # (Auto) Seg Neutrophils % Seg Neuts % (Manual) Lymphocytes % (Manual) Lymphocytes # (Manual) PT APTT D-Dimer ABG pH ABG pO2 ABG HCO3 ABG O2 Saturation ABG Base Excess ABG Hemoglobin Oxyhemoglobin Sodium Potassium Chloride Carbon Dioxide BUN Creatinine Glucose POC Glucose 151 H 127 H 118 H Magnesium Ferritin AST ALT Lactate Dehydrogenase Total Creatine Kinase C-Reactive Protein Total Protein Albumin TSH Free T4 Coronavirus (PCR) Crossmatch 05/09/21 05/09/21 05/09/21 06:47 06:47 06:47 WBC RBC Hgb Hct RDW Plt Count Lymph % (Auto) Lymph # (Auto) Seg Neutrophils % Seg Neuts % (Manual) Lymphocytes % (Manual) Lymphocytes # (Manual) PT APTT D-Dimer 2342.13 H ABG pH ABG pO2 ABG HCO3 ABG O2 Saturation ABG Base Excess ABG Hemoglobin Oxyhemoglobin Sodium Potassium Chloride Carbon Dioxide BUN 44 H Creatinine 1.3 H Glucose 122 H POC Glucose Magnesium Ferritin 500.1 H AST ALT Lactate Dehydrogenase 212 H Total Creatine Kinase C-Reactive Protein 12.90 H Total Protein Albumin TSH Free T4 Coronavirus (PCR) Crossmatch 05/09/21 05/09/21 05/09/21 06:47 09:53 13:16 WBC RBC 2.39 L Hgb 7.3 L Hct 22.2 L RDW 17.7 H Plt Count 109 L Lymph % (Auto) Lymph # (Auto) Seg Neutrophils % Seg Neuts % (Manual) Lymphocytes % (Manual) Lymphocytes # (Manual) PT APTT D-Dimer ABG pH ABG pO2 ABG HCO3 ABG O2 Saturation ABG Base Excess ABG Hemoglobin Oxyhemoglobin Sodium Potassium Chloride Carbon Dioxide BUN Creatinine Glucose POC Glucose 132 H Magnesium Ferritin AST ALT Lactate Dehydrogenase Total Creatine Kinase C-Reactive Protein Total Protein 8.3 H Albumin 2.6 L TSH Free T4 Coronavirus (PCR) Crossmatch 05/09/21 05/09/21 05/09/21 14:17 15:20 16:57 WBC RBC Hgb Hct RDW Plt Count Lymph % (Auto) Lymph # (Auto) Seg Neutrophils % Seg Neuts % (Manual) Lymphocytes % (Manual) Lymphocytes # (Manual) PT APTT D-Dimer ABG pH 7.467 H ABG pO2 58.7 L ABG HCO3 31.5 H ABG O2 Saturation 99.3 H ABG Base Excess 7.2 H ABG Hemoglobin Oxyhemoglobin Sodium Potassium Chloride Carbon Dioxide BUN Creatinine Glucose POC Glucose 163 H 159 H Magnesium Ferritin AST ALT Lactate Dehydrogenase Total Creatine Kinase C-Reactive Protein Total Protein Albumin TSH Free T4 Coronavirus (PCR) Crossmatch 05/09/21 05/09/21 05/10/21 21:31 23:53 04:13 WBC RBC Hgb Hct RDW Plt Count Lymph % (Auto) Lymph # (Auto) Seg Neutrophils % Seg Neuts % (Manual) Lymphocytes % (Manual) Lymphocytes # (Manual) PT APTT D-Dimer ABG pH ABG pO2 ABG HCO3 ABG O2 Saturation ABG Base Excess ABG Hemoglobin Oxyhemoglobin Sodium Potassium Chloride Carbon Dioxide BUN Creatinine Glucose POC Glucose 136 H 138 H 110 H Magnesium Ferritin AST ALT Lactate Dehydrogenase Total Creatine Kinase C-Reactive Protein Total Protein Albumin TSH Free T4 Coronavirus (PCR) Crossmatch 05/10/21 05/10/21 05/10/21 04:51 04:51 08:10 WBC RBC 2.59 L Hgb 7.9 L Hct 24.0 L RDW 17.7 H Plt Count Lymph % (Auto) Lymph # (Auto) Seg Neutrophils % Seg Neuts % (Manual) Lymphocytes % (Manual) Lymphocytes # (Manual) PT APTT D-Dimer ABG pH ABG pO2 ABG HCO3 ABG O2 Saturation ABG Base Excess ABG Hemoglobin Oxyhemoglobin Sodium Potassium Chloride Carbon Dioxide BUN 47 H Creatinine Glucose 125 H POC Glucose 142 H Magnesium Ferritin AST ALT Lactate Dehydrogenase Total Creatine Kinase C-Reactive Protein Total Protein Albumin TSH Free T4 Coronavirus (PCR) Crossmatch 05/10/21 05/10/21 05/10/21 11:41 15:12 16:51 WBC RBC Hgb Hct RDW Plt Count Lymph % (Auto) Lymph # (Auto) Seg Neutrophils % Seg Neuts % (Manual) Lymphocytes % (Manual) Lymphocytes # (Manual) PT APTT D-Dimer ABG pH 7.464 H ABG pO2 77.1 L ABG HCO3 34.7 H ABG O2 Saturation ABG Base Excess 10.2 H ABG Hemoglobin 9.4 L Oxyhemoglobin Sodium Potassium Chloride Carbon Dioxide BUN Creatinine Glucose POC Glucose 163 H 147 H Magnesium Ferritin AST ALT Lactate Dehydrogenase Total Creatine Kinase C-Reactive Protein Total Protein Albumin TSH Free T4 Coronavirus (PCR) Crossmatch 05/10/21 05/11/21 05/11/21 22:22 04:43 04:43 WBC RBC 2.26 L Hgb 6.9 L Hct 21.0 L RDW 17.7 H Plt Count Lymph % (Auto) Lymph # (Auto) Seg Neutrophils % Seg Neuts % (Manual) Lymphocytes % (Manual) Lymphocytes # (Manual) PT APTT D-Dimer ABG pH ABG pO2 ABG HCO3 ABG O2 Saturation ABG Base Excess ABG Hemoglobin Oxyhemoglobin Sodium 132 L D Potassium 5.1 H Chloride 95.1 L Carbon Dioxide 31 H BUN 46 H Creatinine Glucose 135 H POC Glucose 133 H Magnesium 2.70 H Ferritin AST ALT Lactate Dehydrogenase Total Creatine Kinase C-Reactive Protein Total Protein Albumin TSH Free T4 Coronavirus (PCR) Crossmatch 05/11/21 05/11/21 05/11/21 05:22 07:47 12:29 WBC RBC Hgb Hct RDW Plt Count Lymph % (Auto) Lymph # (Auto) Seg Neutrophils % Seg Neuts % (Manual) Lymphocytes % (Manual) Lymphocytes # (Manual) PT APTT D-Dimer ABG pH ABG pO2 ABG HCO3 ABG O2 Saturation ABG Base Excess ABG Hemoglobin Oxyhemoglobin Sodium Potassium Chloride Carbon Dioxide BUN Creatinine Glucose POC Glucose 133 H 122 H 143 H Magnesium Ferritin AST ALT Lactate Dehydrogenase Total Creatine Kinase C-Reactive Protein Total Protein Albumin TSH Free T4 Coronavirus (PCR) Crossmatch Chest x-ray: pending Allied health notes reviewed: nursing
[2021-05-11] MEDS: FUROSEMIDE 20 MG/2 ML INJ IV SCH (14:30)
[2021-05-11] MEDS ORDERED: SODIUM CHLORIDE 0.9% 500 ML 500 ML IV ONE (15:43)
--- NOTE | 2021-05-11 18:55 | Procedure Note ---
Date of procedure: 05/11/21 Pre-op diagnosis: acute respiratory failure Post-op diagnosis: same Procedure: Emergency room assistance is requested by hospital physician, Dr. Kolby Blanco, for intubation for hypoxic respiratory failure, failing BiPAP. Emergent administrative to provide a consent is provided by myself and the aforementioned hospital physician. Upon my initial arrival, this patient is stridulous, saturating at 79 to 82% on a BiPAP, and is acutely altered. Intubation is e mergently indicated. Patient induced with ketamine, and paralyzed with rocuronium; please reference nursing notes for specific doses. Patient receives [id number] ventilation with a Peep valve at 5 cc, and is preoxygenated to 99% O2 saturation. Prior to paralysis, stridulous sounds are appreciated from the patient's airway Video laryngoscopy is performed, and the airway is copiously suctioned. A gum elastic bougie catheter is inserted under direct visualization through the trachea, and passes through the vocal cords. Distal to the vocal cords, an impediment is appreciated. Nevertheless, a 7.5 endotracheal tube is gently inserted over the gum elastic bougie catheter, and successfully inserted into the trachea. Post procedure end-tidal capnography demonstrates appropriate color change, O2 sat remains 97%, and breath sounds are appreciated bilaterally. We will defer to the inpatient/critical care team to follow-up on post procedure x-ray, and manage this patient post intubation. Recommend that inpatient team consider bronchoscopic evaluation to assess for subglottic stenosis and/or tracheal anatomic abnormalities, in addition, this patient is likely to be a high risk extubation, so should extubation be considered in the future, recommend that this be done in a controlled setting, preferably with either anesthesia and/or critical care present at the bedside. Anesthesia: other (Ketamine) Surgeon: PARVIN GARCIA Photo Machine Operator: BELL HENSLEY Estimated blood loss: none Condition: critical Disposition: no change
--- NOTE | 2021-05-11 19:52 | XRay Report ---
CHEST 1 VIEW INDICATION / CLINICAL INFORMATION: intubation STUDY TIME: 1923 COMPARISON: 05/10/2021 FINDINGS: SUPPORT DEVICES: Endotracheal tube appears to be in satisfactory position with tip approximately 2.6 cm above the estela. Nasogastric tube extends well into the stomach. HEART / MEDIASTINUM: Stable LUNGS / PLEURA: Prominent patchy bilateral infiltrates appear moderately worse on the right and mildl y worse on the left. No pneumothorax. ADDITIONAL FINDINGS: No significant additional findings. Signer Name: Ken Cook MD Signed: 05/11/2021 7:47 PM Workstation Name: [id number]
[2021-05-11 20:41] LABS: ABG Base Excess 8.6 mmol/L (-2.0-3.0); ABG HCO3 33.9 mmol/L (20.0-26.0); ABG Methemoglobin 0.4 % (0.0-1.5); ABG Oxygen Saturation 99.5 % (95.0-99.0); ABG PCO2 52.5 mm Hg; ABG PH 7.428 pH Units (7.350-7.450)
[2021-05-11 20:43] LABS: ABG PO2 345.1 mm Hg (80.0-90.0)
[2021-05-11] MEDS: fentaNYL DRIP Premix 2,000 MCG/100 ML BAG IV SCH (22:45)
[2021-05-12] MEDS: INSULIN LISPRO 100 UNIT/ML SUB-Q SCH ×4 (00:30→18:00)
[2021-05-12] MEDS: fentaNYL DRIP Premix 2,000 MCG/100 ML BAG IV SCH (00:41)
[2021-05-12] MEDS: hydrALAZINE 20 MG/1 ML INJ IV PRN (01:00)
[2021-05-12] MEDS ORDERED: KETAMINE 500 MG/5 ML VIAL MDV ONE (02:38)
[2021-05-12] MEDS ORDERED: ROCURONIUM 50 MG/5 ML INJ IV ONE (02:38)
--- NOTE | 2021-05-12 05:47 | XRay Report ---
ABDOMEN 1 VIEW 05/12/2021 4:38 AM INDICATION / CLINICAL INFORMATION: OG Placement. COMPARISON: 05/07/21. FINDINGS: TUBES / LINES: The tip of the orogastric tube overlies the distal stomach. BOWEL GAS PATTERN: No significant abnormality. FREE AIR / EXTRALUMINAL GAS: None. ADDITIONAL FINDINGS: No significant additional findings. IMPRESSION: The tip of the orogastric tube overlies the distal stomach. Signer Name: Hua Price MD Signed: 05/12/2021 5:42 AM Workstation Name: [id number]
[2021-05-12] MEDS: hydrALAZINE 25 MG TAB PO SCH ×3 (06:46→20:18)
[2021-05-12] MEDS: LEVOTHYROXINE 100 MCG INJ IV SCH (06:47)
[2021-05-12] MEDS: ACETYLCYSTEINE 20% 200 MG/1 ML *FOR INHALATION USE INHALATION SCH (07:59)
[2021-05-12] MEDS: BUDESONIDE 0.5 MG/2 ML NEBU IH SCH (08:08)
[2021-05-12] MEDS: IPRATROPIUM/ALBUTEROL SULFATE 3 ML AMPUL.NEB IH SCH (08:08)
[2021-05-12 08:15] LABS: Calcium 9.2 mg/dL (8.4-10.2)
[2021-05-12 08:28] LABS: Hemoglobin 7.6 gm/dl (10.1-14.3); Mean Corpuscular HGB Conc 33 % (30-34); Mean Corpuscular Volume 91 fl (79-97); Platelet Count 207 K/mm3 (140-440); Red Blood Count 2.55 M/mm3 (3.65-5.03)
[2021-05-12 08:30] LABS: ABG Base Excess 10.5 mmol/L (-2.0-3.0); ABG HCO3 34.6 mmol/L (20.0-26.0); ABG Methemoglobin 0.5 % (0.0-1.5); ABG Oxygen Saturation 99.4 % (95.0-99.0); ABG PCO2 45.2 mm Hg; ABG PH 7.502 pH Units (7.350-7.450); ABG PO2 223.9 mm Hg (80.0-90.0)
[2021-05-12] MEDS: GLYCOPYRROLATE 1 MG TAB PO SCH ×3 (09:08→20:18)
[2021-05-12] MEDS: FAMOTIDINE 10 MG TAB FEEDTUBE SCH ×2 (09:08→22:20)
[2021-05-12] MEDS: SENNOSIDES/DOCUSATE SODIUM 8.6/50 MG TAB FEEDTUBE SCH ×2 (09:08→22:20)
[2021-05-12] MEDS: DOCUSATE SODIUM 100 MG/10 ML ORAL LIQD PO SCH ×2 (09:08→22:10)
[2021-05-12] MEDS: QUEtiapine 25 MG TAB PO SCH (09:08)
[2021-05-12] MEDS: POLYETHYLENE GLYCOL 3350 17 GM POWDER PO SCH (09:08)
[2021-05-12] MEDS: QUEtiapine 100 MG TAB PO SCH (09:08)
[2021-05-12] MEDS: FUROSEMIDE 20 MG/2 ML INJ IV SCH (09:09)
[2021-05-12] MEDS: dexAMETHasone 4 MG/ML VIAL IV SCH (09:09)
[2021-05-12] MEDS: SCOPOLAMINE TRANSDERMAL PATCH 72 HR TD SCH (09:13)
--- NOTE | 2021-05-12 14:27 | Progress Note ---
<NAVAARSatnam - Last Filed: 05/12/21 14:21> Assessment and Plan Assessment and plan: This is a 89-year-old female HTN, legally blind, nicotine abuse, [place] and recent UTI initially admitted for bradycardia and AMS. Patient subsequently PEA arrested with ROSC in the ED was intubated and placed on ventilatory support. T dee was taken to [facility] for emergent transvenous pacemaker placement by Cardio. Assessment and Plan Symptomatic bradycardia, s/p PEA arrest, cardiogenic shock, h/o hypertension -S/p transvenous pacemaker (05/02-05/07) -Cardiology consulted, appreciate recommendations -S/p atropine with transient response-> PEA arrest -S/p dopamine drip -05/02 echocardiogram shows EF of 65 to 70% -Started on p.o. hydralazine for hypertension -Blood pressure monitor per protocol Acute hypoxic respiratory failure -Intubated on 05/02 and extubated 05/08 with a 7.00 ETT at 22 at the lips -Noted to have increased work of breathing and reintubated on 05/08 with 7.50 ETT at -CCM consulted, appreciate recommendations -A.m. vent settings AC rate 20, tidal volume 400, PEEP 6, FiO2 40% -See RT notes for titration -consulted surgery for trach/peg -ABG and CXR per [facility] -VAP bundle -Continuous SPO2 monitoring -Started on steroids due to angioedema Severe COVID-19 pneumonia -CXR showed diffuse bilateral infiltrates, hypoxia on admission -Infectious disease consulted, appreciate recommendations -s/p Dexamethasone for 10 days -s/p cefepime for 5 days -Anticoagulation per protocol -Trend COVID-19 inflammatory markers -Droplet/isolation precautions Acute metabolic encephalopathy, h/o legally blind -Avoid delirium -Maintain sleep-wake cycle -Sedated with fentanyl -RASS goal 0 to -1 -on Seroquel Severe constipation, transaminitis -24 hours -312 mL -No BM recorded since admit -ducolax suppository given with no response -04/14 25 KUB shows constipation -bm 05/10 -BR: Colace, Senokot -PPI -Trend LFT Thrombocytopenia, anemia, leukopenia (resolved) -HIT panel pending -Platelets noted 73 K 05/06 Now slowly improving -SCD to bilateral lower extremity while in bed -Trend CBC -Transfuse hemoglobin less than 7 -Hold chemical anticoagulation for now Sick thyroid syndrome -Levothyroxine -TSH 10.35, free T4 0.61 -Repeat TSH 9.9/FT 4 0.61 The high probability of a clinically significant, sudden or life threatening deterioration of the [multi] system(s) required my full and direct attention, intervention and personal management. The aggregate critical care time was [60] minutes. This time is in addition to time spent performing reported procedures but includes the following: [x] Data Review and interpretation [x] Patient assessment and monitoring of vital signs [x] Documentation [x] Medication orders and management Disposition Plan: icu Total Time Spent with Patient (Minutes): 60 History Interval history: This is a 89-year-old female with hypertension, legally blind, recent UTI, nicotine abuse hard of hearing who presented to the emergency department on 05/02 with AMS, decreased p.o. of note, bradycardia via EMS. Per family patient has been exhibiting mumbling/hallucination/strange paranoid behavior approximately 2 weeks prior to presentation and was seen by her PCP who noticed that her blood pressure was extremely elevated in the office documented systolic of 240 and she was treated for high blood pressure and UTI at that time. She improved after this per family but subsequently worsened and request to same behavior exhibited 2 weeks ago and became unresponsive prior to arrival. Per EMS patient was noted to be bradycardic to 38 bpm and given atropine with improvement in heart rate to 65 however the patient shortly thereafter bradyed down to 45 bpm. In the emergency department patient was confused. The emergency department patient lost a pulse and went into PEA arrest and ACLS was initiated by ED staff and ROSC was achieved after 1 round of epinephrine. Patient was taken immediately to the [facility] by cardiology for transvenous pacemaker placement and was intubated. Patient was admitted to the hospitalist service with symptomatic bradycardia, s/p cardiac arrest, acute hypoxic respiratory failure, cardiogenic shock, electrode imbalances, hypothermia, acute metabolic encephalopathy, euthyroid sick syndrome, transaminitis with consults to cardiology, pulmonology and eventually infectious disease. Hospital Course to Date: 05/03: s/p cardiac arrest, remains unresponsive, not on any sedation. +gag/cough and corneal reflex, pending CT head/brain. Patient H&H also dropped this am, 1unit of PRBCs ordered. Hyperkalemia was treated per protoocl, repeat BMP at 1600. BR was initiated for severe constipation, TF was initiated. 05/04: Patient is awake this am, following simple commands. Off dopamine gtt and Transvenous pacer at a back rate of 60. COVID PCR +, patient is on IV Abx and IV steroids. Awaiting cardio recommendation, if no plan for PPM insertion, plan for PST for possible extubation. 05/05: On sedation this am due to increase agitation. Patient failed SAT this am. 1unit ordered for low H&H this am with worsening in thrombocytopenia, AC held and stool occult ordered. Transvenous pacer still present at a back up rate of 50, patient SR on the monitor this am, HR in the 60s. Plan for possible TVP removal tomorrow by Cardio. 05/06: Patient tried on PSV today, hydralazine p.o. for hypertension (initial DCCV but discontinued due to transvenous pacemaker in place), HIT panel ordered. 05/07: Transvenous catheter removed by cardiology, placed on SBT. Head still pending. Repeat thyroid studies show slight improvement. No acute events reported overnight. Home Norvasc changed to hydralazine today 05/08: Added Seroquel per CCM, systemic steroids started for laryngeal edema and patient started on IV Lasix for 3 days. Drop in H/H from 8.2/24.7-7.7/24 noted, will repeat CBC in the a.m. Thrombocytopenia has improved. Patient was extubated yesterday afternoon however she had to be reintubated late evening due to increased work of breathing. Given Dulcolax suppository today 05/09: Continue Seroquel, begin scopolamine for secretion control, CCM and vent changes and will continue Lasix for 1 more day. Given mag citrate 05/10: Patient on CPAP trial, started on Robinul and Mucomyst, CCM will continue Lasix for 2 more days and Seroquel increased to 25 mg due to agitation. 05/11: extubated today. ADALID overngiht 05/12: Patient was reintubated due to stridor and hypoxia, surgery consulted for trach/peg. Increase in Cr but she was on lasix for 2 doses which ended today per ccm. Hospitalist Physical - Physical exam Narrative exam: General appearance: Present: no acute distress, other (Intubated and sedated) - EENT Eyes: Present: PERRL, EOM intact ENT: hearing intact, clear oral mucosa, dentition normal - Neck Neck: Present: normal ROM - Respiratory Respiratory effort: normal Respiratory: bilateral: diminished - Cardiovascular Rhythm: regular Heart Sounds: Present: S1 & S2 - Extremities Extremities: no ischemia, pulses intact, pulses symmetrical, No edema, normal temperature, normal color Peripheral Pulses: within normal limits - Abdominal General gastrointestinal: soft, non-tender, non-distended, normal bowel sounds - Integumentary Integumentary: Present: warm, dry - Psychiatric Psychiatric: cooperative - Neurologic Neurologic: CNII-XII intact, moves all extremities - Allied Health Allied health notes reviewed: nursing, RT, social work - Constitutional Vitals: Temp Pulse Resp BP Pulse Ox 98.4 F 72 13 123/49 96 05/12/21 08:00 05/12/21 12:00 05/12/21 12:00 05/12/21 11:30 05/12/21 12:00 General appearance: Present: no acute distress, other (Intubated and sedated) HEART Score - HEART Score Troponin: Troponin T < 0.010 ng/mL (0.00-0.029) 05/02/21 05:16 Results - Labs CBC & Chem 7: 05/12/21 07:20 05/12/21 07:20 Labs: Laboratory Last Values WBC 8.6 K/mm3 (4.5-11.0) 05/12/21 07:20 RBC 2.55 M/mm3 (3.65-5.03) L 05/12/21 07:20 Hgb 7.6 gm/dl (10.1-14.3) L 05/12/21 07:20 Hct 23.0 % (30.3-42.9) L 05/12/21 07:20 MCV 91 fl (79-97) 05/12/21 07:20 MCH 30 pg (28-32) 05/12/21 07:20 MCHC 33 % (30-34) 05/12/21 07:20 RDW 18.0 % (13.2-15.2) H 05/12/21 07:20 Plt Count 207 K/mm3 (140-440) 05/12/21 07:20 Lymph % (Auto) 10.4 % (13.4-35.0) L 05/04/21 09:41 [place] % (Auto) 4.9 % (0.0-7.3) 05/04/21 09:41 Eos % (Auto) 0.0 % (0.0-4.3) 05/04/21 09:41 Baso % (Auto) 0.0 % (0.0-1.8) 05/04/21 09:41 Lymph # (Auto) 0.6 K/mm3 (1.2-5.4) L 05/04/21 09:41 [place] # (Auto) 0.3 K/mm3 (0.0-0.8) 05/04/21 09:41 Eos # (Auto) 0.0 K/mm3 (0.0-0.4) 05/04/21 09:41 Baso # (Auto) 0.0 K/mm3 (0.0-0.1) 05/04/21 09:41 Add Manual Diff Complete 05/03/21 04:52 Total Counted 100 05/03/21 04:52 Seg Neutrophils % 84.7 % (40.0-70.0) H 05/04/21 09:41 Seg Neuts % (Manual) 86.0 % (40.0-70.0) H 05/03/21 04:52 Band Neutrophils % 8.0 % 05/03/21 04:52 Lymphocytes % (Manual) 3.0 % (13.4-35.0) L 05/03/21 04:52 Reactive Lymphs % (Man) 0 % 05/03/21 04:52 Monocytes % (Manual) 2.0 % (0.0-7.3) 05/03/21 04:52 Eosinophils % (Manual) 1.0 % (0.0-4.3) 05/03/21 04:52 Basophils % (Manual) 0 % (0.0-1.8) 05/03/21 04:52 Metamyelocytes % 0 % 05/03/21 04:52 Myelocytes % 0 % 05/03/21 04:52 Promyelocytes % 0 % 05/03/21 04:52 Blast Cells % 0 % 05/03/21 04:52 Nucleated RBC % Not Reportable 05/03/21 04:52 Seg Neutrophils # 4.6 K/mm3 (1.8-7.7) 05/04/21 09:41 Seg Neutrophils # Man 3.9 K/mm3 (1.8-7.7) 05/03/21 04:52 Band Neutrophils # 0.4 K/mm3 05/03/21 04:52 Lymphocytes # (Manual) 0.1 K/mm3 (1.2-5.4) L 05/03/21 04:52 Abs React Lymphs (Man) 0.0 K/mm3 05/03/21 04:52 Monocytes # (Manual) 0.1 K/mm3 (0.0-0.8) 05/03/21 04:52 Eosinophils # (Manual) 0.0 K/mm3 (0.0-0.4) 05/03/21 04:52 Basophils # (Manual) 0.0 K/mm3 (0.0-0.1) 05/03/21 04:52 Metamyelocytes # 0.0 K/mm3 05/03/21 04:52 Myelocytes # 0.0 K/mm3 05/03/21 04:52 Promyelocytes # 0.0 K/mm3 05/03/21 04:52 Blast Cells # 0.0 K/mm3 05/03/21 04:52 WBC Morphology Not Reportable 05/03/21 04:52 Hypersegmented Neuts Not Reportable 05/03/21 04:52 Hyposegmented Neuts Not Reportable 05/03/21 04:52 Hypogranular Neuts Not Reportable 05/03/21 04:52 Smudge Cells Not Reportable 05/03/21 04:52 Toxic Granulation Not Reportable 05/03/21 04:52 Toxic Vacuolation Not Reportable 05/03/21 04:52 Dohle Bodies Not Reportable 05/03/21 04:52 Pelger-Huet Anomaly Not Reportable 05/03/21 04:52 Shanti Rods Not Reportable 05/03/21 04:52 Platelet Estimate Consistent w auto 05/03/21 04:52 Clumped Platelets Not Reportable 05/03/21 04:52 Plt Clumps, EDTA Not Reportable 05/03/21 04:52 Large Platelets Not Reportable 05/03/21 04:52 Giant Platelets Not Reportable 05/03/21 04:52 Platelet Satelliting Not Reportable 05/03/21 04:52 Plt Morphology Comment Not Reportable 05/03/21 04:52 RBC Morphology Not Reportable 05/03/21 04:52 Dimorphic RBCs Not Reportable 05/03/21 04:52 Polychromasia Not Reportable 05/03/21 04:52 Hypochromasia 2+ 05/03/21 04:52 Poikilocytosis Not Reportable 05/03/21 04:52 Anisocytosis 1+ 05/03/21 04:52 Microcytosis Not Reportable 05/03/21 04:52 Macrocytosis Few 05/03/21 04:52 Spherocytes Not Reportable 05/03/21 04:52 Pappenheimer Bodies Not Reportable 05/03/21 04:52 Sickle Cells Not Reportable 05/03/21 04:52 Target Cells Not Reportable 05/03/21 04:52 Tear Drop Cells Not Reportable 05/03/21 04:52 Ovalocytes Few 05/03/21 04:52 Helmet Cells Not Reportable 05/03/21 04:52 Marcelino-[place] Bodies Not Reportable 05/03/21 04:52 Wilton Rings Not Reportable 05/03/21 04:52 Jossue Cells Not Reportable 05/03/21 04:52 Bite Cells Not Reportable 05/03/21 04:52 Crenated Cell Not Reportable 05/03/21 04:52 Elliptocytes Not Reportable 05/03/21 04:52 Acanthocytes (Spur) Not Reportable 05/03/21 04:52 Rouleaux Not Reportable 05/03/21 04:52 Hemoglobin C Crystals Not Reportable 05/03/21 04:52 Schistocytes Not Reportable 05/03/21 04:52 Malaria parasites Not Reportable 05/03/21 04:52 Anatoly Bodies Not Reportable 05/03/21 04:52 Hem Pathologist Commnt No 05/03/21 04:52 PT 15.1 Sec. (12.2-14.9) H 05/02/21 05:16 INR 1.07 (0.87-1.13) 05/02/21 05:16 APTT 41.7 Sec. (24.2-36.6) H 05/02/21 05:16 D-Dimer 2342.13 ng/mlDDU (0-234) H 05/09/21 06:47 Heparin Anti-Xa, Unfract Negative (Negative) 05/06/21 14:14 ABG pH 7.502 pH Units (7.350-7.450) H 05/12/21 08:25 ABG pCO2 45.2 mm Hg 05/12/21 08:25 ABG pO2 223.9 mm Hg (80.0-90.0) H 05/12/21 08:25 ABG HCO3 34.6 mmol/L (20.0-26.0) H 05/12/21 08:25 ABG O2 Saturation 99.4 % (95.0-99.0) H 05/12/21 08:25 ABG O2 Content 7.9 (0.0-44) 05/12/21 08:25 ABG Base Excess 10.5 mmol/L (-2.0-3.0) H 05/12/21 08:25 ABG Hemoglobin 5.3 gm/dl (12.0-16.0) L 05/12/21 08:25 ABG Carboxyhemoglobin 1.8 % (0.0-5.0) 05/12/21 08:25 ABG Methemoglobin 0.5 % (0.0-1.5) 05/12/21 08:25 Oxyhemoglobin 97.1 % (95.0-99.0) 05/12/21 08:25 FiO2 40 % 05/12/21 08:25 Sodium 141 mmol/L (137-145) D 05/12/21 07:20 Potassium 5.1 mmol/L (3.6-5.0) H 05/12/21 07:20 Chloride 99.5 mmol/L (98-107) 05/12/21 07:20 Carbon Dioxide 32 mmol/L (22-30) H 05/12/21 07:20 Anion Gap 15 mmol/L 05/12/21 07:20 BUN 51 mg/dL (7-17) H 05/12/21 07:20 Creatinine 1.3 mg/dL (0.6-1.2) H 05/12/21 07:20 Estimated GFR 47 ml/min 05/12/21 07:20 BUN/Creatinine Ratio 39 % 05/12/21 07:20 Glucose 93 mg/dL (65-100) 05/12/21 07:20 POC Glucose 107 mg/dL (70-105) H 05/12/21 11:43 Lactic Acid 0.80 mmol/L (0.7-2.0) 05/02/21 05:53 Calcium 9.2 mg/dL (8.4-10.2) 05/12/21 07:20 Phosphorus 2.90 mg/dL (2.5-4.5) D 05/06/21 04:56 Magnesium 2.70 mg/dL (1.7-2.3) H 05/11/21 04:43 Ferritin 500.1 ng/mL (10.0-200.0) H 05/09/21 06:47 Total Bilirubin 0.20 mg/dL (0.1-1.2) 05/09/21 13:16 Direct Bilirubin < 0.2 mg/dL (0-0.2) 05/09/21 13:16 Indirect Bilirubin 0.0 mg/dL 05/09/21 13:16 AST 28 units/L (5-40) 05/09/21 13:16 ALT 37 units/L (7-56) 05/09/21 13:16 Alkaline Phosphatase 100 units/L (35-129) 05/09/21 13:16 Lactate Dehydrogenase 212 units/L (91-180) H 05/09/21 06:47 Total Creatine Kinase 189 units/L (30-135) H 05/02/21 05:53 Troponin T < 0.010 ng/mL (0.00-0.029) 05/02/21 05:16 C-Reactive Protein 12.90 mg/dL (0.00-1.30) H 05/09/21 06:47 NT-Pro-B Natriuret Pep 341.7 pg/mL (0-900) 05/02/21 05:17 Total Protein 8.3 g/dL (6.3-8.2) H 05/09/21 13:16 Albumin 2.6 g/dL (3.9-5) L 05/09/21 13:16 Albumin/Globulin Ratio 0.5 % 05/09/21 13:16 Triglycerides 62 mg/dL (2-149) 05/07/21 04:34 Procalcitonin 0.74 ng/mL (<0.15) 05/03/21 04:52 TSH 9.910 mlU/mL (0.270-4.200) H 05/07/21 04:34 Free T4 0.61 ng/dL (0.76-1.46) L 05/07/21 04:34 Heparin-induced Plt Ab Negative (Negative) 05/06/21 14:14 UF Heparin High Dose 0 % Release 05/06/21 14:14 ALEXEY UFH Low Dose 0.1 0 % Release 05/06/21 14:14 ALEXEY UFH Low Dose 0.5 0 % Release 05/06/21 14:14 Coronavirus (PCR) Positive (Negative) A 05/03/21 Unknown Blood Type O POSITIVE 05/11/21 17:20 Antibody Screen Negative 05/11/21 17:20 Crossmatch See Detail 05/11/21 17:20 Peoples/IV: Voiding Method Indwelling Catheter Active Medications - Current Medications Current Medications: Generic Name Dose Route Start Last Admin Trade Name Freq PRN Reason Stop Dose Admin Acetaminophen 650 mg 05/02/21 08:59 Acetaminophen 325 Mg/10.15 Ml Oral Liqd Unit Dose FEEDTUBE Q6H PRN Pain MILD(1-3)/Fever >100.5/[place] Acetylcysteine 200 mg 05/10/21 20:00 05/12/21 07:59 Acetylcysteine 20% 200 Mg/1 Ml *For Inhalation Use* INHALATION Not Given Q6HRT JHON Albuterol/Ipratropium 1 ampul 05/04/21 08:00 05/12/21 08:08 Ipratropium/Albuterol Sulfate 3 Ml Ampul.Neb IH 1 ampul TIDRT JHON Administration Budesonide 0.5 mg 05/02/21 10:00 05/12/21 08:08 Budesonide 0.5 Mg/2 Ml Nebu IH 0.5 mg Q12HRT JHON Administration Dextrose 0 ml 05/03/21 11:20 05/07/21 05:45 Dextrose 10% *Hypoglycemia IV 50 ml PRN PRN Administration Hypoglycemia Docusate Sodium 100 mg 05/03/21 12:00 05/12/21 09:08 Docusate Sodium 100 Mg/10 Ml Oral Liqd PO 100 mg BID JHON Administration Famotidine 10 mg 05/06/21 22:00 05/12/21 09:08 Famotidine 10 Mg Tab FEEDTUBE 10 mg BID JHON Administration Fentanyl 50 mcg 05/03/21 11:30 05/04/21 18:18 Fentanyl 100 Mcg/2 Ml Inj IV 50 mcg Q10MIN PRN Administration ANALGESIA Glycopyrrolate 1 mg 05/10/21 20:00 05/12/21 09:08 Glycopyrrolate 1 Mg Tab PO 1 mg TID JHON Administration Hydralazine HCl 25 mg 05/06/21 22:00 05/12/21 06:46 Hydralazine 25 Mg Tab PO Not Given Q8HR [facility] Hydralazine HCl 10 mg 05/07/21 19:25 05/12/21 01:00 Hydralazine 20 Mg/1 Ml Inj IV 10 mg Q4HR PRN Administration Hypertension Hydrophilic Ointment 1 applic 05/07/21 20:35 Lip Therapy Vaseline TP Q2HR PRN Dry Lips NORepinephrine/NS 8 MG-250 ML 8 mg in 250 mls @ 3.75 mls/hr 05/02/21 10:00 Norepinephrine/Ns 8 Mg-250 Ml (Double Conc) IV TITRATE [facility] Protocol 2 MCG/MIN Fentanyl Citrate 2,000 mcg in 100 mls @ 2.397 mls/hr 05/03/21 12:00 05/12/21 00:41 Fentanyl Drip Premix IV 1 mcg/kg/hr TITR JHON 2.397 mls/hr Administration Protocol 1 MCG/KG/HR Propofol 1,000 mg in 100 mls @ 1.438 mls/hr 05/04/21 22:00 05/08/21 06:17 Diprivan 10 Mg/Ml IV 0 mcg/kg/min TITR JHON 0 mls/hr Titration Protocol 5 MCG/KG/MIN Insulin Human Lispro 0 unit 05/09/21 00:00 05/12/21 12:52 Insulin Lispro 100 Unit/Ml SUB-Q Not Given Q6HR [facility] Protocol Levothyroxine Sodium 25 mcg 05/02/21 06:00 05/12/21 06:47 Levothyroxine 100 Mcg Inj IV Not Given DAILY@0600 [facility] Multi-Ingred Cream/Lotion/Oil/Oint 1 applic 05/07/21 20:35 Mineral Oil/Petrolatum, White Ophth Oint 3.5 Gm OU Q4HR PRN Dry Eye(s) Ondansetron HCl 4 mg 05/02/21 08:59 Ondansetron 4 Mg/2 Ml Inj IV Q8H PRN Nausea And Vomiting Polyethylene Glycol 17 gm 05/03/21 12:00 05/12/21 09:08 Polyethylene Glycol 3350 17 Gm Powder PO 17 gm QDAY JHON Administration Quetiapine Fumarate 100 mg 05/10/21 15:00 05/12/21 09:08 Quetiapine 100 Mg Tab PO 100 mg BID JHON Administration Quetiapine Fumarate 50 mg 05/10/21 16:00 05/12/21 09:08 Quetiapine 25 Mg Tab PO 50 mg BID JHON Administration Scopolamine 1 each 05/09/21 14:00 05/12/21 09:13 Scopolamine Transdermal Patch 72 Hr TD 1 each Q3D JHON Administration Senna/Docusate Sodium 1 tab 05/07/21 22:00 05/12/21 09:08 Sennosides/Docusate Sodium 8.6/50 Mg Tab FEEDTUBE 1 tab BID JHON Administration Sodium Chloride 10 ml 05/02/21 10:00 05/12/21 09:12 Sodium Chloride 0.9% 10 Ml Flush Syringe IV 10 ml BID JHON Administration Sodium Chloride 10 ml 05/02/21 08:59 Sodium Chloride 0.9% 10 Ml Flush Syringe IV PRN PRN LINE FLUSH Sodium Chloride 10 ml 05/06/21 09:58 05/08/21 21:30 Sodium Chloride 0.9% 50 Ml Ivpb IV 10 ml PRN PRN Administration FLUSH Nutrition/Malnutrition Assess - Dietary Evaluation Nutrition/Malnutrition Findings: Nutrition Notes Start: 05/03/21 14:27 Freq: Status: Active Protocol: Document 05/08/21 09:54 NATHALIE (Rec: 05/08/21 10:21 NATHALIE [id number]) Nutrition Notes Initial or Follow up Reassessment Current Diagnosis Hypertension,Respiratory Failure Other Pertinent Diagnosis COVID-19, Pneumonia, Bradycardia/PEA arrest, Constipation, Transaminitis, M Current Diet TF-Osmolite 1.5 Nando @ 40 ml/hr (since L 05/08). Labs/Tests 05/07: BUN 25. Pertinent Medications 05/08: Levothyroxine, others nutritionally unremarkable. Height 5 ft 6 in Weight 47.94 kg [place] Body Weight (kg) 59.09 BMI 17.0 Weight change and time frame No body weight changed in 2 days reported. Weight Status Underweight Subjective/Other Information RD consult for write/manage TF . Pt was extubated 05/07, and reintubated later, due to respiratory distress. TF prescription resumed. Percent of energy/protein needs met: Prescribed Osmolite 1.5 Nando @ 40 ml/hr provides for energy/ protein needs (1440 Kcal/60 g) during LOS, 100% Kcal; 100%AA . Burn Absent Trauma Absent GI Symptoms Constipation Food Allergy No Skin Integrity/Comment No skin breakdown reported Current % PO Other Minimum of two criteria No #1 Nutrition Diagnosis Inadequate oral intake Diagnosis Progress(for reassessment Continues documentation) Is patient on ventilator? Yes Is Patient Ambulatory and/or Out of Bed No REE-([facility]-confined to bed) 1119.252 Kcal/Kg value to use for calculation 30 Approximate Energy Requirements Using 1438 kcal/Kg Calculation Used for Recommendations 70-80% of EEN Additional Notes 15-20 Kcal/Kg ABW. Protein: 1.2-2 g/Kg; 58-96 g/ day. Fluids: 1 ml/Kcal, or as per MD. Nutrition Intervention Nutrition Support: Resume Osmolite 1.5 Nando @ 40 ml/hr. Flush: 120 ml water Q 4 hr, or as per MD. Kcal 1,440 Protein (gm) 60 Carbohydrates (gm) 195 Fat (gm) 47 Fluid (mL) 732 Fiber (gm) 0 % RDI: 100% Kcal; 100%AA. Goal #1 Provide at least 75% of energy /protein needs through Enteral Feeding during LOS. Goal #2 Maintain body weight within +/ -3% of admission body weight during LOS. Follow-Up By: 05/13/21 Additional Comments Continue monitoring TF tolerance and BM. <АННА GARCIA - Last Filed: 05/14/21 10:25> Assessment and Plan Assessment and plan: I saw and evaluated the patient. Discussed with the nurse practitioner and agree with their findings and plan as documented in this note. Hospitalist Physical - Constitutional Vitals: Temp Pulse Resp BP Pulse Ox 99 F 71 12 182/55 98 05/14/21 08:00 05/14/21 10:00 05/14/21 10:00 05/14/21 10:00 05/14/21 10:00 HEART Score - HEART Score Troponin: Troponin T < 0.010 ng/mL (0.00-0.029) 05/02/21 05:16 Results - Labs CBC & Chem 7: 05/14/21 05:15 05/14/21 05:15 Labs: Laboratory Last Values WBC 6.5 K/mm3 (4.5-11.0) 05/14/21 05:15 RBC 2.73 M/mm3 (3.65-5.03) L 05/14/21 05:15 Hgb 7.9 gm/dl (10.1-14.3) L 05/14/21 05:15 Hct 25.0 % (30.3-42.9) L 05/14/21 05:15 MCV 92 fl (79-97) 05/14/21 05:15 MCH 29 pg (28-32) 05/14/21 05:15 MCHC 32 % (30-34) 05/14/21 05:15 RDW 17.0 % (13.2-15.2) H 05/14/21 05:15 Plt Count 295 K/mm3 (140-440) 05/14/21 05:15 Lymph % (Auto) 10.4 % (13.4-35.0) L 05/04/21 09:41 [place] % (Auto) 4.9 % (0.0-7.3) 05/04/21 09:41 Eos % (Auto) 0.0 % (0.0-4.3) 05/04/21 09:41 Baso % (Auto) 0.0 % (0.0-1.8) 05/04/21 09:41 Lymph # (Auto) 0.6 K/mm3 (1.2-5.4) L 05/04/21 09:41 [place] # (Auto) 0.3 K/mm3 (0.0-0.8) 05/04/21 09:41 Eos # (Auto) 0.0 K/mm3 (0.0-0.4) 05/04/21 09:41 Baso # (Auto) 0.0 K/mm3 (0.0-0.1) 05/04/21 09:41 Add Manual Diff Complete 05/03/21 04:52 Total Counted 100 05/03/21 04:52 Seg Neutrophils % 84.7 % (40.0-70.0) H 05/04/21 09:41 Seg Neuts % (Manual) 86.0 % (40.0-70.0) H 05/03/21 04:52 Band Neutrophils % 8.0 % 05/03/21 04:52 Lymphocytes % (Manual) 3.0 % (13.4-35.0) L 05/03/21 04:52 Reactive Lymphs % (Man) 0 % 05/03/21 04:52 Monocytes % (Manual) 2.0 % (0.0-7.3) 05/03/21 04:52 Eosinophils % (Manual) 1.0 % (0.0-4.3) 05/03/21 04:52 Basophils % (Manual) 0 % (0.0-1.8) 05/03/21 04:52 Metamyelocytes % 0 % 05/03/21 04:52 Myelocytes % 0 % 05/03/21 04:52 Promyelocytes % 0 % 05/03/21 04:52 Blast Cells % 0 % 05/03/21 04:52 Nucleated RBC % Not Reportable 05/03/21 04:52 Seg Neutrophils # 4.6 K/mm3 (1.8-7.7) 05/04/21 09:41 Seg Neutrophils # Man 3.9 K/mm3 (1.8-7.7) 05/03/21 04:52 Band Neutrophils # 0.4 K/mm3 05/03/21 04:52 Lymphocytes # (Manual) 0.1 K/mm3 (1.2-5.4) L 05/03/21 04:52 Abs React Lymphs (Man) 0.0 K/mm3 05/03/21 04:52 Monocytes # (Manual) 0.1 K/mm3 (0.0-0.8) 05/03/21 04:52 Eosinophils # (Manual) 0.0 K/mm3 (0.0-0.4) 05/03/21 04:52 Basophils # (Manual) 0.0 K/mm3 (0.0-0.1) 05/03/21 04:52 Metamyelocytes # 0.0 K/mm3 05/03/21 04:52 Myelocytes # 0.0 K/mm3 05/03/21 04:52 Promyelocytes # 0.0 K/mm3 05/03/21 04:52 Blast Cells # 0.0 K/mm3 05/03/21 04:52 WBC Morphology Not Reportable 05/03/21 04:52 Hypersegmented Neuts Not Reportable 05/03/21 04:52 Hyposegmented Neuts Not Reportable 05/03/21 04:52 Hypogranular Neuts Not Reportable 05/03/21 04:52 Smudge Cells Not Reportable 05/03/21 04:52 Toxic Granulation Not Reportable 05/03/21 04:52 Toxic Vacuolation Not Reportable 05/03/21 04:52 Dohle Bodies Not Reportable 05/03/21 04:52 Pelger-Huet Anomaly Not Reportable 05/03/21 04:52 Shanti Rods Not Reportable 05/03/21 04:52 Platelet Estimate Consistent w auto 05/03/21 04:52 Clumped Platelets Not Reportable 05/03/21 04:52 Plt Clumps, EDTA Not Reportable 05/03/21 04:52 Large Platelets Not Reportable 05/03/21 04:52 Giant Platelets Not Reportable 05/03/21 04:52 Platelet Satelliting Not Reportable 05/03/21 04:52 Plt Morphology Comment Not Reportable 05/03/21 04:52 RBC Morphology Not Reportable 05/03/21 04:52 Dimorphic RBCs Not Reportable 05/03/21 04:52 Polychromasia Not Reportable 05/03/21 04:52 Hypochromasia 2+ 05/03/21 04:52 Poikilocytosis Not Reportable 05/03/21 04:52 Anisocytosis 1+ 05/03/21 04:52 Microcytosis Not Reportable 05/03/21 04:52 Macrocytosis Few 05/03/21 04:52 Spherocytes Not Reportable 05/03/21 04:52 Pappenheimer Bodies Not Reportable 05/03/21 04:52 Sickle Cells Not Reportable 05/03/21 04:52 Target Cells Not Reportable 05/03/21 04:52 Tear Drop Cells Not Reportable 05/03/21 04:52 Ovalocytes Few 05/03/21 04:52 Helmet Cells Not Reportable 05/03/21 04:52 [place] Bodies Not Reportable 05/03/21 04:52 [place] Rings Not Reportable 05/03/21 04:52 Jossue Cells Not Reportable 05/03/21 04:52 Bite Cells Not Reportable 05/03/21 04:52 Crenated Cell Not Reportable 05/03/21 04:52 Elliptocytes Not Reportable 05/03/21 04:52 Acanthocytes (Spur) Not Reportable 05/03/21 04:52 Rouleaux Not Reportable 05/03/21 04:52 Hemoglobin C Crystals Not Reportable 05/03/21 04:52 Schistocytes Not Reportable 05/03/21 04:52 Malaria parasites Not Reportable 05/03/21 04:52 Anatoly Bodies Not Reportable 05/03/21 04:52 Hem Pathologist Commnt No 05/03/21 04:52 PT 15.1 Sec. (12.2-14.9) H 05/02/21 05:16 INR 1.07 (0.87-1.13) 05/02/21 05:16 APTT 41.7 Sec. (24.2-36.6) H 05/02/21 05:16 D-Dimer 2342.13 ng/mlDDU (0-234) H 05/09/21 06:47 Heparin Anti-Xa, Unfract Negative (Negative) 05/06/21 14:14 ABG pH 7.502 pH Units (7.350-7.450) H 05/12/21 08:25 ABG pCO2 45.2 mm Hg 05/12/21 08:25 ABG pO2 223.9 mm Hg (80.0-90.0) H 05/12/21 08:25 ABG HCO3 34.6 mmol/L (20.0-26.0) H 05/12/21 08:25 ABG O2 Saturation 99.4 % (95.0-99.0) H 05/12/21 08:25 ABG O2 Content 7.9 (0.0-44) 05/12/21 08:25 ABG Base Excess 10.5 mmol/L (-2.0-3.0) H 05/12/21 08:25 ABG Hemoglobin 5.3 gm/dl (12.0-16.0) L 05/12/21 08:25 ABG Carboxyhemoglobin 1.8 % (0.0-5.0) 05/12/21 08:25 ABG Methemoglobin 0.5 % (0.0-1.5) 05/12/21 08:25 Oxyhemoglobin 97.1 % (95.0-99.0) 05/12/21 08:25 FiO2 40 % 05/12/21 08:25 Sodium 142 mmol/L (137-145) 05/14/21 05:15 Potassium 4.2 mmol/L (3.6-5.0) 05/14/21 05:15 Chloride 100.2 mmol/L (98-107) 05/14/21 05:15 Carbon Dioxide 31 mmol/L (22-30) H 05/14/21 05:15 Anion Gap 15 mmol/L 05/14/21 05:15 BUN 40 mg/dL (7-17) H 05/14/21 05:15 Creatinine 0.9 mg/dL (0.6-1.2) 05/14/21 05:15 Estimated GFR > 60 ml/min 05/14/21 05:15 BUN/Creatinine Ratio 44 % 05/14/21 05:15 Glucose 114 mg/dL (65-100) H 05/14/21 05:15 POC Glucose 113 mg/dL (70-105) H 05/14/21 05:26 Lactic Acid 0.80 mmol/L (0.7-2.0) 05/02/21 05:53 Calcium 9.4 mg/dL (8.4-10.2) 05/14/21 05:15 Phosphorus 2.90 mg/dL (2.5-4.5) D 05/06/21 04:56 Magnesium 2.70 mg/dL (1.7-2.3) H 05/11/21 04:43 Ferritin 500.1 ng/mL (10.0-200.0) H 05/09/21 06:47 Total Bilirubin 0.20 mg/dL (0.1-1.2) 05/09/21 13:16 Direct Bilirubin < 0.2 mg/dL (0-0.2) 05/09/21 13:16 Indirect Bilirubin 0.0 mg/dL 05/09/21 13:16 AST 28 units/L (5-40) 05/09/21 13:16 ALT 37 units/L (7-56) 05/09/21 13:16 Alkaline Phosphatase 100 units/L (35-129) 05/09/21 13:16 Lactate Dehydrogenase 212 units/L (91-180) H 05/09/21 06:47 Total Creatine Kinase 189 units/L (30-135) H 05/02/21 05:53 Troponin T < 0.010 ng/mL (0.00-0.029) 05/02/21 05:16 C-Reactive Protein 12.90 mg/dL (0.00-1.30) H 05/09/21 06:47 NT-Pro-B Natriuret Pep 341.7 pg/mL (0-900) 05/02/21 05:17 Total Protein 8.3 g/dL (6.3-8.2) H 05/09/21 13:16 Albumin 2.6 g/dL (3.9-5) L 05/09/21 13:16 Albumin/Globulin Ratio 0.5 % 05/09/21 13:16 Triglycerides 62 mg/dL (2-149) 05/07/21 04:34 Procalcitonin 0.74 ng/mL (<0.15) 05/03/21 04:52 TSH 9.910 mlU/mL (0.270-4.200) H 05/07/21 04:34 Free T4 0.61 ng/dL (0.76-1.46) L 05/07/21 04:34 Heparin-induced Plt Ab Negative (Negative) 05/06/21 14:14 UF Heparin High Dose 0 % Release 05/06/21 14:14 ALEEXY UFH Low Dose 0.1 0 % Release 05/06/21 14:14 ALEXEY UFH Low Dose 0.5 0 % Release 05/06/21 14:14 Coronavirus (PCR) Positive (Negative) A 05/03/21 Unknown Blood Type O POSITIVE 05/11/21 17:20 Antibody Screen Negative 05/11/21 17:20 Crossmatch See Detail 05/11/21 17:20 Peoples/IV: Voiding Method Incontinent Active Medications - Current Medications Current Medications: Generic Name Dose Route Start Last Admin Trade Name Freq PRN Reason Stop Dose Admin Acetaminophen 650 mg 05/02/21 08:59 Acetaminophen 325 Mg/10.15 Ml Oral Liqd Unit Dose FEEDTUBE Q6H PRN Pain MILD(1-3)/Fever >100.5/[place] Albuterol/Ipratropium 1 ampul 05/04/21 08:00 05/14/21 08:41 Ipratropium/Albuterol Sulfate 3 Ml Ampul.Neb IH Not Given TIDRT JHON Bisacodyl 10 mg 05/13/21 17:13 Bisacodyl 10 Mg Rect Supp [place] QDAY PRN Constipation Budesonide 0.5 mg 05/02/21 10:00 05/14/21 08:41 Budesonide 0.5 Mg/2 Ml Nebu IH Not Given Q12HRT [facility] Dextrose 0 ml 05/03/21 11:20 05/07/21 05:45 Dextrose 10% *Hypoglycemia IV 50 ml PRN PRN Administration Hypoglycemia Docusate Sodium 100 mg 05/03/21 12:00 05/14/21 09:36 Docusate Sodium 100 Mg/10 Ml Oral Liqd PO Not Given BID [facility] Famotidine 10 mg 05/06/21 22:00 05/14/21 09:50 Famotidine 10 Mg Tab FEEDTUBE 10 mg BID JHON Administration Fentanyl 50 mcg 05/03/21 11:30 05/04/21 18:18 Fentanyl 100 Mcg/2 Ml Inj IV 50 mcg Q10MIN PRN Administration ANALGESIA Glycopyrrolate 1 mg 05/10/21 20:00 05/14/21 09:50 Glycopyrrolate 1 Mg Tab PO 1 mg TID [facility] Administration Hydralazine HCl 25 mg 05/06/21 22:00 05/14/21 05:24 Hydralazine 25 Mg Tab PO 25 mg Q8HR JHON Administration Hydralazine HCl 10 mg 05/07/21 19:25 05/13/21 18:57 Hydralazine 20 Mg/1 Ml Inj IV 10 mg Q4HR PRN Administration Hypertension Hydrophilic Ointment 1 applic 05/07/21 20:35 Lip Therapy Vaseline TP Q2HR PRN Dry Lips NORepinephrine/NS 8 MG-250 ML 8 mg in 250 mls @ 3.75 mls/hr 05/02/21 10:00 Norepinephrine/Ns 8 Mg-250 Ml (Double Conc) IV TITRATE [facility] Protocol 2 MCG/MIN Fentanyl Citrate 2,000 mcg in 100 mls @ 2.397 mls/hr 05/03/21 12:00 05/14/21 09:52 Fentanyl Drip Premix IV Infused TITR [facility] Titration Protocol 1 MCG/KG/HR Insulin Human Lispro 0 unit 05/09/21 00:00 05/14/21 06:12 Insulin Lispro 100 Unit/Ml SUB-Q Not Given Q6HR [facility] Protocol Levothyroxine Sodium 25 mcg 05/02/21 06:00 05/14/21 06:13 Levothyroxine 100 Mcg Inj IV 25 mcg DAILY@0600 JHON Administration Multi-Ingred Cream/Lotion/Oil/Oint 1 applic 05/07/21 20:35 Mineral Oil/Petrolatum, White Ophth Oint 3.5 Gm OU Q4HR PRN Dry Eye(s) Ondansetron HCl 4 mg 05/02/21 08:59 Ondansetron 4 Mg/2 Ml Inj IV Q8H PRN Nausea And Vomiting Polyethylene Glycol 17 gm 05/03/21 12:00 05/14/21 09:36 Polyethylene Glycol 3350 17 Gm Powder PO Not Given QDAY J[facility]ON Quetiapine Fumarate 150 mg 05/14/21 10:00 05/14/21 09:51 Quetiapine 100 Mg Tab PO 150 mg QAM JHON Administration Quetiapine Fumarate 250 mg 05/13/21 22:00 05/13/21 23:10 Quetiapine 100 Mg Tab PO 250 mg QHS JHON Administration Scopolamine 1 each 05/09/21 14:00 05/12/21 09:13 Scopolamine Transdermal Patch 72 Hr TD 1 each Q3D J[facility]ON Administration Senna/Docusate Sodium 2 tab 05/13/21 22:00 05/13/21 22:18 Sennosides/Docusate Sodium 8.6/50 Mg Tab FEEDTUBE 2 tab BID JHON Administration Sodium Chloride 10 ml 05/02/21 10:00 05/13/21 22:10 Sodium Chloride 0.9% 10 Ml Flush Syringe IV 10 ml BID JHON Administration Sodium Chloride 10 ml 05/02/21 08:59 Sodium Chloride 0.9% 10 Ml Flush Syringe IV PRN PRN LINE FLUSH Sodium Chloride 10 ml 05/06/21 09:58 05/08/21 21:30 Sodium Chloride 0.9% 50 Ml Ivpb IV 10 ml PRN PRN Administration FLUSH Nutrition/Malnutrition Assess - Dietary Evaluation Nutrition/Malnutrition Findings: Nutrition Notes Start: 05/03/21 14:27 Freq: Status: Active Protocol: Document 05/13/21 15:28 MEKA (Rec: 05/13/21 15:35 MEKA [id number]) Nutrition Notes Initial or Follow up Reassessment Current Diagnosis Hypertension,Respiratory Failure Other Pertinent Diagnosis COVID-19, Pneumonia, Bradycardia/PEA arrest, Constipation, Transaminitis, M Current Diet TF - Osmolite 1.5 at 40ml/hr Labs/Tests BUN 59 Cr 1.3 Pertinent Medications Reviewed Height 5 ft 6 in Weight 47.94 kg [place] Body Weight (kg) 59.09 BMI 17.0 Weight Status Underweight Subjective/Other Information Pt remains on vent support. Pt scheduled for trach/PEG placement tomorrow. Per RN, pt tolerating TF; last BM was 05/10. Pt receives colace, senokot, and miralax daily. Percent of energy/protein needs met: 100% energy and pro Burn Absent Trauma Absent GI Symptoms Constipation #1 Nutrition Diagnosis Inadequate oral intake Diagnosis Progress(for reassessment Continues documentation) Is patient on ventilator? Yes Is Patient Ambulatory and/or Out of Bed No REE-([place]-confined to bed) 1119.252 Kcal/Kg value to use for calculation 30 Approximate Energy Requirements Using 1438 kcal/Kg Calculation Used for Recommendations Kcal/kg Additional Notes Pro needs 1.2-2g/k-96g/ day Fluid needs 1ml/kcal Nutrition Intervention Nutrition Support: Continue Osmolite 1.5 at 40ml/ hr with scheduled water flushes. Kcal 1,440 Protein (gm) 60 Carbohydrates (gm) 195 Fat (gm) 47 Fluid (mL) 732 Fiber (gm) 0 Goal #1 TF tolerance Goal #2 TF to meet 100% energy and pro needs Goal #3 Wt maintenance and/or gain Follow-Up By: 05/17/21 Additional Comments F/U: Trach/PEG placement, BM, vent status
--- NOTE | 2021-05-12 14:50 | Progress Note ---
Assessment and Plan Symptomatic bradycardia with subsequent PEA arrest status post ROSC Acute hypoxic respiratory failure Cardiogenic shock Hypothyroidism Thrombocytopenia Acute metabolic encephalopathy Leukopenia Anemia Transaminitis Hypothermia Hyperkalemia - get CXR now and reposition ETT as necessary - tracheostomy consult placed + PEG - tentative bronchoscopy in am to evaluate trachea and sub-glottic region - continue care as below otherwise; - continue Robinul and Mucomyst for better secretion control - continue Seroquel - wean vasopressors for target MAP > 65 mmHg - continue Daily SAT and SBT assessment as tolerated - continue bronchodilators with pulmonary hygiene per RT - continue to wean supplemental oxygen for target O2 sat's > 90% acutely - VAP bundle addressed - continue lung protective strategies - continue bronchodilators with pulmonary hygiene per RT - wean per pulmonary driven protocols otherwise - sedation prn for target RASS 0 to -1 - AB's per ID recommendations - continue accuchecks with glycemic control per SSI (While critically ill target blood glucose of 140-180 mg/dL; avoid hypoglycemia) - avoid nephrotoxins, renally dose all medications - continue to avoid benzodiazepine's, reduce the possibility of delirium - prn analgesia per CPOT score - Maintenance of sleep-wake cycle, avoid delirium - continue enteral nutritional support at goal rate as tolerated - G.I. & VTE prophylaxis (VTE prophylaxis with SCDs; She has required supportive blood transfusions and has thrombocytopenia) - PT/OT/ROM exercises - mobility protocols for pressure ulcer prophylaxis - Monitor hemodynamics closely - continue other care per attending / other consultants - discharge planning ongoing concurrently COVID SPECIFIC INTERVENTIONS - Remdesivir as per ID/Pulmonary developed protocols - continue systemic steroids for severe COVID-19 infection empirically (Dexamethasone) - follow repeat COVID tests results - zinc and vitamin C supplementation - Monitor inflammatory markers per facility protocol - ferritin, Ddimer, CRP - therapeutic anticoagulation per system Protocol based on d-dimer and clinical considerations - Continue contact and airborne isolation .... Re-evaluate in am & prn CONDITION: CRITICAL PROGNOSIS: GUARDED CODE STATUS: FULL CODE The high probability of a clinically significant, sudden or life-threatening deterioration of the [respiratory, cardiovascular & neurologic] system(s) required my full and direct attention, intervention and personal management. The aggregate critical care time was [34] minutes without overlap. Time includes spent on; [x] Data Review and interpretation [x] Patient assessment and monitoring of vital signs [x] Documentation [x] Medication orders and management Subjective Date of service: 05/12/21 Principal diagnosis: Symptomatic bradycardia; AHRF; Cardiogenic shock; Thrombocytopenia; AMS Interval history: Patient is seen today for: Symptomatic bradycardia; Acute hypoxic respiratory failure; Cardiogenic shock; Hypothyroidism; Thrombocytopenia; AMS; Hyperkalemia Seen and examined at bedside; 24hour events reviewed; nursing and respiratory care staff consulted; no adverse overnight events reported to me; resting in bed; failed extubation rather quickly yesterday and back on MVS; intubating physician reports subglottic obstruction; no emesis or overt aspiration otherwise Objective Vital Signs - 12hr 05/12/21 05/12/21 05/12/21 03:00 03:30 03:59 Temperature 98.5 F Pulse Rate 83 79 Pulse Rate [ Anterior Bilateral Throughout] Pulse Rate [ From Monitor] Respiratory 14 11 L Rate Respiratory Rate [Anterior Bilateral Throughout] Blood Pressure 165/67 162/64 O2 Sat by Pulse 97 97 Oximetry 05/12/21 05/12/21 05/12/21 04:00 04:07 04:30 Temperature Pulse Rate 84 91 H 83 Pulse Rate [ Anterior Bilateral Throughout] Pulse Rate [ 90 From Monitor] Respiratory 15 15 Rate Respiratory Rate [Anterior Bilateral Throughout] Blood Pressure 140/68 140/68 151/57 O2 Sat by Pulse 97 96 96 Oximetry 05/12/21 05/12/21 05/12/21 05:00 05:30 06:00 Temperature Pulse Rate 82 88 81 Pulse Rate [ Anterior Bilateral Throughout] Pulse Rate [ From Monitor] Respiratory 14 15 14 Rate Respiratory Rate [Anterior Bilateral Throughout] Blood Pressure 151/57 136/54 118/59 O2 Sat by Pulse 96 97 98 Oximetry 05/12/21 05/12/21 05/12/21 06:30 07:00 07:30 Temperature Pulse Rate 81 90 84 Pulse Rate [ Anterior Bilateral Throughout] Pulse Rate [ From Monitor] Respiratory 16 13 15 Rate Respiratory Rate [Anterior Bilateral Throughout] Blood Pressure 140/56 140/56 140/56 O2 Sat by Pulse 98 98 98 Oximetry 05/12/21 05/12/21 05/12/21 07:38 08:00 08:30 Temperature 98.4 F Pulse Rate 79 81 77 Pulse Rate [ 81 Anterior Bilateral Throughout] Pulse Rate [ 79 From Monitor] Respiratory 14 15 Rate Respiratory 14 Rate [Anterior Bilateral Throughout] Blood Pressure 143/61 143/61 139/56 O2 Sat by Pulse 97 97 98 Oximetry 05/12/21 05/12/21 05/12/21 09:00 09:30 10:00 Temperature Pulse Rate 78 86 83 Pulse Rate [ Anterior Bilateral Throughout] Pulse Rate [ From Monitor] Respiratory 12 18 13 Rate Respiratory Rate [Anterior Bilateral Throughout] Blood Pressure 133/54 133/54 153/59 O2 Sat by Pulse 98 98 96 Oximetry 05/12/21 05/12/21 05/12/21 10:30 11:00 11:17 Temperature Pulse Rate 79 79 74 Pulse Rate [ Anterior Bilateral Throughout] Pulse Rate [ From Monitor] Respiratory 14 12 Rate Respiratory Rate [Anterior Bilateral Throughout] Blood Pressure 127/49 125/47 125/47 O2 Sat by Pulse 97 95 95 Oximetry 05/12/21 05/12/21 05/12/21 11:30 12:00 12:30 Temperature Pulse Rate 74 73 71 Pulse Rate [ Anterior Bilateral Throughout] Pulse Rate [ 72 From Monitor] Respiratory 11 L 13 12 Rate Respiratory Rate [Anterior Bilateral Throughout] Blood Pressure 123/49 125/51 122/50 O2 Sat by Pulse 95 96 97 Oximetry 05/12/21 05/12/21 05/12/21 13:00 13:30 14:00 Temperature Pulse Rate 73 68 69 Pulse Rate [ Anterior Bilateral Throughout] Pulse Rate [ From Monitor] Respiratory 12 12 11 L Rate Respiratory Rate [Anterior Bilateral Throughout] Blood Pressure 124/52 123/51 120/52 O2 Sat by Pulse 96 97 97 Oximetry 05/12/21 05/12/21 14:36 14:41 Temperature Pulse Rate 69 66 Pulse Rate [ Anterior Bilateral Throughout] Pulse Rate [ From Monitor] Respiratory Rate Respiratory Rate [Anterior Bilateral Throughout] Blood Pressure 126/53 126/53 O2 Sat by Pulse 97 Oximetry Constitutional: no acute distress, other (elderly female with mildly increased respiratory effort at rest on MVS) Eyes: non-icteric ENT: oropharynx moist, other (ETT 24 cm HIMANSHU) Neck: supple, no lymphadenopathy, no JVD Effort: mildly labored Ascultation: Bilateral: diminished breath sounds, rales (bilateral) Percussion: Bilateral: not dull Cardiovascular: regular rate and rhythm, other (S1,S2) Gastrointestinal: normoactive bowel sounds, soft, non-distended, other (distended suprapubic area- possibly bladder) Integumentary: normal Extremities: no cyanosis, no edema, pulses normal, no ischemia or petechiae Neurologic: non-focal exam (grossly), pupils equal and round, unable to assess, other (sedated) Psychiatric: anxious, other (delirious) CBC and BMP: 05/12/21 07:20 05/12/21 07:20 ABG, PT/INR, D-dimer: ABG ABG pH 7.502 pH Units (7.350-7.450) H 05/12/21 08:25 ABG pCO2 45.2 mm Hg 05/12/21 08:25 ABG pO2 223.9 mm Hg (80.0-90.0) H 05/12/21 08:25 ABG O2 Saturation 99.4 % (95.0-99.0) H 05/12/21 08:25 PT/INR, D-dimer PT 15.1 Sec. (12.2-14.9) H 05/02/21 05:16 INR 1.07 (0.87-1.13) 05/02/21 05:16 D-Dimer 2342.13 ng/mlDDU (0-234) H 05/09/21 06:47 Abnormal lab findings: Abnormal Labs 05/02/21 05/02/21 05/02/21 05:16 05:16 05:16 WBC 2.9 L RBC 2.36 L Hgb 7.4 L Hct 22.2 L RDW 18.2 H Plt Count Lymph % (Auto) Lymph # (Auto) 0.5 L Seg Neutrophils % 76.5 H Seg Neuts % (Manual) Lymphocytes % (Manual) Lymphocytes # (Manual) PT 15.1 H APTT 41.7 H D-Dimer ABG pH ABG pO2 ABG HCO3 ABG O2 Saturation ABG Base Excess ABG Hemoglobin Oxyhemoglobin Sodium 129 L Potassium 6.2 H* Chloride 97.0 L Carbon Dioxide BUN Creatinine Glucose POC Glucose Magnesium Ferritin AST ALT Lactate Dehydrogenase Total Creatine Kinase C-Reactive Protein Total Protein Albumin TSH Free T4 Coronavirus (PCR) Crossmatch 05/02/21 05/02/21 05/02/21 05:17 05:53 06:41 WBC RBC Hgb Hct RDW Plt Count Lymph % (Auto) Lymph # (Auto) Seg Neutrophils % Seg Neuts % (Manual) Lymphocytes % (Manual) Lymphocytes # (Manual) PT APTT D-Dimer ABG pH ABG pO2 ABG HCO3 ABG O2 Saturation ABG Base Excess ABG Hemoglobin Oxyhemoglobin Sodium Potassium Chloride Carbon Dioxide BUN Creatinine Glucose POC Glucose Magnesium Ferritin AST 144 H ALT 115 H Lactate Dehydrogenase Total Creatine Kinase 189 H C-Reactive Protein Total Protein 9.6 H Albumin 2.9 L TSH 10.350 H Free T4 0.61 L Coronavirus (PCR) Crossmatch 05/02/21 05/02/21 05/03/21 11:50 15:56 04:52 WBC RBC 2.20 L Hgb 6.8 L Hct 20.6 L RDW 18.4 H Plt Count Lymph % (Auto) Lymph # (Auto) Seg Neutrophils % Seg Neuts % (Manual) 86.0 H Lymphocytes % (Manual) 3.0 L Lymphocytes # (Manual) 0.1 L PT APTT D-Dimer ABG pH ABG pO2 352.4 H ABG HCO3 ABG O2 Saturation 99.5 H ABG Base Excess ABG Hemoglobin 6.9 L Oxyhemoglobin Sodium Potassium 5.8 H Chloride Carbon Dioxide BUN Creatinine Glucose POC Glucose Magnesium Ferritin AST ALT Lactate Dehydrogenase Total Creatine Kinase C-Reactive Protein Total Protein Albumin TSH Free T4 Coronavirus (PCR) Crossmatch 05/03/21 05/03/21 05/03/21 04:52 10:10 10:23 WBC RBC Hgb Hct RDW Plt Count Lymph % (Auto) Lymph # (Auto) Seg Neutrophils % Seg Neuts % (Manual) Lymphocytes % (Manual) Lymphocytes # (Manual) PT APTT D-Dimer ABG pH ABG pO2 177.2 H ABG HCO3 ABG O2 Saturation 99.1 H ABG Base Excess ABG Hemoglobin 7.1 L Oxyhemoglobin Sodium 129 L Potassium 6.2 H* Chloride 97.0 L Carbon Dioxide BUN 25 H Creatinine Glucose POC Glucose 106 H Magnesium Ferritin AST 152 H ALT 127 H Lactate Dehydrogenase Total Creatine Kinase C-Reactive Protein Total Protein 8.6 H Albumin 2.6 L TSH Free T4 Coronavirus (PCR) Crossmatch 05/03/21 05/03/21 05/03/21 13:11 14:13 16:49 WBC RBC Hgb Hct RDW Plt Count Lymph % (Auto) Lymph # (Auto) Seg Neutrophils % Seg Neuts % (Manual) Lymphocytes % (Manual) Lymphocytes # (Manual) PT APTT D-Dimer ABG pH ABG pO2 ABG HCO3 ABG O2 Saturation ABG Base Excess ABG Hemoglobin Oxyhemoglobin Sodium Potassium Chloride Carbon Dioxide BUN Creatinine Glucose POC Glucose 116 H 58 L Magnesium Ferritin AST ALT Lactate Dehydrogenase Total Creatine Kinase C-Reactive Protein Total Protein Albumin TSH Free T4 Coronavirus (PCR) Crossmatch See Detail 05/03/21 05/03/21 05/03/21 17:34 19:58 20:07 WBC RBC Hgb Hct RDW Plt Count Lymph % (Auto) Lymph # (Auto) Seg Neutrophils % Seg Neuts % (Manual) Lymphocytes % (Manual) Lymphocytes # (Manual) PT APTT D-Dimer ABG pH ABG pO2 ABG HCO3 ABG O2 Saturation ABG Base Excess ABG Hemoglobin Oxyhemoglobin Sodium 131 L Potassium 5.7 H Chloride 97.7 L Carbon Dioxide 21 L BUN 28 H Creatinine 1.4 H Glucose 130 H POC Glucose 123 H 122 H Magnesium Ferritin AST ALT Lactate Dehydrogenase Total Creatine Kinase C-Reactive Protein Total Protein Albumin TSH Free T4 Coronavirus (PCR) Crossmatch 05/03/21 05/03/21 05/04/21 Unknown 23:59 02:59 WBC RBC Hgb Hct RDW Plt Count Lymph % (Auto) Lymph # (Auto) Seg Neutrophils % Seg Neuts % (Manual) Lymphocytes % (Manual) Lymphocytes # (Manual) PT APTT D-Dimer ABG pH ABG pO2 ABG HCO3 ABG O2 Saturation ABG Base Excess ABG Hemoglobin Oxyhemoglobin Sodium Potassium Chloride Carbon Dioxide BUN Creatinine Glucose POC Glucose 117 H 142 H Magnesium Ferritin AST ALT Lactate Dehydrogenase Total Creatine Kinase C-Reactive Protein Total Protein Albumin TSH Free T4 Coronavirus (PCR) Positive A Crossmatch 05/04/21 05/04/21 05/04/21 03:15 09:41 09:41 WBC RBC 2.28 L Hgb 7.1 L Hct 21.4 L RDW 18.5 H Plt Count 97 L Lymph % (Auto) 10.4 L Lymph # (Auto) 0.6 L Seg Neutrophils % 84.7 H Seg Neuts % (Manual) Lymphocytes % (Manual) Lymphocytes # (Manual) PT APTT D-Dimer ABG pH ABG pO2 ABG HCO3 ABG O2 Saturation ABG Base Excess ABG Hemoglobin 6.9 L Oxyhemoglobin 94.9 L Sodium 132 L Potassium Chloride Carbon Dioxide 21 L BUN 33 H Creatinine 1.4 H Glucose 143 H POC Glucose Magnesium Ferritin AST ALT Lactate Dehydrogenase Total Creatine Kinase C-Reactive Protein Total Protein Albumin TSH Free T4 Coronavirus (PCR) Crossmatch 05/04/21 05/04/21 05/04/21 11:43 16:48 21:31 WBC RBC Hgb Hct RDW Plt Count Lymph % (Auto) Lymph # (Auto) Seg Neutrophils % Seg Neuts % (Manual) Lymphocytes % (Manual) Lymphocytes # (Manual) PT APTT D-Dimer ABG pH ABG pO2 ABG HCO3 ABG O2 Saturation ABG Base Excess ABG Hemoglobin Oxyhemoglobin Sodium Potassium Chloride Carbon Dioxide BUN Creatinine Glucose POC Glucose 125 H 129 H 124 H Magnesium Ferritin AST ALT Lactate Dehydrogenase Total Creatine Kinase C-Reactive Protein Total Protein Albumin TSH Free T4 Coronavirus (PCR) Crossmatch 05/05/21 05/05/21 05/05/21 01:32 02:30 04:35 WBC RBC Hgb Hct RDW Plt Count Lymph % (Auto) Lymph # (Auto) Seg Neutrophils % Seg Neuts % (Manual) Lymphocytes % (Manual) Lymphocytes # (Manual) PT APTT D-Dimer ABG pH ABG pO2 123.1 H ABG HCO3 ABG O2 Saturation ABG Base Excess ABG Hemoglobin 5.9 L Oxyhemoglobin Sodium Potassium Chloride Carbon Dioxide BUN Creatinine Glucose POC Glucose 128 H Magnesium Ferritin AST 54 H ALT 70 H Lactate Dehydrogenase Total Creatine Kinase C-Reactive Protein Total Protein 8.4 H Albumin 2.5 L TSH Free T4 Coronavirus (PCR) Crossmatch 05/05/21 05/05/21 05/05/21 04:35 04:35 06:11 WBC 4.4 L RBC 2.04 L Hgb 6.3 L Hct 19.1 L* RDW 18.3 H Plt Count 77 L Lymph % (Auto) Lymph # (Auto) Seg Neutrophils % Seg Neuts % (Manual) Lymphocytes % (Manual) Lymphocytes # (Manual) PT APTT D-Dimer ABG pH ABG pO2 ABG HCO3 ABG O2 Saturation ABG Base Excess ABG Hemoglobin Oxyhemoglobin Sodium 131 L Potassium Chloride Carbon Dioxide 21 L BUN 31 H Creatinine Glucose 158 H POC Glucose 165 H Magnesium 2.40 H Ferritin AST ALT Lactate Dehydrogenase Total Creatine Kinase C-Reactive Protein Total Protein Albumin TSH Free T4 Coronavirus (PCR) Crossmatch 05/05/21 05/05/21 05/05/21 07:20 17:01 23:25 WBC RBC Hgb Hct RDW Plt Count Lymph % (Auto) Lymph # (Auto) Seg Neutrophils % Seg Neuts % (Manual) Lymphocytes % (Manual) Lymphocytes # (Manual) PT APTT D-Dimer ABG pH ABG pO2 ABG HCO3 ABG O2 Saturation ABG Base Excess ABG Hemoglobin Oxyhemoglobin Sodium Potassium Chloride Carbon Dioxide BUN Creatinine Glucose POC Glucose 152 H 114 H 148 H Magnesium Ferritin AST ALT Lactate Dehydrogenase Total Creatine Kinase C-Reactive Protein Total Protein Albumin TSH Free T4 Coronavirus (PCR) Crossmatch 05/06/21 05/06/21 05/06/21 04:56 04:56 05:37 WBC RBC 2.54 L Hgb 7.7 L Hct 23.2 L RDW 18.1 H Plt Count 73 L Lymph % (Auto) Lymph # (Auto) Seg Neutrophils % Seg Neuts % (Manual) Lymphocytes % (Manual) Lymphocytes # (Manual) PT APTT D-Dimer ABG pH ABG pO2 ABG HCO3 ABG O2 Saturation ABG Base Excess ABG Hemoglobin Oxyhemoglobin Sodium 134 L Potassium 5.1 H Chloride Carbon Dioxide BUN 30 H Creatinine Glucose 133 H POC Glucose 120 H Magnesium Ferritin AST ALT Lactate Dehydrogenase Total Creatine Kinase C-Reactive Protein Total Protein Albumin TSH Free T4 Coronavirus (PCR) Crossmatch 05/06/21 05/06/21 05/07/21 14:14 15:40 04:34 WBC RBC 2.69 L Hgb 8.2 L Hct 24.7 L RDW 18.3 H Plt Count 80 L Lymph % (Auto) Lymph # (Auto) Seg Neutrophils % Seg Neuts % (Manual) Lymphocytes % (Manual) Lymphocytes # (Manual) PT APTT D-Dimer ABG pH ABG pO2 72.2 L ABG HCO3 28.0 H ABG O2 Saturation ABG Base Excess 3.6 H ABG Hemoglobin 5.6 L Oxyhemoglobin Sodium Potassium Chloride Carbon Dioxide BUN Creatinine Glucose POC Glucose Magnesium Ferritin AST ALT Lactate Dehydrogenase Total Creatine Kinase C-Reactive Protein 7.30 H Total Protein Albumin TSH Free T4 Coronavirus (PCR) Crossmatch 05/07/21 05/07/21 05/07/21 04:34 04:34 04:34 WBC RBC Hgb Hct RDW Plt Count Lymph % (Auto) Lymph # (Auto) Seg Neutrophils % Seg Neuts % (Manual) Lymphocytes % (Manual) Lymphocytes # (Manual) PT APTT D-Dimer 1661.00 H ABG pH ABG pO2 ABG HCO3 ABG O2 Saturation ABG Base Excess ABG Hemoglobin Oxyhemoglobin Sodium Potassium Chloride Carbon Dioxide BUN 25 H Creatinine Glucose POC Glucose Magnesium Ferritin 410.1 H AST ALT Lactate Dehydrogenase 184 H Total Creatine Kinase C-Reactive Protein 10.70 H Total Protein Albumin TSH Free T4 Coronavirus (PCR) Crossmatch 05/07/21 05/07/21 05/07/21 04:34 04:34 06:14 WBC RBC Hgb Hct RDW Plt Count Lymph % (Auto) Lymph # (Auto) Seg Neutrophils % Seg Neuts % (Manual) Lymphocytes % (Manual) Lymphocytes # (Manual) PT APTT D-Dimer ABG pH ABG pO2 ABG HCO3 ABG O2 Saturation ABG Base Excess ABG Hemoglobin Oxyhemoglobin Sodium Potassium Chloride Carbon Dioxide BUN Creatinine Glucose POC Glucose 134 H Magnesium Ferritin AST ALT Lactate Dehydrogenase Total Creatine Kinase C-Reactive Protein Total Protein Albumin TSH 9.910 H Free T4 0.61 L Coronavirus (PCR) Crossmatch 05/07/21 05/07/21 05/07/21 12:42 14:29 16:08 WBC RBC Hgb Hct RDW Plt Count Lymph % (Auto) Lymph # (Auto) Seg Neutrophils % Seg Neuts % (Manual) Lymphocytes % (Manual) Lymphocytes # (Manual) PT APTT D-Dimer ABG pH ABG pO2 ABG HCO3 27.6 H ABG O2 Saturation ABG Base Excess ABG Hemoglobin 8.8 L Oxyhemoglobin Sodium Potassium Chloride Carbon Dioxide BUN Creatinine Glucose POC Glucose 121 H Magnesium Ferritin AST ALT Lactate Dehydrogenase Total Creatine Kinase C-Reactive Protein Total Protein 8.6 H Albumin 3.0 L TSH Free T4 Coronavirus (PCR) Crossmatch 05/07/21 05/07/21 05/07/21 18:19 21:17 21:25 WBC RBC Hgb Hct RDW Plt Count Lymph % (Auto) Lymph # (Auto) Seg Neutrophils % Seg Neuts % (Manual) Lymphocytes % (Manual) Lymphocytes # (Manual) PT APTT D-Dimer ABG pH 7.311 L ABG pO2 95.5 H ABG HCO3 28.6 H ABG O2 Saturation ABG Base Excess ABG Hemoglobin 7.8 L Oxyhemoglobin Sodium Potassium Chloride Carbon Dioxide BUN Creatinine Glucose POC Glucose 149 H 143 H Magnesium Ferritin AST ALT Lactate Dehydrogenase Total Creatine Kinase C-Reactive Protein Total Protein Albumin TSH Free T4 Coronavirus (PCR) Crossmatch 05/08/21 05/08/21 05/08/21 06:33 07:29 09:20 WBC RBC Hgb Hct RDW Plt Count Lymph % (Auto) Lymph # (Auto) Seg Neutrophils % Seg Neuts % (Manual) Lymphocytes % (Manual) Lymphocytes # (Manual) PT APTT D-Dimer ABG pH 7.487 H ABG pO2 70.0 L ABG HCO3 29.3 H ABG O2 Saturation ABG Base Excess 5.5 H ABG Hemoglobin 7.6 L Oxyhemoglobin 94.3 L Sodium Potassium Chloride Carbon Dioxide BUN Creatinine Glucose POC Glucose 148 H 151 H Magnesium Ferritin AST ALT Lactate Dehydrogenase Total Creatine Kinase C-Reactive Protein Total Protein Albumin TSH Free T4 Coronavirus (PCR) Crossmatch 05/08/21 05/08/21 05/08/21 11:23 14:47 14:47 WBC RBC 2.57 L Hgb 7.7 L Hct 24.0 L RDW 17.9 H Plt Count 113 L Lymph % (Auto) Lymph # (Auto) Seg Neutrophils % Seg Neuts % (Manual) Lymphocytes % (Manual) Lymphocytes # (Manual) PT APTT D-Dimer ABG pH ABG pO2 ABG HCO3 ABG O2 Saturation ABG Base Excess ABG Hemoglobin Oxyhemoglobin Sodium 135 L Potassium Chloride Carbon Dioxide BUN 35 H Creatinine Glucose 145 H POC Glucose 124 H Magnesium Ferritin AST ALT Lactate Dehydrogenase Total Creatine Kinase C-Reactive Protein Total Protein Albumin TSH Free T4 Coronavirus (PCR) Crossmatch 05/08/21 05/08/21 05/09/21 17:08 23:23 05:37 WBC RBC Hgb Hct RDW Plt Count Lymph % (Auto) Lymph # (Auto) Seg Neutrophils % Seg Neuts % (Manual) Lymphocytes % (Manual) Lymphocytes # (Manual) PT APTT D-Dimer ABG pH ABG pO2 ABG HCO3 ABG O2 Saturation ABG Base Excess ABG Hemoglobin Oxyhemoglobin Sodium Potassium Chloride Carbon Dioxide BUN Creatinine Glucose POC Glucose 151 H 127 H 118 H Magnesium Ferritin AST ALT Lactate Dehydrogenase Total Creatine Kinase C-Reactive Protein Total Protein Albumin TSH Free T4 Coronavirus (PCR) Crossmatch 05/09/21 05/09/21 05/09/21 06:47 06:47 06:47 WBC RBC Hgb Hct RDW Plt Count Lymph % (Auto) Lymph # (Auto) Seg Neutrophils % Seg Neuts % (Manual) Lymphocytes % (Manual) Lymphocytes # (Manual) PT APTT D-Dimer 2342.13 H ABG pH ABG pO2 ABG HCO3 ABG O2 Saturation ABG Base Excess ABG Hemoglobin Oxyhemoglobin Sodium Potassium Chloride Carbon Dioxide BUN 44 H Creatinine 1.3 H Glucose 122 H POC Glucose Magnesium Ferritin 500.1 H AST ALT Lactate Dehydrogenase 212 H Total Creatine Kinase C-Reactive Protein 12.90 H Total Protein Albumin TSH Free T4 Coronavirus (PCR) Crossmatch 05/09/21 05/09/21 05/09/21 06:47 09:53 13:16 WBC RBC 2.39 L Hgb 7.3 L Hct 22.2 L RDW 17.7 H Plt Count 109 L Lymph % (Auto) Lymph # (Auto) Seg Neutrophils % Seg Neuts % (Manual) Lymphocytes % (Manual) Lymphocytes # (Manual) PT APTT D-Dimer ABG pH ABG pO2 ABG HCO3 ABG O2 Saturation ABG Base Excess ABG Hemoglobin Oxyhemoglobin Sodium Potassium Chloride Carbon Dioxide BUN Creatinine Glucose POC Glucose 132 H Magnesium Ferritin AST ALT Lactate Dehydrogenase Total Creatine Kinase C-Reactive Protein Total Protein 8.3 H Albumin 2.6 L TSH Free T4 Coronavirus (PCR) Crossmatch 05/09/21 05/09/21 05/09/21 14:17 15:20 16:57 WBC RBC Hgb Hct RDW Plt Count Lymph % (Auto) Lymph # (Auto) Seg Neutrophils % Seg Neuts % (Manual) Lymphocytes % (Manual) Lymphocytes # (Manual) PT APTT D-Dimer ABG pH 7.467 H ABG pO2 58.7 L ABG HCO3 31.5 H ABG O2 Saturation 99.3 H ABG Base Excess 7.2 H ABG Hemoglobin Oxyhemoglobin Sodium Potassium Chloride Carbon Dioxide BUN Creatinine Glucose POC Glucose 163 H 159 H Magnesium Ferritin AST ALT Lactate Dehydrogenase Total Creatine Kinase C-Reactive Protein Total Protein Albumin TSH Free T4 Coronavirus (PCR) Crossmatch 05/09/21 05/09/21 05/10/21 21:31 23:53 04:13 WBC RBC Hgb Hct RDW Plt Count Lymph % (Auto) Lymph # (Auto) Seg Neutrophils % Seg Neuts % (Manual) Lymphocytes % (Manual) Lymphocytes # (Manual) PT APTT D-Dimer ABG pH ABG pO2 ABG HCO3 ABG O2 Saturation ABG Base Excess ABG Hemoglobin Oxyhemoglobin Sodium Potassium Chloride Carbon Dioxide BUN Creatinine Glucose POC Glucose 136 H 138 H 110 H Magnesium Ferritin AST ALT Lactate Dehydrogenase Total Creatine Kinase C-Reactive Protein Total Protein Albumin TSH Free T4 Coronavirus (PCR) Crossmatch 05/10/21 05/10/21 05/10/21 04:51 04:51 08:10 WBC RBC 2.59 L Hgb 7.9 L Hct 24.0 L RDW 17.7 H Plt Count Lymph % (Auto) Lymph # (Auto) Seg Neutrophils % Seg Neuts % (Manual) Lymphocytes % (Manual) Lymphocytes # (Manual) PT APTT D-Dimer ABG pH ABG pO2 ABG HCO3 ABG O2 Saturation ABG Base Excess ABG Hemoglobin Oxyhemoglobin Sodium Potassium Chloride Carbon Dioxide BUN 47 H Creatinine Glucose 125 H POC Glucose 142 H Magnesium Ferritin AST ALT Lactate Dehydrogenase Total Creatine Kinase C-Reactive Protein Total Protein Albumin TSH Free T4 Coronavirus (PCR) Crossmatch 05/10/21 05/10/21 05/10/21 11:41 15:12 16:51 WBC RBC Hgb Hct RDW Plt Count Lymph % (Auto) Lymph # (Auto) Seg Neutrophils % Seg Neuts % (Manual) Lymphocytes % (Manual) Lymphocytes # (Manual) PT APTT D-Dimer ABG pH 7.464 H ABG pO2 77.1 L ABG HCO3 34.7 H ABG O2 Saturation ABG Base Excess 10.2 H ABG Hemoglobin 9.4 L Oxyhemoglobin Sodium Potassium Chloride Carbon Dioxide BUN Creatinine Glucose POC Glucose 163 H 147 H Magnesium Ferritin AST ALT Lactate Dehydrogenase Total Creatine Kinase C-Reactive Protein Total Protein Albumin TSH Free T4 Coronavirus (PCR) Crossmatch 05/10/21 05/11/21 05/11/21 22:22 04:43 04:43 WBC RBC 2.26 L Hgb 6.9 L Hct 21.0 L RDW 17.7 H Plt Count Lymph % (Auto) Lymph # (Auto) Seg Neutrophils % Seg Neuts % (Manual) Lymphocytes % (Manual) Lymphocytes # (Manual) PT APTT D-Dimer ABG pH ABG pO2 ABG HCO3 ABG O2 Saturation ABG Base Excess ABG Hemoglobin Oxyhemoglobin Sodium 132 L D Potassium 5.1 H Chloride 95.1 L Carbon Dioxide 31 H BUN 46 H Creatinine Glucose 135 H POC Glucose 133 H Magnesium 2.70 H Ferritin AST ALT Lactate Dehydrogenase Total Creatine Kinase C-Reactive Protein Total Protein Albumin TSH Free T4 Coronavirus (PCR) Crossmatch 05/11/21 05/11/21 05/11/21 05:22 07:47 12:29 WBC RBC Hgb Hct RDW Plt Count Lymph % (Auto) Lymph # (Auto) Seg Neutrophils % Seg Neuts % (Manual) Lymphocytes % (Manual) Lymphocytes # (Manual) PT APTT D-Dimer ABG pH ABG pO2 ABG HCO3 ABG O2 Saturation ABG Base Excess ABG Hemoglobin Oxyhemoglobin Sodium Potassium Chloride Carbon Dioxide BUN Creatinine Glucose POC Glucose 133 H 122 H 143 H Magnesium Ferritin AST ALT Lactate Dehydrogenase Total Creatine Kinase C-Reactive Protein Total Protein Albumin TSH Free T4 Coronavirus (PCR) Crossmatch 05/11/21 05/11/21 05/11/21 16:58 17:20 20:18 WBC RBC Hgb Hct RDW Plt Count Lymph % (Auto) Lymph # (Auto) Seg Neutrophils % Seg Neuts % (Manual) Lymphocytes % (Manual) Lymphocytes # (Manual) PT APTT D-Dimer ABG pH ABG pO2 345.1 H ABG HCO3 33.9 H ABG O2 Saturation 99.5 H ABG Base Excess 8.6 H ABG Hemoglobin 8.1 L Oxyhemoglobin Sodium Potassium Chloride Carbon Dioxide BUN Creatinine Glucose POC Glucose 161 H Magnesium Ferritin AST ALT Lactate Dehydrogenase Total Creatine Kinase C-Reactive Protein Total Protein Albumin TSH Free T4 Coronavirus (PCR) Crossmatch See Detail 05/11/21 05/12/21 05/12/21 21:27 07:20 07:20 WBC RBC 2.55 L Hgb 7.6 L Hct 23.0 L RDW 18.0 H Plt Count Lymph % (Auto) Lymph # (Auto) Seg Neutrophils % Seg Neuts % (Manual) Lymphocytes % (Manual) Lymphocytes # (Manual) PT APTT D-Dimer ABG pH ABG pO2 ABG HCO3 ABG O2 Saturation ABG Base Excess ABG Hemoglobin Oxyhemoglobin Sodium Potassium 5.1 H Chloride Carbon Dioxide 32 H BUN 51 H Creatinine 1.3 H Glucose POC Glucose 109 H Magnesium Ferritin AST ALT Lactate Dehydrogenase Total Creatine Kinase C-Reactive Protein Total Protein Albumin TSH Free T4 Coronavirus (PCR) Crossmatch 05/12/21 05/12/21 08:25 11:43 WBC RBC Hgb Hct RDW Plt Count Lymph % (Auto) Lymph # (Auto) Seg Neutrophils % Seg Neuts % (Manual) Lymphocytes % (Manual) Lymphocytes # (Manual) PT APTT D-Dimer ABG pH 7.502 H ABG pO2 223.9 H ABG HCO3 34.6 H ABG O2 Saturation 99.4 H ABG Base Excess 10.5 H ABG Hemoglobin 5.3 L Oxyhemoglobin Sodium Potassium Chloride Carbon Dioxide BUN Creatinine Glucose POC Glucose 107 H Magnesium Ferritin AST ALT Lactate Dehydrogenase Total Creatine Kinase C-Reactive Protein Total Protein Albumin TSH Free T4 Coronavirus (PCR) Crossmatch Chest x-ray: image reviewed (ETT riding low) Allied health notes reviewed: nursing
[2021-05-13] MEDS: hydrALAZINE 20 MG/1 ML INJ IV PRN ×3 (00:54→18:57)
[2021-05-13] MEDS: QUEtiapine 100 MG TAB PO SCH ×2 (01:02→09:01)
[2021-05-13] MEDS: INSULIN LISPRO 100 UNIT/ML SUB-Q SCH ×4 (01:03→18:28)
[2021-05-13] MEDS: fentaNYL DRIP Premix 2,000 MCG/100 ML BAG IV SCH ×2 (01:20→18:27)
[2021-05-13 06:25] LABS: Hematocrit 22.4 % (30.3-42.9); Hemoglobin 7.5 gm/dl (10.1-14.3); Mean Corpuscular HGB Conc 33 % (30-34); Mean Corpuscular Volume 91 fl (79-97); Platelet Count 238 K/mm3 (140-440); Red Blood Count 2.45 M/mm3 (3.65-5.03); Red Cell Distribution Width 17.6 % (13.2-15.2)
[2021-05-13 06:47] LABS: Calcium 8.9 mg/dL (8.4-10.2)
[2021-05-13] MEDS: hydrALAZINE 25 MG TAB PO SCH ×3 (08:19→22:18)
[2021-05-13] MEDS: QUEtiapine 25 MG TAB PO SCH ×2 (08:20→09:01)
[2021-05-13] MEDS: BUDESONIDE 0.5 MG/2 ML NEBU IH SCH ×4 (08:20→19:50)
[2021-05-13] MEDS: ACETYLCYSTEINE 20% 200 MG/1 ML *FOR INHALATION USE INHALATION SCH ×4 (08:20→14:04)
[2021-05-13] MEDS: IPRATROPIUM/ALBUTEROL SULFATE 3 ML AMPUL.NEB IH SCH ×5 (08:20→19:50)
[2021-05-13] MEDS: GLYCOPYRROLATE 1 MG TAB PO SCH ×3 (08:58→20:20)
[2021-05-13] MEDS: LEVOTHYROXINE 100 MCG INJ IV SCH (08:58)
[2021-05-13] MEDS: POLYETHYLENE GLYCOL 3350 17 GM POWDER PO SCH (09:01)
[2021-05-13] MEDS: DOCUSATE SODIUM 100 MG/10 ML ORAL LIQD PO SCH ×2 (09:01→22:18)
[2021-05-13] MEDS: FAMOTIDINE 10 MG TAB FEEDTUBE SCH ×2 (09:02→22:18)
[2021-05-13] MEDS: SENNOSIDES/DOCUSATE SODIUM 8.6/50 MG TAB FEEDTUBE SCH ×2 (10:04→22:18)
--- NOTE | 2021-05-13 10:55 | Progress Note ---
Assessment and Plan Symptomatic bradycardia with subsequent PEA arrest status post ROSC Acute hypoxic respiratory failure Cardiogenic shock Hypothyroidism Thrombocytopenia Acute metabolic encephalopathy Leukopenia Anemia Transaminitis Hypothermia Hyperkalemia - pull ETT 1-2 cm - tracheostomy consult placed + PEG - bronchoscopy held re: risk of airway compromise if ETT is pulled to evaluate vocal cords; will wait till after tracheostomy - continue care as below otherwise; - continue Robinul and Mucomyst for better secretion control - continue Seroquel - wean vasopressors for target MAP > 65 mmHg - continue Daily SAT and SBT assessment as tolerated - continue bronchodilators with pulmonary hygiene per RT - continue to wean supplemental oxygen for target O2 sat's > 90% acutely - VAP bundle addressed - continue lung protective strategies - continue bronchodilators with pulmonary hygiene per RT - wean per pulmonary driven protocols otherwise - sedation prn for target RASS 0 to -1 - AB's per ID recommendations - continue accuchecks with glycemic control per SSI (While critically ill target blood glucose of 140-180 mg/dL; avoid hypoglycemia) - avoid nephrotoxins, renally dose all medications - continue to avoid benzodiazepine's, reduce the possibility of delirium - prn analgesia per CPOT score - Maintenance of sleep-wake cycle, avoid delirium - continue enteral nutritional support at goal rate as tolerated - G.I. & VTE prophylaxis (VTE prophylaxis with SCDs; She has required supportive blood transfusions and has thrombocytopenia) - PT/OT/ROM exercises - mobility protocols for pressure ulcer prophylaxis - Monitor hemodynamics closely - continue other care per attending / other consultants - discharge planning ongoing concurrently COVID SPECIFIC INTERVENTIONS - Remdesivir as per ID/Pulmonary developed protocols - continue systemic steroids for severe COVID-19 infection empirically (Dexamethasone) - follow repeat COVID tests results - zinc and vitamin C supplementation - Monitor inflammatory markers per facility protocol - ferritin, Ddimer, CRP - therapeutic anticoagulation per system Protocol based on d-dimer and clinical considerations - Continue contact and airborne isolation .... Re-evaluate in am & prn CONDITION: CRITICAL PROGNOSIS: GUARDED CODE STATUS: FULL CODE The high probability of a clinically significant, sudden or life-threatening deterioration of the [respiratory, cardiovascular & neurologic] system(s) required my full and direct attention, intervention and personal management. The aggregate critical care time was [32] minutes without overlap. Time includes spent on; [x] Data Review and interpretation [x] Patient assessment and monitoring of vital signs [x] Documentation [x] Medication orders and management Subjective Date of service: 05/13/21 Principal diagnosis: Symptomatic bradycardia; AHRF; Cardiogenic shock; Throm bocytopenia; AMS Interval history: Patient is seen today for: Symptomatic bradycardia; Acute hypoxic respiratory failure; Cardiogenic shock; Hypothyroidism; Thrombocytopenia; AMS; Hyperkalemia Seen and examined at bedside; 24hour events reviewed; nursing and respiratory care staff consulted; no adverse overnight events reported to me; resting in bed; remains on MVS; no emesis or overt aspiration; afebrile Objective Vital Signs - 12hr 05/12/21 05/12/21 05/12/21 23:00 23:30 23:43 Temperature 98.6 F Pulse Rate 80 83 Pulse Rate [ From Monitor] Respiratory 13 21 Rate Blood Pressure 126/51 133/50 O2 Sat by Pulse 95 96 Oximetry 05/12/21 05/12/21 05/13/21 23:54 23:58 00:00 Temperature Pulse Rate 81 82 79 Pulse Rate [ 80 From Monitor] Respiratory 15 17 Rate Blood Pressure 138/52 138/52 138/52 O2 Sat by Pulse 96 97 96 Oximetry 05/13/21 05/13/21 05/13/21 00:30 00:54 01:00 Temperature Pulse Rate 77 79 78 Pulse Rate [ From Monitor] Respiratory 16 14 Rate Blood Pressure 120/65 130/64 130/64 O2 Sat by Pulse 95 94 Oximetry 05/13/21 05/13/21 05/13/21 01:30 02:00 02:30 Temperature Pulse Rate 77 81 99 H Pulse Rate [ From Monitor] Respiratory 11 L 12 19 Rate Blood Pressure 119/62 121/54 121/54 O2 Sat by Pulse 95 96 97 Oximetry 05/13/21 05/13/21 05/13/21 03:00 03:30 04:00 Temperature 99.4 F Pulse Rate 78 80 79 Pulse Rate [ 80 From Monitor] Respiratory 18 14 20 Rate Blood Pressure 161/65 142/58 119/92 O2 Sat by Pulse 95 96 97 Oximetry 05/13/21 05/13/21 05/13/21 04:30 05:00 05:30 Temperature Pulse Rate 75 85 76 Pulse Rate [ From Monitor] Respiratory 19 18 19 Rate Blood Pressure 154/51 152/53 119/92 O2 Sat by Pulse 95 95 93 Oximetry 05/13/21 05/13/21 05/13/21 06:00 06:30 07:00 Temperature Pulse Rate 85 82 82 Pulse Rate [ From Monitor] Respiratory 17 17 20 Rate Blood Pressure 143/57 154/58 156/66 O2 Sat by Pulse 92 94 92 Oximetry 05/13/21 05/13/21 05/13/21 07:30 08:00 08:31 Temperature 99.8 F H Pulse Rate 97 H 102 H 101 H Pulse Rate [ From Monitor] Respiratory 23 19 17 Rate Blood Pressure 157/56 157/66 155/74 O2 Sat by Pulse 90 84 92 Oximetry 05/13/21 05/13/21 09:00 09:14 Temperature Pulse Rate 104 H 110 H Pulse Rate [ From Monitor] Respiratory 20 Rate Blood Pressure 183/77 183/77 O2 Sat by Pulse 91 91 Oximetry Constitutional: no acute distress, other (elderly female with mildly increased respiratory effort at rest on MVS) Eyes: non-icteric ENT: oropharynx moist, other (ETT 24 cm HIMANSHU) Neck: supple, no lymphadenopathy, no JVD Effort: mildly labored Ascultation: Bilateral: diminished breath sounds, rales (bilateral) Percussion: Bilateral: not dull Cardiovascular: regular rate and rhythm, other (S1,S2) Gastrointestinal: normoactive bowel sounds, soft, non-distended, other (distended suprapubic area- possibly bladder) Integumentary: normal Extremities: no cyanosis, no edema, pulses normal, no ischemia or petechiae Neurologic: non-focal exam (grossly), pupils equal and round, unable to assess, other (sedated) Psychiatric: anxious, other (delirious) CBC and BMP: 05/14/21 05:15 05/14/21 05:15 ABG, PT/INR, D-dimer: ABG ABG pH 7.502 pH Units (7.350-7.450) H 05/12/21 08:25 ABG pCO2 45.2 mm Hg 05/12/21 08:25 ABG pO2 223.9 mm Hg (80.0-90.0) H 05/12/21 08:25 ABG O2 Saturation 99.4 % (95.0-99.0) H 05/12/21 08:25 PT/INR, D-dimer PT 15.1 Sec. (12.2-14.9) H 05/02/21 05:16 INR 1.07 (0.87-1.13) 05/02/21 05:16 D-Dimer 2342.13 ng/mlDDU (0-234) H 05/09/21 06:47 Abnormal lab findings: Abnormal Labs 05/02/21 05/02/21 05/02/21 05:16 05:16 05:16 WBC 2.9 L RBC 2.36 L Hgb 7.4 L Hct 22.2 L RDW 18.2 H Plt Count Lymph % (Auto) Lymph # (Auto) 0.5 L Seg Neutrophils % 76.5 H Seg Neuts % (Manual) Lymphocytes % (Manual) Lymphocytes # (Manual) PT 15.1 H APTT 41.7 H D-Dimer ABG pH ABG pO2 ABG HCO3 ABG O2 Saturation ABG Base Excess ABG Hemoglobin Oxyhemoglobin Sodium 129 L Potassium 6.2 H* Chloride 97.0 L Carbon Dioxide BUN Creatinine Glucose POC Glucose Magnesium Ferritin AST ALT Lactate Dehydrogenase Total Creatine Kinase C-Reactive Protein Total Protein Albumin TSH Free T4 Coronavirus (PCR) Crossmatch 05/02/21 05/02/21 05/02/21 05:17 05:53 06:41 WBC RBC Hgb Hct RDW Plt Count Lymph % (Auto) Lymph # (Auto) Seg Neutrophils % Seg Neuts % (Manual) Lymphocytes % (Manual) Lymphocytes # (Manual) PT APTT D-Dimer ABG pH ABG pO2 ABG HCO3 ABG O2 Saturation ABG Base Excess ABG Hemoglobin Oxyhemoglobin Sodium Potassium Chloride Carbon Dioxide BUN Creatinine Glucose POC Glucose Magnesium Ferritin AST 144 H ALT 115 H Lactate Dehydrogenase Total Creatine Kinase 189 H C-Reactive Protein Total Protein 9.6 H Albumin 2.9 L TSH 10.350 H Free T4 0.61 L Coronavirus (PCR) Crossmatch 05/02/21 05/02/21 05/03/21 11:50 15:56 04:52 WBC RBC 2.20 L Hgb 6.8 L Hct 20.6 L RDW 18.4 H Plt Count Lymph % (Auto) Lymph # (Auto) Seg Neutrophils % Seg Neuts % (Manual) 86.0 H Lymphocytes % (Manual) 3.0 L Lymphocytes # (Manual) 0.1 L PT APTT D-Dimer ABG pH ABG pO2 352.4 H ABG HCO3 ABG O2 Saturation 99.5 H ABG Base Excess ABG Hemoglobin 6.9 L Oxyhemoglobin Sodium Potassium 5.8 H Chloride Carbon Dioxide BUN Creatinine Glucose POC Glucose Magnesium Ferritin AST ALT Lactate Dehydrogenase Total Creatine Kinase C-Reactive Protein Total Protein Albumin TSH Free T4 Coronavirus (PCR) Crossmatch 05/03/21 05/03/21 05/03/21 04:52 10:10 10:23 WBC RBC Hgb Hct RDW Plt Count Lymph % (Auto) Lymph # (Auto) Seg Neutrophils % Seg Neuts % (Manual) Lymphocytes % (Manual) Lymphocytes # (Manual) PT APTT D-Dimer ABG pH ABG pO2 177.2 H ABG HCO3 ABG O2 Saturation 99.1 H ABG Base Excess ABG Hemoglobin 7.1 L Oxyhemoglobin Sodium 129 L Potassium 6.2 H* Chloride 97.0 L Carbon Dioxide BUN 25 H Creatinine Glucose POC Glucose 106 H Magnesium Ferritin AST 152 H ALT 127 H Lactate Dehydrogenase Total Creatine Kinase C-Reactive Protein Total Protein 8.6 H Albumin 2.6 L TSH Free T4 Coronavirus (PCR) Crossmatch 05/03/21 05/03/21 05/03/21 13:11 14:13 16:49 WBC RBC Hgb Hct RDW Plt Count Lymph % (Auto) Lymph # (Auto) Seg Neutrophils % Seg Neuts % (Manual) Lymphocytes % (Manual) Lymphocytes # (Manual) PT APTT D-Dimer ABG pH ABG pO2 ABG HCO3 ABG O2 Saturation ABG Base Excess ABG Hemoglobin Oxyhemoglobin Sodium Potassium Chloride Carbon Dioxide BUN Creatinine Glucose POC Glucose 116 H 58 L Magnesium Ferritin AST ALT Lactate Dehydrogenase Total Creatine Kinase C-Reactive Protein Total Protein Albumin TSH Free T4 Coronavirus (PCR) Crossmatch See Detail 05/03/21 05/03/21 05/03/21 17:34 19:58 20:07 WBC RBC Hgb Hct RDW Plt Count Lymph % (Auto) Lymph # (Auto) Seg Neutrophils % Seg Neuts % (Manual) Lymphocytes % (Manual) Lymphocytes # (Manual) PT APTT D-Dimer ABG pH ABG pO2 ABG HCO3 ABG O2 Saturation ABG Base Excess ABG Hemoglobin Oxyhemoglobin Sodium 131 L Potassium 5.7 H Chloride 97.7 L Carbon Dioxide 21 L BUN 28 H Creatinine 1.4 H Glucose 130 H POC Glucose 123 H 122 H Magnesium Ferritin AST ALT Lactate Dehydrogenase Total Creatine Kinase C-Reactive Protein Total Protein Albumin TSH Free T4 Coronavirus (PCR) Crossmatch 05/03/21 05/03/21 05/04/21 Unknown 23:59 02:59 WBC RBC Hgb Hct RDW Plt Count Lymph % (Auto) Lymph # (Auto) Seg Neutrophils % Seg Neuts % (Manual) Lymphocytes % (Manual) Lymphocytes # (Manual) PT APTT D-Dimer ABG pH ABG pO2 ABG HCO3 ABG O2 Saturation ABG Base Excess ABG Hemoglobin Oxyhemoglobin Sodium Potassium Chloride Carbon Dioxide BUN Creatinine Glucose POC Glucose 117 H 142 H Magnesium Ferritin AST ALT Lactate Dehydrogenase Total Creatine Kinase C-Reactive Protein Total Protein Albumin TSH Free T4 Coronavirus (PCR) Positive A Crossmatch 05/04/21 05/04/21 05/04/21 03:15 09:41 09:41 WBC RBC 2.28 L Hgb 7.1 L Hct 21.4 L RDW 18.5 H Plt Count 97 L Lymph % (Auto) 10.4 L Lymph # (Auto) 0.6 L Seg Neutrophils % 84.7 H Seg Neuts % (Manual) Lymphocytes % (Manual) Lymphocytes # (Manual) PT APTT D-Dimer ABG pH ABG pO2 ABG HCO3 ABG O2 Saturation ABG Base Excess ABG Hemoglobin 6.9 L Oxyhemoglobin 94.9 L Sodium 132 L Potassium Chloride Carbon Dioxide 21 L BUN 33 H Creatinine 1.4 H Glucose 143 H POC Glucose Magnesium Ferritin AST ALT Lactate Dehydrogenase Total Creatine Kinase C-Reactive Protein Total Protein Albumin TSH Free T4 Coronavirus (PCR) Crossmatch 05/04/21 05/04/21 05/04/21 11:43 16:48 21:31 WBC RBC Hgb Hct RDW Plt Count Lymph % (Auto) Lymph # (Auto) Seg Neutrophils % Seg Neuts % (Manual) Lymphocytes % (Manual) Lymphocytes # (Manual) PT APTT D-Dimer ABG pH ABG pO2 ABG HCO3 ABG O2 Saturation ABG Base Excess ABG Hemoglobin Oxyhemoglobin Sodium Potassium Chloride Carbon Dioxide BUN Creatinine Glucose POC Glucose 125 H 129 H 124 H Magnesium Ferritin AST ALT Lactate Dehydrogenase Total Creatine Kinase C-Reactive Protein Total Protein Albumin TSH Free T4 Coronavirus (PCR) Crossmatch 05/05/21 05/05/21 05/05/21 01:32 02:30 04:35 WBC RBC Hgb Hct RDW Plt Count Lymph % (Auto) Lymph # (Auto) Seg Neutrophils % Seg Neuts % (Manual) Lymphocytes % (Manual) Lymphocytes # (Manual) PT APTT D-Dimer ABG pH ABG pO2 123.1 H ABG HCO3 ABG O2 Saturation ABG Base Excess ABG Hemoglobin 5.9 L Oxyhemoglobin Sodium Potassium Chloride Carbon Dioxide BUN Creatinine Glucose POC Glucose 128 H Magnesium Ferritin AST 54 H ALT 70 H Lactate Dehydrogenase Total Creatine Kinase C-Reactive Protein Total Protein 8.4 H Albumin 2.5 L TSH Free T4 Coronavirus (PCR) Crossmatch 05/05/21 05/05/21 05/05/21 04:35 04:35 06:11 WBC 4.4 L RBC 2.04 L Hgb 6.3 L Hct 19.1 L* RDW 18.3 H Plt Count 77 L Lymph % (Auto) Lymph # (Auto) Seg Neutrophils % Seg Neuts % (Manual) Lymphocytes % (Manual) Lymphocytes # (Manual) PT APTT D-Dimer ABG pH ABG pO2 ABG HCO3 ABG O2 Saturation ABG Base Excess ABG Hemoglobin Oxyhemoglobin Sodium 131 L Potassium Chloride Carbon Dioxide 21 L BUN 31 H Creatinine Glucose 158 H POC Glucose 165 H Magnesium 2.40 H Ferritin AST ALT Lactate Dehydrogenase Total Creatine Kinase C-Reactive Protein Total Protein Albumin TSH Free T4 Coronavirus (PCR) Crossmatch 05/05/21 05/05/21 05/05/21 07:20 17:01 23:25 WBC RBC Hgb Hct RDW Plt Count Lymph % (Auto) Lymph # (Auto) Seg Neutrophils % Seg Neuts % (Manual) Lymphocytes % (Manual) Lymphocytes # (Manual) PT APTT D-Dimer ABG pH ABG pO2 ABG HCO3 ABG O2 Saturation ABG Base Excess ABG Hemoglobin Oxyhemoglobin Sodium Potassium Chloride Carbon Dioxide BUN Creatinine Glucose POC Glucose 152 H 114 H 148 H Magnesium Ferritin AST ALT Lactate Dehydrogenase Total Creatine Kinase C-Reactive Protein Total Protein Albumin TSH Free T4 Coronavirus (PCR) Crossmatch 05/06/21 05/06/21 05/06/21 04:56 04:56 05:37 WBC RBC 2.54 L Hgb 7.7 L Hct 23.2 L RDW 18.1 H Plt Count 73 L Lymph % (Auto) Lymph # (Auto) Seg Neutrophils % Seg Neuts % (Manual) Lymphocytes % (Manual) Lymphocytes # (Manual) PT APTT D-Dimer ABG pH ABG pO2 ABG HCO3 ABG O2 Saturation ABG Base Excess ABG Hemoglobin Oxyhemoglobin Sodium 134 L Potassium 5.1 H Chloride Carbon Dioxide BUN 30 H Creatinine Glucose 133 H POC Glucose 120 H Magnesium Ferritin AST ALT Lactate Dehydrogenase Total Creatine Kinase C-Reactive Protein Total Protein Albumin TSH Free T4 Coronavirus (PCR) Crossmatch 05/06/21 05/06/21 05/07/21 14:14 15:40 04:34 WBC RBC 2.69 L Hgb 8.2 L Hct 24.7 L RDW 18.3 H Plt Count 80 L Lymph % (Auto) Lymph # (Auto) Seg Neutrophils % Seg Neuts % (Manual) Lymphocytes % (Manual) Lymphocytes # (Manual) PT APTT D-Dimer ABG pH ABG pO2 72.2 L ABG HCO3 28.0 H ABG O2 Saturation ABG Base Excess 3.6 H ABG Hemoglobin 5.6 L Oxyhemoglobin Sodium Potassium Chloride Carbon Dioxide BUN Creatinine Glucose POC Glucose Magnesium Ferritin AST ALT Lactate Dehydrogenase Total Creatine Kinase C-Reactive Protein 7.30 H Total Protein Albumin TSH Free T4 Coronavirus (PCR) Crossmatch 05/07/21 05/07/21 05/07/21 04:34 04:34 04:34 WBC RBC Hgb Hct RDW Plt Count Lymph % (Auto) Lymph # (Auto) Seg Neutrophils % Seg Neuts % (Manual) Lymphocytes % (Manual) Lymphocytes # (Manual) PT APTT D-Dimer 1661.00 H ABG pH ABG pO2 ABG HCO3 ABG O2 Saturation ABG Base Excess ABG Hemoglobin Oxyhemoglobin Sodium Potassium Chloride Carbon Dioxide BUN 25 H Creatinine Glucose POC Glucose Magnesium Ferritin 410.1 H AST ALT Lactate Dehydrogenase 184 H Total Creatine Kinase C-Reactive Protein 10.70 H Total Protein Albumin TSH Free T4 Coronavirus (PCR) Crossmatch 05/07/21 05/07/21 05/07/21 04:34 04:34 06:14 WBC RBC Hgb Hct RDW Plt Count Lymph % (Auto) Lymph # (Auto) Seg Neutrophils % Seg Neuts % (Manual) Lymphocytes % (Manual) Lymphocytes # (Manual) PT APTT D-Dimer ABG pH ABG pO2 ABG HCO3 ABG O2 Saturation ABG Base Excess ABG Hemoglobin Oxyhemoglobin Sodium Potassium Chloride Carbon Dioxide BUN Creatinine Glucose POC Glucose 134 H Magnesium Ferritin AST ALT Lactate Dehydrogenase Total Creatine Kinase C-Reactive Protein Total Protein Albumin TSH 9.910 H Free T4 0.61 L Coronavirus (PCR) Crossmatch 05/07/21 05/07/21 05/07/21 12:42 14:29 16:08 WBC RBC Hgb Hct RDW Plt Count Lymph % (Auto) Lymph # (Auto) Seg Neutrophils % Seg Neuts % (Manual) Lymphocytes % (Manual) Lymphocytes # (Manual) PT APTT D-Dimer ABG pH ABG pO2 ABG HCO3 27.6 H ABG O2 Saturation ABG Base Excess ABG Hemoglobin 8.8 L Oxyhemoglobin Sodium Potassium Chloride Carbon Dioxide BUN Creatinine Glucose POC Glucose 121 H Magnesium Ferritin AST ALT Lactate Dehydrogenase Total Creatine Kinase C-Reactive Protein Total Protein 8.6 H Albumin 3.0 L TSH Free T4 Coronavirus (PCR) Crossmatch 05/07/21 05/07/21 05/07/21 18:19 21:17 21:25 WBC RBC Hgb Hct RDW Plt Count Lymph % (Auto) Lymph # (Auto) Seg Neutrophils % Seg Neuts % (Manual) Lymphocytes % (Manual) Lymphocytes # (Manual) PT APTT D-Dimer ABG pH 7.311 L ABG pO2 95.5 H ABG HCO3 28.6 H ABG O2 Saturation ABG Base Excess ABG Hemoglobin 7.8 L Oxyhemoglobin Sodium Potassium Chloride Carbon Dioxide BUN Creatinine Glucose POC Glucose 149 H 143 H Magnesium Ferritin AST ALT Lactate Dehydrogenase Total Creatine Kinase C-Reactive Protein Total Protein Albumin TSH Free T4 Coronavirus (PCR) Crossmatch 05/08/21 05/08/21 05/08/21 06:33 07:29 09:20 WBC RBC Hgb Hct RDW Plt Count Lymph % (Auto) Lymph # (Auto) Seg Neutrophils % Seg Neuts % (Manual) Lymphocytes % (Manual) Lymphocytes # (Manual) PT APTT D-Dimer ABG pH 7.487 H ABG pO2 70.0 L ABG HCO3 29.3 H ABG O2 Saturation ABG Base Excess 5.5 H ABG Hemoglobin 7.6 L Oxyhemoglobin 94.3 L Sodium Potassium Chloride Carbon Dioxide BUN Creatinine Glucose POC Glucose 148 H 151 H Magnesium Ferritin AST ALT Lactate Dehydrogenase Total Creatine Kinase C-Reactive Protein Total Protein Albumin TSH Free T4 Coronavirus (PCR) Crossmatch 05/08/21 05/08/21 05/08/21 11:23 14:47 14:47 WBC RBC 2.57 L Hgb 7.7 L Hct 24.0 L RDW 17.9 H Plt Count 113 L Lymph % (Auto) Lymph # (Auto) Seg Neutrophils % Seg Neuts % (Manual) Lymphocytes % (Manual) Lymphocytes # (Manual) PT APTT D-Dimer ABG pH ABG pO2 ABG HCO3 ABG O2 Saturation ABG Base Excess ABG Hemoglobin Oxyhemoglobin Sodium 135 L Potassium Chloride Carbon Dioxide BUN 35 H Creatinine Glucose 145 H POC Glucose 124 H Magnesium Ferritin AST ALT Lactate Dehydrogenase Total Creatine Kinase C-Reactive Protein Total Protein Albumin TSH Free T4 Coronavirus (PCR) Crossmatch 05/08/21 05/08/21 05/09/21 17:08 23:23 05:37 WBC RBC Hgb Hct RDW Plt Count Lymph % (Auto) Lymph # (Auto) Seg Neutrophils % Seg Neuts % (Manual) Lymphocytes % (Manual) Lymphocytes # (Manual) PT APTT D-Dimer ABG pH ABG pO2 ABG HCO3 ABG O2 Saturation ABG Base Excess ABG Hemoglobin Oxyhemoglobin Sodium Potassium Chloride Carbon Dioxide BUN Creatinine Glucose POC Glucose 151 H 127 H 118 H Magnesium Ferritin AST ALT Lactate Dehydrogenase Total Creatine Kinase C-Reactive Protein Total Protein Albumin TSH Free T4 Coronavirus (PCR) Crossmatch 05/09/21 05/09/21 05/09/21 06:47 06:47 06:47 WBC RBC Hgb Hct RDW Plt Count Lymph % (Auto) Lymph # (Auto) Seg Neutrophils % Seg Neuts % (Manual) Lymphocytes % (Manual) Lymphocytes # (Manual) PT APTT D-Dimer 2342.13 H ABG pH ABG pO2 ABG HCO3 ABG O2 Saturation ABG Base Excess ABG Hemoglobin Oxyhemoglobin Sodium Potassium Chloride Carbon Dioxide BUN 44 H Creatinine 1.3 H Glucose 122 H POC Glucose Magnesium Ferritin 500.1 H AST ALT Lactate Dehydrogenase 212 H Total Creatine Kinase C-Reactive Protein 12.90 H Total Protein Albumin TSH Free T4 Coronavirus (PCR) Crossmatch 05/09/21 05/09/21 05/09/21 06:47 09:53 13:16 WBC RBC 2.39 L Hgb 7.3 L Hct 22.2 L RDW 17.7 H Plt Count 109 L Lymph % (Auto) Lymph # (Auto) Seg Neutrophils % Seg Neuts % (Manual) Lymphocytes % (Manual) Lymphocytes # (Manual) PT APTT D-Dimer ABG pH ABG pO2 ABG HCO3 ABG O2 Saturation ABG Base Excess ABG Hemoglobin Oxyhemoglobin Sodium Potassium Chloride Carbon Dioxide BUN Creatinine Glucose POC Glucose 132 H Magnesium Ferritin AST ALT Lactate Dehydrogenase Total Creatine Kinase C-Reactive Protein Total Protein 8.3 H Albumin 2.6 L TSH Free T4 Coronavirus (PCR) Crossmatch 05/09/21 05/09/21 05/09/21 14:17 15:20 16:57 WBC RBC Hgb Hct RDW Plt Count Lymph % (Auto) Lymph # (Auto) Seg Neutrophils % Seg Neuts % (Manual) Lymphocytes % (Manual) Lymphocytes # (Manual) PT APTT D-Dimer ABG pH 7.467 H ABG pO2 58.7 L ABG HCO3 31.5 H ABG O2 Saturation 99.3 H ABG Base Excess 7.2 H ABG Hemoglobin Oxyhemoglobin Sodium Potassium Chloride Carbon Dioxide BUN Creatinine Glucose POC Glucose 163 H 159 H Magnesium Ferritin AST ALT Lactate Dehydrogenase Total Creatine Kinase C-Reactive Protein Total Protein Albumin TSH Free T4 Coronavirus (PCR) Crossmatch 05/09/21 05/09/21 05/10/21 21:31 23:53 04:13 WBC RBC Hgb Hct RDW Plt Count Lymph % (Auto) Lymph # (Auto) Seg Neutrophils % Seg Neuts % (Manual) Lymphocytes % (Manual) Lymphocytes # (Manual) PT APTT D-Dimer ABG pH ABG pO2 ABG HCO3 ABG O2 Saturation ABG Base Excess ABG Hemoglobin Oxyhemoglobin Sodium Potassium Chloride Carbon Dioxide BUN Creatinine Glucose POC Glucose 136 H 138 H 110 H Magnesium Ferritin AST ALT Lactate Dehydrogenase Total Creatine Kinase C-Reactive Protein Total Protein Albumin TSH Free T4 Coronavirus (PCR) Crossmatch 05/10/21 05/10/21 05/10/21 04:51 04:51 08:10 WBC RBC 2.59 L Hgb 7.9 L Hct 24.0 L RDW 17.7 H Plt Count Lymph % (Auto) Lymph # (Auto) Seg Neutrophils % Seg Neuts % (Manual) Lymphocytes % (Manual) Lymphocytes # (Manual) PT APTT D-Dimer ABG pH ABG pO2 ABG HCO3 ABG O2 Saturation ABG Base Excess ABG Hemoglobin Oxyhemoglobin Sodium Potassium Chloride Carbon Dioxide BUN 47 H Creatinine Glucose 125 H POC Glucose 142 H Magnesium Ferritin AST ALT Lactate Dehydrogenase Total Creatine Kinase C-Reactive Protein Total Protein Albumin TSH Free T4 Coronavirus (PCR) Crossmatch 05/10/21 05/10/21 05/10/21 11:41 15:12 16:51 WBC RBC Hgb Hct RDW Plt Count Lymph % (Auto) Lymph # (Auto) Seg Neutrophils % Seg Neuts % (Manual) Lymphocytes % (Manual) Lymphocytes # (Manual) PT APTT D-Dimer ABG pH 7.464 H ABG pO2 77.1 L ABG HCO3 34.7 H ABG O2 Saturation ABG Base Excess 10.2 H ABG Hemoglobin 9.4 L Oxyhemoglobin Sodium Potassium Chloride Carbon Dioxide BUN Creatinine Glucose POC Glucose 163 H 147 H Magnesium Ferritin AST ALT Lactate Dehydrogenase Total Creatine Kinase C-Reactive Protein Total Protein Albumin TSH Free T4 Coronavirus (PCR) Crossmatch 05/10/21 05/11/21 05/11/21 22:22 04:43 04:43 WBC RBC 2.26 L Hgb 6.9 L Hct 21.0 L RDW 17.7 H Plt Count Lymph % (Auto) Lymph # (Auto) Seg Neutrophils % Seg Neuts % (Manual) Lymphocytes % (Manual) Lymphocytes # (Manual) PT APTT D-Dimer ABG pH ABG pO2 ABG HCO3 ABG O2 Saturation ABG Base Excess ABG Hemoglobin Oxyhemoglobin Sodium 132 L D Potassium 5.1 H Chloride 95.1 L Carbon Dioxide 31 H BUN 46 H Creatinine Glucose 135 H POC Glucose 133 H Magnesium 2.70 H Ferritin AST ALT Lactate Dehydrogenase Total Creatine Kinase C-Reactive Protein Total Protein Albumin TSH Free T4 Coronavirus (PCR) Crossmatch 05/11/21 05/11/21 05/11/21 05:22 07:47 12:29 WBC RBC Hgb Hct RDW Plt Count Lymph % (Auto) Lymph # (Auto) Seg Neutrophils % Seg Neuts % (Manual) Lymphocytes % (Manual) Lymphocytes # (Manual) PT APTT D-Dimer ABG pH ABG pO2 ABG HCO3 ABG O2 Saturation ABG Base Excess ABG Hemoglobin Oxyhemoglobin Sodium Potassium Chloride Carbon Dioxide BUN Creatinine Glucose POC Glucose 133 H 122 H 143 H Magnesium Ferritin AST ALT Lactate Dehydrogenase Total Creatine Kinase C-Reactive Protein Total Protein Albumin TSH Free T4 Coronavirus (PCR) Crossmatch 05/11/21 05/11/21 05/11/21 16:58 17:20 20:18 WBC RBC Hgb Hct RDW Plt Count Lymph % (Auto) Lymph # (Auto) Seg Neutrophils % Seg Neuts % (Manual) Lymphocytes % (Manual) Lymphocytes # (Manual) PT APTT D-Dimer ABG pH ABG pO2 345.1 H ABG HCO3 33.9 H ABG O2 Saturation 99.5 H ABG Base Excess 8.6 H ABG Hemoglobin 8.1 L Oxyhemoglobin Sodium Potassium Chloride Carbon Dioxide BUN Creatinine Glucose POC Glucose 161 H Magnesium Ferritin AST ALT Lactate Dehydrogenase Total Creatine Kinase C-Reactive Protein Total Protein Albumin TSH Free T4 Coronavirus (PCR) Crossmatch See Detail 05/11/21 05/12/21 05/12/21 21:27 07:20 07:20 WBC RBC 2.55 L Hgb 7.6 L Hct 23.0 L RDW 18.0 H Plt Count Lymph % (Auto) Lymph # (Auto) Seg Neutrophils % Seg Neuts % (Manual) Lymphocytes % (Manual) Lymphocytes # (Manual) PT APTT D-Dimer ABG pH ABG pO2 ABG HCO3 ABG O2 Saturation ABG Base Excess ABG Hemoglobin Oxyhemoglobin Sodium Potassium 5.1 H Chloride Carbon Dioxide 32 H BUN 51 H Creatinine 1.3 H Glucose POC Glucose 109 H Magnesium Ferritin AST ALT Lactate Dehydrogenase Total Creatine Kinase C-Reactive Protein Total Protein Albumin TSH Free T4 Coronavirus (PCR) Crossmatch 05/12/21 05/12/21 05/12/21 08:25 11:43 17:26 WBC RBC Hgb Hct RDW Plt Count Lymph % (Auto) Lymph # (Auto) Seg Neutrophils % Seg Neuts % (Manual) Lymphocytes % (Manual) Lymphocytes # (Manual) PT APTT D-Dimer ABG pH 7.502 H ABG pO2 223.9 H ABG HCO3 34.6 H ABG O2 Saturation 99.4 H ABG Base Excess 10.5 H ABG Hemoglobin 5.3 L Oxyhemoglobin Sodium Potassium Chloride Carbon Dioxide BUN Creatinine Glucose POC Glucose 107 H 137 H Magnesium Ferritin AST ALT Lactate Dehydrogenase Total Creatine Kinase C-Reactive Protein Total Protein Albumin TSH Free T4 Coronavirus (PCR) Crossmatch 05/12/21 05/13/21 05/13/21 21:02 01:52 05:36 WBC RBC Hgb Hct RDW Plt Count Lymph % (Auto) Lymph # (Auto) Seg Neutrophils % Seg Neuts % (Manual) Lymphocytes % (Manual) Lymphocytes # (Manual) PT APTT D-Dimer ABG pH ABG pO2 ABG HCO3 ABG O2 Saturation ABG Base Excess ABG Hemoglobin Oxyhemoglobin Sodium Potassium Chloride Carbon Dioxide BUN Creatinine Glucose POC Glucose 120 H 136 H 122 H Magnesium Ferritin AST ALT Lactate Dehydrogenase Total Creatine Kinase C-Reactive Protein Total Protein Albumin TSH Free T4 Coronavirus (PCR) Crossmatch 05/13/21 05/13/21 06:02 06:02 WBC RBC 2.45 L Hgb 7.5 L Hct 22.4 L RDW 17.6 H Plt Count Lymph % (Auto) Lymph # (Auto) Seg Neutrophils % Seg Neuts % (Manual) Lymphocytes % (Manual) Lymphocytes # (Manual) PT APTT D-Dimer ABG pH ABG pO2 ABG HCO3 ABG O2 Saturation ABG Base Excess ABG Hemoglobin Oxyhemoglobin Sodium Potassium Chloride Carbon Dioxide BUN 59 H Creatinine 1.3 H Glucose 131 H POC Glucose Magnesium Ferritin AST ALT Lactate Dehydrogenase Total Creatine Kinase C-Reactive Protein Total Protein Albumin TSH Free T4 Coronavirus (PCR) Crossmatch Chest x-ray: other (none today) Allied health notes reviewed: nursing
--- NOTE | 2021-05-13 12:31 | Progress Note ---
Assessment and Plan 89-year-old female with a past medical history of hyper tension presenting to our facility with altered mental status, decreased responsiveness, bradycardia brought to the ED who 1 and then went to PEA arrest. ACLS protocol initiated with ROSC achieved. Patient taken to [facility] for temporary PPM Acute Encephalopathy Acute Respiratory Failure COVID-19 Infection Symptomatic Bradycardia (TVP removed) S/p PEA Arrest S/p Cardiogenic Shock Moderate MR MICHEAL (resolved) Hyponatremia Hyperkalemia (resolved) Anemia Thrombocytopenia Elevated LFTs HTN Euthyroid Sick Syndrome Echo 05/02/2021-EF 65 to 70%. Severe concentric LVH. Mild diastolic dysfunction is present impaired relaxation pattern. Moderate mitral regurgitation. Right ventricle is dilated. Right ventricular systolic function is normal device lead is present in right ventricle. Right atrium is dilated. No pericardial effusion Plan: Patient heart rate trending 90s Continue present management Agree with hydralazine for hypertension Patient seen in conjunction with Dr. Salazar who agrees with this plan of care - Patient Problems (1) Symptomatic bradycardia Current Visit: Yes Status: Acute Subjective Date of service: 05/13/21 Principal diagnosis: Symptomatic bradycardia; AHRF; Cardiogenic shock; Thrombocytopenia; AMS Interval history: Patient remains intubated and sedated Patient trending sinus 80-90s with PACs Objective Vital Signs Temp Pulse Pulse Pulse Resp Resp BP 05/13/21 11:30 106 H 26 H 176/68 05/13/21 11:00 91 H 21 190/79 05/13/21 10:30 105 H 22 187/68 05/13/21 10:00 102 H 21 188/78 05/13/21 09:30 100 H 18 185/81 05/13/21 09:14 110 H 183/77 05/13/21 09:00 104 H 20 183/77 05/13/21 08:31 101 H 17 155/74 05/13/21 08:00 99.8 F H 102 H 19 157/66 05/13/21 07:30 97 H 23 157/56 05/13/21 07:00 82 20 156/66 05/13/21 06:30 82 17 154/58 05/13/21 06:00 85 17 143/57 05/13/21 05:30 76 19 119/92 05/13/21 05:00 85 18 152/53 05/13/21 04:30 75 19 154/51 05/13/21 04:00 99.4 F 79 80 20 119/92 05/13/21 03:30 80 14 142/58 05/13/21 03:00 78 18 161/65 05/13/21 02:30 99 H 19 121/54 05/13/21 02:00 81 12 121/54 05/13/21 01:30 77 11 L 119/62 05/13/21 01:00 78 14 130/64 05/13/21 00:54 79 130/64 05/13/21 00:30 77 16 120/65 05/13/21 00:00 79 80 17 138/52 05/12/21 23:58 82 138/52 05/12/21 23:54 81 15 138/52 05/12/21 23:43 98.6 F 05/12/21 23:30 83 21 133/50 05/12/21 23:00 80 13 126/51 05/12/21 22:30 77 16 133/57 05/12/21 22:00 76 14 139/57 05/12/21 21:30 80 19 138/62 05/12/21 21:00 78 20 138/62 05/12/21 20:30 76 13 133/67 05/12/21 20:18 75 130/64 05/12/21 20:00 98.7 F 76 93 H 71 17 20 120/58 05/12/21 19:30 65 11 L 120/58 05/12/21 19:00 66 9 L 111/54 05/12/21 18:30 70 12 118/56 05/12/21 18:00 70 11 L 115/56 05/12/21 17:30 66 11 L 118/54 05/12/21 17:00 66 12 113/54 05/12/21 16:30 69 11 L 108/53 05/12/21 16:00 71 68 12 119/58 05/12/21 15:30 67 12 118/55 05/12/21 15:00 70 15 126/53 05/12/21 14:41 66 126/53 05/12/21 14:36 69 126/53 05/12/21 14:30 71 11 L 126/53 05/12/21 14:00 69 11 L 120/52 05/12/21 13:30 68 12 123/51 05/12/21 13:00 73 12 124/52 Pulse Ox 05/13/21 11:30 94 05/13/21 11:00 93 05/13/21 10:30 91 05/13/21 10:00 90 05/13/21 09:30 91 05/13/21 09:14 91 05/13/21 09:00 91 05/13/21 08:31 92 05/13/21 08:00 84 05/13/21 07:30 90 05/13/21 07:00 92 05/13/21 06:30 94 05/13/21 06:00 92 05/13/21 05:30 93 05/13/21 05:00 95 05/13/21 04:30 95 05/13/21 04:00 97 05/13/21 03:30 96 05/13/21 03:00 95 05/13/21 02:30 97 05/13/21 02:00 96 05/13/21 01:30 95 05/13/21 01:00 94 05/13/21 00:54 05/13/21 00:30 95 05/13/21 00:00 96 05/12/21 23:58 97 05/12/21 23:54 96 05/12/21 23:43 05/12/21 23:30 96 05/12/21 23:00 95 05/12/21 22:30 95 05/12/21 22:00 96 05/12/21 21:30 96 05/12/21 21:00 100 05/12/21 20:30 96 05/12/21 20:18 05/12/21 20:00 96 05/12/21 19:30 97 05/12/21 19:00 97 05/12/21 18:30 97 05/12/21 18:00 96 05/12/21 17:30 97 05/12/21 17:00 97 05/12/21 16:30 96 05/12/21 16:00 96 05/12/21 15:30 95 05/12/21 15:00 94 05/12/21 14:41 97 05/12/21 14:36 05/12/21 14:30 97 05/12/21 14:00 97 05/12/21 13:30 97 05/12/21 13:00 96 - Physical Examination General: Other (intubated and sedated) HEENT: Positive: Mucus Membranes Moist Neck: Positive: neck supple, trachea midline Cardiac: Positive: Reg Rate and Rhythm Lungs: Positive: Ventilated Respirations Neuro: Positive: Other (Pt intubated not following commands) Abdomen: Positive: Soft, Distended Skin: Negative: Rash Extremities: Present: Cool. Absent: edema - Labs and Meds CBC 05/13/21 Range/Units 06:02 WBC 6.2 (4.5-11.0) K/mm3 RBC 2.45 L (3.65-5.03) M/mm3 Hgb 7.5 L (10.1-14.3) gm/dl Hct 22.4 L (30.3-42.9) % Plt Count 238 (140-440) K/mm3 Comprehensive Metabolic Panel 05/13/21 Range/Units 06:02 Sodium 142 (137-145) mmol/L Potassium 4.6 (3.6-5.0) mmol/L Chloride 100.3 (98-107) mmol/L Carbon Dioxide 30 (22-30) mmol/L BUN 59 H (7-17) mg/dL Creatinine 1.3 H (0.6-1.2) mg/dL Glucose 131 H (65-100) mg/dL Calcium 8.9 (8.4-10.2) mg/dL - Imaging and Cardiology EKG: report reviewed, image reviewed Echo: report reviewed - Telemetry EKG Rhythm: Sinus Rhythm - EKG Sinus rhythms and dysrhythmias: sinus rhythm AV and intraventricular conduction: 1 AV block Repolarization changes or abnormalities: nonspecific abnormality, ST segment, and/or T wave - Allied health notes Allied health notes reviewed: nursing
--- NOTE | 2021-05-13 14:22 | Consultation ---
History of Present Illness Consult date: 05/13/21 - History of present illness History of present illness: 89 yo female s/p PEA & code. Also has covid pneumonia. Past History Past Medical History: hypertension, other (No previous records. No family at bedside) Social history: lives with family (Daughter and grandson), smoking (smoked for 40 years, now quit). denies: alcohol abuse Family history: no significant family history Medications and Allergies Allergies Allergy/AdvReac Type Severity Reaction Status Date / Time No Known Allergies Allergy Verified 05/02/21 06:02 Home Medications Medication Instructions Recorded Confirmed Last Taken Type amLODIPine 10 mg PO DAILY #30 tab 12/12/19 Unknown Rx Omeprazole 20 mg PO QDAY 05/05/21 05/05/21 Unknown History Active Meds: Active Medications Acetaminophen (Acetaminophen 325 Mg/10.15 Ml Oral Liqd Unit Dose) 650 mg FEEDTUBE Q6H PRN PRN Reason: Pain MILD(1-3)/Fever >100.5/[place] Albuterol/Ipratropium (Ipratropium/Albuterol Sulfate 3 Ml Ampul.Neb) 1 ampul IH TIDRT [facility] Last Admin: 05/13/21 14:04 Dose: Not Given Budesonide (Budesonide 0.5 Mg/2 Ml Nebu) 0.5 mg IH Q12HRT [facility] Last Admin: 05/13/21 09:13 Dose: Not Given Dextrose (Dextrose 10% *Hypoglycemia) 0 ml IV PRN PRN PRN Reason: Hypoglycemia Last Admin: 05/07/21 05:45 Dose: 50 ml Docusate Sodium (Docusate Sodium 100 Mg/10 Ml Oral Liqd) 100 mg PO BID [facility] Last Admin: 05/13/21 09:01 Dose: 100 mg Famotidine (Famotidine 10 Mg Tab) 10 mg FEEDTUBE BID [facility] Last Admin: 05/13/21 09:02 Dose: 10 mg Fentanyl (Fentanyl 100 Mcg/2 Ml Inj) 50 mcg IV Q10MIN PRN PRN Reason: ANALGES[place] Last Admin: 05/04/21 18:18 Dose: 50 mcg Glycopyrrolate (Glycopyrrolate 1 Mg Tab) 1 mg PO TID [facility] Last Admin: 05/13/21 13:57 Dose: 1 mg Hydralazine HCl (Hydralazine 25 Mg Tab) 25 mg PO Q8HR [facility] Last Admin: 05/13/21 13:57 Dose: 25 mg Hydralazine HCl (Hydralazine 20 Mg/1 Ml Inj) 10 mg IV Q4HR PRN PRN Reason: Hypertension Last Admin: 05/13/21 11:00 Dose: 10 mg Hydrophilic Ointment (Lip Therapy Vaseline) 1 applic TP Q2HR PRN PRN Reason: Dry Lips NORepinephrine/NS 8 MG-250 ML (Norepinephrine/Ns 8 Mg-250 Ml (Double Conc)) 8 mg in 250 mls @ 3.75 mls/hr IV TITRATE [facility]; Protocol Fentanyl Citrate (Fentanyl Drip Premix) 2,000 mcg in 100 mls @ 2.397 mls/hr IV TITR [facility]; Protocol Last Titration: 05/13/21 11:47 Dose: 2 mcg/kg/hr, 4.794 mls/hr Propofol (Diprivan 10 Mg/Ml) 1,000 mg in 100 mls @ 1.438 mls/hr IV TITR [facility]; Protocol Last Titration: 05/08/21 06:17 Dose: 0 mcg/kg/min, 0 mls/hr Insulin Human Lispro (Insulin Lispro 100 Unit/Ml) 0 unit SUB-Q Q6HR [facility]; Protocol Last Admin: 05/13/21 11:48 Dose: Not Given Levothyroxine Sodium (Levothyroxine 100 Mcg Inj) 25 mcg IV DAILY@0600 [facility] Last Admin: 05/13/21 08:58 Dose: 25 mcg Multi-Ingred Cream/Lotion/Oil/Oint (Mineral Oil/Petrolatum, White Ophth Oint 3.5 Gm) 1 applic OU Q4HR PRN PRN Reason: Dry Eye(s) Ondansetron HCl (Ondansetron 4 Mg/2 Ml Inj) 4 mg IV Q8H PRN PRN Reason: Nausea And Vomiting Polyethylene Glycol (Polyethylene Glycol 3350 17 Gm Powder) 17 gm PO QDAY [facility] Last Admin: 05/13/21 09:01 Dose: 17 gm Quetiapine Fumarate (Quetiapine 100 Mg Tab) 150 mg PO QAM [facility] Quetiapine Fumarate (Quetiapine 100 Mg Tab) 250 mg PO QHS [facility] Scopolamine (Scopolamine Transdermal Patch 72 Hr) 1 each TD Q3D [facility] Last Admin: 05/12/21 09:13 Dose: 1 each Senna/Docusate Sodium (Sennosides/Docusate Sodium 8.6/50 Mg Tab) 1 tab FEEDTUBE BID [facility] Last Admin: 05/13/21 10:04 Dose: 1 tab Sodium Chloride (Sodium Chloride 0.9% 10 Ml Flush Syringe) 10 ml IV BID [facility] Last Admin: 05/13/21 09:02 Dose: 10 ml Sodium Chloride (Sodium Chloride 0.9% 10 Ml Flush Syringe) 10 ml IV PRN PRN PRN Reason: LINE FLUSH Sodium Chloride (Sodium Chloride 0.9% 50 Ml Ivpb) 10 ml IV PRN PRN PRN Reason: FLUSH Last Admin: 05/08/21 21:30 Dose: 10 ml Review of Systems ROS unobtainable: due to endotracheal tube Exam Vital Signs Temp Pulse Resp BP Pulse Ox 88.9 F L 41 L 20 138/71 100 05/02/21 05:23 05/02/21 05:23 05/02/21 05:23 05/02/21 05:23 05/02/21 05:23 - General physical appearance Positive: well developed, well nourished, no distress - Eyes Positive: PERRL, normal occular movement - ENT Positive: normal pinna, normal nares, normal mucosa, no hearing loss, no congestion - Neck Positive: no masses, no bruits, trachea midline, no venous distension - Respiratory Positive: normal expansion, normal respiratory effort, clear to auscultation - Cardiovascular Rhythm: regular Heart Sounds: Present: S1 & S2. Absent: rub, click - Extremities Extremities: no ischemia, pulses symmetrical, No edema - Breasts Breasts: normal, no mass, no skin changes - Abdomen Abdomen: Present: soft, bowel sounds normal. Absent: tender, distended Hernia: none - Genitourinary Male Genitourinary: normal Female Genitourinary: normal - Integumentary no rash, no growths, no abnormal pigmentation Results - Labs 05/13/21 06:02 05/13/21 06:02 Abnormal lab results 05/12/21 05/12/21 05/13/21 Range/Units 17:26 21:02 01:52 RBC (3.65-5.03) M/mm3 Hgb (10.1-14.3) gm/dl Hct (30.3-42.9) % RDW (13.2-15.2) % BUN (7-17) mg/dL Creatinine (0.6-1.2) mg/dL Glucose (65-100) mg/dL POC Glucose 137 H 120 H 136 H (70-105) mg/dL 05/13/21 05/13/21 05/13/21 Range/Units 05:36 06:02 06:02 RBC 2.45 L (3.65-5.03) M/mm3 Hgb 7.5 L (10.1-14.3) gm/dl Hct 22.4 L (30.3-42.9) % RDW 17.6 H (13.2-15.2) % BUN 59 H (7-17) mg/dL Creatinine 1.3 H (0.6-1.2) mg/dL Glucose 131 H (65-100) mg/dL POC Glucose 122 H (70-105) mg/dL 05/13/21 Range/Units 11:47 RBC (3.65-5.03) M/mm3 Hgb (10.1-14.3) gm/dl Hct (30.3-42.9) % RDW (13.2-15.2) % BUN (7-17) mg/dL Creatinine (0.6-1.2) mg/dL Glucose (65-100) mg/dL POC Glucose 143 H (70-105) mg/dL Diabetes panel 05/13/21 Range/Units 06:02 Sodium 142 (137-145) mmol/L Potassium 4.6 (3.6-5.0) mmol/L Chloride 100.3 (98-107) mmol/L Carbon Dioxide 30 (22-30) mmol/L BUN 59 H (7-17) mg/dL Creatinine 1.3 H (0.6-1.2) mg/dL Glucose 131 H (65-100) mg/dL Calcium 8.9 (8.4-10.2) mg/dL Calcium panel 05/13/21 Range/Units 06:02 Calcium 8.9 (8.4-10.2) mg/dL Pituitary panel 05/13/21 Range/Units 06:02 Sodium 142 (137-145) mmol/L Potassium 4.6 (3.6-5.0) mmol/L Chloride 100.3 (98-107) mmol/L Carbon Dioxide 30 (22-30) mmol/L BUN 59 H (7-17) mg/dL Creatinine 1.3 H (0.6-1.2) mg/dL Glucose 131 H (65-100) mg/dL Calcium 8.9 (8.4-10.2) mg/dL Adrenal panel 05/13/21 Range/Units 06:02 Sodium 142 (137-145) mmol/L Potassium 4.6 (3.6-5.0) mmol/L Chloride 100.3 (98-107) mmol/L Carbon Dioxide 30 (22-30) mmol/L BUN 59 H (7-17) mg/dL Creatinine 1.3 H (0.6-1.2) mg/dL Glucose 131 H (65-100) mg/dL Calcium 8.9 (8.4-10.2) mg/dL Assessment and Plan - Patient Problems (1) Chronic respiratory failure with hypoxia Current Visit: Yes Status: Acute Plan to address problem: 1) Tracheostomy and PEG. Will see if the OR has an opening for tomorrow. 2) NPO after MN 3) Consent obtained from daughter, Hope Flood.
--- NOTE | 2021-05-13 15:39 | Progress Note ---
Assessment and Plan Cultures: Blood culture 05/02/2021 no growth Sputum culture 05/02/2021 no growth A/P: 89-year-old female past medical history hypertension now with: #Severe COVID-19 pneumonia: Patient presented with a week of symptoms, chest x- ray with diffuse bilateral infiltrates, admission O2 sats on room air. Inflammatory markers elevated #Acute hypoxemic respiratory failure: Likely secondary to COVID-19 infection. Currently on the vent #PEA arrest: ROSC achieved after 1 round of epi Recommendations: -Dexamethasone 6 mg IV/PO daily for 10 days -Obtain q48-72h inflammatory markers - ferritin, Ddimer, CRP, LDH -Anticoagulation per hospital protocol -Proning as able -Completed cefepime Thank you for the consult, we will continue to follow. Rhianna Gallagher MD [facility] O: [phone] F: [phone] Subjective Date of service: 05/13/21 Principal diagnosis: Symptomatic bradycardia; AHRF; Cardiogenic shock; Thrombocytopenia; AMS Interval history: Afebrile, normal white count. Remains on the vent. Imaging personally reviewed: Chest x-ray: No significant change ongoing prominent patchy bilateral inf iltrates. Objective - Exam Narrative Exam: Physical exam deferred to reduce risk of transmission of COVID-19. Please refer to primary team's note. - Constitutional Vitals: Vital Signs Temp Pulse Resp BP Pulse Ox 98.9 F 89 26 H 164/64 95 05/13/21 12:00 05/13/21 13:57 05/13/21 11:30 05/13/21 13:57 05/13/21 12:41 Temperature -Last 24 Hours Temperature 98.9 F Temperature 99.8 F Temperature 99.4 F Temperature 98.6 F Temperature 98.7 F - Labs CBC & Chem 7: 05/13/21 06:02 05/13/21 06:02 Labs: Abnormal lab results 05/12/21 05/12/21 05/13/21 Range/Units 17:26 21:02 01:52 RBC (3.65-5.03) M/mm3 Hgb (10.1-14.3) gm/dl Hct (30.3-42.9) % RDW (13.2-15.2) % BUN (7-17) mg/dL Creatinine (0.6-1.2) mg/dL Glucose (65-100) mg/dL POC Glucose 137 H 120 H 136 H (70-105) mg/dL 05/13/21 05/13/21 05/13/21 Range/Units 05:36 06:02 06:02 RBC 2.45 L (3.65-5.03) M/mm3 Hgb 7.5 L (10.1-14.3) gm/dl Hct 22.4 L (30.3-42.9) % RDW 17.6 H (13.2-15.2) % BUN 59 H (7-17) mg/dL Creatinine 1.3 H (0.6-1.2) mg/dL Glucose 131 H (65-100) mg/dL POC Glucose 122 H (70-105) mg/dL 05/13/21 Range/Units 11:47 RBC (3.65-5.03) M/mm3 Hgb (10.1-14.3) gm/dl Hct (30.3-42.9) % RDW (13.2-15.2) % BUN (7-17) mg/dL Creatinine (0.6-1.2) mg/dL Glucose (65-100) mg/dL POC Glucose 143 H (70-105) mg/dL
--- NOTE | 2021-05-13 17:06 | Progress Note ---
<DELANO DIAZ - Last Filed: 05/13/21 18:07> Assessment and Plan Assessment and plan: This is a 89-year-old female with known history of HTN, legally blind, and recent UTI initially admitted for bradycardia and AMS. Patient subsequently PEA arrested with ROSC in the ED was intubated and placed on ventilatory support. S/ p X2 failed extubation. Hospital Course to Date: 05/03: s/p cardiac arrest, remains unresponsive, not on any sedation. +gag/cough and corneal reflex, pending CT head/brain. Patient H&H also dropped this am, 1unit of PRBCs ordered. Hyperkalemia was treated per protoocl, repeat BMP at 1600. BR was initiated for severe constipation, TF was initiated. 05/04: Patient is awake this am, following simple commands. Off dopamine gtt and Transvenous pacer at a back rate of 60. COVID PCR +, patient is on IV Abx and IV steroids. Awaiting cardio recommendation, if no plan for PPM insertion, plan for PST for possible extubation. 05/05: On sedation this am due to increase agitation. Patient failed SAT this am. 1unit ordered for low H&H this am with worsening in thrombocytopenia, AC held and stool occult ordered. Transvenous pacer still present at a back up rate of 50, patient SR on the monitor this am, HR in the 60s. Plan for possible TVP removal tomorrow by Cardio. 05/06: Patient tried on PSV today, hydralazine p.o. for hypertension (initial DCCV but discontinued due to transvenous pacemaker in place), HIT panel ordered. 05/07: Transvenous catheter removed by cardiology, placed on SBT. Head still pending. Repeat thyroid studies show slight improvement. No acute events reported overnight. Home Norvasc changed to hydralazine today 05/08: Added Seroquel per [facility], systemic steroids started for laryngeal edema and patient started on IV Lasix for 3 days. Drop in H/H from 8.2/24.7-7.7/24 noted, will repeat CBC in the a.m. Thrombocytopenia has improved. Patient was extubated yesterday afternoon however she had to be reintubated late evening due to increased work of breathing. Given Dulcolax suppository today 05/09: Continue Seroquel, begin scopolamine for secretion control, CCM and vent changes and will continue Lasix for 1 more day. Given mag citrate 05/10: Patient on CPAP trial, started on Robinul and Mucomyst, CCM will continue Lasix for 2 more days and Seroquel increased to 25 mg due to agitation. 05/11: extubated today. ADALID overngiht 05/12: Patient was reintubated due to stridor and hypoxia, surgery consulted for trach/peg. Increase in Cr but she was on lasix for 2 doses which ended today per ccm. 05/13: Remains on the vent and on low dose sedation. S/p X2 failed extubation patient will need Trach and PEG. 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 Abdominal distention, no BM in 2 days will repeat mag CitrateX1. Assessment and Plan #Acute Metabolic Encephalopathy - ddx: delirium from acute illness vs underlying psych - per family 2 wk history of odd behavior, mumbling, paranoid behavior - Remains on sedation, still following simple commands - Titrate sedation for a RASS goal of 0 to -1 - Avoid benzodiazepine to reduce the possibility of delirium - PRN analgesia for CPOT greater than 3 - Maintenance of sleep-wake cycle #Symptomatic Bradycardia #PEA Arrest Status post ROSC #Cardiogenic Shock #H/o Hypertension - bradycardic [facility] 35bpm, given atropine x 1 with transient response - PEA arrested- CPR in ED s/p epi x 1, ROSC achieved - s/p transvenous pacemaker and Dopamine gtt - SR noted on the monitor, HR in the 60-90s - Cardiology on consult, appreciated recommendations - 05/02 ECHO- EF 65-70% - Continue blood pressure monitor per protocol - Continue Hydralazine for hypertension #Acute Hypoxic Respiratory Failure - S/p X2 failed extubation - Last intubation on 05/12 due to stridor and hypoxia - Vent Setting:PRVC-50%,6,12,400 - No ABG today - COVID PCR positive - CCM consulted, appreciate recommendations - VAP bundle addressed - Aspiration precaution HOB above 30 - Daily SBT and SAT trials as tolerated - Daily ABG and CXR - Continue SPO2 monitoring for SPO2 goal above 92% #GI: Severe Constipation #Transaminitis - Still with abdominal distention noted - KUB showed moderate to severe constipation - Last BM on 05/10 - X1 dose of mag citrate - Continue enteral nutrition - Continue PPI - Presented with elevated LFTs, unclear etiology - Will continue to trend LFTs #Anemia #Thrombocytopenia-improved - s/p 3units of PRBC - H&H stable - so s/s of any active bleeding - Plt improved, continue to hold AC for now - SCD to bilateral lower extremity while in bed - Trend CBC - Transfuse hemoglobin less than 7 #Hyponatremia-resolved #Hyperkalemia-resolved - Strict intake and output - Monitor and replace electrolytes as needed - Trend BMP #Euthyroid sick syndrome - The TFT pattern is not consistent with myxedema coma - levothyroxine 25 mcg IV - Recheck TFT's in 3-4 days #DVT prophylaxis - SCDs to bilateral lower extremities while in bed Family contact: Cheko Flood (grandson): [phone] - has requested you call him first. His Romanian is better and concerned mother might not catch everything. Hope Flood (daughter): [phone] The high probability of a clinically significant, sudden or life threatening deterioration of the [multi] system(s) required my full and direct attention, intervention and personal management. The aggregate critical care time was [60] minutes. This time is in addition to time spent performing reported procedures but includes the following: [x] Data Review and interpretation [x] Patient assessment and monitoring of vital signs [x] Documentation [x] Medication orders and management Disposition Plan: ICU Total Time Spent with Patient (Minutes): 60 History Interval history: Patient seen and examined at the bedside. Remains intubated and sedated. Per RN patient is still with intermittent agitation, fentanyl gtt increased Hospitalist Physical - Constitutional Vitals: Temp Pulse Resp BP Pulse Ox 98.5 F 89 15 177/80 97 05/13/21 16:00 05/13/21 17:00 05/13/21 17:00 05/13/21 17:00 05/13/21 17:00 General appearance: Present: no acute distress, other (Intubated and sedated) - EENT Eyes: Present: PERRL - Neck Neck: Present: normal ROM - Respiratory Respiratory effort: normal Respiratory: bilateral: rhonchi - Cardiovascular Rhythm: regular Heart Sounds: Present: S1 & S2 - Extremities Extremities: no ischemia, pulses intact, pulses symmetrical Peripheral Pulses: within normal limits - Abdominal General gastrointestinal: soft, non-distended, normal bowel sounds - Integumentary Integumentary: Present: warm, dry - Psychiatric Psychiatric: other (Intubated and sedated) - Neurologic Neurologic: moves all extremities, other (Intubated and sedated) - Allied Health Allied health notes reviewed: nursing HEART Score - HEART Score Troponin: Troponin T < 0.010 ng/mL (0.00-0.029) 05/02/21 05:16 Results - Labs CBC & Chem 7: 05/13/21 06:02 05/13/21 06:02 Labs: Laboratory Last Values WBC 6.2 K/mm3 (4.5-11.0) 05/13/21 06:02 RBC 2.45 M/mm3 (3.65-5.03) L 05/13/21 06:02 Hgb 7.5 gm/dl (10.1-14.3) L 05/13/21 06:02 Hct 22.4 % (30.3-42.9) L 05/13/21 06:02 MCV 91 fl (79-97) 05/13/21 06:02 MCH 31 pg (28-32) 05/13/21 06:02 MCHC 33 % (30-34) 05/13/21 06:02 RDW 17.6 % (13.2-15.2) H 05/13/21 06:02 Plt Count 238 K/mm3 (140-440) 05/13/21 06:02 Lymph % (Auto) 10.4 % (13.4-35.0) L 05/04/21 09:41 [place]dwell % (Auto) 4.9 % (0.0-7.3) 05/04/21 09:41 Eos % (Auto) 0.0 % (0.0-4.3) 05/04/21 09:41 Baso % (Auto) 0.0 % (0.0-1.8) 05/04/21 09:41 Lymph # (Auto) 0.6 K/mm3 (1.2-5.4) L 05/04/21 09:41 [place]dwell # (Auto) 0.3 K/mm3 (0.0-0.8) 05/04/21 09:41 Eos # (Auto) 0.0 K/mm3 (0.0-0.4) 05/04/21 09:41 Baso # (Auto) 0.0 K/mm3 (0.0-0.1) 05/04/21 09:41 Add Manual Diff Complete 05/03/21 04:52 Total Counted 100 05/03/21 04:52 Seg Neutrophils % 84.7 % (40.0-70.0) H 05/04/21 09:41 Seg Neuts % (Manual) 86.0 % (40.0-70.0) H 05/03/21 04:52 Band Neutrophils % 8.0 % 05/03/21 04:52 Lymphocytes % (Manual) 3.0 % (13.4-35.0) L 05/03/21 04:52 Reactive Lymphs % (Man) 0 % 05/03/21 04:52 Monocytes % (Manual) 2.0 % (0.0-7.3) 05/03/21 04:52 Eosinophils % (Manual) 1.0 % (0.0-4.3) 05/03/21 04:52 Basophils % (Manual) 0 % (0.0-1.8) 05/03/21 04:52 Metamyelocytes % 0 % 05/03/21 04:52 Myelocytes % 0 % 05/03/21 04:52 Promyelocytes % 0 % 05/03/21 04:52 Blast Cells % 0 % 05/03/21 04:52 Nucleated RBC % Not Reportable 05/03/21 04:52 Seg Neutrophils # 4.6 K/mm3 (1.8-7.7) 05/04/21 09:41 Seg Neutrophils # Man 3.9 K/mm3 (1.8-7.7) 05/03/21 04:52 Band Neutrophils # 0.4 K/mm3 05/03/21 04:52 Lymphocytes # (Manual) 0.1 K/mm3 (1.2-5.4) L 05/03/21 04:52 Abs React Lymphs (Man) 0.0 K/mm3 05/03/21 04:52 Monocytes # (Manual) 0.1 K/mm3 (0.0-0.8) 05/03/21 04:52 Eosinophils # (Manual) 0.0 K/mm3 (0.0-0.4) 05/03/21 04:52 Basophils # (Manual) 0.0 K/mm3 (0.0-0.1) 05/03/21 04:52 Metamyelocytes # 0.0 K/mm3 05/03/21 04:52 Myelocytes # 0.0 K/mm3 05/03/21 04:52 Promyelocytes # 0.0 K/mm3 05/03/21 04:52 Blast Cells # 0.0 K/mm3 05/03/21 04:52 WBC Morphology Not Reportable 05/03/21 04:52 Hypersegmented Neuts Not Reportable 05/03/21 04:52 Hyposegmented Neuts Not Reportable 05/03/21 04:52 Hypogranular Neuts Not Reportable 05/03/21 04:52 Smudge Cells Not Reportable 05/03/21 04:52 Toxic Granulation Not Reportable 05/03/21 04:52 Toxic Vacuolation Not Reportable 05/03/21 04:52 Dohle Bodies Not Reportable 05/03/21 04:52 Pelger-Huet Anomaly Not Reportable 05/03/21 04:52 Shanti Rods Not Reportable 05/03/21 04:52 Platelet Estimate Consistent w auto 05/03/21 04:52 Clumped Platelets Not Reportable 05/03/21 04:52 Plt Clumps, EDTA Not Reportable 05/03/21 04:52 Large Platelets Not Reportable 05/03/21 04:52 Giant Platelets Not Reportable 05/03/21 04:52 Platelet Satelliting Not Reportable 05/03/21 04:52 Plt Morphology Comment Not Reportable 05/03/21 04:52 RBC Morphology Not Reportable 05/03/21 04:52 Dimorphic RBCs Not Reportable 05/03/21 04:52 Polychromasia Not Reportable 05/03/21 04:52 Hypochromasia 2+ 05/03/21 04:52 Poikilocytosis Not Reportable 05/03/21 04:52 Anisocytosis 1+ 05/03/21 04:52 Microcytosis Not Reportable 05/03/21 04:52 Macrocytosis Few 05/03/21 04:52 Spherocytes Not Reportable 05/03/21 04:52 Pappenheimer Bodies Not Reportable 05/03/21 04:52 Sickle Cells Not Reportable 05/03/21 04:52 Target Cells Not Reportable 05/03/21 04:52 Tear Drop Cells Not Reportable 05/03/21 04:52 Ovalocytes Few 05/03/21 04:52 Helmet Cells Not Reportable 05/03/21 04:52 [place] Bodies Not Reportable 05/03/21 04:52 [place] Rings Not Reportable 05/03/21 04:52 [place] Cells Not Reportable 05/03/21 04:52 Bite Cells Not Reportable 05/03/21 04:52 Crenated Cell Not Reportable 05/03/21 04:52 Elliptocytes Not Reportable 05/03/21 04:52 Acanthocytes (Spur) Not Reportable 05/03/21 04:52 Rouleaux Not Reportable 05/03/21 04:52 Hemoglobin C Crystals Not Reportable 05/03/21 04:52 Schistocytes Not Reportable 05/03/21 04:52 Malaria parasites Not Reportable 05/03/21 04:52 Anatoly Bodies Not Reportable 05/03/21 04:52 Hem Pathologist Commnt No 05/03/21 04:52 PT 15.1 Sec. (12.2-14.9) H 05/02/21 05:16 INR 1.07 (0.87-1.13) 05/02/21 05:16 APTT 41.7 Sec. (24.2-36.6) H 05/02/21 05:16 D-Dimer 2342.13 ng/mlDDU (0-234) H 05/09/21 06:47 Heparin Anti-Xa, Unfract Negative (Negative) 05/06/21 14:14 ABG pH 7.502 pH Units (7.350-7.450) H 05/12/21 08:25 ABG pCO2 45.2 mm Hg 05/12/21 08:25 ABG pO2 223.9 mm Hg (80.0-90.0) H 05/12/21 08:25 ABG HCO3 34.6 mmol/L (20.0-26.0) H 05/12/21 08:25 ABG O2 Saturation 99.4 % (95.0-99.0) H 05/12/21 08:25 ABG O2 Content 7.9 (0.0-44) 05/12/21 08:25 ABG Base Excess 10.5 mmol/L (-2.0-3.0) H 05/12/21 08:25 ABG Hemoglobin 5.3 gm/dl (12.0-16.0) L 05/12/21 08:25 ABG Carboxyhemoglobin 1.8 % (0.0-5.0) 05/12/21 08:25 ABG Methemoglobin 0.5 % (0.0-1.5) 05/12/21 08:25 Oxyhemoglobin 97.1 % (95.0-99.0) 05/12/21 08:25 FiO2 40 % 05/12/21 08:25 Sodium 142 mmol/L (137-145) 05/13/21 06:02 Potassium 4.6 mmol/L (3.6-5.0) 05/13/21 06:02 Chloride 100.3 mmol/L (98-107) 05/13/21 06:02 Carbon Dioxide 30 mmol/L (22-30) 05/13/21 06:02 Anion Gap 16 mmol/L 05/13/21 06:02 BUN 59 mg/dL (7-17) H 05/13/21 06:02 Creatinine 1.3 mg/dL (0.6-1.2) H 05/13/21 06:02 Estimated GFR 47 ml/min 05/13/21 06:02 BUN/Creatinine Ratio 45 % 05/13/21 06:02 Glucose 131 mg/dL (65-100) H 05/13/21 06:02 POC Glucose 143 mg/dL (70-105) H 05/13/21 11:47 Lactic Acid 0.80 mmol/L (0.7-2.0) 05/02/21 05:53 Calcium 8.9 mg/dL (8.4-10.2) 05/13/21 06:02 Phosphorus 2.90 mg/dL (2.5-4.5) D 05/06/21 04:56 Magnesium 2.70 mg/dL (1.7-2.3) H 05/11/21 04:43 Ferritin 500.1 ng/mL (10.0-200.0) H 05/09/21 06:47 Total Bilirubin 0.20 mg/dL (0.1-1.2) 05/09/21 13:16 Direct Bilirubin < 0.2 mg/dL (0-0.2) 05/09/21 13:16 Indirect Bilirubin 0.0 mg/dL 05/09/21 13:16 AST 28 units/L (5-40) 05/09/21 13:16 ALT 37 units/L (7-56) 05/09/21 13:16 Alkaline Phosphatase 100 units/L (35-129) 05/09/21 13:16 Lactate Dehydrogenase 212 units/L (91-180) H 05/09/21 06:47 Total Creatine Kinase 189 units/L (30-135) H 05/02/21 05:53 Troponin T < 0.010 ng/mL (0.00-0.029) 05/02/21 05:16 C-Reactive Protein 12.90 mg/dL (0.00-1.30) H 05/09/21 06:47 NT-Pro-B Natriuret Pep 341.7 pg/mL (0-900) 05/02/21 05:17 Total Protein 8.3 g/dL (6.3-8.2) H 05/09/21 13:16 Albumin 2.6 g/dL (3.9-5) L 05/09/21 13:16 Albumin/Globulin Ratio 0.5 % 05/09/21 13:16 Triglycerides 62 mg/dL (2-149) 05/07/21 04:34 Procalcitonin 0.74 ng/mL (<0.15) 05/03/21 04:52 TSH 9.910 mlU/mL (0.270-4.200) H 05/07/21 04:34 Free T4 0.61 ng/dL (0.76-1.46) L 05/07/21 04:34 Heparin-induced Plt Ab Negative (Negative) 05/06/21 14:14 UF Heparin High Dose 0 % Release 05/06/21 14:14 ALEXEY UFH Low Dose 0.1 0 % Release 05/06/21 14:14 ALEXEY UFH Low Dose 0.5 0 % Release 05/06/21 14:14 Coronavirus (PCR) Positive (Negative) A 05/03/21 Unknown Blood Type O POSITIVE 05/11/21 17:20 Antibody Screen Negative 05/11/21 17:20 Crossmatch See Detail 05/11/21 17:20 Peoples/IV: Voiding Method Indwelling Catheter Active Medications - Current Medications Current Medications: Generic Name Dose Route Start Last Admin Trade Name Freq PRN Reason Stop Dose Admin Acetaminophen 650 mg 05/02/21 08:59 Acetaminophen 325 Mg/10.15 Ml Oral Liqd Unit Dose FEEDTUBE Q6H PRN Pain MILD(1-3)/Fever >100.5/[place] Albuterol/Ipratropium 1 ampul 05/04/21 08:00 05/13/21 14:04 Ipratropium/Albuterol Sulfate 3 Ml Ampul.Neb IH Not Given TIDRT [facility] Budesonide 0.5 mg 05/02/21 10:00 05/13/21 09:13 Budesonide 0.5 Mg/2 Ml Nebu IH Not Given Q12HRT [facility] Dextrose 0 ml 05/03/21 11:20 05/07/21 05:45 Dextrose 10% *Hypoglycemia IV 50 ml PRN PRN Administration Hypoglycemia Docusate Sodium 100 mg 05/03/21 12:00 05/13/21 09:01 Docusate Sodium 100 Mg/10 Ml Oral Liqd PO 100 mg BID JHON Administration Famotidine 10 mg 05/06/21 22:00 05/13/21 09:02 Famotidine 10 Mg Tab FEEDTUBE 10 mg BID JHON Administration Fentanyl 50 mcg 05/03/21 11:30 05/04/21 18:18 Fentanyl 100 Mcg/2 Ml Inj IV 50 mcg Q10MIN PRN Administration ANALGESIA Glycopyrrolate 1 mg 05/10/21 20:00 05/13/21 13:57 Glycopyrrolate 1 Mg Tab PO 1 mg TID JHON Administration Hydralazine HCl 25 mg 05/06/21 22:00 05/13/21 13:57 Hydralazine 25 Mg Tab PO 25 mg Q8HR JHON Administration Hydralazine HCl 10 mg 05/07/21 19:25 05/13/21 11:00 Hydralazine 20 Mg/1 Ml Inj IV 10 mg Q4HR PRN Administration Hypertension Hydrophilic Ointment 1 applic 05/07/21 20:35 Lip Therapy Vaseline TP Q2HR PRN Dry Lips NORepinephrine/NS 8 MG-250 ML 8 mg in 250 mls @ 3.75 mls/hr 05/02/21 10:00 Norepinephrine/Ns 8 Mg-250 Ml (Double Conc) IV TITRATE JHON Protocol 2 MCG/MIN Fentanyl Citrate 2,000 mcg in 100 mls @ 2.397 mls/hr 05/03/21 12:00 05/13/21 16:01 Fentanyl Drip Premix IV 4 mcg/kg/hr TITR JHON 9.588 mls/hr Titration Protocol 1 MCG/KG/HR Propofol 1,000 mg in 100 mls @ 1.438 mls/hr 05/04/21 22:00 05/08/21 06:17 Diprivan 10 Mg/Ml IV 0 mcg/kg/min TITR JHON 0 mls/hr Titration Protocol 5 MCG/KG/MIN Insulin Human Lispro 0 unit 05/09/21 00:00 05/13/21 11:48 Insulin Lispro 100 Unit/Ml SUB-Q Not Given Q6HR [facility] Protocol Levothyroxine Sodium 25 mcg 05/02/21 06:00 05/13/21 08:58 Levothyroxine 100 Mcg Inj IV 25 mcg DAILY@0600 [facility] Administration Multi-Ingred Cream/Lotion/Oil/Oint 1 applic 05/07/21 20:35 Mineral Oil/Petrolatum, White Ophth Oint 3.5 Gm OU Q4HR PRN Dry Eye(s) Ondansetron HCl 4 mg 05/02/21 08:59 Ondansetron 4 Mg/2 Ml Inj IV Q8H PRN Nausea And Vomiting Polyethylene Glycol 17 gm 05/03/21 12:00 05/13/21 09:01 Polyethylene Glycol 3350 17 Gm Powder PO 17 gm QDAY [facility] Administration Quetiapine Fumarate 150 mg 05/14/21 10:00 Quetiapine 100 Mg Tab PO QAM [facility] Quetiapine Fumarate 250 mg 05/13/21 22:00 Quetiapine 100 Mg Tab PO QHS [facility] Scopolamine 1 each 05/09/21 14:00 05/12/21 09:13 Scopolamine Transdermal Patch 72 Hr TD 1 each Q3D [facility] Administration Senna/Docusate Sodium 1 tab 05/07/21 22:00 05/13/21 10:04 Sennosides/Docusate Sodium 8.6/50 Mg Tab FEEDTUBE 1 tab BID JHON Administration Sodium Chloride 10 ml 05/02/21 10:00 05/13/21 09:02 Sodium Chloride 0.9% 10 Ml Flush Syringe IV 10 ml BID JHON Administration Sodium Chloride 10 ml 05/02/21 08:59 Sodium Chloride 0.9% 10 Ml Flush Syringe IV PRN PRN LINE FLUSH Sodium Chloride 10 ml 05/06/21 09:58 05/08/21 21:30 Sodium Chloride 0.9% 50 Ml Ivpb IV 10 ml PRN PRN Administration FLUSH Nutrition/Malnutrition Assess - Dietary Evaluation Nutrition/Malnutrition Findings: Nutrition Notes Start: 05/03/21 14:27 Freq: Status: Active Protocol: Document 05/13/21 15:28 MEKA (Rec: 05/13/21 15:35 [facility] [id number]) Nutrition Notes Initial or Follow up Reassessment Current Diagnosis Hypertension,Respiratory Failure Other Pertinent Diagnosis COVID-19, Pneumonia, Bradycardia/PEA arrest, Constipation, Transaminitis, M Current Diet TF - Osmolite 1.5 at 40ml/hr Labs/Tests BUN 59 Cr 1.3 Pertinent Medications Reviewed Height 5 ft 6 in Weight 47.94 kg [place]nard Body Weight (kg) 59.09 BMI 17.0 Weight Status Underweight Subjective/Other Information Pt remains on vent support. Pt scheduled for trach/PEG placement tomorrow. Per RN, pt tolerating TF; last BM was 05/10. Pt receives colace, senokot, and miralax daily. Percent of energy/protein needs met: 100% energy and pro Burn Absent Trauma Absent GI Symptoms Constipation #1 Nutrition Diagnosis Inadequate oral intake Diagnosis Progress(for reassessment Continues documentation) Is patient on ventilator? Yes Is Patient Ambulatory and/or Out of Bed No REE-([facility]-confined to bed) 1119.252 Kcal/Kg value to use for calculation 30 Approximate Energy Requirements Using 1438 kcal/Kg Calculation Used for Recommendations Kcal/kg Additional Notes Pro needs 1.2-2g/k-96g/ day Fluid needs 1ml/kcal Nutrition Intervention Nutrition Support: Continue Osmolite 1.5 at 40ml/ hr with scheduled water flushes. Kcal 1,440 Protein (gm) 60 Carbohydrates (gm) 195 Fat (gm) 47 Fluid (mL) 732 Fiber (gm) 0 Goal #1 TF tolerance Goal #2 TF to meet 100% energy and pro needs Goal #3 Wt maintenance and/or gain Follow-Up By: 05/17/21 Additional Comments F/U: Trach/PEG placement, BM, vent status <АННА GARCIA - Last Filed: 05/14/21 10:15> Assessment and Plan Assessment and plan: I saw and evaluated the patient. Discussed with the nurse practitioner and agree with their findings and plan as documented in this note. Hospitalist Physical - Constitutional Vitals: Temp Pulse Resp BP Pulse Ox 99 F 75 12 157/47 96 05/14/21 08:00 05/14/21 09:30 05/14/21 09:30 05/14/21 09:30 05/14/21 09:30 HEART Score - HEART Score Troponin: Troponin T < 0.010 ng/mL (0.00-0.029) 05/02/21 05:16 Results - Labs CBC & Chem 7: 05/14/21 05:15 05/14/21 05:15 Labs: Laboratory Last Values WBC 6.5 K/mm3 (4.5-11.0) 05/14/21 05:15 RBC 2.73 M/mm3 (3.65-5.03) L 05/14/21 05:15 Hgb 7.9 gm/dl (10.1-14.3) L 05/14/21 05:15 Hct 25.0 % (30.3-42.9) L 05/14/21 05:15 MCV 92 fl (79-97) 05/14/21 05:15 MCH 29 pg (28-32) 05/14/21 05:15 MCHC 32 % (30-34) 05/14/21 05:15 RDW 17.0 % (13.2-15.2) H 05/14/21 05:15 Plt Count 295 K/mm3 (140-440) 05/14/21 05:15 Lymph % (Auto) 10.4 % (13.4-35.0) L 05/04/21 09:41 [place] % (Auto) 4.9 % (0.0-7.3) 05/04/21 09:41 Eos % (Auto) 0.0 % (0.0-4.3) 05/04/21 09:41 Baso % (Auto) 0.0 % (0.0-1.8) 05/04/21 09:41 Lymph # (Auto) 0.6 K/mm3 (1.2-5.4) L 05/04/21 09:41 [place] # (Auto) 0.3 K/mm3 (0.0-0.8) 05/04/21 09:41 Eos # (Auto) 0.0 K/mm3 (0.0-0.4) 05/04/21 09:41 Baso # (Auto) 0.0 K/mm3 (0.0-0.1) 05/04/21 09:41 Add Manual Diff Complete 05/03/21 04:52 Total Counted 100 05/03/21 04:52 Seg Neutrophils % 84.7 % (40.0-70.0) H 05/04/21 09:41 Seg Neuts % (Manual) 86.0 % (40.0-70.0) H 05/03/21 04:52 Band Neutrophils % 8.0 % 05/03/21 04:52 Lymphocytes % (Manual) 3.0 % (13.4-35.0) L 05/03/21 04:52 Reactive Lymphs % (Man) 0 % 05/03/21 04:52 Monocytes % (Manual) 2.0 % (0.0-7.3) 05/03/21 04:52 Eosinophils % (Manual) 1.0 % (0.0-4.3) 05/03/21 04:52 Basophils % (Manual) 0 % (0.0-1.8) 05/03/21 04:52 Metamyelocytes % 0 % 05/03/21 04:52 Myelocytes % 0 % 05/03/21 04:52 Promyelocytes % 0 % 05/03/21 04:52 Blast Cells % 0 % 05/03/21 04:52 Nucleated RBC % Not Reportable 05/03/21 04:52 Seg Neutrophils # 4.6 K/mm3 (1.8-7.7) 05/04/21 09:41 Seg Neutrophils # Man 3.9 K/mm3 (1.8-7.7) 05/03/21 04:52 Band Neutrophils # 0.4 K/mm3 05/03/21 04:52 Lymphocytes # (Manual) 0.1 K/mm3 (1.2-5.4) L 05/03/21 04:52 Abs React Lymphs (Man) 0.0 K/mm3 05/03/21 04:52 Monocytes # (Manual) 0.1 K/mm3 (0.0-0.8) 05/03/21 04:52 Eosinophils # (Manual) 0.0 K/mm3 (0.0-0.4) 05/03/21 04:52 Basophils # (Manual) 0.0 K/mm3 (0.0-0.1) 05/03/21 04:52 Metamyelocytes # 0.0 K/mm3 05/03/21 04:52 Myelocytes # 0.0 K/mm3 05/03/21 04:52 Promyelocytes # 0.0 K/mm3 05/03/21 04:52 Blast Cells # 0.0 K/mm3 05/03/21 04:52 WBC Morphology Not Reportable 05/03/21 04:52 Hypersegmented Neuts Not Reportable 05/03/21 04:52 Hyposegmented Neuts Not Reportable 05/03/21 04:52 Hypogranular Neuts Not Reportable 05/03/21 04:52 Smudge Cells Not Reportable 05/03/21 04:52 Toxic Granulation Not Reportable 05/03/21 04:52 Toxic Vacuolation Not Reportable 05/03/21 04:52 Dohle Bodies Not Reportable 05/03/21 04:52 Pelger-Huet Anomaly Not Reportable 05/03/21 04:52 Shanti Rods Not Reportable 05/03/21 04:52 Platelet Estimate Consistent w auto 05/03/21 04:52 Clumped Platelets Not Reportable 05/03/21 04:52 Plt Clumps, EDTA Not Reportable 05/03/21 04:52 Large Platelets Not Reportable 05/03/21 04:52 Giant Platelets Not Reportable 05/03/21 04:52 Platelet Satelliting Not Reportable 05/03/21 04:52 Plt Morphology Comment Not Reportable 05/03/21 04:52 RBC Morphology Not Reportable 05/03/21 04:52 Dimorphic RBCs Not Reportable 05/03/21 04:52 Polychromasia Not Reportable 05/03/21 04:52 Hypochromasia 2+ 05/03/21 04:52 Poikilocytosis Not Reportable 05/03/21 04:52 Anisocytosis 1+ 05/03/21 04:52 Microcytosis Not Reportable 05/03/21 04:52 Macrocytosis Few 05/03/21 04:52 Spherocytes Not Reportable 05/03/21 04:52 Pappenheimer Bodies Not Reportable 05/03/21 04:52 Sickle Cells Not Reportable 05/03/21 04:52 Target Cells Not Reportable 05/03/21 04:52 Tear Drop Cells Not Reportable 05/03/21 04:52 Ovalocytes Few 05/03/21 04:52 Helmet Cells Not Reportable 05/03/21 04:52 [place] Bodies Not Reportable 05/03/21 04:52 [place] Rings Not Reportable 05/03/21 04:52 Jossue Cells Not Reportable 05/03/21 04:52 Bite Cells Not Reportable 05/03/21 04:52 Crenated Cell Not Reportable 05/03/21 04:52 Elliptocytes Not Reportable 05/03/21 04:52 Acanthocytes (Spur) Not Reportable 05/03/21 04:52 Rouleaux Not Reportable 05/03/21 04:52 Hemoglobin C Crystals Not Reportable 05/03/21 04:52 Schistocytes Not Reportable 05/03/21 04:52 Malaria parasites Not Reportable 05/03/21 04:52 Anatoly Bodies Not Reportable 05/03/21 04:52 Hem Pathologist Commnt No 05/03/21 04:52 PT 15.1 Sec. (12.2-14.9) H 05/02/21 05:16 INR 1.07 (0.87-1.13) 05/02/21 05:16 APTT 41.7 Sec. (24.2-36.6) H 05/02/21 05:16 D-Dimer 2342.13 ng/mlDDU (0-234) H 05/09/21 06:47 Heparin Anti-Xa, Unfract Negative (Negative) 05/06/21 14:14 ABG pH 7.502 pH Units (7.350-7.450) H 05/12/21 08:25 ABG pCO2 45.2 mm Hg 05/12/21 08:25 ABG pO2 223.9 mm Hg (80.0-90.0) H 05/12/21 08:25 ABG HCO3 34.6 mmol/L (20.0-26.0) H 05/12/21 08:25 ABG O2 Saturation 99.4 % (95.0-99.0) H 05/12/21 08:25 ABG O2 Content 7.9 (0.0-44) 05/12/21 08:25 ABG Base Excess 10.5 mmol/L (-2.0-3.0) H 05/12/21 08:25 ABG Hemoglobin 5.3 gm/dl (12.0-16.0) L 05/12/21 08:25 ABG Carboxyhemoglobin 1.8 % (0.0-5.0) 05/12/21 08:25 ABG Methemoglobin 0.5 % (0.0-1.5) 05/12/21 08:25 Oxyhemoglobin 97.1 % (95.0-99.0) 05/12/21 08:25 FiO2 40 % 05/12/21 08:25 Sodium 142 mmol/L (137-145) 05/14/21 05:15 Potassium 4.2 mmol/L (3.6-5.0) 05/14/21 05:15 Chloride 100.2 mmol/L (98-107) 05/14/21 05:15 Carbon Dioxide 31 mmol/L (22-30) H 05/14/21 05:15 Anion Gap 15 mmol/L 05/14/21 05:15 BUN 40 mg/dL (7-17) H 05/14/21 05:15 Creatinine 0.9 mg/dL (0.6-1.2) 05/14/21 05:15 Estimated GFR > 60 ml/min 05/14/21 05:15 BUN/Creatinine Ratio 44 % 05/14/21 05:15 Glucose 114 mg/dL (65-100) H 05/14/21 05:15 POC Glucose 113 mg/dL (70-105) H 05/14/21 05:26 Lactic Acid 0.80 mmol/L (0.7-2.0) 05/02/21 05:53 Calcium 9.4 mg/dL (8.4-10.2) 05/14/21 05:15 Phosphorus 2.90 mg/dL (2.5-4.5) D 05/06/21 04:56 Magnesium 2.70 mg/dL (1.7-2.3) H 05/11/21 04:43 Ferritin 500.1 ng/mL (10.0-200.0) H 05/09/21 06:47 Total Bilirubin 0.20 mg/dL (0.1-1.2) 05/09/21 13:16 Direct Bilirubin < 0.2 mg/dL (0-0.2) 05/09/21 13:16 Indirect Bilirubin 0.0 mg/dL 05/09/21 13:16 AST 28 units/L (5-40) 05/09/21 13:16 ALT 37 units/L (7-56) 05/09/21 13:16 Alkaline Phosphatase 100 units/L (35-129) 05/09/21 13:16 Lactate Dehydrogenase 212 units/L (91-180) H 05/09/21 06:47 Total Creatine Kinase 189 units/L (30-135) H 05/02/21 05:53 Troponin T < 0.010 ng/mL (0.00-0.029) 05/02/21 05:16 C-Reactive Protein 12.90 mg/dL (0.00-1.30) H 05/09/21 06:47 NT-Pro-B Natriuret Pep 341.7 pg/mL (0-900) 05/02/21 05:17 Total Protein 8.3 g/dL (6.3-8.2) H 05/09/21 13:16 Albumin 2.6 g/dL (3.9-5) L 05/09/21 13:16 Albumin/Globulin Ratio 0.5 % 05/09/21 13:16 Triglycerides 62 mg/dL (2-149) 05/07/21 04:34 Procalcitonin 0.74 ng/mL (<0.15) 05/03/21 04:52 TSH 9.910 mlU/mL (0.270-4.200) H 05/07/21 04:34 Free T4 0.61 ng/dL (0.76-1.46) L 05/07/21 04:34 Heparin-induced Plt Ab Negative (Negative) 05/06/21 14:14 UF Heparin High Dose 0 % Release 05/06/21 14:14 ALEXEY UFH Low Dose 0.1 0 % Release 05/06/21 14:14 ALEXEY UFH Low Dose 0.5 0 % Release 05/06/21 14:14 Coronavirus (PCR) Positive (Negative) A 05/03/21 Unknown Blood Type O POSITIVE 05/11/21 17:20 Antibody Screen Negative 05/11/21 17:20 Crossmatch See Detail 05/11/21 17:20 Peoples/IV: Voiding Method Incontinent Active Medications - Current Medications Current Medications: Generic Name Dose Route Start Last Admin Trade Name Freq PRN Reason Stop Dose Admin Acetaminophen 650 mg 05/02/21 08:59 Acetaminophen 325 Mg/10.15 Ml Oral Liqd Unit Dose FEEDTUBE Q6H PRN Pain MILD(1-3)/Fever >100.5/[place] Albuterol/Ipratropium 1 ampul 05/04/21 08:00 05/14/21 08:41 Ipratropium/Albuterol Sulfate 3 Ml Ampul.Neb IH Not Given TIDRT JHON Bisacodyl 10 mg 05/13/21 17:13 Bisacodyl 10 Mg Rect Supp IN QDAY PRN Constipation Budesonide 0.5 mg 05/02/21 10:00 05/14/21 08:41 Budesonide 0.5 Mg/2 Ml Nebu IH Not Given Q12HRT JHON Dextrose 0 ml 05/03/21 11:20 05/07/21 05:45 Dextrose 10% *Hypoglycemia IV 50 ml PRN PRN Administration Hypoglycemia Docusate Sodium 100 mg 05/03/21 12:00 05/14/21 09:36 Docusate Sodium 100 Mg/10 Ml Oral Liqd PO Not Given BID JHON Famotidine 10 mg 05/06/21 22:00 05/14/21 09:50 Famotidine 10 Mg Tab FEEDTUBE 10 mg BID JHON Administration Fentanyl 50 mcg 05/03/21 11:30 05/04/21 18:18 Fentanyl 100 Mcg/2 Ml Inj IV 50 mcg Q10MIN PRN Administration ANALGESIA Glycopyrrolate 1 mg 05/10/21 20:00 05/14/21 09:50 Glycopyrrolate 1 Mg Tab PO 1 mg TID JHON Administration Hydralazine HCl 25 mg 05/06/21 22:00 05/14/21 05:24 Hydralazine 25 Mg Tab PO 25 mg Q8HR JHON Administration Hydralazine HCl 10 mg 05/07/21 19:25 05/13/21 18:57 Hydralazine 20 Mg/1 Ml Inj IV 10 mg Q4HR PRN Administration Hypertension Hydrophilic Ointment 1 applic 05/07/21 20:35 Lip Therapy Vaseline TP Q2HR PRN Dry Lips NORepinephrine/NS 8 MG-250 ML 8 mg in 250 mls @ 3.75 mls/hr 05/02/21 10:00 Norepinephrine/Ns 8 Mg-250 Ml (Double Conc) IV TITRATE [facility] Protocol 2 MCG/MIN Fentanyl Citrate 2,000 mcg in 100 mls @ 2.397 mls/hr 05/03/21 12:00 05/14/21 09:52 Fentanyl Drip Premix IV Infused TITR JHON Titration Protocol 1 MCG/KG/HR Insulin Human Lispro 0 unit 05/09/21 00:00 05/14/21 06:12 Insulin Lispro 100 Unit/Ml SUB-Q Not Given Q6HR [facility] Protocol Levothyroxine Sodium 25 mcg 05/02/21 06:00 05/14/21 06:13 Levothyroxine 100 Mcg Inj IV 25 mcg DAILY@0600 [facility] Administration Multi-Ingred Cream/Lotion/Oil/Oint 1 applic 05/07/21 20:35 Mineral Oil/Petrolatum, White Ophth Oint 3.5 Gm OU Q4HR PRN Dry Eye(s) Ondansetron HCl 4 mg 05/02/21 08:59 Ondansetron 4 Mg/2 Ml Inj IV Q8H PRN Nausea And Vomiting Polyethylene Glycol 17 gm 05/03/21 12:00 05/14/21 09:36 Polyethylene Glycol 3350 17 Gm Powder PO Not Given QDAY [facility] Quetiapine Fumarate 150 mg 05/14/21 10:00 05/14/21 09:51 Quetiapine 100 Mg Tab PO 150 mg QAM [facility] Administration Quetiapine Fumarate 250 mg 05/13/21 22:00 05/13/21 23:10 Quetiapine 100 Mg Tab PO 250 mg QHS [facility] Administration Scopolamine 1 each 05/09/21 14:00 05/12/21 09:13 Scopolamine Transdermal Patch 72 Hr TD 1 each Q3D [facility] Administration Senna/Docusate Sodium 2 tab 05/13/21 22:00 05/13/21 22:18 Sennosides/Docusate Sodium 8.6/50 Mg Tab FEEDTUBE 2 tab BID JHON Administration Sodium Chloride 10 ml 05/02/21 10:00 05/13/21 22:10 Sodium Chloride 0.9% 10 Ml Flush Syringe IV 10 ml BID JHON Administration Sodium Chloride 10 ml 05/02/21 08:59 Sodium Chloride 0.9% 10 Ml Flush Syringe IV PRN PRN LINE FLUSH Sodium Chloride 10 ml 05/06/21 09:58 05/08/21 21:30 Sodium Chloride 0.9% 50 Ml Ivpb IV 10 ml PRN PRN Administration FLUSH Nutrition/Malnutrition Assess - Dietary Evaluation Nutrition/Malnutrition Findings: Nutrition Notes Start: 05/03/21 14:27 Freq: Status: Active Protocol: Document 05/13/21 15:28 [facility] (Rec: 05/13/21 15:35 [facility] [id number]) Nutrition Notes Initial or Follow up Reassessment Current Diagnosis Hypertension,Respiratory Failure Other Pertinent Diagnosis COVID-19, Pneumonia, Bradycardia/PEA arrest, Constipation, Transaminitis, M Current Diet TF - Osmolite 1.5 at 40ml/hr Labs/Tests BUN 59 Cr 1.3 Pertinent Medications Reviewed Height 5 ft 6 in Weight 47.94 kg [place] Body Weight (kg) 59.09 BMI 17.0 Weight Status Underweight Subjective/Other Information Pt remains on vent support. Pt scheduled for trach/PEG placement tomorrow. Per RN, pt tolerating TF; last BM was 05/10. Pt receives colace, senokot, and miralax daily. Percent of energy/protein needs met: 100% energy and pro Burn Absent Trauma Absent GI Symptoms Constipation #1 Nutrition Diagnosis Inadequate oral intake Diagnosis Progress(for reassessment Continues documentation) Is patient on ventilator? Yes Is Patient Ambulatory and/or Out of Bed No REE-([facility]-confined to bed) 1119.252 Kcal/Kg value to use for calculation 30 Approximate Energy Requirements Using 1438 kcal/Kg Calculation Used for Recommendations Kcal/kg Additional Notes Pro needs 1.2-2g/k-96g/ day Fluid needs 1ml/kcal Nutrition Intervention Nutrition Support: Continue Osmolite 1.5 at 40ml/ hr with scheduled water flushes. Kcal 1,440 Protein (gm) 60 Carbohydrates (gm) 195 Fat (gm) 47 Fluid (mL) 732 Fiber (gm) 0 Goal #1 TF tolerance Goal #2 TF to meet 100% energy and pro needs Goal #3 Wt maintenance and/or gain Follow-Up By: 05/17/21 Additional Comments F/U: Trach/PEG placement, BM, vent status
[2021-05-13] MEDS ORDERED: MAGNESIUM CITRATE 300 ML ORAL LIQD PO ONE (17:12)
[2021-05-13] MEDS ORDERED: QUEtiapine 100 MG TAB PO SCH (22:00)
[2021-05-14] MEDS: hydrALAZINE 25 MG TAB PO SCH (05:24)
[2021-05-14 05:57] LABS: Hemoglobin 7.9 gm/dl (10.1-14.3); Mean Corpuscular HGB Conc 32 % (30-34); Mean Corpuscular Volume 92 fl (79-97); Platelet Count 295 K/mm3 (140-440); Red Blood Count 2.73 M/mm3 (3.65-5.03)
[2021-05-14 06:07] LABS: BUN/Creatinine Ratio 44; Blood Urea Nitrogen 40 mg/dL (7-17); Calcium 9.4 mg/dL (8.4-10.2); Hemolysis Index 1
[2021-05-14] MEDS: INSULIN LISPRO 100 UNIT/ML SUB-Q SCH ×3 (06:12→12:59)
[2021-05-14] MEDS: LEVOTHYROXINE 100 MCG INJ IV SCH (06:13)
[2021-05-14] MEDS: IPRATROPIUM/ALBUTEROL SULFATE 3 ML AMPUL.NEB IH SCH ×2 (08:41→14:37)
[2021-05-14] MEDS: BUDESONIDE 0.5 MG/2 ML NEBU IH SCH (08:41)
[2021-05-14] MEDS: DOCUSATE SODIUM 100 MG/10 ML ORAL LIQD PO SCH (09:36)
[2021-05-14] MEDS: POLYETHYLENE GLYCOL 3350 17 GM POWDER PO SCH (09:36)
[2021-05-14] MEDS: FAMOTIDINE 10 MG TAB FEEDTUBE SCH (09:50)
[2021-05-14] MEDS: GLYCOPYRROLATE 1 MG TAB PO SCH (09:50)
[2021-05-14] MEDS ORDERED: QUEtiapine 100 MG TAB PO SCH (10:00)
[2021-05-14] MEDS: SENNOSIDES/DOCUSATE SODIUM 8.6/50 MG TAB FEEDTUBE SCH (10:49)
--- NOTE | 2021-05-14 12:16 | Progress Note ---
<DELANO DIAZ - Last Filed: 05/14/21 17:03> Assessment and Plan Assessment and plan: This is a 89-year-old female with known history of HTN, legally blind, and recent UTI initially admitted for bradycardia and AMS. Patient subsequently PEA arrested with ROSC in the ED was intubated and placed on ventilatory support. S/ p X2 failed extubation. Hospital Course to Date: 05/03: s/p cardiac arrest, remains unresponsive, not on any sedation. +gag/cough and corneal reflex, pending CT head/brain. Patient H&H also dropped this am, 1unit of PRBCs ordered. Hyperkalemia was treated per protoocl, repeat BMP at 1600. BR was initiated for severe constipation, TF was initiated. 05/04: Patient is awake this am, following simple commands. Off dopamine gtt and Transvenous pacer at a back rate of 60. COVID PCR +, patient is on IV Abx and IV steroids. Awaiting cardio recommendation, if no plan for PPM insertion, plan for PST for possible extubation. 05/05: On sedation this am due to increase agitation. Patient failed SAT this am. 1unit ordered for low H&H this am with worsening in thrombocytopenia, AC held and stool occult ordered. Transvenous pacer still present at a back up rate of 50, patient SR on the monitor this am, HR in the 60s. Plan for possible TVP removal tomorrow by Cardio. 05/06: Patient tried on PSV today, hydralazine p.o. for hypertension (initial DCCV but discontinued due to transvenous pacemaker in place), HIT panel ordered. 05/07: Transvenous catheter removed by cardiology, placed on SBT. Head still pending. Repeat thyroid studies show slight improvement. No acute events reported overnight. Home Norvasc changed to hydralazine today 05/08: Added Seroquel per [facility], systemic steroids started for laryngeal edema and patient started on IV Lasix for 3 days. Drop in H/H from 8.2/24.7-7.7/24 noted, will repeat CBC in the a.m. Thrombocytopenia has improved. Patient was extubated yesterday afternoon however she had to be reintubated late evening due to increased work of breathing. Given Dulcolax suppository today 05/09: Continue Seroquel, begin scopolamine for secretion control, CCM and vent changes and will continue Lasix for 1 more day. Given mag citrate 05/10: Patient on CPAP trial, started on Robinul and Mucomyst, CCM will continue Lasix for 2 more days and Seroquel increased to 25 mg due to agitation. 05/11: extubated today. ADALID overngiht 05/12: Patient was reintubated due to stridor and hypoxia, surgery consulted for trach/peg. Increase in Cr but she was on lasix for 2 doses which ended today per ccm. 05/13: Remains on the vent and on low dose sedation. S/p X2 failed extubation patient will need Trach and PEG. Possible conference call with mold operator and patien't family to discuss POC. Abdominal distention, no BM in 2 days will repeat mag CitrateX1. 05/14: ADALID overnight. Per case management, patient's family stated that they do not wish to proceed with Trach and PEG at this time and they are considering possible withdrawal of care. Patient's family is scheduled to come in at 1400 today to visit patient. Awaiting family finally decision. Trach and PEG on hold for now. 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, given atropine x 1 with transient response - PEA arrested- CPR in ED s/p epi x 1, ROSC achieved - s/p transvenous pacemaker and Dopamine gtt - SR noted on the monitor, HR in the 60-90s - Cardiology on consult, appreciated recommendations - 05/02 ECHO- EF 65-70% - Continue blood pressure monitor per protocol - Continue Hydralazine for hypertension #Acute Hypoxic Respiratory Failure - S/p X2 failed extubation - Last intubation on 05/12 due to stridor and hypoxia - Vent Setting:PRVC-45%,6,12,400 - No ABG today - COVID PCR positive - CCM consulted, appreciate recommendations - VAP bundle addressed - Aspiration precaution HOB above 30 - Daily SBT and SAT trials as tolerated - Daily ABG and CXR - Continue SPO2 monitoring for SPO2 goal above 92% #GI: Severe Constipation #Transaminitis - Still with abdominal distention noted - KUB showed moderate to severe constipation - Last BM on 05/10 - X1 dose of mag citrate - Continue enteral nutrition - Continue PPI - Presented with elevated LFTs, unclear etiology - Will continue to trend LFTs #Anemia #Thrombocytopenia-improved - s/p 3units of PRBC - H&H stable - so s/s of any active bleeding - Plt improved, continue to hold AC for now - SCD to bilateral lower extremity while in bed - Trend CBC - Transfuse hemoglobin less than 7 #Hyponatremia-resolved #Hyperkalemia-resolved - Strict intake and output - Monitor and replace electrolytes as needed - Trend BMP #Euthyroid sick syndrome - The TFT pattern is not consistent with myxedema coma - levothyroxine 25 mcg IV - Recheck TFT's in 3-4 days #DVT prophylaxis - SCDs to bilateral lower extremities while in bed Family contact: Cheko Aleena (grandson): [phone] - has requested you call him first. His Maori is better and concerned mother might not catch everything. Hope Flood (daughter): [phone] The high probability of a clinically significant, sudden or life threatening deterioration of the [multi] system(s) required my full and direct attention, intervention and personal management. The aggregate critical care time was [60] minutes. This time is in addition to time spent performing reported procedures but includes the following: [x] Data Review and interpretation [x] Patient assessment and monitoring of vital signs [x] Documentation [x] Medication orders and management Disposition Plan: ICU Total Time Spent with Patient (Minutes): 60 History Interval history: Patient seen and examined at the bedside. Remains intubated and sedated. Per RN patient with multiple loose stools overnight, this am BR were held. Abdomen is soft and round with hyperactive bowel sounds. ADALID overnight Hospitalist Physical - Constitutional Vitals: Temp Pulse Resp BP Pulse Ox 99 F 67 11 L 147/46 96 05/14/21 08:00 05/14/21 11:00 05/14/21 11:00 05/14/21 11:00 05/14/21 11:00 General appearance: Present: no acute distress, other (Intubated and sedated) - EENT Eyes: Present: PERRL - Respiratory Respiratory effort: normal Respiratory: bilateral: rhonchi - Cardiovascular Rhythm: regular Heart Sounds: Present: S1 & S2 - Extremities Extremities: no ischemia, pulses intact, pulses symmetrical Peripheral Pulses: within normal limits - Abdominal General gastrointestinal: soft, non-tender, normal bowel sounds - Integumentary Integumentary: Present: warm, dry - Psychiatric Psychiatric: other (Intubated and sedated) - Neurologic Neurologic: other (Intubated and sedated) - Allied Health Allied health notes reviewed: nursing, case management HEART Score - HEART Score Troponin: Troponin T < 0.010 ng/mL (0.00-0.029) 05/02/21 05:16 Results - Labs CBC & Chem 7: 05/14/21 05:15 05/14/21 05:15 Labs: Laboratory Last Values WBC 6.5 K/mm3 (4.5-11.0) 05/14/21 05:15 RBC 2.73 M/mm3 (3.65-5.03) L 05/14/21 05:15 Hgb 7.9 gm/dl (10.1-14.3) L 05/14/21 05:15 Hct 25.0 % (30.3-42.9) L 05/14/21 05:15 MCV 92 fl (79-97) 05/14/21 05:15 MCH 29 pg (28-32) 05/14/21 05:15 MCHC 32 % (30-34) 05/14/21 05:15 RDW 17.0 % (13.2-15.2) H 05/14/21 05:15 Plt Count 295 K/mm3 (140-440) 05/14/21 05:15 Lymph % (Auto) 10.4 % (13.4-35.0) L 05/04/21 09:41 Burnett % (Auto) 4.9 % (0.0-7.3) 05/04/21 09:41 Eos % (Auto) 0.0 % (0.0-4.3) 05/04/21 09:41 Baso % (Auto) 0.0 % (0.0-1.8) 05/04/21 09:41 Lymph # (Auto) 0.6 K/mm3 (1.2-5.4) L 05/04/21 09:41 Burnett # (Auto) 0.3 K/mm3 (0.0-0.8) 05/04/21 09:41 Eos # (Auto) 0.0 K/mm3 (0.0-0.4) 05/04/21 09:41 Baso # (Auto) 0.0 K/mm3 (0.0-0.1) 05/04/21 09:41 Add Manual Diff Complete 05/03/21 04:52 Total Counted 100 05/03/21 04:52 Seg Neutrophils % 84.7 % (40.0-70.0) H 05/04/21 09:41 Seg Neuts % (Manual) 86.0 % (40.0-70.0) H 05/03/21 04:52 Band Neutrophils % 8.0 % 05/03/21 04:52 Lymphocytes % (Manual) 3.0 % (13.4-35.0) L 05/03/21 04:52 Reactive Lymphs % (Man) 0 % 05/03/21 04:52 Monocytes % (Manual) 2.0 % (0.0-7.3) 05/03/21 04:52 Eosinophils % (Manual) 1.0 % (0.0-4.3) 05/03/21 04:52 Basophils % (Manual) 0 % (0.0-1.8) 05/03/21 04:52 Metamyelocytes % 0 % 05/03/21 04:52 Myelocytes % 0 % 05/03/21 04:52 Promyelocytes % 0 % 05/03/21 04:52 Blast Cells % 0 % 05/03/21 04:52 Nucleated RBC % Not Reportable 05/03/21 04:52 Seg Neutrophils # 4.6 K/mm3 (1.8-7.7) 05/04/21 09:41 Seg Neutrophils # Man 3.9 K/mm3 (1.8-7.7) 05/03/21 04:52 Band Neutrophils # 0.4 K/mm3 05/03/21 04:52 Lymphocytes # (Manual) 0.1 K/mm3 (1.2-5.4) L 05/03/21 04:52 Abs React Lymphs (Man) 0.0 K/mm3 05/03/21 04:52 Monocytes # (Manual) 0.1 K/mm3 (0.0-0.8) 05/03/21 04:52 Eosinophils # (Manual) 0.0 K/mm3 (0.0-0.4) 05/03/21 04:52 Basophils # (Manual) 0.0 K/mm3 (0.0-0.1) 05/03/21 04:52 Metamyelocytes # 0.0 K/mm3 05/03/21 04:52 Myelocytes # 0.0 K/mm3 05/03/21 04:52 Promyelocytes # 0.0 K/mm3 05/03/21 04:52 Blast Cells # 0.0 K/mm3 05/03/21 04:52 WBC Morphology Not Reportable 05/03/21 04:52 Hypersegmented Neuts Not Reportable 05/03/21 04:52 Hyposegmented Neuts Not Reportable 05/03/21 04:52 Hypogranular Neuts Not Reportable 05/03/21 04:52 Smudge Cells Not Reportable 05/03/21 04:52 Toxic Granulation Not Reportable 05/03/21 04:52 Toxic Vacuolation Not Reportable 05/03/21 04:52 Dohle Bodies Not Reportable 05/03/21 04:52 Pelger-Huet Anomaly Not Reportable 05/03/21 04:52 Shanti Rods Not Reportable 05/03/21 04:52 Platelet Estimate Consistent w auto 05/03/21 04:52 Clumped Platelets Not Reportable 05/03/21 04:52 Plt Clumps, EDTA Not Reportable 05/03/21 04:52 Large Platelets Not Reportable 05/03/21 04:52 Giant Platelets Not Reportable 05/03/21 04:52 Platelet Satelliting Not Reportable 05/03/21 04:52 Plt Morphology Comment Not Reportable 05/03/21 04:52 RBC Morphology Not Reportable 05/03/21 04:52 Dimorphic RBCs Not Reportable 05/03/21 04:52 Polychromasia Not Reportable 05/03/21 04:52 Hypochromasia 2+ 05/03/21 04:52 Poikilocytosis Not Reportable 05/03/21 04:52 Anisocytosis 1+ 05/03/21 04:52 Microcytosis Not Reportable 05/03/21 04:52 Macrocytosis Few 05/03/21 04:52 Spherocytes Not Reportable 05/03/21 04:52 Pappenheimer Bodies Not Reportable 05/03/21 04:52 Sickle Cells Not Reportable 05/03/21 04:52 Target Cells Not Reportable 05/03/21 04:52 Tear Drop Cells Not Reportable 05/03/21 04:52 Ovalocytes Few 05/03/21 04:52 Helmet Cells Not Reportable 05/03/21 04:52 Marcelino-Edmundson Bodies Not Reportable 05/03/21 04:52 [place] Rings Not Reportable 05/03/21 04:52 Jossue Cells Not Reportable 05/03/21 04:52 Bite Cells Not Reportable 05/03/21 04:52 Crenated Cell Not Reportable 05/03/21 04:52 Elliptocytes Not Reportable 05/03/21 04:52 Acanthocytes (Spur) Not Reportable 05/03/21 04:52 Rouleaux Not Reportable 05/03/21 04:52 Hemoglobin C Crystals Not Reportable 05/03/21 04:52 Schistocytes Not Reportable 05/03/21 04:52 Malaria parasites Not Reportable 05/03/21 04:52 Anatoly Bodies Not Reportable 05/03/21 04:52 Hem Pathologist Commnt No 05/03/21 04:52 PT 15.1 Sec. (12.2-14.9) H 05/02/21 05:16 INR 1.07 (0.87-1.13) 05/02/21 05:16 APTT 41.7 Sec. (24.2-36.6) H 05/02/21 05:16 D-Dimer 2342.13 ng/mlDDU (0-234) H 05/09/21 06:47 Heparin Anti-Xa, Unfract Negative (Negative) 05/06/21 14:14 ABG pH 7.502 pH Units (7.350-7.450) H 05/12/21 08:25 ABG pCO2 45.2 mm Hg 05/12/21 08:25 ABG pO2 223.9 mm Hg (80.0-90.0) H 05/12/21 08:25 ABG HCO3 34.6 mmol/L (20.0-26.0) H 05/12/21 08:25 ABG O2 Saturation 99.4 % (95.0-99.0) H 05/12/21 08:25 ABG O2 Content 7.9 (0.0-44) 05/12/21 08:25 ABG Base Excess 10.5 mmol/L (-2.0-3.0) H 05/12/21 08:25 ABG Hemoglobin 5.3 gm/dl (12.0-16.0) L 05/12/21 08:25 ABG Carboxyhemoglobin 1.8 % (0.0-5.0) 05/12/21 08:25 ABG Methemoglobin 0.5 % (0.0-1.5) 05/12/21 08:25 Oxyhemoglobin 97.1 % (95.0-99.0) 05/12/21 08:25 FiO2 40 % 05/12/21 08:25 Sodium 142 mmol/L (137-145) 05/14/21 05:15 Potassium 4.2 mmol/L (3.6-5.0) 05/14/21 05:15 Chloride 100.2 mmol/L (98-107) 05/14/21 05:15 Carbon Dioxide 31 mmol/L (22-30) H 05/14/21 05:15 Anion Gap 15 mmol/L 05/14/21 05:15 BUN 40 mg/dL (7-17) H 05/14/21 05:15 Creatinine 0.9 mg/dL (0.6-1.2) 05/14/21 05:15 Estimated GFR > 60 ml/min 05/14/21 05:15 BUN/Creatinine Ratio 44 % 05/14/21 05:15 Glucose 114 mg/dL (65-100) H 05/14/21 05:15 POC Glucose 113 mg/dL (70-105) H 05/14/21 11:48 Lactic Acid 0.80 mmol/L (0.7-2.0) 05/02/21 05:53 Calcium 9.4 mg/dL (8.4-10.2) 05/14/21 05:15 Phosphorus 2.90 mg/dL (2.5-4.5) D 05/06/21 04:56 Magnesium 2.70 mg/dL (1.7-2.3) H 05/11/21 04:43 Ferritin 500.1 ng/mL (10.0-200.0) H 05/09/21 06:47 Total Bilirubin 0.20 mg/dL (0.1-1.2) 05/09/21 13:16 Direct Bilirubin < 0.2 mg/dL (0-0.2) 05/09/21 13:16 Indirect Bilirubin 0.0 mg/dL 05/09/21 13:16 AST 28 units/L (5-40) 05/09/21 13:16 ALT 37 units/L (7-56) 05/09/21 13:16 Alkaline Phosphatase 100 units/L (35-129) 05/09/21 13:16 Lactate Dehydrogenase 212 units/L (91-180) H 05/09/21 06:47 Total Creatine Kinase 189 units/L (30-135) H 05/02/21 05:53 Troponin T < 0.010 ng/mL (0.00-0.029) 05/02/21 05:16 C-Reactive Protein 12.90 mg/dL (0.00-1.30) H 05/09/21 06:47 NT-Pro-B Natriuret Pep 341.7 pg/mL (0-900) 05/02/21 05:17 Total Protein 8.3 g/dL (6.3-8.2) H 05/09/21 13:16 Albumin 2.6 g/dL (3.9-5) L 05/09/21 13:16 Albumin/Globulin Ratio 0.5 % 05/09/21 13:16 Triglycerides 62 mg/dL (2-149) 05/07/21 04:34 Procalcitonin 0.74 ng/mL (<0.15) 05/03/21 04:52 TSH 9.910 mlU/mL (0.270-4.200) H 05/07/21 04:34 Free T4 0.61 ng/dL (0.76-1.46) L 05/07/21 04:34 Heparin-induced Plt Ab Negative (Negative) 05/06/21 14:14 UF Heparin High Dose 0 % Release 05/06/21 14:14 ALEXEY UFH Low Dose 0.1 0 % Release 05/06/21 14:14 ALEXEY UFH Low Dose 0.5 0 % Release 05/06/21 14:14 Coronavirus (PCR) Positive (Negative) A 05/03/21 Unknown Blood Type O POSITIVE 05/11/21 17:20 Antibody Screen Negative 05/11/21 17:20 Crossmatch See Detail 05/11/21 17:20 Peoples/IV: Voiding Method Incontinent Active Medications - Current Medications Current Medications: Generic Name Dose Route Start Last Admin Trade Name Freq PRN Reason Stop Dose Admin Acetaminophen 650 mg 05/02/21 08:59 Acetaminophen 325 Mg/10.15 Ml Oral Liqd Unit Dose FEEDTUBE Q6H PRN Pain MILD(1-3)/Fever >100.5/[place] Albuterol/Ipratropium 1 ampul 05/04/21 08:00 05/14/21 08:41 Ipratropium/Albuterol Sulfate 3 Ml Ampul.Neb IH Not Given TIDRT JHON Bisacodyl 10 mg 05/13/21 17:13 Bisacodyl 10 Mg Rect Supp [place] QDAY PRN Constipation Budesonide 0.5 mg 05/02/21 10:00 05/14/21 08:41 Budesonide 0.5 Mg/2 Ml Nebu IH Not Given Q12HRT JHON Dextrose 0 ml 05/03/21 11:20 05/07/21 05:45 Dextrose 10% *Hypoglycemia IV 50 ml PRN PRN Administration Hypoglycemia Docusate Sodium 100 mg 05/03/21 12:00 05/14/21 09:36 Docusate Sodium 100 Mg/10 Ml Oral Liqd PO Not Given BID JHON Famotidine 10 mg 05/06/21 22:00 05/14/21 09:50 Famotidine 10 Mg Tab FEEDTUBE 10 mg BID JHON Administration Fentanyl 50 mcg 05/03/21 11:30 05/04/21 18:18 Fentanyl 100 Mcg/2 Ml Inj IV 50 mcg Q10MIN PRN Administration ANALGESIA Glycopyrrolate 1 mg 05/10/21 20:00 05/14/21 09:50 Glycopyrrolate 1 Mg Tab PO 1 mg TID JHON Administration Hydralazine HCl 25 mg 05/06/21 22:00 05/14/21 05:24 Hydralazine 25 Mg Tab PO 25 mg Q8HR JHON Administration Hydralazine HCl 10 mg 05/07/21 19:25 05/13/21 18:57 Hydralazine 20 Mg/1 Ml Inj IV 10 mg Q4HR PRN Administration Hypertension Hydrophilic Ointment 1 applic 05/07/21 20:35 Lip Therapy Vaseline TP Q2HR PRN Dry Lips NORepinephrine/NS 8 MG-250 ML 8 mg in 250 mls @ 3.75 mls/hr 05/02/21 10:00 Norepinephrine/Ns 8 Mg-250 Ml (Double Conc) IV TITRATE [facility] Protocol 2 MCG/MIN Fentanyl Citrate 2,000 mcg in 100 mls @ 2.397 mls/hr 05/03/21 12:00 05/14/21 09:52 Fentanyl Drip Premix IV Infused TITR [facility] Titration Protocol 1 MCG/KG/HR Insulin Human Lispro 0 unit 05/09/21 00:00 05/14/21 06:12 Insulin Lispro 100 Unit/Ml SUB-Q Not Given Q6HR [facility] Protocol Levothyroxine Sodium 50 mcg 05/15/21 06:00 Levothyroxine 50 Mcg Tab FEEDTUBE DAILY@0600 [facility] Multi-Ingred Cream/Lotion/Oil/Oint 1 applic 05/07/21 20:35 Mineral Oil/Petrolatum, White Ophth Oint 3.5 Gm OU Q4HR PRN Dry Eye(s) Ondansetron HCl 4 mg 05/02/21 08:59 Ondansetron 4 Mg/2 Ml Inj IV Q8H PRN Nausea And Vomiting Polyethylene Glycol 17 gm 05/03/21 12:00 05/14/21 09:36 Polyethylene Glycol 3350 17 Gm Powder PO Not Given QDAY JHON Quetiapine Fumarate 150 mg 05/14/21 10:00 05/14/21 09:51 Quetiapine 100 Mg Tab PO 150 mg QAM JHON Administration Quetiapine Fumarate 250 mg 05/13/21 22:00 05/13/21 23:10 Quetiapine 100 Mg Tab PO 250 mg QHS [facility] Administration Scopolamine 1 each 05/09/21 14:00 05/12/21 09:13 Scopolamine Transdermal Patch 72 Hr TD 1 each Q3D JHON Administration Senna/Docusate Sodium 2 tab 05/13/21 22:00 05/14/21 10:49 Sennosides/Docusate Sodium 8.6/50 Mg Tab FEEDTUBE Not Given BID [facility] Sodium Chloride 10 ml 05/02/21 10:00 05/14/21 10:50 Sodium Chloride 0.9% 10 Ml Flush Syringe IV 10 ml BID JHON Administration Sodium Chloride 10 ml 05/02/21 08:59 Sodium Chloride 0.9% 10 Ml Flush Syringe IV PRN PRN LINE FLUSH Sodium Chloride 10 ml 05/06/21 09:58 05/08/21 21:30 Sodium Chloride 0.9% 50 Ml Ivpb IV 10 ml PRN PRN Administration FLUSH Nutrition/Malnutrition Assess - Dietary Evaluation Nutrition/Malnutrition Findings: Nutrition Notes Start: 05/03/21 14:27 Freq: Status: Active Protocol: Document 05/13/21 15:28 NHALL (Rec: 05/13/21 15:35 NHALL [id number]) Nutrition Notes Initial or Follow up Reassessment Current Diagnosis Hypertension,Respiratory Failure Other Pertinent Diagnosis COVID-19, Pneumonia, Bradycardia/PEA arrest, Constipation, Transaminitis, M Current Diet TF - Osmolite 1.5 at 40ml/hr Labs/Tests BUN 59 Cr 1.3 Pertinent Medications Reviewed Height 5 ft 6 in Weight 47.94 kg [place] Body Weight (kg) 59.09 BMI 17.0 Weight Status Underweight Subjective/Other Information Pt remains on vent support. Pt scheduled for trach/PEG placement tomorrow. Per RN, pt tolerating TF; last BM was 05/10. Pt receives colace, senokot, and miralax daily. Percent of energy/protein needs met: 100% energy and pro Burn Absent Trauma Absent GI Symptoms Constipation #1 Nutrition Diagnosis Inadequate oral intake Diagnosis Progress(for reassessment Continues documentation) Is patient on ventilator? Yes Is Patient Ambulatory and/or Out of Bed No REE-([facility]-confined to bed) 1119.252 Kcal/Kg value to use for calculation 30 Approximate Energy Requirements Using 1438 kcal/Kg Calculation Used for Recommendations Kcal/kg Additional Notes Pro needs 1.2-2g/k-96g/ day Fluid needs 1ml/kcal Nutrition Intervention Nutrition Support: Continue Osmolite 1.5 at 40ml/ hr with scheduled water flushes. Kcal 1,440 Protein (gm) 60 Carbohydrates (gm) 195 Fat (gm) 47 Fluid (mL) 732 Fiber (gm) 0 Goal #1 TF tolerance Goal #2 TF to meet 100% energy and pro needs Goal #3 Wt maintenance and/or gain Follow-Up By: 05/17/21 Additional Comments F/U: Trach/PEG placement, BM, vent status <SHERYL WHITEHEAD - Last Filed: 05/14/21 18:26> Assessment and Plan Assessment and plan: I saw and evaluated the patient. I agree with the findings and the plan of care as documented in the Nurse Practitioner's~note, with the following corrections and additions. Hospitalist Physical - Constitutional Vitals: Temp Pulse Resp BP Pulse Ox 97.9 F 66 12 157/71 70 L 05/14/21 12:00 05/14/21 14:00 05/14/21 14:00 05/14/21 14:00 05/14/21 14:38 HEART Score - HEART Score Troponin: Troponin T < 0.010 ng/mL (0.00-0.029) 05/02/21 05:16 Results - Labs CBC & Chem 7: 05/14/21 05:15 05/14/21 05:15 Labs: Laboratory Last Values WBC 6.5 K/mm3 (4.5-11.0) 05/14/21 05:15 RBC 2.73 M/mm3 (3.65-5.03) L 05/14/21 05:15 Hgb 7.9 gm/dl (10.1-14.3) L 05/14/21 05:15 Hct 25.0 % (30.3-42.9) L 05/14/21 05:15 MCV 92 fl (79-97) 05/14/21 05:15 MCH 29 pg (28-32) 05/14/21 05:15 MCHC 32 % (30-34) 05/14/21 05:15 RDW 17.0 % (13.2-15.2) H 05/14/21 05:15 Plt Count 295 K/mm3 (140-440) 05/14/21 05:15 Lymph % (Auto) 10.4 % (13.4-35.0) L 05/04/21 09:41 Burnett % (Auto) 4.9 % (0.0-7.3) 05/04/21 09:41 Eos % (Auto) 0.0 % (0.0-4.3) 05/04/21 09:41 Baso % (Auto) 0.0 % (0.0-1.8) 05/04/21 09:41 Lymph # (Auto) 0.6 K/mm3 (1.2-5.4) L 05/04/21 09:41 Burnett # (Auto) 0.3 K/mm3 (0.0-0.8) 05/04/21 09:41 Eos # (Auto) 0.0 K/mm3 (0.0-0.4) 05/04/21 09:41 Baso # (Auto) 0.0 K/mm3 (0.0-0.1) 05/04/21 09:41 Add Manual Diff Complete 05/03/21 04:52 Total Counted 100 05/03/21 04:52 Seg Neutrophils % 84.7 % (40.0-70.0) H 05/04/21 09:41 Seg Neuts % (Manual) 86.0 % (40.0-70.0) H 05/03/21 04:52 Band Neutrophils % 8.0 % 05/03/21 04:52 Lymphocytes % (Manual) 3.0 % (13.4-35.0) L 05/03/21 04:52 Reactive Lymphs % (Man) 0 % 05/03/21 04:52 Monocytes % (Manual) 2.0 % (0.0-7.3) 05/03/21 04:52 Eosinophils % (Manual) 1.0 % (0.0-4.3) 05/03/21 04:52 Basophils % (Manual) 0 % (0.0-1.8) 05/03/21 04:52 Metamyelocytes % 0 % 05/03/21 04:52 Myelocytes % 0 % 05/03/21 04:52 Promyelocytes % 0 % 05/03/21 04:52 Blast Cells % 0 % 05/03/21 04:52 Nucleated RBC % Not Reportable 05/03/21 04:52 Seg Neutrophils # 4.6 K/mm3 (1.8-7.7) 05/04/21 09:41 Seg Neutrophils # Man 3.9 K/mm3 (1.8-7.7) 05/03/21 04:52 Band Neutrophils # 0.4 K/mm3 05/03/21 04:52 Lymphocytes # (Manual) 0.1 K/mm3 (1.2-5.4) L 05/03/21 04:52 Abs React Lymphs (Man) 0.0 K/mm3 05/03/21 04:52 Monocytes # (Manual) 0.1 K/mm3 (0.0-0.8) 05/03/21 04:52 Eosinophils # (Manual) 0.0 K/mm3 (0.0-0.4) 05/03/21 04:52 Basophils # (Manual) 0.0 K/mm3 (0.0-0.1) 05/03/21 04:52 Metamyelocytes # 0.0 K/mm3 05/03/21 04:52 Myelocytes # 0.0 K/mm3 05/03/21 04:52 Promyelocytes # 0.0 K/mm3 05/03/21 04:52 Blast Cells # 0.0 K/mm3 05/03/21 04:52 WBC Morphology Not Reportable 05/03/21 04:52 Hypersegmented Neuts Not Reportable 05/03/21 04:52 Hyposegmented Neuts Not Reportable 05/03/21 04:52 Hypogranular Neuts Not Reportable 05/03/21 04:52 Smudge Cells Not Reportable 05/03/21 04:52 Toxic Granulation Not Reportable 05/03/21 04:52 Toxic Vacuolation Not Reportable 05/03/21 04:52 Dohle Bodies Not Reportable 05/03/21 04:52 Pelger-Huet Anomaly Not Reportable 05/03/21 04:52 Shanti Rods Not Reportable 05/03/21 04:52 Platelet Estimate Consistent w auto 05/03/21 04:52 Clumped Platelets Not Reportable 05/03/21 04:52 Plt Clumps, EDTA Not Reportable 05/03/21 04:52 Large Platelets Not Reportable 05/03/21 04:52 Giant Platelets Not Reportable 05/03/21 04:52 Platelet Satelliting Not Reportable 05/03/21 04:52 Plt Morphology Comment Not Reportable 05/03/21 04:52 RBC Morphology Not Reportable 05/03/21 04:52 Dimorphic RBCs Not Reportable 05/03/21 04:52 Polychromasia Not Reportable 05/03/21 04:52 Hypochromasia 2+ 05/03/21 04:52 Poikilocytosis Not Reportable 05/03/21 04:52 Anisocytosis 1+ 05/03/21 04:52 Microcytosis Not Reportable 05/03/21 04:52 Macrocytosis Few 05/03/21 04:52 Spherocytes Not Reportable 05/03/21 04:52 Pappenheimer Bodies Not Reportable 05/03/21 04:52 Sickle Cells Not Reportable 05/03/21 04:52 Target Cells Not Reportable 05/03/21 04:52 Tear Drop Cells Not Reportable 05/03/21 04:52 Ovalocytes Few 05/03/21 04:52 Helmet Cells Not Reportable 05/03/21 04:52 Marcelino-Edmundson Bodies Not Reportable 05/03/21 04:52 [place] Rings Not Reportable 05/03/21 04:52 Jossue Cells Not Reportable 05/03/21 04:52 Bite Cells Not Reportable 05/03/21 04:52 Crenated Cell Not Reportable 05/03/21 04:52 Elliptocytes Not Reportable 05/03/21 04:52 Acanthocytes (Spur) Not Reportable 05/03/21 04:52 Rouleaux Not Reportable 05/03/21 04:52 Hemoglobin C Crystals Not Reportable 05/03/21 04:52 Schistocytes Not Reportable 05/03/21 04:52 Malaria parasites Not Reportable 05/03/21 04:52 Anatoly Bodies Not Reportable 05/03/21 04:52 Hem Pathologist Commnt No 05/03/21 04:52 PT 15.1 Sec. (12.2-14.9) H 05/02/21 05:16 INR 1.07 (0.87-1.13) 05/02/21 05:16 APTT 41.7 Sec. (24.2-36.6) H 05/02/21 05:16 D-Dimer 2342.13 ng/mlDDU (0-234) H 05/09/21 06:47 Heparin Anti-Xa, Unfract Negative (Negative) 05/06/21 14:14 ABG pH 7.502 pH Units (7.350-7.450) H 05/12/21 08:25 ABG pCO2 45.2 mm Hg 05/12/21 08:25 ABG pO2 223.9 mm Hg (80.0-90.0) H 05/12/21 08:25 ABG HCO3 34.6 mmol/L (20.0-26.0) H 05/12/21 08:25 ABG O2 Saturation 99.4 % (95.0-99.0) H 05/12/21 08:25 ABG O2 Content 7.9 (0.0-44) 05/12/21 08:25 ABG Base Excess 10.5 mmol/L (-2.0-3.0) H 05/12/21 08:25 ABG Hemoglobin 5.3 gm/dl (12.0-16.0) L 05/12/21 08:25 ABG Carboxyhemoglobin 1.8 % (0.0-5.0) 05/12/21 08:25 ABG Methemoglobin 0.5 % (0.0-1.5) 05/12/21 08:25 Oxyhemoglobin 97.1 % (95.0-99.0) 05/12/21 08:25 FiO2 40 % 05/12/21 08:25 Sodium 142 mmol/L (137-145) 05/14/21 05:15 Potassium 4.2 mmol/L (3.6-5.0) 05/14/21 05:15 Chloride 100.2 mmol/L (98-107) 05/14/21 05:15 Carbon Dioxide 31 mmol/L (22-30) H 05/14/21 05:15 Anion Gap 15 mmol/L 05/14/21 05:15 BUN 40 mg/dL (7-17) H 05/14/21 05:15 Creatinine 0.9 mg/dL (0.6-1.2) 05/14/21 05:15 Estimated GFR > 60 ml/min 05/14/21 05:15 BUN/Creatinine Ratio 44 % 05/14/21 05:15 Glucose 114 mg/dL (65-100) H 05/14/21 05:15 POC Glucose 113 mg/dL (70-105) H 05/14/21 11:48 Lactic Acid 0.80 mmol/L (0.7-2.0) 05/02/21 05:53 Calcium 9.4 mg/dL (8.4-10.2) 05/14/21 05:15 Phosphorus 2.90 mg/dL (2.5-4.5) D 05/06/21 04:56 Magnesium 2.70 mg/dL (1.7-2.3) H 05/11/21 04:43 Ferritin 500.1 ng/mL (10.0-200.0) H 05/09/21 06:47 Total Bilirubin 0.20 mg/dL (0.1-1.2) 05/09/21 13:16 Direct Bilirubin < 0.2 mg/dL (0-0.2) 05/09/21 13:16 Indirect Bilirubin 0.0 mg/dL 05/09/21 13:16 AST 28 units/L (5-40) 05/09/21 13:16 ALT 37 units/L (7-56) 05/09/21 13:16 Alkaline Phosphatase 100 units/L (35-129) 05/09/21 13:16 Lactate Dehydrogenase 212 units/L (91-180) H 05/09/21 06:47 Total Creatine Kinase 189 units/L (30-135) H 05/02/21 05:53 Troponin T < 0.010 ng/mL (0.00-0.029) 05/02/21 05:16 C-Reactive Protein 12.90 mg/dL (0.00-1.30) H 05/09/21 06:47 NT-Pro-B Natriuret Pep 341.7 pg/mL (0-900) 05/02/21 05:17 Total Protein 8.3 g/dL (6.3-8.2) H 05/09/21 13:16 Albumin 2.6 g/dL (3.9-5) L 05/09/21 13:16 Albumin/Globulin Ratio 0.5 % 05/09/21 13:16 Triglycerides 62 mg/dL (2-149) 05/07/21 04:34 Procalcitonin 0.74 ng/mL (<0.15) 05/03/21 04:52 TSH 9.910 mlU/mL (0.270-4.200) H 05/07/21 04:34 Free T4 0.61 ng/dL (0.76-1.46) L 05/07/21 04:34 Heparin-induced Plt Ab Negative (Negative) 05/06/21 14:14 UF Heparin High Dose 0 % Release 05/06/21 14:14 ALEXEY UFH Low Dose 0.1 0 % Release 05/06/21 14:14 ALEXEY UFH Low Dose 0.5 0 % Release 05/06/21 14:14 Coronavirus (PCR) Positive (Negative) A 05/03/21 Unknown Blood Type O POSITIVE 05/11/21 17:20 Antibody Screen Negative 05/11/21 17:20 Crossmatch See Detail 05/11/21 17:20 Peoples/IV: Voiding Method Incontinent Active Medications - Current Medications Current Medications: Generic Name Dose Route Start Last Admin Trade Name Freq PRN Reason Stop Dose Admin Acetaminophen 650 mg 05/14/21 14:06 Acetaminophen 650 Mg Rect Supp [place] Q4H PRN Fever >101 Dextrose 0 ml 05/03/21 11:20 05/07/21 05:45 Dextrose 10% *Hypoglycemia IV 50 ml PRN PRN Administration Hypoglycemia Diphenhydramine HCl 25 mg 05/14/21 14:06 Diphenhydramine 50 Mg/Ml Vial IV Q4H PRN Itching Hydrophilic Ointment 1 applic 05/07/21 20:35 Lip Therapy Vaseline TP Q2HR PRN Dry Lips Lorazepam 2 mg 05/14/21 14:06 05/14/21 14:15 Lorazepam 2 Mg/Ml Vial IV 2 mg Q1H PRN Administration anxiety/insomnia Lorazepam 2 mg 05/14/21 14:06 Lorazepam 2 Mg/Ml Vial IV Q1H PRN Dyspnea Morphine Sulfate 2 mg 05/14/21 14:06 05/14/21 14:15 Morphine 2 Mg/1 Ml Inj IV 2 mg Q30MIN PRN Administration Dyspnea Multi-Ingred Cream/Lotion/Oil/Oint 1 applic 05/14/21 14:11 Mineral Oil/Petrolatum, White Ophth Oint 3.5 Gm OU Q4HR PRN Dry Eye(s) Ondansetron HCl 4 mg 05/02/21 08:59 Ondansetron 4 Mg/2 Ml Inj IV Q8H PRN Nausea And Vomiting Sodium Chloride 10 ml 05/02/21 10:00 05/14/21 10:50 Sodium Chloride 0.9% 10 Ml Flush Syringe IV 10 ml BID JHON Administration Sodium Chloride 10 ml 05/02/21 08:59 Sodium Chloride 0.9% 10 Ml Flush Syringe IV PRN PRN LINE FLUSH Sodium Chloride 10 ml 05/06/21 09:58 05/08/21 21:30 Sodium Chloride 0.9% 50 Ml Ivpb IV 10 ml PRN PRN Administration FLUSH Nutrition/Malnutrition Assess - Dietary Evaluation Nutrition/Malnutrition Findings: Nutrition Notes Start: 05/03/21 14:27 Freq: Status: Active Protocol: Document 05/13/21 15:28 MEKA (Rec: 05/13/21 15:35 NHALL [id number]) Nutrition Notes Initial or Follow up Reassessment Current Diagnosis Hypertension,Respiratory Failure Other Pertinent Diagnosis COVID-19, Pneumonia, Bradycardia/PEA arrest, Constipation, Transaminitis, M Current Diet TF - Osmolite 1.5 at 40ml/hr Labs/Tests BUN 59 Cr 1.3 Pertinent Medications Reviewed Height 5 ft 6 in Weight 47.94 kg Cecil Body Weight (kg) 59.09 BMI 17.0 Weight Status Underweight Subjective/Other Information Pt remains on vent support. Pt scheduled for trach/PEG placement tomorrow. Per RN, pt tolerating TF; last BM was 05/10. Pt receives colace, senokot, and miralax daily. Percent of energy/protein needs met: 100% energy and pro Burn Absent Trauma Absent GI Symptoms Constipation #1 Nutrition Diagnosis Inadequate oral intake Diagnosis Progress(for reassessment Continues documentation) Is patient on ventilator? Yes Is Patient Ambulatory and/or Out of Bed No REE-([facility]-confined to bed) 1119.252 Kcal/Kg value to use for calculation 30 Approximate Energy Requirements Using 1438 kcal/Kg Calculation Used for Recommendations Kcal/kg Additional Notes Pro needs 1.2-2g/k-96g/ day Fluid needs 1ml/kcal Nutrition Intervention Nutrition Support: Continue Osmolite 1.5 at 40ml/ hr with scheduled water flushes. Kcal 1,440 Protein (gm) 60 Carbohydrates (gm) 195 Fat (gm) 47 Fluid (mL) 732 Fiber (gm) 0 Goal #1 TF tolerance Goal #2 TF to meet 100% energy and pro needs Goal #3 Wt maintenance and/or gain Follow-Up By: 05/17/21 Additional Comments F/U: Trach/PEG placement, BM, vent status
--- NOTE | 2021-05-14 12:36 | Progress Note ---
Assessment and Plan 89-year-old female with a past medical history of hyper tension presenting to our facility with altered mental status, decreased responsiveness, bradycardia brought to the ED who 1 and then went to PEA arrest. ACLS protocol initiated with ROSC achieved. Patient taken to [facility] for temporary PPM Acute Encephalopathy Acute Respiratory Failure COVID-19 Infection Symptomatic Bradycardia (TVP removed) S/p PEA Arrest S/p Cardiogenic Shock Moderate MR MICHEAL (resolved) Hyponatremia Hyperkalemia (resolved) Anemia Thrombocytopenia Elevated LFTs HTN Euthyroid Sick Syndrome Echo 05/02/2021-EF 65 to 70%. Severe concentric LVH. Mild diastolic dysfunction is present impaired relaxation pattern. Moderate mitral regurgitation. Right ventricle is dilated. Right ventricular systolic function is normal device lead is present in right ventricle. Right atrium is dilated. No pericardial effusion Plan: Patient heart rate trending 90s Continue present management Agree with hydralazine for hypertension Patient seen in conjunction with Dr. Salazar who agrees with this plan of care - Patient Problems (1) Symptomatic bradycardia Current Visit: Yes Status: Acute Subjective Date of service: 05/14/21 Principal diagnosis: Symptomatic bradycardia; AHRF; Cardiogenic shock; Thrombocytopenia; AMS Interval history: Patient remains intubated and sedated Patient trending sinus 80-90s with PACs Objective Vital Signs Temp Pulse Pulse Resp BP Pulse Ox 05/14/21 12:18 64 154/34 96 05/14/21 11:00 67 11 L 147/46 96 05/14/21 10:30 70 11 L 145/45 98 05/14/21 10:00 71 12 182/55 98 05/14/21 09:30 75 12 157/47 96 05/14/21 09:00 73 16 166/39 96 05/14/21 08:42 67 173/46 96 05/14/21 08:30 76 15 173/46 96 05/14/21 08:00 99 F 66 73 13 189/55 97 05/14/21 07:30 79 18 178/49 98 05/14/21 07:00 71 14 184/69 97 05/14/21 06:30 67 11 L 178/61 96 05/14/21 06:00 67 12 178/70 98 05/14/21 05:30 64 13 164/67 96 05/14/21 05:24 69 184/60 05/14/21 05:00 83 17 146/62 99 0201/22 04:30 64 9 L 146/62 97 05/14/21 04:07 72 124/67 98 05/14/21 04:00 82 73 9 L 124/67 98 05/14/21 03:30 74 10 L 138/61 99 05/14/21 03:00 70 12 134/60 99 05/14/21 02:30 73 11 L 148/55 98 05/14/21 02:00 72 11 L 157/52 98 05/14/21 01:30 79 11 L 158/56 98 05/14/21 01:00 77 9 L 141/59 97 05/14/21 00:59 78 140/59 98 05/14/21 00:30 80 11 L 140/59 97 05/14/21 00:04 89 10 L 133/66 96 05/14/21 00:00 98.6 F 71 87 9 L 133/66 96 05/13/21 23:30 75 9 L 142/65 97 05/13/21 23:00 85 15 175/64 97 05/13/21 22:30 75 12 161/65 98 05/13/21 22:00 74 11 L 169/71 97 05/13/21 21:30 73 13 166/65 98 05/13/21 21:00 81 11 L 159/88 98 05/13/21 20:30 90 9 L 156/69 97 05/13/21 20:00 97.8 F 92 H 87 16 156/69 97 05/13/21 19:41 85 182/64 98 05/13/21 19:30 90 15 182/64 98 05/13/21 19:00 88 13 189/70 98 05/13/21 18:57 92 H 190/77 05/13/21 18:30 89 18 180/89 98 05/13/21 18:00 94 H 15 180/89 98 05/13/21 17:30 80 13 194/77 97 05/13/21 17:00 89 15 177/80 97 05/13/21 16:30 92 H 17 55/24 97 05/13/21 16:21 96 H 96 05/13/21 16:00 98.5 F 100 H 100 H 20 182/71 97 05/13/21 15:43 99 H 05/13/21 15:30 94 H 16 182/71 97 05/13/21 15:00 88 14 164/73 95 05/13/21 14:30 97 H 19 159/62 95 05/13/21 14:00 88 14 159/62 95 05/13/21 13:57 89 164/64 05/13/21 13:30 103 H 17 164/64 93 05/13/21 13:00 109 H 17 175/67 92 05/13/21 12:41 112 H 186/57 95 - Physical Examination General: Other (intubated and sedated) HEENT: Positive: Mucus Membranes Moist Neck: Positive: neck supple, trachea midline Cardiac: Positive: Reg Rate and Rhythm Lungs: Positive: Ventilated Respirations Neuro: Positive: Other (Pt intubated not following commands) Abdomen: Positive: Soft, Distended Skin: Negative: Rash Extremities: Present: Cool. Absent: edema - Labs and Meds CBC 05/14/21 Range/Units 05:15 WBC 6.5 (4.5-11.0) K/mm3 RBC 2.73 L (3.65-5.03) M/mm3 Hgb 7.9 L (10.1-14.3) gm/dl Hct 25.0 L (30.3-42.9) % Plt Count 295 (140-440) K/mm3 Comprehensive Metabolic Panel 05/14/21 Range/Units 05:15 Sodium 142 (137-145) mmol/L Potassium 4.2 (3.6-5.0) mmol/L Chloride 100.2 (98-107) mmol/L Carbon Dioxide 31 H (22-30) mmol/L BUN 40 H (7-17) mg/dL Creatinine 0.9 (0.6-1.2) mg/dL Glucose 114 H (65-100) mg/dL Calcium 9.4 (8.4-10.2) mg/dL - Imaging and Cardiology EKG: report reviewed, image reviewed Echo: report reviewed - Telemetry EKG Rhythm: Sinus Rhythm - EKG Sinus rhythms and dysrhythmias: sinus rhythm Supraventricular dysrhythmia: atrial premature complexe AV and intraventricular conduction: 1 AV block Repolarization changes or abnormalities: nonspecific abnormality, ST segment, and/or T wave - Allied health notes Allied health notes reviewed: nursing
[2021-05-14] MEDS: fentaNYL DRIP Premix 2,000 MCG/100 ML BAG IV SCH (13:07)
[2021-05-14] MEDS ORDERED: WATER FOR IRRIG STERILE 250 ML BOTTLE IR ONE (13:13)
[2021-05-14] MEDS ORDERED: WATER FOR IRRIG STERILE 1,000 ML BOTTLE ONE (13:13)
--- NOTE | 2021-05-14 13:40 | Progress Note ---
Assessment and Plan Symptomatic bradycardia with subsequent PEA arrest status post ROSC Acute hypoxic respiratory failure Cardiogenic shock Hypothyroidism Thrombocytopenia Acute metabolic encephalopathy Leukopenia Anemia Transaminitis Hypothermia Hyperkalemia - family to come in for visit - withdrawal vs trach & PEG thereafter - continue care as below otherwise; - continue Robinul and Mucomyst for better secretion control - continue Seroquel - wean vasopressors for target MAP > 65 mmHg - continue Daily SAT and SBT assessment as tolerated - continue bronchodilators with pulmonary hygiene per RT - continue to wean supplemental oxygen for target O2 sat's > 90% acutely - VAP bundle addressed - continue lung protective strategies - continue bronchodilators with pulmonary hygiene per RT - wean per pulmonary driven protocols otherwise - sedation prn for target RASS 0 to -1 - AB's per ID recommendations - continue accuchecks with glycemic control per SSI (While critically ill target blood glucose of 140-180 mg/dL; avoid hypoglycemia) - avoid nephrotoxins, renally dose all medications - continue to avoid benzodiazepine's, reduce the possibility of delirium - prn analgesia per CPOT score - Maintenance of sleep-wake cycle, avoid delirium - continue enteral nutritional support at goal rate as tolerated - G.I. & VTE prophylaxis (VTE prophylaxis with SCDs; She has required supportive blood transfusions and has thrombocytopenia) - PT/OT/ROM exercises - mobility protocols for pressure ulcer prophylaxis - Monitor hemodynamics closely - continue other care per attending / other consultants - discharge planning ongoing concurrently COVID SPECIFIC INTERVENTIONS - Remdesivir as per ID/Pulmonary developed protocols - continue systemic steroids for severe COVID-19 infection empirically (Dexamethasone) - follow repeat COVID tests results - zinc and vitamin C supplementation - Monitor inflammatory markers per facility protocol - ferritin, Ddimer, CRP - therapeutic anticoagulation per system Protocol based on d-dimer and clinical considerations - Continue contact and airborne isolation .... Re-evaluate in am & prn CONDITION: CRITICAL PROGNOSIS: GUARDED CODE STATUS: FULL CODE The high probability of a clinically significant, sudden or life-threatening deterioration of the [respiratory, cardiovascular & neurologic] system(s) required my full and direct attention, intervention and personal management. The aggregate critical care time was [34] minutes without overlap. Time includes spent on; [x] Data Review and interpretation [x] Patient assessment and monitoring of vital signs [x] Documentation [x] Medication orders and management Subjective Date of service: 05/14/21 Principal diagnosis: Symptomatic bradycardia; AHRF; Cardiogenic shock; Thrombocytopenia; AMS Interval history: Patient is seen today for: Symptomatic bradycardia; Acute hypoxic respiratory failure; Cardiogenic shock; Hypothyroidism; Thrombocytopenia; AMS; Hyperkalemia Seen and examined at bedside; 24hour events reviewed; nursing and respiratory care staff consulted; no adverse overnight events reported to me; resting in bed; remains on MVS; family initially consented for trach and PEG but reportedly have now decided on withdrawal Objective Vital Signs - 12hr 05/14/21 05/14/21 05/14/21 02:00 02:30 03:00 Temperature Pulse Rate 72 73 70 Pulse Rate [ From Monitor] Respiratory 11 L 11 L 12 Rate Blood Pressure 157/52 148/55 134/60 O2 Sat by Pulse 98 98 99 Oximetry 05/14/21 05/14/21 05/14/21 03:30 04:00 04:07 Temperature Pulse Rate 74 82 72 Pulse Rate [ 73 From Monitor] Respiratory 10 L 9 L Rate Blood Pressure 138/61 124/67 124/67 O2 Sat by Pulse 99 98 98 Oximetry 05/14/21 05/14/21 05/14/21 04:30 05:00 05:24 Temperature Pulse Rate 64 83 69 Pulse Rate [ From Monitor] Respiratory 9 L 17 Rate Blood Pressure 146/62 146/62 184/60 O2 Sat by Pulse 97 99 Oximetry 05/14/21 05/14/21 05/14/21 05:30 06:00 06:30 Temperature Pulse Rate 64 67 67 Pulse Rate [ From Monitor] Respiratory 13 12 11 L Rate Blood Pressure 164/67 178/70 178/61 O2 Sat by Pulse 96 98 96 Oximetry 05/14/21 05/14/21 05/14/21 07:00 07:30 08:00 Temperature 99 F Pulse Rate 71 79 66 Pulse Rate [ 73 From Monitor] Respiratory 14 18 13 Rate Blood Pressure 184/69 178/49 189/55 O2 Sat by Pulse 97 98 97 Oximetry 05/14/21 05/14/21 05/14/21 08:30 08:42 09:00 Temperature Pulse Rate 76 67 73 Pulse Rate [ From Monitor] Respiratory 15 16 Rate Blood Pressure 173/46 173/46 166/39 O2 Sat by Pulse 96 96 96 Oximetry 05/14/21 05/14/21 05/14/21 09:30 10:00 10:30 Temperature Pulse Rate 75 71 70 Pulse Rate [ From Monitor] Respiratory 12 12 11 L Rate Blood Pressure 157/47 182/55 145/45 O2 Sat by Pulse 96 98 98 Oximetry 05/14/21 05/14/21 05/14/21 11:00 11:30 12:00 Temperature 97.9 F Pulse Rate 67 72 69 Pulse Rate [ 73 From Monitor] Respiratory 11 L 13 11 L Rate Blood Pressure 147/46 147/46 154/34 O2 Sat by Pulse 96 98 98 Oximetry 05/14/21 05/14/21 12:18 12:30 Temperature Pulse Rate 64 69 Pulse Rate [ From Monitor] Respiratory 12 Rate Blood Pressure 154/34 154/34 O2 Sat by Pulse 96 96 Oximetry Constitutional: no acute distress, other (elderly female with mildly increased respiratory effort at rest on MVS) Eyes: non-icteric ENT: oropharynx moist, other (ETT 24 cm HIMANSHU) Neck: supple, no lymphadenopathy, no JVD Effort: normal Ascultation: Bilateral: diminished breath sounds, rales (bilateral) Percussion: Bilateral: not dull Cardiovascular: regular rate and rhythm, other (S1,S2) Gastrointestinal: normoactive bowel sounds, soft, non-distended, other (distended suprapubic area- possibly bladder) Integumentary: normal Extremities: no cyanosis, no edema, pulses normal, no ischemia or petechiae Neurologic: non-focal exam (grossly), pupils equal and round, unable to assess, other (sedated) Psychiatric: other (delirious) CBC and BMP: 05/14/21 05:15 05/14/21 05:15 ABG, PT/INR, D-dimer: ABG ABG pH 7.502 pH Units (7.350-7.450) H 05/12/21 08:25 ABG pCO2 45.2 mm Hg 05/12/21 08:25 ABG pO2 223.9 mm Hg (80.0-90.0) H 05/12/21 08:25 ABG O2 Saturation 99.4 % (95.0-99.0) H 05/12/21 08:25 PT/INR, D-dimer PT 15.1 Sec. (12.2-14.9) H 05/02/21 05:16 INR 1.07 (0.87-1.13) 05/02/21 05:16 D-Dimer 2342.13 ng/mlDDU (0-234) H 05/09/21 06:47 Abnormal lab findings: Abnormal Labs 05/02/21 05/02/21 05/02/21 05:16 05:16 05:16 WBC 2.9 L RBC 2.36 L Hgb 7.4 L Hct 22.2 L RDW 18.2 H Plt Count Lymph % (Auto) Lymph # (Auto) 0.5 L Seg Neutrophils % 76.5 H Seg Neuts % (Manual) Lymphocytes % (Manual) Lymphocytes # (Manual) PT 15.1 H APTT 41.7 H D-Dimer ABG pH ABG pO2 ABG HCO3 ABG O2 Saturation ABG Base Excess ABG Hemoglobin Oxyhemoglobin Sodium 129 L Potassium 6.2 H* Chloride 97.0 L Carbon Dioxide BUN Creatinine Glucose POC Glucose Magnesium Ferritin AST ALT Lactate Dehydrogenase Total Creatine Kinase C-Reactive Protein Total Protein Albumin TSH Free T4 Coronavirus (PCR) Crossmatch 05/02/21 05/02/21 05/02/21 05:17 05:53 06:41 WBC RBC Hgb Hct RDW Plt Count Lymph % (Auto) Lymph # (Auto) Seg Neutrophils % Seg Neuts % (Manual) Lymphocytes % (Manual) Lymphocytes # (Manual) PT APTT D-Dimer ABG pH ABG pO2 ABG HCO3 ABG O2 Saturation ABG Base Excess ABG Hemoglobin Oxyhemoglobin Sodium Potassium Chloride Carbon Dioxide BUN Creatinine Glucose POC Glucose Magnesium Ferritin AST 144 H ALT 115 H Lactate Dehydrogenase Total Creatine Kinase 189 H C-Reactive Protein Total Protein 9.6 H Albumin 2.9 L TSH 10.350 H Free T4 0.61 L Coronavirus (PCR) Crossmatch 05/02/21 05/02/21 05/03/21 11:50 15:56 04:52 WBC RBC 2.20 L Hgb 6.8 L Hct 20.6 L RDW 18.4 H Plt Count Lymph % (Auto) Lymph # (Auto) Seg Neutrophils % Seg Neuts % (Manual) 86.0 H Lymphocytes % (Manual) 3.0 L Lymphocytes # (Manual) 0.1 L PT APTT D-Dimer ABG pH ABG pO2 352.4 H ABG HCO3 ABG O2 Saturation 99.5 H ABG Base Excess ABG Hemoglobin 6.9 L Oxyhemoglobin Sodium Potassium 5.8 H Chloride Carbon Dioxide BUN Creatinine Glucose POC Glucose Magnesium Ferritin AST ALT Lactate Dehydrogenase Total Creatine Kinase C-Reactive Protein Total Protein Albumin TSH Free T4 Coronavirus (PCR) Crossmatch 05/03/21 05/03/21 05/03/21 04:52 10:10 10:23 WBC RBC Hgb Hct RDW Plt Count Lymph % (Auto) Lymph # (Auto) Seg Neutrophils % Seg Neuts % (Manual) Lymphocytes % (Manual) Lymphocytes # (Manual) PT APTT D-Dimer ABG pH ABG pO2 177.2 H ABG HCO3 ABG O2 Saturation 99.1 H ABG Base Excess ABG Hemoglobin 7.1 L Oxyhemoglobin Sodium 129 L Potassium 6.2 H* Chloride 97.0 L Carbon Dioxide BUN 25 H Creatinine Glucose POC Glucose 106 H Magnesium Ferritin AST 152 H ALT 127 H Lactate Dehydrogenase Total Creatine Kinase C-Reactive Protein Total Protein 8.6 H Albumin 2.6 L TSH Free T4 Coronavirus (PCR) Crossmatch 05/03/21 05/03/21 05/03/21 13:11 14:13 16:49 WBC RBC Hgb Hct RDW Plt Count Lymph % (Auto) Lymph # (Auto) Seg Neutrophils % Seg Neuts % (Manual) Lymphocytes % (Manual) Lymphocytes # (Manual) PT APTT D-Dimer ABG pH ABG pO2 ABG HCO3 ABG O2 Saturation ABG Base Excess ABG Hemoglobin Oxyhemoglobin Sodium Potassium Chloride Carbon Dioxide BUN Creatinine Glucose POC Glucose 116 H 58 L Magnesium Ferritin AST ALT Lactate Dehydrogenase Total Creatine Kinase C-Reactive Protein Total Protein Albumin TSH Free T4 Coronavirus (PCR) Crossmatch See Detail 05/03/21 05/03/21 05/03/21 17:34 19:58 20:07 WBC RBC Hgb Hct RDW Plt Count Lymph % (Auto) Lymph # (Auto) Seg Neutrophils % Seg Neuts % (Manual) Lymphocytes % (Manual) Lymphocytes # (Manual) PT APTT D-Dimer ABG pH ABG pO2 ABG HCO3 ABG O2 Saturation ABG Base Excess ABG Hemoglobin Oxyhemoglobin Sodium 131 L Potassium 5.7 H Chloride 97.7 L Carbon Dioxide 21 L BUN 28 H Creatinine 1.4 H Glucose 130 H POC Glucose 123 H 122 H Magnesium Ferritin AST ALT Lactate Dehydrogenase Total Creatine Kinase C-Reactive Protein Total Protein Albumin TSH Free T4 Coronavirus (PCR) Crossmatch 05/03/21 05/03/21 05/04/21 Unknown 23:59 02:59 WBC RBC Hgb Hct RDW Plt Count Lymph % (Auto) Lymph # (Auto) Seg Neutrophils % Seg Neuts % (Manual) Lymphocytes % (Manual) Lymphocytes # (Manual) PT APTT D-Dimer ABG pH ABG pO2 ABG HCO3 ABG O2 Saturation ABG Base Excess ABG Hemoglobin Oxyhemoglobin Sodium Potassium Chloride Carbon Dioxide BUN Creatinine Glucose POC Glucose 117 H 142 H Magnesium Ferritin AST ALT Lactate Dehydrogenase Total Creatine Kinase C-Reactive Protein Total Protein Albumin TSH Free T4 Coronavirus (PCR) Positive A Crossmatch 05/04/21 05/04/21 05/04/21 03:15 09:41 09:41 WBC RBC 2.28 L Hgb 7.1 L Hct 21.4 L RDW 18.5 H Plt Count 97 L Lymph % (Auto) 10.4 L Lymph # (Auto) 0.6 L Seg Neutrophils % 84.7 H Seg Neuts % (Manual) Lymphocytes % (Manual) Lymphocytes # (Manual) PT APTT D-Dimer ABG pH ABG pO2 ABG HCO3 ABG O2 Saturation ABG Base Excess ABG Hemoglobin 6.9 L Oxyhemoglobin 94.9 L Sodium 132 L Potassium Chloride Carbon Dioxide 21 L BUN 33 H Creatinine 1.4 H Glucose 143 H POC Glucose Magnesium Ferritin AST ALT Lactate Dehydrogenase Total Creatine Kinase C-Reactive Protein Total Protein Albumin TSH Free T4 Coronavirus (PCR) Crossmatch 05/04/21 05/04/21 05/04/21 11:43 16:48 21:31 WBC RBC Hgb Hct RDW Plt Count Lymph % (Auto) Lymph # (Auto) Seg Neutrophils % Seg Neuts % (Manual) Lymphocytes % (Manual) Lymphocytes # (Manual) PT APTT D-Dimer ABG pH ABG pO2 ABG HCO3 ABG O2 Saturation ABG Base Excess ABG Hemoglobin Oxyhemoglobin Sodium Potassium Chloride Carbon Dioxide BUN Creatinine Glucose POC Glucose 125 H 129 H 124 H Magnesium Ferritin AST ALT Lactate Dehydrogenase Total Creatine Kinase C-Reactive Protein Total Protein Albumin TSH Free T4 Coronavirus (PCR) Crossmatch 05/05/21 05/05/21 05/05/21 01:32 02:30 04:35 WBC RBC Hgb Hct RDW Plt Count Lymph % (Auto) Lymph # (Auto) Seg Neutrophils % Seg Neuts % (Manual) Lymphocytes % (Manual) Lymphocytes # (Manual) PT APTT D-Dimer ABG pH ABG pO2 123.1 H ABG HCO3 ABG O2 Saturation ABG Base Excess ABG Hemoglobin 5.9 L Oxyhemoglobin Sodium Potassium Chloride Carbon Dioxide BUN Creatinine Glucose POC Glucose 128 H Magnesium Ferritin AST 54 H ALT 70 H Lactate Dehydrogenase Total Creatine Kinase C-Reactive Protein Total Protein 8.4 H Albumin 2.5 L TSH Free T4 Coronavirus (PCR) Crossmatch 05/05/21 05/05/21 05/05/21 04:35 04:35 06:11 WBC 4.4 L RBC 2.04 L Hgb 6.3 L Hct 19.1 L* RDW 18.3 H Plt Count 77 L Lymph % (Auto) Lymph # (Auto) Seg Neutrophils % Seg Neuts % (Manual) Lymphocytes % (Manual) Lymphocytes # (Manual) PT APTT D-Dimer ABG pH ABG pO2 ABG HCO3 ABG O2 Saturation ABG Base Excess ABG Hemoglobin Oxyhemoglobin Sodium 131 L Potassium Chloride Carbon Dioxide 21 L BUN 31 H Creatinine Glucose 158 H POC Glucose 165 H Magnesium 2.40 H Ferritin AST ALT Lactate Dehydrogenase Total Creatine Kinase C-Reactive Protein Total Protein Albumin TSH Free T4 Coronavirus (PCR) Crossmatch 05/05/21 05/05/21 05/05/21 07:20 17:01 23:25 WBC RBC Hgb Hct RDW Plt Count Lymph % (Auto) Lymph # (Auto) Seg Neutrophils % Seg Neuts % (Manual) Lymphocytes % (Manual) Lymphocytes # (Manual) PT APTT D-Dimer ABG pH ABG pO2 ABG HCO3 ABG O2 Saturation ABG Base Excess ABG Hemoglobin Oxyhemoglobin Sodium Potassium Chloride Carbon Dioxide BUN Creatinine Glucose POC Glucose 152 H 114 H 148 H Magnesium Ferritin AST ALT Lactate Dehydrogenase Total Creatine Kinase C-Reactive Protein Total Protein Albumin TSH Free T4 Coronavirus (PCR) Crossmatch 05/06/21 05/06/21 05/06/21 04:56 04:56 05:37 WBC RBC 2.54 L Hgb 7.7 L Hct 23.2 L RDW 18.1 H Plt Count 73 L Lymph % (Auto) Lymph # (Auto) Seg Neutrophils % Seg Neuts % (Manual) Lymphocytes % (Manual) Lymphocytes # (Manual) PT APTT D-Dimer ABG pH ABG pO2 ABG HCO3 ABG O2 Saturation ABG Base Excess ABG Hemoglobin Oxyhemoglobin Sodium 134 L Potassium 5.1 H Chloride Carbon Dioxide BUN 30 H Creatinine Glucose 133 H POC Glucose 120 H Magnesium Ferritin AST ALT Lactate Dehydrogenase Total Creatine Kinase C-Reactive Protein Total Protein Albumin TSH Free T4 Coronavirus (PCR) Crossmatch 05/06/21 05/06/21 05/07/21 14:14 15:40 04:34 WBC RBC 2.69 L Hgb 8.2 L Hct 24.7 L RDW 18.3 H Plt Count 80 L Lymph % (Auto) Lymph # (Auto) Seg Neutrophils % Seg Neuts % (Manual) Lymphocytes % (Manual) Lymphocytes # (Manual) PT APTT D-Dimer ABG pH ABG pO2 72.2 L ABG HCO3 28.0 H ABG O2 Saturation ABG Base Excess 3.6 H ABG Hemoglobin 5.6 L Oxyhemoglobin Sodium Potassium Chloride Carbon Dioxide BUN Creatinine Glucose POC Glucose Magnesium Ferritin AST ALT Lactate Dehydrogenase Total Creatine Kinase C-Reactive Protein 7.30 H Total Protein Albumin TSH Free T4 Coronavirus (PCR) Crossmatch 05/07/21 05/07/21 05/07/21 04:34 04:34 04:34 WBC RBC Hgb Hct RDW Plt Count Lymph % (Auto) Lymph # (Auto) Seg Neutrophils % Seg Neuts % (Manual) Lymphocytes % (Manual) Lymphocytes # (Manual) PT APTT D-Dimer 1661.00 H ABG pH ABG pO2 ABG HCO3 ABG O2 Saturation ABG Base Excess ABG Hemoglobin Oxyhemoglobin Sodium Potassium Chloride Carbon Dioxide BUN 25 H Creatinine Glucose POC Glucose Magnesium Ferritin 410.1 H AST ALT Lactate Dehydrogenase 184 H Total Creatine Kinase C-Reactive Protein 10.70 H Total Protein Albumin TSH Free T4 Coronavirus (PCR) Crossmatch 05/07/21 05/07/21 05/07/21 04:34 04:34 06:14 WBC RBC Hgb Hct RDW Plt Count Lymph % (Auto) Lymph # (Auto) Seg Neutrophils % Seg Neuts % (Manual) Lymphocytes % (Manual) Lymphocytes # (Manual) PT APTT D-Dimer ABG pH ABG pO2 ABG HCO3 ABG O2 Saturation ABG Base Excess ABG Hemoglobin Oxyhemoglobin Sodium Potassium Chloride Carbon Dioxide BUN Creatinine Glucose POC Glucose 134 H Magnesium Ferritin AST ALT Lactate Dehydrogenase Total Creatine Kinase C-Reactive Protein Total Protein Albumin TSH 9.910 H Free T4 0.61 L Coronavirus (PCR) Crossmatch 01/05/07/21 05/07/21 12:42 14:29 16:08 WBC RBC Hgb Hct RDW Plt Count Lymph % (Auto) Lymph # (Auto) Seg Neutrophils % Seg Neuts % (Manual) Lymphocytes % (Manual) Lymphocytes # (Manual) PT APTT D-Dimer ABG pH ABG pO2 ABG HCO3 27.6 H ABG O2 Saturation ABG Base Excess ABG Hemoglobin 8.8 L Oxyhemoglobin Sodium Potassium Chloride Carbon Dioxide BUN Creatinine Glucose POC Glucose 121 H Magnesium Ferritin AST ALT Lactate Dehydrogenase Total Creatine Kinase C-Reactive Protein Total Protein 8.6 H Albumin 3.0 L TSH Free T4 Coronavirus (PCR) Crossmatch 05/07/21 05/07/21 05/07/21 18:19 21:17 21:25 WBC RBC Hgb Hct RDW Plt Count Lymph % (Auto) Lymph # (Auto) Seg Neutrophils % Seg Neuts % (Manual) Lymphocytes % (Manual) Lymphocytes # (Manual) PT APTT D-Dimer ABG pH 7.311 L ABG pO2 95.5 H ABG HCO3 28.6 H ABG O2 Saturation ABG Base Excess ABG Hemoglobin 7.8 L Oxyhemoglobin Sodium Potassium Chloride Carbon Dioxide BUN Creatinine Glucose POC Glucose 149 H 143 H Magnesium Ferritin AST ALT Lactate Dehydrogenase Total Creatine Kinase C-Reactive Protein Total Protein Albumin TSH Free T4 Coronavirus (PCR) Crossmatch 05/08/21 05/08/21 05/08/21 06:33 07:29 09:20 WBC RBC Hgb Hct RDW Plt Count Lymph % (Auto) Lymph # (Auto) Seg Neutrophils % Seg Neuts % (Manual) Lymphocytes % (Manual) Lymphocytes # (Manual) PT APTT D-Dimer ABG pH 7.487 H ABG pO2 70.0 L ABG HCO3 29.3 H ABG O2 Saturation ABG Base Excess 5.5 H ABG Hemoglobin 7.6 L Oxyhemoglobin 94.3 L Sodium Potassium Chloride Carbon Dioxide BUN Creatinine Glucose POC Glucose 148 H 151 H Magnesium Ferritin AST ALT Lactate Dehydrogenase Total Creatine Kinase C-Reactive Protein Total Protein Albumin TSH Free T4 Coronavirus (PCR) Crossmatch 05/08/21 05/08/21 05/08/21 11:23 14:47 14:47 WBC RBC 2.57 L Hgb 7.7 L Hct 24.0 L RDW 17.9 H Plt Count 113 L Lymph % (Auto) Lymph # (Auto) Seg Neutrophils % Seg Neuts % (Manual) Lymphocytes % (Manual) Lymphocytes # (Manual) PT APTT D-Dimer ABG pH ABG pO2 ABG HCO3 ABG O2 Saturation ABG Base Excess ABG Hemoglobin Oxyhemoglobin Sodium 135 L Potassium Chloride Carbon Dioxide BUN 35 H Creatinine Glucose 145 H POC Glucose 124 H Magnesium Ferritin AST ALT Lactate Dehydrogenase Total Creatine Kinase C-Reactive Protein Total Protein Albumin TSH Free T4 Coronavirus (PCR) Crossmatch 05/08/21 05/08/21 05/09/21 17:08 23:23 05:37 WBC RBC Hgb Hct RDW Plt Count Lymph % (Auto) Lymph # (Auto) Seg Neutrophils % Seg Neuts % (Manual) Lymphocytes % (Manual) Lymphocytes # (Manual) PT APTT D-Dimer ABG pH ABG pO2 ABG HCO3 ABG O2 Saturation ABG Base Excess ABG Hemoglobin Oxyhemoglobin Sodium Potassium Chloride Carbon Dioxide BUN Creatinine Glucose POC Glucose 151 H 127 H 118 H Magnesium Ferritin AST ALT Lactate Dehydrogenase Total Creatine Kinase C-Reactive Protein Total Protein Albumin TSH Free T4 Coronavirus (PCR) Crossmatch 05/09/21 05/09/21 05/09/21 06:47 06:47 06:47 WBC RBC Hgb Hct RDW Plt Count Lymph % (Auto) Lymph # (Auto) Seg Neutrophils % Seg Neuts % (Manual) Lymphocytes % (Manual) Lymphocytes # (Manual) PT APTT D-Dimer 2342.13 H ABG pH ABG pO2 ABG HCO3 ABG O2 Saturation ABG Base Excess ABG Hemoglobin Oxyhemoglobin Sodium Potassium Chloride Carbon Dioxide BUN 44 H Creatinine 1.3 H Glucose 122 H POC Glucose Magnesium Ferritin 500.1 H AST ALT Lactate Dehydrogenase 212 H Total Creatine Kinase C-Reactive Protein 12.90 H Total Protein Albumin TSH Free T4 Coronavirus (PCR) Crossmatch 05/09/21 05/09/21 05/09/21 06:47 09:53 13:16 WBC RBC 2.39 L Hgb 7.3 L Hct 22.2 L RDW 17.7 H Plt Count 109 L Lymph % (Auto) Lymph # (Auto) Seg Neutrophils % Seg Neuts % (Manual) Lymphocytes % (Manual) Lymphocytes # (Manual) PT APTT D-Dimer ABG pH ABG pO2 ABG HCO3 ABG O2 Saturation ABG Base Excess ABG Hemoglobin Oxyhemoglobin Sodium Potassium Chloride Carbon Dioxide BUN Creatinine Glucose POC Glucose 132 H Magnesium Ferritin AST ALT Lactate Dehydrogenase Total Creatine Kinase C-Reactive Protein Total Protein 8.3 H Albumin 2.6 L TSH Free T4 Coronavirus (PCR) Crossmatch 05/09/21 05/09/21 05/09/21 14:17 15:20 16:57 WBC RBC Hgb Hct RDW Plt Count Lymph % (Auto) Lymph # (Auto) Seg Neutrophils % Seg Neuts % (Manual) Lymphocytes % (Manual) Lymphocytes # (Manual) PT APTT D-Dimer ABG pH 7.467 H ABG pO2 58.7 L ABG HCO3 31.5 H ABG O2 Saturation 99.3 H ABG Base Excess 7.2 H ABG Hemoglobin Oxyhemoglobin Sodium Potassium Chloride Carbon Dioxide BUN Creatinine Glucose POC Glucose 163 H 159 H Magnesium Ferritin AST ALT Lactate Dehydrogenase Total Creatine Kinase C-Reactive Protein Total Protein Albumin TSH Free T4 Coronavirus (PCR) Crossmatch 05/09/21 05/09/21 05/10/21 21:31 23:53 04:13 WBC RBC Hgb Hct RDW Plt Count Lymph % (Auto) Lymph # (Auto) Seg Neutrophils % Seg Neuts % (Manual) Lymphocytes % (Manual) Lymphocytes # (Manual) PT APTT D-Dimer ABG pH ABG pO2 ABG HCO3 ABG O2 Saturation ABG Base Excess ABG Hemoglobin Oxyhemoglobin Sodium Potassium Chloride Carbon Dioxide BUN Creatinine Glucose POC Glucose 136 H 138 H 110 H Magnesium Ferritin AST ALT Lactate Dehydrogenase Total Creatine Kinase C-Reactive Protein Total Protein Albumin TSH Free T4 Coronavirus (PCR) Crossmatch 05/10/21 05/10/21 05/10/21 04:51 04:51 08:10 WBC RBC 2.59 L Hgb 7.9 L Hct 24.0 L RDW 17.7 H Plt Count Lymph % (Auto) Lymph # (Auto) Seg Neutrophils % Seg Neuts % (Manual) Lymphocytes % (Manual) Lymphocytes # (Manual) PT APTT D-Dimer ABG pH ABG pO2 ABG HCO3 ABG O2 Saturation ABG Base Excess ABG Hemoglobin Oxyhemoglobin Sodium Potassium Chloride Carbon Dioxide BUN 47 H Creatinine Glucose 125 H POC Glucose 142 H Magnesium Ferritin AST ALT Lactate Dehydrogenase Total Creatine Kinase C-Reactive Protein Total Protein Albumin TSH Free T4 Coronavirus (PCR) Crossmatch 05/10/21 05/10/21 05/10/21 11:41 15:12 16:51 WBC RBC Hgb Hct RDW Plt Count Lymph % (Auto) Lymph # (Auto) Seg Neutrophils % Seg Neuts % (Manual) Lymphocytes % (Manual) Lymphocytes # (Manual) PT APTT D-Dimer ABG pH 7.464 H ABG pO2 77.1 L ABG HCO3 34.7 H ABG O2 Saturation ABG Base Excess 10.2 H ABG Hemoglobin 9.4 L Oxyhemoglobin Sodium Potassium Chloride Carbon Dioxide BUN Creatinine Glucose POC Glucose 163 H 147 H Magnesium Ferritin AST ALT Lactate Dehydrogenase Total Creatine Kinase C-Reactive Protein Total Protein Albumin TSH Free T4 Coronavirus (PCR) Crossmatch 05/10/21 05/11/21 05/11/21 22:22 04:43 04:43 WBC RBC 2.26 L Hgb 6.9 L Hct 21.0 L RDW 17.7 H Plt Count Lymph % (Auto) Lymph # (Auto) Seg Neutrophils % Seg Neuts % (Manual) Lymphocytes % (Manual) Lymphocytes # (Manual) PT APTT D-Dimer ABG pH ABG pO2 ABG HCO3 ABG O2 Saturation ABG Base Excess ABG Hemoglobin Oxyhemoglobin Sodium 132 L D Potassium 5.1 H Chloride 95.1 L Carbon Dioxide 31 H BUN 46 H Creatinine Glucose 135 H POC Glucose 133 H Magnesium 2.70 H Ferritin AST ALT Lactate Dehydrogenase Total Creatine Kinase C-Reactive Protein Total Protein Albumin TSH Free T4 Coronavirus (PCR) Crossmatch 05/11/21 05/11/21 05/11/21 05:22 07:47 12:29 WBC RBC Hgb Hct RDW Plt Count Lymph % (Auto) Lymph # (Auto) Seg Neutrophils % Seg Neuts % (Manual) Lymphocytes % (Manual) Lymphocytes # (Manual) PT APTT D-Dimer ABG pH ABG pO2 ABG HCO3 ABG O2 Saturation ABG Base Excess ABG Hemoglobin Oxyhemoglobin Sodium Potassium Chloride Carbon Dioxide BUN Creatinine Glucose POC Glucose 133 H 122 H 143 H Magnesium Ferritin AST ALT Lactate Dehydrogenase Total Creatine Kinase C-Reactive Protein Total Protein Albumin TSH Free T4 Coronavirus (PCR) Crossmatch 05/11/21 05/11/21 05/11/21 16:58 17:20 20:18 WBC RBC Hgb Hct RDW Plt Count Lymph % (Auto) Lymph # (Auto) Seg Neutrophils % Seg Neuts % (Manual) Lymphocytes % (Manual) Lymphocytes # (Manual) PT APTT D-Dimer ABG pH ABG pO2 345.1 H ABG HCO3 33.9 H ABG O2 Saturation 99.5 H ABG Base Excess 8.6 H ABG Hemoglobin 8.1 L Oxyhemoglobin Sodium Potassium Chloride Carbon Dioxide BUN Creatinine Glucose POC Glucose 161 H Magnesium Ferritin AST ALT Lactate Dehydrogenase Total Creatine Kinase C-Reactive Protein Total Protein Albumin TSH Free T4 Coronavirus (PCR) Crossmatch See Detail 05/11/21 05/12/21 05/12/21 21:27 07:20 07:20 WBC RBC 2.55 L Hgb 7.6 L Hct 23.0 L RDW 18.0 H Plt Count Lymph % (Auto) Lymph # (Auto) Seg Neutrophils % Seg Neuts % (Manual) Lymphocytes % (Manual) Lymphocytes # (Manual) PT APTT D-Dimer ABG pH ABG pO2 ABG HCO3 ABG O2 Saturation ABG Base Excess ABG Hemoglobin Oxyhemoglobin Sodium Potassium 5.1 H Chloride Carbon Dioxide 32 H BUN 51 H Creatinine 1.3 H Glucose POC Glucose 109 H Magnesium Ferritin AST ALT Lactate Dehydrogenase Total Creatine Kinase C-Reactive Protein Total Protein Albumin TSH Free T4 Coronavirus (PCR) Crossmatch 05/12/21 05/12/21 05/12/21 08:25 11:43 17:26 WBC RBC Hgb Hct RDW Plt Count Lymph % (Auto) Lymph # (Auto) Seg Neutrophils % Seg Neuts % (Manual) Lymphocytes % (Manual) Lymphocytes # (Manual) PT APTT D-Dimer ABG pH 7.502 H ABG pO2 223.9 H ABG HCO3 34.6 H ABG O2 Saturation 99.4 H ABG Base Excess 10.5 H ABG Hemoglobin 5.3 L Oxyhemoglobin Sodium Potassium Chloride Carbon Dioxide BUN Creatinine Glucose POC Glucose 107 H 137 H Magnesium Ferritin AST ALT Lactate Dehydrogenase Total Creatine Kinase C-Reactive Protein Total Protein Albumin TSH Free T4 Coronavirus (PCR) Crossmatch 05/12/21 05/13/21 05/13/21 21:02 01:52 05:36 WBC RBC Hgb Hct RDW Plt Count Lymph % (Auto) Lymph # (Auto) Seg Neutrophils % Seg Neuts % (Manual) Lymphocytes % (Manual) Lymphocytes # (Manual) PT APTT D-Dimer ABG pH ABG pO2 ABG HCO3 ABG O2 Saturation ABG Base Excess ABG Hemoglobin Oxyhemoglobin Sodium Potassium Chloride Carbon Dioxide BUN Creatinine Glucose POC Glucose 120 H 136 H 122 H Magnesium Ferritin AST ALT Lactate Dehydrogenase Total Creatine Kinase C-Reactive Protein Total Protein Albumin TSH Free T4 Coronavirus (PCR) Crossmatch 05/13/21 05/13/21 05/13/21 06:02 06:02 11:47 WBC RBC 2.45 L Hgb 7.5 L Hct 22.4 L RDW 17.6 H Plt Count Lymph % (Auto) Lymph # (Auto) Seg Neutrophils % Seg Neuts % (Manual) Lymphocytes % (Manual) Lymphocytes # (Manual) PT APTT D-Dimer ABG pH ABG pO2 ABG HCO3 ABG O2 Saturation ABG Base Excess ABG Hemoglobin Oxyhemoglobin Sodium Potassium Chloride Carbon Dioxide BUN 59 H Creatinine 1.3 H Glucose 131 H POC Glucose 143 H Magnesium Ferritin AST ALT Lactate Dehydrogenase Total Creatine Kinase C-Reactive Protein Total Protein Albumin TSH Free T4 Coronavirus (PCR) Crossmatch 05/13/21 05/13/21 05/14/21 17:42 22:07 02:03 WBC RBC Hgb Hct RDW Plt Count Lymph % (Auto) Lymph # (Auto) Seg Neutrophils % Seg Neuts % (Manual) Lymphocytes % (Manual) Lymphocytes # (Manual) PT APTT D-Dimer ABG pH ABG pO2 ABG HCO3 ABG O2 Saturation ABG Base Excess ABG Hemoglobin Oxyhemoglobin Sodium Potassium Chloride Carbon Dioxide BUN Creatinine Glucose POC Glucose 161 H 124 H 144 H Magnesium Ferritin AST ALT Lactate Dehydrogenase Total Creatine Kinase C-Reactive Protein Total Protein Albumin TSH Free T4 Coronavirus (PCR) Crossmatch 05/14/21 05/14/21 05/14/21 05:15 05:15 05:26 WBC RBC 2.73 L Hgb 7.9 L Hct 25.0 L RDW 17.0 H Plt Count Lymph % (Auto) Lymph # (Auto) Seg Neutrophils % Seg Neuts % (Manual) Lymphocytes % (Manual) Lymphocytes # (Manual) PT APTT D-Dimer ABG pH ABG pO2 ABG HCO3 ABG O2 Saturation ABG Base Excess ABG Hemoglobin Oxyhemoglobin Sodium Potassium Chloride Carbon Dioxide 31 H BUN 40 H Creatinine Glucose 114 H POC Glucose 113 H Magnesium Ferritin AST ALT Lactate Dehydrogenase Total Creatine Kinase C-Reactive Protein Total Protein Albumin TSH Free T4 Coronavirus (PCR) Crossmatch 05/14/21 11:48 WBC RBC Hgb Hct RDW Plt Count Lymph % (Auto) Lymph # (Auto) Seg Neutrophils % Seg Neuts % (Manual) Lymphocytes % (Manual) Lymphocytes # (Manual) PT APTT D-Dimer ABG pH ABG pO2 ABG HCO3 ABG O2 Saturation ABG Base Excess ABG Hemoglobin Oxyhemoglobin Sodium Potassium Chloride Carbon Dioxide BUN Creatinine Glucose POC Glucose 113 H Magnesium Ferritin AST ALT Lactate Dehydrogenase Total Creatine Kinase C-Reactive Protein Total Protein Albumin TSH Free T4 Coronavirus (PCR) Crossmatch Chest x-ray: pending Allied health notes reviewed: nursing
[2021-05-14] MEDS ORDERED: diphenhydrAMINE 50 MG/ML VIAL IV PRN (14:06)
[2021-05-14] MEDS ORDERED: LORazepam 2 MG/ML VIAL IV PRN ×2 (14:06)
[2021-05-14] MEDS ORDERED: ACETAMINOPHEN 650 MG RECT SUPP PR PRN (14:06)
[2021-05-14] MEDS ORDERED: MORPHINE 2 MG/1 ML INJ IV PRN (14:06)
[2021-05-14] MEDS ORDERED: MINERAL OIL/PETROLATUM, WHITE OPHTH OINT 3.5 GM OU PRN (14:11)
--- NOTE | 2021-05-14 14:29 | Progress Note ---
Assessment and Plan Cultures: Blood culture 05/02/2021 no growth Sputum culture 05/02/2021 no growth A/P: 89-year-old female past medical history hypertension now with: #Severe COVID-19 pneumonia: Patient presented with a week of symptoms, chest x- ray with diffuse bilateral infiltrates, admission O2 sats on room air. Inflammatory markers elevated #Acute hypoxemic respiratory failure: Likely secondary to COVID-19 infection. Currently on the vent #PEA arrest: ROSC achieved after 1 round of epi Recommendations: -Dexamethasone 6 mg IV/PO daily for 10 days -Obtain q48-72h inflammatory markers - ferritin, Ddimer, CRP, LDH -Anticoagulation per hospital protocol -Proning as able -Completed cefepime Thank you for the consult, we will continue to follow. Rhianna Gallagher MD [facility] ([facility] O: [phone] F: [phone] Subjective Date of service: 05/14/21 Principal diagnosis: Symptomatic bradycardia; AHRF; Cardiogenic shock; Thrombocytopenia; AMS Interval history: Afebrile, normal white count. Remains on the vent. Objective - Exam Narrative Exam: Physical exam deferred to reduce risk of transmission of COVID-19. Please refer to primary team's note. - Constitutional Vitals: Vital Signs Temp Pulse Resp BP Pulse Ox 97.9 F 66 12 157/71 96 05/14/21 12:00 05/14/21 14:00 05/14/21 14:00 05/14/21 14:00 05/14/21 14:00 Temperature -Last 24 Hours Temperature 97.9 F Temperature 99 F Temperature 98.6 F Temperature 97.8 F Temperature 98.5 F - Labs CBC & Chem 7: 05/14/21 05:15 05/14/21 05:15 Labs: Abnormal lab results 05/13/21 05/13/21 05/14/21 Range/Units 17:42 22:07 02:03 RBC (3.65-5.03) M/mm3 Hgb (10.1-14.3) gm/dl Hct (30.3-42.9) % RDW (13.2-15.2) % Carbon Dioxide (22-30) mmol/L BUN (7-17) mg/dL Glucose (65-100) mg/dL POC Glucose 161 H 124 H 144 H (70-105) mg/dL 05/14/21 05/14/21 05/14/21 Range/Units 05:15 05:15 05:26 RBC 2.73 L (3.65-5.03) M/mm3 Hgb 7.9 L (10.1-14.3) gm/dl Hct 25.0 L (30.3-42.9) % RDW 17.0 H (13.2-15.2) % Carbon Dioxide 31 H (22-30) mmol/L BUN 40 H (7-17) mg/dL Glucose 114 H (65-100) mg/dL POC Glucose 113 H (70-105) mg/dL 05/14/21 Range/Units 11:48 RBC (3.65-5.03) M/mm3 Hgb (10.1-14.3) gm/dl Hct (30.3-42.9) % RDW (13.2-15.2) % Carbon Dioxide (22-30) mmol/L BUN (7-17) mg/dL Glucose (65-100) mg/dL POC Glucose 113 H (70-105) mg/dL
[2021-05-14 14:42] VITALS: BP 157/71
--- NOTE | 2021-05-14 16:15 | Death Note ---
Note Date of : 05/14/21 Time of : 16:07 Time Pronounced: 16:10 - Preliminary Cause of (problem) (1) Acute respiratory failure Preliminary cause of (2) Pneumonia Preliminary cause of (3) COVID-19 Preliminary cause of
[2021-05-15] MEDS ORDERED: LEVOTHYROXINE 50 MCG TAB FEEDTUBE SCH (06:00)
--- NOTE | 2021-05-15 09:02 | Progress Note ---
Assessment and Plan - Patient Problems (1) Chronic respiratory failure with hypoxia Status: Acute Plan to address problem: 1) Family to withdraw care. Called the OR and cancelled trach/peg. Subjective Date of service: 05/14/21 Patient Reports: Positive: no new complaints (Arrived at hospital to do trach/peg. However, family has decided to discontinue care.) Objective - Labs 05/14/21 05:15 05/14/21 05:15
--- NOTE | 2021-05-15 11:06 | Death Summary ---
Summary - Providers Date of service: 05/15/21 Consults: 05/02/21 07:06 Consult to Physician [CONS] Stat Comment: Consulting Provider: PEDRO WATERS Physician Instructions: Reason For Exam: Symptomatic bradycardia, transcutaneous pacing 05/02/21 08:56 Consult to Physician [CONS] Stat Comment: Consulting Provider: JESUS LOW Physician Instructions: Reason For Exam: ICU patient/vent management 05/02/21 09:03 PICC Line Insertion [Consult to PICC Line RN] [CONS] Stat Reason For Exam: pressors Type Line:: PICC 05/03/21 11:15 Consult to Dietitian/Nutrition [CONS] Routine Physician Instructions: Reason For Exam: Reason for Consult: Write/Manage Tube Feeding 05/06/21 13:30 Consult to Physician [CONS] Routine Comment: called office/ chandler Consulting Provider: YUDI LOPEZ Physician Instructions: Reason For Exam: covid pna 05/07/21 20:36 Consult to Dietitian/Nutrition [CONS] Routine Physician Instructions: Reason For Exam: Reason for Consult: Write/Manage Tube Feeding 05/12/21 16:16 Consult to Physician [CONS] Routine Comment: dr. house o/pranav arteaga Consulting Provider: SHAYY SINGLETARY Physician Instructions: Reason For Exam: Tracheostomy and PEG placement Attending: SHERYL WHITEHEAD MD - summary Date of admission: 05/02/21 08:59 Date of : 05/14/21 Reason for admission: Cardiac Arrest Disposition: This is a 89-year-old female with known history of HTN, legally blind, and recent UTI initially admitted altered mental status, decreased responsiveness, bradycardia requiring dopamine gtt and transvenous pacemaker maker placement. Patient subsequently PEA arrested with ROSC in the ED was intubated and placed on ventilatory support. Patient was transferred in the ICU while in the ICU patient COVID PCR came back positive and initiated on COVID 19 treatment and ID was consulted. Patient hospital course was complicated due to acute hypoxic respiratory failure, with X2 failed extubation. patient required a tracheostomy and PEG tube placement, General surgery was consulted for the procedure consent was signed and patient was on the OR schedule for 05/14/21. On 05/14/21, the nursing staffs received a call from patient's daughter and grandson stating that they do not wish to proceed with Trach and PEG and opted for AND/DNR status with withdrawal of care. Patient's grandson and daughter came in that day and visited the patient, the AND/DNR and withdrawal of care paperworks were signed and withdrawal of care orders were placed per protocol. Patient was pronounced on 05/14/21 at 16:10. Patient's family were present at the window. Bereavement arrangements made with the nursing staffs. Hospital Course to Date: 05/03: s/p cardiac arrest, remains unresponsive, not on any sedation. +gag/cough and corneal reflex, pending CT head/brain. Patient H&H also dropped this am, 1unit of PRBCs ordered. Hyperkalemia was treated per protoocl, repeat BMP at 1600. BR was initiated for severe constipation, TF was initiated. 05/04: Patient is awake this am, following simple commands. Off dopamine gtt and Transvenous pacer at a back rate of 60. COVID PCR +, patient is on IV Abx and IV steroids. Awaiting cardio recommendation, if no plan for PPM insertion, plan for PST for possible extubation. 05/05: On sedation this am due to increase agitation. Patient failed SAT this am. 1unit ordered for low H&H this am with worsening in thrombocytopenia, AC held and stool occult ordered. Transvenous pacer still present at a back up rate of 50, patient SR on the monitor this am, HR in the 60s. Plan for possible TVP removal tomorrow by Cardio. 05/06: Patient tried on PSV today, hydralazine p.o. for hypertension (initial DCCV but discontinued due to transvenous pacemaker in place), HIT panel ordered. 05/07: Transvenous catheter removed by cardiology, placed on SBT. Head still pending. Repeat thyroid studies show slight improvement. No acute events reported overnight. Home Norvasc changed to hydralazine today 05/08: Added Seroquel per [facility], systemic steroids started for laryngeal edema and patient started on IV Lasix for 3 days. Drop in H/H from 8.2/24.7-7.7/24 noted, will repeat CBC in the a.m. Thrombocytopenia has improved. Patient was extubated yesterday afternoon however she had to be reintubated late evening due to increased work of breathing. Given Dulcolax suppository today 05/09: Continue Seroquel, begin scopolamine for secretion control, CCM and vent changes and will continue Lasix for 1 more day. Given mag citrate 05/10: Patient on CPAP trial, started on Robinul and Mucomyst, CCM will continue Lasix for 2 more days and Seroquel increased to 25 mg due to agitation. 05/11: extubated today. ADALID overngiht 05/12: Patient was reintubated due to stridor and hypoxia, surgery consulted for trach/peg. Increase in Cr but she was on lasix for 2 doses which ended today per ccm. 05/13: Remains on the vent and on low dose sedation. S/p X2 failed extubation patient will need Trach and PEG. Possible conference call with dough braker and patien't family to discuss POC. Abdominal distention, no BM in 2 days will repeat mag CitrateX1. 05/14: ADALID overnight. Per case management, patient's family stated that they do not wish to proceed with Trach and PEG at this time and they are considering possible withdrawal of care. Patient's family is scheduled to come in at 1400 today to visit patient. Awaiting family finally decision. Trach and PEG on hold for now. #Acute Hypoxic Respiratory Failure #COVID Pneumonia #Symptomatic Bradycardia #PEA Arrest Status post ROSC #Cardiogenic ShocK #Acute Metabolic Encephalopathy #Severe Constipation #Transaminitis #Anemia #Thrombocytopenia - Complications Complications: Cause of : Acute Hypoxic Respiratory Failure
== END 2021-05-14 16:40 | DRG 207 ==
LOC: ED 05:08 → CC1 08:59 → IMCU 16:36 → CC1 05-04 06:18
PROVIDERS: ADMIT Internal Medicine; ATTEND Internal Medicine
PROC: 5A1955Z Respiratory Ventilation, Greater than 96 Consecutive Hours (ICD-10-PCS; principal; 2021-05-02)
PROC: 0BH17EZ Insertion of Endotracheal Airway into Trachea, Via Natural or Artificial Opening (ICD-10-PCS; 2021-05-02)
PROC: 5A1223Z Performance of Cardiac Pacing, Continuous (ICD-10-PCS; 2021-05-02)
PROC: 30233N1 Transfusion of Nonautologous Red Blood Cells into Peripheral Vein, Percutaneous Approach (ICD-10-PCS; 2021-05-03)
PROC: 5A09357 Assistance with Respiratory Ventilation, Less than 24 Consecutive Hours, Continuous Positive Airway Pressure (ICD-10-PCS; 2021-05-07)
PROC: 5A09357 Assistance with Respiratory Ventilation, Less than 24 Consecutive Hours, Continuous Positive Airway Pressure (ICD-10-PCS; 2021-05-11)
DX: U07.1 COVID-19 (principal); J12.82 Pneumonia due to coronavirus disease 2019; J96.01 Acute respiratory failure with hypoxia; G93.41 Metabolic encephalopathy; E03.5 Myxedema coma; E87.1 Hypo-osmolality and hyponatremia; N17.9 Acute kidney failure, unspecified; E87.5 Hyperkalemia; R00.1 Bradycardia, unspecified; I46.9 Cardiac arrest, cause unspecified; I10 Essential (primary) hypertension; H54.8 Legal blindness, as defined in USA; F17.210 Nicotine dependence, cigarettes, uncomplicated; R57.0 Cardiogenic shock; R68.0 Hypothermia, not associated with low environmental temperature; E07.81 Sick-euthyroid syndrome; D64.9 Anemia, unspecified; E03.9 Hypothyroidism, unspecified; K59.00 Constipation, unspecified; D69.6 Thrombocytopenia, unspecified; D72.819 Decreased white blood cell count, unspecified; Z87.440 Personal history of urinary (tract) infections
CPT/HCPCS: 33210; 36415; 36600; 71045; 74018; 80048; 80053; 80076; 82140; 82550; 82728; 82803; 82962; 83615; 83735; 83880; 84100; 84132; 84145; 84439; 84443; 84478; 84484; 85007; 85025; 85027; 85379; 85610; 85730; 86022; 86140; 86850; 86900; 86901; 86920; 87040; 87070; 87205; 93005; 93010; 93306; 94002; 94003; 94640; 94660; G0378; J3490; J7120; Q9967; C1894; C8929; J0171; J0360; J0461; J0610; J0692; J1100; J1265; J1644; J1650; J1720; J1815; J1940; J2060; J2250; J2270; J2704; J2765; J3010; J7040; J7042; P9016; U0003